=== PATIENT | female | born 1940 | race Caucasian/White ===

== ENCOUNTER 2019-08-22 05:51 | Inpatient (IN) | payer OTHER ==
[2019-08-20 12:07] VITALS: BMI 32.0
[2019-08-22] MEDS ORDERED: MIDAZOLAM HCL 2 MG/2 ML SINGLE DOSE VIAL ONE (07:06)
[2019-08-22] MEDS ORDERED: BUPIVACAINE LIPOSOME/PF (EXPAREL) 266 MG/20 ML VIAL ONE (07:07)
[2019-08-22] MEDS ORDERED: SODIUM CHLORIDE 0.9% P/F 10 ML VIAL IJ ONE (07:07)
[2019-08-22] MEDS ORDERED: BUPIVACAINE HCL/PF 0.5% (5MG/ML) 10 ML VIAL ONE (08:18)
[2019-08-22] MEDS ORDERED: PROPOFOL 20 ML ONE ×4 (08:19)
[2019-08-22] MEDS ORDERED: EPHEDRINE SULFATE/0.9% NACL/PF 50 MG/10 ML SYRINGE NR ONE (08:19)
[2019-08-22] MEDS ORDERED: VANCOMYCIN 1,000 MG VIAL (RESTRICTED TO ID ONLY) ONE (08:25)
[2019-08-22] MEDS ORDERED: TRANEXAMIC ACID 1000 MG/10 ML VIAL IVPUSH ONE (10:00)
[2019-08-22] MEDS ORDERED: CEFAZOLIN 2 GM in DEXTROSE 5%-WATER - 50 ML IVPB ONE (10:00)
[2019-08-22] MEDS ORDERED: VANCOMYCIN 1,000 MG in DEXTROSE 5%-WATER - 250 ML IVPB ONE (10:00)
[2019-08-22] MEDS ORDERED: BENZOIN/ALOE VERA/STORAX/TOLU 58 ML BOTTLE ONE (10:50)
[2019-08-22] MEDS ORDERED: MAGNESIUM HYDROX 2400MG/30ML ORAL SUSPENSION 30 ML CUP PO PRN (10:54)
[2019-08-22] MEDS ORDERED: MAG HYDROX/AL HYDROX/SIMETH 30 ML UNIT-DOSE CUP PO PRN (10:54)
--- NOTE | 2019-08-22 10:57 | PN ---
Progress Note (short form) - Note Progress Note: 79F s/p RIGHT total knee replacement & right patellar lateral release POD #0. -Pain control: per anaesthesia team. -DVT PPx: -Chemical: ASA 81mg PO BID x 6 weeks. -Mechanical: SORAYA's, SCD's. -Incentive spirometry q15 min. -PT/OT/Rehab, OOB. -WBAT RLE. -Post-op Ancef x 3 doses. -f/u post-op TOV: 8 hours max. -f/u AM labs. -Diet as tolerated. -Care per medical hospitalist team. -Discharge planning: f/u [facility] [place] Office next ; call for appointment . -Will follow. Fitz Pardo MD (Orthopaedic Surgery).
--- NOTE | 2019-08-22 10:59 | OP ---
Operative Note - Note: Operative Date: 08/22/19 Pre-Operative Diagnosis: Right knee DJD Operation: Right TKA Findings: Tourniquet Pressure: 350mmHg Tourniquet Time: 109 minutes Implants: [employer]. Femur - 4. Tibia - 5. Poly - 11mm, TS. Patella - 27mm, symmetric Post-Operative Diagnosis: Same as Pre-op Surgeon: Fitz Pardo Layout Former: Barron Pardo Anesthesiologist/MERCHANDISE PRESENTATION MANAGER: Rosalind Tinoco Anesthesia: Spinal Specimens Removed: Bone, soft tissue Estimated Blood Loss (mls): 0 Drains & Tubes with Location: 1 x deep HemoVac Fluid Volume Replaced (mls): 1,200 (Crystalloid) Operative Report Dictated: Yes
[2019-08-22] MEDS ORDERED: CEFAZOLIN 2 GM/D5W 2 GRAM/50 ML ML IVPB SCH (11:00)
[2019-08-22] MEDS ORDERED: LACTATED RINGERS SOLUTION 1,000 ML IV SCH (11:00)
[2019-08-22] MEDS ORDERED: ACETAMINOPHEN 325 MG TABLET (FP) ONE (11:42)
[2019-08-22] MEDS: ACETAMINOPHEN 325 MG TABLET (FP) PO SCH ×2 (11:50→18:05)
[2019-08-22] MEDS: oxyCODONE HCL 5 MG TABLET PO PRN ×4 (12:00→21:30)
--- NOTE | 2019-08-22 13:05 | HP ---
HISTORY OF PRESENT ILLNESS: 79 year-old female with a PMH significant for HTN, COPD, and DJD s/p right total knee arthroplasty today with Dr. aPrdo. Recent Travel: No PAST MEDICAL HISTORY: Hypertension COPD PAST SURGICAL HISTORY: None reported Social History: Smoking: never Alcohol: no Drugs: no Family History Father 62 MA; mother Allergies Sulfa (Sulfonamide Antibiotics) Allergy (Severe, Verified 08/20/19 11:56) Rash ibuprofen Adverse Reaction (Severe, Verified 08/20/19 11:57) RBC'S DROPPED HOME MEDICATIONS: Home Medications Medication Instructions Recorded Amlodipine Besylate 10 mg PO DAILY 08/20/19 Ascorbic Acid [Vitamin C] 1,000 mg PO DAILY 08/20/19 Losartan Potassium 100 mg PO DAILY 08/20/19 Lovastatin 20 mg PO HS 08/20/19 Omeprazole 20 mg PO DAILY 08/20/19 REVIEW OF SYSTEMS CONSTITUTIONAL: Absent: fever, chills, diaphoresis, generalized weakness, malaise, loss of appetite, weight change HEENT: Absent: rhinorrhea, nasal congestion, throat pain, throat swelling, difficulty swallowing, mouth swelling, ear pain, eye pain, visual changes CARDIOVASCULAR: Absent: chest pain, syncope, palpitations, irregular heart rate, lightheadedness, peripheral edema RESPIRATORY: Absent: cough, shortness of breath, dyspnea with exertion, orthopnea, wheezing, stridor, hemoptysis GASTROINTESTINAL: Absent: abdominal pain, abdominal distension, nausea, vomiting, diarrhea, constipation, melena, hematochezia GENITOURINARY: +uncomfortable bladder fullness Absent: dysuria, frequency, urgency, hesitancy, hematuria, flank pain, genital pain MUSCULOSKELETAL: Absent: myalgia, arthralgia, joint swelling, back pain, neck pain SKIN: Absent: rash, itching, pallor HEMATOLOGIC/IMMUNOLOGIC: Absent: easy bleeding, easy bruising, lymphadenopathy, frequent infections ENDOCRINE: Absent: unexplained weight gain, unexplained weight loss, heat intolerance, cold intolerance NEUROLOGIC: Absent: headache, focal weakness or paresthesias, dizziness, unsteady gait, seizure, mental status changes, bladder or bowel incontinence PSYCHIATRIC: Absent: anxiety, depression, suicidal or homicidal ideation, hallucinations. PHYSICAL EXAMINATION Vital Signs - 24 hr 08/22/19 08/22/19 08/22/19 06:48 11:10 11:15 Temperature 98.3 F 97.7 F Pulse Rate 98 H 76 68 Respiratory 18 19 18 Rate Blood Pressure 132/76 119/44 L 118/59 L O2 Sat by Pulse 98 Oximetry (%) 08/22/19 08/22/19 08/22/19 11:20 11:25 11:40 Temperature Pulse Rate 67 68 69 Respiratory 18 16 20 Rate Blood Pressure 118/49 L 111/57 L 114/54 L O2 Sat by Pulse 98 98 98 Oximetry (%) 08/22/19 11:52 Temperature Pulse Rate 69 Respiratory 20 Rate Blood Pressure 114/54 L O2 Sat by Pulse 98 Oximetry (%) GENERAL: Awake, alert, and fully oriented, in no acute distress. LUNGS: Breath sounds equal, clear to auscultation bilaterally. No wheezes, and no crackles. No accessory muscle use. HEART: Regular rate and rhythm, normal S1 and S2 ABDOMEN: Soft, nontender, not distended UPPER EXTREMITIES: 2+ pulses, warm, well-perfused. No cyanosis. No clubbing. No peripheral edema. RLE: Surgical dressing c/d/i; ice pack; +Hemovac sanguinous drainage; +flex/extend toes, sensory intact NEUROLOGICAL: Cranial nerves II-XII intact. Normal speech. Laboratory Results - last 24 hr 08/22/19 08/22/19 08:13 08:14 Blood Type O POSITIVE O POSITIVE Antibody Screen Negative Pre op Hgb 12.3 BUN 18 Cr 0.8 Intra op LR 1200ccs EBL 5ccs Cefazolin 2g; Vanc x 1g ASSESSMENT/PLAN 79 year-old female with a PMH significant for HTN, COPD, and DJD s/p right total knee arthroplasty today with Dr. Pardo. Right total knee arthoplasty --POD #0 --perioperative antibiotics per surgery --pain management per surgery --ASA 81mg BID --protonix --bowel regimen --incentive spirometry --Hemovac drain, monitor output Urinary retention --patient has not voided for several hours, discussed with Dr. Barron Pardo, chet harmoney Hypertension --resume amlodipine, losartan in am COPD --Symbicort FEN Fluids: LR@100mL/hr Electrolytes: replete as indicated Nutrition: regular diet DVT prophylaxis: OOB, ambulation, SCDs, TEDs, ASA 81mg BID Physical therapy Dispo: continues to require inpatient care. Full code. Visit type - Emergency Visit Emergency Visit: No - New Patient This patient is new to me today: Yes Date on this admission: 08/22/19 - Critical Care Critical Care patient: No
[2019-08-22] MEDS: CEFAZOLIN 2 GM/D5W 2 GRAM/50 ML ML IVPB SCH ×2 (14:51→20:12)
[2019-08-22] MEDS ORDERED: PT OWN MED DRAWER 7, Y5N ONE (21:21)
[2019-08-22] MEDS: ASPIRIN 81 MG CHEWABLE TABLETS PO SCH (21:24)
[2019-08-22] MEDS: SENNOSIDES/DOCUSATE COMBO (SENNA PLUS) TABLET (UD) PO SCH (21:24)
[2019-08-22] MEDS: BUDESONIDE/FORMETEROL FUMARATE 160/4.5 mcg INHALER IH SCH (21:24)
[2019-08-22] MEDS ORDERED: PATIENT'S OWN MEDICATION (NON-FORMULARY) (Lovastatin [Lovastatin] 20 MG) PO SCH (22:00)
[2019-08-22] MEDS ORDERED: oxyCODONE HCL 10 MG SUSTAINED ACTING TABLET PO SCH (22:00)
[2019-08-23] MEDS: ACETAMINOPHEN 325 MG TABLET (FP) PO SCH ×5 (00:10→23:11)
--- NOTE | 2019-08-23 00:42 | OP ---
DATE OF OPERATION: 08/22/2019 SURGEON: Fitz Pardo MD. TRAFFIC SURVEY TECHNICIAN: Barron Pardo MD; JOANN Mayberry. PREOPERATIVE DIAGNOSIS: Tricompartmental osteoarthritis, right knee with fixed valgus deformity. POSTOPERATIVE DIAGNOSIS: Tricompartmental osteoarthritis, right knee with fixed valgus deformity. OPERATION: 1. Right cemented total knee arthroplasty. (03282) 2. Open lateral release. (09562) ANESTHESIA: Conscious sedation with spinal anesthesia and peripheral nerve block. ANTIBIOTICS GIVEN: 2 g Kefzol, 1 g vancomycin preoperative; 1 g Ancef at the time of release of the tourniquet. TOURNIQUET: Released at 105 minutes. OPERATION DETAILS: OPERATION DETAILS: The patient was correctly identified, brought in operating room. Right lower extremity was prepped, draped in the routine manner with Betadine scrub solution, wiped off with alcohol, DuraPrep applied. Timeout was called. The imaging was available for intraoperative evaluation. The knee was flexed at 45 degrees. Incision was made 2 inches above the superimposed patella, extending all the way down to just distal to the pubic tubercle. The skin incision was taken through the subcutaneous fat to the fascia. The proximal medial aspect of the tibial soft tissue was freed off the tibia using sharp dissection extending all the way to the back of the tibia, that is the junction of the medial surface and the posterior border of the tibia. The dissection was then curved at the level of the inferior pole of the patella medially. At that point, the epimysium of vastus medialis was dissected off the actual muscle, and the muscle lifted from linea aspera maintaining the entirety integrity of the muscle, and the distal incision up to this proximal incision to lift the entire and free the entire muscle and quadriceps mechanism anteriorly without any difficulty. With finger digital palpation, the suprapatellar pouch space was entered, and then a blunt Hohmann into position. The suprapatellar pouch itself was excised so as to expose the superior surface of the actual femur. The knee was flexed with the tibia in external rotation. The patella was subluxed laterally, giving excellent exposure to the knee. Severe tricompartment osteoarthritis encountered. The knee itself, the first cuts made also protecting the soft tissues with sharp Hohmanns and blunt Hohmanns lifting interiorizing the tibia with the tibial jig. This was centered on the pannus and on the posterior tibial eminence, and the height was based on 2 mm off the betzaida on the lateral side. The cut was made with no complications. The starter femoral hole was made slightly medial to the intracondylar notch, this to accommodate the deficiency of the lateral femoral condyle. The jig was set at 8 mm resection and 4 degrees of valgus. The bony cut was made, and then the knee extended to check its alignment and gap, and this was proved to be very adequate. The appropriate jig systems were utilized, a size 4 femur and the measurement for a size 5 tibia. All jig cuts were made with the appropriate jig systems. The drilling of the tibia and the keel cuts were made appropriately. The trial components were inserted. The patella was then cut [place] line, that is from the patellar ligament to the quadriceps tendon. The jig of the femur also took into account Yoan line as well as the transepicondylar axis and pairing up to the originally cut tibia. The flexion, extension gaps were even at 11 mm. Once this had been performed, all jig cuts were satisfactory, and trialing components revealed excellent seating of all components with an 11-mm polyethylene; this seemed to be the best fit for flexion as well as complete stability of extension and flexion. The bone bed was thoroughly lavaged with pulse lavage. All fluid sucked out of the interstices. Cementing with low-viscosity cement and pressurized into the bone bed performed. All of the implants were seated, a size 4 femur, size 5 tibia, size 27-mm patellar button, and an 11 polyethylene liner. All extraneous cement was removed after it had cured and trialing once again with the patellar polyethylene revealed the most satisfactory articulation. A TS posterior stabilized polyethylene utilized because of the stress to the medial collateral ligament due to the valgus deformity. The current tracking was suboptimal. It was wanting to slide off. An approximately 3-inch lateral release was performed; this solved the problem completely. The wounds were then again thoroughly lavaged. Closure: Retinacular tissue with number 1 Vicryl, that is in the medial side. The vastus medialis was completely intact as was the quadriceps mechanism. The subcutaneous tissue was closed with number 1 Vicryl, and skin 3- 0 Monocryl with Steri-Strips. Drainage, one 8-inch Hemovac brought up laterally draining the subvastus bed. No complications. X-rays were taken, showed excellent positioning of implants. MD ALEXANDER [id number] MTDD
[2019-08-23] MEDS: oxyCODONE HCL 5 MG TABLET PO PRN ×2 (01:28→23:11)
[2019-08-23] MEDS: CEFAZOLIN 2 GM/D5W 2 GRAM/50 ML ML IVPB SCH (01:29)
[2019-08-23] MEDS: ONDANSETRON 4 MG/2 ML VIAL IVPUSH PRN ×3 (07:37→21:04)
[2019-08-23 07:56] LABS: HEMATOCRIT 31.5 % (32.4-45.2); HEMOGLOBIN 10.1 GM/dl (10.7-15.3); MCH 30.8 pg (25.7-33.7); MCHC 32.1 g/dl (32.0-36.0); MEAN CELL VOLUME 95.9 fl (80-96); MEAN PLT VOLUME 7.5 fl (7.5-11.1); PLATELET COUNT 256 K/MM3 (134-434); RBC 3.29 M/mm3 (3.60-5.2); RDW 13.1 % (11.6-15.6); WHITE BLOOD COUNT 11.1 K/mm3 (4.0-10.8)
[2019-08-23 08:00] LABS: CALCIUM 9.4 mg/dl (8.5-10); CREATININE 0.8 mg/dl (0.55-1.3); MAGNESIUM 1.6 mg/dL (1.8-2.4); POTASSIUM 4.5 mmol/L (3.5-5.1)
[2019-08-23] MEDS ORDERED: PT OWN MED DRAWER 7, Y5N ONE (08:06)
--- NOTE | 2019-08-23 08:36 | PN ---
Physical Exam: SUBJECTIVE: Patient seen and examined oob to chair. Observed walking with PT. Complained of nausea earlier. OBJECTIVE: Vital Signs Period Temp Pulse Resp BP Sys/Hardy Pulse Ox Last 24 Hr 97.7 F-98.9 F 67-86 16-20 111-137/44-59 94-98 GENERAL: Awake, alert, and fully oriented, in no acute distress. LUNGS: Breath sounds equal, clear to auscultation bilaterally. No wheezes, and no crackles. No accessory muscle use. HEART: Regular rate and rhythm, normal S1 and S2 ABDOMEN: Soft, nontender, not distended UPPER EXTREMITIES: 2+ pulses, warm, well-perfused. No cyanosis. No clubbing. No peripheral edema. RLE: Surgical dressing c/d/i; ice pack; +Hemovac sanguinous drainage; +flex/extend toes, sensory intact NEUROLOGICAL: Cranial nerves II-XII intact. Normal speech. Laboratory Results - last 24 hr 08/22/19 08/22/19 08/23/19 08:13 08:14 06:40 WBC 11.1 H RBC 3.29 L Hgb 10.1 L Hct 31.5 L MCV 95.9 MCH 30.8 MCHC 32.1 RDW 13.1 Plt Count 256 MPV 7.5 Sodium Potassium Chloride Carbon Dioxide Anion Gap BUN Creatinine Est GFR (CKD-EPI)AfAm Est GFR (CKD-EPI)NonAf Random Glucose Calcium Magnesium Blood Type O POSITIVE O POSITIVE Antibody Screen Negative 08/23/19 06:40 WBC RBC Hgb Hct MCV MCH MCHC RDW Plt Count MPV Sodium 128 L Potassium 4.5 Chloride 96 L Carbon Dioxide 25 Anion Gap 7 L BUN 15.0 Creatinine 0.8 Est GFR (CKD-EPI)AfAm 80.14 Est GFR (CKD-EPI)NonAf 69.14 Random Glucose 132 H Calcium 9.4 Magnesium 1.6 L Blood Type Antibody Screen Active Medications Generic Name Dose Route Start Last Admin Trade Name Freq PRN Reason Stop Dose Admin Acetaminophen 650 mg 08/22/19 12:00 08/23/19 05:56 Tylenol - PO 08/25/19 11:59 650 mg Q6H TARA Administration Al Hydroxide/Mg Hydroxide 30 ml 08/22/19 10:54 Mylanta Oral Suspension - PO Q4H PRN DYSPEPSIA Amlodipine Besylate 10 mg 08/23/19 10:00 Norvasc - PO DAILY [facility] Aspirin 81 mg 08/22/19 22:00 08/22/19 21:24 Asa - PO 81 mg BID TARA Administration Budesonide/Formoterol Fumarate 2 puff 08/22/19 22:00 08/22/19 21:24 Symbicort 160/4.5mcg - IH 2 puff BID TARA Administration Losartan Potassium 100 mg 08/23/19 10:00 Cozaar - PO DAILY [facility] Magnesium Hydroxide 30 ml 08/22/19 10:54 Milk Of Magnesia - PO PRN PRN CONSTIPATION Non-Formulary Medication 20 mg 08/22/19 22:00 Lovastatin [Lovastatin] PO HS [facility] Ondansetron HCl 4 mg 08/22/19 10:54 08/23/19 07:37 Zofran Injection IVPUSH 4 mg Q6H PRN Administration NAUSEA Oxycodone HCl 5 mg 08/22/19 11:06 Roxicodone - PO Q3H PRN PAIN LEVEL 1-5 Oxycodone HCl 10 mg 08/22/19 11:06 08/23/19 01:28 Roxicodone - PO 10 mg Q3H PRN Administration PAIN LEVEL 6-10 Pantoprazole Sodium 40 mg 08/23/19 10:00 Protonix - PO DAILY [facility] Senna/Docusate Sodium 2 tablet 08/22/19 22:00 08/22/19 21:24 Pericolace - PO 2 tablet BID TARA Administration Pre op Hgb 12.3 BUN 18 Cr 0.8 Intra op LR 1200ccs EBL 5ccs Cefazolin 2g; Vanc x 1g ASSESSMENT/PLAN 79 year-old female with a PMH significant for HTN, COPD, and DJD s/p right total knee arthroplasty today with Dr. Pardo. Right total knee arthoplasty --POD #1 --perioperative antibiotics per surgery --pain well-managed with PO meds --ASA 81mg BID --protonix --bowel regimen --incentive spirometry --Hemovac drain, monitor output Urinary retention --sims placed yesterday after patient had not urinated several hours after surgery; urine is cloudy --UA & UC ordered --start ceftriaxone Hypertension --continue amlodipine, losartan COPD --Symbicort FEN Fluids: PO intake adequate Electrolytes: replete as indicated Nutrition: regular diet DVT prophylaxis: OOB, ambulation, SCDs, TEDs, ASA 81mg BID Physical therapy Dispo: continues to require inpatient care. Full code. Visit type - Emergency Visit Emergency Visit: No - New Patient This patient is new to me today: No - Critical Care Critical Care patient: No
[2019-08-23] MEDS ORDERED: MAGNESIUM SULF 50% (8.12 MEQ/2 ML-1 GM VIAL) IVPB ONE (08:39)
[2019-08-23] MEDS ORDERED: MAGNESIUM SULFATE IN WATER 2 GM/50 ML IVPB IVPB ONE (08:45)
[2019-08-23] MEDS: BUDESONIDE/FORMETEROL FUMARATE 160/4.5 mcg INHALER IH SCH ×2 (09:00→23:14)
[2019-08-23] MEDS: SENNOSIDES/DOCUSATE COMBO (SENNA PLUS) TABLET (UD) PO SCH ×2 (09:01→21:04)
[2019-08-23] MEDS: PANTOPRAZOLE 40 MG TABLET PO SCH (09:01)
[2019-08-23] MEDS: ASPIRIN 81 MG CHEWABLE TABLETS PO SCH ×2 (09:01→21:06)
--- NOTE | 2019-08-23 09:59 | PN ---
Progress Note (short form) - Note Progress Note: Surgery POD #1 right TKA patient seen and examined at bedside states She has been OOB with PT. Her pain is controlled and she is tolerating her diet although she does have some nausea and reduced appetite. She denies any CP, SOB, Vomiting, fever or chills. Vital Signs Temp 97.6 F 08/23/19 13:47 Pulse 71 08/23/19 13:47 Resp 18 08/23/19 13:47 BP 128/54 L 08/23/19 13:47 Pulse Ox 95 08/23/19 09:32 Intake & Output 08/22/19 08/23/19 08/23/19 23:59 11:59 23:59 Intake Total 550 1640 390 Output Total 2280 220 315 Balance -1730 1420 75 Intake: IV 150 800 Lactated Ringers Solution 800 1,000 ml @ 100 mls/hr IV ASDIR TARA Rx#: [id number] IVPB 100 Oral 400 740 390 Output: Drainage 30 20 45 Right Knee 30 20 45 Urine 2250 200 270 Sims 2250 200 270 Other: Voiding Method Indwelling Catheter Indwelling Catheter CBC, BMP 08/23/19 06:40 08/23/19 06:40 PE: A&Ox3, NAD unlabored resp on RA Right LE dressing c/d/i with drain secure in good position. ROM from 75-0 degree s B/L LE compartments soft, supple and non-tender with +DP pulses. Problem List - Problems (1) S/P total knee replacement Assessment/Plan: POD#1 right TKA and patella lateral release, doing well. -d/c sims, TOV with post void bladder scan -Ice right knee after PT -DVT PPx: -Chemical: ASA 81mg PO BID x 6 weeks. -Mechanical: SORAYA's, SCD's. -Incentive spirometry q15 min. -PT/OT/Rehab, OOB. -WBAT RLE. -Post-op Ancef x 3 doses. -f/u TOV: 8 hours max. -f/u AM labs trend H&H -Diet as tolerated. -Care per medical hospitalist team. -Discharge planning: f/u [facility] [place] [facility] next ; call for appointment . -Will follow. Code(s): Z96.659 - PRESENCE OF UNSPECIFIED ARTIFICIAL KNEE JOINT
[2019-08-23] MEDS ORDERED: PATIENT'S OWN MEDICATION (NON-FORMULARY) (Omeprazole 20 MG) PO SCH (10:00)
[2019-08-23] MEDS ORDERED: PATIENT'S OWN MEDICATION (NON-FORMULARY) (Losartan Potassium [Losartan Potassium] 100 MG) PO SCH (10:00)
[2019-08-23] MEDS: amLODIPine BESYLATE 10 MG TABLET (FP) PO SCH (10:54)
[2019-08-23] MEDS: LOSARTAN POTASSIUM 50 MG TABLET (FP) PO SCH (10:54)
[2019-08-23] MEDS ORDERED: SODIUM CHLORIDE 500 ML IV STA (12:19)
[2019-08-23] MEDS ORDERED: SODIUM CHLORIDE 1,000 ML IV SCH (12:30)
[2019-08-23 12:36] LABS: CALCIUM OXALATE CRYSTALS RARE /hpf (NONE SEEN); EPITHELIAL CELLS FEW /hpf
[2019-08-23] MEDS ORDERED: cefTRIAXone SODIUM 1 GM VIAL ONE (13:39)
[2019-08-23] MEDS ORDERED: DEXTROSE 5%-WATER - 50 ML IVPB ONE (13:40)
[2019-08-23] MEDS: CEFTRIAXONE 1 GM in DEXTROSE 5%-WATER - 50 ML IVPB SCH (13:56)
--- NOTE | 2019-08-23 14:36 | PN ---
Progress Note (short form) - Note Progress Note: 79F POD1 R TKR under spinal anesthetic with peripheral nerve blocks for post operative pain relief. Pt states pain well controlled and reports no anesthetic complications. AVSS. Continue current regimen.
[2019-08-23 17:08] LABS: CREATININE 0.6 mg/dl (0.55-1.3); POTASSIUM 4.1 mmol/L (3.5-5.1)
[2019-08-24 06:07] VITALS: TEMP 98.3
--- NOTE | 2019-08-24 06:35 | PN ---
Progress Note (short form) - Note Progress Note: ORTHOPAEDIC SURGERY POD #2 s/p Right TKR Seen and examined at bedside. Sitting in chair with legs in full extension and towel roll under heels. Still c/o incisional pain, adequate management with medications ordered She has been OOB with PT. Per RN, she c/o suprapubic discomfort at 4AM. They bladder scanned her and showed she was in retention. Straight cathed and got 1L out. She has voided multiple times since then without difficulty. Tolerating regular diet. Physical Therapy notes reviewed. Denies n/v/f/c, CP, palpitations, SOB or PACHECO Last Vital Signs Temp Pulse Resp BP Pulse Ox 98.3 F 86 18 136/50 L 95 08/24/19 06:00 08/24/19 06:00 08/24/19 06:00 08/24/19 06:00 08/23/19 19:52 24 Hour Output 08/23/19 08/23/19 08/23/19 08/24/19 05:55 13:38 19:54 06:35 Hemovac 20 45 30 80 PE GEN: A&Ox3, NAD PULM: unlabored resp on RA RLE: dressing c/d/i, drain secured in good position. Draindc'd on rounds. ROM 90-0 degrees LE: all compartments soft, supple and non-tender. palpable DP 2+ Problem List - Problems (1) S/P total knee replacement Assessment/Plan: POD #2 right TKA. -Prn pain management -Ice right knee -DVT PPx: -Chemical: ASA 81mg PO BID x 6 weeks. -Mechanical: SORAYA's, SCD's. -Incentive spirometer -PT/OT/Rehab, OOB. -WBAT RLE. -f/u CBC -Reg diet -Hemovac dc'd on rounds -Cont care per medical hospitalist team. -Cleared for discharge home today. - f/u [facility] [place] Office...call for appointment . -Above plan discussed with Dr. Barron Pardo and agrees. Code(s): Z96.659 - PRESENCE OF UNSPECIFIED ARTIFICIAL KNEE JOINT
[2019-08-24] MEDS: ACETAMINOPHEN 325 MG TABLET (FP) PO SCH (06:42)
[2019-08-24] MEDS: oxyCODONE HCL 5 MG TABLET PO PRN (06:42)
[2019-08-24 08:07] LABS: HEMATOCRIT 32.1 % (32.4-45.2); HEMOGLOBIN 10.5 GM/dl (10.7-15.3); MCH 31.1 pg (25.7-33.7); MCHC 32.6 g/dl (32.0-36.0); MEAN CELL VOLUME 95.2 fl (80-96); MEAN PLT VOLUME 7.6 fl (7.5-11.1); PLATELET COUNT 235 K/MM3 (134-434); RBC 3.37 M/mm3 (3.60-5.2); RDW 12.4 % (11.6-15.6); WHITE BLOOD COUNT 8.7 K/mm3 (4.0-10.8)
[2019-08-24] MEDS ORDERED: cefTRIAXone SODIUM 1 GM VIAL ONE (09:13)
[2019-08-24] MEDS ORDERED: DEXTROSE 5%-WATER - 50 ML IVPB ONE (09:13)
[2019-08-24 09:30] VITALS: BP 130/59; PULSE 90
[2019-08-24] MEDS: CEFTRIAXONE 1 GM in DEXTROSE 5%-WATER - 50 ML IVPB SCH (09:30)
[2019-08-24] MEDS: BUDESONIDE/FORMETEROL FUMARATE 160/4.5 mcg INHALER IH SCH (09:30)
[2019-08-24] MEDS: PANTOPRAZOLE 40 MG TABLET PO SCH (09:30)
[2019-08-24] MEDS: SENNOSIDES/DOCUSATE COMBO (SENNA PLUS) TABLET (UD) PO SCH (09:30)
[2019-08-24] MEDS: amLODIPine BESYLATE 10 MG TABLET (FP) PO SCH (09:30)
[2019-08-24] MEDS: ASPIRIN 81 MG CHEWABLE TABLETS PO SCH (09:30)
[2019-08-24] MEDS: LOSARTAN POTASSIUM 50 MG TABLET (FP) PO SCH (09:30)
--- NOTE | 2019-08-27 16:23 | PATH ---
Surgical Pathology Report Patient Name: KONRAD PETERSEN Med. Rec. #: [id number] /Age/Gender: 1940 (Age: 79) / F Account: [id number] Location: [facility] MED-SURG Taken: 08/22/2019 Received: 08/22/2019 Reported: 08/27/2019 Physicians: Fitz Pardo M.D. Specimen(s) Received BONES RIGHT KNEE Clinical History Osteoarthritis right knee Final Diagnosis RIGHT KNEE BONES, RESECTION: DEGENERATIVE JOINT DISEASE, RIGHT KNEE. Electronically Signed Marcelino Webber M.D. Gross Description Received in formalin labeled "bones right knee," is a 10.0 x 7.5 x 1.7 cm aggregate of multiple portions of bone and soft tissue. The tibial plateau measures 7.5 x 5.7 x 2.2 cm. There is a 3.0 cm in greatest dimension area of eburnation present. The remaining articular surfaces are lucas and diffusely granular. The underlying trabecular bone is yellow and hard. Detective Lieutenant sections are submitted in one cassette, following decalcification. 08/24/2019 [facility]08/24/2019
--- NOTE | 2019-08-29 18:34 | DS ---
Physical Exam: SUBJECTIVE: Patient seen and examined OBJECTIVE: PHYSICAL EXAM GENERAL: Awake, alert, and fully oriented, in no acute distress. LUNGS: Breath sounds equal, clear to auscultation bilaterally. No wheezes, and no crackles. No accessory muscle use. HEART: Regular rate and rhythm, normal S1 and S2 ABDOMEN: Soft, nontender, not distended UPPER EXTREMITIES: 2+ pulses, warm, well-perfused. No cyanosis. No clubbing. No peripheral edema. RLE: Surgical dressing c/d/i; ice pack; +flex/extend toes, sensory intact NEUROLOGICAL: Cranial nerves II-XII intact. Normal speech. LABS CBCD WBC 8.7 K/mm3 (4.0-10.8) 08/24/19 06:45 RBC 3.37 M/mm3 (3.60-5.2) L 08/24/19 06:45 Hgb 10.5 GM/dl (10.7-15.3) L 08/24/19 06:45 Hct 32.1 % (32.4-45.2) L 08/24/19 06:45 MCV 95.2 fl (80-96) 08/24/19 06:45 MCHC 32.6 g/dl (32.0-36.0) 08/24/19 06:45 RDW 12.4 % (11.6-15.6) 08/24/19 06:45 Plt Count 235 K/MM3 (134-434) 08/24/19 06:45 MPV 7.6 fl (7.5-11.1) 08/24/19 06:45 CMP Sodium 125 mmol/L (136-145) L 08/23/19 16:45 Potassium 4.1 mmol/L (3.5-5.1) 08/23/19 16:45 Chloride 92 mmol/L (98-107) L 08/23/19 16:45 Carbon Dioxide 25 mmol/L (21-32) 08/23/19 16:45 Anion Gap 8 MMOL/L (8-16) 08/23/19 16:45 BUN 13.0 mg/dl (7-18) 08/23/19 16:45 Creatinine 0.6 mg/dl (0.55-1.3) 08/23/19 16:45 Calcium 9.0 mg/dl (8.5-10) 08/23/19 16:45 HOSPITAL COURSE: Date of Admission:08/22/19 Date of Discharge: 08/24/19 79 year-old female with a PMH significant for HTN, COPD, and DJD s/p right total knee arthroplasty with Dr. Pardo. Right total knee arthoplasty --POD #2 --perioperative antibiotics complete --pain well-managed with PO meds --ASA 81mg BID x 6 weeks Urinary retention --sims placed post-operatively, dc'd on POD #2, voiding freely --treated with ceftriaxone Hypertension --continued amlodipine, losartan COPD --Symbicort Minutes to complete discharge: 35 Discharge Summary Problems reviewed: Yes Reason For Visit: PRIMARY OSTEOARTHRITIS RIGHT KNEE Current Active Problems DVT, popliteal, acute (Acute) Inability to ambulate due to knee (Acute) Urinary retention (Acute) COPD (chronic obstructive pulmonary disease) (Chronic) Lung nodule (Chronic) Condition: Improved - Instructions Diet, Activity, Other Instructions: Dr. Pardo Discharge Instructions for Knee Replacement Post Operative Instructions Physical activity Physical Therapist will come to your home for the first 5 days. You will be set up with outpatient PT at your first post-operative visit. Use assistive devices for ambulation at all times. Weight bearing as tolerated on your surgical side. Do not put pillow under knee. May put pillow under heel. Wound care Leave your surgical dressing in place. Do not change the dressing until seen by your surgeon in the office. No baths or showers. Do not submerge your incision. Do not apply any ointments or lotions to your incision. Please call the office if your dressing is soiled/dirty or is falling off. Apply Graduated Compression Stockings (TEDS) to both lower extremities - remove daily for hygiene ONLY. Diet There are no dietary restrictions. Eat healthy, high-fiber foods. Drink 6 to 8 glasses of liquid each day. This will assist in keeping your bowels are regular. Pain management Any pain prescription medication ordered should be taken as prescribed for mo derate to severe pain. Do not take additional Tylenol while taking Percocet. Take Aspirin 81 mg two times a day for a total of 6 weeks to prevent blood clots. Call Dr. Pardo for any of the following: Severe pain not relieved by medication Fever of 101 or higher Excessive bleeding or drainage on dressing Inability to urinate If you experience chest pain or shortness of breath, please seek emergency care immediately. Please call the office at to confirm your post-op appointment for the week following surgery. Referrals: Barron Pardo MD [Staff Physician] - Disposition: [facility]/HOME HEALTH CARE - Home Medications Comprehensive Discharge Medication List: Ambulatory Orders Amlodipine Besylate 10 mg PO DAILY 08/20/19 Ascorbic Acid [Vitamin C] 1,000 mg PO DAILY 08/20/19 Losartan Potassium 100 mg PO DAILY 08/20/19 Lovastatin 20 mg PO HS 08/20/19 Omeprazole 20 mg PO DAILY 08/20/19 Oxycodone HCl/Acetaminophen [Percocet 5-325 mg Tablet] 1 tab PO Q6H #20 tablet MDD 4 08/24/19 Prescription Drug Monitoring Program (I-STOP) results: I-STOP reviewed and no issues identified This patient is new to me today: No Emergency Visit: No Critical Care patient: No - Discharge Referral Referred to [facility] No
== END 2019-08-24 12:03 | disposition home health service (06) | DRG 470 ==
LOC: FM/S 05:51
PROVIDERS: ADMIT Orthopaedic Surgery Orthopaedic Surgery of the Spine; ATTEND Nurse Practitioner Acute Care
PROC: 0SRC0J9 Replacement of Right Knee Joint with Synthetic Substitute, Cemented, Open Approach (ICD-10-PCS; principal; 2019-08-22 09:09)
DX: M17.11 Unilateral primary osteoarthritis, right knee (principal); J44.9 Chronic obstructive pulmonary disease, unspecified; I10 Essential (primary) hypertension; R33.8 Other retention of urine; N99.89 Other postprocedural complications and disorders of genitourinary system; M21.061 Valgus deformity, not elsewhere classified, right knee; E78.5 Hyperlipidemia, unspecified; K21.9 Gastro-esophageal reflux disease without esophagitis
CPT/HCPCS: 36415; 73560-TC-RT-FY; 80048; 81003; 81015; 82565; 83735; 84300; 85027; 86850; 86900; 86901; 87086; 87186; 88304-TC; 88311-TC; 94760; 97116-GP; J7030

== ENCOUNTER 2019-11-12 12:35 | Inpatient (IN) | payer OTHER ==
--- NOTE | 2019-11-12 12:42 | PDOC ---
History of Present Illness - General History Source: Patient Exam Limitations: Clinical Condition - History of Present Illness Initial Comments: Rekha Graham is an 79 yo F w a pmh of HTN, COPD (no on home ) recent DVT of right popliteal deonte (on eliquis) , recent ortho surgeries (08/21 and 08/29), previous COVID 19 diagnosis, presents to the ED from [facility] sent in by Dr. Van bc she has an open and exposed wound at the right tibial tubercle. Apparently hardware is exposed and the wound has granulation tissue despite taking vancomycin. Orthopedist: Dr. Pardo PSH: R TKR, 2 c sections, 1 vaginal lift Social Hx: Denies toxic habits Allergies: Sulfa, ibuprofen Meds: 1. amlodipine 2. Losartan 3. lovastatin 4. Omeprazole 5. percocet 6. Apixaban 7. Bethanechol 8. ferrous sulfate 9. Vit c 10. Sennosides/docusate <Lamin Pollard - Last Filed: 11/12/19 14:10> <Deanne Corbett - Last Filed: 11/12/19 16:46> - General Chief Complaint: Revisit,Wound Recheck Stated Complaint: WOUND CHECK Time Seen by Provider: 11/12/19 12:39 Past History - Past Medical History Anemia: No Asthma: No Cancer: No Cardiac Disorders: No CVA: No COPD: Yes CHF: No Dementia: No Diabetes: No GI Disorders: Yes Disorders: Yes (h/o UTI) HTN: Yes Hypercholesterolemia: Yes Liver Disease: No Seizures: No Thyroid Disease: No - Surgical History Abdominal Surgery: No Appendectomy: No Cardiac Surgery: No Cholecystectomy: No Lung Surgery: No Neurologic Surgery: No Orthopedic Surgery: Yes (LEFT TKR 2015) - Psycho Social/Smoking Cessation Hx Smoking History: Never smoked Have you smoked in the past 12 months: No Hx Alcohol Use: Yes (SOCIALLY) Drug/Substance Use Hx: No Substance Use Type: Alcohol Hx Substance Use Treatment: No <Lamin Pollard - Last Filed: 11/12/19 14:10> <Deanne Corbett - Last Filed: 11/12/19 16:46> - Past Medical History Allergies/Adverse Reactions: Allergies Allergy/AdvReac Type Severity Reaction Status Date / Time Sulfa (Sulfonamide Allergy Severe Rash Verified 08/20/19 11:56 Antibiotics) ibuprofen AdvReac Severe RBC'S Verified 08/20/19 11:57 DROPPED Home Medications: Ambulatory Orders Ascorbic Acid [Vitamin C] 1,000 mg PO DAILY 08/20/19 Apixaban [Eliquis -] 5 mg PO BID tablet 09/03/19 Bethanechol Chloride [Bethanechol Chloride -] 50 mg PO TID tablet 09/03/19 Ferrous Sulfate [Feosol] 325 mg PO BID ud 09/03/19 Sennosides/Docusate Sodium [Pericolace -] 2 tablet PO BID tablet 09/03/19 Albuterol Sulfate Inhaler - [Ventolin HFA Inhaler -] 2 puff IH Q4H PRN inhaler 11/09/19 Amlodipine Besylate [Norvasc -] 5 mg PO DAILY tablet 11/09/19 Clotrimazole/Betamet Diprop [Lotrisone -] 1 applic TP BID tube 11/09/19 Metoclopramide HCl [Reglan -] 10 mg PO TIDAC tablet 11/09/19 Vancomycin/0.9 % Sod Chloride [Vanco 750 mg/250 ml-0.9% NaCl] 750 mg IV BID 30 Days plast..bag 11/09/19 Zinc Sulfate [Orazinc -] 220 mg PO DAILY@0800 14 Days capsule 11/09/19 Acetaminophen 325 mg PO 11/12/19 Amino Acids/Protein Hydrolys [Pro-Stat Awc Liquid Packet] 30 ml PO 11/12/19 Atorvastatin Calcium 10 mg PO 11/12/19 Ergocalciferol [Vitamin D2] 50,000 unit PO 11/12/19 Lanolin/Mineral Oil [Eucerin Original Lotion] 250 ml TP 11/12/19 Melatonin 3 mg PO 11/12/19 Review of Systems - Review of Systems Able to Perform ROS?: Yes Comments:: CONSTITUTIONAL: Absent: fever, no chills, no fatigue EYES: Absent: visual changes ENT: Absent: ear pain, no sore throat CARDIOVASCULAR: Absent: chest pain, no palpitations RESPIRATORY: Absent: cough, no SOB GI: Absent: abdominal pain, no nausea, no vomiting, no constipation, no diarrhea GENITOURINARY: Absent: dysuria, no frequency, no hematuria MUSKULOSKELETAL: Present: arthralgia Absent: back pain, no myalgia SKIN: Present: rash NEURO: Absent: headache <Lamin Pollard - Last Filed: 11/12/19 14:10> *Physical Exam - Physical Exam GENERAL: Well-appearing, well-nourished. No apparent distress. HEENT: Normocephalic, atraumatic. PERRL, EOM intact. CARDIOVASCULAR: Normal S1, S2. Regular rate and rhythm. PULMONARY: No evidence of respiratory distress. Lungs clear to auscultation bilaterally. No wheezing, rales or rhonchi. ABDOMEN: Soft, non-distended, non-tender. EXTREMITIES: Normal ROM in upper extremities. Right leg wound dressing. SKIN: Warm, dry. No rash NEUROLOGICAL: No focal neurological deficits. <Lamin Pollard - Last Filed: 11/12/19 14:10> - Vital Signs Last Vital Signs Temp Pulse Resp BP Pulse Ox 98.1 F 93 H 18 118/65 100 11/12/19 15:50 11/12/19 15:50 11/12/19 15:50 11/12/19 15:50 11/12/19 15:50 <Deanne Corbett - Last Filed: 11/12/19 16:46> ED Treatment Course - LABORATORY CBC & Chemistry Diagram: 11/12/19 13:41 11/12/19 13:41 <Lamin Pollard - Last Filed: 11/12/19 14:10> - LABORATORY CBC & Chemistry Diagram: 11/12/19 13:41 11/12/19 13:41 <Deanne Corbett - Last Filed: 11/12/19 16:46> Medical Decision Making - Medical Decision Making Rekha Graham is an 79 yo F w a pmh of HTN, COPD (no on home 02) recent DVT of right popliteal deonte (on eliquis) , recent ortho surgeries (08/21 and 08/29), previous COVID 19 diagnosis, presents to the ED from [facility] sent in by Dr. Van bc she has an open and exposed wound at the right tibial tubercle. Apparently hardware is exposed and the wound has granulation tissue despite taking vancomycin. DDx IBNLT: Surgical site infection, electrolyte/metabolic disturbance, Sepsis MDM: Patient here to be admitted for wound repair Dispo: Med/surg for Dr. Pardo <Lamin Pollard - Last Filed: 11/12/19 14:10> Discharge - Discharge Information Problems reviewed: Yes <Lamin Pollard - Last Filed: 11/12/19 14:10> - Discharge Information Problems reviewed: Yes - Admission Yes <Deanne Corbett - Last Filed: 11/12/19 16:46> - Discharge Information Clinical Impression/Diagnosis: S/P total knee replacement, Surgical wound infection Condition: Fair
--- NOTE | 2019-11-12 12:51 | PDOC ---
Attending Attestation - Resident Resident Name: Lamin Pollard - ED Attending Attestation I have performed the following: I have examined & evaluated the patient, The case was reviewed & discussed with the resident, I agree w/resident's findings & plan - HPI HPI: 11/12/19 12:50 79 /o female with PMH of HTN, COPD (no on home 02) recent DVT of right popliteal deonte (on eliquis) , recent ortho surgeries (08/21 and 08/29), previous COVID 19 diagnosis presented to the ED right tibial tubercle wound and concern for hardware exposure/open wound, s/p complex revision right total knee replacement/reconstruction 08/30/19 - planning for surgical debridement. +MRSA, on vancomycin 750mg BID, until removal of hardware Prior covid positive, has been negative Date of Admission previously :10/26/19 - DCd 11/09/19 for her right tibial tubercle wound and wound vac. 11/12/19 13:13 11/12/19 13:46 - Physicial Exam PE: 11/12/19 12:50 General: Well appearing, awake and alert, NAD. HEENT: NCAT, PERRL, EOMI, clear conjunctiva, anicteric, moist mucous membranes, clear oropharynx, no oral lesions.. Neck: neck supple, FROM Resp: CTAB, normal and even respirations, no respiratory distress CVS: RRR, no murmurs, 2+ peripheral pulses throughout, no peripheral edema Abdomen: soft, NTND, no rebound or guarding. No CVAT. Back: nontender, normal inspection and ROM] MSK: no edema, VALDES x4, ROM intact. No clubbing or cyanosis. normal bulk and tone. Extremities: no calf tenderness; right tibial tubercle wound with post surgical wound, wound vac in site and tubing present, overlying dressings in place RUE PICC line in place Neuro: alert, oriented appropriately; no focal neurologic deficits Skin: warm and well perfused, cap refill <2 sec, normal color; right tibial tubercle wound with post surgical wound, wound vac in site and tubing present, overlying dressings in place 11/12/19 13:48 - Medical Decision Making 11/12/19 13:10 Vital Signs Temp Pulse Resp BP Pulse Ox 97.9 F 101 H 18 124/69 96 11/12/19 13:04 11/12/19 13:04 11/12/19 13:04 11/12/19 13:04 11/12/19 13:04 vitals reviewed, wnl no fever. mild tachy. no systemic features readmission called in for surgical debridement, management of her right surgical site on R leg, s/p complex revision right total knee replacement/reconstruction 08/30/19 - right tibial tubercle wound currently Vancomycin 1.25g IV daily (divided as 750mg BID) for MRSA infection Patient previously had COVID-19 infection, last testing on 11/08/2019 which was negative pre op labs obtained/ txs, sent off ekg admitting to Dr Van, consult with Dr Pardo, who will manage the dressings and wound vac evaluation and surgical debridement 11/12/19 13:49 Discharge - Discharge Information Problems reviewed: Yes Clinical Impression/Diagnosis: S/P total knee replacement, Surgical wound infection Condition: Fair - Admission Yes - Follow up/Referral - Patient Discharge Instructions - Post Discharge Activity
[2019-11-12 13:54] LABS: BASO % 1.3 % (0-2.0); EOS % 2.5 % (0-4.5); HEMATOCRIT 37.6 % (32.4-45.2); HEMOGLOBIN 12.9 GM/dL (10.7-15.3); LYMPH % 17.6 % (8-40); MCH 32.7 pg (25.7-33.7); MCHC 34.4 g/dl (32.0-36.0); MEAN CELL VOLUME 95.2 fl (80-96); MEAN PLT VOLUME 6.5 fl (7.5-11.1); MONO % 8.5 % (3.8-10.2); NEUT % 70.1 % (42.8-82.8); PLATELET COUNT 349 K/MM3 (134-434); RBC 3.95 M/mm3 (3.60-5.2); RDW 14.6 % (11.6-15.6); WHITE BLOOD COUNT 6.8 K/mm3 (4.0-10.0)
[2019-11-12 14:02] LABS: INR 1.35 (0.83-1.09)
[2019-11-12 14:04] LABS: ACTIVATED PTT 35.8 SECONDS (25.2-36.5)
--- NOTE | 2019-11-12 14:14 | HP ---
CHIEF COMPLAINT: PCP: Dr. Garcia HISTORY OF PRESENT ILLNESS: The patient is a 79 yo f w/ PMH HTN, COPD (no on home 02) recent DVT of right popliteal deonte (on eliquis), recent ortho surgeries (08/21 and 08/29), previous COVID 19 diagnosis presented to the ED right tibial tubercle wound and concern for hardware exposure/open wound, s/p complex revision right total knee replacement/reconstruction 08/30/19. She was brought to the ED from [facility] for further management of her chronic wound. Patient currently has no major complaints. Recent Travel: none PAST MEDICAL HISTORY: see HPI PAST SURGICAL HISTORY: see HPI Social History: denies Allergies Sulfa (Sulfonamide Antibiotics) Allergy (Severe, Verified 08/20/19 11:56) Rash ibuprofen Adverse Reaction (Severe, Verified 08/20/19 11:57) RBC'S DROPPED HOME MEDICATIONS: Home Medications Medication Instructions Recorded Amlodipine Besylate 10 mg PO DAILY 08/20/19 Ascorbic Acid [Vitamin C] 1,000 mg PO DAILY 08/20/19 Omeprazole 20 mg PO DAILY 08/20/19 Apixaban [Eliquis -] 5 mg PO BID tablet 09/03/19 Bethanechol Chloride [Bethanechol 50 mg PO TID tablet 09/03/19 Chloride -] Ferrous Sulfate [Feosol] 325 mg PO BID ud 09/03/19 Sennosides/Docusate Sodium 2 tablet PO BID tablet 09/03/19 [Pericolace -] Albuterol Sulfate Inhaler - 2 puff IH Q4H PRN inhaler 11/09/19 [Ventolin HFA Inhaler -] Amlodipine Besylate [Norvasc -] 5 mg PO DAILY tablet 11/09/19 Clotrimazole/Betamet Diprop 1 applic TP BID tube 11/09/19 [Lotrisone -] Collagenase Clostridium Hist. 1 applic TP DAILY tube 11/09/19 [Santyl -] Metoclopramide HCl [Reglan -] 10 mg PO TIDAC tablet 11/09/19 Nystatin Cream [Mycostatin Cream -] 1 applic TP BID applic 11/09/19 Oxycodone HCl/Acetaminophen 1 tab PO Q6H #10 tablet MDD 4 11/09/19 [Percocet 5-325 mg Tablet] Vancomycin/0.9 % Sod Chloride 750 mg IV BID 30 Days plast..bag 11/09/19 [Vanco 750 mg/250 ml-0.9% NaCl] Zinc Sulfate [Orazinc -] 220 mg PO DAILY@0800 14 Days 11/09/19 capsule REVIEW OF SYSTEMS negative except for HPI PHYSICAL EXAMINATION Vital Signs - 24 hr 11/12/19 13:04 Temperature 97.9 F Pulse Rate 101 H Respiratory 18 Rate Blood Pressure 124/69 O2 Sat by Pulse 96 Oximetry (%) GENERAL: Awake, alert, and fully oriented, in no acute distress. NECK: Normal range of motion, supple without lymphadenopathy, JVD, or masses. LUNGS: Breath sounds equal, clear to auscultation bilaterally. No wheezes, and no crackles. No accessory muscle use. HEART: Regular rate and rhythm, normal S1 and S2 without murmur, rub or gallop. ABDOMEN: Soft, nontender, not distended, normoactive bowel sounds, no guarding, no rebound, no masses. LOWER EXTREMITIES: 2+ pulses, warm, well-perfused. No calf tenderness. No peripheral edema. NEUROLOGICAL: Cranial nerves II-X intact. Normal speech. Laboratory Results - last 24 hr 11/12/19 11/12/19 13:41 13:41 WBC 6.8 RBC 3.95 Hgb 12.9 Hct 37.6 D MCV 95.2 MCH 32.7 MCHC 34.4 RDW 14.6 Plt Count 349 D MPV 6.5 L Absolute Neuts (auto) 4.8 Neutrophils % 70.1 D Lymphocytes % 17.6 D Monocytes % 8.5 Eosinophils % 2.5 Basophils % 1.3 Nucleated RBC % 0 PT with INR 16.00 H INR 1.35 H PTT (Actin FS) 35.8 ASSESSMENT/PLAN: The patient is a 79 yo f w/ PMH HTN, COPD, DVT, multiple orthopedic surgeries and subsequent debridements who was brought into the ED at the instruction of her orthopedic surgeon for management of her chronic leg wound. #Chronic RLE wound -followed by Dr. Barron Pardo -RLE dressing clean, dry and intact; left in place at the instruction of Dr. Pardo. -patient w/ minimal pain at this time -Dr. Pardo to debride patient's leg this evening -patient's wound vac not in place on arrival, reached out to surgical PA's to place vac; PAs aware -Per Dr. Mcclure, patient will need to be on preschool teacher aide vancomycin while hardware in place. Will continue patient's 750mg BID infusion -will obtain vanc level prior to this evening's dose to confirm theraputic levels #DVT -on eliquis at SNF; will continue #HTN -brittani continue with home medications #COPD -will continue with home medications #FEN -no fluids indicated -lytes WNL, will replete PRN -Sodium controlled diet #Dispo -admit med surg. Visit type - Emergency Visit Emergency Visit: Yes ED Registration Date: 11/12/19 Care time: The patient presented to the Emergency Department on the above date and was hospitalized for further evaluation of their emergent condition. - New Patient This patient is new to me today: Yes Date on this admission: 11/12/19 - Critical Care Critical Care patient: No ATTENDING PHYSICIAN STATEMENT I saw and evaluated the patient. I reviewed the resident's note and discussed the case with the resident. I agree with the resident's findings and plan as documented. SUBJECTIVE: OBJECTIVE: ASSESSMENT AND PLAN:
--- NOTE | 2019-11-12 14:16 | PN ---
Teaching Attending Note Name of Resident: Martin Tariq ATTENDING PHYSICIAN STATEMENT I saw and evaluated the patient. I reviewed the resident's note and discussed the case with the resident. I agree with the resident's findings and plan as documented. SUBJECTIVE: This is an 79 year old woman with a history of HTN, COPD, RLE DVT, RLE wound overlying tibial tubercle with exposed patellar ligament and hardware currently being managed with wound VAC and vancomycin IV who comes to the ED from [facility] for debridement and further wound care. OBJECTIVE: Vital Signs Period Temp Pulse Resp BP Sys/Hardy Pulse Ox Last 24 Hr 97.9 F 101 18 124/69 96 HEART: S1S2, RRR LUNGS: Clear ABDOMEN: Soft, non-tender, non-distended, normal BS EXTREMITIES: Laboratory Tests 11/12/19 11/12/19 13:41 13:41 WBC 6.8 RBC 3.95 Hgb 12.9 Hct 37.6 D MCV 95.2 MCH 32.7 MCHC 34.4 RDW 14.6 Plt Count 349 D MPV 6.5 L Absolute Neuts (auto) 4.8 Neutrophils % 70.1 D Lymphocytes % 17.6 D Monocytes % 8.5 Eosinophils % 2.5 Basophils % 1.3 Nucleated RBC % 0 PT with INR 16.00 H INR 1.35 H PTT (Actin FS) 35.8 Home Medications Medication Instructions Recorded Amlodipine Besylate 10 mg PO DAILY 08/20/19 Ascorbic Acid [Vitamin C] 1,000 mg PO DAILY 08/20/19 Omeprazole 20 mg PO DAILY 08/20/19 Apixaban [Eliquis -] 5 mg PO BID tablet 09/03/19 Bethanechol Chloride [Bethanechol 50 mg PO TID tablet 09/03/19 Chloride -] Ferrous Sulfate [Feosol] 325 mg PO BID ud 09/03/19 Sennosides/Docusate Sodium 2 tablet PO BID tablet 09/03/19 [Pericolace -] Albuterol Sulfate Inhaler - 2 puff IH Q4H PRN inhaler 11/09/19 [Ventolin HFA Inhaler -] Amlodipine Besylate [Norvasc -] 5 mg PO DAILY tablet 11/09/19 Clotrimazole/Betamet Diprop 1 applic TP BID tube 11/09/19 [Lotrisone -] Collagenase Clostridium Hist. 1 applic TP DAILY tube 11/09/19 [Santyl -] Metoclopramide HCl [Reglan -] 10 mg PO TIDAC tablet 11/09/19 Nystatin Cream [Mycostatin Cream -] 1 applic TP BID applic 11/09/19 Oxycodone HCl/Acetaminophen 1 tab PO Q6H #10 tablet MDD 4 11/09/19 [Percocet 5-325 mg Tablet] Vancomycin/0.9 % Sod Chloride 750 mg IV BID 30 Days plast..bag 11/09/19 [Vanco 750 mg/250 ml-0.9% NaCl] Zinc Sulfate [Orazinc -] 220 mg PO DAILY@0800 14 Days 11/09/19 capsule ASSESSMENT AND PLAN:
[2019-11-12 14:28] LABS: BILIRUBIN,TOTAL 0.8 mg/dL (0.2-1)
[2019-11-12 14:30] LABS: ALBUMIN 2.6 g/dl (3.4-5.0); BLOOD UREA NITROGEN 8.4 mg/dL (7-18); CALCIUM 10.3 mg/dL (8.5-10.1); CREATININE 0.5 mg/dL (0.55-1.3); TOT PROT 5.5 g/dl (6.4-8.2)
[2019-11-12] MEDS ORDERED: ALBUTEROL SO4 HFA INHALER IH PRN (16:51)
[2019-11-12] MEDS: ACETAMINOPHEN 325 MG TABLET (FP) PO SCH ×2 (21:55→22:02)
[2019-11-12] MEDS: ATORVASTATIN CA 10 MG TABLET (FP) PO SCH (22:04)
[2019-11-12] MEDS: APIXABAN 5 MG TABLET PO SCH (22:04)
[2019-11-13] MEDS ORDERED: PT OWN MED DRAWER 7, Y5N ONE (00:30)
[2019-11-13] MEDS: ACETAMINOPHEN 325 MG TABLET (FP) PO SCH ×5 (01:16→23:20)
[2019-11-13] MEDS: CLOTRIMAZOLE/BETAMET DIPROP 15 GM TUBE TP SCH ×3 (01:26→21:44)
[2019-11-13] MEDS: VANCOMYCIN 750 MG in DEXTROSE 5%-WATER - 250 ML IVPB SCH ×3 (01:26→21:42)
[2019-11-13] MEDS: METOCLOPRAMIDE HCL 10 MG TABLET (FP) PO SCH ×3 (06:07→17:28)
--- NOTE | 2019-11-13 08:25 | PN ---
Progress Note (short form) - Note Progress Note: Pt. wrongfully discharged to rehab on Tuesday11/09/2019. Rehab did not have wound vac machine ready, so patient was off vac-therapy since Tuesday11/09/2019. Wound Management Plan: Continue serial Wound Vac changes to facilitate granulation tissue formation over the wound, and ultimately stage the wound to skin grafting. We are succeeding with this plan so far, but the process may take 2-3 weeks. At present, granulation tissue is forming over the wound soft tissue bed. If at any stage, we are unable to stimulate adequate granulation tissue formation, or if we lose control of the wound and it starts to deteriorate, we will consider operative soft tissue reconstruction utilizing a medial gastrocnemius muscle flap to cover the wound site. This would be performed in conjunction with a plastic reconstructive surgeon. At this stage, this is unnecessary, since we are succeeding with Wound Vac therapy induced granulation tissue proliferation. While there is a screw head exposed, the wound is clean-contaminated: IE there is no gross infection, but the wound is likely contaminated with typical superficial microbes. The screw is sealed to the surface of bone that it has fixed (the tibial tubercle). Since there is no purulence, pus, exudate, or drainage, there is low concern for infection at the wound site and therefore low concern for infection tracking deep along the shaft of the screw. The joint, nahomi-articular tissues, and limb clinically appear free of infection. Removal of the screw would significantly compromise the health of the patient's limb, as this would open a direct tract from the outside environment and wound surface deep into the patient's bone bed, and into the environment where extensive hardware dwells. This would almost certainly result in seeding of the limb reconstruction hardware, which could potentially lead to an above-knee amputation. So we will continue to stimulate granulation tissue formation to cover the wound. Systemic antibiotics will help prevent wound-site contamination from becoming a wound infection. Once the wound is covered with granulation tissue, we will stage it to definitive coverage with a skin graft. This plan has been discussed with and agreed upon by a senior adult reconstructive orthopaedic surgeon and an adult plastic reconstructive surgeon each with experience in dealing with situations such as this. 79F s/p complex revision right total knee replacement/reconstruction 08/30/19 now p/w soft tissue breakdown and wound overlying right tibial tubercle. Pain well controlled. No acute events overnight. Pt. denies overnight history of headaches, chest pain, shortness of breath, nausea, vomiting, chills, & sweats. (+) Voiding; (+) Flatus; (+) BM. Pt. ambulated in room w/PT team; has not spent time OOBTC; has not had much passive ROM R knee nor R ankle. All labs and vitals reviewed. PE: AAO x 3, NAD. R Knee: Wound Vac dressing removed. Wound overlying tibial tubercle 4cm (L) x 2.5cm (W) x 0.25cm deep as measured with ruler. No concerning signs of wound infection: no purulence, exudate, pus, malodor, drainage, or erythema. (+) Granulation tissue formation since last dressing change. Wound & nahomi-wound skin cleansed with betadine soap. Fibrinous slough debrided to healthy bleeding tissue. (+) Patellar ligament partially exposed. Tibial tubercle screw exposed but granulation tissue forming over screw head. No erythema involving skin margins or surrounding soft tissue. No nahomi-wound nor nahomi-articular signs of infection or inflammation. Wound vac re-applied. RLE M: HF/KF/KE/ADF 10/15; ADF/GTE 06/17 (I.E. foot drop). RLE S: Femoral, Saphenous, Lateral Sural, Tibial Nerves 2/2; Superficial Peroneal Nerve 1/2; Deep Peroneal Nerve 0/2. A/P: 79F s/p complex revision right total knee replacement/reconstruction 08/30/19 now p/w soft tissue breakdown and wound overlying right tibial tubercle. -Pt. to remain in house for wound care. -Vac changes +/- bedside debridements q48-72 hours by surgical team only. -Pain control. -DVT PPx: -Chemical: Eliquis. -Mechanical: LLE SORAYA's, SCD's. -Incentive spirometry. -PT/OT/Rehab, OOBTC at least twice daily. -Strict TTWB RLE. -Offload B/L heels w/rolled towels under ankles to minimize risk of heel ulcer formation. -RLE AFO splint at all times; will order offloading R AFO splint to minimize heel ulcer formation risk. -Continue antibiotics. -Care as per ID & primary medical teams. -Will follow. Barron Pardo MD (Orthopaedic Surgery).
[2019-11-13 08:42] LABS: HEMATOCRIT 33.2 % (32.4-45.2); HEMOGLOBIN 11.4 GM/dL (10.7-15.3); MCH 32.5 pg (25.7-33.7); MCHC 34.3 g/dl (32.0-36.0); MEAN CELL VOLUME 94.8 fl (80-96); MEAN PLT VOLUME 6.6 fl (7.5-11.1); PLATELET COUNT 296 K/MM3 (134-434); RDW 14.7 % (11.6-15.6); WHITE BLOOD COUNT 4.8 K/mm3 (4.0-10.0)
[2019-11-13] MEDS: ZINC SULFATE 220 MG CAPSULE (FP) PO SCH (09:00)
[2019-11-13 09:14] LABS: BLOOD UREA NITROGEN 9.4 mg/dL (7-18); CALCIUM 9.7 mg/dL (8.5-10.1); CREATININE 0.6 mg/dL (0.55-1.3)
[2019-11-13] MEDS: APIXABAN 5 MG TABLET PO SCH ×2 (10:28→21:43)
--- NOTE | 2019-11-13 13:10 | EKG ---
Test Reason : Blood Pressure : / mmHG Vent. 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
--- NOTE | 2019-11-13 14:48 | PN ---
Teaching Attending Note Name of Resident: Martin Tariq ATTENDING PHYSICIAN STATEMENT I saw and evaluated the patient. I reviewed the resident's note and discussed the case with the resident. I agree with the resident's findings and plan as documented. SUBJECTIVE: Patient seen and examined at bedside, re-admitted for management of R knee wound vac and wound care. Clinically stable, denies complaints. VSS. OBJECTIVE: GENERAL: A&Ox3, no acute distress EYES: PERRLA, EOMI LUNGS: CTA, no wheezes HEART: RRR, no murmurs ABDOMEN: Soft, nontender, BS present EXTREMITIES: 2+ pulses, no edema. R sided wound noted on anterior tibia with wound vac placed NEUROLOGICAL: Cranial nerves II-XII intact. Vital Signs - 24 hr 11/12/19 11/12/19 11/12/19 15:50 18:08 18:12 Temperature 98.1 F 98.1 F Pulse Rate 92 H Pulse Rate [ 93 H Right] Respiratory 18 18 Rate Blood Pressure 143/73 Blood Pressure 118/65 [Left Arm] O2 Sat by Pulse 100 98 Oximetry (%) 11/12/19 11/12/19 11/12/19 18:23 21:00 22:00 Temperature 98.1 F 98.1 F Pulse Rate 92 H 100 H Pulse Rate [ Right] Respiratory 18 18 Rate Blood Pressure 143/73 124/85 Blood Pressure [Left Arm] O2 Sat by Pulse 95 Oximetry (%) 11/13/19 06:00 Temperature 98.4 F Pulse Rate 80 Pulse Rate [ Right] Respiratory 18 Rate Blood Pressure 132/69 Blood Pressure [Left Arm] O2 Sat by Pulse Oximetry (%) Laboratory Results - last 24 hr 11/12/19 11/13/19 11/13/19 21:15 07:55 07:55 WBC 4.8 RBC 3.50 L Hgb 11.4 Hct 33.2 MCV 94.8 MCH 32.5 MCHC 34.3 RDW 14.7 Plt Count 296 MPV 6.6 L Sodium 136 Potassium 4.0 Chloride 103 Carbon Dioxide 28 Anion Gap 6 L BUN 9.4 Creatinine 0.6 Est GFR (CKD-EPI)AfAm 99.07 Est GFR (CKD-EPI)NonAf 85.48 Random Glucose 93 Calcium 9.7 Random Vancomycin 15.0 Home Medications Medication Instructions Recorded Ascorbic Acid [Vitamin C] 1,000 mg PO DAILY 08/20/19 Apixaban [Eliquis -] 5 mg PO BID tablet 09/03/19 Albuterol Sulfate Inhaler - 2 puff IH Q4H PRN inhaler 11/09/19 [Ventolin HFA Inhaler -] Clotrimazole/Betamet Diprop 1 applic TP BID tube 11/09/19 [Lotrisone -] Metoclopramide HCl [Reglan -] 10 mg PO TIDAC tablet 11/09/19 Vancomycin/0.9 % Sod Chloride 750 mg IV BID 30 Days plast..bag 11/09/19 [Vanco 750 mg/250 ml-0.9% NaCl] Zinc Sulfate [Orazinc -] 220 mg PO DAILY@0800 14 Days 11/09/19 capsule Acetaminophen 650 mg PO Q6H 11/12/19 Amino Acids/Protein Hydrolys 30 ml PO BID 11/12/19 [Pro-Stat Awc Liquid Packet] Atorvastatin Calcium 10 mg PO HS 11/12/19 Ergocalciferol [Vitamin D2] 50,000 unit PO MONTHLY 11/12/19 Lanolin/Mineral Oil [Eucerin 250 ml TP BID PRN 11/12/19 Original Lotion] Melatonin 3 mg PO HS PRN 11/12/19 Current Medications Generic Name Dose Route Start Last Admin Trade Name Freq PRN Reason Stop Dose Admin Acetaminophen 650 mg 11/12/19 18:00 11/13/19 12:18 Tylenol - PO 650 mg Q6HPO TARA Administration Albuterol Sulfate 2 puff 11/12/19 16:51 Ventolin Hfa Inhaler - IH Q4H PRN SHORT OF BREATH/WHEEZING Apixaban 5 mg 11/12/19 22:00 11/13/19 10:28 Eliquis - PO 5 mg BID TARA Administration Atorvastatin Calcium 10 mg 11/12/19 22:00 11/12/19 22:04 Lipitor - PO 10 mg HS TARA Administration Clotrimazole 1 applic 11/12/19 22:00 11/13/19 10:28 Lotrisone Cream (Small Tube) TP 1 applic BID TARA Administration Vancomycin HCl 750 mg/ 250 mls @ 250 mls/hr 11/12/19 22:00 11/13/19 10:29 Dextrose IVPB 250 mls/hr BID TARA Administration Melatonin 3 mg 11/12/19 16:51 Melatonin PO HS PRN INSOMNIA Metoclopramide HCl 10 mg 11/13/19 07:00 11/13/19 12:19 Reglan - PO 10 mg TIDAC TARA Administration Zinc Sulfate 220 mg 11/13/19 08:00 11/13/19 09:00 Orazinc - PO 220 mg DAILY@0800 TARA Administration ASSESSMENT AND PLAN: 79 F R knee debridement/culture with MRSA s/p wound vac HTN HLD Neurogenic bladder COPD (no on home ) recent DVT of right popliteal vein on Eliquis recent ortho surgeries (08/21 and 08/29) COVID positive Chronic constipation TOYIN Insomnia Plan: R knee culture growing MRSA, cont. Vancomycin, monitor trough levels and adjust as needed Cont. BP meds as tolerated COVID neg. x1, repeat pending ID following Surgery following ( Dr Pardo ), will need to discuss degree of wound care and dispo with surgery team Cont. AC for DVT
[2019-11-13] MEDS: ATORVASTATIN CA 10 MG TABLET (FP) PO SCH (21:42)
--- NOTE | 2019-11-13 23:54 | PN ---
Physical Exam: SUBJECTIVE: Patient seen and examined at bedside. No new complaints. s/p bedside debridement by Dr. Pardo OBJECTIVE: Vital Signs Period Temp Pulse Resp BP Sys/Hardy Pulse Ox Last 24 Hr 97.8 F-98.4 F 80-97 18-20 111-133/60-69 95-95 GENERAL: The patient is awake, alert, and fully oriented, in no acute distress. NECK: Trachea midline, full range of motion, supple. LUNGS: Breath sounds equal, clear to auscultation bilaterally, no wheezes, no crackles, no accessory muscle use. HEART: Regular rate and rhythm, S1, S2 without murmur, rub or gallop. ABDOMEN: Soft, nontender, nondistended, normoactive bowel sounds, no guarding, no rebound. EXTREMITIES: 2+ pulses, warm, well-perfused, no edema. NEUROLOGICAL: Cranial nerves II through X grossly intact. Normal speech, gait not observed. Laboratory Results - last 24 hr 11/13/19 11/13/19 07:55 07:55 WBC 4.8 RBC 3.50 L Hgb 11.4 Hct 33.2 MCV 94.8 MCH 32.5 MCHC 34.3 RDW 14.7 Plt Count 296 MPV 6.6 L Sodium 136 Potassium 4.0 Chloride 103 Carbon Dioxide 28 Anion Gap 6 L BUN 9.4 Creatinine 0.6 Est GFR (CKD-EPI)AfAm 99.07 Est GFR (CKD-EPI)NonAf 85.48 Random Glucose 93 Calcium 9.7 Active Medications Generic Name Dose Route Start Last Admin Trade Name Freq PRN Reason Stop Dose Admin Acetaminophen 650 mg 11/12/19 18:00 11/13/19 17:29 Tylenol - PO 650 mg Q6HPO TARA Administration Albuterol Sulfate 2 puff 11/12/19 16:51 Ventolin Hfa Inhaler - IH Q4H PRN SHORT OF BREATH/WHEEZING Apixaban 5 mg 11/12/19 22:00 11/13/19 21:43 Eliquis - PO 5 mg BID TARA Administration Atorvastatin Calcium 10 mg 11/12/19 22:00 11/13/19 21:42 Lipitor - PO 10 mg HS TARA Administration Clotrimazole 1 applic 11/12/19 22:00 11/13/19 21:44 Lotrisone Cream (Small Tube) TP 1 applic BID TARA Administration Vancomycin HCl 750 mg/ 250 mls @ 250 mls/hr 11/12/19 22:00 11/13/19 21:42 Dextrose IVPB 250 mls/hr BID TARA Administration Melatonin 3 mg 11/12/19 16:51 Melatonin PO HS PRN INSOMNIA Metoclopramide HCl 10 mg 11/13/19 07:00 11/13/19 17:28 Reglan - PO 10 mg TIDAC TARA Administration Zinc Sulfate 220 mg 11/13/19 08:00 11/13/19 09:00 Orazinc - PO 220 mg DAILY@0800 TARA Administration ASSESSMENT/PLAN: The patient is a 79 yo f w/ PMH HTN, COPD, DVT, multiple orthopedic surgeries and subsequent debridements who was brought into the ED at the instruction of her orthopedic surgeon for management of her chronic leg wound. #Chronic RLE wound -followed by Dr. Barron Pardo -RLE dressing clean, dry and intact; left in place at the instruction of Dr. Pardo. -patient w/ minimal pain at this time -serial debridements and wound care per Dr. Pardo -Vanc level theraputic. will continue w/ 750mg BID dosing. d/w Dr. Mcclure. #DVT -on eliquis at SNF; will continue #HTN -will continue with home medications #COPD -will continue with home medications #FEN -no fluids indicated -lytes WNL, will replete PRN -Sodium controlled diet #Prophy -on eliquis #Dispo -admit med surg. Visit type - Emergency Visit Emergency Visit: Yes ED Registration Date: 11/12/19 Care time: The patient presented to the Emergency Department on the above date and was hospitalized for further evaluation of their emergent condition. - New Patient This patient is new to me today: No - Critical Care Critical Care patient: No - Discharge Referral Referred to [facility] No ATTENDING PHYSICIAN STATEMENT I saw and evaluated the patient. I reviewed the resident's note and discussed the case with the resident. I agree with the resident's findings and plan as documented. SUBJECTIVE: OBJECTIVE: ASSESSMENT AND PLAN:
[2019-11-14] MEDS: METOCLOPRAMIDE HCL 10 MG TABLET (FP) PO SCH ×3 (06:10→16:25)
[2019-11-14] MEDS: ACETAMINOPHEN 325 MG TABLET (FP) PO SCH ×4 (06:10→23:35)
[2019-11-14 07:50] LABS: HEMATOCRIT 33.3 % (32.4-45.2); HEMOGLOBIN 11.5 GM/dL (10.7-15.3); MCH 32.9 pg (25.7-33.7); MCHC 34.5 g/dl (32.0-36.0); MEAN CELL VOLUME 95.3 fl (80-96); MEAN PLT VOLUME 6.9 fl (7.5-11.1); PLATELET COUNT 277 K/MM3 (134-434); RBC 3.49 M/mm3 (3.60-5.2); RDW 14.5 % (11.6-15.6); WHITE BLOOD COUNT 5.5 K/mm3 (4.0-10.0)
[2019-11-14 08:10] LABS: CALCIUM 9.9 mg/dL (8.5-10.1); CREATININE 0.5 mg/dL (0.55-1.3); POTASSIUM 4.1 mmol/L (3.5-5.1)
[2019-11-14] MEDS: APIXABAN 5 MG TABLET PO SCH ×2 (09:30→21:09)
[2019-11-14] MEDS: ZINC SULFATE 220 MG CAPSULE (FP) PO SCH (09:30)
[2019-11-14] MEDS: CLOTRIMAZOLE/BETAMET DIPROP 15 GM TUBE TP SCH ×2 (09:43→21:16)
[2019-11-14] MEDS: VANCOMYCIN 750 MG in DEXTROSE 5%-WATER - 250 ML IVPB SCH ×2 (10:21→21:09)
--- NOTE | 2019-11-14 13:30 | PN ---
Physical Exam: SUBJECTIVE: Patient seen and examined. Offers no complaints. No events overnight. OBJECTIVE: Vital Signs Period Temp Pulse Resp BP Sys/Hardy Pulse Ox Last 24 Hr 97.6 F-98.2 F 79-90 18-20 111-147/60-77 95 GENERAL: The patient is awake, alert, and fully oriented, in no acute distress. NECK: Trachea midline, full range of motion, supple. LUNGS: Breath sounds equal, clear to auscultation bilaterally, no wheezes, no crackles, no accessory muscle use. HEART: Regular rate and rhythm, S1, S2 without murmur, rub or gallop. ABDOMEN: Soft, nontender, nondistended, normoactive bowel sounds, no guarding, no rebound. EXTREMITIES: 2+ pulses, warm, well-perfused, no edema. NEUROLOGICAL: Cranial nerves II through X grossly intact. Normal speech, gait not observed. Laboratory Results - last 24 hr 11/12/19 11/14/19 11/14/19 14:44 06:25 06:25 WBC 5.5 RBC 3.49 L Hgb 11.5 Hct 33.3 MCV 95.3 MCH 32.9 MCHC 34.5 RDW 14.5 Plt Count 277 MPV 6.9 L Sodium 135 L Potassium 4.1 Chloride 102 Carbon Dioxide 27 Anion Gap 5 L BUN 8.0 Creatinine 0.5 L Est GFR (CKD-EPI)AfAm 105.20 Est GFR (CKD-EPI)NonAf 90.77 Random Glucose 93 Calcium 9.9 COVID-19 (HANNY) Not detected Active Medications Generic Name Dose Route Start Last Admin Trade Name Freq PRN Reason Stop Dose Admin Acetaminophen 650 mg 11/12/19 18:00 11/14/19 11:13 Tylenol - PO 650 mg Q6HPO TARA Administration Albuterol Sulfate 2 puff 11/12/19 16:51 Ventolin Hfa Inhaler - IH Q4H PRN SHORT OF BREATH/WHEEZING Apixaban 5 mg 11/12/19 22:00 11/14/19 09:30 Eliquis - PO 5 mg BID TARA Administration Atorvastatin Calcium 10 mg 11/12/19 22:00 11/13/19 21:42 Lipitor - PO 10 mg HS TARA Administration Clotrimazole 1 applic 11/12/19 22:00 11/14/19 09:43 Lotrisone Cream (Small Tube) TP 1 applic BID TARA Administration Vancomycin HCl 750 mg/ 250 mls @ 250 mls/hr 11/12/19 22:00 11/14/19 10:21 Dextrose IVPB 250 mls/hr BID TARA Administration Melatonin 3 mg 11/12/19 16:51 Melatonin PO HS PRN INSOMNIA Metoclopramide HCl 10 mg 11/13/19 07:00 11/14/19 11:13 Reglan - PO 10 mg TIDAC TARA Administration Zinc Sulfate 220 mg 11/13/19 08:00 11/14/19 09:30 Orazinc - PO 220 mg DAILY@0800 TARA Administration ASSESSMENT/PLAN: The patient is a 79 yo f w/ PMH HTN, COPD, DVT, multiple orthopedic surgeries and subsequent debridements who was brought into the ED at the instruction of her orthopedic surgeon for management of her chronic leg wound. #Chronic RLE wound -followed by Dr. Barron Pardo -RLE dressing clean, dry and intact; left in place at the instruction of Dr. Pardo. -patient w/ minimal pain at this time -serial debridements and wound care per Dr. Pardo -Vanc level theraputic. will continue w/ 750mg BID dosing. d/w Dr. Mcclure. #DVT -on eliquis at SNF; will continue #HTN -will continue with home medications #COPD -will continue with home medications #FEN -no fluids indicated -lytes WNL, will replete PRN -Sodium controlled diet #Prophy -on eliquis #Dispo -admit med surg. Visit type - Emergency Visit Emergency Visit: Yes ED Registration Date: 11/12/19 Care time: The patient presented to the Emergency Department on the above date and was hospitalized for further evaluation of their emergent condition. - New Patient This patient is new to me today: No - Critical Care Critical Care patient: No ATTENDING PHYSICIAN STATEMENT I saw and evaluated the patient. I reviewed the resident's note and discussed the case with the resident. I agree with the resident's findings and plan as documented. SUBJECTIVE: OBJECTIVE: ASSESSMENT AND PLAN:
--- NOTE | 2019-11-14 19:04 | PN ---
Teaching Attending Note Name of Resident: Hayes Meza ATTENDING PHYSICIAN STATEMENT I saw and evaluated the patient. I reviewed the resident's note and discussed the case with the resident. I agree with the resident's findings and plan as documented. SUBJECTIVE: Patient seen and examined at bedside, re-admitted for management of R knee wound vac and wound care. Clinically stable, denies complaints. VSS. OBJECTIVE: GENERAL: A&Ox3, no acute distress EYES: PERRLA, EOMI LUNGS: CTA, no wheezes HEART: RRR, no murmurs ABDOMEN: Soft, nontender, BS present EXTREMITIES: 2+ pulses, no edema. R sided wound noted on anterior tibia with wound vac placed NEUROLOGICAL: Cranial nerves II-XII intact. Vital Signs - 24 hr 11/13/19 11/13/19 11/14/19 21:00 23:00 05:00 Temperature 97.6 F 98.2 F Pulse Rate 84 79 Respiratory 18 18 Rate Blood Pressure 136/71 118/64 O2 Sat by Pulse 95 Oximetry (%) 11/14/19 11/14/19 11/14/19 08:15 14:00 16:40 Temperature 97.9 F 98.2 F 97.6 F Pulse Rate 90 100 H 97 H Respiratory 20 20 20 Rate Blood Pressure 147/77 111/55 L 137/81 O2 Sat by Pulse Oximetry (%) Laboratory Results - last 24 hr 11/12/19 11/14/19 11/14/19 14:44 06:25 06:25 WBC 5.5 RBC 3.49 L Hgb 11.5 Hct 33.3 MCV 95.3 MCH 32.9 MCHC 34.5 RDW 14.5 Plt Count 277 MPV 6.9 L Sodium 135 L Potassium 4.1 Chloride 102 Carbon Dioxide 27 Anion Gap 5 L BUN 8.0 Creatinine 0.5 L Est GFR (CKD-EPI)AfAm 105.20 Est GFR (CKD-EPI)NonAf 90.77 Random Glucose 93 Calcium 9.9 COVID-19 (HANNY) Not detected Home Medications Medication Instructions Recorded Ascorbic Acid [Vitamin C] 1,000 mg PO DAILY 08/20/19 Apixaban [Eliquis -] 5 mg PO BID tablet 09/03/19 Albuterol Sulfate Inhaler - 2 puff IH Q4H PRN inhaler 11/09/19 [Ventolin HFA Inhaler -] Clotrimazole/Betamet Diprop 1 applic TP BID tube 11/09/19 [Lotrisone -] Metoclopramide HCl [Reglan -] 10 mg PO TIDAC tablet 11/09/19 Vancomycin/0.9 % Sod Chloride 750 mg IV BID 30 Days plast..bag 11/09/19 [Vanco 750 mg/250 ml-0.9% NaCl] Zinc Sulfate [Orazinc -] 220 mg PO DAILY@0800 14 Days 11/09/19 capsule Acetaminophen 650 mg PO Q6H 11/12/19 Amino Acids/Protein Hydrolys 30 ml PO BID 11/12/19 [Pro-Stat Awc Liquid Packet] Atorvastatin Calcium 10 mg PO HS 11/12/19 Ergocalciferol [Vitamin D2] 50,000 unit PO MONTHLY 11/12/19 Lanolin/Mineral Oil [Eucerin 250 ml TP BID PRN 11/12/19 Original Lotion] Melatonin 3 mg PO HS PRN 11/12/19 Current Medications Generic Name Dose Route Start Last Admin Trade Name [facility] PRN Reason Stop Dose Admin Acetaminophen 650 mg 11/12/19 18:00 11/14/19 17:53 Tylenol - PO 650 mg Q6HPO TARA Administration Albuterol Sulfate 2 puff 11/12/19 16:51 Ventolin Hfa Inhaler - IH Q4H PRN SHORT OF BREATH/WHEEZING Apixaban 5 mg 11/12/19 22:00 11/14/19 09:30 Eliquis - PO 5 mg BID TARA Administration Atorvastatin Calcium 10 mg 11/12/19 22:00 11/13/19 21:42 Lipitor - PO 10 mg HS TARA Administration Clotrimazole 1 applic 11/12/19 22:00 11/14/19 09:43 Lotrisone Cream (Small Tube) TP 1 applic BID TARA Administration Vancomycin HCl 750 mg/ 250 mls @ 250 mls/hr 11/12/19 22:00 11/14/19 10:21 Dextrose IVPB 250 mls/hr BID TARA Administration Melatonin 3 mg 11/12/19 16:51 Melatonin PO HS PRN INSOMNIA Metoclopramide HCl 10 mg 11/13/19 07:00 11/14/19 16:25 Reglan - PO 10 mg TIDAC TARA Administration Zinc Sulfate 220 mg 11/13/19 08:00 11/14/19 09:30 Orazinc - PO 220 mg DAILY@0800 TARA Administration ASSESSMENT AND PLAN: 79 F R knee debridement/culture with MRSA s/p wound vac HTN HLD Neurogenic bladder COPD (no on home ) recent DVT of right popliteal vein on Eliquis recent ortho surgeries (08/21 and 08/29) COVID positive Chronic constipation TOYIN Insomnia Plan: R knee culture growing MRSA, cont. Vancomycin, monitor trough levels and adjust as needed Cont. BP meds as tolerated COVID neg. x1, repeat pending ID following Surgery following ( Dr Pardo ), will need to discuss degree of wound care and dispo with surgery team Cont. AC for DVT
[2019-11-14] MEDS: ATORVASTATIN CA 10 MG TABLET (FP) PO SCH (21:09)
[2019-11-15] MEDS: ACETAMINOPHEN 325 MG TABLET (FP) PO SCH ×3 (05:40→17:08)
[2019-11-15] MEDS: METOCLOPRAMIDE HCL 10 MG TABLET (FP) PO SCH ×3 (06:10→16:21)
[2019-11-15 07:46] LABS: BASO % 1.2 % (0-2.0); EOS % 2.1 % (0-4.5); HEMATOCRIT 33.3 % (32.4-45.2); HEMOGLOBIN 11.4 GM/dL (10.7-15.3); LYMPH % 22.2 % (8-40); MCH 32.5 pg (25.7-33.7); MCHC 34.1 g/dl (32.0-36.0); MEAN CELL VOLUME 95.4 fl (80-96); MEAN PLT VOLUME 7.1 fl (7.5-11.1); MONO % 8.7 % (3.8-10.2); NEUT % 65.8 % (42.8-82.8); PLATELET COUNT 309 K/MM3 (134-434); RBC 3.49 M/mm3 (3.60-5.2); RDW 14.7 % (11.6-15.6); WHITE BLOOD COUNT 4.4 K/mm3 (4.0-10.0)
[2019-11-15] MEDS: ZINC SULFATE 220 MG CAPSULE (FP) PO SCH (08:02)
[2019-11-15 08:10] LABS: ALBUMIN 2.5 g/dl (3.4-5.0); BILIRUBIN,TOTAL 0.6 mg/dL (0.2-1); BLOOD UREA NITROGEN 9.6 mg/dL (7-18); CREATININE 0.6 mg/dL (0.55-1.3); POTASSIUM 4.3 mmol/L (3.5-5.1); TOT PROT 5.2 g/dl (6.4-8.2)
[2019-11-15] MEDS ORDERED: PT OWN MED DRAWER 7, Y5N ONE ×2 (09:57→21:26)
[2019-11-15] MEDS: APIXABAN 5 MG TABLET PO SCH ×2 (10:02→21:48)
[2019-11-15] MEDS: VANCOMYCIN 750 MG in DEXTROSE 5%-WATER - 250 ML IVPB SCH ×2 (10:03→21:49)
[2019-11-15] MEDS: CLOTRIMAZOLE/BETAMET DIPROP 15 GM TUBE TP SCH ×2 (10:05→21:48)
[2019-11-15] MEDS: MELATONIN 1 MG TABLET PO PRN (21:48)
[2019-11-15] MEDS: ATORVASTATIN CA 10 MG TABLET (FP) PO SCH (21:48)
[2019-11-16] MEDS: ACETAMINOPHEN 325 MG TABLET (FP) PO SCH ×5 (00:15→23:35)
[2019-11-16] MEDS: METOCLOPRAMIDE HCL 10 MG TABLET (FP) PO SCH ×3 (07:06→16:33)
--- NOTE | 2019-11-16 08:49 | PN ---
Teaching Attending Note Name of Resident: Hayes Meza ATTENDING PHYSICIAN STATEMENT I saw and evaluated the patient. I reviewed the resident's note and discussed the case with the resident. I agree with the resident's findings and plan as documented. SUBJECTIVE: Patient seen and examined at bedside, discussed with Dr. Pardo, no concerning sign of infection, good granulation tissue, will need skin graft in 1-2 weeks. OBJECTIVE: GENERAL: A&Ox3, no acute distress EYES: PERRLA, EOMI LUNGS: CTA, no wheezes HEART: RRR, no murmurs ABDOMEN: Soft, nontender, BS present EXTREMITIES: 2+ pulses, no edema. R sided wound noted on anterior tibia with wound vac placed NEUROLOGICAL: Cranial nerves II-XII intact. Vital Signs - 24 hr 11/15/19 11/15/19 11/15/19 14:00 16:30 21:00 Temperature 98.1 F 97.4 F L Pulse Rate 93 H 86 Respiratory 20 20 20 Rate Blood Pressure 123/65 136/73 O2 Sat by Pulse 95 Oximetry (%) 11/16/19 11/16/19 00:31 06:00 Temperature 97.4 F L 97.9 F Pulse Rate 84 70 Respiratory 20 20 Rate Blood Pressure 145/77 103/56 L O2 Sat by Pulse Oximetry (%) Home Medications Medication Instructions Recorded Ascorbic Acid [Vitamin C] 1,000 mg PO DAILY 08/20/19 Apixaban [Eliquis -] 5 mg PO BID tablet 09/03/19 Albuterol Sulfate Inhaler - 2 puff IH Q4H PRN inhaler 11/09/19 [Ventolin HFA Inhaler -] Clotrimazole/Betamet Diprop 1 applic TP BID tube 11/09/19 [Lotrisone -] Metoclopramide HCl [Reglan -] 10 mg PO TIDAC tablet 11/09/19 Vancomycin/0.9 % Sod Chloride 750 mg IV BID 30 Days plast..bag 11/09/19 [Vanco 750 mg/250 ml-0.9% NaCl] Zinc Sulfate [Orazinc -] 220 mg PO DAILY@0800 14 Days 11/09/19 capsule Acetaminophen 650 mg PO Q6H 11/12/19 Amino Acids/Protein Hydrolys 30 ml PO BID 11/12/19 [Pro-Stat Awc Liquid Packet] Atorvastatin Calcium 10 mg PO HS 11/12/19 Ergocalciferol [Vitamin D2] 50,000 unit PO MONTHLY 11/12/19 Lanolin/Mineral Oil [Eucerin 250 ml TP BID PRN 11/12/19 Original Lotion] Melatonin 3 mg PO HS PRN 11/12/19 Current Medications Generic Name Dose Route Start Last Admin Trade Name Freq PRN Reason Stop Dose Admin Acetaminophen 650 mg 11/12/19 18:00 11/16/19 07:05 Tylenol - PO 650 mg Q6HPO TARA Administration Albuterol Sulfate 2 puff 11/12/19 16:51 Ventolin Hfa Inhaler - IH Q4H PRN SHORT OF BREATH/WHEEZING Apixaban 5 mg 11/12/19 22:00 11/15/19 21:48 Eliquis - PO 5 mg BID TARA Administration Atorvastatin Calcium 10 mg 11/12/19 22:00 11/15/19 21:48 Lipitor - PO 10 mg HS TARA Administration Clotrimazole 1 applic 11/12/19 22:00 11/15/19 21:48 Lotrisone Cream (Small Tube) TP 1 applic BID TARA Administration Vancomycin HCl 750 mg/ 250 mls @ 250 mls/hr 11/12/19 22:00 11/15/19 21:49 Dextrose IVPB 250 mls/hr BID TARA Administration Melatonin 3 mg 11/12/19 16:51 11/15/19 21:48 Melatonin PO 3 mg HS PRN Administration INSOMNIA Metoclopramide HCl 10 mg 11/13/19 07:00 11/16/19 07:06 Reglan - PO 10 mg TIDAC TARA Administration Zinc Sulfate 220 mg 11/13/19 08:00 11/15/19 08:02 Orazinc - PO 220 mg DAILY@0800 TARA Administration ASSESSMENT AND PLAN: 79 F R knee debridement/culture with MRSA s/p wound vac Complicated wound by suspected patellar rupture HTN HLD Neurogenic bladder COPD (no on home ) recent DVT of right popliteal vein on Eliquis recent ortho surgeries (08/21 and 08/29) COVID positive Chronic constipation TOYIN Insomnia Plan: R knee culture growing MRSA, cont. Vancomycin, monitor trough levels and adjust as needed Patient now found with Patellar rupture, requires no ROM (bending) on R knee (likely new complication due to wound vac/manipulation?), will need patellar ligament reconstruction in future v.s. bracing, PT order for no bending of knee, nursing staff also to be notified Cont. BP meds as tolerated COVID neg. x1, repeat pending ID following Surgery following ( Dr Barron Pardo ), patient will require hospital stay for few more weeks for plan for skin grafting of wound w/ plastic surgery Cont. AC for DVT (OK by ortho team)
--- NOTE | 2019-11-16 09:03 | PN ---
Physical Exam: SUBJECTIVE: Patient seen and examined. No complaints today. No events overnight. OBJECTIVE: Vital Signs Period Temp Pulse Resp BP Sys/Hardy Pulse Ox Last 24 Hr 97.4 F-98.1 F 70-93 20-20 103-145/56-77 95 GENERAL: The patient is awake, alert, and fully oriented, in no acute distress. NECK: Trachea midline, full range of motion, supple. LUNGS: Breath sounds equal, clear to auscultation bilaterally, no wheezes, no crackles, no accessory muscle use. HEART: Regular rate and rhythm, S1, S2 without murmur, rub or gallop. ABDOMEN: Soft, nontender, nondistended, normoactive bowel sounds, no guarding, no rebound. EXTREMITIES: 2+ pulses, warm, well-perfused, no edema. NEUROLOGICAL: Cranial nerves II through X grossly intact. Normal speech, gait not observed. Active Medications Generic Name Dose Route Start Last Admin Trade Name Freq PRN Reason Stop Dose Admin Acetaminophen 650 mg 11/12/19 18:00 11/16/19 07:05 Tylenol - PO 650 mg Q6HPO TARA Administration Albuterol Sulfate 2 puff 11/12/19 16:51 Ventolin Hfa Inhaler - IH Q4H PRN SHORT OF BREATH/WHEEZING Apixaban 5 mg 11/12/19 22:00 11/15/19 21:48 Eliquis - PO 5 mg BID TARA Administration Atorvastatin Calcium 10 mg 11/12/19 22:00 11/15/19 21:48 Lipitor - PO 10 mg HS TARA Administration Clotrimazole 1 applic 11/12/19 22:00 11/15/19 21:48 Lotrisone Cream (Small Tube) TP 1 applic BID TARA Administration Vancomycin HCl 750 mg/ 250 mls @ 250 mls/hr 11/12/19 22:00 11/15/19 21:49 Dextrose IVPB 250 mls/hr BID TARA Administration Melatonin 3 mg 11/12/19 16:51 11/15/19 21:48 Melatonin PO 3 mg HS PRN Administration INSOMNIA Metoclopramide HCl 10 mg 11/13/19 07:00 11/16/19 07:06 Reglan - PO 10 mg TIDAC TARA Administration Zinc Sulfate 220 mg 11/13/19 08:00 11/15/19 08:02 Orazinc - PO 220 mg DAILY@0800 TARA Administration ASSESSMENT/PLAN: The patient is a 79 yo f w/ PMH HTN, COPD, DVT, multiple orthopedic surgeries and subsequent debridements who was brought into the ED at the instruction of her orthopedic surgeon for management of her chronic leg wound. #Chronic RLE wound -followed by Dr. Barron Pardo -RLE dressing clean, dry and intact; left in place at the instruction of Dr. Pardo. -patient w/ minimal pain at this time -serial debridements and wound care per Dr. Pardo -Follow van levels. will continue w/ 750mg BID dosing. d/w Dr. Mcclure. #Patellar rupture -likely new complication due to wound vac, will need repair in future v.s. b racing #DVT -on eliquis at SNF; will continue #HTN -will continue with home medications #COPD -will continue with home medications #FEN -no fluids indicated -lytes WNL, will replete PRN -Sodium controlled diet #Prophy -on eliquis #Dispo - med surg. Visit type - Emergency Visit Emergency Visit: Yes ED Registration Date: 11/12/19 Care time: The patient presented to the Emergency Department on the above date and was hospitalized for further evaluation of their emergent condition. - New Patient This patient is new to me today: No - Critical Care Critical Care patient: No ATTENDING PHYSICIAN STATEMENT I saw and evaluated the patient. I reviewed the resident's note and discussed the case with the resident. I agree with the resident's findings and plan as documented. SUBJECTIVE: OBJECTIVE: ASSESSMENT AND PLAN:
[2019-11-16] MEDS: VANCOMYCIN 750 MG in DEXTROSE 5%-WATER - 250 ML IVPB SCH ×2 (10:59→21:20)
[2019-11-16] MEDS: APIXABAN 5 MG TABLET PO SCH ×2 (11:00→21:20)
[2019-11-16] MEDS: ZINC SULFATE 220 MG CAPSULE (FP) PO SCH (11:00)
[2019-11-16] MEDS: CLOTRIMAZOLE/BETAMET DIPROP 15 GM TUBE TP SCH ×2 (11:01→21:25)
[2019-11-16] MEDS ORDERED: PT OWN MED DRAWER 7, Y5N ONE ×2 (11:48→20:41)
--- NOTE | 2019-11-16 18:15 | PN ---
Teaching Attending Note Name of Resident: Hayes Meza ATTENDING PHYSICIAN STATEMENT I saw and evaluated the patient. I reviewed the resident's note and discussed the case with the resident. I agree with the resident's findings and plan as documented. SUBJECTIVE: Patient seen and examined at bedside, endorses R knee pain but has immobilizer d/t patellar tendon rupture, awaiting skin graft, will need few more weeks in hospital as per Ortho team. VSS. OBJECTIVE: GENERAL: A&Ox3, no acute distress EYES: PERRLA, EOMI LUNGS: CTA, no wheezes HEART: RRR, no murmurs ABDOMEN: Soft, nontender, BS present EXTREMITIES: 2+ pulses, no edema. R sided wound noted on anterior tibia with wound vac placed, R immobilzier placed. NEUROLOGICAL: Cranial nerves II-XII intact. Vital Signs - 24 hr 11/15/19 11/16/19 11/16/19 21:00 00:31 06:00 Temperature 97.4 F L 97.9 F Pulse Rate 84 70 Respiratory 20 20 20 Rate Blood Pressure 145/77 103/56 L O2 Sat by Pulse 95 Oximetry (%) 11/16/19 11/16/19 11/16/19 09:00 10:00 14:39 Temperature 98 F 98.7 F Pulse Rate 92 H 95 H Respiratory 20 20 20 Rate Blood Pressure 130/77 127/68 O2 Sat by Pulse 95 Oximetry (%) Home Medications Medication Instructions Recorded Ascorbic Acid [Vitamin C] 1,000 mg PO DAILY 08/20/19 Apixaban [Eliquis -] 5 mg PO BID tablet 09/03/19 Albuterol Sulfate Inhaler - 2 puff IH Q4H PRN inhaler 11/09/19 [Ventolin HFA Inhaler -] Clotrimazole/Betamet Diprop 1 applic TP BID tube 11/09/19 [Lotrisone -] Metoclopramide HCl [Reglan -] 10 mg PO TIDAC tablet 11/09/19 Vancomycin/0.9 % Sod Chloride 750 mg IV BID 30 Days plast..bag 11/09/19 [Vanco 750 mg/250 ml-0.9% NaCl] Zinc Sulfate [Orazinc -] 220 mg PO DAILY@0800 14 Days 11/09/19 capsule Acetaminophen 650 mg PO Q6H 11/12/19 Amino Acids/Protein Hydrolys 30 ml PO BID 11/12/19 [Pro-Stat Awc Liquid Packet] Atorvastatin Calcium 10 mg PO HS 11/12/19 Ergocalciferol [Vitamin D2] 50,000 unit PO MONTHLY 11/12/19 Lanolin/Mineral Oil [Eucerin 250 ml TP BID PRN 11/12/19 Original Lotion] Melatonin 3 mg PO HS PRN 11/12/19 Current Medications Generic Name Dose Route Start Last Admin Trade Name Freq PRN Reason Stop Dose Admin Acetaminophen 650 mg 11/12/19 18:00 11/16/19 17:09 Tylenol - PO 650 mg Q6HPO TARA Administration Albuterol Sulfate 2 puff 11/12/19 16:51 Ventolin Hfa Inhaler - IH Q4H PRN SHORT OF BREATH/WHEEZING Apixaban 5 mg 11/12/19 22:00 11/16/19 11:00 Eliquis - PO 5 mg BID TARA Administration Atorvastatin Calcium 10 mg 11/12/19 22:00 11/15/19 21:48 Lipitor - PO 10 mg HS TARA Administration Clotrimazole 1 applic 11/12/19 22:00 11/16/19 11:01 Lotrisone Cream (Small Tube) TP 1 applic BID TARA Administration Vancomycin HCl 750 mg/ 250 mls @ 250 mls/hr 11/12/19 22:00 11/16/19 10:59 Dextrose IVPB 250 mls/hr BID TARA Administration Melatonin 3 mg 11/12/19 16:51 11/15/19 21:48 Melatonin PO 3 mg HS PRN Administration INSOMNIA Metoclopramide HCl 10 mg 11/13/19 07:00 11/16/19 16:33 Reglan - PO 10 mg TIDAC TARA Administration Zinc Sulfate 220 mg 11/13/19 08:00 11/16/19 11:00 Orazinc - PO 220 mg DAILY@0800 TARA Administration ASSESSMENT AND PLAN: 79 F R knee debridement/culture with MRSA s/p wound vac Complicated wound by suspected patellar rupture HTN HLD Neurogenic bladder COPD (no on home ) recent DVT of right popliteal vein on Eliquis recent ortho surgeries (08/21 and 08/29) COVID positive Chronic constipation TOYIN Insomnia Plan: R knee culture growing MRSA, cont. Vancomycin, monitor trough levels and adjust as needed Suspected patellar tendon rupture, requires restrictive ROM (bending) on R knee (likely new complication due to wound vac/manipulation?), will need patellar ligament reconstruction in future v.s. bracing Cont. BP meds as tolerated COVID neg. x1 ID following Surgery following ( Dr Barron Pardo ), patient will require hospital stay for few more weeks for plan for skin grafting of wound w/ plastic surgery Cont. AC for DVT (OK by ortho team)
[2019-11-16] MEDS: ATORVASTATIN CA 10 MG TABLET (FP) PO SCH (21:20)
[2019-11-17] MEDS: METOCLOPRAMIDE HCL 10 MG TABLET (FP) PO SCH ×3 (06:14→17:24)
[2019-11-17] MEDS: ACETAMINOPHEN 325 MG TABLET (FP) PO SCH ×4 (06:14→23:13)
[2019-11-17 07:21] LABS: BASO % 1.2 % (0-2.0); HEMATOCRIT 36.8 % (32.4-45.2); LYMPH % 22.9 % (8-40); MCH 32.2 pg (25.7-33.7); MCHC 32.7 g/dl (32.0-36.0); MEAN CELL VOLUME 98.3 fl (80-96); MONO % 11.3 % (3.8-10.2); NEUT % 61.6 % (42.8-82.8); PLATELET COUNT 283 K/MM3 (134-434); RBC 3.74 M/mm3 (3.60-5.2); RDW 15.1 % (11.6-15.6); WHITE BLOOD COUNT 4.6 K/mm3 (4.0-10.0)
[2019-11-17 07:55] LABS: ALBUMIN 2.6 g/dl (3.4-5.0); BILIRUBIN,TOTAL 0.6 mg/dL (0.2-1); BLOOD UREA NITROGEN 8.5 mg/dL (7-18); CALCIUM 10.4 mg/dL (8.5-10.1); CREATININE 0.5 mg/dL (0.55-1.3); MAGNESIUM 1.9 mg/dL (1.8-2.4); PHOSPHOROUS 2.8 mg/dL (2.5-4.9); POTASSIUM 4.1 mmol/L (3.5-5.1); TOT PROT 5.3 g/dl (6.4-8.2)
--- NOTE | 2019-11-17 09:10 | PN ---
Progress Note, Physician Chief Complaint: Right knee wound infection History of Present Illness: NAD On Wound vac Denies any pain Was OOB with PT today Right foot drop - Current Medication List Current Medications: Active Medications Acetaminophen (Tylenol -) 650 mg PO Q6HPO [facility] Last Admin: 11/17/19 06:14 Dose: 650 mg Documented by: Albuterol Sulfate (Ventolin Hfa Inhaler -) 2 puff IH Q4H PRN PRN Reason: SHORT OF BREATH/WHEEZING Apixaban (Eliquis -) 5 mg PO BID [facility] Last Admin: 11/16/19 21:20 Dose: 5 mg Documented by: Atorvastatin Calcium (Lipitor -) 10 mg PO HS [facility] Last Admin: 11/16/19 21:20 Dose: 10 mg Documented by: Clotrimazole (Lotrisone Cream (Small Tube)) 1 applic TP BID [facility] Last Admin: 11/16/19 21:25 Dose: 1 applic Documented by: Vancomycin HCl 750 mg/ (Dextrose) 250 mls @ 250 mls/hr IVPB BID [facility] Last Admin: 11/16/19 21:20 Dose: 250 mls/hr Documented by: Melatonin (Melatonin) 3 mg PO HS PRN PRN Reason: INSOMNIA Last Admin: 11/15/19 21:48 Dose: 3 mg Documented by: Metoclopramide HCl (Reglan -) 10 mg PO TIDAC [facility] Last Admin: 11/17/19 06:14 Dose: 10 mg Documented by: Zinc Sulfate (Orazinc -) 220 mg PO DAILY@0800 [facility] Last Admin: 11/16/19 11:00 Dose: 220 mg Documented by: - Objective Vital Signs: Vital Signs Temperature 98.3 F 11/17/19 02:05 Pulse Rate 89 11/17/19 02:05 Respiratory Rate 20 11/17/19 02:05 Blood Pressure 152/79 11/17/19 02:05 O2 Sat by Pulse Oximetry (%) 96 11/16/19 20:53 Constitutional: Yes: Well Nourished, No Distress, Calm Cardiovascular: Yes: Regular Rate and Rhythm Respiratory: Yes: Regular, CTA Bilaterally Gastrointestinal: Yes: Normal Bowel Sounds, Soft Genitourinary: Yes: Incontinence Musculoskeletal: Yes: Muscle Weakness Extremities: Yes: Other (Right foot drop) Edema: No Peripheral Pulses WNL: Yes Integumentary: Yes: Other (Right knee surgical wound) Wound/Incision: Yes: Dressing Dry and Intact Neurological: Yes: Alert, Oriented Psychiatric: Yes: Alert, Oriented Labs: CBC, BMP 11/17/19 06:30 11/17/19 06:00 INR, PTT INR 1.35 (0.83-1.09) H 11/12/19 13:41 Problem List - Problems (1) Right foot drop Assessment/Plan: -Physical therapy -Kerlix over the foot for pt to be able to flex and extend her foot 10 x Q1H -Nursing staff educated to stimulate the ankle by flexing and extending it during their visits in patients room. -OOBTC daily Problems reviewed: Yes Code(s): M21.371 - FOOT DROP, RIGHT FOOT (2) Surgical wound infection Assessment/Plan: -Last cultures + MRSA -ID consult -IV Vanco -Wound vac-to facilitate granulation tissue -Vanco trough before next dose Problems reviewed: Yes Code(s): T81.49XA - INFECTION FOLLOWING A PROCEDURE, OTHER SURGICAL SITE, INIT (3) S/P total knee replacement Assessment/Plan: -Seen by orthopedic surgery Problems reviewed: Yes Code(s): Z96.659 - PRESENCE OF UNSPECIFIED ARTIFICIAL KNEE JOINT Qualifiers: (4) Hypertension Assessment/Plan: -Low sodium diet Problems reviewed: Yes Code(s): I10 - ESSENTIAL (PRIMARY) HYPERTENSION (5) History of DVT (deep vein thrombosis) Assessment/Plan: In right popliteal and posterior tibial vein -Continue Eliquis 5 mg po bid Problems reviewed: Yes Code(s): Z86.718 - PERSONAL HISTORY OF OTHER VENOUS THROMBOSIS AND EMBOLISM Assessment/Plan See problem list Spoke to son Masoud over the phone to update pt's status.
[2019-11-17] MEDS: APIXABAN 5 MG TABLET PO SCH ×2 (09:55→21:47)
[2019-11-17] MEDS: ZINC SULFATE 220 MG CAPSULE (FP) PO SCH (09:55)
[2019-11-17] MEDS: CLOTRIMAZOLE/BETAMET DIPROP 15 GM TUBE TP SCH ×2 (09:56→21:46)
[2019-11-17] MEDS ORDERED: PT OWN MED DRAWER 7, Y5N ONE ×3 (13:50→23:15)
[2019-11-17] MEDS: VANCOMYCIN 750 MG in DEXTROSE 5%-WATER - 250 ML IVPB SCH ×2 (13:59→23:13)
[2019-11-17] MEDS: AMINO ACIDS/PROTEIN HYDROLYS 30 ML LIQUID.PKT PO SCH (17:24)
--- NOTE | 2019-11-17 17:43 | CON.ID ---
Consult - History of Present Illness History of Present Illness: 79 y.o. female with PMH of HTN, COPD, Rt pop DVT, COVID, s/p revision of RT TKR and debridements with tibial wound/hardware exposure and possible patellar rupture readmitted for further management. Cultures +MRSA, pt on Vancomycin IV. Pt is alert, without distress. C/O intermittent sharp pain in RLE. Otherwise afebrile and has no other specific complaints. - Past Medical History Cardio/Vascular: Yes: Deep Vein Thrombosis, HTN Pulmonary: Yes: COPD ...: No Infectious Disease: Yes: Other (COVID) - Past Surgical History Past Surgical History: Yes: Joint Replacement Additional Surgical History: knee revision/wound debridements - Alcohol/Substance Use Hx Alcohol Use: Yes (SOCIALLY) - Smoking History Smoking history: Never smoked Have you smoked in the past 12 months: No Home Medications - Allergies Allergies/Adverse Reactions: Allergies Allergy/AdvReac Type Severity Reaction Status Date / Time Sulfa (Sulfonamide Allergy Severe Rash Verified 08/20/19 11:56 Antibiotics) ibuprofen AdvReac Severe RBC'S Verified 08/20/19 11:57 DROPPED - Home Medications Home Medications: Ambulatory Orders Ascorbic Acid [Vitamin C] 1,000 mg PO DAILY 08/20/19 Apixaban [Eliquis -] 5 mg PO BID tablet 09/03/19 Albuterol Sulfate Inhaler - [Ventolin HFA Inhaler -] 2 puff IH Q4H PRN inhaler 11/09/19 Clotrimazole/Betamet Diprop [Lotrisone -] 1 applic TP BID tube 11/09/19 Metoclopramide HCl [Reglan -] 10 mg PO TIDAC tablet 11/09/19 Vancomycin/0.9 % Sod Chloride [Vanco 750 mg/250 ml-0.9% NaCl] 750 mg IV BID 30 Days plast..bag 11/09/19 Zinc Sulfate [Orazinc -] 220 mg PO DAILY@0800 14 Days capsule 11/09/19 Acetaminophen 650 mg PO Q6H 11/12/19 Amino Acids/Protein Hydrolys [Pro-Stat Awc Liquid Packet] 30 ml PO BID 11/12/19 Atorvastatin Calcium 10 mg PO HS 11/12/19 Ergocalciferol [Vitamin D2] 50,000 unit PO MONTHLY 11/12/19 Lanolin/Mineral Oil [Eucerin Original Lotion] 250 ml TP BID PRN 11/12/19 Melatonin 3 mg PO HS PRN 11/12/19 Review of Systems - Review of Systems Constitutional: reports: No Symptoms Eyes: reports: No Symptoms HENT: reports: No Symptoms Neck: reports: No Symptoms Cardiovascular: reports: No Symptoms Respiratory: reports: No Symptoms Gastrointestinal: reports: No Symptoms Genitourinary: reports: No Symptoms Musculoskeletal: reports: Extremity Pain Integumentary: reports: No Symptoms Neurological: reports: No Symptoms Endocrine: reports: No Symptoms Hematology/Lymphatic: reports: No Symptoms Psychiatric: reports: No Symptoms Pain Intensity: 7 Physical Exam Vital Signs: Vital Signs Temperature 98.5 F 11/17/19 13:59 Pulse Rate 108 H 11/17/19 13:59 Respiratory Rate 20 11/17/19 13:59 Blood Pressure 126/70 11/17/19 13:59 O2 Sat by Pulse Oximetry (%) 96 11/17/19 09:00 Constitutional: Yes: No Distress, Calm Eyes: Yes: Conjunctiva Clear, EOM Intact HENT: Yes: Atraumatic, Normocephalic Neck: Yes: Supple Cardiovascular: Yes: Regular Rate and Rhythm Respiratory: Yes: CTA Bilaterally Gastrointestinal: Yes: Normal Bowel Sounds, Soft Renal/: Yes: WNL Extremities: Yes: Other (RLE wound vac/immobilizer) Edema: No Integumentary: Yes: WNL Neurological: Yes: Alert, Oriented Labs: CBC, BMP 11/17/19 06:30 11/17/19 06:00 Laboratory Last Values WBC 4.6 K/mm3 (4.0-10.0) 11/17/19 06:30 RBC 3.74 M/mm3 (3.60-5.2) 11/17/19 06:30 Hgb 12.0 GM/dL (10.7-15.3) 11/17/19 06:30 Hct 36.8 % (32.4-45.2) 11/17/19 06:30 MCV 98.3 fl (80-96) H 11/17/19 06:30 MCH 32.2 pg (25.7-33.7) 11/17/19 06:30 MCHC 32.7 g/dl (32.0-36.0) 11/17/19 06:30 RDW 15.1 % (11.6-15.6) 11/17/19 06:30 Plt Count 283 K/MM3 (134-434) 11/17/19 06:30 MPV 7.0 fl (7.5-11.1) L 11/17/19 06:30 Absolute Neuts (auto) 2.8 K/mm3 (1.5-8.0) 11/17/19 06:30 Neutrophils % 61.6 % (42.8-82.8) 11/17/19 06:30 Lymphocytes % 22.9 % (8-40) 11/17/19 06:30 Monocytes % 11.3 % (3.8-10.2) H 11/17/19 06:30 Eosinophils % 3.0 % (0-4.5) 11/17/19 06:30 Basophils % 1.2 % (0-2.0) 11/17/19 06:30 Nucleated RBC % 0 % (0-0) 11/17/19 06:30 PT with INR 16.00 SEC (9.7-13.0) H 11/12/19 13:41 INR 1.35 (0.83-1.09) H 11/12/19 13:41 PTT (Actin FS) 35.8 SECONDS (25.2-36.5) 11/12/19 13:41 Sodium 134 mmol/L (136-145) L 11/17/19 06:00 Potassium 4.1 mmol/L (3.5-5.1) 11/17/19 06:00 Chloride 101 mmol/L (98-107) 11/17/19 06:00 Carbon Dioxide 26 mmol/L (21-32) 11/17/19 06:00 Anion Gap 7 MMOL/L (8-16) L 11/17/19 06:00 BUN 8.5 mg/dL (7-18) 11/17/19 06:00 Creatinine 0.5 mg/dL (0.55-1.3) L 11/17/19 06:00 Est GFR (CKD-EPI)AfAm 105.20 11/17/19 06:00 Est GFR (CKD-EPI)NonAf 90.77 11/17/19 06:00 POC Glucometer 152 UNITS (80-120) 11/15/19 05:37 Random Glucose 93 mg/dL (74-106) 11/17/19 06:00 Calcium 10.4 mg/dL (8.5-10.1) H 11/17/19 06:00 Phosphorus 2.8 mg/dL (2.5-4.9) 11/17/19 06:00 Magnesium 1.9 mg/dL (1.8-2.4) 11/17/19 06:00 Total Bilirubin 0.6 mg/dL (0.2-1) 11/17/19 06:00 AST 13 U/L (15-37) L 11/17/19 06:00 ALT 11 U/L (13-61) L 11/17/19 06:00 Alkaline Phosphatase 77 U/L (45-117) 11/17/19 06:00 Total Protein 5.3 g/dl (6.4-8.2) L 11/17/19 06:00 Albumin 2.6 g/dl (3.4-5.0) L 11/17/19 06:00 Random Vancomycin 15.0 ug/ml (5-26) 11/12/19 21:15 Vancomycin Pre-Dose 19.2 ug/ml (5-10) H 11/17/19 09:53 COVID-19 (HANNY) Not detected (Not Detected) 11/12/19 14:44 Blood Type O POSITIVE 11/12/19 13:41 Antibody Screen Negative 11/12/19 13:41 Problem List - Problems (1) History of DVT (deep vein thrombosis) Code(s): Z86.718 - PERSONAL HISTORY OF OTHER VENOUS THROMBOSIS AND EMBOLISM (2) Right foot drop Code(s): M21.371 - FOOT DROP, RIGHT FOOT (3) Surgical wound infection Code(s): T81.49XA - INFECTION FOLLOWING A PROCEDURE, OTHER SURGICAL SITE, INIT (4) S/P total knee replacement Code(s): Z96.659 - PRESENCE OF UNSPECIFIED ARTIFICIAL KNEE JOINT Qualifiers: (5) COVID-19 Code(s): U07.1 - COVID POSITIVE (6) Hypertension Code(s): I10 - ESSENTIAL (PRIMARY) HYPERTENSION (7) Inability to ambulate due to knee Code(s): R26.2 - DIFFICULTY IN WALKING, NOT ELSEWHERE CLASSIFIED (8) Yanet-prosthetic fracture around prosthetic knee Code(s): M97.8XXA - PERIPROSTH FRACTURE AROUND OTHER INTERNAL PROSTH JOINT, INIT; Z96.659 - PRESENCE OF UNSPECIFIED ARTIFICIAL KNEE JOINT (9) COPD (chronic obstructive pulmonary disease) Code(s): J44.9 - CHRONIC OBSTRUCTIVE PULMONARY DISEASE, UNSPECIFIED (10) History of revision of total knee arthroplasty Code(s): Z96.659 - PRESENCE OF UNSPECIFIED ARTIFICIAL KNEE JOINT Assessment/Plan 79 y.o. female with PMH of HTN, COPD, Rt pop DVT, COVID, s/p revision of RT TKR and debridements with tibial wound/hardware exposure and possible patellar rupture readmitted for further management Rt tibial wound infection s/p debridement +MRSA /wound vac Rt TKR s/p revisions Possible Rt patellar rupture -- continue Vancomycin -- Vancomycin level noted, repeat -- renal function normal, continue monitor -- knee in immobilizer -- for skin graft, Plastic surgery followup -- Possible patellar repair -- Orthopedics follow up Will follow thank you
[2019-11-17] MEDS ORDERED: oxyCODONE HCL 5 MG TABLET PO ONE (19:56)
[2019-11-17] MEDS: ATORVASTATIN CA 10 MG TABLET (FP) PO SCH (21:47)
[2019-11-17] MEDS: MELATONIN 1 MG TABLET PO PRN (23:13)
[2019-11-18] MEDS: METOCLOPRAMIDE HCL 10 MG TABLET (FP) PO SCH ×3 (06:11→16:22)
[2019-11-18] MEDS: ACETAMINOPHEN 325 MG TABLET (FP) PO SCH ×4 (07:01→23:27)
[2019-11-18 07:59] LABS: EOS % 1.2 % (0-4.5); HEMATOCRIT 33.3 % (32.4-45.2); HEMOGLOBIN 11.6 GM/dL (10.7-15.3); LYMPH % 21.3 % (8-40); MCH 33.3 pg (25.7-33.7); MCHC 34.9 g/dl (32.0-36.0); MEAN CELL VOLUME 95.5 fl (80-96); MONO % 10.3 % (3.8-10.2); NEUT % 66.2 % (42.8-82.8); PLATELET COUNT 291 K/MM3 (134-434); RBC 3.49 M/mm3 (3.60-5.2); RDW 14.6 % (11.6-15.6); WHITE BLOOD COUNT 4.7 K/mm3 (4.0-10.0)
--- NOTE | 2019-11-18 08:30 | PN ---
Progress Note, Physician Chief Complaint: Right knee wound infection History of Present Illness: NAD On Wound vac Denies any pain Was OOB with PT today Right foot drop - Current Medication List Current Medications: Active Medications Acetaminophen (Tylenol -) 650 mg PO Q6HPO [facility] Last Admin: 11/18/19 07:01 Dose: 650 mg Documented by: Albuterol Sulfate (Ventolin Hfa Inhaler -) 2 puff IH Q4H PRN PRN Reason: SHORT OF BREATH/WHEEZING Amino Acids (Prosource No Carb Liquid Pkt) 30 ml PO BID@0800,1730 [facility] Last Admin: 11/17/19 17:24 Dose: 30 ml Documented by: Apixaban (Eliquis -) 5 mg PO BID [facility] Last Admin: 11/17/19 21:47 Dose: 5 mg Documented by: Atorvastatin Calcium (Lipitor -) 10 mg PO HS [facility] Last Admin: 11/17/19 21:47 Dose: 10 mg Documented by: Clotrimazole (Lotrisone Cream (Small Tube)) 1 applic TP BID [facility] Last Admin: 11/17/19 21:46 Dose: 1 applic Documented by: Vancomycin HCl 750 mg/ (Dextrose) 250 mls @ 250 mls/hr IVPB BID [facility] Last Admin: 11/17/19 23:13 Dose: 250 mls/hr Documented by: Melatonin (Melatonin) 3 mg PO HS PRN PRN Reason: INSOMNIA Last Admin: 11/17/19 23:13 Dose: 3 mg Documented by: Metoclopramide HCl (Reglan -) 10 mg PO TIDAC [facility] Last Admin: 11/18/19 06:11 Dose: 10 mg Documented by: Zinc Sulfate (Orazinc -) 220 mg PO DAILY@0800 [facility] Last Admin: 11/17/19 09:55 Dose: 220 mg Documented by: - Objective Vital Signs: Vital Signs Temperature 98.4 F 11/18/19 05:00 Pulse Rate 84 11/18/19 05:00 Respiratory Rate 11/18/19 05:00 Blood Pressure 152/72 11/18/19 05:00 O2 Sat by Pulse Oximetry (%) 95 11/17/19 21:00 Constitutional: Yes: Well Nourished, No Distress, Calm Cardiovascular: Yes: Regular Rate and Rhythm Respiratory: Yes: Regular, CTA Bilaterally Gastrointestinal: Yes: Normal Bowel Sounds, Soft Genitourinary: Yes: Incontinence Musculoskeletal: Yes: Muscle Weakness Edema: No Peripheral Pulses WNL: Yes Wound/Incision: Yes: Dressing Dry and Intact (Right knee wound vac+ knee immobilizer) Neurological: Yes: Alert, Oriented Psychiatric: Yes: Alert, Oriented Labs: CBC, BMP 11/18/19 06:25 INR, PTT INR 1.35 (0.83-1.09) H 11/12/19 13:41 Problem List - Problems (1) Right foot drop Assessment/Plan: -Physical therapy -Kerlix over the foot for pt to be able to flex and extend her foot 10 x Q1H -Nursing staff educated to stimulate the ankle by flexing and extending it during their visits in patients room. -OOBTC daily Problems reviewed: Yes Code(s): M21.371 - FOOT DROP, RIGHT FOOT (2) Surgical wound infection Assessment/Plan: -Last cultures + MRSA -ID consult -IV Vanco -Wound vac-to facilitate granulation tissue -Vanco trough before next dose Problems reviewed: Yes Code(s): T81.49XA - INFECTION FOLLOWING A PROCEDURE, OTHER SURGICAL SITE, INIT (3) S/P total knee replacement Assessment/Plan: -Seen by orthopedic surgery -Right knee immobilizer -Wound vac Problems reviewed: Yes Code(s): Z96.659 - PRESENCE OF UNSPECIFIED ARTIFICIAL KNEE JOINT Qualifiers: (4) Hypertension Assessment/Plan: -Low sodium diet Problems reviewed: Yes Code(s): I10 - ESSENTIAL (PRIMARY) HYPERTENSION (5) History of DVT (deep vein thrombosis) Assessment/Plan: In right popliteal and posterior tibial vein -Continue Eliquis 5 mg po bid Problems reviewed: Yes Code(s): Z86.718 - PERSONAL HISTORY OF OTHER VENOUS THROMBOSIS AND EMBOLISM Assessment/Plan See problem list Spoke to son Masoud over the phone to update pt's status.
[2019-11-18 08:31] LABS: ALBUMIN 2.5 g/dl (3.4-5.0); BILIRUBIN,TOTAL 0.7 mg/dL (0.2-1); BLOOD UREA NITROGEN 10.7 mg/dL (7-18); CALCIUM 10.3 mg/dL (8.5-10.1); CREATININE 0.5 mg/dL (0.55-1.3); POTASSIUM 4.1 mmol/L (3.5-5.1); TOT PROT 5.3 g/dl (6.4-8.2)
[2019-11-18] MEDS: AMINO ACIDS/PROTEIN HYDROLYS 30 ML LIQUID.PKT PO SCH ×2 (08:35→17:19)
[2019-11-18] MEDS: ZINC SULFATE 220 MG CAPSULE (FP) PO SCH (08:35)
[2019-11-18] MEDS ORDERED: PT OWN MED DRAWER 7, Y5N ONE ×4 (10:21→23:06)
[2019-11-18] MEDS: CLOTRIMAZOLE/BETAMET DIPROP 15 GM TUBE TP SCH ×2 (10:27→21:15)
[2019-11-18] MEDS: APIXABAN 5 MG TABLET PO SCH ×2 (10:27→21:15)
[2019-11-18] MEDS: VANCOMYCIN 750 MG in DEXTROSE 5%-WATER - 250 ML IVPB SCH ×2 (10:27→21:03)
[2019-11-18] MEDS: POLYETHYLENE GLYCOL 3350 119 GM BTL PO SCH (11:25)
[2019-11-18] MEDS: HYDROCORTISONE ACETATE 25 MG/SUPP.RECT RC SCH ×2 (11:25→21:15)
[2019-11-18] MEDS: DOCUSATE SODIUM 100 MG CAPSULE (FP) PO SCH (21:16)
[2019-11-18] MEDS: ATORVASTATIN CA 10 MG TABLET (FP) PO SCH (21:16)
--- NOTE | 2019-11-18 21:42 | PN ---
Progress Note, Physician History of Present Illness: Pt with less pain. Getting OOB with PT. Afebrile. Vancomycin level noted. Dose tonight was held. - Current Medication List Current Medications: Active Medications Acetaminophen (Tylenol -) 650 mg PO Q6HPO [facility] Last Admin: 11/18/19 17:19 Dose: 650 mg Documented by: Albuterol Sulfate (Ventolin Hfa Inhaler -) 2 puff IH Q4H PRN PRN Reason: SHORT OF BREATH/WHEEZING Amino Acids (Prosource No Carb Liquid Pkt) 30 ml PO BID@0800,1730 [facility] Last Admin: 11/18/19 17:19 Dose: 30 ml Documented by: Apixaban (Eliquis -) 5 mg PO BID [facility] Last Admin: 11/18/19 21:15 Dose: 5 mg Documented by: Atorvastatin Calcium (Lipitor -) 10 mg PO HS [facility] Last Admin: 11/18/19 21:16 Dose: 10 mg Documented by: Clotrimazole (Lotrisone Cream (Small Tube)) 1 applic TP BID [facility] Last Admin: 11/18/19 21:15 Dose: 1 applic Documented by: Docusate Sodium (Colace -) 300 mg PO HS [facility] Last Admin: 11/18/19 21:16 Dose: Not Given Documented by: Hydrocortisone Acetate (Anusol Hc Suppository -) 25 mg RC BID [facility] Last Admin: 11/18/19 21:15 Dose: 25 mg Documented by: Melatonin (Melatonin) 3 mg PO HS PRN PRN Reason: INSOMNIA Last Admin: 11/17/19 23:13 Dose: 3 mg Documented by: Metoclopramide HCl (Reglan -) 10 mg PO TIDAC [facility] Last Admin: 11/18/19 16:22 Dose: 10 mg Documented by: Polyethylene Glycol (Miralax (For Daily Use) -) 17 gm PO DAILY [facility] Last Admin: 11/18/19 11:25 Dose: 17 gm Documented by: Tramadol HCl (Ultram -) 50 mg PO Q8H PRN PRN Reason: PAIN LEVEL 6-10 Zinc Sulfate (Orazinc -) 220 mg PO DAILY@0800 [facility] Last Admin: 11/18/19 08:35 Dose: 220 mg Documented by: - Objective Vital Signs: Vital Signs Temperature 98.3 F 11/18/19 14:14 Pulse Rate 94 H 11/18/19 14:14 Respiratory Rate 11/18/19 14:14 Blood Pressure 134/70 11/18/19 14:14 O2 Sat by Pulse Oximetry (%) 95 11/17/19 21:00 Constitutional: Yes: No Distress Cardiovascular: Yes: Regular Rate and Rhythm Respiratory: Yes: Regular Gastrointestinal: Yes: Normal Bowel Sounds, Soft Wound/Incision: Yes: Other (Wound vac) Neurological: Yes: Alert, Oriented Labs: CBC, BMP 11/18/19 06:25 11/18/19 06:25 INR, PTT INR 1.35 (0.83-1.09) H 11/12/19 13:41 Abnormal Lab Results 11/18/19 11/18/19 11/18/19 06:25 06:25 15:25 RBC 3.49 L MPV 7.0 L Monocytes % 10.3 H Sodium 133 L Anion Gap 6 L Creatinine 0.5 L Calcium 10.3 H AST 13 L ALT 11 L Total Protein 5.3 L Albumin 2.5 L Vancomycin Pre-Dose 25.2 H Problem List - Problems (1) History of DVT (deep vein thrombosis) Code(s): Z86.718 - PERSONAL HISTORY OF OTHER VENOUS THROMBOSIS AND EMBOLISM (2) Right foot drop Code(s): M21.371 - FOOT DROP, RIGHT FOOT (3) Surgical wound infection Code(s): T81.49XA - INFECTION FOLLOWING A PROCEDURE, OTHER SURGICAL SITE, INIT (4) S/P total knee replacement Code(s): Z96.659 - PRESENCE OF UNSPECIFIED ARTIFICIAL KNEE JOINT Qualifiers: (5) COVID-19 Code(s): U07.1 - COVID POSITIVE (6) Hypertension Code(s): I10 - ESSENTIAL (PRIMARY) HYPERTENSION (7) Inability to ambulate due to knee Code(s): R26.2 - DIFFICULTY IN WALKING, NOT ELSEWHERE CLASSIFIED (8) Yanet-prosthetic fracture around prosthetic knee Code(s): M97.8XXA - PERIPROSTH FRACTURE AROUND OTHER INTERNAL PROSTH JOINT, INIT; Z96.659 - PRESENCE OF UNSPECIFIED ARTIFICIAL KNEE JOINT (9) COPD (chronic obstructive pulmonary disease) Code(s): J44.9 - CHRONIC OBSTRUCTIVE PULMONARY DISEASE, UNSPECIFIED (10) History of revision of total knee arthroplasty Code(s): Z96.659 - PRESENCE OF UNSPECIFIED ARTIFICIAL KNEE JOINT Assessment/Plan 79 y.o. female with PMH of HTN, COPD, Rt pop DVT, COVID, s/p revision of RT TKR and debridements with tibial wound/hardware exposure and possible patellar rupture readmitted for further management Rt tibial wound infection s/p debridement +MRSA /wound vac Rt TKR s/p revisions Possible Rt patellar rupture -- Vancomycin trough 25 this am, dose tonight held, check random level in a.m. prior to re-ordering at adjusted dose once level < 15 -- renal function normal, continue monitor -- for skin graft, Plastic surgery followup -- Possible patellar repair -- Orthopedics follow up
[2019-11-18] MEDS: MELATONIN 1 MG TABLET PO PRN (23:28)
[2019-11-19] MEDS: ACETAMINOPHEN 325 MG TABLET (FP) PO SCH ×4 (06:29→23:20)
[2019-11-19] MEDS: METOCLOPRAMIDE HCL 10 MG TABLET (FP) PO SCH ×3 (06:29→16:36)
[2019-11-19 07:09] LABS: ALBUMIN 2.5 g/dl (3.4-5.0); BILIRUBIN,TOTAL 0.5 mg/dL (0.2-1); CALCIUM 10.3 mg/dL (8.5-10.1); CREATININE 0.6 mg/dL (0.55-1.3); POTASSIUM 4.3 mmol/L (3.5-5.1); TOT PROT 5.2 g/dl (6.4-8.2)
[2019-11-19] MEDS: AMINO ACIDS/PROTEIN HYDROLYS 30 ML LIQUID.PKT PO SCH ×2 (07:53→17:14)
[2019-11-19] MEDS: ZINC SULFATE 220 MG CAPSULE (FP) PO SCH (08:01)
--- NOTE | 2019-11-19 09:05 | PN ---
Progress Note, Physician - Current Medication List Current Medications: Active Medications Acetaminophen (Tylenol -) 650 mg PO Q6HPO [facility] Last Admin: 11/19/19 06:29 Dose: 650 mg Documented by: Albuterol Sulfate (Ventolin Hfa Inhaler -) 2 puff IH Q4H PRN PRN Reason: SHORT OF BREATH/WHEEZING Amino Acids (Prosource No Carb Liquid Pkt) 30 ml PO BID@0800,1730 [facility] Last Admin: 11/19/19 07:53 Dose: 30 ml Documented by: Apixaban (Eliquis -) 5 mg PO BID [facility] Last Admin: 11/18/19 21:15 Dose: 5 mg Documented by: Atorvastatin Calcium (Lipitor -) 10 mg PO HS [facility] Last Admin: 11/18/19 21:16 Dose: 10 mg Documented by: Clotrimazole (Lotrisone Cream (Small Tube)) 1 applic TP BID [facility] Last Admin: 11/18/19 21:15 Dose: 1 applic Documented by: Docusate Sodium (Colace -) 300 mg PO [facility] Last Admin: 11/18/19 21:16 Dose: Not Given Documented by: Hydrocortisone Acetate (Anusol Hc Suppository -) 25 mg RC BID [facility] Last Admin: 11/18/19 21:15 Dose: 25 mg Documented by: Melatonin (Melatonin) 3 mg PO HS PRN PRN Reason: INSOMNIA Last Admin: 11/18/19 23:28 Dose: 3 mg Documented by: Metoclopramide HCl (Reglan -) 10 mg PO TIDAC [facility] Last Admin: 11/19/19 06:29 Dose: 10 mg Documented by: Polyethylene Glycol (Miralax (For Daily Use) -) 17 gm PO DAILY [facility] Last Admin: 11/18/19 11:25 Dose: 17 gm Documented by: Tramadol HCl (Ultram -) 50 mg PO Q8H PRN PRN Reason: PAIN LEVEL 6-10 Zinc Sulfate (Orazinc -) 220 mg PO DAILY@0800 [facility] Last Admin: 11/19/19 08:01 Dose: 220 mg Documented by: - Objective Vital Signs: Vital Signs Temperature 97.3 F L 11/19/19 06:00 Pulse Rate 83 11/19/19 06:00 Respiratory Rate 18 11/19/19 06:00 Blood Pressure 139/77 11/19/19 06:00 O2 Sat by Pulse Oximetry (%) 95 11/18/19 21:00 Cardiovascular: Yes: S1, S2 Respiratory: Yes: Regular, CTA Bilaterally Gastrointestinal: Yes: Normal Bowel Sounds, Soft Wound/Incision: Yes: Dressing Dry and Intact Neurological: Yes: Alert, Oriented Labs: CBC, BMP 11/18/19 06:25 11/19/19 05:45 INR, PTT INR 1.35 (0.83-1.09) H 11/12/19 13:41 Assessment/Plan - Problems (1) Right foot drop Assessment/Plan: -Physical therapy -Kerlix over the foot for pt to be able to flex and extend her foot 10 x Q1H -Nursing staff educated to stimulate the ankle by flexing and extending it during their visits in patients room. -OOBTC daily Problems reviewed: Yes Code(s): M21.371 - FOOT DROP, RIGHT FOOT (2) Surgical wound infection Assessment/Plan: -Last cultures + MRSA -ID consult -IV Vanco -Wound vac-to facilitate granulation tissue -Vanco trough before next dose Problems reviewed: Yes Code(s): T81.49XA - INFECTION FOLLOWING A PROCEDURE, OTHER SURGICAL SITE, INIT (3) S/P total knee replacement Assessment/Plan: -Seen by orthopedic surgery -Right knee immobilizer -Wound vac Problems reviewed: Yes Code(s): Z96.659 - PRESENCE OF UNSPECIFIED ARTIFICIAL KNEE JOINT Qualifiers: (4) Hypertension Assessment/Plan: -Low sodium diet Problems reviewed: Yes Code(s): I10 - ESSENTIAL (PRIMARY) HYPERTENSION (5) History of DVT (deep vein thrombosis) Assessment/Plan: In right popliteal and posterior tibial vein -Continue Eliquis 5 mg po bid Problems reviewed: Yes Code(s): Z86.718 - PERSONAL HISTORY OF OTHER VENOUS THROMBOSIS AND EMBOLISM
[2019-11-19] MEDS ORDERED: PT OWN MED DRAWER 7, Y5N ONE (09:44)
[2019-11-19] MEDS: APIXABAN 5 MG TABLET PO SCH ×2 (09:46→22:07)
[2019-11-19] MEDS: POLYETHYLENE GLYCOL 3350 119 GM BTL PO SCH (09:47)
[2019-11-19] MEDS: HYDROCORTISONE ACETATE 25 MG/SUPP.RECT RC SCH ×2 (09:48→22:09)
[2019-11-19] MEDS: CLOTRIMAZOLE/BETAMET DIPROP 15 GM TUBE TP SCH ×2 (09:48→22:09)
--- NOTE | 2019-11-19 11:43 | PN ---
Progress Note (short form) - Note Progress Note: 79F s/p complex revision right total knee replacement/reconstruction 08/30/19 now p/w soft tissue breakdown and wound overlying right tibial tubercle. New onset right knee pain associated w/passive PROM R knee. New onset mild fresh red blood drainage in woundvac (previously, scant serous drainage). Pain well controlled at present. No acute events overnight. Pt. denies overnight history of headaches, chest pain, shortness of breath, nausea, vomiting, chills, & sweats. (+) Voiding; (+) Flatus; (+) BM. Pt. is receiving PROM R ankle (d/t to foot drop) to mitigate risk for Achilles contracture. (+) R heel offloaded on rolled towel. Custom function AFO & offloading night time AFO splints at bedside. All labs and vitals reviewed. PE: AAO x 3, NAD. R Knee: Wound Vac dressing removed. Wound overlying tibial tubercle 4.5cm (L) x 2.5cm (W) x 0.25cm deep as measured with ruler. Again, no concerning signs of wound infection: no purulence, exudate, pus, malodor, infectious drainage, or erythema. New partial VS full-thickness rupture of patellar ligament - likely source of patient's pain w/PROM R knee. Patella has not proximalized, so likely a partial-thickness tear. Unable to fully visualize ligament due to limited exposure. (+) Sanguinous drainage through defect in patellar ligament. (+) Excellent continued proligeration of granulation tissue formation since last dressing change. No debridement required. Tibial tubercle screw minimally exposed; almost completely overgrown with granulation tissue. No erythema involving skin margins or surrounding soft tissue. No nahomi-wound nor nahomi-articular signs of infection or inflammation. Xeroform patch placed over patellar ligament defect. Wound vac re-applied. Knee immobilizer applied. RLE M: HF/KF/KE/ADF 5/5; ADF/GTE 1/5 (I.E. foot drop). RLE S: Femoral, Saphenous, Lateral Sural, Tibial Nerves 2/2; Superficial Peroneal Nerve 1/2; Deep Peroneal Nerve 0/2. A/P: 79F s/p complex revision right total knee replacement/reconstruction 08/30/19 now p/w soft tissue breakdown and wound overlying right tibial tubercle. -Pt. to remain in house for wound care. -Despite new complication of patellar ligament rupture, wound care goal remains the same: I.E. continue stimulating proliferation of granulation tissue formation to cover the wound and serve as a healthy tissue recipient bed for skin grafting. Patellar ligament can be addressed at a later date so long as we can get the wound to heal. -Will order R knee [place] vs Drop-Lock brace. -Vac changes +/- bedside debridements q48-72 hours by surgical team only. -Pain control. -DVT PPx: -Chemical: Eliquis. -Mechanical: LLE SORAYA's, SCD's. -Incentive spirometry. -PT/OT/Rehab, OOBTC at least twice daily. -NO ROM RIGHT KNEE (due to patellar ligament rupture). -Strict TTWB RLE. -Offload B/L heels w/rolled towels under ankles to minimize risk of heel ulcer formation. -RLE AFO splint at all times; will order offloading R AFO splint to minimize heel ulcer formation risk. -Continue antibiotics. -Care as per ID & primary medical teams. -Will follow. Barron Pardo MD (Orthopaedic Surgery).
--- NOTE | 2019-11-19 12:57 | PN ---
Progress Note, Physician History of Present Illness: stable no new issues plans noted vanco level noted - Current Medication List Current Medications: Active Medications Acetaminophen (Tylenol -) 650 mg PO Q6HPO [facility] Last Admin: 11/19/19 11:38 Dose: 650 mg Documented by: Albuterol Sulfate (Ventolin Hfa Inhaler -) 2 puff IH Q4H PRN PRN Reason: SHORT OF BREATH/WHEEZING Amino Acids (Prosource No Carb Liquid Pkt) 30 ml PO BID@0800,1730 [facility] Last Admin: 11/19/19 07:53 Dose: 30 ml Documented by: Apixaban (Eliquis -) 5 mg PO BID [facility] Last Admin: 11/19/19 09:46 Dose: 5 mg Documented by: Atorvastatin Calcium (Lipitor -) 10 mg PO HS [facility] Last Admin: 11/18/19 21:16 Dose: 10 mg Documented by: Clotrimazole (Lotrisone Cream (Small Tube)) 1 applic TP BID [facility] Last Admin: 11/19/19 09:48 Dose: 1 applic Documented by: Docusate Sodium (Colace -) 300 mg PO [facility] Last Admin: 11/18/19 21:16 Dose: Not Given Documented by: Hydrocortisone Acetate (Anusol Hc Suppository -) 25 mg RC BID [facility] Last Admin: 11/19/19 09:48 Dose: 25 mg Documented by: Melatonin (Melatonin) 3 mg PO HS PRN PRN Reason: INSOMNIA Last Admin: 11/18/19 23:28 Dose: 3 mg Documented by: Metoclopramide HCl (Reglan -) 10 mg PO TIDAC [facility] Last Admin: 11/19/19 11:37 Dose: 10 mg Documented by: Polyethylene Glycol (Miralax (For Daily Use) -) 17 gm PO DAILY [facility] Last Admin: 11/19/19 09:47 Dose: 17 gm Documented by: Tramadol HCl (Ultram -) 50 mg PO Q8H PRN PRN Reason: PAIN LEVEL 6-10 Zinc Sulfate (Orazinc -) 220 mg PO DAILY@0800 [facility] Last Admin: 11/19/19 08:01 Dose: 220 mg Documented by: - Objective Vital Signs: Vital Signs Temperature 98.6 F 11/19/19 09:25 Pulse Rate 85 11/19/19 09:25 Respiratory Rate 20 06/08/20 09:25 Blood Pressure 154/79 11/19/19 09:25 O2 Sat by Pulse Oximetry (%) 95 11/18/19 21:00 Constitutional: Yes: No Distress, Calm Cardiovascular: Yes: S1, S2 Respiratory: Yes: Regular, CTA Bilaterally Gastrointestinal: Yes: Normal Bowel Sounds, Soft Musculoskeletal: Yes: WNL Extremities: Yes: Other Wound/Incision: Yes: Dressing Dry and Intact Neurological: Yes: Alert, Oriented Psychiatric: Yes: Alert, Oriented Labs: CBC, BMP 11/18/19 06:25 11/19/19 05:45 INR, PTT INR 1.35 (0.83-1.09) H 11/12/19 13:41 Assessment/Plan Problem List - Problems (1) History of DVT (deep vein thrombosis) Code(s): Z86.718 - PERSONAL HISTORY OF OTHER VENOUS THROMBOSIS AND EMBOLISM (2) Right foot drop Code(s): M21.371 - FOOT DROP, RIGHT FOOT (3) Surgical wound infection Code(s): T81.49XA - INFECTION FOLLOWING A PROCEDURE, OTHER SURGICAL SITE, INIT (4) S/P total knee replacement Code(s): Z96.659 - PRESENCE OF UNSPECIFIED ARTIFICIAL KNEE JOINT Qualifiers: (5) COVID-19 Code(s): U07.1 - COVID POSITIVE (6) Hypertension Code(s): I10 - ESSENTIAL (PRIMARY) HYPERTENSION (7) Inability to ambulate due to knee Code(s): R26.2 - DIFFICULTY IN WALKING, NOT ELSEWHERE CLASSIFIED (8) Yanet-prosthetic fracture around prosthetic knee Code(s): M97.8XXA - PERIPROSTH FRACTURE AROUND OTHER INTERNAL PROSTH JOINT, INIT; Z96.659 - PRESENCE OF UNSPECIFIED ARTIFICIAL KNEE JOINT (9) COPD (chronic obstructive pulmonary disease) Code(s): J44.9 - CHRONIC OBSTRUCTIVE PULMONARY DISEASE, UNSPECIFIED (10) History of revision of total knee arthroplasty Code(s): Z96.659 - PRESENCE OF UNSPECIFIED ARTIFICIAL KNEE JOINT Assessment/Plan 79 y.o. female with PMH of HTN, COPD, Rt pop DVT, COVID, s/p revision of RT TKR and debridements with tibial wound/hardware exposure and possible patellar rupture readmitted for further management Rt tibial wound infection s/p debridement +MRSA /wound vac Rt TKR s/p revisions Possible Rt patellar rupture vanco trough noted will restart vanco wound care plastics rest as per the team
[2019-11-19] MEDS: VANCOMYCIN 1 GRAM (PRE-DOCKED) 1,000 MG/250 ML BAG IVPB SCH (13:19)
[2019-11-19] MEDS: traMADol HCL 50 MG TABLET PO PRN (13:39)
--- NOTE | 2019-11-19 13:55 | PN ---
Progress Note (short form) - Note Progress Note: 79F s/p complex revision right total knee replacement/reconstruction 08/30/19 now p/w soft tissue breakdown and wound overlying right tibial tubercle. Pain well controlled at present. No acute events overnight. Pt. denies overnight history of headaches, chest pain, shortness of breath, nausea, vomiting, chills, & sweats. (+) Voiding; (+) Flatus; (+) BM. Pt. is receiving PROM R ankle (d/t to foot drop) to mitigate risk for Achilles contracture. (+) R heel offloaded on rolled towel. Custom function AFO & offloading night time AFO splints at bedside. (+) RLE knee immobilizer in place. All labs and vitals reviewed. PE: AAO x 3, NAD. R Knee: Wound Vac dressing removed. Wound overlying tibial tubercle unchanged in size 4.5cm (L) x 2.5cm (W) x 0.25cm deep as measured with ruler. No concerning signs of wound infection: no purulence, exudate, pus, malodor, infectious drainage, or surrounding erythema. Patellar ligament rupture unchanged (partial VS full-thickness indeterminate). Patella has not proximalized, so likely a partial-thickness tear. Unable to fully visualize ligament due to limited exposure. (+) Minimal sanguinous drainage through defect in patellar ligament. (+) Continued proliferation of granulation tissue formation since last dressing change. Wound debrided at bedside. Tibial tubercle screw minimally exposed; almost completely overgrown with granulation tissue. No erythema involving skin margins or surrounding soft tissue. No nahomi-wound nor nahomi-articular signs of infection or inflammation. Wound vac re-applied. Knee immobilizer re-applied. RLE M: HF/KF/KE/ADF /; ADF/GTE 06/17 (I.E. foot drop). RLE S: Femoral, Saphenous, Lateral Sural, Tibial Nerves 2/2; Superficial Peroneal Nerve 1/2; Deep Peroneal Nerve 0/2. A/P: 79F s/p complex revision right total knee replacement/reconstruction 08/30/19 now p/w soft tissue breakdown and wound overlying right tibial tubercle. -Pt. to remain in house for wound care. -Despite new complication of patellar ligament rupture, wound care goal remains the same: I.E. continue stimulating proliferation of granulation tissue formation to cover the wound and serve as a healthy tissue recipient bed for skin grafting. Patellar ligament can be addressed at a later date so long as we can get the wound to heal. -Will order R knee [place] vs Drop-Lock brace. -Vac changes +/- bedside debridements q48-72 hours by surgical team only. -Pain control. -DVT PPx: -Chemical: Eliquis. -Mechanical: LLE SORAYA's, SCD's. -Incentive spirometry. -PT/OT/Rehab, OOBTC at least twice daily. -NO ROM RIGHT KNEE (due to patellar ligament rupture). -PT & Nursing PROM R ANKLE (DORSIFLEXION) OFTEN POSSIBLE TO STRETCH ACHILLES AND PREVENT EQUINUS CONTRACTURE. -WBAT RLE w/KNEE IMMOBILIZER ON. -Offload B/L heels w/rolled towels under ankles to minimize risk of heel ulcer formation. -R Ankle AFO splints as needed. -Continue antibiotics. -Care as per ID & primary medical teams. -Will follow. Barron Pardo MD (Orthopaedic Surgery).
[2019-11-19] MEDS: ATORVASTATIN CA 10 MG TABLET (FP) PO SCH (22:06)
[2019-11-19] MEDS: DOCUSATE SODIUM 100 MG CAPSULE (FP) PO SCH (22:08)
[2019-11-19] MEDS: MELATONIN 1 MG TABLET PO PRN (23:21)
[2019-11-20] MEDS: traMADol HCL 50 MG TABLET PO PRN ×2 (01:27→13:12)
[2019-11-20] MEDS: METOCLOPRAMIDE HCL 10 MG TABLET (FP) PO SCH ×3 (06:20→17:23)
[2019-11-20] MEDS: ACETAMINOPHEN 325 MG TABLET (FP) PO SCH ×3 (06:20→17:23)
[2019-11-20] MEDS ORDERED: PT OWN MED DRAWER 7, Y5N ONE ×2 (09:53→21:02)
[2019-11-20] MEDS: APIXABAN 5 MG TABLET PO SCH ×2 (10:01→21:43)
[2019-11-20] MEDS: AMINO ACIDS/PROTEIN HYDROLYS 30 ML LIQUID.PKT PO SCH ×2 (10:01→17:23)
[2019-11-20] MEDS: ZINC SULFATE 220 MG CAPSULE (FP) PO SCH (10:01)
[2019-11-20] MEDS: HYDROCORTISONE ACETATE 25 MG/SUPP.RECT RC SCH ×2 (10:01→21:43)
[2019-11-20] MEDS: CLOTRIMAZOLE/BETAMET DIPROP 15 GM TUBE TP SCH ×2 (10:01→21:44)
--- NOTE | 2019-11-20 11:09 | PN ---
Progress Note, Physician Chief Complaint: Right knee wound infection History of Present Illness: NAD On Wound vac Pain better controlled with Tramadol Right foot drop- is doing ROM exercises Seen by Orthopedic surgery yesterday, wound dressing changed On IV abx - Current Medication List Current Medications: Active Medications Acetaminophen (Tylenol -) 650 mg PO Q6HPO [facility] Last Admin: 11/20/19 06:20 Dose: 650 mg Documented by: Albuterol Sulfate (Ventolin Hfa Inhaler -) 2 puff IH Q4H PRN PRN Reason: SHORT OF BREATH/WHEEZING Amino Acids (Prosource No Carb Liquid Pkt) 30 ml PO BID@0800,1730 [facility] Last Admin: 11/20/19 10:01 Dose: 30 ml Documented by: Apixaban (Eliquis -) 5 mg PO BID [facility] Last Admin: 11/20/19 10:01 Dose: 5 mg Documented by: Atorvastatin Calcium (Lipitor -) 10 mg PO HS [facility] Last Admin: 11/19/19 22:06 Dose: 10 mg Documented by: Clotrimazole (Lotrisone Cream (Small Tube)) 1 applic TP BID [facility] Last Admin: 11/20/19 10:01 Dose: 1 applic Documented by: Docusate Sodium (Colace -) 300 mg PO HS [facility] Last Admin: 11/19/19 22:08 Dose: 300 mg Documented by: Hydrocortisone Acetate (Anusol Hc Suppository -) 25 mg RC BID [facility] Last Admin: 11/20/19 10:01 Dose: 25 mg Documented by: Vancomycin HCl (Vancomycin (Pre-Docked)) 1,000 mg in 250 mls @ 166.667 mls/hr IVPB DAILY@1300 [facility]; Protocol Last Admin: 11/19/19 13:19 Dose: 166.667 mls/hr Documented by: Melatonin (Melatonin) 3 mg PO HS PRN PRN Reason: INSOMNIA Last Admin: 11/19/19 23:21 Dose: 3 mg Documented by: Metoclopramide HCl (Reglan -) 10 mg PO TIDAC [facility] Last Admin: 11/20/19 10:00 Dose: 10 mg Documented by: Polyethylene Glycol (Miralax (For Daily Use) -) 17 gm PO DAILY [facility] Last Admin: 11/19/19 09:47 Dose: 17 gm Documented by: Tramadol HCl (Ultram -) 50 mg PO Q8H PRN PRN Reason: PAIN LEVEL 6-10 Last Admin: 11/20/19 01:27 Dose: 50 mg Documented by: Zinc Sulfate (Orazinc -) 220 mg PO DAILY@0800 [facility] Last Admin: 11/20/19 10:01 Dose: 220 mg Documented by: - Objective Vital Signs: Vital Signs Temperature 98.1 F 11/20/19 06:00 Pulse Rate 83 11/20/19 06:00 Respiratory Rate 20 11/20/19 06:00 Blood Pressure 139/68 11/20/19 06:00 O2 Sat by Pulse Oximetry (%) 95 11/19/19 21:00 Constitutional: Yes: Well Nourished, No Distress, Calm Cardiovascular: Yes: Regular Rate and Rhythm Respiratory: Yes: Regular, CTA Bilaterally Gastrointestinal: Yes: Normal Bowel Sounds, Soft Genitourinary: Yes: WNL Musculoskeletal: Yes: Muscle Weakness Extremities: Yes: Other (right foot drop) Edema: No Peripheral Pulses WNL: Yes Integumentary: Yes: Other (right knee wound vac) Wound/Incision: Yes: Dressing Dry and Intact Neurological: Yes: Alert, Oriented Psychiatric: Yes: Alert, Oriented Labs: CBC, BMP 11/18/19 06:25 11/19/19 05:45 INR, PTT INR 1.35 (0.83-1.09) H 11/12/19 13:41 Problem List - Problems (1) Right foot drop Assessment/Plan: -Physical therapy -Kerlix over the foot for pt to be able to flex and extend her foot 10 x Q1H -Nursing staff educated to stimulate the ankle by flexing and extending it during their visits in patients room. -OOBTC daily with knee immobilizer Problems reviewed: Yes Code(s): M21.371 - FOOT DROP, RIGHT FOOT (2) Surgical wound infection Assessment/Plan: -Last cultures + MRSA -ID consult -IV Vanco -Wound vac-to facilitate granulation tissue, changed by orthopedic surgery Problems reviewed: Yes Code(s): T81.49XA - INFECTION FOLLOWING A PROCEDURE, OTHER SURGICAL SITE, INIT (3) S/P total knee replacement Assessment/Plan: -Seen by orthopedic surgery -Right knee immobilizer -Wound vac -Pain management with tylenol + tramadol Problems reviewed: Yes Code(s): Z96.659 - PRESENCE OF UNSPECIFIED ARTIFICIAL KNEE JOINT Qualifiers: (4) Hypertension Assessment/Plan: -Low sodium diet Problems reviewed: Yes Code(s): I10 - ESSENTIAL (PRIMARY) HYPERTENSION (5) History of DVT (deep vein thrombosis) Assessment/Plan: In right popliteal and posterior tibial vein -Continue Eliquis 5 mg po bid Problems reviewed: Yes Code(s): Z86.718 - PERSONAL HISTORY OF OTHER VENOUS THROMBOSIS AND EMBOLISM (6) Constipation Assessment/Plan: -Colace + Miralax -Add Senna 2 tabs HS Problems reviewed: Yes Code(s): K59.00 - CONSTIPATION, UNSPECIFIED (7) Hemorrhoids Assessment/Plan: -Annusol supp BID Problems reviewed: Yes Code(s): K64.9 - UNSPECIFIED HEMORRHOIDS Assessment/Plan See problem list Left message for Son Masoud to call back.
[2019-11-20] MEDS: POLYETHYLENE GLYCOL 3350 119 GM BTL PO SCH (12:02)
[2019-11-20] MEDS: VANCOMYCIN 1 GRAM (PRE-DOCKED) 1,000 MG/250 ML BAG IVPB SCH (12:06)
[2019-11-20] MEDS ORDERED: SENNOSIDES 8.6MG TABLET (FP) PO PRN (12:31)
--- NOTE | 2019-11-20 13:36 | PN ---
Progress Note, Physician History of Present Illness: stable no new issues wound vac present - Current Medication List Current Medications: Active Medications Acetaminophen (Tylenol -) 650 mg PO Q6HPO [facility] Last Admin: 11/20/19 12:02 Dose: 650 mg Documented by: Albuterol Sulfate (Ventolin Hfa Inhaler -) 2 puff IH Q4H PRN PRN Reason: SHORT OF BREATH/WHEEZING Amino Acids (Prosource No Carb Liquid Pkt) 30 ml PO BID@0800,1730 [facility] Last Admin: 11/20/19 10:01 Dose: 30 ml Documented by: Apixaban (Eliquis -) 5 mg PO BID [facility] Last Admin: 11/20/19 10:01 Dose: 5 mg Documented by: Atorvastatin Calcium (Lipitor -) 10 mg PO [facility] Last Admin: 11/19/19 22:06 Dose: 10 mg Documented by: Clotrimazole (Lotrisone Cream (Small Tube)) 1 applic TP BID [facility] Last Admin: 11/20/19 10:01 Dose: 1 applic Documented by: Docusate Sodium (Colace -) 300 mg PO [facility] Last Admin: 11/19/19 22:08 Dose: 300 mg Documented by: Emollient Ointment (Aquaphor -) 1 applic TP BID [facility] Hydrocortisone Acetate (Anusol Hc Suppository -) 25 mg RC BID [facility] Last Admin: 11/20/19 10:01 Dose: 25 mg Documented by: Vancomycin HCl (Vancomycin (Pre-Docked)) 1,000 mg in 250 mls @ 166.667 mls/hr IVPB DAILY@1300 [facility]; Protocol Last Admin: 11/20/19 12:06 Dose: 166.667 mls/hr Documented by: Melatonin (Melatonin) 3 mg PO HS PRN PRN Reason: INSOMNIA Last Admin: 11/19/19 23:21 Dose: 3 mg Documented by: Metoclopramide HCl (Reglan -) 10 mg PO TIDAC [facility] Last Admin: 11/20/19 10:00 Dose: 10 mg Documented by: Polyethylene Glycol (Miralax (For Daily Use) -) 17 gm PO DAILY [facility] Last Admin: 11/20/19 12:02 Dose: 17 gm Documented by: Senna (Senna -) 2 tab PO HS PRN PRN Reason: CONSTIPATION Tramadol HCl (Ultram -) 50 mg PO Q8H PRN PRN Reason: PAIN LEVEL 6-10 Last Admin: 11/20/19 13:12 Dose: 50 mg Documented by: Zinc Sulfate (Orazinc -) 220 mg PO DAILY@0800 [facility] Last Admin: 11/20/19 10:01 Dose: 220 mg Documented by: - Objective Vital Signs: Vital Signs Temperature 98.1 F 11/20/19 06:00 Pulse Rate 83 11/20/19 06:00 Respiratory Rate 20 11/20/19 06:00 Blood Pressure 139/68 11/20/19 06:00 O2 Sat by Pulse Oximetry (%) 95 11/19/19 21:00 Constitutional: Yes: No Distress, Calm Cardiovascular: Yes: S1, S2 Respiratory: Yes: Regular, CTA Bilaterally Gastrointestinal: Yes: Normal Bowel Sounds Musculoskeletal: Yes: WNL Extremities: Yes: Other Wound/Incision: Yes: Dressing Dry and Intact, Other (wound vac) Neurological: Yes: Alert, Oriented Psychiatric: Yes: Alert, Oriented Labs: CBC, BMP 11/18/19 06:25 11/19/19 05:45 INR, PTT INR 1.35 (0.83-1.09) H 11/12/19 13:41 Assessment/Plan Problem List - Problems (1) History of DVT (deep vein thrombosis) Code(s): Z86.718 - PERSONAL HISTORY OF OTHER VENOUS THROMBOSIS AND EMBOLISM (2) Right foot drop Code(s): M21.371 - FOOT DROP, RIGHT FOOT (3) Surgical wound infection Code(s): T81.49XA - INFECTION FOLLOWING A PROCEDURE, OTHER SURGICAL SITE, INIT (4) S/P total knee replacement Code(s): Z96.659 - PRESENCE OF UNSPECIFIED ARTIFICIAL KNEE JOINT Qualifiers: (5) COVID-19 Code(s): U07.1 - COVID POSITIVE (6) Hypertension Code(s): I10 - ESSENTIAL (PRIMARY) HYPERTENSION (7) Inability to ambulate due to knee Code(s): R26.2 - DIFFICULTY IN WALKING, NOT ELSEWHERE CLASSIFIED (8) Yanet-prosthetic fracture around prosthetic knee Code(s): M97.8XXA - PERIPROSTH FRACTURE AROUND OTHER INTERNAL PROSTH JOINT, INIT; Z96.659 - PRESENCE OF UNSPECIFIED ARTIFICIAL KNEE JOINT (9) COPD (chronic obstructive pulmonary disease) Code(s): J44.9 - CHRONIC OBSTRUCTIVE PULMONARY DISEASE, UNSPECIFIED (10) History of revision of total knee arthroplasty Code(s): Z96.659 - PRESENCE OF UNSPECIFIED ARTIFICIAL KNEE JOINT Assessment/Plan 79 y.o. female with PMH of HTN, COPD, Rt pop DVT, COVID, s/p revision of RT TKR and debridements with tibial wound/hardware exposure and possible patellar rupture readmitted for further management Rt tibial wound infection s/p debridement +MRSA /wound vac Rt TKR s/p revisions Possible Rt patellar rupture continue current mgmt will await vanco level continue abx
[2019-11-20] MEDS: MINERAL OIL/PET HY-PHL TOPICAL OINTMENT 454 GM JAR TP SCH ×2 (15:00→21:44)
[2019-11-20] MEDS: ATORVASTATIN CA 10 MG TABLET (FP) PO SCH (21:43)
[2019-11-20] MEDS: DOCUSATE SODIUM 100 MG CAPSULE (FP) PO SCH (21:43)
[2019-11-21] MEDS: ACETAMINOPHEN 325 MG TABLET (FP) PO SCH ×5 (01:18→17:30)
[2019-11-21] MEDS: METOCLOPRAMIDE HCL 10 MG TABLET (FP) PO SCH ×3 (06:09→17:30)
[2019-11-21] MEDS: traMADol HCL 50 MG TABLET PO PRN ×2 (09:41→21:44)
[2019-11-21] MEDS: AMINO ACIDS/PROTEIN HYDROLYS 30 ML LIQUID.PKT PO SCH ×2 (09:42→17:31)
[2019-11-21] MEDS: POLYETHYLENE GLYCOL 3350 119 GM BTL PO SCH (09:43)
[2019-11-21] MEDS: APIXABAN 5 MG TABLET PO SCH ×2 (09:43→21:44)
[2019-11-21] MEDS: HYDROCORTISONE ACETATE 25 MG/SUPP.RECT RC SCH ×2 (09:44→21:43)
[2019-11-21] MEDS: ZINC SULFATE 220 MG CAPSULE (FP) PO SCH (09:44)
[2019-11-21] MEDS: CLOTRIMAZOLE/BETAMET DIPROP 15 GM TUBE TP SCH ×2 (09:46→21:44)
[2019-11-21] MEDS: MINERAL OIL/PET HY-PHL TOPICAL OINTMENT 454 GM JAR TP SCH ×2 (09:47→21:43)
--- NOTE | 2019-11-21 10:23 | PN ---
Progress Note, Physician Chief Complaint: Right knee wound infection History of Present Illness: NAD On Wound vac Pain better controlled with Tramadol Right foot drop- is doing ROM exercises Seen by Orthopedic surgery, wound dressing changed with + formation of granulation tissue On IV Vanco - Current Medication List Current Medications: Active Medications Acetaminophen (Tylenol -) 650 mg PO Q6HPO [facility] Last Admin: 11/21/19 06:09 Dose: Not Given Documented by: Albuterol Sulfate (Ventolin Hfa Inhaler -) 2 puff IH Q4H PRN PRN Reason: SHORT OF BREATH/WHEEZING Amino Acids (Prosource No Carb Liquid Pkt) 30 ml PO BID@0800,1730 [facility] Last Admin: 11/21/19 09:42 Dose: 30 ml Documented by: Apixaban (Eliquis -) 5 mg PO BID [facility] Last Admin: 11/21/19 09:43 Dose: 5 mg Documented by: Atorvastatin Calcium (Lipitor -) 10 mg PO HS [facility] Last Admin: 11/20/19 21:43 Dose: 10 mg Documented by: Clotrimazole (Lotrisone Cream (Small Tube)) 1 applic TP BID [facility] Last Admin: 11/21/19 09:46 Dose: 1 applic Documented by: Docusate Sodium (Colace -) [address] [facility] Last Admin: 11/20/19 21:43 Dose: 300 mg Documented by: Emollient Ointment (Aquaphor -) 1 applic TP BID [facility] Last Admin: 11/21/19 09:47 Dose: 1 applic Documented by: Hydrocortisone Acetate (Anusol Hc Suppository -) 25 mg RC BID [facility] Last Admin: 11/21/19 09:44 Dose: 25 mg Documented by: Vancomycin HCl (Vancomycin (Pre-Docked)) 1,000 mg in 250 mls @ 166.667 mls/hr IVPB DAILY@1300 [facility]; Protocol Last Admin: 11/20/19 12:06 Dose: 166.667 mls/hr Documented by: Melatonin (Melatonin) 3 mg PO HS PRN PRN Reason: INSOMNIA Last Admin: 11/19/19 23:21 Dose: 3 mg Documented by: Metoclopramide HCl (Reglan -) 10 mg PO TIDAC [facility] Last Admin: 11/21/19 06:09 Dose: 10 mg Documented by: Polyethylene Glycol (Miralax (For Daily Use) -) 17 gm PO DAILY [facility] Last Admin: 11/21/19 09:43 Dose: 17 gm Documented by: Senmirna (Senna -) 2 tab PO HS PRN PRN Reason: CONSTIPATION Tramadol HCl (Ultram -) 50 mg PO Q8H PRN PRN Reason: PAIN LEVEL 6-10 Last Admin: 11/21/19 09:41 Dose: 50 mg Documented by: Zinc Sulfate (Orazinc -) 220 mg PO DAILY@0800 [facility] Last Admin: 11/21/19 09:44 Dose: 220 mg Documented by: - Objective Vital Signs: Vital Signs Temperature 98.6 F 11/21/19 06:00 Pulse Rate 87 11/21/19 06:00 Respiratory Rate 20 11/21/19 06:00 Blood Pressure 155/76 11/21/19 06:00 O2 Sat by Pulse Oximetry (%) 95 11/20/19 21:00 Constitutional: Yes: Well Nourished, No Distress, Calm Cardiovascular: Yes: Regular Rate and Rhythm Respiratory: Yes: Regular, CTA Bilaterally Gastrointestinal: Yes: Normal Bowel Sounds, Soft, Abdomen, Obese Genitourinary: Yes: Incontinence Musculoskeletal: Yes: Muscle Weakness Extremities: Yes: WNL Edema: No Peripheral Pulses WNL: Yes Wound/Incision: Yes: Dressing Dry and Intact Neurological: Yes: Alert, Oriented Psychiatric: Yes: Alert, Oriented Labs: CBC, BMP 11/18/19 06:25 11/19/19 05:45 INR, PTT INR 1.35 (0.83-1.09) H 11/12/19 13:41 Problem List - Problems (1) Right foot drop Assessment/Plan: -Physical therapy -Kerlix over the foot for pt to be able to flex and extend her foot 10 x Q1H -Nursing staff educated to stimulate the ankle by flexing and extending it during their visits in patients room. -OOBTC daily with knee immobilizer Problems reviewed: Yes Code(s): M21.371 - FOOT DROP, RIGHT FOOT (2) Surgical wound infection Assessment/Plan: -Last cultures + MRSA -ID consult -IV Vanco -Wound vac-to facilitate granulation tissue, changed by orthopedic surgery Problems reviewed: Yes Code(s): T81.49XA - INFECTION FOLLOWING A PROCEDURE, OTHER SURGICAL SITE, INIT (3) S/P total knee replacement Assessment/Plan: -Seen by orthopedic surgery -Right knee immobilizer -Wound vac -Pain management with tylenol + tramadol Problems reviewed: Yes Code(s): Z96.659 - PRESENCE OF UNSPECIFIED ARTIFICIAL KNEE JOINT Qualifiers: (4) Hypertension Assessment/Plan: -Low sodium diet Problems reviewed: Yes Code(s): I10 - ESSENTIAL (PRIMARY) HYPERTENSION (5) History of DVT (deep vein thrombosis) Assessment/Plan: In right popliteal and posterior tibial vein -Continue Eliquis 5 mg po bid Problems reviewed: Yes Code(s): Z86.718 - PERSONAL HISTORY OF OTHER VENOUS THROMBOSIS AND EMBOLISM (6) Constipation Assessment/Plan: -Colace + Miralax -Senna 2 tabs HS Problems reviewed: Yes Code(s): K59.00 - CONSTIPATION, UNSPECIFIED (7) Hemorrhoids Assessment/Plan: -Annusol supp BID Problems reviewed: Yes Code(s): K64.9 - UNSPECIFIED HEMORRHOIDS Assessment/Plan See problem list
--- NOTE | 2019-11-21 12:36 | PN ---
Progress Note, Physician History of Present Illness: stable no new issues - Current Medication List Current Medications: Active Medications Acetaminophen (Tylenol -) 650 mg PO Q6HPO [facility] Last Admin: 11/21/19 11:24 Dose: 650 mg Documented by: Albuterol Sulfate (Ventolin Hfa Inhaler -) 2 puff IH Q4H PRN PRN Reason: SHORT OF BREATH/WHEEZING Amino Acids (Prosource No Carb Liquid Pkt) 30 ml PO BID@0800,1730 [facility] Last Admin: 11/21/19 09:42 Dose: 30 ml Documented by: Apixaban (Eliquis -) 5 mg PO BID [facility] Last Admin: 11/21/19 09:43 Dose: 5 mg Documented by: Atorvastatin Calcium (Lipitor -) 10 mg PO HS [facility] Last Admin: 11/20/19 21:43 Dose: 10 mg Documented by: Clotrimazole (Lotrisone Cream (Small Tube)) 1 applic TP BID [facility] Last Admin: 11/21/19 09:46 Dose: 1 applic Documented by: Docusate Sodium (Colace -) 300 mg PO [facility] Last Admin: 11/20/19 21:43 Dose: 300 mg Documented by: Emollient Ointment (Aquaphor -) 1 applic TP BID [facility] Last Admin: 11/21/19 09:47 Dose: 1 applic Documented by: Hydrocortisone Acetate (Anusol Hc Suppository -) 25 mg RC BID [facility] Last Admin: 11/21/19 09:44 Dose: 25 mg Documented by: Vancomycin HCl (Vancomycin (Pre-Docked)) 1,000 mg in 250 mls @ 166.667 mls/hr IVPB DAILY@1300 [facility]; Protocol Last Admin: 11/20/19 12:06 Dose: 166.667 mls/hr Documented by: Melatonin (Melatonin) 3 mg PO HS PRN PRN Reason: INSOMNIA Last Admin: 11/19/19 23:21 Dose: 3 mg Documented by: Metoclopramide HCl (Reglan -) 10 mg PO TIDAC [facility] Last Admin: 11/21/19 11:26 Dose: 10 mg Documented by: Polyethylene Glycol (Miralax (For Daily Use) -) 17 gm PO DAILY [facility] Last Admin: 11/21/19 09:43 Dose: 17 gm Documented by: Senna (Senna -) 2 tab PO HS PRN PRN Reason: CONSTIPATION Tramadol HCl (Ultram -) 100 mg PO Q8H PRN PRN Reason: PAIN LEVEL 6-10 Zinc Sulfate (Orazinc -) 220 mg PO DAILY@0800 [facility] Last Admin: 11/21/19 09:44 Dose: 220 mg Documented by: - Objective Vital Signs: Vital Signs Temperature 98.6 F 11/21/19 06:00 Pulse Rate 87 11/21/19 06:00 Respiratory Rate 20 11/21/19 06:00 Blood Pressure 155/76 11/21/19 06:00 O2 Sat by Pulse Oximetry (%) 95 11/20/19 21:00 Constitutional: Yes: No Distress, Calm Cardiovascular: Yes: S1, S2 Respiratory: Yes: Regular, CTA Bilaterally Gastrointestinal: Yes: Normal Bowel Sounds, Soft Musculoskeletal: Yes: WNL Extremities: Yes: Other Wound/Incision: Yes: Other (vacuum) Neurological: Yes: Alert, Oriented Psychiatric: Yes: Alert, Oriented Labs: CBC, BMP 11/18/19 06:25 11/19/19 05:45 INR, PTT INR 1.35 (0.83-1.09) H 11/12/19 13:41 Assessment/Plan Problem List - Problems (1) History of DVT (deep vein thrombosis) Code(s): Z86.718 - PERSONAL HISTORY OF OTHER VENOUS THROMBOSIS AND EMBOLISM (2) Right foot drop Code(s): M21.371 - FOOT DROP, RIGHT FOOT (3) Surgical wound infection Code(s): T81.49XA - INFECTION FOLLOWING A PROCEDURE, OTHER SURGICAL SITE, INIT (4) S/P total knee replacement Code(s): Z96.659 - PRESENCE OF UNSPECIFIED ARTIFICIAL KNEE JOINT Qualifiers: (5) COVID-19 Code(s): U07.1 - COVID POSITIVE (6) Hypertension Code(s): I10 - ESSENTIAL (PRIMARY) HYPERTENSION (7) Inability to ambulate due to knee Code(s): R26.2 - DIFFICULTY IN WALKING, NOT ELSEWHERE CLASSIFIED (8) Yanet-prosthetic fracture around prosthetic knee Code(s): M97.8XXA - PERIPROSTH FRACTURE AROUND OTHER INTERNAL PROSTH JOINT, INIT; Z96.659 - PRESENCE OF UNSPECIFIED ARTIFICIAL KNEE JOINT (9) COPD (chronic obstructive pulmonary disease) Code(s): J44.9 - CHRONIC OBSTRUCTIVE PULMONARY DISEASE, UNSPECIFIED (10) History of revision of total knee arthroplasty Code(s): Z96.659 - PRESENCE OF UNSPECIFIED ARTIFICIAL KNEE JOINT Assessment/Plan 79 y.o. female with PMH of HTN, COPD, Rt pop DVT, COVID, s/p revision of RT TKR and debridements with tibial wound/hardware exposure and possible patellar rupture readmitted for further management Rt tibial wound infection s/p debridement +MRSA /wound vac Rt TKR s/p revisions Possible Rt patellar rupture continue current mgmt woundcare continue abx rest as per the team
[2019-11-21] MEDS: VANCOMYCIN 1 GRAM (PRE-DOCKED) 1,000 MG/250 ML BAG IVPB SCH (13:11)
[2019-11-21] MEDS ORDERED: PT OWN MED DRAWER 7, Y5N ONE ×3 (13:44→22:31)
[2019-11-21] MEDS: DOCUSATE SODIUM 100 MG CAPSULE (FP) PO SCH (21:44)
[2019-11-21] MEDS: ATORVASTATIN CA 10 MG TABLET (FP) PO SCH (21:44)
[2019-11-21] MEDS: MELATONIN 1 MG TABLET PO PRN (22:53)
[2019-11-22] MEDS: ACETAMINOPHEN 325 MG TABLET (FP) PO SCH ×4 (00:44→17:20)
[2019-11-22] MEDS: METOCLOPRAMIDE HCL 10 MG TABLET (FP) PO SCH ×3 (06:01→17:20)
[2019-11-22] MEDS: AMINO ACIDS/PROTEIN HYDROLYS 30 ML LIQUID.PKT PO SCH ×2 (09:59→17:19)
[2019-11-22] MEDS: ZINC SULFATE 220 MG CAPSULE (FP) PO SCH (10:00)
[2019-11-22] MEDS: APIXABAN 5 MG TABLET PO SCH ×2 (10:01→22:08)
[2019-11-22] MEDS: HYDROCORTISONE ACETATE 25 MG/SUPP.RECT RC SCH ×2 (10:01→22:09)
[2019-11-22] MEDS: POLYETHYLENE GLYCOL 3350 119 GM BTL PO SCH ×3 (10:06→22:08)
[2019-11-22] MEDS: CLOTRIMAZOLE/BETAMET DIPROP 15 GM TUBE TP SCH ×2 (10:10→22:09)
--- NOTE | 2019-11-22 10:12 | PN ---
Progress Note, Physician Chief Complaint: Right knee wound infection History of Present Illness: NAD On Wound vac Pain better controlled with Tramadol Right foot drop- is doing ROM exercises Seen by Orthopedic surgery, wound dressing changed with + formation of granulation tissue On IV Vanco Had small BM last evening feels nauseous today - Current Medication List Current Medications: Active Medications Acetaminophen (Tylenol -) 650 mg PO Q6HPO [facility] Last Admin: 11/22/19 06:01 Dose: 650 mg Documented by: Albuterol Sulfate (Ventolin Hfa Inhaler -) 2 puff IH Q4H PRN PRN Reason: SHORT OF BREATH/WHEEZING Amino Acids (Prosource No Carb Liquid Pkt) 30 ml PO BID@0800,1730 [facility] Last Admin: 11/21/19 17:31 Dose: Not Given Documented by: Apixaban (Eliquis -) 5 mg PO BID [facility] Last Admin: 11/21/19 21:44 Dose: 5 mg Documented by: Atorvastatin Calcium (Lipitor -) 10 mg PO HS [facility] Last Admin: 11/21/19 21:44 Dose: 10 mg Documented by: Clotrimazole (Lotrisone Cream (Small Tube)) 1 applic TP BID [facility] Last Admin: 11/21/19 21:44 Dose: 1 applic Documented by: Docusate Sodium (Colace -) 300 mg PO [facility] Last Admin: 11/21/19 21:44 Dose: 300 mg Documented by: Emollient Ointment (Aquaphor -) 1 applic TP BID [facility] Last Admin: 11/21/19 21:43 Dose: 1 applic Documented by: Hydrocortisone Acetate (Anusol Hc Suppository -) 25 mg RC BID [facility] Last Admin: 11/21/19 21:43 Dose: 25 mg Documented by: Vancomycin HCl (Vancomycin (Pre-Docked)) 1,000 mg in 250 mls @ 166.667 mls/hr IVPB DAILY@1300 [facility]; Protocol Last Admin: 11/21/19 13:11 Dose: 166.667 mls/hr Documented by: Melatonin (Melatonin) 3 mg PO HS PRN PRN Reason: INSOMNIA Last Admin: 11/21/19 22:53 Dose: 3 mg Documented by: Metoclopramide HCl (Reglan -) 10 mg PO TIDAC [facility] Last Admin: 11/22/19 06:01 Dose: 10 mg Documented by: Polyethylene Glycol (Miralax (For Daily Use) -) 17 gm PO DAILY [facility] Last Admin: 11/21/19 09:43 Dose: 17 gm Documented by: Senna (Senna -) 2 tab PO HS PRN PRN Reason: CONSTIPATION Tramadol HCl (Ultram -) 100 mg PO Q8H PRN PRN Reason: PAIN LEVEL 6-10 Last Admin: 11/21/19 21:44 Dose: 100 mg Documented by: Zinc Sulfate (Orazinc -) 220 mg PO DAILY@0800 [facility] Last Admin: 11/21/19 09:44 Dose: 220 mg Documented by: - Objective Vital Signs: Vital Signs Temperature 98 F 11/22/19 06:00 Pulse Rate 99 H 11/22/19 06:00 Respiratory Rate 20 11/22/19 06:00 Blood Pressure 116/65 11/22/19 06:00 O2 Sat by Pulse Oximetry (%) 96 11/21/19 21:00 Constitutional: Yes: Well Nourished, No Distress, Calm Cardiovascular: Yes: Regular Rate and Rhythm, Murmur (Grade III/) Respiratory: Yes: Regular, CTA Bilaterally Gastrointestinal: Yes: Normal Bowel Sounds, Soft, Abdomen, Obese Genitourinary: Yes: Incontinence Musculoskeletal: Yes: Muscle Weakness Extremities: Yes: Other (right knee knee immobilizer+ right foot drop) Edema: No Peripheral Pulses WNL: Yes Wound/Incision: Yes: Dressing Dry and Intact Neurological: Yes: Alert, Oriented Psychiatric: Yes: Alert, Oriented Labs: CBC, BMP 11/18/19 06:25 11/19/19 05:45 INR, PTT INR 1.35 (0.83-1.09) H 11/12/19 13:41 Problem List - Problems (1) Right foot drop Assessment/Plan: -Physical therapy -Kerlix over the foot for pt to be able to flex and extend her foot 10 x Q1H -Nursing staff educated to stimulate the ankle by flexing and extending it during their visits in patients room. -OOBTC daily with knee immobilizer Problems reviewed: Yes Code(s): M21.371 - FOOT DROP, RIGHT FOOT (2) Surgical wound infection Assessment/Plan: -Last cultures + MRSA -ID consult -IV Vanco -Wound vac-to facilitate granulation tissue, changed by orthopedic surgery Problems reviewed: Yes Code(s): T81.49XA - INFECTION FOLLOWING A PROCEDURE, OTHER SURGICAL SITE, INIT (3) S/P total knee replacement Assessment/Plan: -Seen by orthopedic surgery -WBAT with Right knee immobilizer -No right knee ROM -Wound vac -Pain management with tylenol + tramadol Problems reviewed: Yes Code(s): Z96.659 - PRESENCE OF UNSPECIFIED ARTIFICIAL KNEE JOINT Qualifiers: (4) Hypertension Assessment/Plan: -Low sodium diet Problems reviewed: Yes Code(s): I10 - ESSENTIAL (PRIMARY) HYPERTENSION (5) History of DVT (deep vein thrombosis) Assessment/Plan: In right popliteal and posterior tibial vein -Continue Eliquis 5 mg po bid Problems reviewed: Yes Code(s): Z86.718 - PERSONAL HISTORY OF OTHER VENOUS THROMBOSIS AND EMBOLISM (6) Constipation Assessment/Plan: -Colace 300 mg po hs -Miralax increase to TID -Senna 2 tabs HS Problems reviewed: Yes Code(s): K59.00 - CONSTIPATION, UNSPECIFIED (7) Hemorrhoids Assessment/Plan: -Annusol supp BID Problems reviewed: Yes Code(s): K64.9 - UNSPECIFIED HEMORRHOIDS Assessment/Plan See problem list
[2019-11-22] MEDS ORDERED: PT OWN MED DRAWER 7, Y5N ONE ×3 (11:00→20:55)
[2019-11-22] MEDS: MINERAL OIL/PET HY-PHL TOPICAL OINTMENT 454 GM JAR TP SCH ×2 (11:47→22:09)
--- NOTE | 2019-11-22 11:58 | PN ---
Progress Note, Physician History of Present Illness: stable nauseous - Current Medication List Current Medications: Active Medications Acetaminophen (Tylenol -) 650 mg PO Q6HPO [facility] Last Admin: 11/22/19 11:47 Dose: 650 mg Documented by: Albuterol Sulfate (Ventolin Hfa Inhaler -) 2 puff IH Q4H PRN PRN Reason: SHORT OF BREATH/WHEEZING Amino Acids (Prosource No Carb Liquid Pkt) 30 ml PO BID@0800,1730 [facility] Last Admin: 11/22/19 09:59 Dose: 30 ml Documented by: Apixaban (Eliquis -) 5 mg PO BID [facility] Last Admin: 11/22/19 10:01 Dose: 5 mg Documented by: Atorvastatin Calcium (Lipitor -) 10 mg PO HS [facility] Last Admin: 11/21/19 21:44 Dose: 10 mg Documented by: Clotrimazole (Lotrisone Cream (Small Tube)) 1 applic TP BID [facility] Last Admin: 11/22/19 10:10 Dose: 1 applic Documented by: Docusate Sodium (Colace -) 300 mg PO HS [facility] Last Admin: 11/21/19 21:44 Dose: 300 mg Documented by: Emollient Ointment (Aquaphor -) 1 applic TP BID [facility] Last Admin: 11/22/19 11:47 Dose: 1 applic Documented by: Hydrocortisone Acetate (Anusol Hc Suppository -) 25 mg RC BID [facility] Last Admin: 11/22/19 10:01 Dose: 25 mg Documented by: Vancomycin HCl (Vancomycin (Pre-Docked)) 1,000 mg in 250 mls @ 166.667 mls/hr IVPB DAILY@1300 [facility]; Protocol Last Admin: 11/21/19 13:11 Dose: 166.667 mls/hr Documented by: Melatonin (Melatonin) 3 mg PO HS PRN PRN Reason: INSOMNIA Last Admin: 11/21/19 22:53 Dose: 3 mg Documented by: Metoclopramide HCl (Reglan -) 10 mg PO TIDAC [facility] Last Admin: 11/22/19 11:46 Dose: 10 mg Documented by: Polyethylene Glycol (Miralax (For Daily Use) -) 17 gm PO TID [facility] Senna (Senna -) 2 tab PO HS PRN PRN Reason: CONSTIPATION Tramadol HCl (Ultram -) 100 mg PO Q8H PRN PRN Reason: PAIN LEVEL 6-10 Last Admin: 11/21/19 21:44 Dose: 100 mg Documented by: Zinc Sulfate (Orazinc -) 220 mg PO DAILY@0800 [facility] Last Admin: 11/22/19 10:00 Dose: 220 mg Documented by: - Objective Vital Signs: Vital Signs Temperature 98.3 F 11/22/19 10:00 Pulse Rate 91 H 11/22/19 10:00 Respiratory Rate 18 11/22/19 10:00 Blood Pressure 140/70 11/22/19 10:00 O2 Sat by Pulse Oximetry (%) 96 11/21/19 21:00 Constitutional: Yes: No Distress, Calm Cardiovascular: Yes: S1, S2 Respiratory: Yes: Regular, CTA Bilaterally Gastrointestinal: Yes: Normal Bowel Sounds, Soft Musculoskeletal: Yes: WNL Extremities: Yes: Other Wound/Incision: Yes: Other (wound vac in place) Neurological: Yes: Alert, Oriented Labs: CBC, BMP 11/18/19 06:25 11/19/19 05:45 INR, PTT INR 1.35 (0.83-1.09) H 11/12/19 13:41 Assessment/Plan Problem List - Problems (1) History of DVT (deep vein thrombosis) Code(s): Z86.718 - PERSONAL HISTORY OF OTHER VENOUS THROMBOSIS AND EMBOLISM (2) Right foot drop Code(s): M21.371 - FOOT DROP, RIGHT FOOT (3) Surgical wound infection Code(s): T81.49XA - INFECTION FOLLOWING A PROCEDURE, OTHER SURGICAL SITE, INIT (4) S/P total knee replacement Code(s): Z96.659 - PRESENCE OF UNSPECIFIED ARTIFICIAL KNEE JOINT Qualifiers: (5) COVID-19 Code(s): U07.1 - COVID POSITIVE (6) Hypertension Code(s): I10 - ESSENTIAL (PRIMARY) HYPERTENSION (7) Inability to ambulate due to knee Code(s): R26.2 - DIFFICULTY IN WALKING, NOT ELSEWHERE CLASSIFIED (8) Yanet-prosthetic fracture around prosthetic knee Code(s): M97.8XXA - PERIPROSTH FRACTURE AROUND OTHER INTERNAL PROSTH JOINT, INIT; Z96.659 - PRESENCE OF UNSPECIFIED ARTIFICIAL KNEE JOINT (9) COPD (chronic obstructive pulmonary disease) Code(s): J44.9 - CHRONIC OBSTRUCTIVE PULMONARY DISEASE, UNSPECIFIED (10) History of revision of total knee arthroplasty Code(s): Z96.659 - PRESENCE OF UNSPECIFIED ARTIFICIAL KNEE JOINT Assessment/Plan 79 y.o. female with PMH of HTN, COPD, Rt pop DVT, COVID, s/p revision of RT TKR and debridements with tibial wound/hardware exposure and possible patellar rupture readmitted for further management Rt tibial wound infection s/p debridement +MRSA /wound vac Rt TKR s/p revisions Possible Rt patellar rupture continue current mgmt woundcare continue abx rest as per the team please check vanco trough
[2019-11-22] MEDS: VANCOMYCIN 1 GRAM (PRE-DOCKED) 1,000 MG/250 ML BAG IVPB SCH (13:11)
[2019-11-22] MEDS: traMADol HCL 50 MG TABLET PO PRN (14:35)
[2019-11-22] MEDS: DOCUSATE SODIUM 100 MG CAPSULE (FP) PO SCH (22:08)
[2019-11-22] MEDS: ATORVASTATIN CA 10 MG TABLET (FP) PO SCH (22:08)
[2019-11-23] MEDS: ACETAMINOPHEN 325 MG TABLET (FP) PO SCH ×5 (01:14→23:23)
[2019-11-23] MEDS: METOCLOPRAMIDE HCL 10 MG TABLET (FP) PO SCH ×3 (06:21→17:59)
[2019-11-23] MEDS: POLYETHYLENE GLYCOL 3350 119 GM BTL PO SCH ×3 (06:22→21:56)
[2019-11-23] MEDS ORDERED: PT OWN MED DRAWER 7, Y5N ONE ×2 (10:17→22:54)
[2019-11-23] MEDS: APIXABAN 5 MG TABLET PO SCH ×2 (10:33→21:55)
[2019-11-23] MEDS: ZINC SULFATE 220 MG CAPSULE (FP) PO SCH (10:33)
[2019-11-23] MEDS: AMINO ACIDS/PROTEIN HYDROLYS 30 ML LIQUID.PKT PO SCH ×2 (10:33→18:00)
[2019-11-23] MEDS: traMADol HCL 50 MG TABLET PO PRN ×2 (11:17→19:45)
--- NOTE | 2019-11-23 11:58 | PN ---
Progress Note, Physician History of Present Illness: stable no new issues - Current Medication List Current Medications: Active Medications Acetaminophen (Tylenol -) 650 mg PO Q6HPO [facility] Last Admin: 11/23/19 06:21 Dose: 650 mg Documented by: Albuterol Sulfate (Ventolin Hfa Inhaler -) 2 puff IH Q4H PRN PRN Reason: SHORT OF BREATH/WHEEZING Amino Acids (Prosource No Carb Liquid Pkt) 30 ml PO BID@0800,1730 [facility] Last Admin: 11/23/19 10:33 Dose: 30 ml Documented by: Apixaban (Eliquis -) 5 mg PO BID [facility] Last Admin: 11/23/19 10:33 Dose: 5 mg Documented by: Atorvastatin Calcium (Lipitor -) 10 mg PO HS [facility] Last Admin: 11/22/19 22:08 Dose: 10 mg Documented by: Clotrimazole (Lotrisone Cream (Small Tube)) 1 applic TP BID [facility] Last Admin: 11/22/19 22:09 Dose: 1 applic Documented by: Docusate Sodium (Colace -) 300 mg PO HS [facility] Last Admin: 11/22/19 22:08 Dose: Not Given Documented by: Emollient Ointment (Aquaphor -) 1 applic TP BID [facility] Last Admin: 11/22/19 22:09 Dose: 1 applic Documented by: Hydrocortisone Acetate (Anusol Hc Suppository -) 25 mg RC BID [facility] Last Admin: 11/22/19 22:09 Dose: 25 mg Documented by: Vancomycin HCl (Vancomycin (Pre-Docked)) 1,000 mg in 250 mls @ 166.667 mls/hr IVPB DAILY@1300 [facility]; Protocol Last Admin: 11/22/19 13:11 Dose: 166.667 mls/hr Documented by: Melatonin (Melatonin) 3 mg PO HS PRN PRN Reason: INSOMNIA Last Admin: 11/21/19 22:53 Dose: 3 mg Documented by: Metoclopramide HCl (Reglan -) 10 mg PO TIDAC [facility] Last Admin: 11/23/19 10:33 Dose: 10 mg Documented by: Polyethylene Glycol (Miralax (For Daily Use) -) 17 gm PO TID [facility] Last Admin: 11/23/19 06:22 Dose: Not Given Documented by: Senna (Senna -) 2 tab PO HS PRN PRN Reason: CONSTIPATION Tramadol HCl (Ultram -) 100 mg PO Q8H PRN PRN Reason: PAIN LEVEL 6-10 Last Admin: 11/23/19 11:17 Dose: 100 mg Documented by: Zinc Sulfate (Orazinc -) 220 mg PO DAILY@0800 [facility] Last Admin: 11/23/19 10:33 Dose: 220 mg Documented by: - Objective Vital Signs: Vital Signs Temperature 97.5 F L 11/23/19 10:00 Pulse Rate 90 11/23/19 10:00 Respiratory Rate 18 11/23/19 10:00 Blood Pressure 139/71 11/23/19 10:00 O2 Sat by Pulse Oximetry (%) 95 11/22/19 21:00 Constitutional: Yes: No Distress, Calm Cardiovascular: Yes: S1, S2 Respiratory: Yes: Regular, CTA Bilaterally Gastrointestinal: Yes: Normal Bowel Sounds, Soft Musculoskeletal: Yes: WNL Extremities: Yes: Other Neurological: Yes: Alert, Oriented Psychiatric: Yes: Alert, Oriented Labs: CBC, BMP 11/18/19 06:25 11/19/19 05:45 INR, PTT INR 1.35 (0.83-1.09) H 11/12/19 13:41 Assessment/Plan Problem List - Problems (1) History of DVT (deep vein thrombosis) Code(s): Z86.718 - PERSONAL HISTORY OF OTHER VENOUS THROMBOSIS AND EMBOLISM (2) Right foot drop Code(s): M21.371 - FOOT DROP, RIGHT FOOT (3) Surgical wound infection Code(s): T81.49XA - INFECTION FOLLOWING A PROCEDURE, OTHER SURGICAL SITE, INIT (4) S/P total knee replacement Code(s): Z96.659 - PRESENCE OF UNSPECIFIED ARTIFICIAL KNEE JOINT Qualifiers: (5) COVID-19 Code(s): U07.1 - COVID POSITIVE (6) Hypertension Code(s): I10 - ESSENTIAL (PRIMARY) HYPERTENSION (7) Inability to ambulate due to knee Code(s): R26.2 - DIFFICULTY IN WALKING, NOT ELSEWHERE CLASSIFIED (8) Yanet-prosthetic fracture around prosthetic knee Code(s): M97.8XXA - PERIPROSTH FRACTURE AROUND OTHER INTERNAL PROSTH JOINT, INIT; Z96.659 - PRESENCE OF UNSPECIFIED ARTIFICIAL KNEE JOINT (9) COPD (chronic obstructive pulmonary disease) Code(s): J44.9 - CHRONIC OBSTRUCTIVE PULMONARY DISEASE, UNSPECIFIED (10) History of revision of total knee arthroplasty Code(s): Z96.659 - PRESENCE OF UNSPECIFIED ARTIFICIAL KNEE JOINT Assessment/Plan 79 y.o. female with PMH of HTN, COPD, Rt pop DVT, COVID, s/p revision of RT TKR and debridements with tibial wound/hardware exposure and possible patellar rupture readmitted for further management Rt tibial wound infection s/p debridement +MRSA /wound vac Rt TKR s/p revisions Possible Rt patellar rupture continue current mgmt wound care continue abx rest as per the team please check vanco trough
--- NOTE | 2019-11-23 12:04 | PN ---
Progress Note (short form) - Note Progress Note: 79F s/p complex revision right total knee replacement/reconstruction 08/30/19 now p/w soft tissue breakdown and wound overlying right tibial tubercle. No significant change since prior assessment 11/19/2019. Pain well controlled at present. No acute events overnight. Pt. denies overnight history of headaches, chest pain, shortness of breath, nausea, vomiting, chills, & sweats. (+) Voiding; (+) Flatus; (+) BM. Pt. is receiving PROM R ankle (d/t to foot drop) to mitigate risk for Achilles contracture. (+) R heel offloaded on rolled towel. Custom function AFO & offloading night time AFO splints at bedside. (+) RLE knee immobilizer in place. Pt. 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 All labs and vitals reviewed. PE: AAO x 3, NAD. R Knee: Wound Vac dressing removed. Wound overlying tibial tubercle size 4.5cm (L) x 3cm (W) x 0.25cm deep as measured with ruler. No concerning signs of wound infection: no purulence, exudate, pus, malodor, infectious drainage, or surrounding erythema. Patellar ligament rupture unchanged (partial VS full- thickness indeterminate). Patient unable to straight-leg raise (but is also deconditioned). Patella has not proximalized. Unable to fully visualize ligament due to limited exposure. (+) Sero-sanguinous drainage through defect in patellar ligament. (+) Continued proliferation of granulation tissue formation since last dressing change. No wound debridement necessary. Tibial tubercle screw minimally exposed; almost completely overgrown with granulation tissue. No erythema involving skin margins or surrounding soft tissue. No nahomi-wound nor nahomi- articular signs of infection or inflammation. Wound vac re-applied. Knee immobilizer re-applied. RLE M: HF/KF/KE/ADF /; ADF/GTE 5 (I.E. foot drop). RLE S: Femoral, Saphenous, Lateral Sural, Tibial Nerves 2/2; Superficial Peroneal Nerve 1/2; Deep Peroneal Nerve 0/2. A/P: 79F s/p complex revision right total knee replacement/reconstruction 08/30/19 now p/w soft tissue breakdown and wound overlying right tibial tubercle. -Pt. to remain in house for wound care. -Despite new complication of patellar ligament rupture, wound care goal remains the same: achieve successful wound healing. It is possible that vac-stimulated drainage of fluid via the patellar ligament rupture may inhibit granulation tissue formation. For this reason, will ask Dr. Craft (plastic surgery service) to evaluate the patient's wound with me on Tuesday11/26/2019 for possible medial gastrocnemius flap coverage. Patellar ligament reconstruction can be addressed, if necessary at a later date. Patient can utilize a drop-lock knee brace once the wound has healed. -Will order Neurontin 100mg PO BID to mitigate neuralgic symptoms. -Foot drop discussed with Dr. Huang Mak; patient will follow-up on an outpatient basis for EMG study of right lower extremity. -Will order R knee [place] vs Drop-Lock brace. -Vac changes +/- bedside debridements q48-72 hours by surgical team only. -Pain control. -DVT PPx: -Chemical: Eliquis. -Mechanical: LLE SORAYA's, SCD's. -Incentive spirometry. -PT/OT/Rehab, OOBTC at least twice daily. -NO ROM RIGHT KNEE (due to patellar ligament rupture). -PT & Nursing PROM R ANKLE (DORSIFLEXION) OFTEN POSSIBLE TO STRETCH ACHILLES AND PREVENT EQUINUS CONTRACTURE. -WBAT RLE w/KNEE IMMOBILIZER ON. -Offload B/L heels w/rolled towels under ankles to minimize risk of heel ulcer formation. -R Ankle AFO splints as needed. -Continue antibiotics. -Care as per ID & primary medical teams. -Pt. seen and examined w/Fitz Pardo MD. -Will follow. Barron Pardo MD (Orthopaedic Surgery).
[2019-11-23] MEDS: VANCOMYCIN 1 GRAM (PRE-DOCKED) 1,000 MG/250 ML BAG IVPB SCH (13:11)
[2019-11-23] MEDS: MINERAL OIL/PET HY-PHL TOPICAL OINTMENT 454 GM JAR TP SCH ×2 (13:12→21:55)
[2019-11-23] MEDS: HYDROCORTISONE ACETATE 25 MG/SUPP.RECT RC SCH ×2 (13:12→21:56)
[2019-11-23] MEDS: CLOTRIMAZOLE/BETAMET DIPROP 15 GM TUBE TP SCH ×2 (13:12→21:55)
[2019-11-23] MEDS: GABAPENTIN 100 MG CAPSULE PO SCH ×2 (13:13→21:55)
[2019-11-23] MEDS: ATORVASTATIN CA 10 MG TABLET (FP) PO SCH (21:55)
[2019-11-23] MEDS: DOCUSATE SODIUM 100 MG CAPSULE (FP) PO SCH (21:56)
[2019-11-23] MEDS: MELATONIN 1 MG TABLET PO PRN (23:23)
[2019-11-24] MEDS: METOCLOPRAMIDE HCL 10 MG TABLET (FP) PO SCH ×3 (06:24→17:33)
[2019-11-24] MEDS: ACETAMINOPHEN 325 MG TABLET (FP) PO SCH ×3 (06:24→17:33)
[2019-11-24] MEDS: POLYETHYLENE GLYCOL 3350 119 GM BTL PO SCH ×3 (06:25→21:23)
[2019-11-24] MEDS: AMINO ACIDS/PROTEIN HYDROLYS 30 ML LIQUID.PKT PO SCH ×2 (09:45→17:33)
[2019-11-24] MEDS: ZINC SULFATE 220 MG CAPSULE (FP) PO SCH (09:45)
[2019-11-24] MEDS: APIXABAN 5 MG TABLET PO SCH ×2 (09:46→21:23)
[2019-11-24] MEDS: MINERAL OIL/PET HY-PHL TOPICAL OINTMENT 454 GM JAR TP SCH ×2 (09:46→21:23)
[2019-11-24] MEDS: GABAPENTIN 100 MG CAPSULE PO SCH ×2 (09:46→21:23)
[2019-11-24] MEDS: CLOTRIMAZOLE/BETAMET DIPROP 15 GM TUBE TP SCH ×2 (09:47→21:23)
--- NOTE | 2019-11-24 10:12 | PN ---
Progress Note, Physician Chief Complaint: AWAKE ALERT DENIES CHEST PAIN OR SOB EVENTS AND NOTES REVIEWED - Current Medication List Current Medications: Active Medications Acetaminophen (Tylenol -) 650 mg PO Q6HPO [facility] Last Admin: 11/24/19 06:24 Dose: 650 mg Documented by: Albuterol Sulfate (Ventolin Hfa Inhaler -) 2 puff IH Q4H PRN PRN Reason: SHORT OF BREATH/WHEEZING Amino Acids (Prosource No Carb Liquid Pkt) 30 ml PO BID@0800,1730 [facility] Last Admin: 11/24/19 09:45 Dose: 30 ml Documented by: Apixaban (Eliquis -) 5 mg PO BID [facility] Last Admin: 11/24/19 09:46 Dose: 5 mg Documented by: Atorvastatin Calcium (Lipitor -) 10 mg PO HS [facility] Last Admin: 11/23/19 21:55 Dose: 10 mg Documented by: Clotrimazole (Lotrisone Cream (Small Tube)) 1 applic TP BID [facility] Last Admin: 11/24/19 09:47 Dose: 1 applic Documented by: Docusate Sodium (Colace -) 300 mg PO HS [facility] Last Admin: 11/23/19 21:56 Dose: Not Given Documented by: Emollient Ointment (Aquaphor -) 1 applic TP BID [facility] Last Admin: 11/24/19 09:46 Dose: 1 applic Documented by: Gabapentin (Neurontin -) 100 mg PO BID [facility] Last Admin: 11/24/19 09:46 Dose: 100 mg Documented by: Hydrocortisone Acetate (Anusol Hc Suppository -) 25 mg RC BID [facility] Last Admin: 11/23/19 21:56 Dose: 25 mg Documented by: Vancomycin HCl (Vancomycin (Pre-Docked)) 1,000 mg in 250 mls @ 166.667 mls/hr IVPB DAILY@1300 [facility]; Protocol Last Admin: 11/23/19 13:11 Dose: 166.667 mls/hr Documented by: Melatonin (Melatonin) 3 mg PO HS PRN PRN Reason: INSOMNIA Last Admin: 11/23/19 23:23 Dose: 3 mg Documented by: Metoclopramide HCl (Reglan -) 10 mg PO TIDAC [facility] Last Admin: 11/24/19 06:24 Dose: 10 mg Documented by: Polyethylene Glycol (Miralax (For Daily Use) -) 17 gm PO TID [facility] Last Admin: 11/24/19 06:25 Dose: Not Given Documented by: Senna (Senna -) 2 tab PO HS PRN PRN Reason: CONSTIPATION Tramadol HCl (Ultram -) 100 mg PO Q8H PRN PRN Reason: PAIN LEVEL 6-10 Last Admin: 11/23/19 19:45 Dose: 100 mg Documented by: Zinc Sulfate (Orazinc -) 220 mg PO DAILY@0800 [facility] Last Admin: 11/24/19 09:45 Dose: 220 mg Documented by: - Objective Vital Signs: Vital Signs Temperature 97.5 F L 11/24/19 06:55 Pulse Rate 72 11/24/19 06:55 Respiratory Rate 20 11/24/19 06:55 Blood Pressure 128/72 11/24/19 06:55 O2 Sat by Pulse Oximetry (%) 96 11/23/19 21:00 Constitutional: Yes: No Distress Cardiovascular: Yes: WNL Respiratory: Yes: CTA Bilaterally Gastrointestinal: Yes: Soft Genitourinary: Yes: Other Musculoskeletal: Yes: Muscle Weakness Wound/Incision: Yes: Dressing Dry and Intact (RIGHT KNEE) Neurological: Yes: Alert ...Motor Strength: RLE Labs: CBC, BMP 11/18/19 06:25 11/19/19 05:45 INR, PTT INR 1.35 (0.83-1.09) H 11/12/19 13:41 Problem List - Problems (1) History of DVT (deep vein thrombosis) Code(s): Z86.718 - PERSONAL HISTORY OF OTHER VENOUS THROMBOSIS AND EMBOLISM (2) Right foot drop Code(s): M21.371 - FOOT DROP, RIGHT FOOT (3) Surgical wound infection Code(s): T81.49XA - INFECTION FOLLOWING A PROCEDURE, OTHER SURGICAL SITE, INIT (4) S/P total knee replacement Code(s): Z96.659 - PRESENCE OF UNSPECIFIED ARTIFICIAL KNEE JOINT Qualifiers: (5) History of revision of total knee arthroplasty Code(s): Z96.659 - PRESENCE OF UNSPECIFIED ARTIFICIAL KNEE JOINT Assessment/Plan PAIN CONTROL CONTINUE WRITTEN DVT ON ELIQUIS CONTINUE PT EVAL WITH ORTHOPEDICS, WILL NEED PLACEMENT TO SNF. FALL RISKS D/W PATIENT OOB TO CHAIR ASSIST NEEDED LABS REVIEWED
[2019-11-24] MEDS: HYDROCORTISONE ACETATE 25 MG/SUPP.RECT RC SCH ×2 (11:17→21:24)
[2019-11-24] MEDS: VANCOMYCIN 1 GRAM (PRE-DOCKED) 1,000 MG/250 ML BAG IVPB SCH (12:30)
[2019-11-24] MEDS ORDERED: PT OWN MED DRAWER 7, Y5N ONE ×2 (21:00→22:03)
[2019-11-24] MEDS: DOCUSATE SODIUM 100 MG CAPSULE (FP) PO SCH (21:23)
[2019-11-24] MEDS: ATORVASTATIN CA 10 MG TABLET (FP) PO SCH (21:23)
[2019-11-24] MEDS: MELATONIN 1 MG TABLET PO PRN (21:24)
[2019-11-25] MEDS: ACETAMINOPHEN 325 MG TABLET (FP) PO SCH ×5 (01:05→23:02)
[2019-11-25] MEDS: POLYETHYLENE GLYCOL 3350 119 GM BTL PO SCH ×3 (05:33→21:25)
[2019-11-25] MEDS: METOCLOPRAMIDE HCL 10 MG TABLET (FP) PO SCH ×3 (06:29→17:30)
[2019-11-25 07:34] LABS: HEMOGLOBIN 10.9 GM/dL (10.7-15.3); MCH 32.5 pg (25.7-33.7); MCHC 34.1 g/dl (32.0-36.0); MEAN CELL VOLUME 95.3 fl (80-96); MEAN PLT VOLUME 6.8 fl (7.5-11.1); PLATELET COUNT 292 K/MM3 (134-434); RBC 3.36 M/mm3 (3.60-5.2); RDW 14.6 % (11.6-15.6)
[2019-11-25 07:56] LABS: BLOOD UREA NITROGEN 19.6 mg/dL (7-18); CALCIUM 9.8 mg/dL (8.5-10.1); CREATININE 0.6 mg/dL (0.55-1.3); MAGNESIUM 1.9 mg/dL (1.8-2.4)
[2019-11-25] MEDS ORDERED: PT OWN MED DRAWER 7, Y5N ONE ×3 (08:57→21:33)
[2019-11-25] MEDS: AMINO ACIDS/PROTEIN HYDROLYS 30 ML LIQUID.PKT PO SCH ×2 (09:01→17:29)
[2019-11-25] MEDS: APIXABAN 5 MG TABLET PO SCH ×2 (09:01→21:24)
[2019-11-25] MEDS: ZINC SULFATE 220 MG CAPSULE (FP) PO SCH (09:01)
[2019-11-25] MEDS: GABAPENTIN 100 MG CAPSULE PO SCH ×2 (09:02→21:25)
[2019-11-25] MEDS: HYDROCORTISONE ACETATE 25 MG/SUPP.RECT RC SCH ×2 (09:02→21:25)
[2019-11-25] MEDS: CLOTRIMAZOLE/BETAMET DIPROP 15 GM TUBE TP SCH ×2 (09:02→21:24)
[2019-11-25] MEDS: MINERAL OIL/PET HY-PHL TOPICAL OINTMENT 454 GM JAR TP SCH ×2 (09:02→21:25)
--- NOTE | 2019-11-25 09:13 | PN ---
Progress Note, Physician History of Present Illness: stable no new issues - Current Medication List Current Medications: Active Medications Acetaminophen (Tylenol -) 650 mg PO Q6HPO [facility] Last Admin: 11/25/19 05:32 Dose: 650 mg Documented by: Albuterol Sulfate (Ventolin Hfa Inhaler -) 2 puff IH Q4H PRN PRN Reason: SHORT OF BREATH/WHEEZING Amino Acids (Prosource No Carb Liquid Pkt) 30 ml PO BID@0800,1730 [facility] Last Admin: 11/25/19 09:01 Dose: 30 ml Documented by: Apixaban (Eliquis -) 5 mg PO BID [facility] Last Admin: 11/25/19 09:01 Dose: 5 mg Documented by: Atorvastatin Calcium (Lipitor -) [address] [facility] Last Admin: 11/24/19 21:23 Dose: 10 mg Documented by: Clotrimazole (Lotrisone Cream (Small Tube)) 1 applic TP BID [facility] Last Admin: 11/25/19 09:02 Dose: 1 applic Documented by: Docusate Sodium (Colace -) 300 mg PO HS [facility] Last Admin: 11/24/19 21:23 Dose: 300 mg Documented by: Emollient Ointment (Aquaphor -) 1 applic TP BID [facility] Last Admin: 11/25/19 09:02 Dose: 1 applic Documented by: Gabapentin (Neurontin -) 100 mg PO BID [facility] Last Admin: 11/25/19 09:02 Dose: 100 mg Documented by: Hydrocortisone Acetate (Anusol Hc Suppository -) 25 mg RC BID [facility] Last Admin: 11/25/19 09:02 Dose: Not Given Documented by: Vancomycin HCl (Vancomycin (Pre-Docked)) 1,000 mg in 250 mls @ 166.667 mls/hr IVPB DAILY@1300 [facility]; Protocol Last Admin: 11/24/19 12:30 Dose: 166.667 mls/hr Documented by: Melatonin (Melatonin) 3 mg PO HS PRN PRN Reason: INSOMNIA Last Admin: 11/24/19 21:24 Dose: 3 mg Documented by: Metoclopramide HCl (Reglan -) 10 mg PO TIDAC [facility] Last Admin: 11/25/19 06:29 Dose: 10 mg Documented by: Polyethylene Glycol (Miralax (For Daily Use) -) 17 gm PO TID [facility] Last Admin: 11/25/19 05:33 Dose: Not Given Documented by: Senna (Senna -) 2 tab PO HS PRN PRN Reason: CONSTIPATION Tramadol HCl (Ultram -) 100 mg PO Q8H PRN PRN Reason: PAIN LEVEL 6-10 Last Admin: 11/23/19 19:45 Dose: 100 mg Documented by: Zinc Sulfate (Orazinc -) 220 mg PO DAILY@0800 [facility] Last Admin: 11/25/19 09:01 Dose: 220 mg Documented by: - Objective Vital Signs: Vital Signs Temperature 98.9 F 11/25/19 06:35 Pulse Rate 76 11/25/19 06:35 Respiratory Rate 20 11/25/19 06:35 Blood Pressure 133/63 11/25/19 06:35 O2 Sat by Pulse Oximetry (%) 98 11/24/19 20:23 Constitutional: Yes: No Distress, Calm Cardiovascular: Yes: S1, S2 Respiratory: Yes: Regular, CTA Bilaterally Musculoskeletal: Yes: WNL Extremities: Yes: Other Neurological: Yes: Alert, Oriented Psychiatric: Yes: Alert, Oriented Labs: CBC, BMP 11/25/19 07:00 11/25/19 07:00 INR, PTT INR 1.35 (0.83-1.09) H 11/12/19 13:41 Assessment/Plan Problem List - Problems (1) History of DVT (deep vein thrombosis) Code(s): Z86.718 - PERSONAL HISTORY OF OTHER VENOUS THROMBOSIS AND EMBOLISM (2) Right foot drop Code(s): M21.371 - FOOT DROP, RIGHT FOOT (3) Surgical wound infection Code(s): T81.49XA - INFECTION FOLLOWING A PROCEDURE, OTHER SURGICAL SITE, INIT (4) S/P total knee replacement Code(s): Z96.659 - PRESENCE OF UNSPECIFIED ARTIFICIAL KNEE JOINT Qualifiers: (5) COVID-19 Code(s): U07.1 - COVID POSITIVE (6) Hypertension Code(s): I10 - ESSENTIAL (PRIMARY) HYPERTENSION (7) Inability to ambulate due to knee Code(s): R26.2 - DIFFICULTY IN WALKING, NOT ELSEWHERE CLASSIFIED (8) Yanet-prosthetic fracture around prosthetic knee Code(s): M97.8XXA - PERIPROSTH FRACTURE AROUND OTHER INTERNAL PROSTH JOINT, INIT; Z96.659 - PRESENCE OF UNSPECIFIED ARTIFICIAL KNEE JOINT (9) COPD (chronic obstructive pulmonary disease) Code(s): J44.9 - CHRONIC OBSTRUCTIVE PULMONARY DISEASE, UNSPECIFIED (10) History of revision of total knee arthroplasty Code(s): Z96.659 - PRESENCE OF UNSPECIFIED ARTIFICIAL KNEE JOINT Assessment/Plan 79 y.o. female with PMH of HTN, COPD, Rt pop DVT, COVID, s/p revision of RT TKR and debridements with tibial wound/hardware exposure and possible patellar rupture readmitted for further management Rt tibial wound infection s/p debridement +MRSA /wound vac Rt TKR s/p revisions Possible Rt patellar rupture continue current mgmt wound care continue abx rest as per the team vanco level send rest as per the team
[2019-11-25] MEDS: VANCOMYCIN 1 GRAM (PRE-DOCKED) 1,000 MG/250 ML BAG IVPB SCH (13:49)
--- NOTE | 2019-11-25 19:51 | PN ---
Progress Note, Physician Chief Complaint: AWAKE ALERT DENIES CHEST PAIN OR SOB EVENTS AND NOTES REVIEWED - Current Medication List Current Medications: Active Medications Acetaminophen (Tylenol -) 650 mg PO Q6HPO [facility] Last Admin: 11/25/19 17:29 Dose: 650 mg Documented by: Albuterol Sulfate (Ventolin Hfa Inhaler -) 2 puff IH Q4H PRN PRN Reason: SHORT OF BREATH/WHEEZING Amino Acids (Prosource No Carb Liquid Pkt) 30 ml PO BID@0800,1730 [facility] Last Admin: 11/25/19 17:29 Dose: 30 ml Documented by: Apixaban (Eliquis -) 5 mg PO BID [facility] Last Admin: 11/25/19 09:01 Dose: 5 mg Documented by: Atorvastatin Calcium (Lipitor -) 10 mg PO HS [facility] Last Admin: 11/24/19 21:23 Dose: 10 mg Documented by: Clotrimazole (Lotrisone Cream (Small Tube)) 1 applic TP BID [facility] Last Admin: 11/25/19 09:02 Dose: 1 applic Documented by: Docusate Sodium (Colace -) 300 mg PO HS [facility] Last Admin: 11/24/19 21:23 Dose: 300 mg Documented by: Emollient Ointment (Aquaphor -) 1 applic TP BID [facility] Last Admin: 11/25/19 09:02 Dose: 1 applic Documented by: Gabapentin (Neurontin -) 100 mg PO BID [facility] Last Admin: 11/25/19 09:02 Dose: 100 mg Documented by: Hydrocortisone Acetate (Anusol Hc Suppository -) 25 mg RC BID [facility] Last Admin: 11/25/19 09:02 Dose: Not Given Documented by: Vancomycin HCl (Vancomycin (Pre-Docked)) 1,000 mg in 250 mls @ 166.667 mls/hr IVPB DAILY@1300 [facility]; Protocol Last Admin: 11/25/19 13:49 Dose: 166.667 mls/hr Documented by: Melatonin (Melatonin) 3 mg PO HS PRN PRN Reason: INSOMNIA Last Admin: 11/24/19 21:24 Dose: 3 mg Documented by: Metoclopramide HCl (Reglan -) 10 mg PO TIDAC [facility] Last Admin: 11/25/19 17:30 Dose: 10 mg Documented by: Polyethylene Glycol (Miralax (For Daily Use) -) 17 gm PO TID [facility] Last Admin: 11/25/19 13:54 Dose: Not Given Documented by: Senna (Senna -) 2 tab PO HS PRN PRN Reason: CONSTIPATION Tramadol HCl (Ultram -) 100 mg PO Q8H PRN PRN Reason: PAIN LEVEL 6-10 Last Admin: 11/23/19 19:45 Dose: 100 mg Documented by: Zinc Sulfate (Orazinc -) 220 mg PO DAILY@0800 [facility] Last Admin: 11/25/19 09:01 Dose: 220 mg Documented by: - Objective Vital Signs: Vital Signs Temperature 98.4 F 11/25/19 19:44 Pulse Rate 89 11/25/19 19:44 Respiratory Rate 18 11/25/19 19:44 Blood Pressure 143/78 11/25/19 19:44 O2 Sat by Pulse Oximetry (%) 98 11/25/19 19:45 Constitutional: Yes: No Distress Cardiovascular: Yes: Regular Rate and Rhythm Respiratory: Yes: Regular Gastrointestinal: Yes: Soft Genitourinary: Yes: Incontinence Musculoskeletal: Yes: Joint Stiffness, Muscle Weakness Labs: CBC, BMP 11/25/19 07:00 11/25/19 07:00 INR, PTT INR 1.35 (0.83-1.09) H 11/12/19 13:41 Problem List - Problems (1) History of DVT (deep vein thrombosis) Code(s): Z86.718 - PERSONAL HISTORY OF OTHER VENOUS THROMBOSIS AND EMBOLISM (2) Right foot drop Code(s): M21.371 - FOOT DROP, RIGHT FOOT (3) Surgical wound infection Code(s): T81.49XA - INFECTION FOLLOWING A PROCEDURE, OTHER SURGICAL SITE, INIT (4) S/P total knee replacement Code(s): Z96.659 - PRESENCE OF UNSPECIFIED ARTIFICIAL KNEE JOINT Qualifiers: (5) History of revision of total knee arthroplasty Code(s): Z96.659 - PRESENCE OF UNSPECIFIED ARTIFICIAL KNEE JOINT Assessment/Plan PAIN CONTROL CONTINUE WRITTEN DVT ON ELIQUIS CONTINUE PT EVAL WITH ORTHOPEDICS, WILL NEED PLACEMENT TO SNF. FALL RISKS D/W PATIENT OOB TO CHAIR ASSIST NEEDED LABS REVIEWED
[2019-11-25] MEDS: ATORVASTATIN CA 10 MG TABLET (FP) PO SCH (21:24)
[2019-11-25] MEDS: DOCUSATE SODIUM 100 MG CAPSULE (FP) PO SCH (21:26)
[2019-11-25] MEDS: MELATONIN 1 MG TABLET PO PRN (23:02)
[2019-11-26] MEDS: POLYETHYLENE GLYCOL 3350 119 GM BTL PO SCH ×3 (05:27→21:41)
[2019-11-26] MEDS: ACETAMINOPHEN 325 MG TABLET (FP) PO SCH ×2 (05:27→12:19)
[2019-11-26] MEDS: METOCLOPRAMIDE HCL 10 MG TABLET (FP) PO SCH ×3 (06:03→17:46)
--- NOTE | 2019-11-26 08:28 | PN ---
Progress Note, Physician History of Present Illness: stable no new issues - Current Medication List Current Medications: Active Medications Acetaminophen (Tylenol -) 650 mg PO Q6HPO [facility] Last Admin: 11/26/19 05:27 Dose: 650 mg Documented by: Albuterol Sulfate (Ventolin Hfa Inhaler -) 2 puff IH Q4H PRN PRN Reason: SHORT OF BREATH/WHEEZING Amino Acids (Prosource No Carb Liquid Pkt) 30 ml PO BID@0800,1730 [facility] Last Admin: 11/25/19 17:29 Dose: 30 ml Documented by: Apixaban (Eliquis -) 5 mg PO BID [facility] Last Admin: 11/25/19 21:24 Dose: 5 mg Documented by: Atorvastatin Calcium (Lipitor -) 10 mg PO HS [facility] Last Admin: 11/25/19 21:24 Dose: 10 mg Documented by: Clotrimazole (Lotrisone Cream (Small Tube)) 1 applic TP BID [facility] Last Admin: 11/25/19 21:24 Dose: 1 applic Documented by: Docusate Sodium (Colace -) 300 mg PO HS [facility] Last Admin: 11/25/19 21:26 Dose: Not Given Documented by: Emollient Ointment (Aquaphor -) 1 applic TP BID [facility] Last Admin: 11/25/19 21:25 Dose: 1 applic Documented by: Gabapentin (Neurontin -) 100 mg PO BID [facility] Last Admin: 11/25/19 21:25 Dose: 100 mg Documented by: Hydrocortisone Acetate (Anusol Hc Suppository -) 25 mg RC BID [facility] Last Admin: 11/25/19 21:25 Dose: Not Given Documented by: Vancomycin HCl (Vancomycin (Pre-Docked)) 1,000 mg in 250 mls @ 166.667 mls/hr IVPB DAILY@1300 [facility]; Protocol Last Admin: 11/25/19 13:49 Dose: 166.667 mls/hr Documented by: Melatonin (Melatonin) 3 mg PO HS PRN PRN Reason: INSOMNIA Last Admin: 11/25/19 23:02 Dose: 3 mg Documented by: Metoclopramide HCl (Reglan -) 10 mg PO TIDAC [facility] Last Admin: 11/26/19 06:03 Dose: 10 mg Documented by: Polyethylene Glycol (Miralax (For Daily Use) -) 17 gm PO TID [facility] Last Admin: 11/26/19 05:27 Dose: Not Given Documented by: Senna (Senna -) 2 tab PO HS PRN PRN Reason: CONSTIPATION Tramadol HCl (Ultram -) 100 mg PO Q8H PRN PRN Reason: PAIN LEVEL 6-10 Last Admin: 11/23/19 19:45 Dose: 100 mg Documented by: Zinc Sulfate (Orazinc -) 220 mg PO DAILY@0800 [facility] Last Admin: 11/25/19 09:01 Dose: 220 mg Documented by: - Objective Vital Signs: Vital Signs Temperature 98.6 F 11/26/19 05:33 Pulse Rate 86 11/26/19 05:33 Respiratory Rate 18 11/26/19 05:33 Blood Pressure 148/77 11/26/19 05:33 O2 Sat by Pulse Oximetry (%) 98 11/25/19 19:45 Constitutional: Yes: No Distress, Calm Cardiovascular: Yes: S1, S2 Respiratory: Yes: Regular, CTA Bilaterally Gastrointestinal: Yes: Normal Bowel Sounds, Soft Musculoskeletal: Yes: WNL Extremities: Yes: WNL Wound/Incision: Yes: Dressing Dry and Intact Neurological: Yes: Alert, Oriented Psychiatric: Yes: Alert, Oriented Labs: CBC, BMP 11/25/19 07:00 11/25/19 07:00 INR, PTT INR 1.35 (0.83-1.09) H 11/12/19 13:41 Assessment/Plan Problem List - Problems (1) History of DVT (deep vein thrombosis) Code(s): Z86.718 - PERSONAL HISTORY OF OTHER VENOUS THROMBOSIS AND EMBOLISM (2) Right foot drop Code(s): M21.371 - FOOT DROP, RIGHT FOOT (3) Surgical wound infection Code(s): T81.49XA - INFECTION FOLLOWING A PROCEDURE, OTHER SURGICAL SITE, INIT (4) S/P total knee replacement Code(s): Z96.659 - PRESENCE OF UNSPECIFIED ARTIFICIAL KNEE JOINT Qualifiers: (5) COVID-19 Code(s): U07.1 - COVID POSITIVE (6) Hypertension Code(s): I10 - ESSENTIAL (PRIMARY) HYPERTENSION (7) Inability to ambulate due to knee Code(s): R26.2 - DIFFICULTY IN WALKING, NOT ELSEWHERE CLASSIFIED (8) Yanet-prosthetic fracture around prosthetic knee Code(s): M97.8XXA - PERIPROSTH FRACTURE AROUND OTHER INTERNAL PROSTH JOINT, INIT; Z96.659 - PRESENCE OF UNSPECIFIED ARTIFICIAL KNEE JOINT (9) COPD (chronic obstructive pulmonary disease) Code(s): J44.9 - CHRONIC OBSTRUCTIVE PULMONARY DISEASE, UNSPECIFIED (10) History of revision of total knee arthroplasty Code(s): Z96.659 - PRESENCE OF UNSPECIFIED ARTIFICIAL KNEE JOINT Assessment/Plan 79 y.o. female with PMH of HTN, COPD, Rt pop DVT, COVID, s/p revision of RT TKR and debridements with tibial wound/hardware exposure and possible patellar rupture readmitted for further management Rt tibial wound infection s/p debridement +MRSA /wound vac Rt TKR s/p revisions Possible Rt patellar rupture continue current mgmt wound care continue abx rest as per the team rest as per the team
[2019-11-26] MEDS ORDERED: PT OWN MED DRAWER 7, Y5N ONE ×2 (09:07→16:46)
[2019-11-26] MEDS: traMADol HCL 50 MG TABLET PO PRN (09:46)
[2019-11-26] MEDS: MINERAL OIL/PET HY-PHL TOPICAL OINTMENT 454 GM JAR TP SCH ×2 (09:48→21:40)
[2019-11-26] MEDS: APIXABAN 5 MG TABLET PO SCH ×2 (09:48→21:40)
[2019-11-26] MEDS: GABAPENTIN 100 MG CAPSULE PO SCH ×2 (09:48→21:41)
[2019-11-26] MEDS: ZINC SULFATE 220 MG CAPSULE (FP) PO SCH (09:48)
[2019-11-26] MEDS: AMINO ACIDS/PROTEIN HYDROLYS 30 ML LIQUID.PKT PO SCH ×2 (09:48→17:46)
[2019-11-26] MEDS: HYDROCORTISONE ACETATE 25 MG/SUPP.RECT RC SCH ×2 (09:48→21:40)
[2019-11-26] MEDS: CLOTRIMAZOLE/BETAMET DIPROP 15 GM TUBE TP SCH ×2 (09:48→21:41)
--- NOTE | 2019-11-26 10:29 | PN ---
Progress Note, Physician Chief Complaint: Right knee wound infection History of Present Illness: NAD On Wound vac Pain better controlled with Tramadol Right foot drop- is doing ROM exercises Seen by Orthopedic surgery, wound dressing changed with + formation of granulation tissue On IV Vanco - Current Medication List Current Medications: Active Medications Acetaminophen (Tylenol -) 650 mg PO Q6HPO [facility] Last Admin: 11/26/19 05:27 Dose: 650 mg Documented by: Albuterol Sulfate (Ventolin Hfa Inhaler -) 2 puff IH Q4H PRN PRN Reason: SHORT OF BREATH/WHEEZING Amino Acids (Prosource No Carb Liquid Pkt) 30 ml PO BID@0800,1730 [facility] Last Admin: 11/26/19 09:48 Dose: 30 ml Documented by: Apixaban (Eliquis -) 5 mg PO BID [facility] Last Admin: 11/26/19 09:48 Dose: 5 mg Documented by: Atorvastatin Calcium (Lipitor -) 10 mg PO HS [facility] Last Admin: 11/25/19 21:24 Dose: 10 mg Documented by: Clotrimazole (Lotrisone Cream (Small Tube)) 1 applic TP BID [facility] Last Admin: 11/26/19 09:48 Dose: 1 applic Documented by: Docusate Sodium (Colace -) 300 mg PO [facility] Last Admin: 11/25/19 21:26 Dose: Not Given Documented by: Emollient Ointment (Aquaphor -) 1 applic TP BID [facility] Last Admin: 11/26/19 09:48 Dose: 1 applic Documented by: Gabapentin (Neurontin -) 100 mg PO BID [facility] Last Admin: 11/26/19 09:48 Dose: 100 mg Documented by: Hydrocortisone Acetate (Anusol Hc Suppository -) 25 mg RC BID [facility] Last Admin: 11/26/19 09:48 Dose: Not Given Documented by: Vancomycin HCl (Vancomycin (Pre-Docked)) 1,000 mg in 250 mls @ 166.667 mls/hr IVPB DAILY@1300 [facility]; Protocol Last Admin: 11/25/19 13:49 Dose: 166.667 mls/hr Documented by: Melatonin (Melatonin) 3 mg PO HS PRN PRN Reason: INSOMNIA Last Admin: 11/25/19 23:02 Dose: 3 mg Documented by: Metoclopramide HCl (Reglan -) 10 mg PO TIDAC [facility] Last Admin: 11/26/19 06:03 Dose: 10 mg Documented by: Polyethylene Glycol (Miralax (For Daily Use) -) 17 gm PO TID [facility] Last Admin: 11/26/19 05:27 Dose: Not Given Documented by: Carlos (Senna -) 2 tab PO HS PRN PRN Reason: CONSTIPATION Zinc Sulfate (Orazinc -) 220 mg PO DAILY@0800 [facility] Last Admin: 11/26/19 09:48 Dose: 220 mg Documented by: - Objective Vital Signs: Vital Signs Temperature 98.6 F 11/26/19 05:33 Pulse Rate 86 11/26/19 05:33 Respiratory Rate 18 11/26/19 05:33 Blood Pressure 148/77 11/26/19 05:33 O2 Sat by Pulse Oximetry (%) 98 11/25/19 19:45 Constitutional: Yes: Well Nourished, No Distress, Calm Cardiovascular: Yes: Regular Rate and Rhythm Respiratory: Yes: Regular, CTA Bilaterally Genitourinary: Yes: Incontinence Musculoskeletal: Yes: Muscle Weakness Extremities: Yes: Other (RLE weakness- knee immobilizer- right foot drop) Edema: No Peripheral Pulses WNL: Yes Neurological: Yes: Alert, Oriented Psychiatric: Yes: Alert, Oriented Labs: CBC, BMP 11/25/19 07:00 11/25/19 07:00 INR, PTT INR 1.35 (0.83-1.09) H 11/12/19 13:41 Problem List - Problems (1) Right foot drop Assessment/Plan: -Kerlix over the foot for pt to be able to flex and extend her foot 10 x Q1H -Nursing staff educated to stimulate the ankle by flexing and extending it during their visits in patients room. -OOBTC daily with knee immobilizer -PT/OT/Rehab, OOBTC at least twice daily. -Offload B/L heels w/rolled towels under ankles to minimize risk of heel ulcer formation. Problems reviewed: Yes Code(s): M21.371 - FOOT DROP, RIGHT FOOT (2) Surgical wound infection Assessment/Plan: -Last cultures + MRSA -ID consult -IV Vanco -Wound vac-to facilitate granulation tissue, changed by orthopedic surgery Problems reviewed: Yes Code(s): T81.49XA - INFECTION FOLLOWING A PROCEDURE, OTHER SURGICAL SITE, INIT (3) S/P total knee replacement Assessment/Plan: -Seen by orthopedic surgery -WBAT with Right knee immobilizer -Pain management with tylenol 1g Q6H PRn -Hold tramadol due to nausea -NO ROM Right knee (due to patellar ligament rupture). -Neurontin 100mg PO BID -Vac changes +/- bedside debridements q48-72 hours by surgical team only. -DVT ppx Problems reviewed: Yes Code(s): Z96.659 - PRESENCE OF UNSPECIFIED ARTIFICIAL KNEE JOINT Qualifiers: (4) Hypertension Assessment/Plan: -Low sodium diet Problems reviewed: Yes Code(s): I10 - ESSENTIAL (PRIMARY) HYPERTENSION (5) History of DVT (deep vein thrombosis) Assessment/Plan: -In right popliteal and posterior tibial vein -Continue Eliquis 5 mg po bid Problems reviewed: Yes Code(s): Z86.718 - PERSONAL HISTORY OF OTHER VENOUS THROMBOSIS AND EMBOLISM (6) Constipation Assessment/Plan: -Colace 300 mg po hs -Miralax increase to TID -Senna 2 tabs HS Problems reviewed: Yes Code(s): K59.00 - CONSTIPATION, UNSPECIFIED (7) Hemorrhoids Assessment/Plan: -Anusol supp BID Problems reviewed: Yes Code(s): K64.9 - UNSPECIFIED HEMORRHOIDS Assessment/Plan See problem list Unable to reach radha Meredith due to [employer] and [employer] outage Pt needs to stay in the hospital for orthopedic surgery to be able to assess wound and treat for at least 3 weeks.
[2019-11-26] MEDS: VANCOMYCIN 1 GRAM (PRE-DOCKED) 1,000 MG/250 ML BAG IVPB SCH (13:30)
[2019-11-26] MEDS: ACETAMINOPHEN 500 MG TABLET (FP) PO PRN (17:45)
[2019-11-26] MEDS: ATORVASTATIN CA 10 MG TABLET (FP) PO SCH (21:40)
[2019-11-26] MEDS: DOCUSATE SODIUM 100 MG CAPSULE (FP) PO SCH (21:40)
[2019-11-27] MEDS ORDERED: PT OWN MED DRAWER 7, Y5N ONE ×2 (00:04→20:31)
[2019-11-27] MEDS: MELATONIN 1 MG TABLET PO PRN (00:19)
[2019-11-27] MEDS: ACETAMINOPHEN 500 MG TABLET (FP) PO PRN ×2 (00:19→09:51)
[2019-11-27] MEDS: POLYETHYLENE GLYCOL 3350 119 GM BTL PO SCH (06:00)
[2019-11-27] MEDS: METOCLOPRAMIDE HCL 10 MG TABLET (FP) PO SCH ×3 (06:00→16:55)
--- NOTE | 2019-11-27 08:37 | CONS ---
DATE OF CONSULTATION: DATE OF DICTATION: 11/26/2019 REQUESTING PHYSICIAN: Dr. Pardo REASON FOR CONSULTATION: Nonhealing open wound, Right knee. Post Surgery Complication Right knee Replacement. HISTORY: 79-year-old female underwent left knee Replacement with Prosthesis. Surgery August 21, Surgery 2nd procedure August 29. Post Op Complication: Ruptured Ligament/Tendon during Therapy for mobility,with exposed right tibial tubercle. Open wound Right knee., Hardware exposed. PAST HISTORY: Relevant for COVID-19 . history of hypertension, Negative CVA, cardiac disorders, cancer, asthma, anemia, dementia, diabetes. liver disease.seizures. Thyroid disease. Positive :History of hypercholesterolemia. PAST SURGICAL HISTORY: Abdominal surgery none. Appendectomy none. Cardiac surgery none. Cholecystectomy none. Lung surgery none. Neurological surgery none. Orthopedic surgery yes, left total knee replacement in 2016. SOCIAL HISTORY: Nonsmoker. Alcohol use socially. Drug abuse none. Substance abuse, uses alcohol. No substance abuse. ALLERGIES: SULFA, severe rash. IBUPROFEN reaction to it severe. Previously her RBCs have dropped; this was recorded on August 20, 2019. MEDICATION: Patient on: 1. Ascorbic acid 1000 mg daily. 2. Eliquis 5 mg b.i.d. since September 03, 2019. 3. Bethanechol chloride 50 mg t.i.d. 4. Ferrous sulfate 325 b.i.d. 5. Albuterol inhaler 2 puffs as needed every 4 hours. 6. Amlodipine besylate. 7. Norvasc 5 mg daily. 8. Lotrisone applied b.i.d. topically. 9. Metoclopramide, which is Reglan 10 mg t.i.d. 10. tablets. 11. Vancomycin 0.9% sodium chloride 750 mg IV b.i.d. for the last 30 days. 12. Zinc sulfate 220 mg daily. 13. Acetaminophen 325 p.o. as needed. 14. Amino acid protein solution as a liquid packet. 15. Atorvastatin. 16. Calcium 10 mg daily. 17. Ergocalciferol. 18. Vitamin D2 50,000 units daily. 19. Lanolin mineral oil. 20. Eucerin lotion for the skin. 21. Melatonin 3 mg daily. VITAL SIGNS: Temperature on November 25 of 98.1, pulse rate 122, blood pressure 133/73, room temperature oxygen saturation is 94. MICROBIOLOGY: Last swab culture October 27, 2019. MRSA October 25, peripheral blood culture: no growth after 5 days. Venous blood was no growth. August 27 cultures E. coli negative. Urine August Enterobacter cloacae . Right Knee evaluated with Dr Pardo. Discussed following: Factors contributing to difficult healing : 1 Exposed Hardware. 2. Age. 3. Healing Problems related to swelling. 4. Non -Optimal Nutrition/Low Protein . 5. DVT Surgical Options Available Provided Infection is under control: 1. Local Muscle Gastrocnemius Muscle Flap with Skin Grafting. 2. Free Flap 3.Lateral Gastrocnemius Flap Patient may not be a candidate for Free Flap Recommend : Nutrition Optimization Reduction of swelling. Consider [facility] [place] [id number] MTDD
[2019-11-27] MEDS: APIXABAN 5 MG TABLET PO SCH ×2 (09:49→21:22)
[2019-11-27] MEDS: ZINC SULFATE 220 MG CAPSULE (FP) PO SCH (09:49)
[2019-11-27] MEDS: AMINO ACIDS/PROTEIN HYDROLYS 30 ML LIQUID.PKT PO SCH ×2 (09:49→16:55)
[2019-11-27] MEDS: HYDROCORTISONE ACETATE 25 MG/SUPP.RECT RC SCH (09:49)
[2019-11-27] MEDS: MINERAL OIL/PET HY-PHL TOPICAL OINTMENT 454 GM JAR TP SCH ×2 (09:50→21:22)
[2019-11-27] MEDS: CLOTRIMAZOLE/BETAMET DIPROP 15 GM TUBE TP SCH ×2 (09:50→21:22)
[2019-11-27] MEDS: GABAPENTIN 100 MG CAPSULE PO SCH ×2 (09:51→21:22)
--- NOTE | 2019-11-27 12:40 | PN ---
Progress Note, Physician Chief Complaint: Right knee wound infection History of Present Illness: NAD On Wound vac Pain better controlled with Tramadol Right foot drop- is doing ROM exercises Seen by Orthopedic surgery, wound dressing changed with + formation of granulation tissue On IV Vanco Dry heaving at the moment, has been dry heaving daily in AM - Current Medication List Current Medications: Active Medications Acetaminophen (Tylenol -) 1,000 mg PO Q6H PRN PRN Reason: PAIN Last Admin: 11/27/19 09:51 Dose: 1,000 mg Documented by: Albuterol Sulfate (Ventolin Hfa Inhaler -) 2 puff IH Q4H PRN PRN Reason: SHORT OF BREATH/WHEEZING Amino Acids (Prosource No Carb Liquid Pkt) 30 ml PO BID@0800,1730 [facility] Last Admin: 11/27/19 09:49 Dose: 30 ml Documented by: Apixaban (Eliquis -) 5 mg PO BID [facility] Last Admin: 11/27/19 09:49 Dose: 5 mg Documented by: Atorvastatin Calcium (Lipitor -) 10 mg PO [facility] Last Admin: 11/26/19 21:40 Dose: 10 mg Documented by: Clotrimazole (Lotrisone Cream (Small Tube)) 1 applic TP BID [facility] Last Admin: 11/27/19 09:50 Dose: 1 applic Documented by: Docusate Sodium (Colace -) 300 mg PO [facility] Last Admin: 11/26/19 21:40 Dose: Not Given Documented by: Emollient Ointment (Aquaphor -) 1 applic TP BID [facility] Last Admin: 11/27/19 09:50 Dose: 1 applic Documented by: Gabapentin (Neurontin -) 100 mg PO BID [facility] Last Admin: 11/27/19 09:51 Dose: 100 mg Documented by: Hydrocortisone Acetate (Anusol Hc Suppository -) 25 mg RC BID [facility] Last Admin: 11/27/19 09:49 Dose: Not Given Documented by: Vancomycin HCl (Vancomycin (Pre-Docked)) 1,000 mg in 250 mls @ 166.667 mls/hr IVPB DAILY@1300 [facility]; Protocol Last Admin: 11/26/19 13:30 Dose: 166.667 mls/hr Documented by: Melatonin (Melatonin) 3 mg PO HS PRN PRN Reason: INSOMNIA Last Admin: 11/27/19 00:19 Dose: 3 mg Documented by: Metoclopramide HCl (Reglan -) 10 mg PO TIDAC [facility] Last Admin: 11/27/19 11:08 Dose: 10 mg Documented by: Ondansetron HCl (Zofran Injection) 4 mg IVPUSH Q6H PRN PRN Reason: NAUSEA Polyethylene Glycol (Miralax (For Daily Use) -) 17 gm PO TID [facility] Last Admin: 11/27/19 06:00 Dose: Not Given Documented by: Senna (Senna -) 2 tab PO HS PRN PRN Reason: CONSTIPATION - Objective Vital Signs: Vital Signs Temperature 98.2 F 11/27/19 10:00 Pulse Rate 88 11/27/19 10:00 Respiratory Rate 20 11/27/19 10:00 Blood Pressure 143/73 11/27/19 10:00 O2 Sat by Pulse Oximetry (%) 94 L 11/26/19 09:00 Constitutional: Yes: Well Nourished, No Distress, Calm Cardiovascular: Yes: Regular Rate and Rhythm Respiratory: Yes: Regular, CTA Bilaterally Gastrointestinal: Yes: Normal Bowel Sounds, Soft, Abdomen, Obese, Tenderness (Suprapubic) Genitourinary: Yes: Incontinence Musculoskeletal: Yes: Muscle Weakness Extremities: Yes: Other (right knee immobilizer) Edema: No Peripheral Pulses WNL: Yes Wound/Incision: Yes: Dressing Dry and Intact Neurological: Yes: Alert, Oriented Psychiatric: Yes: Alert, Oriented Labs: CBC, BMP 11/25/19 07:00 11/25/19 07:00 INR, PTT INR 1.35 (0.83-1.09) H 11/12/19 13:41 Problem List - Problems (1) Right foot drop Assessment/Plan: -Kerlix over the foot for pt to be able to flex and extend her foot 10 x Q1H -Nursing staff educated to stimulate the ankle by flexing and extending it during their visits in patients room. -OOBTC daily with knee immobilizer -PT/OT/Rehab, OOBTC at least twice daily. -Offload B/L heels w/rolled towels under ankles to minimize risk of heel ulcer formation. Problems reviewed: Yes Code(s): M21.371 - FOOT DROP, RIGHT FOOT (2) Surgical wound infection Assessment/Plan: -Last cultures + MRSA -ID consult -IV Vanco -Wound vac-to facilitate granulation tissue, changed by orthopedic surgery Problems reviewed: Yes Code(s): T81.49XA - INFECTION FOLLOWING A PROCEDURE, OTHER SURGICAL SITE, INIT (3) S/P total knee replacement Assessment/Plan: -Seen by orthopedic surgery -WBAT with Right knee immobilizer -Pain management with tylenol 1g Q6H PRN -NO ROM Right knee (due to patellar ligament rupture). -Neurontin 100mg PO BID -Vac changes +/- bedside debridements q48-72 hours by surgical team only. -DVT ppx -Plan is for skin flap on 12/04/19 in OR with orthopedic and plastic surgery -Hold Eliquis starting 11/29/19, start pt on Lovenox 70 mg BID. Problems reviewed: Yes Code(s): Z96.659 - PRESENCE OF UNSPECIFIED ARTIFICIAL KNEE JOINT Qualifiers: (4) Hypertension Assessment/Plan: -Low sodium diet Problems reviewed: Yes Code(s): I10 - ESSENTIAL (PRIMARY) HYPERTENSION (5) History of DVT (deep vein thrombosis) Assessment/Plan: -In right popliteal and posterior tibial vein -Continue Eliquis 5 mg po bid, hold eliquis starting Problems reviewed: Yes Code(s): Z86.718 - PERSONAL HISTORY OF OTHER VENOUS THROMBOSIS AND EMBOLISM (6) Constipation Assessment/Plan: -Colace 300 mg po hs -Decrease miralax to PO daily -D/C senna Problems reviewed: Yes Code(s): K59.00 - CONSTIPATION, UNSPECIFIED (7) Hemorrhoids Assessment/Plan: -Resolved -d/c Anusol supp BID Problems reviewed: Yes Code(s): K64.9 - UNSPECIFIED HEMORRHOIDS (8) Nausea & vomiting Assessment/Plan: -AXR F&U -D/C zinc, could be causing GI symptoms Problems reviewed: Yes Code(s): R11.2 - NAUSEA WITH VOMITING, UNSPECIFIED (9) Suprapubic discomfort Assessment/Plan: -UA/UC -Bladder scan, insert sims if retaining >300 ml urine Problems reviewed: Yes Code(s): R10.2 - PELVIC AND PERINEAL PAIN Assessment/Plan See problem list Spoke to son Masoud for pt update.
[2019-11-27] MEDS: ONDANSETRON 4 MG/2 ML VIAL IVPUSH PRN (12:54)
[2019-11-27] MEDS: VANCOMYCIN 1 GRAM (PRE-DOCKED) 1,000 MG/250 ML BAG IVPB SCH (13:00)
[2019-11-27] MEDS ORDERED: ENOXAPARIN NA (PORCINE) 80 MG/0.8 ML DISP.SYRIN SQ SCH (13:00)
[2019-11-27 15:22] LABS: EPI CELLS >36 /uL (0-25.1); HYALINE CASTS 1 /uL (0-3.1); PH,URINE 5.5 (5.0-8.0); URINE APPEARANCE TURBID; URINE BACTERIA 4256 /uL (0-1359); URINE BILIRUBIN NEGATIVE (NEGATIVE); URINE COLOR YELLOW; URINE GLUCOSE (UA) NEGATIVE (NEGATIVE); URINE KETONE NEGATIVE (NEGATIVE); URINE LEUK ESTERASE 3+ (NEGATIVE); URINE NITRITE NEGATIVE (NEGATIVE); URINE PROTEIN NEGATIVE (NEGATIVE); URINE UROBILINOGEN 0.2 mg/dL (0.2-1.0); URINE WBC 3409 /uL (0-25.8)
[2019-11-27 16:13] LABS: URINE RBC 111.1 /uL (0-23.9); YEAST NONE SEEN (NEGATIVE)
--- NOTE | 2019-11-27 17:21 | PN ---
Progress Note, Physician History of Present Illness: Pt alert, afebrile. No complaints other than nausea/dry heaving earlier today, small amount of vomiting but feels well currently. - Current Medication List Current Medications: Active Medications Acetaminophen (Tylenol -) 1,000 mg PO Q6H PRN PRN Reason: PAIN Last Admin: 11/27/19 09:51 Dose: 1,000 mg Documented by: Albuterol Sulfate (Ventolin Hfa Inhaler -) 2 puff IH Q4H PRN PRN Reason: SHORT OF BREATH/WHEEZING Amino Acids (Prosource No Carb Liquid Pkt) 30 ml PO BID@0800,1730 [facility] Last Admin: 11/27/19 16:55 Dose: 30 ml Documented by: Apixaban (Eliquis -) 5 mg PO BID [facility] Last Admin: 11/27/19 09:49 Dose: 5 mg Documented by: Atorvastatin Calcium (Lipitor -) 10 mg PO HS [facility] Last Admin: 11/26/19 21:40 Dose: 10 mg Documented by: Clotrimazole (Lotrisone Cream (Small Tube)) 1 applic TP BID [facility] Last Admin: 11/27/19 09:50 Dose: 1 applic Documented by: Docusate Sodium (Colace -) 300 mg PO [facility] Last Admin: 11/26/19 21:40 Dose: Not Given Documented by: Emollient Ointment (Aquaphor -) 1 applic TP BID [facility] Last Admin: 11/27/19 09:50 Dose: 1 applic Documented by: Enoxaparin Sodium (Lovenox -) 70 mg SQ BID [facility] Gabapentin (Neurontin -) 100 mg PO BID [facility] Last Admin: 11/27/19 09:51 Dose: 100 mg Documented by: Vancomycin HCl (Vancomycin (Pre-Docked)) 1,000 mg in 250 mls @ 166.667 mls/hr IVPB DAILY@1300 [facility]; Protocol Last Admin: 11/27/19 13:00 Dose: 166.667 mls/hr Documented by: Melatonin (Melatonin) 3 mg PO HS PRN PRN Reason: INSOMNIA Last Admin: 11/27/19 00:19 Dose: 3 mg Documented by: Metoclopramide HCl (Reglan -) 10 mg PO TIDAC [facility] Last Admin: 11/27/19 16:55 Dose: 10 mg Documented by: Ondansetron HCl (Zofran Injection) 4 mg IVPUSH Q6H PRN PRN Reason: NAUSEA Last Admin: 11/27/19 12:54 Dose: 4 mg Documented by: Polyethylene Glycol (Miralax (For Daily Use) -) 17 gm PO DAILY [facility] - Objective Vital Signs: Vital Signs Temperature 98.1 F 11/27/19 16:30 Pulse Rate 97 H 11/27/19 16:30 Respiratory Rate 20 11/27/19 16:30 Blood Pressure 134/71 11/27/19 16:30 O2 Sat by Pulse Oximetry (%) 96 11/27/19 09:00 Constitutional: Yes: No Distress Cardiovascular: Yes: Regular Rate and Rhythm Respiratory: Yes: Regular Gastrointestinal: Yes: Normal Bowel Sounds, Soft Wound/Incision: Yes: Other (Rt knee wound vac/immobilizer) Neurological: Yes: Alert Labs: CBC, BMP 11/25/19 07:00 11/25/19 07:00 INR, PTT INR 1.35 (0.83-1.09) H 11/12/19 13:41 Problem List - Problems (1) History of DVT (deep vein thrombosis) Code(s): Z86.718 - PERSONAL HISTORY OF OTHER VENOUS THROMBOSIS AND EMBOLISM (2) Right foot drop Code(s): M21.371 - FOOT DROP, RIGHT FOOT (3) Surgical wound infection Code(s): T81.49XA - INFECTION FOLLOWING A PROCEDURE, OTHER SURGICAL SITE, INIT (4) S/P total knee replacement Code(s): Z96.659 - PRESENCE OF UNSPECIFIED ARTIFICIAL KNEE JOINT Qualifiers: (5) COVID-19 Code(s): U07.1 - COVID POSITIVE (6) Hypertension Code(s): I10 - ESSENTIAL (PRIMARY) HYPERTENSION (7) Inability to ambulate due to knee Code(s): R26.2 - DIFFICULTY IN WALKING, NOT ELSEWHERE CLASSIFIED (8) Yanet-prosthetic fracture around prosthetic knee Code(s): M97.8XXA - PERIPROSTH FRACTURE AROUND OTHER INTERNAL PROSTH JOINT, INIT; Z96.659 - PRESENCE OF UNSPECIFIED ARTIFICIAL KNEE JOINT (9) COPD (chronic obstructive pulmonary disease) Code(s): J44.9 - CHRONIC OBSTRUCTIVE PULMONARY DISEASE, UNSPECIFIED (10) History of revision of total knee arthroplasty Code(s): Z96.659 - PRESENCE OF UNSPECIFIED ARTIFICIAL KNEE JOINT Assessment/Plan 79 y.o. female with PMH of HTN, COPD, Rt pop DVT, COVID, s/p revision of RT TKR and debridements with tibial wound/hardware exposure and possible patellar rupture readmitted for further management Rt tibial wound infection s/p debridement +MRSA /wound vac Rt TKR s/p revisions Rt patellar rupture -- continue antibiotics -- repeat Vancomycin trough -- continue monitor renal function -- Plastic surgery followup for gastrocnemius flap -- Possible patellar repair
[2019-11-27] MEDS: ATORVASTATIN CA 10 MG TABLET (FP) PO SCH (21:22)
[2019-11-27] MEDS: DOCUSATE SODIUM 100 MG CAPSULE (FP) PO SCH (21:22)
[2019-11-28] MEDS: MELATONIN 1 MG TABLET PO PRN ×2 (00:03→22:58)
[2019-11-28] MEDS: ACETAMINOPHEN 500 MG TABLET (FP) PO PRN ×2 (00:03→22:58)
[2019-11-28] MEDS: METOCLOPRAMIDE HCL 10 MG TABLET (FP) PO SCH ×3 (06:27→16:42)
[2019-11-28] MEDS ORDERED: ENOXAPARIN NA (PORCINE) 80 MG/0.8 ML DISP.SYRIN SQ SCH (09:00)
[2019-11-28] MEDS ORDERED: PT OWN MED DRAWER 7, Y5N ONE ×2 (09:52→22:57)
--- NOTE | 2019-11-28 10:16 | PN ---
Progress Note, Physician Chief Complaint: Right knee wound infection History of Present Illness: NAD, sitting in chair, nausea resolved Had BM this AM. On Wound vac Right foot drop- is doing ROM exercises Seen by Orthopedic surgery, wound dressing changed with + formation of granulation tissue On IV Vanco - Current Medication List Current Medications: Active Medications Acetaminophen (Tylenol -) 1,000 mg PO Q6H PRN PRN Reason: PAIN Last Admin: 11/28/19 00:03 Dose: 1,000 mg Documented by: Albuterol Sulfate (Ventolin Hfa Inhaler -) 2 puff IH Q4H PRN PRN Reason: SHORT OF BREATH/WHEEZING Amino Acids (Prosource No Carb Liquid Pkt) 30 ml PO BID@0800,1730 [facility] Last Admin: 11/27/19 16:55 Dose: 30 ml Documented by: Apixaban (Eliquis -) 5 mg PO BID [facility] Last Admin: 11/27/19 21:22 Dose: 5 mg Documented by: Atorvastatin Calcium (Lipitor -) 10 mg PO HS [facility] Last Admin: 11/27/19 21:22 Dose: 10 mg Documented by: Clotrimazole (Lotrisone Cream (Small Tube)) 1 applic TP BID [facility] Last Admin: 11/27/19 21:22 Dose: 1 applic Documented by: Docusate Sodium (Colace -) 300 mg PO [facility] Last Admin: 11/27/19 21:22 Dose: Not Given Documented by: Emollient Ointment (Aquaphor -) 1 applic TP BID [facility] Last Admin: 11/27/19 21:22 Dose: 1 applic Documented by: Enoxaparin Sodium (Lovenox -) 70 mg SQ BID [facility] Gabapentin (Neurontin -) 100 mg PO BID [facility] Last Admin: 11/27/19 21:22 Dose: 100 mg Documented by: Vancomycin HCl (Vancomycin (Pre-Docked)) 1,000 mg in 250 mls @ 166.667 mls/hr IVPB DAILY@1300 [facility]; Protocol Last Admin: 11/27/19 13:00 Dose: 166.667 mls/hr Documented by: Melatonin (Melatonin) 3 mg PO HS PRN PRN Reason: INSOMNIA Last Admin: 11/28/19 00:03 Dose: 3 mg Documented by: Metoclopramide HCl (Reglan -) 10 mg PO TIDAC [facility] Last Admin: 11/28/19 06:27 Dose: 10 mg Documented by: Ondansetron HCl (Zofran Injection) 4 mg IVPUSH Q6H PRN PRN Reason: NAUSEA Last Admin: 11/27/19 12:54 Dose: 4 mg Documented by: Polyethylene Glycol (Miralax (For Daily Use) -) 17 gm PO DAILY [facility] - Objective Vital Signs: Vital Signs Temperature 98.3 F 11/28/19 07:35 Pulse Rate 84 11/28/19 07:35 Respiratory Rate 11/28/19 07:35 Blood Pressure 129/59 L 11/28/19 07:35 O2 Sat by Pulse Oximetry (%) 96 11/27/19 09:00 Constitutional: Yes: Well Nourished, No Distress, Calm Cardiovascular: Yes: Regular Rate and Rhythm Respiratory: Yes: Regular, CTA Bilaterally Gastrointestinal: Yes: Normal Bowel Sounds, Soft Genitourinary: Yes: Incontinence Musculoskeletal: Yes: Muscle Weakness Extremities: Yes: Other (Knee immobilizer) Edema: No Peripheral Pulses WNL: Yes Wound/Incision: Yes: Dressing Dry and Intact Neurological: Yes: Alert, Oriented Psychiatric: Yes: Alert, Oriented Labs: CBC, BMP 11/25/19 07:00 11/25/19 07:00 INR, PTT INR 1.35 (0.83-1.09) H 11/12/19 13:41 Problem List - Problems (1) Right foot drop Assessment/Plan: -Kerlix over the foot for pt to be able to flex and extend her foot 10 x Q1H -Nursing staff educated to stimulate the ankle by flexing and extending it during their visits in patients room. -OOBTC daily with knee immobilizer -PT/OT/Rehab, OOBTC at least twice daily. -Offload B/L heels w/rolled towels under ankles to minimize risk of heel ulcer formation. Problems reviewed: Yes Code(s): M21.371 - FOOT DROP, RIGHT FOOT (2) Surgical wound infection Assessment/Plan: -Last cultures + MRSA -ID consult -IV Vanco -Wound vac-to facilitate granulation tissue, changed by orthopedic surgery Problems reviewed: Yes Code(s): T81.49XA - INFECTION FOLLOWING A PROCEDURE, OTHER SURGICAL SITE, INIT (3) S/P total knee replacement Assessment/Plan: -Seen by orthopedic surgery -WBAT with Right knee immobilizer -Pain management with tylenol 1g Q6H PRN -NO ROM Right knee (due to patellar ligament rupture). -Neurontin 100mg PO BID -Vac changes +/- bedside debridements q48-72 hours by surgical team only. -DVT ppx -Plan is for skin flap on 12/04/19 in OR with orthopedic and plastic surgery -Hold Eliquis starting 11/29/19, start pt on Lovenox 70 mg BID. Problems reviewed: Yes Code(s): Z96.659 - PRESENCE OF UNSPECIFIED ARTIFICIAL KNEE JOINT Qualifiers: (4) Hypertension Assessment/Plan: -Low sodium diet Problems reviewed: Yes Code(s): I10 - ESSENTIAL (PRIMARY) HYPERTENSION (5) History of DVT (deep vein thrombosis) Assessment/Plan: -In right popliteal and posterior tibial vein -Continue Eliquis 5 mg po bid, hold eliquis starting Problems reviewed: Yes Code(s): Z86.718 - PERSONAL HISTORY OF OTHER VENOUS THROMBOSIS AND EMBOLISM (6) Constipation Assessment/Plan: -resolved -Colace 300 mg po hs -Decrease miralax to PO daily Problems reviewed: Yes Code(s): K59.00 - CONSTIPATION, UNSPECIFIED (7) Hemorrhoids Assessment/Plan: -Resolved -d/c Anusol supp BID Problems reviewed: Yes Code(s): K64.9 - UNSPECIFIED HEMORRHOIDS (8) Nausea & vomiting Assessment/Plan: -Resolved -AXR F&U-results pending -Likely zinc causing GI symptoms Problems reviewed: Yes Code(s): R11.2 - NAUSEA WITH VOMITING, UNSPECIFIED (9) Suprapubic discomfort Assessment/Plan: -UA/UC-pending -Bladder scan- no retention Problems reviewed: Yes Code(s): R10.2 - PELVIC AND PERINEAL PAIN Assessment/Plan See problem list Spoke to son Masoud for pt update.
[2019-11-28] MEDS: AMINO ACIDS/PROTEIN HYDROLYS 30 ML LIQUID.PKT PO SCH ×2 (10:29→16:42)
[2019-11-28] MEDS: GABAPENTIN 100 MG CAPSULE PO SCH ×2 (10:30→21:20)
[2019-11-28] MEDS: APIXABAN 5 MG TABLET PO SCH ×2 (10:30→21:19)
[2019-11-28] MEDS: MINERAL OIL/PET HY-PHL TOPICAL OINTMENT 454 GM JAR TP SCH ×2 (10:30→21:21)
[2019-11-28] MEDS: CLOTRIMAZOLE/BETAMET DIPROP 15 GM TUBE TP SCH ×2 (10:31→21:21)
[2019-11-28] MEDS: POLYETHYLENE GLYCOL 3350 119 GM BTL PO SCH (10:31)
--- NOTE | 2019-11-28 11:42 | PN ---
Progress Note, Physician History of Present Illness: stable no new issues - Current Medication List Current Medications: Active Medications Acetaminophen (Tylenol -) 1,000 mg PO Q6H PRN PRN Reason: PAIN Last Admin: 11/28/19 00:03 Dose: 1,000 mg Documented by: Albuterol Sulfate (Ventolin Hfa Inhaler -) 2 puff IH Q4H PRN PRN Reason: SHORT OF BREATH/WHEEZING Amino Acids (Prosource No Carb Liquid Pkt) 30 ml PO BID@0800,1730 [facility] Last Admin: 11/28/19 10:29 Dose: 30 ml Documented by: Apixaban (Eliquis -) 5 mg PO BID [facility] Last Admin: 11/28/19 10:30 Dose: 5 mg Documented by: Atorvastatin Calcium (Lipitor -) 10 mg PO HS [facility] Last Admin: 11/27/19 21:22 Dose: 10 mg Documented by: Clotrimazole (Lotrisone Cream (Small Tube)) 1 applic TP BID [facility] Last Admin: 11/28/19 10:31 Dose: 1 applic Documented by: Docusate Sodium (Colace -) 300 mg PO HS [facility] Last Admin: 11/27/19 21:22 Dose: Not Given Documented by: Emollient Ointment (Aquaphor -) 1 applic TP BID [facility] Last Admin: 11/28/19 10:30 Dose: 1 applic Documented by: Enoxaparin Sodium (Lovenox -) 70 mg SQ BID [facility] Last Admin: 11/28/19 10:30 Dose: 70 mg Documented by: Gabapentin (Neurontin -) 100 mg PO BID [facility] Last Admin: 11/28/19 10:30 Dose: 100 mg Documented by: Vancomycin HCl (Vancomycin (Pre-Docked)) 1,000 mg in 250 mls @ 166.667 mls/hr IVPB DAILY@1300 [facility]; Protocol Last Admin: 11/27/19 13:00 Dose: 166.667 mls/hr Documented by: Melatonin (Melatonin) 3 mg PO HS PRN PRN Reason: INSOMNIA Last Admin: 11/28/19 00:03 Dose: 3 mg Documented by: Metoclopramide HCl (Reglan -) 10 mg PO TIDAC [facility] Last Admin: 11/28/19 10:30 Dose: 10 mg Documented by: Ondansetron HCl (Zofran Injection) 4 mg IVPUSH Q6H PRN PRN Reason: NAUSEA Last Admin: 11/27/19 12:54 Dose: 4 mg Documented by: Polyethylene Glycol (Miralax (For Daily Use) -) 17 gm PO DAILY [facility] Last Admin: 11/28/19 10:31 Dose: Not Given Documented by: - Objective Vital Signs: Vital Signs Temperature 98 F 11/28/19 10:00 Pulse Rate 89 11/28/19 10:00 Respiratory Rate 18 11/28/19 10:00 Blood Pressure 127/69 11/28/19 10:00 O2 Sat by Pulse Oximetry (%) 96 11/27/19 09:00 Constitutional: Yes: No Distress, Calm Cardiovascular: Yes: S1, S2 Respiratory: Yes: Regular, CTA Bilaterally Gastrointestinal: Yes: Normal Bowel Sounds, Soft Musculoskeletal: Yes: WNL Extremities: Yes: Other Integumentary: Yes: Other Wound/Incision: Yes: Dressing Dry and Intact Neurological: Yes: Alert, Oriented Psychiatric: Yes: Alert, Oriented Labs: CBC, BMP 11/25/19 07:00 11/25/19 07:00 INR, PTT INR 1.35 (0.83-1.09) H 11/12/19 13:41 Assessment/Plan Problem List - Problems (1) History of DVT (deep vein thrombosis) Code(s): Z86.718 - PERSONAL HISTORY OF OTHER VENOUS THROMBOSIS AND EMBOLISM (2) Right foot drop Code(s): M21.371 - FOOT DROP, RIGHT FOOT (3) Surgical wound infection Code(s): T81.49XA - INFECTION FOLLOWING A PROCEDURE, OTHER SURGICAL SITE, INIT (4) S/P total knee replacement Code(s): Z96.659 - PRESENCE OF UNSPECIFIED ARTIFICIAL KNEE JOINT Qualifiers: (5) COVID-19 Code(s): U07.1 - COVID POSITIVE (6) Hypertension Code(s): I10 - ESSENTIAL (PRIMARY) HYPERTENSION (7) Inability to ambulate due to knee Code(s): R26.2 - DIFFICULTY IN WALKING, NOT ELSEWHERE CLASSIFIED (8) Yanet-prosthetic fracture around prosthetic knee Code(s): M97.8XXA - PERIPROSTH FRACTURE AROUND OTHER INTERNAL PROSTH JOINT, INIT; Z96.659 - PRESENCE OF UNSPECIFIED ARTIFICIAL KNEE JOINT (9) COPD (chronic obstructive pulmonary disease) Code(s): J44.9 - CHRONIC OBSTRUCTIVE PULMONARY DISEASE, UNSPECIFIED (10) History of revision of total knee arthroplasty Code(s): Z96.659 - PRESENCE OF UNSPECIFIED ARTIFICIAL KNEE JOINT Assessment/Plan 79 y.o. female with PMH of HTN, COPD, Rt pop DVT, COVID, s/p revision of RT TKR and debridements with tibial wound/hardware exposure and possible patellar rupture readmitted for further management Rt tibial wound infection s/p debridement +MRSA /wound vac Rt TKR s/p revisions Possible Rt patellar rupture continue current mgmt wound care continue abx plan for surgery on
--- NOTE | 2019-11-28 13:30 | PN ---
Progress Note (short form) - Note Progress Note: 79F s/p complex revision right total knee replacement/reconstruction 08/30/19 now p/w soft tissue breakdown and wound overlying right tibial tubercle. Pt. seen in conjunction with Dr. Craft (plastic surgery service). Pain well controlled at present. No acute events overnight. Pt. denies overnight history of headaches, chest pain, shortness of breath, nausea, vomiting, chills, & sweats. (+) Voiding; (+) Flatus; (+) BM. Pt. is receiving PROM R ankle (d/t to foot drop) to mitigate risk for Achilles contracture. (+) R heel offloaded on rolled towel. Custom function AFO & offloading night time AFO splints at bedside. (+) RLE knee immobilizer in place. All labs and vitals reviewed. PE: AAO x 3, NAD. R Knee: Wound Vac dressing removed. Wound overlying tibial tubercle size 4.5cm (L) x 3cm (W) x 0.25cm deep as measured with ruler. No concerning signs of wound infection: no purulence, exudate, pus, malodor, infectious drainage, or surrounding erythema. Patellar ligament rupture remains unchanged (partial VS full-thickness indeterminate). Unable to fully visualize ligament due to limited exposure. Able to now see polyethylene liner and part of tibial prosthesis. (+) Increased sero-sanguinous drainage through defect in patellar ligament. (+) Continued proliferation of granulation tissue formation since last dressing change. No wound debridement necessary. Tibial tubercle screw minimally exposed; almost completely overgrown with granulation tissue. No erythema involving skin margins or surrounding soft tissue. No nahomi-wound nor nahomi-articular signs of infection or inflammation. Wound vac re-applied. Knee immobilizer re-applied. Ankle PROM performed to dorsiflex ankle past neutral position. RLE M: HF/KF/KE/ADF 5/5; ADF/GTE 1/5 (I.E. foot drop). RLE S: Femoral, Saphenous, Lateral Sural, Tibial Nerves 2/2; Superficial Peroneal Nerve 1/2; Deep Peroneal Nerve 0/2. A/P: 79F s/p complex revision right total knee replacement/reconstruction 08/30/19 now p/w soft tissue breakdown and wound overlying right tibial tubercle. -Pt. to remain in house for wound care. -Foot drop discussed with Dr. Huang Mak; patient will follow-up on an outpatient basis for EMG study of right lower extremity. -Will order R knee [place]. -Vac changes +/- bedside debridements q48-72 hours by surgical team only. -Pain control. -DVT PPx: -Chemical: continue Eliquis; hold Eliquis after 11/29/2019 dose in preparation for surgery. -Mechanical: LLE SORAYA's, SCD's. -Incentive spirometry. -PT/OT/Rehab, OOBTC at least twice daily. -NO ROM RIGHT KNEE (due to patellar ligament rupture). -PT & Nursing PROM R ANKLE (DORSIFLEXION) OFTEN POSSIBLE TO STRETCH ACHILLES AND PREVENT EQUINUS CONTRACTURE. -WBAT RLE w/KNEE IMMOBILIZER ON. -Offload B/L heels w/rolled towels under ankles to minimize risk of heel ulcer formation. -R Ankle AFO splints as needed. -Continue antibiotics. -Care as per ID & primary medical teams. -Will follow. Barron Pardo MD (Orthopaedic Surgery).
[2019-11-28] MEDS: VANCOMYCIN 1 GRAM (PRE-DOCKED) 1,000 MG/250 ML BAG IVPB SCH (16:41)
--- NOTE | 2019-11-28 20:06 | CON.PSL ---
Psychology Consult Consult Specialty:: Clinical Psychology History Provided By: Medical Record, Caregiver (+) Current Medications: Active Medications Acetaminophen (Tylenol -) 1,000 mg PO Q6H PRN PRN Reason: PAIN Last Admin: 11/28/19 00:03 Dose: 1,000 mg Documented by: Albuterol Sulfate (Ventolin Hfa Inhaler -) 2 puff IH Q4H PRN PRN Reason: SHORT OF BREATH/WHEEZING Amino Acids (Prosource No Carb Liquid Pkt) 30 ml PO BID@0800,1730 [facility] Last Admin: 11/28/19 16:42 Dose: 30 ml Documented by: Apixaban (Eliquis -) 5 mg PO BID [facility] Last Admin: 11/28/19 10:30 Dose: 5 mg Documented by: Atorvastatin Calcium (Lipitor -) 10 mg PO HS [facility] Last Admin: 11/27/19 21:22 Dose: 10 mg Documented by: Clotrimazole (Lotrisone Cream (Small Tube)) 1 applic TP BID [facility] Last Admin: 11/28/19 10:31 Dose: 1 applic Documented by: Docusate Sodium (Colace -) 300 mg PO HS [facility] Last Admin: 11/27/19 21:22 Dose: Not Given Documented by: Emollient Ointment (Aquaphor -) 1 applic TP BID [facility] Last Admin: 11/28/19 10:30 Dose: 1 applic Documented by: Enoxaparin Sodium (Lovenox -) 70 mg SQ BID [facility] Gabapentin (Neurontin -) 100 mg PO BID [facility] Last Admin: 11/28/19 10:30 Dose: 100 mg Documented by: Vancomycin HCl (Vancomycin (Pre-Docked)) 1,000 mg in 250 mls @ 166.667 mls/hr IVPB DAILY@1300 [facility]; Protocol Last Admin: 11/28/19 16:41 Dose: 166.667 mls/hr Documented by: Melatonin (Melatonin) 3 mg PO HS PRN PRN Reason: INSOMNIA Last Admin: 11/28/19 00:03 Dose: 3 mg Documented by: Ondansetron HCl (Zofran Injection) 4 mg IVPUSH Q6H PRN PRN Reason: NAUSEA Last Admin: 11/27/19 12:54 Dose: 4 mg Documented by: Polyethylene Glycol (Miralax (For Daily Use) -) 17 gm PO DAILY [facility] Last Admin: 11/28/19 10:31 Dose: Not Given Documented by: Allergies: Allergies Allergy/AdvReac Type Severity Reaction Status Date / Time Sulfa (Sulfonamide Allergy Severe Rash Verified 08/20/19 11:56 Antibiotics) ibuprofen AdvReac Severe RBC'S Verified 08/20/19 11:57 DROPPED Does patient have pain?: Yes Pain Location Body Site: Knee Pain Description: Non-Descriptive Hx Alcohol Use: Yes (Socially) Hx Substance Use: No Hx Substance Use Treatment: No Current Medical Exam-Psy Orientation: Time, Person, Place Expressive: Coherent Receptive: Age Appropriate Comprehension of Spoken Words Hallucinations: Absent Thought Process: Intact Depression: Mild Hopelessness: No Loss of Interest: No Anxiety Level: Moderate Danger to Self and Others: No Sleep: Well Appetite: Poor Repeats 3 words told earlier: 2/3 Support System: Child/Children Leisure activities: Watch movies/TV Problem List - Problem (1) Mild depression Code(s): F32.0 - MAJOR DEPRESSIVE DISORDER, SINGLE EPISODE, MILD (2) Anxiety about health Code(s): F41.8 - OTHER SPECIFIED ANXIETY DISORDERS Assessment/Plan The patient was evaluated this evening. She was receptive to the assessment and cooperative. She was taught an anxiety reducing technique involving inhaling through her nose to a count of 4 and exhaling through her nose to a count of 5 or6 or7, depending on her comfort level, while thinking of her children or a pleasant place such as the [place]. Our plan is to continue treating her with relaxation exercises. Thank you for the referral.
[2019-11-28] MEDS: ATORVASTATIN CA 10 MG TABLET (FP) PO SCH (21:19)
[2019-11-28] MEDS: DOCUSATE SODIUM 100 MG CAPSULE (FP) PO SCH (21:20)
[2019-11-29] MEDS ORDERED: PT OWN MED DRAWER 7, Y5N ONE (09:39)
[2019-11-29] MEDS: GABAPENTIN 100 MG CAPSULE PO SCH ×2 (09:49→21:49)
[2019-11-29] MEDS: ACETAMINOPHEN 500 MG TABLET (FP) PO PRN ×2 (09:49→23:37)
[2019-11-29] MEDS: ENOXAPARIN NA (PORCINE) 80 MG/0.8 ML DISP.SYRIN SQ SCH ×3 (09:49→21:48)
[2019-11-29] MEDS: CLOTRIMAZOLE/BETAMET DIPROP 15 GM TUBE TP SCH ×2 (09:50→21:49)
[2019-11-29] MEDS: AMINO ACIDS/PROTEIN HYDROLYS 30 ML LIQUID.PKT PO SCH ×2 (09:50→18:00)
[2019-11-29] MEDS: POLYETHYLENE GLYCOL 3350 119 GM BTL PO SCH (09:50)
[2019-11-29] MEDS: MINERAL OIL/PET HY-PHL TOPICAL OINTMENT 454 GM JAR TP SCH ×2 (09:50→21:48)
--- NOTE | 2019-11-29 11:22 | PN ---
Progress Note, Physician Chief Complaint: Right knee wound infection History of Present Illness: NAD, sitting in chair, nausea resolved On Wound vac Right foot drop- is doing ROM exercises Seen by Orthopedic surgery, wound dressing changed with + formation of granulation tissue On IV Vanco Seen by Psychotherapy - Current Medication List Current Medications: Active Medications Acetaminophen (Tylenol -) 1,000 mg PO Q6H PRN PRN Reason: PAIN Last Admin: 11/29/19 09:49 Dose: 1,000 mg Documented by: Albuterol Sulfate (Ventolin Hfa Inhaler -) 2 puff IH Q4H PRN PRN Reason: SHORT OF BREATH/WHEEZING Amino Acids (Prosource No Carb Liquid Pkt) 30 ml PO BID@0800,1730 [facility] Last Admin: 11/29/19 09:50 Dose: 30 ml Documented by: Apixaban (Eliquis -) 5 mg PO BID [facility] Last Admin: 11/28/19 21:19 Dose: 5 mg Documented by: Atorvastatin Calcium (Lipitor -) 10 mg PO [facility] Last Admin: 11/28/19 21:19 Dose: 10 mg Documented by: Clotrimazole (Lotrisone Cream (Small Tube)) 1 applic TP BID [facility] Last Admin: 11/29/19 09:50 Dose: 1 applic Documented by: Docusate Sodium (Colace -) 300 mg PO [facility] Last Admin: 11/28/19 21:20 Dose: 300 mg Documented by: Emollient Ointment (Aquaphor -) 1 applic TP BID [facility] Last Admin: 11/29/19 09:50 Dose: 1 applic Documented by: Enoxaparin Sodium (Lovenox -) 70 mg SQ BID [facility] Last Admin: 11/29/19 10:00 Dose: 70 mg Documented by: Gabapentin (Neurontin -) 100 mg PO BID [facility] Last Admin: 11/29/19 09:49 Dose: 100 mg Documented by: Vancomycin HCl (Vancomycin (Pre-Docked)) 1,000 mg in 250 mls @ 166.667 mls/hr IVPB DAILY@1300 [facility]; Protocol Last Admin: 11/28/19 16:41 Dose: 166.667 mls/hr Documented by: Melatonin (Melatonin) 3 mg PO HS PRN PRN Reason: INSOMNIA Last Admin: 11/28/19 22:58 Dose: 3 mg Documented by: Ondansetron HCl (Zofran Injection) 4 mg IVPUSH Q6H PRN PRN Reason: NAUSEA Last Admin: 11/27/19 12:54 Dose: 4 mg Documented by: Polyethylene Glycol (Miralax (For Daily Use) -) 17 gm PO DAILY [facility] Last Admin: 11/29/19 09:50 Dose: Not Given Documented by: - Objective Vital Signs: Vital Signs Temperature 97.8 F 11/29/19 06:00 Pulse Rate 72 11/29/19 06:00 Respiratory Rate 11/29/19 06:00 Blood Pressure 118/50 L 11/29/19 06:00 O2 Sat by Pulse Oximetry (%) 96 11/28/19 21:00 Constitutional: Yes: Well Nourished, No Distress, Calm Cardiovascular: Yes: Regular Rate and Rhythm Respiratory: Yes: Regular, CTA Bilaterally Gastrointestinal: Yes: Normal Bowel Sounds, Soft Genitourinary: Yes: Incontinence Musculoskeletal: Yes: Muscle Weakness Extremities: Yes: Other (right knee immobilizer, right foot drop) Edema: No Peripheral Pulses WNL: Yes Neurological: Yes: Alert, Oriented Psychiatric: Yes: Alert, Oriented Labs: CBC, BMP 11/25/19 07:00 11/25/19 07:00 INR, PTT INR 1.35 (0.83-1.09) H 11/12/19 13:41 Problem List - Problems (1) Right foot drop Assessment/Plan: -[place]erl[place] over the foot for pt to be able to flex and extend her foot 10 x Q1H -Nursing staff educated to stimulate the ankle by flexing and extending it during their visits in patients room. -OOBTC daily with knee immobilizer -PT/OT/Rehab, OOBTC at least twice daily. -Offload B/L heels w/rolled towels under ankles to minimize risk of heel ulcer formation. Problems reviewed: Yes Code(s): M21.371 - FOOT DROP, RIGHT FOOT (2) Surgical wound infection Assessment/Plan: -Last cultures + MRSA -ID consult -IV Vanco -Wound vac-to facilitate granulation tissue, changed by orthopedic surgery Problems reviewed: Yes Code(s): T81.49XA - INFECTION FOLLOWING A PROCEDURE, OTHER SURGICAL SITE, INIT (3) S/P total knee replacement Assessment/Plan: -Seen by orthopedic surgery -WBAT with Right knee immobilizer -Pain management with tylenol 1g Q6H PRN -NO ROM Right knee (due to patellar ligament rupture). -Neurontin 100mg PO BID -Vac changes +/- bedside debridements q48-72 hours by surgical team only. -DVT ppx -Plan is for skin flap on 12/04/19 in OR with orthopedic and plastic surgery -On Lovenox 70 mg BID. Problems reviewed: Yes Code(s): Z96.659 - PRESENCE OF UNSPECIFIED ARTIFICIAL KNEE JOINT Qualifiers: (4) Hypertension Assessment/Plan: -Low sodium diet Problems reviewed: Yes Code(s): I10 - ESSENTIAL (PRIMARY) HYPERTENSION (5) History of DVT (deep vein thrombosis) Assessment/Plan: -In right popliteal and posterior tibial vein -Hold eliquis until after surgery -Started on Lovenox BID Problems reviewed: Yes Code(s): Z86.718 - PERSONAL HISTORY OF OTHER VENOUS THROMBOSIS AND EMBOLISM (6) Constipation Assessment/Plan: -resolved -Colace 300 mg po hs -Decrease miralax to PO daily Problems reviewed: Yes Code(s): K59.00 - CONSTIPATION, UNSPECIFIED (7) Hemorrhoids Assessment/Plan: -Resolved -d/c Anusol supp BID Problems reviewed: Yes Code(s): K64.9 - UNSPECIFIED HEMORRHOIDS (8) Nausea & vomiting Assessment/Plan: -Resolved -AXR F&U-results pending -Likely zinc causing GI symptoms Problems reviewed: Yes Code(s): R11.2 - NAUSEA WITH VOMITING, UNSPECIFIED (9) Suprapubic discomfort Assessment/Plan: -UA reviewed -UC-pending -Bladder scan- no retention Problems reviewed: Yes Code(s): R10.2 - PELVIC AND PERINEAL PAIN Assessment/Plan See problem list
[2019-11-29] MEDS: VANCOMYCIN 1 GRAM (PRE-DOCKED) 1,000 MG/250 ML BAG IVPB SCH (14:05)
[2019-11-29] MEDS: LACTOBACILLUS ACIDOPHILUS 1 TABLET PO SCH (14:08)
--- NOTE | 2019-11-29 14:40 | PN ---
Progress Note, Physician History of Present Illness: stable no new issues - Current Medication List Current Medications: Active Medications Acetaminophen (Tylenol -) 1,000 mg PO Q6H PRN PRN Reason: PAIN Last Admin: 11/29/19 09:49 Dose: 1,000 mg Documented by: Albuterol Sulfate (Ventolin Hfa Inhaler -) 2 puff IH Q4H PRN PRN Reason: SHORT OF BREATH/WHEEZING Amino Acids (Prosource No Carb Liquid Pkt) 30 ml PO BID@0800,1730 [facility] Last Admin: 11/29/19 09:50 Dose: 30 ml Documented by: Apixaban (Eliquis -) 5 mg PO BID [facility] Last Admin: 11/28/19 21:19 Dose: 5 mg Documented by: Atorvastatin Calcium (Lipitor -) 10 mg PO HS [facility] Last Admin: 11/28/19 21:19 Dose: 10 mg Documented by: Clotrimazole (Lotrisone Cream (Small Tube)) 1 applic TP BID [facility] Last Admin: 11/29/19 09:50 Dose: 1 applic Documented by: Emollient Ointment (Aquaphor -) 1 applic TP BID [facility] Last Admin: 11/29/19 09:50 Dose: 1 applic Documented by: Enoxaparin Sodium (Lovenox -) 70 mg SQ BID [facility] Last Admin: 11/29/19 10:00 Dose: 70 mg Documented by: Gabapentin (Neurontin -) 100 mg PO BID [facility] Last Admin: 11/29/19 09:49 Dose: 100 mg Documented by: Vancomycin HCl (Vancomycin (Pre-Docked)) 1,000 mg in 250 mls @ 166.667 mls/hr IVPB DAILY@1300 [facility]; Protocol Last Admin: 11/29/19 14:05 Dose: 166.667 mls/hr Documented by: Lactobacillus Acidophilus (Bacid -) 1 tab PO DAILY [facility] Last Admin: 11/29/19 14:08 Dose: 1 tab Documented by: Melatonin (Melatonin) 3 mg PO HS PRN PRN Reason: INSOMNIA Last Admin: 11/28/19 22:58 Dose: 3 mg Documented by: Ondansetron HCl (Zofran Injection) 4 mg IVPUSH Q6H PRN PRN Reason: NAUSEA Last Admin: 11/27/19 12:54 Dose: 4 mg Documented by: - Objective Vital Signs: Vital Signs Temperature 97.8 F 11/29/19 06:00 Pulse Rate 72 11/29/19 06:00 Respiratory Rate 20 11/29/19 09:00 Blood Pressure 118/50 L 11/29/19 06:00 O2 Sat by Pulse Oximetry (%) 96 11/29/19 09:00 Constitutional: Yes: No Distress, Calm Cardiovascular: Yes: S1, S2 Respiratory: Yes: Regular, CTA Bilaterally Gastrointestinal: Yes: Normal Bowel Sounds, Soft Musculoskeletal: Yes: WNL Extremities: Yes: WNL Neurological: Yes: Alert, Oriented Psychiatric: Yes: Alert, Oriented Labs: CBC, BMP 11/25/19 07:00 11/25/19 07:00 INR, PTT INR 1.35 (0.83-1.09) H 11/12/19 13:41 Assessment/Plan Problem List - Problems (1) History of DVT (deep vein thrombosis) Code(s): Z86.718 - PERSONAL HISTORY OF OTHER VENOUS THROMBOSIS AND EMBOLISM (2) Right foot drop Code(s): M21.371 - FOOT DROP, RIGHT FOOT (3) Surgical wound infection Code(s): T81.49XA - INFECTION FOLLOWING A PROCEDURE, OTHER SURGICAL SITE, INIT (4) S/P total knee replacement Code(s): Z96.659 - PRESENCE OF UNSPECIFIED ARTIFICIAL KNEE JOINT Qualifiers: (5) COVID-19 Code(s): U07.1 - COVID POSITIVE (6) Hypertension Code(s): I10 - ESSENTIAL (PRIMARY) HYPERTENSION (7) Inability to ambulate due to knee Code(s): R26.2 - DIFFICULTY IN WALKING, NOT ELSEWHERE CLASSIFIED (8) Yanet-prosthetic fracture around prosthetic knee Code(s): M97.8XXA - PERIPROSTH FRACTURE AROUND OTHER INTERNAL PROSTH JOINT, INIT; Z96.659 - PRESENCE OF UNSPECIFIED ARTIFICIAL KNEE JOINT (9) COPD (chronic obstructive pulmonary disease) Code(s): J44.9 - CHRONIC OBSTRUCTIVE PULMONARY DISEASE, UNSPECIFIED (10) History of revision of total knee arthroplasty Code(s): Z96.659 - PRESENCE OF UNSPECIFIED ARTIFICIAL KNEE JOINT Assessment/Plan 79 y.o. female with PMH of HTN, COPD, Rt pop DVT, COVID, s/p revision of RT TKR and debridements with tibial wound/hardware exposure and possible patellar rupture readmitted for further management Rt tibial wound infection s/p debridement +MRSA /wound vac Rt TKR s/p revisions Possible Rt patellar rupture continue current mgmt wound care continue abx plan for surgery on urine cx noted consider starting patient on augmentin 3 days before surgery
--- NOTE | 2019-11-29 15:04 | PROC ---
VAC Application - Indications Surgical A decision was made to utilize Negative Pressure Therapy (VAC or Veraflo) to assist and expedite wound closure through promotion of granulation tissue formation and/or help with debridement of fibrinous slough thus decreasing need for serial debridements. - Wound description Wound location: Other (right tibia) Wound Description: Tendon exposed: Yes, Bone exposed: Yes, Undermining: No - Device VAC Selection: NPT - Procedure Area cleansed. Prepped/draped. Black foam tailored to fit just inside of wound borders to encourage wound contracture. An occlusive dressing applied. Suction disc placed in location so as not to be uncomfortable for the patient or cause any pressure point. Good seal as verified by complete foam collapse and no leak on unit monitor. Pressure set to 125 mmHg, continuous. Dressing changes: T-Sat
[2019-11-29] MEDS: ATORVASTATIN CA 10 MG TABLET (FP) PO SCH (21:48)
[2019-11-29] MEDS: MELATONIN 1 MG TABLET PO PRN (23:38)
[2019-11-30] MEDS ORDERED: PT OWN MED DRAWER 7, Y5N ONE ×2 (09:31→21:42)
[2019-11-30] MEDS: LACTOBACILLUS ACIDOPHILUS 1 TABLET PO SCH (09:35)
[2019-11-30] MEDS: ENOXAPARIN NA (PORCINE) 80 MG/0.8 ML DISP.SYRIN SQ SCH ×2 (09:35→21:48)
[2019-11-30] MEDS: CLOTRIMAZOLE/BETAMET DIPROP 15 GM TUBE TP SCH ×2 (09:35→21:48)
[2019-11-30] MEDS: AMINO ACIDS/PROTEIN HYDROLYS 30 ML LIQUID.PKT PO SCH ×2 (09:35→17:03)
[2019-11-30] MEDS: MINERAL OIL/PET HY-PHL TOPICAL OINTMENT 454 GM JAR TP SCH ×2 (09:36→21:48)
[2019-11-30] MEDS: GABAPENTIN 100 MG CAPSULE PO SCH ×3 (09:36→21:49)
[2019-11-30] MEDS: ACETAMINOPHEN 500 MG TABLET (FP) PO PRN ×2 (09:36→23:14)
--- NOTE | 2019-11-30 11:04 | PN ---
Progress Note, Physician Chief Complaint: Right knee wound infection History of Present Illness: NAD, sitting in chair, nausea resolved On Wound vac Right foot drop- is doing ROM exercises Seen by Orthopedic surgery, wound dressing changed with + formation of granulation tissue On IV Vanco Seen by Psychotherapy c/o supra pubic tenderness UC:+ Strep D+ enterococcus As per pt , she was seeing hematology/oncology for Multiple Myeloma? Has seen Dr Lovelace in the past. GI Dr Orozco, last EGD+ Colonoscopy earlier this year at [facility] - Current Medication List Current Medications: Active Medications Acetaminophen (Tylenol -) 1,000 mg PO Q6H PRN PRN Reason: PAIN Last Admin: 11/30/19 09:36 Dose: 1,000 mg Documented by: Albuterol Sulfate (Ventolin Hfa Inhaler -) 2 puff IH Q4H PRN PRN Reason: SHORT OF BREATH/WHEEZING Amino Acids (Prosource No Carb Liquid Pkt) 30 ml PO BID@0800,1730 [facility] Last Admin: 11/30/19 09:35 Dose: 30 ml Documented by: Amoxicillin/Clavulanate Potassium (Augmentin - 875mg Tablet) 1 tab PO BID@0800,1730 [facility] Apixaban (Eliquis -) 5 mg PO BID [facility] Last Admin: 11/28/19 21:19 Dose: 5 mg Documented by: Atorvastatin Calcium (Lipitor -) 10 mg PO HS [facility] Last Admin: 11/29/19 21:48 Dose: 10 mg Documented by: Clotrimazole (Lotrisone Cream (Small Tube)) 1 applic TP BID [facility] Last Admin: 11/30/19 09:35 Dose: 1 applic Documented by: Emollient Ointment (Aquaphor -) 1 applic TP BID [facility] Last Admin: 11/30/19 09:36 Dose: 1 applic Documented by: Enoxaparin Sodium (Lovenox -) 70 mg SQ BID [facility] Last Admin: 11/30/19 09:35 Dose: 70 mg Documented by: Gabapentin (Neurontin -) 100 mg PO BID [facility] Last Admin: 11/30/19 09:36 Dose: 100 mg Documented by: Vancomycin HCl (Vancomycin (Pre-Docked)) 1,000 mg in 250 mls @ 166.667 mls/hr IVPB DAILY@1300 [facility]ARA; Protocol Last Admin: 11/29/19 14:05 Dose: 166.667 mls/hr Documented by: Lactobacillus Acidophilus (Bacid -) 1 tab PO DAILY [facility] Last Admin: 11/30/19 09:35 Dose: 1 tab Documented by: Melatonin (Melatonin) 3 mg PO HS PRN PRN Reason: INSOMNIA Last Admin: 11/29/19 23:38 Dose: 3 mg Documented by: Ondansetron HCl (Zofran Injection) 4 mg IVPUSH Q6H PRN PRN Reason: NAUSEA Last Admin: 11/27/19 12:54 Dose: 4 mg Documented by: - Objective Vital Signs: Vital Signs Temperature 98.6 F 11/30/19 06:44 Pulse Rate 73 11/30/19 06:44 Respiratory Rate 20 11/30/19 06:44 Blood Pressure 130/68 11/30/19 06:44 O2 Sat by Pulse Oximetry (%) 96 11/29/19 21:00 Constitutional: Yes: Well Nourished, No Distress, Calm Cardiovascular: Yes: Regular Rate and Rhythm Respiratory: Yes: Regular, CTA Bilaterally Gastrointestinal: Yes: Normal Bowel Sounds, Soft, Tenderness (suprapubic) Genitourinary: Yes: Incontinence Musculoskeletal: Yes: Muscle Weakness Extremities: Yes: Other (right knee immobilizer) Edema: No Peripheral Pulses WNL: Yes Wound/Incision: Yes: Dressing Dry and Intact (wound vac) Neurological: Yes: Alert, Oriented Psychiatric: Yes: Alert, Oriented Labs: CBC, BMP 11/25/19 07:00 11/25/19 07:00 INR, PTT INR 1.35 (0.83-1.09) H 11/12/19 13:41 Problem List - Problems (1) Right foot drop Assessment/Plan: -Kerlix over the foot for pt to be able to flex and extend her foot 10 x Q1H -Nursing staff educated to stimulate the ankle by flexing and extending it during their visits in patients room. -OOBTC daily with knee immobilizer -PT/OT/Rehab, OOBTC at least twice daily. -Offload B/L heels w/rolled towels under ankles to minimize risk of heel ulcer formation. Problems reviewed: Yes Code(s): M21.371 - FOOT DROP, RIGHT FOOT (2) Surgical wound infection Assessment/Plan: -Last cultures + MRSA -ID consult -IV Vanco -Wound vac-to facilitate granulation tissue, changed by orthopedic surgery -Skin flap with plastic surgery on 12/04/19 Problems reviewed: Yes Code(s): T81.49XA - INFECTION FOLLOWING A PROCEDURE, OTHER SURGICAL SITE, INIT (3) S/P total knee replacement Assessment/Plan: -Seen by orthopedic surgery -WBAT with Right knee immobilizer -Pain management with tylenol 1g Q6H PRN -NO ROM Right knee (due to patellar ligament rupture). -Neurontin 100mg PO BID, increase it to TID -Vac changes +/- bedside debridements q48-72 hours by surgical team only. -DVT ppx -Plan is for skin flap on 12/04/19 in OR with orthopedic and plastic surgery -On Lovenox 70 mg BID. -Cardiac clearance for procedure. Problems reviewed: Yes Code(s): Z96.659 - PRESENCE OF UNSPECIFIED ARTIFICIAL KNEE JOINT Qualifiers: (4) Hypertension Assessment/Plan: -Low sodium diet Problems reviewed: Yes Code(s): I10 - ESSENTIAL (PRIMARY) HYPERTENSION (5) History of DVT (deep vein thrombosis) Assessment/Plan: -In right popliteal and posterior tibial vein -Hold eliquis until after surgery -Started on Lovenox BID Problems reviewed: Yes Code(s): Z86.718 - PERSONAL HISTORY OF OTHER VENOUS THROMBOSIS AND EMBOLISM (6) Constipation Assessment/Plan: -resolved -Colace 100 mg po daily Problems reviewed: Yes Code(s): K59.00 - CONSTIPATION, UNSPECIFIED (7) Hemorrhoids Assessment/Plan: -Resolved -d/c Anusol supp BID Problems reviewed: Yes Code(s): K64.9 - UNSPECIFIED HEMORRHOIDS (8) Nausea & vomiting Assessment/Plan: -Resolved -AXR F&U-unremarkable -Likely zinc causing GI symptoms Problems reviewed: Yes Code(s): R11.2 - NAUSEA WITH VOMITING, UNSPECIFIED (9) Suprapubic discomfort Assessment/Plan: -UA reviewed -UC-+ UTI -Start Augmentin 1 tab po bid -Bladder scan- no retention Problems reviewed: Yes Code(s): R10.2 - PELVIC AND PERINEAL PAIN Assessment/Plan See problem list
--- NOTE | 2019-11-30 11:18 | PN ---
Progress Note, Physician History of Present Illness: c/o of suprapubic pain awaiting surgery for the leg - Current Medication List Current Medications: Active Medications Acetaminophen (Tylenol -) 1,000 mg PO Q6H PRN PRN Reason: PAIN Last Admin: 11/30/19 09:36 Dose: 1,000 mg Documented by: Albuterol Sulfate (Ventolin Hfa Inhaler -) 2 puff IH Q4H PRN PRN Reason: SHORT OF BREATH/WHEEZING Amino Acids (Prosource No Carb Liquid Pkt) 30 ml PO BID@0800,1730 [facility] Last Admin: 11/30/19 09:35 Dose: 30 ml Documented by: Amoxicillin/Clavulanate Potassium (Augmentin - 875mg Tablet) 1 tab PO BID@080 0,1730 [facility] Apixaban (Eliquis -) 5 mg PO BID [facility] Last Admin: 11/28/19 21:19 Dose: 5 mg Documented by: Atorvastatin Calcium (Lipitor -) 10 mg PO HS [facility] Last Admin: 11/29/19 21:48 Dose: 10 mg Documented by: Clotrimazole (Lotrisone Cream (Small Tube)) 1 applic TP BID [facility] Last Admin: 11/30/19 09:35 Dose: 1 applic Documented by: Docusate Sodium (Colace -) 100 mg PO DAILY [facility] Emollient Ointment (Aquaphor -) 1 applic TP BID [facility] Last Admin: 11/30/19 09:36 Dose: 1 applic Documented by: Enoxaparin Sodium (Lovenox -) 70 mg SQ BID [facility] Last Admin: 11/30/19 09:35 Dose: 70 mg Documented by: Gabapentin (Neurontin -) 100 mg PO TID [facility] Vancomycin HCl (Vancomycin (Pre-Docked)) 1,000 mg in 250 mls @ 166.667 mls/hr IVPB DAILY@1300 [facility]ARA; Protocol Last Admin: 11/29/19 14:05 Dose: 166.667 mls/hr Documented by: Lactobacillus Acidophilus (Bacid -) 1 tab PO DAILY [facility] Last Admin: 11/30/19 09:35 Dose: 1 tab Documented by: Melatonin (Melatonin) 3 mg PO HS PRN PRN Reason: INSOMNIA Last Admin: 11/29/19 23:38 Dose: 3 mg Documented by: Ondansetron HCl (Zofran Injection) 4 mg IVPUSH Q6H PRN PRN Reason: NAUSEA Last Admin: 11/27/19 12:54 Dose: 4 mg Documented by: - Objective Vital Signs: Vital Signs Temperature 98.6 F 11/30/19 06:44 Pulse Rate 73 11/30/19 06:44 Respiratory Rate 11/30/19 06:44 Blood Pressure 130/68 11/30/19 06:44 O2 Sat by Pulse Oximetry (%) 96 11/29/19 21:00 Constitutional: Yes: Calm, Mild Distress Cardiovascular: Yes: S1, S2 Respiratory: Yes: Regular, CTA Bilaterally Gastrointestinal: Yes: Normal Bowel Sounds, Soft Musculoskeletal: Yes: WNL Extremities: Yes: Other Integumentary: Yes: Other Wound/Incision: Yes: Other Neurological: Yes: Alert, Oriented Psychiatric: Yes: Alert, Oriented Labs: CBC, BMP 11/25/19 07:00 11/25/19 07:00 INR, PTT INR 1.35 (0.83-1.09) H 11/12/19 13:41 Assessment/Plan Problem List - Problems (1) History of DVT (deep vein thrombosis) Code(s): Z86.718 - PERSONAL HISTORY OF OTHER VENOUS THROMBOSIS AND EMBOLISM (2) Right foot drop Code(s): M21.371 - FOOT DROP, RIGHT FOOT (3) Surgical wound infection Code(s): T81.49XA - INFECTION FOLLOWING A PROCEDURE, OTHER SURGICAL SITE, INIT (4) S/P total knee replacement Code(s): Z96.659 - PRESENCE OF UNSPECIFIED ARTIFICIAL KNEE JOINT Qualifiers: (5) COVID-19 Code(s): U07.1 - COVID POSITIVE (6) Hypertension Code(s): I10 - ESSENTIAL (PRIMARY) HYPERTENSION (7) Inability to ambulate due to knee Code(s): R26.2 - DIFFICULTY IN WALKING, NOT ELSEWHERE CLASSIFIED (8) Yanet-prosthetic fracture around prosthetic knee Code(s): M97.8XXA - PERIPROSTH FRACTURE AROUND OTHER INTERNAL PROSTH JOINT, INIT; Z96.659 - PRESENCE OF UNSPECIFIED ARTIFICIAL KNEE JOINT (9) COPD (chronic obstructive pulmonary disease) Code(s): J44.9 - CHRONIC OBSTRUCTIVE PULMONARY DISEASE, UNSPECIFIED (10) History of revision of total knee arthroplasty Code(s): Z96.659 - PRESENCE OF UNSPECIFIED ARTIFICIAL KNEE JOINT Assessment/Plan 79 y.o. female with PMH of HTN, COPD, Rt pop DVT, COVID, s/p revision of RT TKR and debridements with tibial wound/hardware exposure and possible patellar rupture readmitted for further management Rt tibial wound infection s/p debridement +MRSA /wound vac Rt TKR s/p revisions Possible Rt patellar rupture continue current mgmt wound care continue abx plan for surgery on urine cx noted consider starting patient on augmentin 3 days before surgery
--- NOTE | 2019-11-30 13:29 | CON.CARD ---
Consult Consult Specialty:: cardiology. Reason for Consultation:: preop cardiac eval. - History of Present Illness History of Present Illness: 79 F with ho Mild to moderate AI, sp Knee replacement complicated by wound infection and is scheduled for skin flap placement. She has no prior history of coronary disease and a stress test a year ago was negative for ischemia. Prior to her knee problems had good functional capacity and no history of CHF or known arrhythmia. She is on AC for DVT. - History Source History Provided By: Patient, Medical Record - Past Medical History Cardio/Vascular: Yes: Deep Vein Thrombosis, HTN Pulmonary: Yes: COPD ...: No Infectious Disease: Yes: Other (COVID) - Past Surgical History Past Surgical History: Yes: Joint Replacement Additional Surgical History: knee revision/wound debridements - Alcohol/Substance Use Hx Alcohol Use: Yes (Socially) - Smoking History Smoking history: Never smoked Have you smoked in the past 12 months: No Home Medications - Allergies Allergies/Adverse Reactions: Allergies Allergy/AdvReac Type Severity Reaction Status Date / Time Sulfa (Sulfonamide Allergy Severe Rash Verified 08/20/19 11:56 Antibiotics) ibuprofen AdvReac Severe RBC'S Verified 08/20/19 11:57 DROPPED - Home Medications Home Medications: Ambulatory Orders Ascorbic Acid [Vitamin C] 1,000 mg PO DAILY 08/20/19 Apixaban [Eliquis -] 5 mg PO BID tablet 09/03/19 Albuterol Sulfate Inhaler - [Ventolin HFA Inhaler -] 2 puff IH Q4H PRN inhaler 11/09/19 Clotrimazole/Betamet Diprop [Lotrisone -] 1 applic TP BID tube 11/09/19 Metoclopramide HCl [Reglan -] 10 mg PO TIDAC tablet 11/09/19 Vancomycin/0.9 % Sod Chloride [Vanco 750 mg/250 ml-0.9% NaCl] 750 mg IV BID 30 Days plast..bag 11/09/19 Zinc Sulfate [Orazinc -] 220 mg PO DAILY@0800 14 Days capsule 11/09/19 Acetaminophen 650 mg PO Q6H 11/12/19 Amino Acids/Protein Hydrolys [Pro-Stat Awc Liquid Packet] 30 ml PO BID 11/12/19 Atorvastatin Calcium 10 mg PO HS 11/12/19 Ergocalciferol [Vitamin D2] 50,000 unit PO MONTHLY 11/12/19 Lanolin/Mineral Oil [Eucerin Original Lotion] 250 ml TP BID PRN 11/12/19 Melatonin 3 mg PO HS PRN 11/12/19 Review of Systems - Review of Systems Constitutional: reports: No Symptoms Eyes: reports: No Symptoms HENT: reports: No Symptoms Neck: reports: No Symptoms Cardiovascular: reports: No Symptoms, Edema. denies: Chest Pain, Palpitations, Shortness of Breath Respiratory: reports: No Symptoms Gastrointestinal: reports: No Symptoms Genitourinary: reports: No Symptoms Vital Signs: Vital Signs Temperature 98.6 F 11/30/19 06:44 Pulse Rate 73 11/30/19 06:44 Respiratory Rate 11/30/19 09:00 Blood Pressure 130/68 11/30/19 06:44 O2 Sat by Pulse Oximetry (%) 96 11/29/19 21:00 Constitutional: Yes: Well Nourished, No Distress Eyes: Yes: Conjunctiva Clear, EOM Intact HENT: Yes: Atraumatic, Normocephalic Neck: Yes: Supple, Trachea Midline Respiratory: Yes: Regular, CTA Bilaterally Gastrointestinal: Yes: Normal Bowel Sounds, Soft Cardiovascular: Yes: Regular Rate and Rhythm JVD: No Carotid Bruit: No PMI: Non-Displaced Heart Sounds: Yes: S1, S2 Murmur: No: Systolic Murmur, Diastolic Murmur Edema: Yes Edema: LLE: Trace, RLE: Trace - Other Data Labs, Other Data: CBC, BMP 11/25/19 07:00 11/25/19 07:00 INR, PTT INR 1.35 (0.83-1.09) H 11/12/19 13:41 NSR LAD and poor R wave progression Problem List - Problems (1) Preop cardiovascular exam Code(s): Z01.810 - ENCOUNTER FOR PREPROCEDURAL CARDIOVASCULAR EXAMINATION Assessment/Plan 79 F with ho Mild to moderate AI, sp Knee replacement complicated by wound infection and is scheduled for skin flap placement. She has no prior history of coronary disease and a stress test a year ago was negative for ischemia. Prior to her knee problems had good functional capacity and no history of CHF or known arrhythmia. She is on AC for DVT. Patient has history of mild-moderate and asymptomatic AI. She is at low Cardiac risk for surgery. No further testing is advised. Will see as needed.
[2019-11-30] MEDS: VANCOMYCIN 1 GRAM (PRE-DOCKED) 1,000 MG/250 ML BAG IVPB SCH (14:16)
--- NOTE | 2019-11-30 15:39 | PN ---
Progress Note (short form) - Note Progress Note: We incorporated relaxation exercises to increase deep breathing for anxiety and pain relief. In addition, cognitive behavior therapy was used to reframe any negative beliefs. Finally, Qi Gong exercises were taught to also assist with pain relief. The patient was receptive to the interventions and requested to have a session next week. Problem List - Problems (1) Mild depression Code(s): F32.0 - MAJOR DEPRESSIVE DISORDER, SINGLE EPISODE, MILD (2) Anxiety about health Code(s): F41.8 - OTHER SPECIFIED ANXIETY DISORDERS
[2019-11-30] MEDS: AMOX TR/POT CLAV 875MG/125MG TABLETS (FP) PO SCH (17:03)
[2019-11-30] MEDS: ATORVASTATIN CA 10 MG TABLET (FP) PO SCH (21:48)
[2019-11-30] MEDS: ONDANSETRON 4 MG/2 ML VIAL IVPUSH PRN (21:48)
[2019-11-30] MEDS: MELATONIN 1 MG TABLET PO PRN (21:49)
[2019-12-01] MEDS: GABAPENTIN 100 MG CAPSULE PO SCH ×3 (05:33→21:58)
--- NOTE | 2019-12-01 10:27 | PN ---
Progress Note, Physician - Current Medication List Current Medications: Active Medications Acetaminophen (Tylenol -) 1,000 mg PO Q6H PRN PRN Reason: PAIN Last Admin: 11/30/19 23:14 Dose: 1,000 mg Documented by: Albuterol Sulfate (Ventolin Hfa Inhaler -) 2 puff IH Q4H PRN PRN Reason: SHORT OF BREATH/WHEEZING Amino Acids (Prosource No Carb Liquid Pkt) 30 ml PO BID@0800,1730 [facility] Last Admin: 11/30/19 17:03 Dose: 30 ml Documented by: Amoxicillin/Clavulanate Potassium (Augmentin - 875mg Tablet) 1 tab PO BI D@0800,1730 [facility] Last Admin: 11/30/19 17:03 Dose: 1 tab Documented by: Apixaban (Eliquis -) 5 mg PO BID [facility] Last Admin: 11/28/19 21:19 Dose: 5 mg Documented by: Atorvastatin Calcium (Lipitor -) 10 mg PO HS [facility] Last Admin: 11/30/19 21:48 Dose: 10 mg Documented by: Clotrimazole (Lotrisone Cream (Small Tube)) 1 applic TP BID [facility] Last Admin: 11/30/19 21:48 Dose: 1 applic Documented by: Docusate Sodium (Colace -) 100 mg PO DAILY [facility] Emollient Ointment (Aquaphor -) 1 applic TP BID [facility] Last Admin: 11/30/19 21:48 Dose: 1 applic Documented by: Enoxaparin Sodium (Lovenox -) 70 mg SQ BID [facility] Last Admin: 11/30/19 21:48 Dose: 70 mg Documented by: Gabapentin (Neurontin -) 100 mg PO TID [facility] Last Admin: 12/01/19 05:33 Dose: 100 mg Documented by: Vancomycin HCl (Vancomycin (Pre-Docked)) 1,000 mg in 250 mls @ 166.667 mls/hr IVPB DAILY@1300 TARA; Protocol Last Admin: 11/30/19 14:16 Dose: 166.667 mls/hr Documented by: Lactobacillus Acidophilus (Bacid -) 1 tab PO DAILY [facility] Last Admin: 11/30/19 09:35 Dose: 1 tab Documented by: Melatonin (Melatonin) 3 mg PO HS PRN PRN Reason: INSOMNIA Last Admin: 11/30/19 21:49 Dose: 3 mg Documented by: Ondansetron HCl (Zofran Injection) 4 mg IVPUSH Q6H PRN PRN Reason: NAUSEA Last Admin: 11/30/19 21:48 Dose: 4 mg Documented by: - Objective Vital Signs: Vital Signs Temperature 97.8 F 12/01/19 08:55 Pulse Rate 86 12/01/19 08:55 Respiratory Rate 18 12/01/19 08:55 Blood Pressure 124/64 12/01/19 08:55 O2 Sat by Pulse Oximetry (%) 98 11/30/19 19:57 Cardiovascular: Yes: S1, S2 Respiratory: Yes: Regular, CTA Bilaterally Gastrointestinal: Yes: Normal Bowel Sounds, Soft Labs: CBC, BMP 11/25/19 07:00 11/25/19 07:00 INR, PTT INR 1.35 (0.83-1.09) H 11/12/19 13:41 Assessment/Plan - Problems (1) Right foot drop Assessment/Plan: -Kerlix over the foot for pt to be able to flex and extend her foot 10 x Q1H -Nursing staff educated to stimulate the ankle by flexing and extending it during their visits in patients room. -OOBTC daily with knee immobilizer -PT/OT/Rehab, OOBTC at least twice daily. -Offload B/L heels w/rolled towels under ankles to minimize risk of heel ulcer formation. Problems reviewed: Yes Code(s): M21.371 - FOOT DROP, RIGHT FOOT (2) Surgical wound infection Assessment/Plan: -Last cultures + MRSA -ID consult -IV Vanco -Wound vac-to facilitate granulation tissue, changed by orthopedic surgery -Skin flap with plastic surgery on 12/04/19 Problems reviewed: Yes Code(s): T81.49XA - INFECTION FOLLOWING A PROCEDURE, OTHER SURGICAL SITE, INIT (3) S/P total knee replacement Assessment/Plan: -Seen by orthopedic surgery -WBAT with Right knee immobilizer -Pain management with tylenol 1g Q6H PRN -NO ROM Right knee (due to patellar ligament rupture). -Neurontin 100mg PO BID, increase it to TID -Vac changes +/- bedside debridements q48-72 hours by surgical team only. -DVT ppx -Plan is for skin flap on 12/04/19 in OR with orthopedic and plastic surgery -On Lovenox 70 mg BID. -Cardiac clearance for procedure. Problems reviewed: Yes Code(s): Z96.659 - PRESENCE OF UNSPECIFIED ARTIFICIAL KNEE JOINT Qualifiers: (4) Hypertension Assessment/Plan: -Low sodium diet Problems reviewed: Yes Code(s): I10 - ESSENTIAL (PRIMARY) HYPERTENSION (5) History of DVT (deep vein thrombosis) Assessment/Plan: -In right popliteal and posterior tibial vein -Hold eliquis until after surgery -Started on Lovenox BID Problems reviewed: Yes Code(s): Z86.718 - PERSONAL HISTORY OF OTHER VENOUS THROMBOSIS AND EMBOLISM (6) Constipation Assessment/Plan: -resolved -Colace 100 mg po daily Problems reviewed: Yes Code(s): K59.00 - CONSTIPATION, UNSPECIFIED (7) Hemorrhoids Assessment/Plan: -Resolved -d/c Anusol supp BID Problems reviewed: Yes Code(s): K64.9 - UNSPECIFIED HEMORRHOIDS (8) Nausea & vomiting Assessment/Plan: -Resolved -AXR F&U-unremarkable -Likely zinc causing GI symptoms Problems reviewed: Yes Code(s): R11.2 - NAUSEA WITH VOMITING, UNSPECIFIED (9) Suprapubic discomfort Assessment/Plan: -UA reviewed -UC-+ UTI -Start Augmentin 1 tab po bid -Bladder scan- no retention Problems reviewed: Yes Code(s): R10.2 - PELVIC AND PERINEAL PAIN
[2019-12-01] MEDS: AMOX TR/POT CLAV 875MG/125MG TABLETS (FP) PO SCH ×2 (10:48→17:00)
[2019-12-01] MEDS: DOCUSATE SODIUM 100 MG CAPSULE (FP) PO SCH (10:48)
[2019-12-01] MEDS: LACTOBACILLUS ACIDOPHILUS 1 TABLET PO SCH (10:48)
[2019-12-01] MEDS: MINERAL OIL/PET HY-PHL TOPICAL OINTMENT 454 GM JAR TP SCH ×2 (10:48→22:05)
[2019-12-01] MEDS: AMINO ACIDS/PROTEIN HYDROLYS 30 ML LIQUID.PKT PO SCH ×2 (10:48→17:00)
[2019-12-01] MEDS: CLOTRIMAZOLE/BETAMET DIPROP 15 GM TUBE TP SCH ×2 (10:48→22:05)
[2019-12-01] MEDS: ENOXAPARIN NA (PORCINE) 80 MG/0.8 ML DISP.SYRIN SQ SCH ×2 (10:49→21:58)
[2019-12-01] MEDS: VANCOMYCIN 1 GRAM (PRE-DOCKED) 1,000 MG/250 ML BAG IVPB SCH (13:09)
[2019-12-01] MEDS: ACETAMINOPHEN 500 MG TABLET (FP) PO PRN (13:34)
--- NOTE | 2019-12-01 13:41 | PN ---
Progress Note, Physician History of Present Illness: Pt is alert, states she feels well today. Remains afebrile. - Current Medication List Current Medications: Active Medications Acetaminophen (Tylenol -) 1,000 mg PO Q6H PRN PRN Reason: PAIN Last Admin: 12/01/19 13:34 Dose: 1,000 mg Documented by: Albuterol Sulfate (Ventolin Hfa Inhaler -) 2 puff IH Q4H PRN PRN Reason: SHORT OF BREATH/WHEEZING Amino Acids (Prosource No Carb Liquid Pkt) 30 ml PO BID@0800,1730 [facility] Last Admin: 12/01/19 10:48 Dose: 30 ml Documented by: Amoxicillin/Clavulanate Potassium (Augmentin - 875mg Tablet) 1 tab PO BID@0800,1730 [facility] Last Admin: 12/01/19 10:48 Dose: 1 tab Documented by: Apixaban (Eliquis -) 5 mg PO BID [facility] Last Admin: 11/28/19 21:19 Dose: 5 mg Documented by: Atorvastatin Calcium (Lipitor -) 10 mg PO HS [facility] Last Admin: 11/30/19 21:48 Dose: 10 mg Documented by: Clotrimazole (Lotrisone Cream (Small Tube)) 1 applic TP BID [facility] Last Admin: 12/01/19 10:48 Dose: 1 applic Documented by: Docusate Sodium (Colace -) 100 mg PO DAILY [facility] Last Admin: 12/01/19 10:48 Dose: 100 mg Documented by: Emollient Ointment (Aquaphor -) 1 applic TP BID [facility] Last Admin: 12/01/19 10:48 Dose: 1 applic Documented by: Enoxaparin Sodium (Lovenox -) 70 mg SQ BID [facility] Last Admin: 12/01/19 10:49 Dose: 70 mg Documented by: Gabapentin (Neurontin -) 100 mg PO TID [facility] Last Admin: 12/01/19 13:10 Dose: 100 mg Documented by: Vancomycin HCl (Vancomycin (Pre-Docked)) 1,000 mg in 250 mls @ 166.667 mls/hr IVPB DAILY@1300 [facility]; Protocol Last Admin: 12/01/19 13:09 Dose: 166.667 mls/hr Documented by: Lactobacillus Acidophilus (Bacid -) 1 tab PO DAILY [facility] Last Admin: 12/01/19 10:48 Dose: 1 tab Documented by: Melatonin (Melatonin) 3 mg PO HS PRN PRN Reason: INSOMNIA Last Admin: 11/30/19 21:49 Dose: 3 mg Documented by: Ondansetron HCl (Zofran Injection) 4 mg IVPUSH Q6H PRN PRN Reason: NAUSEA Last Admin: 11/30/19 21:48 Dose: 4 mg Documented by: - Objective Vital Signs: Vital Signs Temperature 97.8 F 12/01/19 08:55 Pulse Rate 86 12/01/19 08:55 Respiratory Rate 18 12/01/19 08:55 Blood Pressure 124/64 12/01/19 08:55 O2 Sat by Pulse Oximetry (%) 98 11/30/19 19:57 Constitutional: Yes: No Distress, Calm Cardiovascular: Yes: Regular Rate and Rhythm Respiratory: Yes: Regular Gastrointestinal: Yes: Normal Bowel Sounds, Soft Genitourinary: Yes: WNL Wound/Incision: Yes: Other (RLE wound vac in place) Neurological: Yes: Alert, Oriented Labs: CBC, BMP 11/25/19 07:00 11/25/19 07:00 INR, PTT INR 1.35 (0.83-1.09) H 11/12/19 13:41 Microbiology 11/27/19 14:45 Urine - Urostomy Bag Urine Culture - Final Vr Ec Faecalis Yeast Like Organism Problem List - Problems (1) History of DVT (deep vein thrombosis) Code(s): Z86.718 - PERSONAL HISTORY OF OTHER VENOUS THROMBOSIS AND EMBOLISM (2) Right foot drop Code(s): M21.371 - FOOT DROP, RIGHT FOOT (3) Surgical wound infection Code(s): T81.49XA - INFECTION FOLLOWING A PROCEDURE, OTHER SURGICAL SITE, INIT (4) S/P total knee replacement Code(s): Z96.659 - PRESENCE OF UNSPECIFIED ARTIFICIAL KNEE JOINT Qualifiers: (5) COVID-19 Code(s): U07.1 - COVID POSITIVE (6) Hypertension Code(s): I10 - ESSENTIAL (PRIMARY) HYPERTENSION (7) Inability to ambulate due to knee Code(s): R26.2 - DIFFICULTY IN WALKING, NOT ELSEWHERE CLASSIFIED (8) Yanet-prosthetic fracture around prosthetic knee Code(s): M97.8XXA - PERIPROSTH FRACTURE AROUND OTHER INTERNAL PROSTH JOINT, INIT; Z96.659 - PRESENCE OF UNSPECIFIED ARTIFICIAL KNEE JOINT (9) COPD (chronic obstructive pulmonary disease) Code(s): J44.9 - CHRONIC OBSTRUCTIVE PULMONARY DISEASE, UNSPECIFIED (10) History of revision of total knee arthroplasty Code(s): Z96.659 - PRESENCE OF UNSPECIFIED ARTIFICIAL KNEE JOINT Assessment/Plan 79 y.o. female with PMH of HTN, COPD, Rt pop DVT, COVID, s/p revision of RT TKR and debridements with tibial wound/hardware exposure and possible patellar rupture readmitted for further management Rt tibial wound infection s/p debridement +MRSA /wound vac Rt TKR s/p revisions Rt patellar rupture VRE UTI vs colonization -- continue Vancomycin IV, augmentin -- repeat Vancomycin trough tomorrow -- continue monitor renal function -- surgery planned vitals stable
[2019-12-01] MEDS: ATORVASTATIN CA 10 MG TABLET (FP) PO SCH (21:58)
[2019-12-02] MEDS ORDERED: PT OWN MED DRAWER 7, Y5N ONE (00:50)
[2019-12-02] MEDS: MELATONIN 1 MG TABLET PO PRN ×2 (00:54→22:51)
[2019-12-02] MEDS: ACETAMINOPHEN 500 MG TABLET (FP) PO PRN ×2 (00:54→22:54)
[2019-12-02] MEDS: GABAPENTIN 100 MG CAPSULE PO SCH ×3 (05:52→21:18)
[2019-12-02] MEDS: AMINO ACIDS/PROTEIN HYDROLYS 30 ML LIQUID.PKT PO SCH ×2 (08:13→16:42)
[2019-12-02] MEDS: AMOX TR/POT CLAV 875MG/125MG TABLETS (FP) PO SCH ×2 (08:13→16:42)
[2019-12-02] MEDS: LACTOBACILLUS ACIDOPHILUS 1 TABLET PO SCH (10:16)
[2019-12-02] MEDS: DOCUSATE SODIUM 100 MG CAPSULE (FP) PO SCH (10:16)
[2019-12-02] MEDS: ENOXAPARIN NA (PORCINE) 80 MG/0.8 ML DISP.SYRIN SQ SCH ×2 (10:16→21:18)
[2019-12-02] MEDS: CLOTRIMAZOLE/BETAMET DIPROP 15 GM TUBE TP SCH ×2 (10:17→21:18)
[2019-12-02] MEDS: MINERAL OIL/PET HY-PHL TOPICAL OINTMENT 454 GM JAR TP SCH ×2 (10:17→21:17)
[2019-12-02] MEDS: ONDANSETRON 4 MG/2 ML VIAL IVPUSH PRN (10:44)
--- NOTE | 2019-12-02 11:04 | PN ---
Progress Note, Physician - Current Medication List Current Medications: Active Medications Acetaminophen (Tylenol -) 1,000 mg PO Q6H PRN PRN Reason: PAIN Last Admin: 12/02/19 00:54 Dose: 1,000 mg Documented by: Albuterol Sulfate (Ventolin Hfa Inhaler -) 2 puff IH Q4H PRN PRN Reason: SHORT OF BREATH/WHEEZING Amino Acids (Prosource No Carb Liquid Pkt) 30 ml PO BID@0800,1730 [facility] Last Admin: 12/02/19 08:13 Dose: 30 ml Documented by: Amoxicillin/Clavulanate Potassium (Augmentin - 875mg Tablet) 1 tab PO BI D@0800,1730 [facility] Last Admin: 12/02/19 08:13 Dose: 1 tab Documented by: Apixaban (Eliquis -) 5 mg PO BID [facility] Last Admin: 11/28/19 21:19 Dose: 5 mg Documented by: Atorvastatin Calcium (Lipitor -) 10 mg PO HS [facility] Last Admin: 12/01/19 21:58 Dose: 10 mg Documented by: Clotrimazole (Lotrisone Cream (Small Tube)) 1 applic TP BID [facility] Last Admin: 12/02/19 10:17 Dose: 1 applic Documented by: Docusate Sodium (Colace -) 100 mg PO DAILY [facility] Last Admin: 12/02/19 10:16 Dose: 100 mg Documented by: Emollient Ointment (Aquaphor -) 1 applic TP BID [facility] Last Admin: 12/02/19 10:17 Dose: 1 applic Documented by: Enoxaparin Sodium (Lovenox -) 70 mg SQ BID [facility] Last Admin: 12/02/19 10:16 Dose: 70 mg Documented by: Gabapentin (Neurontin -) 100 mg PO TID [facility] Last Admin: 12/02/19 05:52 Dose: 100 mg Documented by: Vancomycin HCl (Vancomycin (Pre-Docked)) 1,000 mg in 250 mls @ 166.667 mls/hr IVPB DAILY@1300 [facility]; Protocol Last Admin: 12/01/19 13:09 Dose: 166.667 mls/hr Documented by: Lactobacillus Acidophilus (Bacid -) 1 tab PO DAILY [facility] Last Admin: 12/02/19 10:16 Dose: 1 tab Documented by: Melatonin (Melatonin) 3 mg PO HS PRN PRN Reason: INSOMNIA Last Admin: 12/02/19 00:54 Dose: 3 mg Documented by: Ondansetron HCl (Zofran Injection) 4 mg IVPUSH Q6H PRN PRN Reason: NAUSEA Last Admin: 12/02/19 10:44 Dose: 4 mg Documented by: - Objective Vital Signs: Vital Signs Temperature 97.8 F 12/02/19 09:29 Pulse Rate 87 12/02/19 09:29 Respiratory Rate 18 12/02/19 09:29 Blood Pressure 130/76 12/02/19 09:29 O2 Sat by Pulse Oximetry (%) 97 12/01/19 21:00 Cardiovascular: Yes: Regular Rate and Rhythm Respiratory: Yes: Regular, CTA Bilaterally Gastrointestinal: Yes: Normal Bowel Sounds, Soft Labs: CBC, BMP 11/25/19 07:00 11/25/19 07:00 INR, PTT INR 1.35 (0.83-1.09) H 11/12/19 13:41 Assessment/Plan - Problems (1) Right foot drop Assessment/Plan: -Kerlix over the foot for pt to be able to flex and extend her foot 10 x Q1H -Nursing staff educated to stimulate the ankle by flexing and extending it during their visits in patients room. -OOBTC daily with knee immobilizer -PT/OT/Rehab, OOBTC at least twice daily. -Offload B/L heels w/rolled towels under ankles to minimize risk of heel ulcer formation. Problems reviewed: Yes Code(s): M21.371 - FOOT DROP, RIGHT FOOT (2) Surgical wound infection Assessment/Plan: -Last cultures + MRSA -ID consult -IV Vanco -Wound vac-to facilitate granulation tissue, changed by orthopedic surgery -Skin flap with plastic surgery on 12/04/19 Problems reviewed: Yes Code(s): T81.49XA - INFECTION FOLLOWING A PROCEDURE, OTHER SURGICAL SITE, INIT (3) S/P total knee replacement Assessment/Plan: -Seen by orthopedic surgery -WBAT with Right knee immobilizer -Pain management with tylenol 1g Q6H PRN -NO ROM Right knee (due to patellar ligament rupture). -Neurontin 100mg PO BID, increase it to TID -Vac changes +/- bedside debridements q48-72 hours by surgical team only. -DVT ppx -Plan is for skin flap on 12/04/19 in OR with orthopedic and plastic surgery -On Lovenox 70 mg BID. -Cardiac clearance for procedure. Problems reviewed: Yes Code(s): Z96.659 - PRESENCE OF UNSPECIFIED ARTIFICIAL KNEE JOINT Qualifiers: (4) Hypertension Assessment/Plan: -Low sodium diet Problems reviewed: Yes Code(s): I10 - ESSENTIAL (PRIMARY) HYPERTENSION (5) History of DVT (deep vein thrombosis) Assessment/Plan: -In right popliteal and posterior tibial vein -Hold eliquis until after surgery -Started on Lovenox BID Problems reviewed: Yes Code(s): Z86.718 - PERSONAL HISTORY OF OTHER VENOUS THROMBOSIS AND EMBOLISM (6) Constipation Assessment/Plan: -resolved -Colace 100 mg po daily Problems reviewed: Yes Code(s): K59.00 - CONSTIPATION, UNSPECIFIED (7) Hemorrhoids Assessment/Plan: -Resolved -d/c Anusol supp BID Problems reviewed: Yes Code(s): K64.9 - UNSPECIFIED HEMORRHOIDS (8) Nausea & vomiting Assessment/Plan: -Resolved -AXR F&U-unremarkable -Likely zinc causing GI symptoms Problems reviewed: Yes Code(s): R11.2 - NAUSEA WITH VOMITING, UNSPECIFIED (9) Suprapubic discomfort Assessment/Plan: -UA reviewed -UC-+ UTI -Start Augmentin 1 tab po bid -Bladder scan- no retention Problems reviewed: Yes Code(s): R10.2 - PELVIC AND PERINEAL PAIN
[2019-12-02] MEDS: VANCOMYCIN 1 GRAM (PRE-DOCKED) 1,000 MG/250 ML BAG IVPB SCH (13:09)
--- NOTE | 2019-12-02 18:25 | PN ---
Progress Note, Physician History of Present Illness: Pt without new complaints. Remains afebrile. Tolerating antibiotics. - Current Medication List Current Medications: Active Medications Acetaminophen (Tylenol -) 1,000 mg PO Q6H PRN PRN Reason: PAIN Last Admin: 12/02/19 00:54 Dose: 1,000 mg Documented by: Albuterol Sulfate (Ventolin Hfa Inhaler -) 2 puff IH Q4H PRN PRN Reason: SHORT OF BREATH/WHEEZING Amino Acids (Prosource No Carb Liquid Pkt) 30 ml PO BID@0800,1730 [facility] Last Admin: 12/02/19 16:42 Dose: 30 ml Documented by: Amoxicillin/Clavulanate Potassium (Augmentin - 875mg Tablet) 1 tab PO BID@0800,1730 [facility] Last Admin: 12/02/19 16:42 Dose: 1 tab Documented by: Apixaban (Eliquis -) 5 mg PO BID [facility] Last Admin: 11/28/19 21:19 Dose: 5 mg Documented by: Atorvastatin Calcium (Lipitor -) 10 mg PO HS [facility] Last Admin: 12/01/19 21:58 Dose: 10 mg Documented by: Clotrimazole (Lotrisone Cream (Small Tube)) 1 applic TP BID [facility] Last Admin: 12/02/19 10:17 Dose: 1 applic Documented by: Docusate Sodium (Colace -) 100 mg PO DAILY [facility] Last Admin: 12/02/19 10:16 Dose: 100 mg Documented by: Emollient Ointment (Aquaphor -) 1 applic TP BID [facility] Last Admin: 12/02/19 10:17 Dose: 1 applic Documented by: Enoxaparin Sodium (Lovenox -) 70 mg SQ BID [facility] Last Admin: 12/02/19 10:16 Dose: 70 mg Documented by: Gabapentin (Neurontin -) 100 mg PO TID [facility] Last Admin: 12/02/19 13:09 Dose: 100 mg Documented by: Vancomycin HCl (Vancomycin (Pre-Docked)) 1,000 mg in 250 mls @ 166.667 mls/hr IVPB DAILY@1300 [facility]; Protocol Last Admin: 12/02/19 13:09 Dose: 166.667 mls/hr Documented by: Lactobacillus Acidophilus (Bacid -) 1 tab PO DAILY [facility] Last Admin: 12/02/19 10:16 Dose: 1 tab Documented by: Melatonin (Melatonin) 3 mg PO HS PRN PRN Reason: INSOMNIA Last Admin: 12/02/19 00:54 Dose: 3 mg Documented by: Ondansetron HCl (Zofran Injection) 4 mg IVPUSH Q6H PRN PRN Reason: NAUSEA Last Admin: 12/02/19 10:44 Dose: 4 mg Documented by: - Objective Vital Signs: Vital Signs Temperature 98.3 F 12/02/19 14:00 Pulse Rate 100 H 12/02/19 14:00 Respiratory Rate 18 12/02/19 14:00 Blood Pressure 121/63 12/02/19 14:00 O2 Sat by Pulse Oximetry (%) 97 12/02/19 09:00 Constitutional: Yes: No Distress, Calm Cardiovascular: Yes: Regular Rate and Rhythm Respiratory: Yes: Regular Gastrointestinal: Yes: Normal Bowel Sounds, Soft Wound/Incision: Yes: Other (RLE +wound vac, dressing intact, immobilized) Neurological: Yes: Alert, Oriented Labs: CBC, BMP 11/25/19 07:00 11/25/19 07:00 INR, PTT INR 1.35 (0.83-1.09) H 11/12/19 13:41 Microbiology 11/27/19 14:45 Urine - Urostomy Bag Urine Culture - Final Vr Ec Faecalis Yeast Like Organism Problem List - Problems (1) History of DVT (deep vein thrombosis) Code(s): Z86.718 - PERSONAL HISTORY OF OTHER VENOUS THROMBOSIS AND EMBOLISM (2) Right foot drop Code(s): M21.371 - FOOT DROP, RIGHT FOOT (3) Surgical wound infection Code(s): T81.49XA - INFECTION FOLLOWING A PROCEDURE, OTHER SURGICAL SITE, INIT (4) S/P total knee replacement Code(s): Z96.659 - PRESENCE OF UNSPECIFIED ARTIFICIAL KNEE JOINT Qualifiers: (5) COVID-19 Code(s): U07.1 - COVID POSITIVE (6) Hypertension Code(s): I10 - ESSENTIAL (PRIMARY) HYPERTENSION (7) Inability to ambulate due to knee Code(s): R26.2 - DIFFICULTY IN WALKING, NOT ELSEWHERE CLASSIFIED (8) Yanet-prosthetic fracture around prosthetic knee Code(s): M97.8XXA - PERIPROSTH FRACTURE AROUND OTHER INTERNAL PROSTH JOINT, INIT; Z96.659 - PRESENCE OF UNSPECIFIED ARTIFICIAL KNEE JOINT (9) COPD (chronic obstructive pulmonary disease) Code(s): J44.9 - CHRONIC OBSTRUCTIVE PULMONARY DISEASE, UNSPECIFIED (10) History of revision of total knee arthroplasty Code(s): Z96.659 - PRESENCE OF UNSPECIFIED ARTIFICIAL KNEE JOINT Assessment/Plan 79 y.o. female with PMH of HTN, COPD, Rt pop DVT, COVID, s/p revision of RT TKR and debridements with tibial wound/hardware exposure and possible patellar rupture readmitted for further management Rt tibial wound infection s/p debridement +MRSA /wound vac Rt TKR s/p revisions Rt patellar rupture VRE UTI vs colonization -- continue current antibiotics -- repeat Vancomycin trough -- monitor renal function closely -- surgery planned
[2019-12-02] MEDS: ATORVASTATIN CA 10 MG TABLET (FP) PO SCH (21:18)
[2019-12-03] MEDS: GABAPENTIN 100 MG CAPSULE PO SCH ×3 (05:59→21:56)
--- NOTE | 2019-12-03 08:59 | PN ---
Progress Note, Physician History of Present Illness: stable feels better for surgery tomorrow - Current Medication List Current Medications: Active Medications Acetaminophen (Tylenol -) 1,000 mg PO Q6H PRN PRN Reason: PAIN Last Admin: 12/02/19 22:54 Dose: 1,000 mg Documented by: Albuterol Sulfate (Ventolin Hfa Inhaler -) 2 puff IH Q4H PRN PRN Reason: SHORT OF BREATH/WHEEZING Amino Acids (Prosource No Carb Liquid Pkt) 30 ml PO BID@0800,1730 [facility] Last Admin: 12/02/19 16:42 Dose: 30 ml Documented by: Amoxicillin/Clavulanate Potassium (Augmentin - 875mg Tablet) 1 tab PO BID@0800,1730 [facility] Last Admin: 12/02/19 16:42 Dose: 1 tab Documented by: Apixaban (Eliquis -) 5 mg PO BID [facility] Last Admin: 11/28/19 21:19 Dose: 5 mg Documented by: Atorvastatin Calcium (Lipitor -) 10 mg PO HS [facility] Last Admin: 12/02/19 21:18 Dose: 10 mg Documented by: Clotrimazole (Lotrisone Cream (Small Tube)) 1 applic TP BID [facility] Last Admin: 12/02/19 21:18 Dose: 1 applic Documented by: Docusate Sodium (Colace -) 100 mg PO DAILY [facility] Last Admin: 12/02/19 10:16 Dose: 100 mg Documented by: Emollient Ointment (Aquaphor -) 1 applic TP BID [facility] Last Admin: 12/02/19 21:17 Dose: 1 applic Documented by: Enoxaparin Sodium (Lovenox -) 70 mg SQ BID [facility] Last Admin: 12/02/19 21:18 Dose: 70 mg Documented by: Gabapentin (Neurontin -) 100 mg PO TID [facility] Last Admin: 12/03/19 05:59 Dose: 100 mg Documented by: Vancomycin HCl (Vancomycin (Pre-Docked)) 1,000 mg in 250 mls @ 166.667 mls/hr IVPB DAILY@1300 [facility]; Protocol Last Admin: 12/02/19 13:09 Dose: 166.667 mls/hr Documented by: Lactobacillus Acidophilus (Bacid -) 1 tab PO DAILY [facility] Last Admin: 12/02/19 10:16 Dose: 1 tab Documented by: Melatonin (Melatonin) 3 mg PO HS PRN PRN Reason: INSOMNIA Last Admin: 12/02/19 22:51 Dose: 3 mg Documented by: Ondansetron HCl (Zofran Injection) 4 mg IVPUSH Q6H PRN PRN Reason: NAUSEA Last Admin: 12/02/19 10:44 Dose: 4 mg Documented by: - Objective Vital Signs: Vital Signs Temperature 97.3 F L 12/03/19 06:00 Pulse Rate 77 12/03/19 06:00 Respiratory Rate 12/03/19 06:00 Blood Pressure 126/67 12/03/19 06:00 O2 Sat by Pulse Oximetry (%) 97 12/02/19 20:37 Constitutional: Yes: No Distress, Calm Cardiovascular: Yes: S1, S2 Respiratory: Yes: Regular, CTA Bilaterally Gastrointestinal: Yes: Normal Bowel Sounds, Soft Genitourinary: Yes: Other (urostomy) Musculoskeletal: Yes: WNL Extremities: Yes: WNL Neurological: Yes: Alert, Oriented Psychiatric: Yes: Alert, Oriented Labs: CBC, BMP 11/25/19 07:00 11/25/19 07:00 INR, PTT INR 1.35 (0.83-1.09) H 11/12/19 13:41 Assessment/Plan Problem List - Problems (1) History of DVT (deep vein thrombosis) Code(s): Z86.718 - PERSONAL HISTORY OF OTHER VENOUS THROMBOSIS AND EMBOLISM (2) Right foot drop Code(s): M21.371 - FOOT DROP, RIGHT FOOT (3) Surgical wound infection Code(s): T81.49XA - INFECTION FOLLOWING A PROCEDURE, OTHER SURGICAL SITE, INIT (4) S/P total knee replacement Code(s): Z96.659 - PRESENCE OF UNSPECIFIED ARTIFICIAL KNEE JOINT Qualifiers: (5) COVID-19 Code(s): U07.1 - COVID POSITIVE (6) Hypertension Code(s): I10 - ESSENTIAL (PRIMARY) HYPERTENSION (7) Inability to ambulate due to knee Code(s): R26.2 - DIFFICULTY IN WALKING, NOT ELSEWHERE CLASSIFIED (8) Yanet-prosthetic fracture around prosthetic knee Code(s): M97.8XXA - PERIPROSTH FRACTURE AROUND OTHER INTERNAL PROSTH JOINT, INIT; Z96.659 - PRESENCE OF UNSPECIFIED ARTIFICIAL KNEE JOINT (9) COPD (chronic obstructive pulmonary disease) Code(s): J44.9 - CHRONIC OBSTRUCTIVE PULMONARY DISEASE, UNSPECIFIED (10) History of revision of total knee arthroplasty Code(s): Z96.659 - PRESENCE OF UNSPECIFIED ARTIFICIAL KNEE JOINT Assessment/Plan 79 y.o. female with PMH of HTN, COPD, Rt pop DVT, COVID, s/p revision of RT TKR and debridements with tibial wound/hardware exposure and possible patellar rupture readmitted for further management Rt tibial wound infection s/p debridement +MRSA /wound vac Rt TKR s/p revisions Possible Rt patellar rupture abx for surgery tomorrow rest as per the team will await vanco levels rest as per the team
[2019-12-03] MEDS ORDERED: PT OWN MED DRAWER 7, Y5N ONE ×5 (09:01→23:14)
[2019-12-03] MEDS: AMINO ACIDS/PROTEIN HYDROLYS 30 ML LIQUID.PKT PO SCH ×2 (09:02→18:24)
[2019-12-03] MEDS: LACTOBACILLUS ACIDOPHILUS 1 TABLET PO SCH (09:02)
[2019-12-03] MEDS: DOCUSATE SODIUM 100 MG CAPSULE (FP) PO SCH (09:02)
[2019-12-03] MEDS: AMOX TR/POT CLAV 875MG/125MG TABLETS (FP) PO SCH (09:02)
[2019-12-03] MEDS: MINERAL OIL/PET HY-PHL TOPICAL OINTMENT 454 GM JAR TP SCH ×2 (09:02→21:54)
[2019-12-03] MEDS: CLOTRIMAZOLE/BETAMET DIPROP 15 GM TUBE TP SCH ×2 (09:03→21:54)
[2019-12-03] MEDS: ENOXAPARIN NA (PORCINE) 80 MG/0.8 ML DISP.SYRIN SQ SCH (09:03)
--- NOTE | 2019-12-03 10:22 | PN ---
Progress Note, Physician Chief Complaint: Right knee wound infection History of Present Illness: NAD, sitting in chair, nausea resolved On Wound vac Right foot drop- is doing ROM exercises Seen by Orthopedic surgery, wound dressing changed with + formation of granulation tissue On IV Vanco Seen by Psychotherapy c/o supra pubic tenderness UC:+ Strep D+ enterococcus As per pt , she was seeing hematology/oncology for Multiple Myeloma? Has seen Dr Lovelace in the past. GI Dr Orozco, last EGD+ Colonoscopy earlier this year at [facility] in [place]- on Augmentin day 4 Cleared by cardiology for surgery - Current Medication List Current Medications: Active Medications Acetaminophen (Tylenol -) 1,000 mg PO Q6H PRN PRN Reason: PAIN Last Admin: 12/02/19 22:54 Dose: 1,000 mg Documented by: Albuterol Sulfate (Ventolin Hfa Inhaler -) 2 puff IH Q4H PRN PRN Reason: SHORT OF BREATH/WHEEZING Amino Acids (Prosource No Carb Liquid Pkt) 30 ml PO BID@0800,1730 [facility] Last Admin: 12/03/19 09:02 Dose: 30 ml Documented by: Amoxicillin/Clavulanate Potassium (Augmentin - 875mg Tablet) 1 tab PO BID@0800,1730 [facility] Last Admin: 12/03/19 09:02 Dose: 1 tab Documented by: Apixaban (Eliquis -) 5 mg PO BID [facility] Last Admin: 11/28/19 21:19 Dose: 5 mg Documented by: Atorvastatin Calcium (Lipitor -) 10 mg PO HS [facility] Last Admin: 12/02/19 21:18 Dose: 10 mg Documented by: Clotrimazole (Lotrisone Cream (Small Tube)) 1 applic TP BID [facility] Last Admin: 12/03/19 09:03 Dose: 1 applic Documented by: Docusate Sodium (Colace -) 100 mg PO DAILY [facility] Last Admin: 12/03/19 09:02 Dose: 100 mg Documented by: Emollient Ointment (Aquaphor -) 1 applic TP BID [facility] Last Admin: 12/03/19 09:02 Dose: 1 applic Documented by: Enoxaparin Sodium (Lovenox -) 70 mg SQ BID [facility] Last Admin: 12/03/19 09:03 Dose: 70 mg Documented by: Gabapentin (Neurontin -) 100 mg PO TID [facility] Last Admin: 06/22/20 05:59 Dose: 100 mg Documented by: Vancomycin HCl (Vancomycin (Pre-Docked)) 1,000 mg in 250 mls @ 166.667 mls/hr IVPB DAILY@1300 [facility]; Protocol Last Admin: 12/02/19 13:09 Dose: 166.667 mls/hr Documented by: Lactobacillus Acidophilus (Bacid -) 1 tab PO DAILY [facility] Last Admin: 12/03/19 09:02 Dose: 1 tab Documented by: Melatonin (Melatonin) 3 mg PO HS PRN PRN Reason: INSOMNIA Last Admin: 12/02/19 22:51 Dose: 3 mg Documented by: Ondansetron HCl (Zofran Injection) 4 mg IVPUSH Q6H PRN PRN Reason: NAUSEA Last Admin: 12/02/19 10:44 Dose: 4 mg Documented by: - Objective Vital Signs: Vital Signs Temperature 98.6 F 12/03/19 09:00 Pulse Rate 66 12/03/19 09:00 Respiratory Rate 20 12/03/19 09:00 Blood Pressure 110/70 12/03/19 09:00 O2 Sat by Pulse Oximetry (%) 97 12/03/19 09:00 Constitutional: Yes: Well Nourished, No Distress, Calm Cardiovascular: Yes: Regular Rate and Rhythm Respiratory: Yes: Regular, CTA Bilaterally Gastrointestinal: Yes: Normal Bowel Sounds, Soft, Tenderness (Supra pubic tenderness) Genitourinary: Yes: Incontinence Musculoskeletal: Yes: Muscle Weakness Extremities: Yes: WNL, Other (Right knee immobililzer+ Right foot drop) Edema: No Peripheral Pulses WNL: Yes Neurological: Yes: Alert, Oriented Psychiatric: Yes: Alert, Oriented Labs: CBC, BMP 11/25/19 07:00 11/25/19 07:00 INR, PTT INR 1.35 (0.83-1.09) H 11/12/19 13:41 Problem List - Problems (1) Right foot drop Assessment/Plan: -Kerlix over the foot for pt to be able to flex and extend her foot 10 x Q1H -Nursing staff educated to stimulate the ankle by flexing and extending it during their visits in patients room. -OOBTC daily with knee immobilizer -PT/OT/Rehab, OOBTC at least twice daily. -Offload B/L heels w/rolled towels under ankles to minimize risk of heel ulcer formation. Problems reviewed: Yes Code(s): M21.371 - FOOT DROP, RIGHT FOOT (2) Surgical wound infection Assessment/Plan: -Last cultures + MRSA -ID consult -IV Vanco -Wound vac-to facilitate granulation tissue, changed by orthopedic surgery -Skin flap with plastic surgery on 12/04/19 Problems reviewed: Yes Code(s): T81.49XA - INFECTION FOLLOWING A PROCEDURE, OTHER SURGICAL SITE, INIT (3) S/P total knee replacement Assessment/Plan: -Seen by orthopedic surgery -WBAT with Right knee immobilizer -Pain management with tylenol 1g Q6H PRN -NO ROM Right knee (due to patellar ligament rupture). -Neurontin 100mg PO BID, increase it to TID- tolerating well -Vac changes +/- bedside debridements q48-72 hours by surgical team only. -DVT ppx -Plan is for skin flap on 12/04/19 in OR with orthopedic and plastic surgery -On Lovenox 70 mg BID. -Cleared by cardiology for surgery -Pt medically stable and cleared for surgery Problems reviewed: Yes Code(s): Z96.659 - PRESENCE OF UNSPECIFIED ARTIFICIAL KNEE JOINT Qualifiers: (4) Hypertension Assessment/Plan: -Low sodium diet Problems reviewed: Yes Code(s): I10 - ESSENTIAL (PRIMARY) HYPERTENSION (5) History of DVT (deep vein thrombosis) Assessment/Plan: -In right popliteal and posterior tibial vein -Hold eliquis until after surgery -Lovenox BID, hold AM Problems reviewed: Yes Code(s): Z86.718 - PERSONAL HISTORY OF OTHER VENOUS THROMBOSIS AND EMBOLISM (6) Constipation Assessment/Plan: -resolved -Colace 100 mg po daily Problems reviewed: Yes Code(s): K59.00 - CONSTIPATION, UNSPECIFIED (7) Hemorrhoids Assessment/Plan: -Resolved -d/c Anusol supp BID Problems reviewed: Yes Code(s): K64.9 - UNSPECIFIED HEMORRHOIDS (8) Nausea & vomiting Assessment/Plan: -Resolved -AXR F&U-unremarkable -Likely zinc causing GI symptoms Problems reviewed: Yes Code(s): R11.2 - NAUSEA WITH VOMITING, UNSPECIFIED (9) Suprapubic discomfort Assessment/Plan: -UA reviewed -UC-+ VRE -Bladder scan- no retention Problems reviewed: Yes Code(s): R10.2 - PELVIC AND PERINEAL PAIN (10) VRE (vancomycin resistant enterococcus) culture positive Assessment/Plan: -Change augmentin to Unasyn Problems reviewed: Yes Code(s): Z22.39 - CARRIER OF OTHER SPECIFIED BACTERIAL DISEASES Assessment/Plan See problem list
[2019-12-03] MEDS: AMPICILLIN NA/SULBACTAM NA 3 GM in SODIUM CHLORIDE 100 ML IVPB SCH ×3 (11:48→21:54)
[2019-12-03 14:14] LABS: BASO % 0.7 % (0-2.0); EOS % 1.1 % (0-4.5); HEMOGLOBIN 11.8 GM/dL (10.7-15.3); LYMPH % 13.2 % (8-40); MCH 31.8 pg (25.7-33.7); MCHC 32.7 g/dl (32.0-36.0); MEAN CELL VOLUME 97.3 fl (80-96); MEAN PLT VOLUME 6.6 fl (7.5-11.1); MONO % 8.6 % (3.8-10.2); NEUT % 76.4 % (42.8-82.8); PLATELET COUNT 353 K/MM3 (134-434); RDW 14.2 % (11.6-15.6); WHITE BLOOD COUNT 6.1 K/mm3 (4.0-10.0)
[2019-12-03 14:38] LABS: BILIRUBIN,TOTAL 0.3 mg/dL (0.2-1); BLOOD UREA NITROGEN 19.5 mg/dL (7-18); CALCIUM 9.6 mg/dL (8.5-10.1); CREATININE 0.6 mg/dL (0.55-1.3); POTASSIUM 4.4 mmol/L (3.5-5.1); TOT PROT 5.1 g/dl (6.4-8.2)
[2019-12-03 14:55] LABS: INR 1.11 (0.83-1.09); PROTHROMBIN TIME (PATIENT) 13.1 SEC (9.7-13.0)
[2019-12-03 14:57] LABS: ACTIVATED PTT 45.1 SECONDS (25.2-36.5)
[2019-12-03] MEDS: VANCOMYCIN 1 GRAM (PRE-DOCKED) 1,000 MG/250 ML BAG IVPB SCH (15:21)
[2019-12-03] MEDS: ACETAMINOPHEN 500 MG TABLET (FP) PO PRN ×2 (15:28→23:16)
--- NOTE | 2019-12-03 16:10 | SPA.PREOP ---
- PRE-OP NOTE Dx: 79F s/p complex revision right total knee replacement/reconstruction 08/30/19 now p/w soft tissue breakdown and wound overlying right tibial tubercle; exposed ortho hardware Planned Procedure: RLE medial gastrocnemius rotation flap, stsg 12/03 Surgeon: Luana (Plastics) Last Vital Signs Temp Pulse Resp BP Pulse Ox 97.6 F 92 H 20 110/66 97 12/03/19 13:51 12/03/19 13:51 12/03/19 13:51 12/03/19 13:51 12/03/19 09:00 Lab Results WBC 6.1 K/mm3 (4.0-10.0) 12/03/19 13:45 RBC 3.70 M/mm3 (3.60-5.2) 12/03/19 13:45 Hgb 11.8 GM/dL (10.7-15.3) 12/03/19 13:45 Hct 36.0 % (32.4-45.2) 12/03/19 13:45 MCV 97.3 fl (80-96) H 12/03/19 13:45 MCHC 32.7 g/dl (32.0-36.0) 12/03/19 13:45 RDW 14.2 % (11.6-15.6) 12/03/19 13:45 Plt Count 353 K/MM3 (134-434) D 12/03/19 13:45 INR 1.11 (0.83-1.09) H 12/03/19 13:45 Sodium 133 mmol/L (136-145) L 12/03/19 13:45 Potassium 4.4 mmol/L (3.5-5.1) 12/03/19 13:45 Chloride 99 mmol/L (98-107) 12/03/19 13:45 Carbon Dioxide 28 mmol/L (21-32) 12/03/19 13:45 Anion Gap 5 MMOL/L (8-16) L 12/03/19 13:45 BUN 19.5 mg/dL (7-18) H 12/03/19 13:45 Creatinine 0.6 mg/dL (0.55-1.3) 12/03/19 13:45 Random Glucose 115 mg/dL (74-106) H 12/03/19 13:45 Calcium 9.6 mg/dL (8.5-10.1) 12/03/19 13:45 Blood Type O POSITIVE 11/12/19 13:41 Antibody Screen Negative 11/12/19 13:41 Serology Test 12/01/19 05:30 COVID-19 (HANNY) Pending - ASSESSMENT/PLAN 1. Make NPO after midnight except po meds 2. GI/DVT PPX 3. Medical optimization / clearance 4. Consent to be obtained by surgeon after risks, benefits and alternatives discussed with patient and or Health Care Proxy. <Leander Beth P - Last Filed: 12/03/19 16:14> - PRE-OP NOTE Dx: Planned Procedure: Surgeon: Last Vital Signs Temp Pulse Resp BP Pulse Ox 98.2 F 88 20 122/71 97 12/03/19 17:42 12/03/19 17:42 12/03/19 17:42 12/03/19 17:42 12/03/19 09:00 Lab Results WBC 6.1 K/mm3 (4.0-10.0) 12/03/19 13:45 RBC 3.70 M/mm3 (3.60-5.2) 12/03/19 13:45 Hgb 11.8 GM/dL (10.7-15.3) 12/03/19 13:45 Hct 36.0 % (32.4-45.2) 12/03/19 13:45 MCV 97.3 fl (80-96) H 12/03/19 13:45 MCHC 32.7 g/dl (32.0-36.0) 12/03/19 13:45 RDW 14.2 % (11.6-15.6) 12/03/19 13:45 Plt Count 353 K/MM3 (134-434) D 12/03/19 13:45 INR 1.11 (0.83-1.09) H 12/03/19 13:45 Sodium 133 mmol/L (136-145) L 12/03/19 13:45 Potassium 4.4 mmol/L (3.5-5.1) 12/03/19 13:45 Chloride 99 mmol/L (98-107) 12/03/19 13:45 Carbon Dioxide 28 mmol/L (21-32) 12/03/19 13:45 Anion Gap 5 MMOL/L (8-16) L 12/03/19 13:45 BUN 19.5 mg/dL (7-18) H 12/03/19 13:45 Creatinine 0.6 mg/dL (0.55-1.3) 12/03/19 13:45 Random Glucose 115 mg/dL (74-106) H 12/03/19 13:45 Calcium 9.6 mg/dL (8.5-10.1) 12/03/19 13:45 Blood Type O POSITIVE 11/12/19 13:41 Antibody Screen Negative 11/12/19 13:41 Patient seen on the floor, Procedure described in simple language. Questions and concerns expressed and attended to. Patient main concern about the Prosthesis..will it be removed? I helped her understand the plan for the Reconstruction and hoping close the Open Knee with a Muscle flap and skin graft. I plan to call Masoud her son mary . Dr Brasher 12/03/2019 Name & Signature of Responsible Clinical Staff Member Date By signing, I attest that I have participated with the treatment staff in the development of this treatment plan Signature of Patient Date Signature of Parent if Patient is a Minor Date Signature of Physician, Physician's Motion Picture Film Examiner, Licensed Psychologist, Date Nurse Practitioner or Licensed Clinical Truck Sales Representative - ASSESSMENT/PLAN 1. Make NPO after midnight except po meds 2. GI/DVT PPX 3. Medical optimization / clearance 4. Consent to be obtained by surgeon after risks, benefits and alternatives discussed with patient and or Health Care Proxy. <Vanessa Craft - Last Filed: 12/03/19 21:25> Problem List - Problems (1) Anxiety about health Code(s): F41.8 - OTHER SPECIFIED ANXIETY DISORDERS (2) History of DVT (deep vein thrombosis) Code(s): Z86.718 - PERSONAL HISTORY OF OTHER VENOUS THROMBOSIS AND EMBOLISM (3) Surgical wound infection Code(s): T81.49XA - INFECTION FOLLOWING A PROCEDURE, OTHER SURGICAL SITE, INIT (4) S/P total knee replacement Code(s): Z96.659 - PRESENCE OF UNSPECIFIED ARTIFICIAL KNEE JOINT <Leander Beth P - Last Filed: 12/03/19 16:14> Visit type - Case Type Case Type: ED Admission <Leander Beth P - Last Filed: 12/03/19 16:14>
[2019-12-03] MEDS: ATORVASTATIN CA 10 MG TABLET (FP) PO SCH (21:56)
[2019-12-03] MEDS: MELATONIN 1 MG TABLET PO PRN (23:17)
[2019-12-04] MEDS: AMPICILLIN NA/SULBACTAM NA 3 GM in SODIUM CHLORIDE 100 ML IVPB SCH ×4 (02:23→21:09)
[2019-12-04] MEDS: GABAPENTIN 100 MG CAPSULE PO SCH ×3 (05:40→21:04)
[2019-12-04] MEDS: AMINO ACIDS/PROTEIN HYDROLYS 30 ML LIQUID.PKT PO SCH ×3 (07:24→17:36)
[2019-12-04] MEDS ORDERED: MIDAZOLAM HCL 2 MG/2 ML SINGLE DOSE VIAL ONE ×2 (07:52→13:55)
[2019-12-04 08:07] LABS: INR 0.97 (0.83-1.09); PROTHROMBIN TIME (PATIENT) 11.5 SEC (9.7-13.0)
[2019-12-04 08:10] LABS: ACTIVATED PTT 30.9 SECONDS (25.2-36.5)
[2019-12-04 08:11] LABS: BASO % 1.1 % (0-2.0); EOS % 2.8 % (0-4.5); HEMATOCRIT 34.3 % (32.4-45.2); HEMOGLOBIN 11.3 GM/dL (10.7-15.3); LYMPH % 20.1 % (8-40); MCH 32.4 pg (25.7-33.7); MEAN CELL VOLUME 98.1 fl (80-96); MONO % 9.5 % (3.8-10.2); NEUT % 66.5 % (42.8-82.8); PLATELET COUNT 365 K/MM3 (134-434); RDW 14.3 % (11.6-15.6)
[2019-12-04] MEDS ORDERED: PROPOFOL 20 ML ONE (08:14)
[2019-12-04] MEDS ORDERED: ROCURONIUM BROMIDE 100 MG/10 ML VIAL ONE (08:14)
[2019-12-04 08:31] LABS: BILIRUBIN,TOTAL 0.9 mg/dL (0.2-1); BLOOD UREA NITROGEN 18.4 mg/dL (7-18); CALCIUM 9.7 mg/dL (8.5-10.1); CREATININE 0.4 mg/dL (0.55-1.3); POTASSIUM 4.3 mmol/L (3.5-5.1); TOT PROT 5.2 g/dl (6.4-8.2)
[2019-12-04] MEDS ORDERED: ceFAZolin SODIUM 1 GM VIAL IVPB ONE (08:32)
[2019-12-04] MEDS: MINERAL OIL/PET HY-PHL TOPICAL OINTMENT 454 GM JAR TP SCH ×2 (09:32→21:05)
[2019-12-04] MEDS: LACTOBACILLUS ACIDOPHILUS 1 TABLET PO SCH (09:32)
[2019-12-04] MEDS: DOCUSATE SODIUM 100 MG CAPSULE (FP) PO SCH (09:32)
[2019-12-04] MEDS: CLOTRIMAZOLE/BETAMET DIPROP 15 GM TUBE TP SCH ×2 (09:33→21:04)
--- NOTE | 2019-12-04 11:18 | PN ---
Progress Note (short form) - Note Progress Note: 79F s/p right knee I&D, removal of hardware, polyethylene liner exchange (orthopaedics) and medial gastrocnemius flap wound coverage (plastics) POD #0. -Pt. to remain in house for wound care. -Pain control. -DVT PPx: -Chemical: as per plastic surgical team. -Mechanical: LLE SORAYA's, SCD's. -Incentive spirometry. -PT/OT/Rehab, OOBTC at least twice daily. -WBAT RLE in [place] brace locked in extension; NO RIGHT KNEE RANGE OF MOTION. -Offload B/L heels w/rolled towels under ankles to minimize risk of heel ulcer formation. -RLE AFO splint at all times; offloading R AFO splint to minimize heel ulcer formation risk. -Continue antibiotics x 5 days. -Care as per primary medical & plastics teams. -Will follow. Barron Pardo MD (Orthopaedic Surgery).
--- NOTE | 2019-12-04 11:20 | PN ---
Progress Note, Physician Chief Complaint: Right knee wound infection History of Present Illness: NAD, sitting in chair, nausea resolved On Wound vac Right foot drop- is doing ROM exercises Seen by Orthopedic surgery, wound dressing changed with + formation of granulation tissue On IV Vanco Seen by Psychotherapy c/o supra pubic tenderness UC:+ Strep D+ enterococcus As per pt , she was seeing hematology/oncology for Multiple Myeloma? Has seen Dr Lovelace in the past. GI Dr Orozco, last EGD+ Colonoscopy earlier this year at [facility] in [place]- on Augmentin day 4 Cleared by cardiology for surgery s/p right knee I&D, removal of hardware, polyethylene liner exchange (orthopaedics) and medial gastrocnemius flap wound coverage (plastics) POD #0. - Current Medication List Current Medications: Active Medications Acetaminophen (Tylenol -) 1,000 mg PO Q6H PRN PRN Reason: PAIN Last Admin: 12/03/19 23:16 Dose: 1,000 mg Documented by: Albuterol Sulfate (Ventolin Hfa Inhaler -) 2 puff IH Q4H PRN PRN Reason: SHORT OF BREATH/WHEEZING Amino Acids (Prosource No Carb Liquid Pkt) 30 ml PO BID@0800,1730 [facility] Last Admin: 12/04/19 07:24 Dose: Not Given Documented by: Apixaban (Eliquis -) 5 mg PO BID [facility] Last Admin: 11/28/19 21:19 Dose: 5 mg Documented by: Atorvastatin Calcium (Lipitor -) 10 mg PO HS [facility] Last Admin: 12/03/19 21:56 Dose: 10 mg Documented by: Clotrimazole (Lotrisone Cream (Small Tube)) 1 applic TP BID [facility] Last Admin: 12/04/19 09:33 Dose: Not Given Documented by: Docusate Sodium (Colace -) 100 mg PO DAILY [facility] Last Admin: 12/04/19 09:32 Dose: Not Given Documented by: Emollient Ointment (Aquaphor -) 1 applic TP BID [facility] Last Admin: 12/04/19 09:32 Dose: Not Given Documented by: Enoxaparin Sodium (Lovenox -) 70 mg SQ BID [facility] Last Admin: 12/03/19 09:03 Dose: 70 mg Documented by: Gabapentin (Neurontin -) 100 mg PO TID [facility] Last Admin: 12/04/19 05:40 Dose: 100 mg Documented by: Vancomycin HCl (Vancomycin (Pre-Docked)) 1,000 mg in 250 mls @ 166.667 mls/hr IVPB DAILY@1300 [facility]; Protocol Last Admin: 12/03/19 15:21 Dose: 166.667 mls/hr Documented by: Ampicillin Sodium/Sulbactam (Sodium 3 gm/ Sodium Chloride) 100 mls @ 200 mls/hr IVPB Q6H-IV [facility] Last Admin: 12/04/19 08:06 Dose: Not Given Documented by: Lactobacillus Acidophilus (Bacid -) 1 tab PO DAILY [facility] Last Admin: 12/04/19 09:32 Dose: Not Given Documented by: Melatonin (Melatonin) 3 mg PO HS PRN PRN Reason: INSOMNIA Last Admin: 12/03/19 23:17 Dose: 3 mg Documented by: Ondansetron HCl (Zofran Injection) 4 mg IVPUSH Q6H PRN PRN Reason: NAUSEA Last Admin: 12/02/19 10:44 Dose: 4 mg Documented by: - Objective Vital Signs: Vital Signs Temperature 98.3 F 12/04/19 06:00 Pulse Rate 85 12/04/19 06:00 Respiratory Rate 20 12/04/19 07:20 Blood Pressure 134/69 12/04/19 06:00 O2 Sat by Pulse Oximetry (%) 96 12/04/19 07:20 Constitutional: Yes: Well Nourished, No Distress, Calm Cardiovascular: Yes: Regular Rate and Rhythm Respiratory: Yes: Regular, CTA Bilaterally Gastrointestinal: Yes: Normal Bowel Sounds, Soft Genitourinary: Yes: WNL Musculoskeletal: Yes: Muscle Weakness Extremities: Yes: WNL Edema: No Peripheral Pulses WNL: Yes Neurological: Yes: Alert, Oriented Psychiatric: Yes: Alert, Oriented Labs: CBC, BMP 12/04/19 07:10 12/04/19 07:10 INR, PTT INR 0.97 (0.83-1.09) 12/04/19 07:10 Problem List - Problems (1) Right foot drop Assessment/Plan: -Kerlix over the foot for pt to be able to flex and extend her foot 10 x Q1H -Nursing staff educated to stimulate the ankle by flexing and extending it during their visits in patients room. -Offload B/L heels w/rolled towels under ankles to minimize risk of heel ulcer formation. Problems reviewed: Yes Code(s): M21.371 - FOOT DROP, RIGHT FOOT (2) Surgical wound infection Assessment/Plan: -Last cultures + MRSA -ID consult appreciated -IV Rocephin -Wound vac-to facilitate granulation tissue, changed by plastic surgery -Skin flap with plastic surgery on 12/06/19 Problems reviewed: Yes Code(s): T81.49XA - INFECTION FOLLOWING A PROCEDURE, OTHER SURGICAL SITE, INIT (3) S/P total knee replacement Assessment/Plan: -Seen by orthopedic surgery -Right knee immobilizer -Pain management with tylenol 1g Q6H PRN -NO ROM Right knee (due to patellar ligament rupture). -Increased Neurontin to 300 mg po tid -Vac changes +/- bedside debridements q48-72 hours by plastics team only. -DVT ppx Problems reviewed: Yes Code(s): Z96.659 - PRESENCE OF UNSPECIFIED ARTIFICIAL KNEE JOINT Qualifiers: (4) History of DVT (deep vein thrombosis) Assessment/Plan: -In right popliteal and posterior tibial vein -Eliquis Problems reviewed: Yes Code(s): Z86.718 - PERSONAL HISTORY OF OTHER VENOUS THROMBOSIS AND EMBOLISM (5) Suprapubic discomfort Assessment/Plan: -UA reviewed -UC-+ VRE -Unasyn Problems reviewed: Yes Code(s): R10.2 - PELVIC AND PERINEAL PAIN (6) VRE (vancomycin resistant enterococcus) culture positive Assessment/Plan: -Unasyn -ID consult appreciated Problems reviewed: Yes Code(s): Z22.39 - CARRIER OF OTHER SPECIFIED BACTERIAL DISEASES Assessment/Plan See problem list
--- NOTE | 2019-12-04 11:26 | OP ---
Operative Note - Note: Operative Date: 12/04/19 Pre-Operative Diagnosis: Right knee wound dehiscence and patellar ligament rupture Operation: 1. Removal of hardware (poly liner, bushings, screws, washers). 2. I&D right knee. 3. Revision placement of hardware Findings: No gross signs of infection Wound and hardware clean Implants: [place] RHK poly, axle, bushings Post-Operative Diagnosis: Same as Pre-op Surgeon: Fitz Pardo Clerk Secretary: Barron Pardo Anesthesiologist/PLASTERER FOREMAN: Maribell Cardenas MD Anesthesia: General Specimens Removed: 3 x culture sticks & 1 x tissue specimen: bacteriology (aerobic, anaerobic), AFB, Fungal Estimated Blood Loss (mls): 150 Operative Report Dictated: Yes
[2019-12-04] MEDS: VANCOMYCIN 1 GRAM (PRE-DOCKED) 1,000 MG/250 ML BAG IVPB SCH ×2 (12:30→16:25)
[2019-12-04] MEDS ORDERED: MINERAL OIL 25 ML OIL ONE (12:39)
--- NOTE | 2019-12-04 12:39 | PN ---
Progress Note, Physician History of Present Illness: stable no new issues going for surgery - Current Medication List Current Medications: Active Medications Acetaminophen (Tylenol -) 1,000 mg PO Q6H PRN PRN Reason: PAIN Last Admin: 12/03/19 23:16 Dose: 1,000 mg Documented by: Albuterol Sulfate (Ventolin Hfa Inhaler -) 2 puff IH Q4H PRN PRN Reason: SHORT OF BREATH/WHEEZING Amino Acids (Prosource No Carb Liquid Pkt) 30 ml PO BID@0800,1730 [facility] Last Admin: 12/04/19 07:24 Dose: Not Given Documented by: Apixaban (Eliquis -) 5 mg PO BID [facility] Last Admin: 11/28/19 21:19 Dose: 5 mg Documented by: Atorvastatin Calcium (Lipitor -) 10 mg PO HS [facility] Last Admin: 12/03/19 21:56 Dose: 10 mg Documented by: Clotrimazole (Lotrisone Cream (Small Tube)) 1 applic TP BID [facility] Last Admin: 12/04/19 09:33 Dose: Not Given Documented by: Docusate Sodium (Colace -) 100 mg PO DAILY [facility] Last Admin: 12/04/19 09:32 Dose: Not Given Documented by: Emollient Ointment (Aquaphor -) 1 applic TP BID [facility] Last Admin: 12/04/19 09:32 Dose: Not Given Documented by: Enoxaparin Sodium (Lovenox -) 70 mg SQ BID [facility] Last Admin: 12/03/19 09:03 Dose: 70 mg Documented by: Gabapentin (Neurontin -) 100 mg PO TID [facility] Last Admin: 12/04/19 05:40 Dose: 100 mg Documented by: Vancomycin HCl (Vancomycin (Pre-Docked)) 1,000 mg in 250 mls @ 166.667 mls/hr IVPB DAILY@1300 [facility]; Protocol Last Admin: 12/04/19 12:30 Dose: Not Given Documented by: Ampicillin Sodium/Sulbactam (Sodium 3 gm/ Sodium Chloride) 100 mls @ 200 mls/hr IVPB Q6H-IV [facility] Last Admin: 12/04/19 08:06 Dose: Not Given Documented by: Lactobacillus Acidophilus (Bacid -) 1 tab PO DAILY [facility] Last Admin: 12/04/19 09:32 Dose: Not Given Documented by: Melatonin (Melatonin) 3 mg PO HS PRN PRN Reason: INSOMNIA Last Admin: 12/03/19 23:17 Dose: 3 mg Documented by: Ondansetron HCl (Zofran Injection) 4 mg IVPUSH Q6H PRN PRN Reason: NAUSEA Last Admin: 12/02/19 10:44 Dose: 4 mg Documented by: - Objective Vital Signs: Vital Signs Temperature 98.3 F 12/04/19 06:00 Pulse Rate 85 12/04/19 06:00 Respiratory Rate 12/04/19 07:20 Blood Pressure 134/69 12/04/19 06:00 O2 Sat by Pulse Oximetry (%) 96 12/04/19 07:20 Constitutional: Yes: No Distress, Calm Cardiovascular: Yes: S1, S2 Respiratory: Yes: Regular, CTA Bilaterally Gastrointestinal: Yes: Normal Bowel Sounds, Soft Musculoskeletal: Yes: WNL Extremities: Yes: Other Wound/Incision: Yes: Dressing Dry and Intact Psychiatric: Yes: Alert, Oriented Labs: CBC, BMP 12/04/19 07:10 12/04/19 07:10 INR, PTT INR 0.97 (0.83-1.09) 12/04/19 07:10 Assessment/Plan Problem List - Problems (1) History of DVT (deep vein thrombosis) Code(s): Z86.718 - PERSONAL HISTORY OF OTHER VENOUS THROMBOSIS AND EMBOLISM (2) Right foot drop Code(s): M21.371 - FOOT DROP, RIGHT FOOT (3) Surgical wound infection Code(s): T81.49XA - INFECTION FOLLOWING A PROCEDURE, OTHER SURGICAL SITE, INIT (4) S/P total knee replacement Code(s): Z96.659 - PRESENCE OF UNSPECIFIED ARTIFICIAL KNEE JOINT Qualifiers: (5) COVID-19 Code(s): U07.1 - COVID POSITIVE (6) Hypertension Code(s): I10 - ESSENTIAL (PRIMARY) HYPERTENSION (7) Inability to ambulate due to knee Code(s): R26.2 - DIFFICULTY IN WALKING, NOT ELSEWHERE CLASSIFIED (8) [place]-prosthetic fracture around prosthetic knee Code(s): M97.8XXA - PERIPROSTH FRACTURE AROUND OTHER INTERNAL PROSTH JOINT, INIT; Z96.659 - PRESENCE OF UNSPECIFIED ARTIFICIAL KNEE JOINT (9) COPD (chronic obstructive pulmonary disease) Code(s): J44.9 - CHRONIC OBSTRUCTIVE PULMONARY DISEASE, UNSPECIFIED (10) History of revision of total knee arthroplasty Code(s): Z96.659 - PRESENCE OF UNSPECIFIED ARTIFICIAL KNEE JOINT Assessment/Plan 79 y.o. female with PMH of HTN, COPD, Rt pop DVT, COVID, s/p revision of RT TKR and debridements with tibial wound/hardware exposure and possible patellar rupture readmitted for further management Rt tibial wound infection s/p debridement +MRSA /wound vac Rt TKR s/p revisions Possible Rt patellar rupture continue abx cx reports noted will await fopr post op cx then will decide further mgmt
[2019-12-04] MEDS ORDERED: BACITRACIN 15 GM TUBE TOPICAL OINTMENT TP ONE (13:00)
[2019-12-04] MEDS ORDERED: BACITRACIN 15 GM TUBE TOPICAL OINTMENT ONE (13:08)
[2019-12-04] MEDS ORDERED: ONDANSETRON 4 MG/2 ML VIAL ONE (13:43)
[2019-12-04] MEDS ORDERED: DEXAMETHASONE SOD PHOSPHATE 4 MG/1 ML VIAL ONE (13:43)
[2019-12-04] MEDS ORDERED: DEXAMETHASONE SOD PHOSPHATE 4 MG/1 ML VIAL IVPUSH ONE ×2 (13:45→13:51)
[2019-12-04] MEDS ORDERED: ONDANSETRON 4 MG/2 ML VIAL IVPUSH ONE (13:50)
[2019-12-04] MEDS ORDERED: ONDANSETRON 4 MG/2 ML VIAL IVPUSH PRN ×3 (13:50→14:17)
[2019-12-04] MEDS ORDERED: MIDAZOLAM HCL 2 MG/2 ML SINGLE DOSE VIAL IVPUSH ONE (14:00)
[2019-12-04] MEDS: LACTATED RINGERS SOLUTION 1,000 ML IV SCH ×2 (14:00→17:32)
[2019-12-04] MEDS ORDERED: LACTATED RINGERS SOLUTION 1,000 ML IV SCH (14:00)
--- NOTE | 2019-12-04 14:15 | OP ---
Operative Note - Note: Operative Date: 12/04/19 Pre-Operative Diagnosis: Right knee wound dehiscence, exposure of hardware Operation: Right gastrocnemius muscle flap, stsg Findings: as dictated Post-Operative Diagnosis: Same as Pre-op Surgeon: Vanessa Craft Trash Collector: Manjula Peguero Anesthesiologist/ANODE REBUILDER: Maribell Cardenas MD Anesthesia: General Estimated Blood Loss (mls): 100 (ml) Drains, Volume Out (mls): 500 (ml clear urine) Blood Volume Replaced (mls): 1 (unit pRBCs) Fluid Volume Replaced (mls): 1,800 (ml LR) Operative Report Dictated: Yes
[2019-12-04] MEDS ORDERED: ALBUTEROL SO4 HFA INHALER IH PRN (14:17)
--- NOTE | 2019-12-04 14:19 | PN ---
Progress Note (short form) - Note Progress Note: Pt s/p combined orthopedic/plastic surgery case (Removal of hardware (poly liner, bushings, screws, washers). I&D right knee. Revision placement of hardware; Right gastrocnemius muscle flap, stsg for Right knee wound dehiscence, patellar ligament rupture, exposure of hardware) Pt received 1 unit pRBCs intraop for blood loss/hypotension (no pressors needed) CBC/chem/mag ordered for PACU Has ALMAZ in place, please monitor and record the output Pt to remain with dressing in place (Do not remove it under any circumstances, will be changed by Dr Craft on Tuesday), keep Faraz brace in place, locked in extension at all times PT ordered for tomorrow, can be weight bearing as tolerated in [place] brace locked in extension Hold off on AC for now (will likely resume within 48 hours depending on output of ALMAZ drain and H/H) Pain control Neurovascular checks q4 hours Monitor h/h and transfuse as needed Continue abx per ID F/U OR cultures
[2019-12-04] MEDS ORDERED: PT OWN MED DRAWER 7, Y5N ONE ×3 (14:46→20:59)
[2019-12-04] MEDS ORDERED: AMPICILLIN NA/SULBACTAM NA 3 GM VIAL IVPB ONE (15:35)
[2019-12-04] MEDS ORDERED: VANCOMYCIN 1 GM in D5W (PRE-DOCKED) 1,000 MG/250 ML IVPB ONE (15:50)
[2019-12-04] MEDS ORDERED: POLYETHYLENE GLYCOL 3350 119 GM BTL PO PRN (16:07)
[2019-12-04 16:10] LABS: HEMATOCRIT 39.5 % (32.4-45.2); MCH 31.7 pg (25.7-33.7); MCHC 32.8 g/dl (32.0-36.0); MEAN CELL VOLUME 96.6 fl (80-96); MEAN PLT VOLUME 7.2 fl (7.5-11.1); PLATELET COUNT 467 K/MM3 (134-434); RBC 4.09 M/mm3 (3.60-5.2); RDW 15.1 % (11.6-15.6); WHITE BLOOD COUNT 21.8 K/mm3 (4.0-10.0)
[2019-12-04] MEDS ORDERED: METOPROLOL TARTRATE 5 MG/5 ML VIAL IVPUSH ONE ×2 (16:15→16:52)
[2019-12-04] MEDS ORDERED: METOPROLOL TARTRATE 5 MG/5 ML VIAL ONE (16:27)
[2019-12-04 16:48] LABS: BILIRUBIN,TOTAL 0.6 mg/dL (0.2-1); BLOOD UREA NITROGEN 16.5 mg/dL (7-18); CALCIUM 9.5 mg/dL (8.5-10.1); CREATININE 0.5 mg/dL (0.55-1.3); MAGNESIUM 1.8 mg/dL (1.8-2.4); POTASSIUM 4.5 mmol/L (3.5-5.1); TOT PROT 5.1 g/dl (6.4-8.2)
[2019-12-04] MEDS ORDERED: MORPHINE SULFATE 2 MG/ML VIAL IVPUSH PRN (16:49)
[2019-12-04] MEDS: oxyCODONE HCL 5 MG TABLET PO PRN (18:47)
[2019-12-04] MEDS: ATORVASTATIN CA 10 MG TABLET (FP) PO SCH (21:04)
[2019-12-04] MEDS: SENNOSIDES 8.6MG TABLET (FP) PO SCH (21:07)
[2019-12-05] MEDS ORDERED: PT OWN MED DRAWER 7, Y5N ONE ×6 (02:22→22:28)
[2019-12-05] MEDS: AMPICILLIN NA/SULBACTAM NA 3 GM in SODIUM CHLORIDE 100 ML IVPB SCH ×6 (02:23→23:10)
[2019-12-05] MEDS: oxyCODONE HCL 5 MG TABLET PO PRN ×3 (03:33→22:13)
[2019-12-05] MEDS: GABAPENTIN 100 MG CAPSULE PO SCH ×3 (05:16→21:17)
[2019-12-05 07:41] LABS: BASO % 0.6 % (0-2.0); HEMATOCRIT 27.8 % (32.4-45.2); HEMOGLOBIN 9.4 GM/dL (10.7-15.3); LYMPH % 8.3 % (8-40); MCH 32.2 pg (25.7-33.7); MCHC 33.9 g/dl (32.0-36.0); MEAN CELL VOLUME 94.9 fl (80-96); MEAN PLT VOLUME 7.2 fl (7.5-11.1); MONO % 5.9 % (3.8-10.2); NEUT % 85.2 % (42.8-82.8); PLATELET COUNT 357 K/MM3 (134-434); RBC 2.93 M/mm3 (3.60-5.2); RDW 15.1 % (11.6-15.6); WHITE BLOOD COUNT 9.2 K/mm3 (4.0-10.0)
[2019-12-05 08:01] LABS: BLOOD UREA NITROGEN 14.7 mg/dL (7-18); CALCIUM 8.7 mg/dL (8.5-10.1); CREATININE 0.5 mg/dL (0.55-1.3); POTASSIUM 4.6 mmol/L (3.5-5.1)
--- NOTE | 2019-12-05 08:42 | PN ---
Progress Note, Physician Chief Complaint: s/p i&d right knee, hardware exchange, with flap under general anesthesia History of Present Illness: Post op day one - Current Medication List Current Medications: Active Medications Acetaminophen (Tylenol -) 1,000 mg PO Q6H PRN PRN Reason: PAIN 1-3 Albuterol Sulfate (Ventolin Hfa Inhaler -) 2 puff IH Q4H PRN PRN Reason: SHORT OF BREATH/WHEEZING Amino Acids (Prosource No Carb Liquid Pkt) 30 ml PO BID@0800,1730 [facility] Last Admin: 12/04/19 17:36 Dose: Not Given Documented by: Atorvastatin Calcium (Lipitor -) 10 mg PO HS [facility] Last Admin: 12/04/19 21:04 Dose: 10 mg Documented by: Clotrimazole (Lotrisone Cream (Small Tube)) 1 applic TP BID [facility] Last Admin: 12/04/19 21:04 Dose: 1 applic Documented by: Docusate Sodium (Colace -) 100 mg PO DAILY [facility] Emollient Ointment (Aquaphor -) 1 applic TP BID [facility] Last Admin: 12/04/19 21:05 Dose: 1 applic Documented by: Gabapentin (Neurontin -) 100 mg PO TID [facility] Last Admin: 12/05/19 05:16 Dose: 100 mg Documented by: Ampicillin Sodium/Sulbactam (Sodium 3 gm/ Sodium Chloride) 100 mls @ 200 mls/hr IVPB Q6H-IV [facility] Last Admin: 12/05/19 02:23 Dose: 200 mls/hr Documented by: Lactated Ringer's (Lactated Ringers Solution) 1,000 mls @ 75 mls/hr IV ASDIR [facility] Last Admin: 12/04/19 17:32 Dose: 75 mls/hr Documented by: Vancomycin HCl (Vancomycin (Pre-Docked)) 1,000 mg in 250 mls @ 166.667 mls/hr IVPB DAILY@1300 [facility]; Protocol Last Admin: 12/04/19 16:25 Dose: Not Given Documented by: Lactobacillus Acidophilus (Bacid -) 1 tab PO DAILY [facility] Melatonin (Melatonin) 3 mg PO HS PRN PRN Reason: INSOMNIA Morphine Sulfate (Morphine Sulfate) 1 mg IVPUSH Q4H PRN PRN Reason: PAIN LEVEL 7 - 10 Last Admin: 12/04/19 17:30 Dose: 1 mg Documented by: Ondansetron HCl (Zofran Injection) 4 mg IVPUSH Q6H PRN PRN Reason: NAUSEA Oxycodone HCl (Roxicodone -) 5 mg PO Q4H PRN PRN Reason: PAIN LEVEL 1-5 Last Admin: 12/05/19 03:33 Dose: 5 mg Documented by: Oxycodone HCl (Roxicodone -) 10 mg PO Q4H PRN PRN Reason: PAIN LEVEL 6-10 Last Admin: 12/04/19 18:47 Dose: 10 mg Documented by: Polyethylene Glycol (Miralax (For Daily Use) -) 17 gm PO DAILY PRN PRN Reason: CONSTIPATION Senna (Senna -) 1 tab PO HS [facility] Last Admin: 12/04/19 21:07 Dose: 1 tab Documented by: - Objective Vital Signs: Vital Signs Temperature 98.3 F 12/05/19 01:00 Pulse Rate 100 H 12/05/19 01:00 Respiratory Rate 20 12/05/19 01:00 Blood Pressure 133/69 12/05/19 01:00 O2 Sat by Pulse Oximetry (%) 97 12/04/19 21:00 Constitutional: Yes: Well Nourished Cardiovascular: Yes: WNL Respiratory: Yes: WNL Gastrointestinal: Yes: WNL Neurological: Yes: WNL (complaining of forgetfulness this morning and hallucinations overnight.), Alert, Oriented Labs: CBC, BMP 12/05/19 06:30 12/05/19 06:30 INR, PTT INR 0.97 (0.83-1.09) 12/04/19 07:10 Assessment/Plan Doing well this AM, pain controlled, complaining of post anesthesia delirium, better this morning, advised to alert nursing team if cognitive effects continue today. otherwise, dept of anesthesiology will sign off care at this time
[2019-12-05] MEDS: AMINO ACIDS/PROTEIN HYDROLYS 30 ML LIQUID.PKT PO SCH ×2 (08:54→17:17)
[2019-12-05] MEDS: ACETAMINOPHEN 500 MG TABLET (FP) PO PRN ×2 (08:56→21:16)
[2019-12-05] MEDS: LACTOBACILLUS ACIDOPHILUS 1 TABLET PO SCH (09:01)
[2019-12-05] MEDS: DOCUSATE SODIUM 100 MG CAPSULE (FP) PO SCH (09:01)
[2019-12-05] MEDS: MINERAL OIL/PET HY-PHL TOPICAL OINTMENT 454 GM JAR TP SCH ×3 (09:02→21:17)
--- NOTE | 2019-12-05 09:06 | PN ---
Progress Note, Physician - Current Medication List Current Medications: Active Medications Acetaminophen (Tylenol -) 1,000 mg PO Q6H PRN PRN Reason: PAIN 1-3 Last Admin: 12/05/19 08:56 Dose: 1,000 mg Documented by: Albuterol Sulfate (Ventolin Hfa Inhaler -) 2 puff IH Q4H PRN PRN Reason: SHORT OF BREATH/WHEEZING Amino Acids (Prosource No Carb Liquid Pkt) 30 ml PO BID@0800,1730 [facility] Last Admin: 12/05/19 08:54 Dose: 30 ml Documented by: Atorvastatin Calcium (Lipitor -) 10 mg PO HS [facility] Last Admin: 12/04/19 21:04 Dose: 10 mg Documented by: Clotrimazole (Lotrisone Cream (Small Tube)) 1 applic TP BID [facility] Last Admin: 12/04/19 21:04 Dose: 1 applic Documented by: Docusate Sodium (Colace -) 100 mg PO DAILY [facility] Last Admin: 12/05/19 09:01 Dose: 100 mg Documented by: Emollient Ointment (Aquaphor -) 1 applic TP BID [facility] Last Admin: 12/05/19 09:03 Dose: 1 applic Documented by: Gabapentin (Neurontin -) 100 mg PO TID [facility] Last Admin: 12/05/19 05:16 Dose: 100 mg Documented by: Ampicillin Sodium/Sulbactam (Sodium 3 gm/ Sodium Chloride) 100 mls @ 200 mls/hr IVPB Q6H-IV [facility] Last Admin: 12/05/19 08:56 Dose: 200 mls/hr Documented by: Lactated Ringer's (Lactated Ringers Solution) 1,000 mls @ 75 mls/hr IV ASDIR [facility] Last Admin: 12/04/19 17:32 Dose: 75 mls/hr Documented by: Vancomycin HCl (Vancomycin (Pre-Docked)) 1,000 mg in 250 mls @ 166.667 mls/hr IVPB DAILY@1300 [facility]; Protocol Last Admin: 12/04/19 16:25 Dose: Not Given Documented by: Lactobacillus Acidophilus (Bacid -) 1 tab PO DAILY [facility] Last Admin: 12/05/19 09:01 Dose: 1 tab Documented by: Melatonin (Melatonin) 3 mg PO HS PRN PRN Reason: INSOMNIA Morphine Sulfate (Morphine Sulfate) 1 mg IVPUSH Q4H PRN PRN Reason: PAIN LEVEL 7 - 10 Last Admin: 12/04/19 17:30 Dose: 1 mg Documented by: Ondansetron HCl (Zofran Injection) 4 mg IVPUSH Q6H PRN PRN Reason: NAUSEA Oxycodone HCl (Roxicodone -) 5 mg PO Q4H PRN PRN Reason: PAIN LEVEL 1-5 Last Admin: 12/05/19 03:33 Dose: 5 mg Documented by: Oxycodone HCl (Roxicodone -) 10 mg PO Q4H PRN PRN Reason: PAIN LEVEL 6-10 Last Admin: 12/04/19 18:47 Dose: 10 mg Documented by: Polyethylene Glycol (Miralax (For Daily Use) -) 17 gm PO DAILY PRN PRN Reason: CONSTIPATION Senna (Senna -) 1 tab PO HS [facility] Last Admin: 12/04/19 21:07 Dose: 1 tab Documented by: - Objective Vital Signs: Vital Signs Temperature 98.3 F 12/05/19 01:00 Pulse Rate 100 H 12/05/19 01:00 Respiratory Rate 20 12/05/19 01:00 Blood Pressure 133/69 12/05/19 01:00 O2 Sat by Pulse Oximetry (%) 97 12/04/19 21:00 Labs: CBC, BMP 12/05/19 06:30 12/05/19 06:30 INR, PTT INR 0.97 (0.83-1.09) 12/04/19 07:10 Assessment/Plan - Problems (1) Right foot drop Assessment/Plan: -Kerlix over the foot for pt to be able to flex and extend her foot 10 x Q1H -Nursing staff educated to stimulate the ankle by flexing and extending it during their visits in patients room. -OOBTC daily with knee immobilizer -PT/OT/Rehab per ortho Problems reviewed: Yes Code(s): M21.371 - FOOT DROP, RIGHT FOOT (2) Surgical wound infection Assessment/Plan: -Last cultures + MRSA -ID consult -IV Vanco -Skin flap with plastic surgery done on 12/04/19 Problems reviewed: Yes Code(s): T81.49XA - INFECTION FOLLOWING A PROCEDURE, OTHER SURGICAL SITE, INIT (3) S/P total knee replacement Assessment/Plan: -Seen by orthopedic surgery -WBAT per surgery -Pain management with tylenol 1g Q6H PRN -NO ROM Right knee (due to patellar ligament rupture). -Neurontin 100mg PO BID, increase it to TID- tolerating well -Vac changes +/- bedside debridements q48-72 hours by surgical team only. -DVT ppx -s/p skin flap on 12/04/19 in OR with orthopedic and plastic surgery -Ewsume Lovenox 70 mg BID once cleared by surgery Problems reviewed: Yes Code(s): Z96.659 - PRESENCE OF UNSPECIFIED ARTIFICIAL KNEE JOINT Qualifiers: (4) Hypertension Assessment/Plan: -Low sodium diet Problems reviewed: Yes Code(s): I10 - ESSENTIAL (PRIMARY) HYPERTENSION (5) History of DVT (deep vein thrombosis) Assessment/Plan: -In right popliteal and posterior tibial vein -Hold eliquis until after surgery -Lovenox BID once cleared Problems reviewed: Yes Code(s): Z86.718 - PERSONAL HISTORY OF OTHER VENOUS THROMBOSIS AND EMBOLISM (6) Constipation Assessment/Plan: -resolved -Colace 100 mg po daily Problems reviewed: Yes Code(s): K59.00 - CONSTIPATION, UNSPECIFIED (7) Hemorrhoids Assessment/Plan: -Resolved -d/c Anusol supp BID Problems reviewed: Yes Code(s): K64.9 - UNSPECIFIED HEMORRHOIDS (8) Nausea & vomiting Assessment/Plan: -Resolved -AXR F&U-unremarkable -Likely zinc causing GI symptoms Problems reviewed: Yes Code(s): R11.2 - NAUSEA WITH VOMITING, UNSPECIFIED (9) Suprapubic discomfort Assessment/Plan: -UA reviewed -UC-+ VRE -Bladder scan- no retention Problems reviewed: Yes Code(s): R10.2 - PELVIC AND PERINEAL PAIN (10) VRE (vancomycin resistant enterococcus) culture positive Assessment/Plan: -Change augmentin to Unasyn Problems reviewed: Yes Code(s): Z22.39 - CARRIER OF OTHER SPECIFIED BACTERIAL DISEASES
--- NOTE | 2019-12-05 09:14 | PN ---
Progress Note (short form) - Note Progress Note: POD 1, s/p combined orthopedic/plastic surgery case :Removal of hardware (poly liner, bushings, screws, washers). I&D right knee. Revision placement of hardware; Right gastrocnemius muscle flap, stsg for Right knee wound dehiscence, patellar ligament rupture, exposure of hardware (received 1 unit prbcs intraop) Pt seen and examined. States she feels confused this AM, believes it is due to the anesthesia she received yesteday. Tolerating PO. Has not been oob yet. Has pain, controlled with pain meds. Denies cp/sob, n/v/d. Vital Signs Temp 98.3 F 12/05/19 01:00 Pulse 100 H 12/05/19 01:00 Resp 20 12/05/19 01:00 BP 133/69 12/05/19 01:00 Pulse Ox 97 12/04/19 21:00 Intake & Output 12/04/19 12/04/19 12/05/19 11:59 23:59 11:59 Intake Total 600 3480 830 Output Total 1550 200 Balance 600 1930 630 Intake: IV 250 2900 550 Lactated Ringers Solution 300 550 1,000 ml @ 75 mls/hr IV ASDIR [facility]ARA Rx#:[id number] IVPB 100 200 Oral 480 80 Blood Product 350 Output: Drainage 80 Right Medial Knee 10 Urine 1120 200 Void 220 200 Estimated Blood Loss 350 Other: Voiding Method Diaper Indwelling Catheter # Unmeasured Voids Void 3 Bowel Movement No No CBC, BMP 12/05/19 06:30 12/05/19 06:30 Gen: awake, alert, nad Resp: unlabored on ra Ext: RLE with dressing c/d/i, no bleeding noted. ALMAZ in place with serosanguinous drainage in reservoir (approx 5ml) tubing stripped, foot warm, edematous, wiggles toes, foot drop stable. Palpable dp pulse A/P: 79 yo f w/ PMH HTN, COPD (no on home ) recent DVT (on eliquis), s/p R TKA in the beginning of august, c/b hematoma and concern for septic joint, s/p wash out with discovery of periprosthetic fracture, s/p Right distal femoral resection, Right distal femoral reconstruction, Revision right total knee replacement, c/b nonhealing wound and exposure of hardware now s/p combined orthopedic/plastic surgery case for Removal of hardware (poly liner, bushings, screws, washers). I&D right knee. Revision placement of hardware; Right gastrocnemius muscle flap, stsg for Right knee wound dehiscence, patellar ligament rupture, exposure of hardware (received 1 unit prbcs intraop). Confused this morning likely secondary to postoperative delirium. H/H noted, significant drop, monitor closely and transfuse as needed Dressing intact, Almaz with serosanguinous drainage 50ml overnight -1 unit prbcs order, post transfusion h/h ordered -Keep ALMAZ in place, please monitor and record the output -Pt to remain with dressing in place (Do not remove it under any circumstances, will be changed by Dr Craft on Tuesday) -Keep [place] brace in place, locked in extension at all times -PT ordered, can be weight bearing as tolerated in [place] brace locked in extension -Resume AC tonight-eliquis 5 mg ordered -Pain control -Neurovascular checks q4 hours -Monitor h/h and transfuse as needed -Continue abx per ID -F/U OR cultures d/w attending Dr Craft
--- NOTE | 2019-12-05 10:15 | PN ---
Progress Note, Physician History of Present Illness: post op patient stable pain - Current Medication List Current Medications: Active Medications Acetaminophen (Tylenol -) 1,000 mg PO Q6H PRN PRN Reason: PAIN 1-3 Last Admin: 12/05/19 08:56 Dose: 1,000 mg Documented by: Albuterol Sulfate (Ventolin Hfa Inhaler -) 2 puff IH Q4H PRN PRN Reason: SHORT OF BREATH/WHEEZING Amino Acids (Prosource No Carb Liquid Pkt) 30 ml PO BID@0800,1730 [facility] Last Admin: 12/05/19 08:54 Dose: 30 ml Documented by: Atorvastatin Calcium (Lipitor -) 10 mg PO HS [facility] Last Admin: 12/04/19 21:04 Dose: 10 mg Documented by: Clotrimazole (Lotrisone Cream (Small Tube)) 1 applic TP BID [facility] Last Admin: 12/04/19 21:04 Dose: 1 applic Documented by: Docusate Sodium (Colace -) 100 mg PO DAILY [facility] Last Admin: 12/05/19 09:01 Dose: 100 mg Documented by: Emollient Ointment (Aquaphor -) 1 applic TP BID [facility] Last Admin: 12/05/19 09:03 Dose: 1 applic Documented by: Gabapentin (Neurontin -) 100 mg PO TID [facility] Last Admin: 12/05/19 05:16 Dose: 100 mg Documented by: Ampicillin Sodium/Sulbactam (Sodium 3 gm/ Sodium Chloride) 100 mls @ 200 mls/hr IVPB Q6H-IV [facility] Last Admin: 12/05/19 08:56 Dose: 200 mls/hr Documented by: Lactated Ringer's (Lactated Ringers Solution) 1,000 mls @ 75 mls/hr IV ASDIR [facility] Last Admin: 12/04/19 17:32 Dose: 75 mls/hr Documented by: Vancomycin HCl (Vancomycin (Pre-Docked)) 1,000 mg in 250 mls @ 166.667 mls/hr IVPB DAILY@1300 [facility]ARA; Protocol Last Admin: 12/04/19 16:25 Dose: Not Given Documented by: Lactobacillus Acidophilus (Bacid -) 1 tab PO DAILY [facility] Last Admin: 12/05/19 09:01 Dose: 1 tab Documented by: Melatonin (Melatonin) 3 mg PO HS PRN PRN Reason: INSOMNIA Morphine Sulfate (Morphine Sulfate) 1 mg IVPUSH Q4H PRN PRN Reason: PAIN LEVEL 7 - 10 Last Admin: 12/04/19 17:30 Dose: 1 mg Documented by: Ondansetron HCl (Zofran Injection) 4 mg IVPUSH Q6H PRN PRN Reason: NAUSEA Oxycodone HCl (Roxicodone -) 5 mg PO Q4H PRN PRN Reason: PAIN LEVEL 1-5 Last Admin: 12/05/19 03:33 Dose: 5 mg Documented by: Oxycodone HCl (Roxicodone -) 10 mg PO Q4H PRN PRN Reason: PAIN LEVEL 6-10 Last Admin: 12/04/19 18:47 Dose: 10 mg Documented by: Polyethylene Glycol (Miralax (For Daily Use) -) 17 gm PO DAILY PRN PRN Reason: CONSTIPATION Senna (Senna -) 1 tab PO HS [facility] Last Admin: 12/04/19 21:07 Dose: 1 tab Documented by: - Objective Vital Signs: Vital Signs Temperature 98.3 F 12/05/19 01:00 Pulse Rate 100 H 12/05/19 01:00 Respiratory Rate 20 12/05/19 01:00 Blood Pressure 133/69 12/05/19 01:00 O2 Sat by Pulse Oximetry (%) 97 12/04/19 21:00 Constitutional: Yes: Calm, Mild Distress Cardiovascular: Yes: S1, S2 Respiratory: Yes: Regular, CTA Bilaterally Gastrointestinal: Yes: Normal Bowel Sounds, Soft Genitourinary: Yes: Salomon Present Musculoskeletal: Yes: WNL Extremities: Yes: Other Wound/Incision: Yes: Dressing Dry and Intact, Other (dressing) Neurological: Yes: Alert, Oriented Psychiatric: Yes: Alert, Oriented Labs: CBC, BMP 12/05/19 06:30 12/05/19 06:30 INR, PTT INR 0.97 (0.83-1.09) 12/04/19 07:10 Assessment/Plan Problem List - Problems (1) History of DVT (deep vein thrombosis) Code(s): Z86.718 - PERSONAL HISTORY OF OTHER VENOUS THROMBOSIS AND EMBOLISM (2) Right foot drop Code(s): M21.371 - FOOT DROP, RIGHT FOOT (3) Surgical wound infection Code(s): T81.49XA - INFECTION FOLLOWING A PROCEDURE, OTHER SURGICAL SITE, INIT (4) S/P total knee replacement Code(s): Z96.659 - PRESENCE OF UNSPECIFIED ARTIFICIAL KNEE JOINT Qualifiers: (5) COVID-19 Code(s): U07.1 - COVID POSITIVE (6) Hypertension Code(s): I10 - ESSENTIAL (PRIMARY) HYPERTENSION (7) Inability to ambulate due to knee Code(s): R26.2 - DIFFICULTY IN WALKING, NOT ELSEWHERE CLASSIFIED (8) [place]-prosthetic fracture around prosthetic knee Code(s): M97.8XXA - PERIPROSTH FRACTURE AROUND OTHER INTERNAL PROSTH JOINT, INIT; Z96.659 - PRESENCE OF UNSPECIFIED ARTIFICIAL KNEE JOINT (9) COPD (chronic obstructive pulmonary disease) Code(s): J44.9 - CHRONIC OBSTRUCTIVE PULMONARY DISEASE, UNSPECIFIED (10) History of revision of total knee arthroplasty Code(s): Z96.659 - PRESENCE OF UNSPECIFIED ARTIFICIAL KNEE JOINT Assessment/Plan 79 y.o. female with PMH of HTN, COPD, Rt pop DVT, COVID, s/p revision of RT TKR and debridements with tibial wound/hardware exposure and possible patellar rupture readmitted for further management Rt tibial wound infection s/p debridement +MRSA /wound vac Rt TKR s/p revisions Possible Rt patellar rupture continue abx await for cx reports close watch
[2019-12-05] MEDS: CLOTRIMAZOLE/BETAMET DIPROP 15 GM TUBE TP SCH ×2 (12:09→21:17)
[2019-12-05] MEDS: VANCOMYCIN 1 GRAM (PRE-DOCKED) 1,000 MG/250 ML BAG IVPB SCH (12:10)
--- NOTE | 2019-12-05 16:01 | PN ---
Progress Note (short form) - Note Progress Note: The patient had a pain level of 6 after administration of oxycodone per pt. She was administered a breathing exercise with guided imagery of a park to calm her down. She reported that it helped and she indeed felt calmer. In addition, she was taught acupressure (hand reflexology) for pain relief as well. That approach was not helpful as she had difficulty understanding how to perform it. She also shared about a strange experience after surgery. The patient felt that she was being called up to "." She is not suicidal and very much wants to live. In any case, she finds the sessions helpful as she misses seeing her son and daughter. It was recommended that Val Nicholson RN and Rev. Pérez Ortiz also consult on her case for emotional and spiritual support. Problem List - Problems (1) Mild depression Code(s): F32.0 - MAJOR DEPRESSIVE DISORDER, SINGLE EPISODE, MILD (2) Anxiety about health Code(s): F41.8 - OTHER SPECIFIED ANXIETY DISORDERS
[2019-12-05] MEDS: LACTATED RINGERS SOLUTION 1,000 ML IV SCH ×2 (17:17→21:16)
[2019-12-05 20:56] LABS: BASO % 0.3 % (0-2.0); EOS % 0.2 % (0-4.5); HEMATOCRIT 32.8 % (32.4-45.2); HEMOGLOBIN 10.9 GM/dL (10.7-15.3); MCH 31.6 pg (25.7-33.7); MCHC 33.3 g/dl (32.0-36.0); MEAN CELL VOLUME 94.9 fl (80-96); MEAN PLT VOLUME 6.9 fl (7.5-11.1); NEUT % 77.5 % (42.8-82.8); PLATELET COUNT 342 K/MM3 (134-434); RBC 3.46 M/mm3 (3.60-5.2); RDW 15.9 % (11.6-15.6); WHITE BLOOD COUNT 9.5 K/mm3 (4.0-10.0)
[2019-12-05] MEDS: ATORVASTATIN CA 10 MG TABLET (FP) PO SCH (21:17)
[2019-12-05] MEDS: APIXABAN 5 MG TABLET PO SCH (21:17)
[2019-12-05] MEDS: SENNOSIDES 8.6MG TABLET (FP) PO SCH (21:18)
[2019-12-06] MEDS: ACETAMINOPHEN 500 MG TABLET (FP) PO PRN (04:27)
[2019-12-06] MEDS ORDERED: PT OWN MED DRAWER 7, Y5N ONE ×4 (05:03→20:55)
[2019-12-06] MEDS: AMPICILLIN NA/SULBACTAM NA 3 GM in SODIUM CHLORIDE 100 ML IVPB SCH ×4 (05:07→21:43)
[2019-12-06] MEDS: GABAPENTIN 100 MG CAPSULE PO SCH ×3 (05:08→21:43)
[2019-12-06] MEDS: AMINO ACIDS/PROTEIN HYDROLYS 30 ML LIQUID.PKT PO SCH ×2 (08:08→17:06)
--- NOTE | 2019-12-06 08:30 | PN ---
Progress Note, Physician - Current Medication List Current Medications: Active Medications Acetaminophen (Tylenol -) 1,000 mg PO Q6H PRN PRN Reason: PAIN 1-3 Last Admin: 12/06/19 04:27 Dose: 1,000 mg Documented by: Albuterol Sulfate (Ventolin Hfa Inhaler -) 2 puff IH Q4H PRN PRN Reason: SHORT OF BREATH/WHEEZING Amino Acids (Prosource No Carb Liquid Pkt) 30 ml PO BID@0800,1730 [facility] Last Admin: 12/06/19 08:08 Dose: 30 ml Documented by: Apixaban (Eliquis -) 5 mg PO BID [facility] Last Admin: 12/05/19 21:17 Dose: 5 mg Documented by: Atorvastatin Calcium (Lipitor -) 10 mg PO HS [facility] Last Admin: 12/05/19 21:17 Dose: 10 mg Documented by: Clotrimazole (Lotrisone Cream (Small Tube)) 1 applic TP BID [facility] Last Admin: 12/05/19 21:17 Dose: 1 applic Documented by: Docusate Sodium (Colace -) 100 mg PO DAILY [facility] Last Admin: 12/05/19 09:01 Dose: 100 mg Documented by: Emollient Ointment (Aquaphor -) 1 applic TP BID [facility] Last Admin: 12/05/19 21:17 Dose: 1 applic Documented by: Gabapentin (Neurontin -) 100 mg PO TID [facility] Last Admin: 12/06/19 05:08 Dose: 100 mg Documented by: Ampicillin Sodium/Sulbactam (Sodium 3 gm/ Sodium Chloride) 100 mls @ 200 mls/hr IVPB Q6H-IV [facility] Last Admin: 12/06/19 05:07 Dose: 200 mls/hr Documented by: Lactated Ringer's (Lactated Ringers Solution) 1,000 mls @ 75 mls/hr IV ASDIR [facility] Last Admin: 12/05/19 21:16 Dose: 75 mls/hr Documented by: Vancomycin HCl (Vancomycin (Pre-Docked)) 1,000 mg in 250 mls @ 166.667 mls/hr IVPB DAILY@1300 [facility]ARA; Protocol Last Admin: 12/05/19 12:10 Dose: 166.667 mls/hr Documented by: Lactobacillus Acidophilus (Bacid -) 1 tab PO DAILY [facility] Last Admin: 12/05/19 09:01 Dose: 1 tab Documented by: Melatonin (Melatonin) 3 mg PO HS PRN PRN Reason: INSOMNIA Morphine Sulfate (Morphine Sulfate) 1 mg IVPUSH Q4H PRN PRN Reason: PAIN LEVEL 7 - 10 Last Admin: 12/04/19 17:30 Dose: 1 mg Documented by: Ondansetron HCl (Zofran Injection) 4 mg IVPUSH Q6H PRN PRN Reason: NAUSEA Oxycodone HCl (Roxicodone -) 5 mg PO Q4H PRN PRN Reason: PAIN LEVEL 1-5 Last Admin: 12/05/19 03:33 Dose: 5 mg Documented by: Oxycodone HCl (Roxicodone -) 10 mg PO Q4H PRN PRN Reason: PAIN LEVEL 6-10 Last Admin: 12/05/19 22:13 Dose: 10 mg Documented by: Polyethylene Glycol (Miralax (For Daily Use) -) 17 gm PO DAILY PRN PRN Reason: CONSTIPATION Senna (Senna -) 1 tab PO HS [facility] Last Admin: 12/05/19 21:18 Dose: 1 tab Documented by: - Objective Vital Signs: Vital Signs Temperature 98.0 F 12/06/19 04:00 Pulse Rate 78 12/06/19 04:00 Respiratory Rate 20 12/06/19 04:00 Blood Pressure 109/60 12/06/19 04:00 O2 Sat by Pulse Oximetry (%) 96 12/05/19 20:18 Cardiovascular: Yes: Regular Rate and Rhythm Respiratory: Yes: Regular, CTA Bilaterally Gastrointestinal: Yes: Normal Bowel Sounds, Soft Labs: CBC, BMP 12/05/19 19:45 12/05/19 06:30 INR, PTT INR 0.97 (0.83-1.09) 12/04/19 07:10 Assessment/Plan - Problems (1) Right foot drop Assessment/Plan: -Kerlix over the foot for pt to be able to flex and extend her foot 10 x Q1H -Nursing staff educated to stimulate the ankle by flexing and extending it during their visits in patients room. -OOBTC daily with knee immobilizer -PT/OT/Rehab per ortho Problems reviewed: Yes Code(s): M21.371 - FOOT DROP, RIGHT FOOT (2) Surgical wound infection Assessment/Plan: -Last cultures + MRSA -ID consult -IV Vanco -Skin flap with plastic surgery done on 12/04/19 Problems reviewed: Yes Code(s): T81.49XA - INFECTION FOLLOWING A PROCEDURE, OTHER SURGICAL SITE, INIT (3) S/P total knee replacement Assessment/Plan: -Seen by orthopedic surgery -WBAT per surgery -Pain management with tylenol 1g Q6H PRN -NO ROM Right knee (due to patellar ligament rupture). -Neurontin 100mg PO BID, increase it to TID- tolerating well -Vac changes +/- bedside debridements q48-72 hours by surgical team only. -DVT ppx -s/p skin flap on 12/04/19 in OR with orthopedic and plastic surgery -Ewsume Lovenox 70 mg BID once cleared by surgery Problems reviewed: Yes Code(s): Z96.659 - PRESENCE OF UNSPECIFIED ARTIFICIAL KNEE JOINT Qualifiers: (4) Hypertension Assessment/Plan: -Low sodium diet Problems reviewed: Yes Code(s): I10 - ESSENTIAL (PRIMARY) HYPERTENSION (5) History of DVT (deep vein thrombosis) Assessment/Plan: -In right popliteal and posterior tibial vein -Hold eliquis until after surgery -Lovenox BID once cleared Problems reviewed: Yes Code(s): Z86.718 - PERSONAL HISTORY OF OTHER VENOUS THROMBOSIS AND EMBOLISM (6) Constipation Assessment/Plan: -resolved -Colace 100 mg po daily Problems reviewed: Yes Code(s): K59.00 - CONSTIPATION, UNSPECIFIED (7) Hemorrhoids Assessment/Plan: -Resolved -d/c Anusol supp BID Problems reviewed: Yes Code(s): K64.9 - UNSPECIFIED HEMORRHOIDS (8) Nausea & vomiting Assessment/Plan: -Resolved -AXR F&U-unremarkable -Likely zinc causing GI symptoms Problems reviewed: Yes Code(s): R11.2 - NAUSEA WITH VOMITING, UNSPECIFIED (9) Suprapubic discomfort Assessment/Plan: -UA reviewed -UC-+ VRE -Bladder scan- no retention Problems reviewed: Yes Code(s): R10.2 - PELVIC AND PERINEAL PAIN (10) VRE (vancomycin resistant enterococcus) culture positive Assessment/Plan: -Change augmentin to Unasyn Problems reviewed: Yes Code(s): Z22.39 - CARRIER OF OTHER SPECIFIED BACTERIAL DISEASES
--- NOTE | 2019-12-06 09:11 | OP ---
Operative Date: 12/04/19 Pre-Operative Diagnosis: Right knee wound dehiscence and patellar ligament rupture. Post-Operative Diagnosis: Right knee wound dehiscence and patellar ligament rupture. Operation: 1. Removal of hardware (polyethylene liner, bushings, screws, washers) with revision placement of hardware (polyethylene liner). (79251) 2. Incision and drainage, right knee. (35194) Findings: No gross signs of infection Soft tissues appear healthy Wound and hardware clean Implants: [place] [facility] polyethylene liner, axle, bushings Surgeon: Fitz Pardo Partner Management Consultant: Barron Pardo Anesthesiologist/[employer]AND PLANT ATTENDANT: Maribell Cardenas MD Anesthesia: General Specimens Removed: 3 x culture sticks & 1 x tissue specimen: bacteriology (aerobic, anaerobic), AFB, Fungal Estimated Blood Loss (mls): 150 Tourniquet: None. Operative Report Dictated: Yes INDICATIONS: The patient is an 79-year-old female who was indicated for incision, drainage, irrigation, and debridement with removal of hardware and revision of hardware of her dehisced right anterior knee would. The case was planned in conjunction with the plastic surgery service for planned right medial gastrocnemius flap reconstruction and complex wound closure. The patient was identified in the holding area by her arm band. A long discussion was held with the patient regarding the risks, benefits, and alternatives of the above-named procedure. Risks include but are not limited to: pain, bleeding, infection, damage to surrounding structures (including nerves, blood vessels, skin, ligaments, tendons and bone), wound complications, need for further surgery, blood clots, myocardial infarction, pulmonary embolism, cerebrovascular insult, anaesthesia complications, compartment syndrome, limb loss, limp, loss of function, and . Benefits as mentioned above. Alternatives include no surgery. All questions were answered. The patient understood and agreed to the procedure. Informed consent was obtained, witnessed and verified. The patients correct operative limb - that is the right lower extremity - was marked, and the patient was taken to the operating room after being seen by the plastic surgery service, anesthesia team, and nursing staff. Procedure: The patient was brought into the operating room and transferred to the OR table, and secured with a safety strap. All bony prominences were well padded. Consent and the operative site were again verified with the patient, the nursing team, the surgical team, and the anesthesiology team. Anesthesia was then administered without complication. A time out was done, led by me the attending surgeon. Pre-operative imaging was available for intra-operative evaluation. The wound vac dressing was removed from the right knee. The dehisced wound site and the entire operative limb were then prepped and draped in the standard sterile fashion using betadine scrub, wiped off with alcohol, and Duraprep applied. Time out was again done and the case began. The wound dimensions were measured as follows: Length: 4.5cm. Width: 3.5cm. Depth: 0.25cm. The patellar ligament appeared ruptured. The polyethylene liner was barely visible through the opening created by the ruptured patellar ligament. The original skin incision was incised and a standard medial parapatellar approach was utilized to access the knee joint. There was no sign of infection or purulence, and there was no malodor. The intra-articular tissues appeared normal and healthy. There was no synovitis. The hardware appeared clean, and intact. 3 Culture swab sticks were used to swab the wound (deep and superficial) and sent to the lab along with some fibrinous synovial slough for tissue analysis. The axle, bushings, and polyethylene liner of the prosthesis was removed. The wound was irrigated with normal saline solution. All soft tissues and hardware were and mechanically debrided using multiple sponges with betadine soap. The wound was then irrigated with 3L normal saline solution. The wound was filled with 50% normal saline and 50% betadine solution. The wound was soaked in dilution betadine solution for 3 minutes. The wound was then irrigated with another 3L normal saline solution. A new polyethylene liner, of same specifications as the one removed, was implanted along with new bushings and a new axle. The knee was taken through a full range of motion and alignment and stability in the coronal, sagittal, and rotation planes in full extension and at 90 degrees of flexion were satisfactory. Passive range of motion was demonstrated from 0 to 120 degrees of knee flexion. Next, the plastic surgery team performed a medial gastrocnemius flap closure of the wound with a complex wound closure of the limb. The flap covered the patellar ligament rupture. The plan to reconstruct the patellar ligament in the future versus treat the patient with a drop lock KAFO brace was discussed pre-operatively and will be discussed again post-operatively. MD ALEXANDER [id number] MTDD
[2019-12-06] MEDS: oxyCODONE HCL 5 MG TABLET PO PRN ×3 (09:21→20:26)
[2019-12-06] MEDS: DOCUSATE SODIUM 100 MG CAPSULE (FP) PO SCH (09:23)
[2019-12-06] MEDS: LACTOBACILLUS ACIDOPHILUS 1 TABLET PO SCH (09:23)
[2019-12-06] MEDS: APIXABAN 5 MG TABLET PO SCH ×2 (09:23→21:43)
[2019-12-06] MEDS: CLOTRIMAZOLE/BETAMET DIPROP 15 GM TUBE TP SCH ×2 (09:42→21:43)
[2019-12-06] MEDS: MINERAL OIL/PET HY-PHL TOPICAL OINTMENT 454 GM JAR TP SCH ×2 (09:43→21:43)
[2019-12-06 10:52] LABS: BASO % 0.6 % (0-2.0); EOS % 1.3 % (0-4.5); HEMOGLOBIN 11.8 GM/dL (10.7-15.3); LYMPH % 21.9 % (8-40); MCH 31.7 pg (25.7-33.7); MCHC 33.6 g/dl (32.0-36.0); MEAN CELL VOLUME 94.4 fl (80-96); MEAN PLT VOLUME 6.8 fl (7.5-11.1); MONO % 9.3 % (3.8-10.2); NEUT % 66.9 % (42.8-82.8); PLATELET COUNT 447 K/MM3 (134-434); RBC 3.71 M/mm3 (3.60-5.2); RDW 16.1 % (11.6-15.6); WHITE BLOOD COUNT 12.1 K/mm3 (4.0-10.0)
[2019-12-06 11:17] LABS: BILIRUBIN,TOTAL 0.5 mg/dL (0.2-1); BLOOD UREA NITROGEN 14.9 mg/dL (7-18); CALCIUM 9.8 mg/dL (8.5-10.1); TOT PROT 5.1 g/dl (6.4-8.2)
[2019-12-06 11:18] LABS: CREATININE 0.7 mg/dL (0.55-1.3)
--- NOTE | 2019-12-06 11:20 | OP ---
DATE OF OPERATION: 12/04/2019 DATE OF DICTATION: 12/04/2019 PREOPERATIVE DIAGNOSIS: Right knee exposed joint with exposed screws. Plan of reconstruction. PROCEDURE: Reconstruction with medial gastrocnemius head with skin grafting. INDICATIONS: An 79-year-old female seen on consultation on request from Dr. Barron Pardo regarding open wound on her right knee with exposed prosthesis ruptured tendon requiring muscle flap coverage. First part of the procedure was carried out by Dr. See. The second part of procedure involved will be dictated separately by Dr. Pardo. SURGEON: Miguel See MD MANAGER CODE: Manjula Peguero ANESTHESIOLOGIST/POOL PLAYER: Maribell Cardenas MD ANESTHESIA: General. DETAILS OF PROCEDURE: After the first part had been completed by Dr. Pardo, the drapes were removed. Skin was again prepped with Betadine. Incision after draping was carried along the radial border of tibia bone going from away from the tibial ridge extended down to the ankle. Skin and subcutaneous tissue were dissected down to the level of the medial gastrocnemius flap. It was noted that there was significant bleeding. It might be related to her previous DVT problems. Hemostasis . Once the medial half of the gastrocnemius was . The larger veins had to be suture ligated and cauterized. Dissection was slow and tedious due to the reoccurring bleeding. Elevation of the medial gastrocnemius flap with a 10 blade through the fascia was then done from distal to proximal extent. Care was taken to protect the deeper vessels. Plantaris tendon had to be excised. It was used to differentiate between the medial and the lateral heads of the gastrocnemius. Once the muscle had been released also from the lateral head, it was then rotated onto the area of the defect. The tendon was able to cover the further most point of open wound. It was then stabilized using 2-0 undyed Vicryl sutures. Once the prosthesis was covered completely, the skin flaps were reapplied into position. Repair was carried out in multiple layers. A ALMAZ drain was applied in the posterior calf. A split-thickness skin graft Patrice dermatome was utilized cut to a 10th of an inch thickness. It was fixated using kd. At the end of the procedure circulation was satisfactory. Capillary refill was less than 3 seconds. dressing consisted of Xeroform, bacitracin over the graft. Kd were used for final closure in certain areas. ALMAZ was brought down from the distal most aspect and was stabilized. Dressing was applied consisting of Xeroform, bacitracin, 4 x 4 combined with Coban was applied including the foot and the entire leg. Patient was then put in an immobilizer. Total estimated blood loss approximately between the 2 surgeons would be around 300 mL. The rehab will be slow as we will have to evaluate the patient for bleeding as well as probability or possibility of infection will be kept in mind. This will be a long course still. Final decision regarding the success of gastrocnemius muscles and skin graft. MIGUEL SEE M.D. [id number]
--- NOTE | 2019-12-06 11:28 | PATH ---
Surgical Pathology Report Patient Name: KONRAD PETERSEN Med. Rec. #: [id number] /Age/Gender: 1940 (Age: 79) / F Account: [id number] Location: [facility] MED/SURG Taken: 12/04/2019 Received: 12/05/2019 Reported: 12/06/2019 Physicians: Fitz Pardo M.D. Specimen(s) Received RIGHT KNEE HARDWARE Clinical History Postop wound infection status post total knee replacement right knee Final Diagnosis RIGHT KNEE HARDWARE, REMOVAL: CONSISTENT WITH HARDWARE. GROSS EXAMINATION ONLY. Electronically Signed Marcelino Webber M.D. Gross Description Received fresh labeled "right knee hardware," are multiple portions of hardware, consistent with knee hardware. There are 5 white plastic portions of hardware ranging from 1.6-6.5 cm in greatest dimension. Also received within the same container are 2 foote metallic portions of hardware measuring 1.7 and 5.1 cm in greatest dimension. There are 3 foote metallic screws ranging from 3.6-6.0 cm in length and 3 foote metallic washers averaging 0.6 cm in diameter. No soft tissue is present. No sections are submitted, gross only. 12/05/2019 saudi12/05/2019
[2019-12-06] MEDS: VANCOMYCIN 1 GRAM (PRE-DOCKED) 1,000 MG/250 ML BAG IVPB SCH (13:01)
[2019-12-06] MEDS: LACTATED RINGERS SOLUTION 1,000 ML IV SCH ×2 (14:37→17:37)
--- NOTE | 2019-12-06 14:46 | PN ---
Progress Note, Physician History of Present Illness: stable no new issues feels better - Current Medication List Current Medications: Active Medications Acetaminophen (Tylenol -) 1,000 mg PO Q6H PRN PRN Reason: PAIN 1-3 Last Admin: 12/06/19 04:27 Dose: 1,000 mg Documented by: Albuterol Sulfate (Ventolin Hfa Inhaler -) 2 puff IH Q4H PRN PRN Reason: SHORT OF BREATH/WHEEZING Amino Acids (Prosource No Carb Liquid Pkt) 30 ml PO BID@0800,1730 [facility] Last Admin: 12/06/19 08:08 Dose: 30 ml Documented by: Apixaban (Eliquis -) 5 mg PO BID [facility] Last Admin: 12/06/19 09:23 Dose: 5 mg Documented by: Atorvastatin Calcium (Lipitor -) 10 mg PO HS [facility] Last Admin: 12/05/19 21:17 Dose: 10 mg Documented by: Clotrimazole (Lotrisone Cream (Small Tube)) 1 applic TP BID [facility] Last Admin: 12/06/19 09:42 Dose: 1 applic Documented by: Docusate Sodium (Colace -) 100 mg PO DAILY [facility] Last Admin: 12/06/19 09:23 Dose: 100 mg Documented by: Emollient Ointment (Aquaphor -) 1 applic TP BID [facility] Last Admin: 12/06/19 09:43 Dose: 1 applic Documented by: Gabapentin (Neurontin -) 100 mg PO TID [facility] Last Admin: 12/06/19 13:01 Dose: 100 mg Documented by: Ampicillin Sodium/Sulbactam (Sodium 3 gm/ Sodium Chloride) 100 mls @ 200 mls/hr IVPB Q6H-IV [facility] Last Admin: 12/06/19 14:37 Dose: 200 mls/hr Documented by: Lactated Ringer's (Lactated Ringers Solution) 1,000 mls @ 75 mls/hr IV ASDIR S Last Admin: 12/06/19 14:37 Dose: Not Given Documented by: Vancomycin HCl (Vancomycin (Pre-Docked)) 1,000 mg in 250 mls @ 166.667 mls/hr IVPB DAILY@1300 [facility]ARA; Protocol Last Admin: 12/06/19 13:01 Dose: 166.667 mls/hr Documented by: Lactobacillus Acidophilus (Bacid -) 1 tab PO DAILY [facility] Last Admin: 12/06/19 09:23 Dose: 1 tab Documented by: Melatonin (Melatonin) 3 mg PO HS PRN PRN Reason: INSOMNIA Morphine Sulfate (Morphine Sulfate) 1 mg IVPUSH Q4H PRN PRN Reason: PAIN LEVEL 7 - 10 Last Admin: 12/04/19 17:30 Dose: 1 mg Documented by: Ondansetron HCl (Zofran Injection) 4 mg IVPUSH Q6H PRN PRN Reason: NAUSEA Oxycodone HCl (Roxicodone -) 5 mg PO Q4H PRN PRN Reason: PAIN LEVEL 1-5 Last Admin: 12/06/19 09:21 Dose: 5 mg Documented by: Oxycodone HCl (Roxicodone -) 10 mg PO Q4H PRN PRN Reason: PAIN LEVEL 6-10 Last Admin: 12/05/19 22:13 Dose: 10 mg Documented by: Polyethylene Glycol (Miralax (For Daily Use) -) 17 gm PO DAILY PRN PRN Reason: CONSTIPATION Senna (Senna -) 1 tab PO HS [facility] Last Admin: 12/05/19 21:18 Dose: 1 tab Documented by: - Objective Vital Signs: Vital Signs Temperature 98.7 F 12/06/19 09:34 Pulse Rate 84 12/06/19 09:34 Respiratory Rate 18 12/06/19 09:34 Blood Pressure 130/72 12/06/19 09:34 O2 Sat by Pulse Oximetry (%) 96 12/06/19 09:00 Constitutional: Yes: No Distress, Calm Cardiovascular: Yes: S1, S2 Respiratory: Yes: Regular, CTA Bilaterally Gastrointestinal: Yes: Normal Bowel Sounds, Soft Musculoskeletal: Yes: WNL Extremities: Yes: Other Wound/Incision: Yes: Dressing Dry and Intact Neurological: Yes: Alert, Oriented Labs: CBC, BMP 12/06/19 10:35 12/06/19 10:35 INR, PTT INR 0.97 (0.83-1.09) 12/04/19 07:10 Assessment/Plan Problem List - Problems (1) History of DVT (deep vein thrombosis) Code(s): Z86.718 - PERSONAL HISTORY OF OTHER VENOUS THROMBOSIS AND EMBOLISM (2) Right foot drop Code(s): M21.371 - FOOT DROP, RIGHT FOOT (3) Surgical wound infection Code(s): T81.49XA - INFECTION FOLLOWING A PROCEDURE, OTHER SURGICAL SITE, INIT (4) S/P total knee replacement Code(s): Z96.659 - PRESENCE OF UNSPECIFIED ARTIFICIAL KNEE JOINT Qualifiers: (5) COVID-19 Code(s): U07.1 - COVID POSITIVE (6) Hypertension Code(s): I10 - ESSENTIAL (PRIMARY) HYPERTENSION (7) Inability to ambulate due to knee Code(s): R26.2 - DIFFICULTY IN WALKING, NOT ELSEWHERE CLASSIFIED (8) Yanet-prosthetic fracture around prosthetic knee Code(s): M97.8XXA - PERIPROSTH FRACTURE AROUND OTHER INTERNAL PROSTH JOINT, INIT; Z96.659 - PRESENCE OF UNSPECIFIED ARTIFICIAL KNEE JOINT (9) COPD (chronic obstructive pulmonary disease) Code(s): J44.9 - CHRONIC OBSTRUCTIVE PULMONARY DISEASE, UNSPECIFIED (10) History of revision of total knee arthroplasty Code(s): Z96.659 - PRESENCE OF UNSPECIFIED ARTIFICIAL KNEE JOINT Assessment/Plan 79 y.o. female with PMH of HTN, COPD, Rt pop DVT, COVID, s/p revision of RT TKR and debridements with tibial wound/hardware exposure and possible patellar rupture readmitted for further management Rt tibial wound infection s/p debridement +MRSA /wound vac Rt TKR s/p revisions Possible Rt patellar rupture continue abx cx reports noted
[2019-12-06] MEDS: ATORVASTATIN CA 10 MG TABLET (FP) PO SCH (21:43)
[2019-12-06] MEDS: SENNOSIDES 8.6MG TABLET (FP) PO SCH (21:43)
[2019-12-06] MEDS: MELATONIN 1 MG TABLET PO PRN (21:44)
[2019-12-07] MEDS ORDERED: PT OWN MED DRAWER 7, Y5N ONE ×2 (02:17→09:25)
[2019-12-07] MEDS: AMPICILLIN NA/SULBACTAM NA 3 GM in SODIUM CHLORIDE 100 ML IVPB SCH ×2 (02:28→09:28)
[2019-12-07] MEDS: GABAPENTIN 100 MG CAPSULE PO SCH ×3 (05:06→22:01)
--- NOTE | 2019-12-07 09:12 | PN ---
Progress Note, Physician - Current Medication List Current Medications: Active Medications Acetaminophen (Tylenol -) 1,000 mg PO Q6H PRN PRN Reason: PAIN 1-3 Last Admin: 12/06/19 04:27 Dose: 1,000 mg Documented by: Albuterol Sulfate (Ventolin Hfa Inhaler -) 2 puff IH Q4H PRN PRN Reason: SHORT OF BREATH/WHEEZING Amino Acids (Prosource No Carb Liquid Pkt) 30 ml PO BID@0800,1730 [facility] Last Admin: 12/06/19 17:06 Dose: 30 ml Documented by: Apixaban (Eliquis -) 5 mg PO BID [facility] Last Admin: 12/06/19 21:43 Dose: 5 mg Documented by: Atorvastatin Calcium (Lipitor -) 10 mg PO HS [facility] Last Admin: 12/06/19 21:43 Dose: 10 mg Documented by: Clotrimazole (Lotrisone Cream (Small Tube)) 1 applic TP BID [facility] Last Admin: 12/06/19 21:43 Dose: 1 applic Documented by: Docusate Sodium (Colace -) 100 mg PO DAILY [facility] Last Admin: 12/06/19 09:23 Dose: 100 mg Documented by: Emollient Ointment (Aquaphor -) 1 applic TP BID [facility] Last Admin: 12/06/19 21:43 Dose: 1 applic Documented by: Gabapentin (Neurontin -) 100 mg PO TID [facility] Last Admin: 12/07/19 05:06 Dose: 100 mg Documented by: Ampicillin Sodium/Sulbactam (Sodium 3 gm/ Sodium Chloride) 100 mls @ 200 mls/hr IVPB Q6H-IV [facility] Last Admin: 12/07/19 02:28 Dose: 200 mls/hr Documented by: Lactated Ringer's (Lactated Ringers Solution) 1,000 mls @ 75 mls/hr IV ASDIR [facility] Last Admin: 12/06/19 17:37 Dose: 75 mls/hr Documented by: Vancomycin HCl (Vancomycin (Pre-Docked)) 1,000 mg in 250 mls @ 166.667 mls/hr IVPB DAILY@1300 TARA; Protocol Last Admin: 12/06/19 13:01 Dose: 166.667 mls/hr Documented by: Lactobacillus Acidophilus (Bacid -) 1 tab PO DAILY [facility] Last Admin: 12/06/19 09:23 Dose: 1 tab Documented by: Melatonin (Melatonin) 3 mg PO HS PRN PRN Reason: INSOMNIA Last Admin: 12/06/19 21:44 Dose: 3 mg Documented by: Morphine Sulfate (Morphine Sulfate) 1 mg IVPUSH Q4H PRN PRN Reason: PAIN LEVEL 7 - 10 Last Admin: 12/04/19 17:30 Dose: 1 mg Documented by: Ondansetron HCl (Zofran Injection) 4 mg IVPUSH Q6H PRN PRN Reason: NAUSEA Oxycodone HCl (Roxicodone -) 5 mg PO Q4H PRN PRN Reason: PAIN LEVEL 1-5 Last Admin: 12/06/19 17:38 Dose: 5 mg Documented by: Oxycodone HCl (Roxicodone -) 10 mg PO Q4H PRN PRN Reason: PAIN LEVEL 6-10 Last Admin: 12/06/19 20:26 Dose: 10 mg Documented by: Polyethylene Glycol (Miralax (For Daily Use) -) 17 gm PO DAILY PRN PRN Reason: CONSTIPATION Senna (Senna -) 1 tab PO HS [facility] Last Admin: 12/06/19 21:43 Dose: 1 tab Documented by: - Objective Vital Signs: Vital Signs Temperature 98.2 F 12/07/19 06:00 Pulse Rate 82 12/07/19 06:00 Respiratory Rate 20 12/07/19 06:00 Blood Pressure 126/62 12/07/19 06:00 O2 Sat by Pulse Oximetry (%) 95 12/06/19 20:04 Cardiovascular: Yes: S1, S2 Respiratory: Yes: Regular, CTA Bilaterally Gastrointestinal: Yes: Normal Bowel Sounds, Soft Labs: CBC, BMP 12/06/19 10:35 12/06/19 10:35 INR, PTT INR 0.97 (0.83-1.09) 12/04/19 07:10 Assessment/Plan - Problems (1) Right foot drop Assessment/Plan: -Kerlix over the foot for pt to be able to flex and extend her foot 10 x Q1H -Nursing staff educated to stimulate the ankle by flexing and extending it during their visits in patients room. -OOBTC daily with knee immobilizer -PT/OT/Rehab per ortho Problems reviewed: Yes Code(s): M21.371 - FOOT DROP, RIGHT FOOT (2) Surgical wound infection Assessment/Plan: -Last cultures + MRSA -ID consult -IV Vanco -Skin flap with plastic surgery done on 12/04/19 Problems reviewed: Yes Code(s): T81.49XA - INFECTION FOLLOWING A PROCEDURE, OTHER SURGICAL SITE, INIT (3) S/P total knee replacement Assessment/Plan: -Seen by orthopedic surgery -WBAT per surgery -Pain management with tylenol 1g Q6H PRN -NO ROM Right knee (due to patellar ligament rupture). -Neurontin 100mg PO BID, increase it to TID- tolerating well -Vac changes +/- bedside debridements q48-72 hours by surgical team only. -DVT ppx -s/p skin flap on 12/04/19 in OR with orthopedic and plastic surgery -Ewsume Lovenox 70 mg BID once cleared by surgery Problems reviewed: Yes Code(s): Z96.659 - PRESENCE OF UNSPECIFIED ARTIFICIAL KNEE JOINT Qualifiers: (4) Hypertension Assessment/Plan: -Low sodium diet Problems reviewed: Yes Code(s): I10 - ESSENTIAL (PRIMARY) HYPERTENSION (5) History of DVT (deep vein thrombosis) Assessment/Plan: -In right popliteal and posterior tibial vein -Hold eliquis until after surgery -Lovenox BID once cleared Problems reviewed: Yes Code(s): Z86.718 - PERSONAL HISTORY OF OTHER VENOUS THROMBOSIS AND EMBOLISM (6) Constipation Assessment/Plan: -resolved -Colace 100 mg po daily Problems reviewed: Yes Code(s): K59.00 - CONSTIPATION, UNSPECIFIED (7) Hemorrhoids Assessment/Plan: -Resolved -d/c Anusol supp BID Problems reviewed: Yes Code(s): K64.9 - UNSPECIFIED HEMORRHOIDS (8) Nausea & vomiting Assessment/Plan: -Resolved -AXR F&U-unremarkable -Likely zinc causing GI symptoms Problems reviewed: Yes Code(s): R11.2 - NAUSEA WITH VOMITING, UNSPECIFIED (9) Suprapubic discomfort Assessment/Plan: -UA reviewed -UC-+ VRE -Bladder scan- no retention Problems reviewed: Yes Code(s): R10.2 - PELVIC AND PERINEAL PAIN (10) VRE (vancomycin resistant enterococcus) culture positive Assessment/Plan: -Change augmentin to Unasyn Problems reviewed: Yes Code(s): Z22.39 - CARRIER OF OTHER SPECIFIED BACTERIAL DISEASES
[2019-12-07] MEDS: MINERAL OIL/PET HY-PHL TOPICAL OINTMENT 454 GM JAR TP SCH ×2 (09:28→22:01)
[2019-12-07] MEDS: AMINO ACIDS/PROTEIN HYDROLYS 30 ML LIQUID.PKT PO SCH ×2 (09:28→16:52)
[2019-12-07] MEDS: APIXABAN 5 MG TABLET PO SCH ×2 (09:28→22:01)
[2019-12-07] MEDS: LACTOBACILLUS ACIDOPHILUS 1 TABLET PO SCH (09:28)
[2019-12-07] MEDS: CLOTRIMAZOLE/BETAMET DIPROP 15 GM TUBE TP SCH ×2 (09:29→22:02)
[2019-12-07] MEDS: DOCUSATE SODIUM 100 MG CAPSULE (FP) PO SCH (09:29)
[2019-12-07] MEDS: oxyCODONE HCL 5 MG TABLET PO PRN (09:34)
--- NOTE | 2019-12-07 10:50 | PN ---
Progress Note, Physician History of Present Illness: stable no new issues post op stable - Current Medication List Current Medications: Active Medications Acetaminophen (Tylenol -) 1,000 mg PO Q6H PRN PRN Reason: PAIN 1-3 Last Admin: 12/06/19 04:27 Dose: 1,000 mg Documented by: Albuterol Sulfate (Ventolin Hfa Inhaler -) 2 puff IH Q4H PRN PRN Reason: SHORT OF BREATH/WHEEZING Amino Acids (Prosource No Carb Liquid Pkt) 30 ml PO BID@0800,1730 [facility] Last Admin: 12/07/19 09:28 Dose: 30 ml Documented by: Apixaban (Eliquis -) 5 mg PO BID [facility] Last Admin: 12/07/19 09:28 Dose: 5 mg Documented by: Atorvastatin Calcium (Lipitor -) 10 mg PO HS [facility] Last Admin: 12/06/19 21:43 Dose: 10 mg Documented by: Clotrimazole (Lotrisone Cream (Small Tube)) 1 applic TP BID [facility] Last Admin: 12/07/19 09:29 Dose: 1 applic Documented by: Docusate Sodium (Colace -) 100 mg PO DAILY [facility] Last Admin: 12/07/19 09:29 Dose: 100 mg Documented by: Emollient Ointment (Aquaphor -) 1 applic TP BID [facility] Last Admin: 12/07/19 09:28 Dose: 1 applic Documented by: Gabapentin (Neurontin -) 100 mg PO TID [facility] Last Admin: 12/07/19 05:06 Dose: 100 mg Documented by: Lactated Ringer's (Lactated Ringers Solution) 1,000 mls @ 75 mls/hr IV ASDIR [facility] Last Admin: 12/06/19 17:37 Dose: 75 mls/hr Documented by: Ceftriaxone Sodium (Ceftriaxone 2 Gm-D5w Bag) 2 gm in 50 mls @ 100 mls/hr IVPB DAILY [facility]; Protocol Lactobacillus Acidophilus (Bacid -) 1 tab PO DAILY [facility] Last Admin: 12/07/19 09:28 Dose: 1 tab Documented by: Melatonin (Melatonin) 3 mg PO HS PRN PRN Reason: INSOMNIA Last Admin: 12/06/19 21:44 Dose: 3 mg Documented by: Morphine Sulfate (Morphine Sulfate) 1 mg IVPUSH Q4H PRN PRN Reason: PAIN LEVEL 7 - 10 Last Admin: 12/04/19 17:30 Dose: 1 mg Documented by: Ondansetron HCl (Zofran Injection) 4 mg IVPUSH Q6H PRN PRN Reason: NAUSEA Oxycodone HCl (Roxicodone -) 5 mg PO Q4H PRN PRN Reason: PAIN LEVEL 1-5 Last Admin: 12/06/19 17:38 Dose: 5 mg Documented by: Oxycodone HCl (Roxicodone -) 10 mg PO Q4H PRN PRN Reason: PAIN LEVEL 6-10 Last Admin: 12/07/19 09:34 Dose: 10 mg Documented by: Polyethylene Glycol (Miralax (For Daily Use) -) 17 gm PO DAILY PRN PRN Reason: CONSTIPATION Senna (Senna -) 1 tab PO HS [facility]ARA Last Admin: 12/06/19 21:43 Dose: 1 tab Documented by: - Objective Vital Signs: Vital Signs Temperature 98.2 F 12/07/19 06:00 Pulse Rate 82 12/07/19 06:00 Respiratory Rate 20 12/07/19 06:00 Blood Pressure 126/62 12/07/19 06:00 O2 Sat by Pulse Oximetry (%) 95 12/06/19 20:04 Constitutional: Yes: No Distress, Calm Cardiovascular: Yes: S1, S2 Respiratory: Yes: Regular, CTA Bilaterally Gastrointestinal: Yes: Normal Bowel Sounds, Soft Musculoskeletal: Yes: WNL Extremities: Yes: WNL Neurological: Yes: Alert, Oriented Psychiatric: Yes: Alert, Oriented Labs: CBC, BMP 12/06/19 10:35 12/06/19 10:35 INR, PTT INR 0.97 (0.83-1.09) 12/04/19 07:10 Assessment/Plan Problem List - Problems (1) History of DVT (deep vein thrombosis) Code(s): Z86.718 - PERSONAL HISTORY OF OTHER VENOUS THROMBOSIS AND EMBOLISM (2) Right foot drop Code(s): M21.371 - FOOT DROP, RIGHT FOOT (3) Surgical wound infection Code(s): T81.49XA - INFECTION FOLLOWING A PROCEDURE, OTHER SURGICAL SITE, INIT (4) S/P total knee replacement Code(s): Z96.659 - PRESENCE OF UNSPECIFIED ARTIFICIAL KNEE JOINT Qualifiers: (5) COVID-19 Code(s): U07.1 - COVID POSITIVE (6) Hypertension Code(s): I10 - ESSENTIAL (PRIMARY) HYPERTENSION (7) Inability to ambulate due to knee Code(s): R26.2 - DIFFICULTY IN WALKING, NOT ELSEWHERE CLASSIFIED (8) Yanet-prosthetic fracture around prosthetic knee Code(s): M97.8XXA - PERIPROSTH FRACTURE AROUND OTHER INTERNAL PROSTH JOINT, INIT; Z96.659 - PRESENCE OF UNSPECIFIED ARTIFICIAL KNEE JOINT (9) COPD (chronic obstructive pulmonary disease) Code(s): J44.9 - CHRONIC OBSTRUCTIVE PULMONARY DISEASE, UNSPECIFIED (10) History of revision of total knee arthroplasty Code(s): Z96.659 - PRESENCE OF UNSPECIFIED ARTIFICIAL KNEE JOINT Assessment/Plan 79 y.o. female with PMH of HTN, COPD, Rt pop DVT, COVID, s/p revision of RT TKR and debridements with tibial wound/hardware exposure and possible patellar rupture readmitted for further management Rt tibial wound infection s/p debridement +MRSA /wound vac Rt TKR s/p revisions Possible Rt patellar rupture continue abx cx reports noted will switch to ceftriaxone 2gm daily need to give it for another 4 weeks
[2019-12-07] MEDS ORDERED: DEXTROSE 5%-WATER 100 ML IVPB ONE (10:58)
[2019-12-07] MEDS: CEFTRIAXONE 2 GM in DEXTROSE 5%-WATER 100 ML IVPB SCH (11:14)
--- NOTE | 2019-12-07 12:35 | PN ---
Progress Note (short form) - Note Progress Note: Post Op Day 3 Patient evaluated with Cathryn DAVID Awake alert sitting in chair, no cough . C/O On and off shooting pains, occur briefly and disappear.Reasons explained . Dressings removed, Leg swelling 3+. Suture line intact, capillary refill less than 3 sec. Swelling foot 3+, sensation intact both planter and dorsal surface, able to move toes Tendo achilles inplace, Graft present pale in color Donor site covered with zeroform and tegaderm Discussed with Dr Barron Pardo Patient will benefit with HBO for better graft take and healing,, HBO for partial graft failure This patient requires all modes of healing for optimal healing. Will continue to follow patient All wounds redressed. Wound C&S noted Microbiology 12/04/19 10:31 Knee - Right Gram Stain - Final 12/04/19 10:31 Knee - Right Wound Culture - Preliminary Klebsiella Pneumoniae Selected Entries 12/07/19 12/07/19 12/07/19 06:00 09:00 10:00 Temperature 98.2 F 98.9 F Pulse Strength Normal [Right Dorsalis Pedis] Respiratory 20 20 Rate Blood Pressure 126/62 137/62 Blood Pressure 81 Mean Laboratory Tests 12/06/19 10:35 WBC 12.1 H RBC 3.71 Hgb 11.8 Hct 35.0 MCV 94.4 MCH 31.7 MCHC 33.6 RDW 16.1 H Plt Count 447 H D MPV 6.8 L Absolute Neuts (auto) 8.1 H Neutrophils % 66.9 Lymphocytes % 21.9 D Monocytes % 9.3 Eosinophils % 1.3 D
[2019-12-07] MEDS: LACTATED RINGERS SOLUTION 1,000 ML IV SCH ×2 (16:54→22:05)
[2019-12-07] MEDS: SENNOSIDES 8.6MG TABLET (FP) PO SCH (22:01)
[2019-12-07] MEDS: ATORVASTATIN CA 10 MG TABLET (FP) PO SCH (22:01)
[2019-12-07] MEDS: MELATONIN 1 MG TABLET PO PRN (23:01)
[2019-12-08] MEDS: GABAPENTIN 100 MG CAPSULE PO SCH ×3 (06:27→21:22)
[2019-12-08] MEDS ORDERED: PT OWN MED DRAWER 7, Y5N ONE (09:49)
[2019-12-08] MEDS ORDERED: DEXTROSE 5%-WATER 100 ML IVPB ONE (09:49)
[2019-12-08] MEDS: DOCUSATE SODIUM 100 MG CAPSULE (FP) PO SCH (09:54)
[2019-12-08] MEDS: APIXABAN 5 MG TABLET PO SCH ×2 (09:54→21:20)
[2019-12-08] MEDS: AMINO ACIDS/PROTEIN HYDROLYS 30 ML LIQUID.PKT PO SCH ×2 (09:54→16:54)
[2019-12-08] MEDS: MINERAL OIL/PET HY-PHL TOPICAL OINTMENT 454 GM JAR TP SCH ×2 (09:54→21:21)
[2019-12-08] MEDS: LACTOBACILLUS ACIDOPHILUS 1 TABLET PO SCH (09:55)
[2019-12-08] MEDS: CLOTRIMAZOLE/BETAMET DIPROP 15 GM TUBE TP SCH ×2 (09:55→21:22)
[2019-12-08] MEDS: CEFTRIAXONE 2 GM in DEXTROSE 5%-WATER 100 ML IVPB SCH (09:55)
[2019-12-08] MEDS: ACETAMINOPHEN 500 MG TABLET (FP) PO PRN ×2 (10:00→21:20)
--- NOTE | 2019-12-08 10:10 | PN ---
Progress Note, Physician History of Present Illness: stable no new issues - Current Medication List Current Medications: Active Medications Acetaminophen (Tylenol -) 1,000 mg PO Q6H PRN PRN Reason: PAIN 1-3 Last Admin: 12/08/19 10:00 Dose: 1,000 mg Documented by: Albuterol Sulfate (Ventolin Hfa Inhaler -) 2 puff IH Q4H PRN PRN Reason: SHORT OF BREATH/WHEEZING Amino Acids (Prosource No Carb Liquid Pkt) 30 ml PO BID@0800,1730 [facility] Last Admin: 12/08/19 09:54 Dose: 30 ml Documented by: Apixaban (Eliquis -) 5 mg PO BID [facility] Last Admin: 12/08/19 09:54 Dose: 5 mg Documented by: Atorvastatin Calcium (Lipitor -) 10 mg PO HS [facility] Last Admin: 12/07/19 22:01 Dose: 10 mg Documented by: Clotrimazole (Lotrisone Cream (Small Tube)) 1 applic TP BID [facility] Last Admin: 12/08/19 09:55 Dose: 1 applic Documented by: Docusate Sodium (Colace -) 100 mg PO DAILY [facility] Last Admin: 12/08/19 09:54 Dose: 100 mg Documented by: Emollient Ointment (Aquaphor -) 1 applic TP BID [facility] Last Admin: 12/08/19 09:54 Dose: 1 applic Documented by: Gabapentin (Neurontin -) 100 mg PO TID [facility] Last Admin: 12/08/19 06:27 Dose: 100 mg Documented by: Lactated Ringer's (Lactated Ringers Solution) 1,000 mls @ 75 mls/hr IV ASDIR [facility] Last Admin: 12/07/19 22:05 Dose: 75 mls/hr Documented by: Ceftriaxone Sodium 2 gm/ (Dextrose) 100 mls @ 100 mls/hr IVPB DAILY [facility]; Protocol Last Admin: 12/08/19 09:55 Dose: 100 mls/hr Documented by: Lactobacillus Acidophilus (Bacid -) 1 tab PO DAILY [facility] Last Admin: 12/08/19 09:55 Dose: 1 tab Documented by: Melatonin (Melatonin) 3 mg PO HS PRN PRN Reason: INSOMNIA Last Admin: 12/07/19 23:01 Dose: 3 mg Documented by: Ondansetron HCl (Zofran Injection) 4 mg IVPUSH Q6H PRN PRN Reason: NAUSEA Polyethylene Glycol (Miralax (For Daily Use) -) 17 gm PO DAILY PRN PRN Reason: CONSTIPATION Last Admin: 12/08/19 10:01 Dose: 17 grams Documented by: Carlos (Senna -) 1 tab PO HS [facility] Last Admin: 12/07/19 22:01 Dose: 1 tab Documented by: - Objective Vital Signs: Vital Signs Temperature 98.3 F 12/08/19 06:32 Pulse Rate 82 12/08/19 06:32 Respiratory Rate 12/08/19 06:32 Blood Pressure 137/68 12/08/19 06:32 O2 Sat by Pulse Oximetry (%) 95 12/07/19 21:00 Constitutional: Yes: No Distress, Calm Cardiovascular: Yes: S1, S2 Respiratory: Yes: Regular, CTA Bilaterally Gastrointestinal: Yes: Normal Bowel Sounds, Soft Musculoskeletal: Yes: WNL Extremities: Yes: Other Neurological: Yes: Alert, Oriented Psychiatric: Yes: Alert, Oriented Labs: CBC, BMP 12/06/19 10:35 12/06/19 10:35 INR, PTT INR 0.97 (0.83-1.09) 12/04/19 07:10 Assessment/Plan Problem List - Problems (1) History of DVT (deep vein thrombosis) Code(s): Z86.718 - PERSONAL HISTORY OF OTHER VENOUS THROMBOSIS AND EMBOLISM (2) Right foot drop Code(s): M21.371 - FOOT DROP, RIGHT FOOT (3) Surgical wound infection Code(s): T81.49XA - INFECTION FOLLOWING A PROCEDURE, OTHER SURGICAL SITE, INIT (4) S/P total knee replacement Code(s): Z96.659 - PRESENCE OF UNSPECIFIED ARTIFICIAL KNEE JOINT Qualifiers: (5) COVID-19 Code(s): U07.1 - COVID POSITIVE (6) Hypertension Code(s): I10 - ESSENTIAL (PRIMARY) HYPERTENSION (7) Inability to ambulate due to knee Code(s): R26.2 - DIFFICULTY IN WALKING, NOT ELSEWHERE CLASSIFIED (8) Yanet-prosthetic fracture around prosthetic knee Code(s): M97.8XXA - PERIPROSTH FRACTURE AROUND OTHER INTERNAL PROSTH JOINT, INIT; Z96.659 - PRESENCE OF UNSPECIFIED ARTIFICIAL KNEE JOINT (9) COPD (chronic obstructive pulmonary disease) Code(s): J44.9 - CHRONIC OBSTRUCTIVE PULMONARY DISEASE, UNSPECIFIED (10) History of revision of total knee arthroplasty Code(s): Z96.659 - PRESENCE OF UNSPECIFIED ARTIFICIAL KNEE JOINT Assessment/Plan 79 y.o. female with PMH of HTN, COPD, Rt pop DVT, COVID, s/p revision of RT TKR and debridements with tibial wound/hardware exposure and possible patellar rupture readmitted for further management Rt tibial wound infection s/p debridement +MRSA /wound vac Rt TKR s/p revisions Possible Rt patellar rupture continue abx ceftriaxone 2g daily
--- NOTE | 2019-12-08 11:26 | PN ---
Progress Note, Physician Chief Complaint: EVENTS AND NOTES REVIEWED - Current Medication List Current Medications: Active Medications Acetaminophen (Tylenol -) 1,000 mg PO Q6H PRN PRN Reason: PAIN 1-3 Last Admin: 12/08/19 10:00 Dose: 1,000 mg Documented by: Albuterol Sulfate (Ventolin Hfa Inhaler -) 2 puff IH Q4H PRN PRN Reason: SHORT OF BREATH/WHEEZING Amino Acids (Prosource No Carb Liquid Pkt) 30 ml PO BID@0800,1730 [facility] Last Admin: 12/08/19 09:54 Dose: 30 ml Documented by: Apixaban (Eliquis -) 5 mg PO BID [facility] Last Admin: 12/08/19 09:54 Dose: 5 mg Documented by: Atorvastatin Calcium (Lipitor -) 10 mg PO HS [facility] Last Admin: 12/07/19 22:01 Dose: 10 mg Documented by: Clotrimazole (Lotrisone Cream (Small Tube)) 1 applic TP BID [facility] Last Admin: 12/08/19 09:55 Dose: 1 applic Documented by: Docusate Sodium (Colace -) 100 mg PO DAILY [facility] Last Admin: 12/08/19 09:54 Dose: 100 mg Documented by: Emollient Ointment (Aquaphor -) 1 applic TP BID [facility] Last Admin: 12/08/19 09:54 Dose: 1 applic Documented by: Gabapentin (Neurontin -) 100 mg PO TID [facility] Last Admin: 12/08/19 06:27 Dose: 100 mg Documented by: Lactated Ringer's (Lactated Ringers Solution) 1,000 mls @ 75 mls/hr IV ASDIR [facility] Last Admin: 12/07/19 22:05 Dose: 75 mls/hr Documented by: Ceftriaxone Sodium 2 gm/ (Dextrose) 100 mls @ 100 mls/hr IVPB DAILY [facility]; Protocol Last Admin: 12/08/19 09:55 Dose: 100 mls/hr Documented by: Lactobacillus Acidophilus (Bacid -) 1 tab PO DAILY [facility] Last Admin: 12/08/19 09:55 Dose: 1 tab Documented by: Melatonin (Melatonin) 3 mg PO HS PRN PRN Reason: INSOMNIA Last Admin: 12/07/19 23:01 Dose: 3 mg Documented by: Ondansetron HCl (Zofran Injection) 4 mg IVPUSH Q6H PRN PRN Reason: NAUSEA Polyethylene Glycol (Miralax (For Daily Use) -) 17 gm PO DAILY PRN PRN Reason: CONSTIPATION Last Admin: 12/08/19 10:01 Dose: 17 grams Documented by: Carlos (Senna -) 1 tab PO HS [facility] Last Admin: 12/07/19 22:01 Dose: 1 tab Documented by: - Objective Vital Signs: Vital Signs Temperature 98.0 F 12/08/19 09:00 Pulse Rate 90 12/08/19 09:00 Respiratory Rate 12/08/19 09:00 Blood Pressure 120/70 12/08/19 09:00 O2 Sat by Pulse Oximetry (%) 95 12/07/19 21:00 Constitutional: Yes: Mild Distress Cardiovascular: Yes: Pulse Irregular Respiratory: Yes: CTA Bilaterally Genitourinary: Yes: Incontinence Musculoskeletal: Yes: Muscle Weakness Extremities: Yes: Deformity Wound/Incision: Yes: Dressing Dry and Intact Neurological: Yes: Pre-Existing Deficit Labs: CBC, BMP 12/06/19 10:35 12/06/19 10:35 INR, PTT INR 0.97 (0.83-1.09) 12/04/19 07:10 Problem List - Problems (1) History of DVT (deep vein thrombosis) Code(s): Z86.718 - PERSONAL HISTORY OF OTHER VENOUS THROMBOSIS AND EMBOLISM (2) Right foot drop Code(s): M21.371 - FOOT DROP, RIGHT FOOT (3) Surgical wound infection Code(s): T81.49XA - INFECTION FOLLOWING A PROCEDURE, OTHER SURGICAL SITE, INIT (4) S/P total knee replacement Code(s): Z96.659 - PRESENCE OF UNSPECIFIED ARTIFICIAL KNEE JOINT Qualifiers: (5) History of revision of total knee arthroplasty Code(s): Z96.659 - PRESENCE OF UNSPECIFIED ARTIFICIAL KNEE JOINT Assessment/Plan PAIN CONTROL CONTINUE WRITTEN IV ABX PER ID PLASTIC SURGERY FOR FLAP EVAL OF SKIN DVT ON ELIQUIS CONTINUE PT EVAL WITH ORTHOPEDICS, WILL NEED PLACEMENT TO SNF. FALL RISKS D/W PATIENT OOB TO CHAIR ASSIST NEEDED LABS REVIEWED
[2019-12-08] MEDS: LACTATED RINGERS SOLUTION 1,000 ML IV SCH (14:38)
[2019-12-08] MEDS: ATORVASTATIN CA 10 MG TABLET (FP) PO SCH (21:20)
[2019-12-08] MEDS: SENNOSIDES 8.6MG TABLET (FP) PO SCH (21:22)
[2019-12-09] MEDS: GABAPENTIN 100 MG CAPSULE PO SCH ×3 (05:55→21:39)
[2019-12-09] MEDS ORDERED: DEXTROSE 5%-WATER 100 ML IVPB ONE (09:04)
[2019-12-09] MEDS: AMINO ACIDS/PROTEIN HYDROLYS 30 ML LIQUID.PKT PO SCH ×2 (09:17→17:02)
[2019-12-09] MEDS: DOCUSATE SODIUM 100 MG CAPSULE (FP) PO SCH (09:17)
[2019-12-09] MEDS: LACTOBACILLUS ACIDOPHILUS 1 TABLET PO SCH (09:17)
[2019-12-09] MEDS: ACETAMINOPHEN 500 MG TABLET (FP) PO PRN ×2 (09:17→22:27)
[2019-12-09] MEDS: CLOTRIMAZOLE/BETAMET DIPROP 15 GM TUBE TP SCH ×2 (09:18→21:39)
[2019-12-09] MEDS: APIXABAN 5 MG TABLET PO SCH ×2 (09:18→21:39)
[2019-12-09] MEDS: CEFTRIAXONE 2 GM in DEXTROSE 5%-WATER 100 ML IVPB SCH (09:18)
[2019-12-09] MEDS: MINERAL OIL/PET HY-PHL TOPICAL OINTMENT 454 GM JAR TP SCH ×2 (09:18→21:38)
[2019-12-09] MEDS: FUROSEMIDE 40 MG/4 ML INJECTABLE VIAL IVPUSH SCH (10:02)
--- NOTE | 2019-12-09 11:11 | PN ---
Progress Note, Physician Chief Complaint: AWAKE ALERT C/O LEG EDEMA DENIES SOB/CHEST PAIN - Current Medication List Current Medications: Active Medications Acetaminophen (Tylenol -) 1,000 mg PO Q6H PRN PRN Reason: PAIN 1-3 Last Admin: 12/09/19 09:17 Dose: 1,000 mg Documented by: Albuterol Sulfate (Ventolin Hfa Inhaler -) 2 puff IH Q4H PRN PRN Reason: SHORT OF BREATH/WHEEZING Amino Acids (Prosource No Carb Liquid Pkt) 30 ml PO BID@0800,1730 [facility] Last Admin: 12/09/19 09:17 Dose: 30 ml Documented by: Apixaban (Eliquis -) 5 mg PO BID [facility] Last Admin: 12/09/19 09:18 Dose: 5 mg Documented by: Atorvastatin Calcium (Lipitor -) 10 mg PO HS [facility] Last Admin: 12/08/19 21:20 Dose: 10 mg Documented by: Clotrimazole (Lotrisone Cream (Small Tube)) 1 applic TP BID [facility] Last Admin: 12/09/19 09:18 Dose: 1 applic Documented by: Docusate Sodium (Colace -) 100 mg PO DAILY [facility] Last Admin: 12/09/19 09:17 Dose: 100 mg Documented by: Emollient Ointment (Aquaphor -) 1 applic TP BID [facility] Last Admin: 12/09/19 09:18 Dose: 1 applic Documented by: Furosemide (Lasix Injection -) 40 mg IVPUSH DAILY [facility] Last Admin: 12/09/19 10:02 Dose: 40 mg Documented by: Gabapentin (Neurontin -) 100 mg PO TID [facility] Last Admin: 12/09/19 05:55 Dose: 100 mg Documented by: Ceftriaxone Sodium 2 gm/ (Dextrose) 100 mls @ 100 mls/hr IVPB DAILY [facility]; Protocol Last Admin: 12/09/19 09:18 Dose: 100 mls/hr Documented by: Lactobacillus Acidophilus (Bacid -) 1 tab PO DAILY [facility] Last Admin: 12/09/19 09:17 Dose: 1 tab Documented by: Melatonin (Melatonin) 3 mg PO HS PRN PRN Reason: INSOMNIA Last Admin: 12/07/19 23:01 Dose: 3 mg Documented by: Ondansetron HCl (Zofran Injection) 4 mg IVPUSH Q6H PRN PRN Reason: NAUSEA Polyethylene Glycol (Miralax (For Daily Use) -) 17 gm PO DAILY PRN PRN Reason: CONSTIPATION Last Admin: 12/08/19 10:01 Dose: 17 grams Documented by: Carlos (Senna -) 1 tab PO HS [facility] Last Admin: 12/08/19 21:22 Dose: 1 tab Documented by: - Objective Vital Signs: Vital Signs Temperature 98.4 F 12/09/19 06:00 Pulse Rate 81 12/09/19 06:00 Respiratory Rate 12/09/19 09:00 Blood Pressure 158/79 12/09/19 06:00 O2 Sat by Pulse Oximetry (%) 95 12/08/19 21:00 Constitutional: Yes: No Distress Cardiovascular: Yes: Pulse Irregular Respiratory: Yes: Regular Gastrointestinal: Yes: Soft Genitourinary: Yes: Incontinence Edema: Yes Edema: LLE: 2+, RLE: Trace Integumentary: Yes: Erythema, Rash Wound/Incision: Yes: Dressing Dry and Intact Neurological: Yes: Pre-Existing Deficit Labs: CBC, BMP 12/06/19 10:35 12/06/19 10:35 INR, PTT INR 0.97 (0.83-1.09) 12/04/19 07:10 Problem List - Problems (1) History of DVT (deep vein thrombosis) Code(s): Z86.718 - PERSONAL HISTORY OF OTHER VENOUS THROMBOSIS AND EMBOLISM (2) Right foot drop Code(s): M21.371 - FOOT DROP, RIGHT FOOT (3) Surgical wound infection Code(s): T81.49XA - INFECTION FOLLOWING A PROCEDURE, OTHER SURGICAL SITE, INIT (4) S/P total knee replacement Code(s): Z96.659 - PRESENCE OF UNSPECIFIED ARTIFICIAL KNEE JOINT Qualifiers: (5) History of revision of total knee arthroplasty Code(s): Z96.659 - PRESENCE OF UNSPECIFIED ARTIFICIAL KNEE JOINT Assessment/Plan PAIN CONTROL CONTINUE WRITTEN IV ABX PER ID PLASTIC SURGERY FOR FLAP EVAL OF SKIN DVT ON ELIQUIS CONTINUE PT EVAL WITH ORTHOPEDICS, WILL NEED PLACEMENT TO SNF. FALL RISKS D/W PATIENT OOB TO CHAIR ASSIST NEEDED LABS REVIEWED ADD LASIX 40MG DAILY [facility]
--- NOTE | 2019-12-09 12:54 | PN ---
Progress Note, Physician History of Present Illness: stable no new issues dressing being changed - Current Medication List Current Medications: Active Medications Acetaminophen (Tylenol -) 1,000 mg PO Q6H PRN PRN Reason: PAIN 1-3 Last Admin: 12/09/19 09:17 Dose: 1,000 mg Documented by: Albuterol Sulfate (Ventolin Hfa Inhaler -) 2 puff IH Q4H PRN PRN Reason: SHORT OF BREATH/WHEEZING Amino Acids (Prosource No Carb Liquid Pkt) 30 ml PO BID@0800,1730 [facility] Last Admin: 12/09/19 09:17 Dose: 30 ml Documented by: Apixaban (Eliquis -) 5 mg PO BID [facility] Last Admin: 12/09/19 09:18 Dose: 5 mg Documented by: Atorvastatin Calcium (Lipitor -) 10 mg PO HS [facility] Last Admin: 12/08/19 21:20 Dose: 10 mg Documented by: Clotrimazole (Lotrisone Cream (Small Tube)) 1 applic TP BID [facility] Last Admin: 12/09/19 09:18 Dose: 1 applic Documented by: Docusate Sodium (Colace -) 100 mg PO DAILY [facility] Last Admin: 12/09/19 09:17 Dose: 100 mg Documented by: Emollient Ointment (Aquaphor -) 1 applic TP BID [facility] Last Admin: 12/09/19 09:18 Dose: 1 applic Documented by: Furosemide (Lasix Injection -) 40 mg IVPUSH DAILY [facility] Last Admin: 12/09/19 10:02 Dose: 40 mg Documented by: Gabapentin (Neurontin -) 100 mg PO TID [facility] Last Admin: 12/09/19 05:55 Dose: 100 mg Documented by: Ceftriaxone Sodium 2 gm/ (Dextrose) 100 mls @ 100 mls/hr IVPB DAILY [facility]; Protocol Last Admin: 12/09/19 09:18 Dose: 100 mls/hr Documented by: Lactobacillus Acidophilus (Bacid -) 1 tab PO DAILY [facility] Last Admin: 12/09/19 09:17 Dose: 1 tab Documented by: Melatonin (Melatonin) 3 mg PO HS PRN PRN Reason: INSOMNIA Last Admin: 12/07/19 23:01 Dose: 3 mg Documented by: Ondansetron HCl (Zofran Injection) 4 mg IVPUSH Q6H PRN PRN Reason: NAUSEA Polyethylene Glycol (Miralax (For Daily Use) -) 17 gm PO DAILY PRN PRN Reason: CONSTIPATION Last Admin: 12/08/19 10:01 Dose: 17 grams Documented by: Carlos (Senna -) 1 tab PO HS [facility] Last Admin: 12/08/19 21:22 Dose: 1 tab Documented by: - Objective Vital Signs: Vital Signs Temperature 98.4 F 12/09/19 06:00 Pulse Rate 81 12/09/19 06:00 Respiratory Rate 20 12/09/19 09:00 Blood Pressure 158/79 12/09/19 06:00 O2 Sat by Pulse Oximetry (%) 95 12/08/19 21:00 Constitutional: Yes: No Distress, Calm Cardiovascular: Yes: S1, S2 Respiratory: Yes: Regular, CTA Bilaterally Gastrointestinal: Yes: Normal Bowel Sounds, Soft Musculoskeletal: Yes: WNL Extremities: Yes: Other Wound/Incision: Yes: Dressing Dry and Intact, Dressing Removed Neurological: Yes: Alert, Oriented Psychiatric: Yes: Alert, Oriented Labs: CBC, BMP 12/06/19 10:35 12/06/19 10:35 INR, PTT INR 0.97 (0.83-1.09) 12/04/19 07:10 Assessment/Plan Problem List - Problems (1) History of DVT (deep vein thrombosis) Code(s): Z86.718 - PERSONAL HISTORY OF OTHER VENOUS THROMBOSIS AND EMBOLISM (2) Right foot drop Code(s): M21.371 - FOOT DROP, RIGHT FOOT (3) Surgical wound infection Code(s): T81.49XA - INFECTION FOLLOWING A PROCEDURE, OTHER SURGICAL SITE, INIT (4) S/P total knee replacement Code(s): Z96.659 - PRESENCE OF UNSPECIFIED ARTIFICIAL KNEE JOINT Qualifiers: (5) COVID-19 Code(s): U07.1 - COVID POSITIVE (6) Hypertension Code(s): I10 - ESSENTIAL (PRIMARY) HYPERTENSION (7) Inability to ambulate due to knee Code(s): R26.2 - DIFFICULTY IN WALKING, NOT ELSEWHERE CLASSIFIED (8) Yanet-prosthetic fracture around prosthetic knee Code(s): M97.8XXA - PERIPROSTH FRACTURE AROUND OTHER INTERNAL PROSTH JOINT, INIT; Z96.659 - PRESENCE OF UNSPECIFIED ARTIFICIAL KNEE JOINT (9) COPD (chronic obstructive pulmonary disease) Code(s): J44.9 - CHRONIC OBSTRUCTIVE PULMONARY DISEASE, UNSPECIFIED (10) History of revision of total knee arthroplasty Code(s): Z96.659 - PRESENCE OF UNSPECIFIED ARTIFICIAL KNEE JOINT Assessment/Plan 79 y.o. female with PMH of HTN, COPD, Rt pop DVT, COVID, s/p revision of RT TKR and debridements with tibial wound/hardware exposure and possible patellar rupture readmitted for further management Rt tibial wound infection s/p debridement +MRSA /wound vac Rt TKR s/p revisions Possible Rt patellar rupture continue abx ceftriaxone 2g daily complete the course will need it for 4 weeks
--- NOTE | 2019-12-09 14:07 | PN ---
Progress Note (short form) - Note Progress Note: Post Op Day : 5 (Tuesday) Awake alert , c/o swelling and tightness around dressing Afebrile, no chest pain, no cough . OOB chair, with leg elevated Dressing changed with Nurses swelling 4+ Capillary fill <3 sec No calf tenderness, No pus, no induration, no odor, Skin graft over the tendon portion (Achilles) not adherent.Graft in Proximal area pink. Tendon is white color. inplace ALMAZ Drainage minimal Selected Entries 12/09/19 12/09/19 06:00 09:00 Temperature 98.4 F Respiratory 20 Rate Respiratory Normal Depth Blood Pressure 158/79 Blood Pressure 114 Mean Blood Pressure Supine Position Plan : 1. Removal ALMAZ 2.Application of VAC : 125mmhg, Continuous Applied (Done) 3.Possible Discharge to [place] with Out patient HBO to assist wound healing. 4. R Foot drop present . 5. Donor area exposed , dressing soaked (minimally), no odor FU : In wound clinic weekly
[2019-12-09] MEDS: ATORVASTATIN CA 10 MG TABLET (FP) PO SCH (21:39)
[2019-12-09] MEDS: SENNOSIDES 8.6MG TABLET (FP) PO SCH (21:40)
[2019-12-10] MEDS ORDERED: oxyCODONE HCL 5 MG TABLET PO PRN (00:56)
[2019-12-10] MEDS: GABAPENTIN 100 MG CAPSULE PO SCH ×3 (06:35→22:08)
[2019-12-10 08:27] LABS: HEMOGLOBIN 9.5 GM/dL (10.7-15.3); MEAN CELL VOLUME 94.3 fl (80-96); MEAN PLT VOLUME 7.1 fl (7.5-11.1); PLATELET COUNT 383 K/MM3 (134-434); RBC 2.97 M/mm3 (3.60-5.2); RDW 14.7 % (11.6-15.6); WHITE BLOOD COUNT 5.4 K/mm3 (4.0-10.0)
[2019-12-10] MEDS ORDERED: DEXTROSE 5%-WATER 100 ML IVPB ONE (08:51)
[2019-12-10 08:56] LABS: ALBUMIN 1.6 g/dl (3.4-5.0); BLOOD UREA NITROGEN 13.9 mg/dL (7-18); CALCIUM 9.6 mg/dL (8.5-10.1); CREATININE 0.5 mg/dL (0.55-1.3); MAGNESIUM 2.1 mg/dL (1.8-2.4); POTASSIUM 3.9 mmol/L (3.5-5.1)
[2019-12-10 08:58] LABS: BILIRUBIN,TOTAL 0.5 mg/dL (0.2-1); TOT PROT 4.3 g/dl (6.4-8.2)
[2019-12-10] MEDS: CEFTRIAXONE 2 GM in DEXTROSE 5%-WATER 100 ML IVPB SCH (09:09)
[2019-12-10] MEDS: AMINO ACIDS/PROTEIN HYDROLYS 30 ML LIQUID.PKT PO SCH ×2 (09:10→16:51)
[2019-12-10] MEDS: FUROSEMIDE 40 MG/4 ML INJECTABLE VIAL IVPUSH SCH (09:10)
[2019-12-10] MEDS: DOCUSATE SODIUM 100 MG CAPSULE (FP) PO SCH (09:10)
[2019-12-10] MEDS: LACTOBACILLUS ACIDOPHILUS 1 TABLET PO SCH (09:10)
[2019-12-10] MEDS: APIXABAN 5 MG TABLET PO SCH ×2 (09:10→22:09)
[2019-12-10] MEDS: CLOTRIMAZOLE/BETAMET DIPROP 15 GM TUBE TP SCH ×2 (09:11→22:10)
[2019-12-10] MEDS: MINERAL OIL/PET HY-PHL TOPICAL OINTMENT 454 GM JAR TP SCH ×2 (09:11→22:07)
--- NOTE | 2019-12-10 09:33 | PN ---
Progress Note, Physician History of Present Illness: stable having dirrhoea - Current Medication List Current Medications: Active Medications Acetaminophen (Tylenol -) 1,000 mg PO Q6H PRN PRN Reason: PAIN 1-3 Last Admin: 12/09/19 22:27 Dose: 1,000 mg Documented by: Albuterol Sulfate (Ventolin Hfa Inhaler -) 2 puff IH Q4H PRN PRN Reason: SHORT OF BREATH/WHEEZING Amino Acids (Prosource No Carb Liquid Pkt) 30 ml PO BID@0800,1730 [facility] Last Admin: 12/10/19 09:10 Dose: 30 ml Documented by: Apixaban (Eliquis -) 5 mg PO BID [facility] Last Admin: 12/10/19 09:10 Dose: 5 mg Documented by: Atorvastatin Calcium (Lipitor -) 10 mg PO HS [facility] Last Admin: 12/09/19 21:39 Dose: 10 mg Documented by: Clotrimazole (Lotrisone Cream (Small Tube)) 1 applic TP BID [facility] Last Admin: 12/10/19 09:11 Dose: 1 applic Documented by: Docusate Sodium (Colace -) 100 mg PO DAILY [facility] Last Admin: 12/10/19 09:10 Dose: 100 mg Documented by: Emollient Ointment (Aquaphor -) 1 applic TP BID [facility] Last Admin: 12/10/19 09:11 Dose: 1 applic Documented by: Furosemide (Lasix Injection -) 40 mg IVPUSH DAILY [facility] Last Admin: 12/10/19 09:10 Dose: 40 mg Documented by: Gabapentin (Neurontin -) 100 mg PO TID [facility] Last Admin: 12/10/19 06:35 Dose: 100 mg Documented by: Ceftriaxone Sodium 2 gm/ (Dextrose) 100 mls @ 100 mls/hr IVPB DAILY [facility]; Protocol Last Admin: 12/10/19 09:09 Dose: 100 mls/hr Documented by: Lactobacillus Acidophilus (Bacid -) 1 tab PO DAILY [facility] Last Admin: 12/10/19 09:10 Dose: 1 tab Documented by: Melatonin (Melatonin) 3 mg PO HS PRN PRN Reason: INSOMNIA Last Admin: 12/07/19 23:01 Dose: 3 mg Documented by: Ondansetron HCl (Zofran Injection) 4 mg IVPUSH Q6H PRN PRN Reason: NAUSEA Polyethylene Glycol (Miralax (For Daily Use) -) 17 gm PO DAILY PRN PRN Reason: CONSTIPATION Last Admin: 12/08/19 10:01 Dose: 17 grams Documented by: Carlos (Senna -) 1 tab PO HS [facility] Last Admin: 12/09/19 21:40 Dose: 1 tab Documented by: - Objective Vital Signs: Vital Signs Temperature 98.3 F 12/10/19 06:27 Pulse Rate 84 12/10/19 06:27 Respiratory Rate 12/10/19 06:27 Blood Pressure 155/70 12/10/19 06:27 O2 Sat by Pulse Oximetry (%) 94 L 12/09/19 21:00 Constitutional: Yes: No Distress, Calm Cardiovascular: Yes: S1, S2 Respiratory: Yes: Regular, CTA Bilaterally Gastrointestinal: Yes: Normal Bowel Sounds, Soft, Other (dirrhoea) Musculoskeletal: Yes: WNL Extremities: Yes: Other Wound/Incision: Yes: Dressing Dry and Intact Neurological: Yes: Alert, Oriented Psychiatric: Yes: Alert, Oriented Labs: CBC, BMP 12/10/19 06:45 12/10/19 06:45 INR, PTT INR 0.97 (0.83-1.09) 12/04/19 07:10 Assessment/Plan Problem List - Problems (1) History of DVT (deep vein thrombosis) Code(s): Z86.718 - PERSONAL HISTORY OF OTHER VENOUS THROMBOSIS AND EMBOLISM (2) Right foot drop Code(s): M21.371 - FOOT DROP, RIGHT FOOT (3) Surgical wound infection Code(s): T81.49XA - INFECTION FOLLOWING A PROCEDURE, OTHER SURGICAL SITE, INIT (4) S/P total knee replacement Code(s): Z96.659 - PRESENCE OF UNSPECIFIED ARTIFICIAL KNEE JOINT Qualifiers: (5) COVID-19 Code(s): U07.1 - COVID POSITIVE (6) Hypertension Code(s): I10 - ESSENTIAL (PRIMARY) HYPERTENSION (7) Inability to ambulate due to knee Code(s): R26.2 - DIFFICULTY IN WALKING, NOT ELSEWHERE CLASSIFIED (8) Yanet-prosthetic fracture around prosthetic knee Code(s): M97.8XXA - PERIPROSTH FRACTURE AROUND OTHER INTERNAL PROSTH JOINT, INIT; Z96.659 - PRESENCE OF UNSPECIFIED ARTIFICIAL KNEE JOINT (9) COPD (chronic obstructive pulmonary disease) Code(s): J44.9 - CHRONIC OBSTRUCTIVE PULMONARY DISEASE, UNSPECIFIED (10) History of revision of total knee arthroplasty Code(s): Z96.659 - PRESENCE OF UNSPECIFIED ARTIFICIAL KNEE JOINT Assessment/Plan 79 y.o. female with PMH of HTN, COPD, Rt pop DVT, COVID, s/p revision of RT TKR and debridements with tibial wound/hardware exposure and possible patellar rupture readmitted for further management Rt tibial wound infection s/p debridement +MRSA /wound vac Rt TKR s/p revisions Possible Rt patellar rupture continue abx ceftriaxone 2g daily complete the course will need it for 4 weeks if continues to uvaldo martinez--send for cdiff
--- NOTE | 2019-12-10 10:14 | PN ---
Progress Note, Physician Chief Complaint: Right knee wound infection History of Present Illness: Seen by Psychotherapy c/o supra pubic tenderness UC:+ Strep D+ enterococcus As per pt , she was seeing hematology/oncology for Multiple Myeloma? Has seen Dr Lovelace in the past. GI Dr Orozco, last EGD+ Colonoscopy earlier this year at [facility] in - Finished Unasyn NAD, in bed C/o diarrhea received senna + Colace yesterday On Rocephin IV Stage 1 on sacrum Also c/o right posterior thigh burning, couldn't sleep because of pain. s/p combined orthopedic/plastic surgery case :Removal of hardware (polyethylene liner exchange (ortho), bushings, screws, washers). I&D right knee. Revision placement of hardware on 12/04/19; Right medial gastrocnemius muscle flap wound coverage (plastics), stsg for Right knee wound dehiscence, patellar ligament rupture, exposure of hardware on 12/06/19 - Current Medication List Current Medications: Active Medications Acetaminophen (Tylenol -) 1,000 mg PO Q6H PRN PRN Reason: PAIN 1-3 Last Admin: 12/09/19 22:27 Dose: 1,000 mg Documented by: Albuterol Sulfate (Ventolin Hfa Inhaler -) 2 puff IH Q4H PRN PRN Reason: SHORT OF BREATH/WHEEZING Amino Acids (Prosource No Carb Liquid Pkt) 30 ml PO BID@0800,1730 [facility] Last Admin: 12/10/19 09:10 Dose: 30 ml Documented by: Apixaban (Eliquis -) 5 mg PO BID [facility] Last Admin: 12/10/19 09:10 Dose: 5 mg Documented by: Atorvastatin Calcium (Lipitor -) 10 mg PO HS [facility] Last Admin: 12/09/19 21:39 Dose: 10 mg Documented by: Clotrimazole (Lotrisone Cream (Small Tube)) 1 applic TP BID [facility] Last Admin: 12/10/19 09:11 Dose: 1 applic Documented by: Docusate Sodium (Colace -) 100 mg PO DAILY [facility] Last Admin: 12/10/19 09:10 Dose: 100 mg Documented by: Emollient Ointment (Aquaphor -) 1 applic TP BID [facility] Last Admin: 12/10/19 09:11 Dose: 1 applic Documented by: Furosemide (Lasix Injection -) 40 mg IVPUSH DAILY [facility] Last Admin: 12/10/19 09:10 Dose: 40 mg Documented by: Gabapentin (Neurontin -) 100 mg PO TID [facility] Last Admin: 12/10/19 06:35 Dose: 100 mg Documented by: Ceftriaxone Sodium 2 gm/ (Dextrose) 100 mls @ 100 mls/hr IVPB DAILY [facility]; Protocol Last Admin: 12/10/19 09:09 Dose: 100 mls/hr Documented by: Lactobacillus Acidophilus (Bacid -) 1 tab PO DAILY [facility] Last Admin: 12/10/19 09:10 Dose: 1 tab Documented by: Melatonin (Melatonin) 3 mg PO HS PRN PRN Reason: INSOMNIA Last Admin: 12/07/19 23:01 Dose: 3 mg Documented by: Ondansetron HCl (Zofran Injection) 4 mg IVPUSH Q6H PRN PRN Reason: NAUSEA Polyethylene Glycol (Miralax (For Daily Use) -) 17 gm PO DAILY PRN PRN Reason: CONSTIPATION Last Admin: 12/08/19 10:01 Dose: 17 grams Documented by: Senna (Senna -) 1 tab PO HS [facility] Last Admin: 12/09/19 21:40 Dose: 1 tab Documented by: - Objective Vital Signs: Vital Signs Temperature 98.3 F 12/10/19 06:27 Pulse Rate 84 12/10/19 06:27 Respiratory Rate 12/10/19 06:27 Blood Pressure 155/70 12/10/19 06:27 O2 Sat by Pulse Oximetry (%) 94 L 12/09/19 21:00 Constitutional: Yes: Well Nourished, No Distress, Calm Cardiovascular: Yes: Regular Rate and Rhythm Respiratory: Yes: Regular, CTA Bilaterally Gastrointestinal: Yes: Soft, Hyperactive Bowel Sounds Genitourinary: Yes: Incontinence Musculoskeletal: Yes: Muscle Weakness Extremities: Yes: WNL Edema: No Peripheral Pulses WNL: Yes Integumentary: Yes: Pressure Ulcer (Stage 1), Rash (macular rash right posterior thigh) Wound/Incision: Yes: Clean/Dry Neurological: Yes: Alert, Oriented Psychiatric: Yes: Alert, Oriented Labs: CBC, BMP 12/10/19 06:45 12/10/19 06:45 INR, PTT INR 0.97 (0.83-1.09) 12/04/19 07:10 Problem List - Problems (1) Surgical wound infection Assessment/Plan: -Last cultures + MRSA -ID consult appreciated -IV Rocephin -Wound vac-to facilitate granulation tissue, changed by orthopedic surgery --Skin flap with plastic surgery on 12/06/19 Code(s): T81.49XA - INFECTION FOLLOWING A PROCEDURE, OTHER SURGICAL SITE, INIT (2) Right foot drop Assessment/Plan: -Kerlix over the foot for pt to be able to flex and extend her foot 10 x Q1H -Nursing staff educated to stimulate the ankle by flexing and extending it during their visits in patients room. -Offload B/L heels w/rolled towels under ankles to minimize risk of heel ulcer formation. Problems reviewed: Yes Code(s): M21.371 - FOOT DROP, RIGHT FOOT (3) S/P total knee replacement Assessment/Plan: -Seen by orthopedic surgery -WBAT with Right knee immobilizer -Pain management with tylenol 1g Q6H PRN -NO ROM Right knee (due to patellar ligament rupture). -Neurontin 100mg PO BID, increase it to TID- tolerating well -Vac changes +/- bedside debridements q48-72 hours by surgical team only. -DVT ppx -Plan is for skin flap on 12/04/19 in OR with orthopedic and plastic surgery -On Lovenox 70 mg BID. -Cleared by cardiology for surgery -Pt medically stable and cleared for surgery Problems reviewed: Yes Code(s): Z96.659 - PRESENCE OF UNSPECIFIED ARTIFICIAL KNEE JOINT Qualifiers: (4) Hypertension Assessment/Plan: -Low sodium diet Problems reviewed: Yes Code(s): I10 - ESSENTIAL (PRIMARY) HYPERTENSION (5) History of DVT (deep vein thrombosis) Assessment/Plan: -In right popliteal and posterior tibial vein -Restarted on Eliquis Problems reviewed: Yes Code(s): Z86.718 - PERSONAL HISTORY OF OTHER VENOUS THROMBOSIS AND EMBOLISM (6) Constipation Assessment/Plan: -resolved Problems reviewed: Yes Code(s): K59.00 - CONSTIPATION, UNSPECIFIED (7) Hemorrhoids Assessment/Plan: -Resolved Problems reviewed: Yes Code(s): K64.9 - UNSPECIFIED HEMORRHOIDS (8) Nausea & vomiting Assessment/Plan: -Resolved Problems reviewed: Yes Code(s): R11.2 - NAUSEA WITH VOMITING, UNSPECIFIED (9) Suprapubic discomfort Assessment/Plan: -UA reviewed -UC-+ VRE -Completed Unasyn Problems reviewed: Yes Code(s): R10.2 - PELVIC AND PERINEAL PAIN (10) VRE (vancomycin resistant enterococcus) culture positive Assessment/Plan: -Completed Unasyn -ID consult appreciated Problems reviewed: Yes Code(s): Z22.39 - CARRIER OF OTHER SPECIFIED BACTERIAL DISEASES (11) Shingles Assessment/Plan: -Start Valacyclovir 1 g tid Problems reviewed: Yes Code(s): B02.9 - ZOSTER WITHOUT COMPLICATIONS (12) Mild depression Assessment/Plan: -Psychotherapy appreciated -Start sertraline 25 mg po daily Problems reviewed: Yes Code(s): F32.0 - MAJOR DEPRESSIVE DISORDER, SINGLE EPISODE, MILD (13) Diarrhea Assessment/Plan: -D/C senna+ colace -Check for cdiff + Stool Cuture Problems reviewed: Yes Code(s): R19.7 - DIARRHEA, UNSPECIFIED Qualifiers: Diarrhea type: unspecified type Qualified Code(s): R19.7 - Diarrhea, unspecified Assessment/Plan See problem list Spoke to son Masoud about pt update
[2019-12-10] MEDS: valACYclovir HCL 500 MG TABLET (FP) PO SCH ×2 (13:43→22:09)
[2019-12-10] MEDS: SERTRALINE HCL 25 MG TABLET (FP) PO SCH (13:43)
--- NOTE | 2019-12-10 14:55 | PN ---
Progress Note (short form) - Note Progress Note: SUrgery POD # 6 Right gastrocnemius muscle flap, stsg. Patient seen and examined on AM rounds. Patient with no new complaints, had new vac placed by Dr Craft yesterday. Vital Signs Period Temp Pulse Resp BP Sys/Hardy Pulse Ox Last 24 Hr 98.2 F-98.4 F 76-98 20-20 130-155/68-78 94-94 CBC, BMP 12/10/19 06:45 12/10/19 06:45 PE: A&Ox3, NAD Unlabored resp on RA Right LE wound vac in good position and working well. no activation on dorsiflexion-still with foot drop. +2 DP pulses Left LE compartment soft, supple and non-tender +2DP pulses Problem List - Problems (1) Surgical wound infection Assessment/Plan: POD #6 gastroc muscle flap, patient stable. -maintain VAC : 125mmhg, Continuous Applied -Plan fo Discharge to [place] with Out patient HBO to assist wound healing. -maintain bledso brace -Dr Craft to change vac on TuesdayDecember 11 Code(s): T81.49XA - INFECTION FOLLOWING A PROCEDURE, OTHER SURGICAL SITE, INIT
[2019-12-10] MEDS: VANCOMYCIN 250 MG/5 ML ORAL SOLUTION PO SCH (18:23)
[2019-12-10] MEDS: ACETAMINOPHEN 500 MG TABLET (FP) PO PRN (22:08)
[2019-12-10] MEDS: ATORVASTATIN CA 10 MG TABLET (FP) PO SCH (22:09)
[2019-12-11] MEDS ORDERED: PT OWN MED DRAWER 7, Y5N ONE (01:40)
[2019-12-11] MEDS: VANCOMYCIN 250 MG/5 ML ORAL SOLUTION PO SCH ×4 (01:42→17:32)
[2019-12-11] MEDS: GABAPENTIN 100 MG CAPSULE PO SCH (06:14)
[2019-12-11] MEDS: valACYclovir HCL 500 MG TABLET (FP) PO SCH ×3 (06:14→21:59)
[2019-12-11] MEDS ORDERED: DEXTROSE 5%-WATER 100 ML IVPB ONE (10:17)
[2019-12-11] MEDS: APIXABAN 5 MG TABLET PO SCH ×2 (10:41→22:00)
[2019-12-11] MEDS: FUROSEMIDE 40 MG/4 ML INJECTABLE VIAL IVPUSH SCH (10:41)
[2019-12-11] MEDS: AMINO ACIDS/PROTEIN HYDROLYS 30 ML LIQUID.PKT PO SCH ×2 (10:41→17:32)
[2019-12-11] MEDS: CEFTRIAXONE 2 GM in DEXTROSE 5%-WATER 100 ML IVPB SCH (10:41)
[2019-12-11] MEDS: ACETAMINOPHEN 500 MG TABLET (FP) PO PRN ×2 (10:41→21:59)
[2019-12-11] MEDS: LACTOBACILLUS ACIDOPHILUS 1 TABLET PO SCH (10:41)
[2019-12-11] MEDS: SERTRALINE HCL 25 MG TABLET (FP) PO SCH (10:41)
[2019-12-11] MEDS: CLOTRIMAZOLE/BETAMET DIPROP 15 GM TUBE TP SCH ×2 (10:42→22:01)
[2019-12-11] MEDS: MINERAL OIL/PET HY-PHL TOPICAL OINTMENT 454 GM JAR TP SCH ×2 (10:42→22:01)
--- NOTE | 2019-12-11 11:06 | PN ---
Progress Note, Physician Chief Complaint: Right knee wound infection History of Present Illness: Seen by Psychotherapy c/o supra pubic tenderness UC:+ Strep D+ enterococcus As per pt , she was seeing hematology/oncology for Multiple Myeloma? Has seen Dr Lovelace in the past. GI Dr Orozco, last EGD+ Colonoscopy earlier this year at [facility] in - Finished Unasyn NAD, in bed Continues to have diarrhea Cdiff ag + started on PO Vanco On Rocephin IV Stage 1 on sacrum with allevyn Right thigh shingles, healing lesions Started on Valacyclovir s/p combined orthopedic/plastic surgery case :Removal of hardware (polyethylene liner exchange (ortho), bushings, screws, washers). I&D right knee. Revision placement of hardware on 12/04/19; Right medial gastrocnemius muscle flap wound coverage (plastics), stsg for Right knee wound dehiscence, patellar ligament rupture, exposure of hardware on 12/06/19 - Current Medication List Current Medications: Active Medications Acetaminophen (Tylenol -) 1,000 mg PO Q6H PRN PRN Reason: PAIN 1-3 Last Admin: 12/11/19 10:41 Dose: 1,000 mg Documented by: Albuterol Sulfate (Ventolin Hfa Inhaler -) 2 puff IH Q4H PRN PRN Reason: SHORT OF BREATH/WHEEZING Amino Acids (Prosource No Carb Liquid Pkt) 30 ml PO BID@0800,1730 [facility] Last Admin: 12/11/19 10:41 Dose: 30 ml Documented by: Apixaban (Eliquis -) 5 mg PO BID [facility] Last Admin: 12/11/19 10:41 Dose: 5 mg Documented by: Atorvastatin Calcium (Lipitor -) 10 mg PO HS [facility] Last Admin: 12/10/19 22:09 Dose: 10 mg Documented by: Clotrimazole (Lotrisone Cream (Small Tube)) 1 applic TP BID [facility] Last Admin: 12/11/19 10:42 Dose: 1 applic Documented by: Emollient Ointment (Aquaphor -) 1 applic TP BID [facility] Last Admin: 12/11/19 10:42 Dose: 1 applic Documented by: Furosemide (Lasix Injection -) 40 mg IVPUSH DAILY [facility] Last Admin: 12/11/19 10:41 Dose: 40 mg Documented by: Gabapentin (Neurontin -) 200 mg PO TID [facility] Last Admin: 12/11/19 06:14 Dose: 200 mg Documented by: Ceftriaxone Sodium 2 gm/ (Dextrose) 100 mls @ 100 mls/hr IVPB DAILY [facility]; Protocol Last Admin: 12/11/19 10:41 Dose: 100 mls/hr Documented by: Lactobacillus Acidophilus (Bacid -) 1 tab PO DAILY [facility] Last Admin: 12/11/19 10:41 Dose: 1 tab Documented by: Melatonin (Melatonin) 3 mg PO HS PRN PRN Reason: INSOMNIA Last Admin: 12/07/19 23:01 Dose: 3 mg Documented by: Ondansetron HCl (Zofran Injection) 4 mg IVPUSH Q6H PRN PRN Reason: NAUSEA Polyethylene Glycol (Miralax (For Daily Use) -) 17 gm PO DAILY PRN PRN Reason: CONSTIPATION Last Admin: 12/08/19 10:01 Dose: 17 grams Documented by: Sertraline HCl (Zoloft -) 25 mg PO DAILY [facility] Last Admin: 12/11/19 10:41 Dose: 25 mg Documented by: Valacyclovir HCl (Valtrex -) 1,000 mg PO TID [facility] Last Admin: 12/11/19 06:14 Dose: 1,000 mg Documented by: Vancomycin HCl (Vancomycin Oral Solution) 125 mg PO Q6HPO [facility] Last Admin: 12/11/19 06:14 Dose: 125 mg Documented by: - Objective Vital Signs: Vital Signs Temperature 98.1 F 12/11/19 07:34 Pulse Rate 82 12/11/19 07:34 Respiratory Rate 20 12/11/19 07:34 Blood Pressure 140/72 12/11/19 07:34 O2 Sat by Pulse Oximetry (%) 95 12/10/19 21:00 Constitutional: Yes: Well Nourished, No Distress, Calm Cardiovascular: Yes: Regular Rate and Rhythm Respiratory: Yes: Regular, CTA Bilaterally Gastrointestinal: Yes: Soft, Hyperactive Bowel Sounds Genitourinary: Yes: Incontinence Musculoskeletal: Yes: Muscle Weakness Edema: No Peripheral Pulses WNL: Yes Wound/Incision: Yes: Dressing Dry and Intact (Right knee wound vac) Neurological: Yes: Alert, Oriented Psychiatric: Yes: Alert, Oriented Labs: CBC, BMP 12/10/19 06:45 12/10/19 06:45 INR, PTT INR 0.97 (0.83-1.09) 12/04/19 07:10 Problem List - Problems (1) Surgical wound infection Assessment/Plan: -Last cultures + MRSA -ID consult appreciated -IV Rocephin -Wound vac-to facilitate granulation tissue, changed by plastic surgery -Skin flap with plastic surgery on 12/06/19 Problems reviewed: Yes Code(s): T81.49XA - INFECTION FOLLOWING A PROCEDURE, OTHER SURGICAL SITE, INIT (2) Right foot drop Assessment/Plan: -Kerlix over the foot for pt to be able to flex and extend her foot 10 x Q1H -Nursing staff educated to stimulate the ankle by flexing and extending it during their visits in patients room. -Offload B/L heels w/rolled towels under ankles to minimize risk of heel ulcer formation. Problems reviewed: Yes Code(s): M21.371 - FOOT DROP, RIGHT FOOT (3) S/P total knee replacement Assessment/Plan: -Seen by orthopedic surgery -Right knee immobilizer -Pain management with tylenol 1g Q6H PRN -NO ROM Right knee (due to patellar ligament rupture). -Increased Neurontin to 300 mg po tid -Vac changes +/- bedside debridements q48-72 hours by plastics team only. -DVT ppx Problems reviewed: Yes Code(s): Z96.659 - PRESENCE OF UNSPECIFIED ARTIFICIAL KNEE JOINT Qualifiers: (4) History of DVT (deep vein thrombosis) Assessment/Plan: -In right popliteal and posterior tibial vein -Eliquis Problems reviewed: Yes Code(s): Z86.718 - PERSONAL HISTORY OF OTHER VENOUS THROMBOSIS AND EMBOLISM (5) Suprapubic discomfort Assessment/Plan: -UA reviewed -UC-+ VRE -Completed Unasyn Code(s): R10.2 - PELVIC AND PERINEAL PAIN (6) VRE (vancomycin resistant enterococcus) culture positive Assessment/Plan: -Completed Unasyn -ID consult appreciated Problems reviewed: Yes Code(s): Z22.39 - CARRIER OF OTHER SPECIFIED BACTERIAL DISEASES (7) Shingles Assessment/Plan: -Valacyclovir 1 g tid x 7 days Problems reviewed: Yes Code(s): B02.9 - ZOSTER WITHOUT COMPLICATIONS (8) Mild depression Assessment/Plan: -Psychotherapy appreciated -Sertraline 25 mg po daily Problems reviewed: Yes Code(s): F32.0 - MAJOR DEPRESSIVE DISORDER, SINGLE EPISODE, MILD (9) Diarrhea Assessment/Plan: -cdiff ag + -Stool Culture pending Problems reviewed: Yes Code(s): R19.7 - DIARRHEA, UNSPECIFIED Qualifiers: Diarrhea type: unspecified type Qualified Code(s): R19.7 - Diarrhea, unspecified Assessment/Plan See problem list
--- NOTE | 2019-12-11 12:17 | SURG ---
Surgery Hose Cementer Note Hose Cementer: Manjula Peguero PA-C (Suzy) Date of Service: 12/11/19 Diagnosis: Right knee wound dehiscence, exposure of hardware Procedure: Operation: Right gastrocnemius muscle flap, stsg I was present for the entirety of the operative procedure. For further detail, please refer to operative report. Visit type - Case Type Case Type: Scheduled - Emergency Emergency Visit: No - New patient This patient is new to me today: No - Critical Care Critical Care patient: No
--- NOTE | 2019-12-11 12:49 | PN ---
Progress Note, Physician History of Present Illness: stable no new issues rash on the buttock - Current Medication List Current Medications: Active Medications Acetaminophen (Tylenol -) 1,000 mg PO Q6H PRN PRN Reason: PAIN 1-3 Last Admin: 12/11/19 10:41 Dose: 1,000 mg Documented by: Albuterol Sulfate (Ventolin Hfa Inhaler -) 2 puff IH Q4H PRN PRN Reason: SHORT OF BREATH/WHEEZING Amino Acids (Prosource No Carb Liquid Pkt) 30 ml PO BID@0800,1730 [facility] Last Admin: 12/11/19 10:41 Dose: 30 ml Documented by: Apixaban (Eliquis -) 5 mg PO BID [facility] Last Admin: 12/11/19 10:41 Dose: 5 mg Documented by: Atorvastatin Calcium (Lipitor -) 10 mg PO HS [facility] Last Admin: 12/10/19 22:09 Dose: 10 mg Documented by: Clotrimazole (Lotrisone Cream (Small Tube)) 1 applic TP BID [facility] Last Admin: 12/11/19 10:42 Dose: 1 applic Documented by: Emollient Ointment (Aquaphor -) 1 applic TP BID [facility] Last Admin: 12/11/19 10:42 Dose: 1 applic Documented by: Furosemide (Lasix Injection -) 40 mg IVPUSH DAILY [facility] Last Admin: 12/11/19 10:41 Dose: 40 mg Documented by: Gabapentin (Neurontin -) 300 mg PO TID [facility] Ceftriaxone Sodium 2 gm/ (Dextrose) 100 mls @ 100 mls/hr IVPB DAILY [facility]; Protocol Last Admin: 12/11/19 10:41 Dose: 100 mls/hr Documented by: Lactobacillus Acidophilus (Bacid -) 1 tab PO DAILY [facility] Last Admin: 12/11/19 10:41 Dose: 1 tab Documented by: Melatonin (Melatonin) 3 mg PO HS PRN PRN Reason: INSOMNIA Last Admin: 12/07/19 23:01 Dose: 3 mg Documented by: Ondansetron HCl (Zofran Injection) 4 mg IVPUSH Q6H PRN PRN Reason: NAUSEA Polyethylene Glycol (Miralax (For Daily Use) -) 17 gm PO DAILY PRN PRN Reason: CONSTIPATION Last Admin: 12/08/19 10:01 Dose: 17 grams Documented by: Sertraline HCl (Zoloft -) 25 mg PO DAILY [facility] Last Admin: 12/11/19 10:41 Dose: 25 mg Documented by: Valacyclovir HCl (Valtrex -) 1,000 mg PO TID [facility] Last Admin: 12/11/19 06:14 Dose: 1,000 mg Documented by: Vancomycin HCl (Vancomycin Oral Solution) 125 mg PO Q6HPO [facility] Last Admin: 12/11/19 11:30 Dose: 125 mg Documented by: - Objective Vital Signs: Vital Signs Temperature 98.1 F 12/11/19 07:34 Pulse Rate 82 12/11/19 07:34 Respiratory Rate 20 12/11/19 07:34 Blood Pressure 140/72 12/11/19 07:34 O2 Sat by Pulse Oximetry (%) 95 12/10/19 21:00 Constitutional: Yes: Calm, Mild Distress Eyes: Yes: Conjunctiva Clear Cardiovascular: Yes: S1, S2 Respiratory: Yes: Regular, CTA Bilaterally Musculoskeletal: Yes: WNL Extremities: Yes: Other Wound/Incision: Yes: Dressing Dry and Intact Neurological: Yes: Alert, Oriented Psychiatric: Yes: Alert, Oriented Labs: CBC, BMP 12/10/19 06:45 12/10/19 06:45 INR, PTT INR 0.97 (0.83-1.09) 12/04/19 07:10 Assessment/Plan Problem List - Problems (1) History of DVT (deep vein thrombosis) Code(s): Z86.718 - PERSONAL HISTORY OF OTHER VENOUS THROMBOSIS AND EMBOLISM (2) Right foot drop Code(s): M21.371 - FOOT DROP, RIGHT FOOT (3) Surgical wound infection Code(s): T81.49XA - INFECTION FOLLOWING A PROCEDURE, OTHER SURGICAL SITE, INIT (4) S/P total knee replacement Code(s): Z96.659 - PRESENCE OF UNSPECIFIED ARTIFICIAL KNEE JOINT Qualifiers: (5) COVID-19 Code(s): U07.1 - COVID POSITIVE (6) Hypertension Code(s): I10 - ESSENTIAL (PRIMARY) HYPERTENSION (7) Inability to ambulate due to knee Code(s): R26.2 - DIFFICULTY IN WALKING, NOT ELSEWHERE CLASSIFIED (8) Yanet-prosthetic fracture around prosthetic knee Code(s): M97.8XXA - PERIPROSTH FRACTURE AROUND OTHER INTERNAL PROSTH JOINT, INIT; Z96.659 - PRESENCE OF UNSPECIFIED ARTIFICIAL KNEE JOINT (9) COPD (chronic obstructive pulmonary disease) Code(s): J44.9 - CHRONIC OBSTRUCTIVE PULMONARY DISEASE, UNSPECIFIED (10) History of revision of total knee arthroplasty Code(s): Z96.659 - PRESENCE OF UNSPECIFIED ARTIFICIAL KNEE JOINT Assessment/Plan 79 y.o. female with PMH of HTN, COPD, Rt pop DVT, COVID, s/p revision of RT TKR and debridements with tibial wound/hardware exposure and possible patellar rupture readmitted for further management Rt tibial wound infection s/p debridement +MRSA /wound vac Rt TKR s/p revisions Possible Rt patellar rupture shingles continue abx ceftriaxone 2g daily complete the course complete the abx course complete valtrex course
--- NOTE | 2019-12-11 12:52 | OP ---
DATE OF OPERATION: 12/04/2019 INDICATION: Reconstructive surgery for right knee. After the first procedure had been completed by Dr. Pardo and Dr. Byrnes , the second part with complaint of by Dr. Saba See. HEALTH PROMOTION OFFICER: JOANN Newton PROCEDURE: Drapes from the previous procedure were completely removed. Leg was again cleaned with Betadine solution and then draped in a standard aseptic manner. Markings were made on the medial aspect of right leg, extending from the tibial plateau to the medial ankle. Straight incision was made over the tibial bone. Dissection was carried out through skin and subcutaneous tissue. Gastrocnemius muscle was located. It was then traced down to the distal-most part of the tendo Achilles, from where it was elevated proximally. There was significant bleeding noted which had to be controlled. After the muscle was from the lateral gastrocnemius and including the soleus, it was then rotated medially to cover the prosthesis as well as the knee joint. The tendo Achilles part was applied to the most proximal part of the wound from 3 o'clock to 9 o'clock position. This was then sutured using 2-0 undyed Vicryl sutures. Next, the drain was placed into the posterior cuff and was brought out through a separate stab incision. Wound was well irrigated. Skin and muscle were then reapplied into their position, and a multilayer closure was undertaken with 3-0 Vicryl undyed, followed by approximation of skin with yvrose. At the end of the procedure, prior to completion of split-thickness skin graft of 0.1 of an inch was taken from the medial aspect of the right thigh. This was then applied onto the open wound over the tendo Achilles and surgically fixated using yvrose. Dressing consisting of Xeroform, 4 x 4's, and Kerlix followed by Coban compression was applied. At the end of the procedure, circulation to the toes was satisfactory. Capillary refill was less than 3 seconds. A splint was then applied after the surgery was completed. Patient was then sent to recovery room in a stable condition. MIGUEL SEE M.D. [id number]
--- NOTE | 2019-12-11 13:34 | CONSULT ---
Admitting History and Physical - Admission History of Present Illness: 79 y.o. female with PMH of HTN, COPD, Rt pop DVT, COVID, s/p revision of RT TKR and debridements with tibial wound/hardware exposure and possible patellar rupture readmitted for further management. Cultures +MRSA 12/03-Right gastrocnemius muscle flap, stsg Pt reports onset of Dysphagia 3 days ago, with effortful swallow that started after pill stuck in her throat. Pt was on a chopped diet and thin liquids at [facility], and received a chopped (She sa id pureed diet) upon admission here, but she could not tell me why. She is now on a reg diet but it having difficulty. It is documented that she ate 75% yesterday? Selected Entries 12/07/19 12/07/19 12/08/19 13:50 18:57 14:00 Breakfast 25% 25% Diet Tolerated Fair Poor Fair Lunch 75% 25% Supper 25% Temperature Pulse Rate Blood Pressure 12/09/19 12/09/19 12/10/19 14:00 20:23 00:00 Breakfast 25% Diet Tolerated Fair Fair Lunch 25% Supper 75% Temperature 98.2 F Pulse Rate 90 Blood Pressure 140/69 12/10/19 12/10/19 12/10/19 06:27 14:00 14:54 Breakfast 75% Diet Tolerated Well Lunch 75% Supper Temperature 98.3 F 98.4 F Pulse Rate 84 98 H Blood Pressure 155/70 132/68 12/10/19 12/10/19 12/11/19 17:00 23:00 07:34 Breakfast Diet Tolerated Well Lunch Supper 75% Temperature 98.5 F 99.0 F 98.1 F Pulse Rate 102 H 67 82 Blood Pressure 134/68 149/79 140/72 Laboratory Tests 11/12/19 12/01/19 12/10/19 14:44 05:30 06:45 WBC 5.4 COVID-19 (HANNY) Not detected Not detected She is cognitively intact and seems to be a good historian. She reports having and EGD/Colonoscopy right before admitted to [facility]. History Source: Patient Limitations to Obtaining History: No Limitations - Past Medical History Cardiovascular: Yes: Deep Vein Thrombosis, HTN Pulmonary: Yes: COPD ...: No Infectious Disease: Yes: Other (COVID) - Past Surgical History Past Surgical History: Yes: Joint Replacement - Smoking History Smoking history: Never smoked Have you smoked in the past 12 months: No - Alcohol/Substance Use Hx Alcohol Use: Yes (Socially) History - Admission Reason For Visit: POST OP WOUND INFECTION STATUS POST TOTAL KNEE REP - General Mental Status: Alert and Oriented, Awake and Alert, Able to Follow Commands Attention: Intact Ability to Follow Directions: Excellent Head/Neck Control: WFL - Hearing Hearing: Normal Hearing Aide: No With Patient: No Speech Evaluation - Communication Primary Language: TRINIDADIAN Communication: Yes: Within Normal Limits Oral Expression Ability: Yes: No Impairment - Speech Production Able to Make Needs Known: Yes: WNL Intelligibility: Yes: WNL - Speech Characteristics Voice Loudness: Normal Voice Pitch: Yes: Normal Voice Phonatory-based Quality: Yes: Normal Speech Pattern: Normal Speech Clarity: < 100% Nasal Resonance: Normal Articulation: Yes: Precise Rate of Speech: Intact - Language/Auditory Comprehension Follows: Yes: 2 Stage Simple Commands Observation: Able to respond to yes/no queries: Yes, Yes/No Confusion: No, Comprehends Conversational Speech: Yes - Language/Verbal Expression Able to Respond to Simple Queries: Yes: WNL Able to Communicate Wants and Needs: Yes: WNL Functional Communication Status: Yes: WNL - Memory/Perception terminal system operator Memory: Yes: WNL Short Term Memory: Yes: WNL - Swallow Evaluation/Bedside Assessment Current Nutritional Intake: Regular, Thin Liquids Oral Secretions: Yes: WFL Dentition: Yes: Adequate Facial Symmetry at Rest: Symmetrical Facial Symmetry on Retraction: Symmetrical Facial Movement: Controlled Sensation: Normal Against Resistance Opening: Normal Against Resistance Closing: Normal Pucker Lips: Normal Smile: Normal Lingual Movement: Normal, Symmetric Lingual Speed of Movement: Normal Lingual Movement Strgth Against Opposition: Normal Lingual Movement Characteristics: Normal Velopharyngeal Movement: Normal Laryngeal Elevation: WFL Laryngeal Movement: Able to Palpate Rate of Intake: WFL Bolus Size: WFL Labial Seal: WFL Chewing: WFL Oral Prep Time: WFL A-P Transit: WFL Pocketing: None Timing of Swallow: Delayed Odynophagia: Pharyngeal Coughing/Throat Clear: No Change in Voice: No Recommendations - Speech Evaluation, Impression/Plan Impression: Voice is euphonic. Swallow onset is quite labored and requires a lot of effort to achieve laryngeal elevation with all trials, even water. I suspect impaired anterior,superior swallow function, with possibly impaired relaxation of ues and pharyngeal pooling. Etiology is unclear, possibly related to recent intubation during surgery. Voice however is euphonic. No evidence of thrush. - Dysphagia Impressions/Plan Swallowing Skills: Impaired Dysphagia Impressions: Moderate Impairment, Risk of Aspiration Recommendations: Modified Barium Swallow - Recommendations Diet Consistency: Dysphagia Pureed Medication Administration: Crushed with applesauce (finely crushed) Liquids: Thin Liquids Supplement: Ensure
[2019-12-11] MEDS: GABAPENTIN 300 MG CAPSULE PO SCH ×2 (15:32→22:04)
--- NOTE | 2019-12-11 16:44 | PN ---
Progress Note (short form) - Note Progress Note: We conducted a body scan based on Mindfulness Based Stress Reduction. Her R-knee had a pain level of 4. After the body scan and relaxation exercise, the patient stated that she suddenly experienced a couple of episodes of sharp pain radiating up her right leg. We cut this session short and asked the patient to ring her nurse. We will hold the next session on TuesdayDecember 17. Problem List - Problems (1) Mild depression Code(s): F32.0 - MAJOR DEPRESSIVE DISORDER, SINGLE EPISODE, MILD (2) Anxiety about health Code(s): F41.8 - OTHER SPECIFIED ANXIETY DISORDERS
[2019-12-11] MEDS: ATORVASTATIN CA 10 MG TABLET (FP) PO SCH (22:00)
[2019-12-12] MEDS: VANCOMYCIN 250 MG/5 ML ORAL SOLUTION PO SCH ×5 (00:09→23:07)
[2019-12-12] MEDS: valACYclovir HCL 500 MG TABLET (FP) PO SCH ×3 (08:28→22:41)
[2019-12-12] MEDS: GABAPENTIN 300 MG CAPSULE PO SCH ×3 (08:28→22:35)
[2019-12-12] MEDS: AMINO ACIDS/PROTEIN HYDROLYS 30 ML LIQUID.PKT PO SCH ×2 (08:47→17:21)
--- NOTE | 2019-12-12 09:44 | PN ---
Progress Note, Physician Chief Complaint: Right knee wound infection History of Present Illness: NAD, sitting in chair, nausea resolved On Wound vac Right foot drop- is doing ROM exercises Seen by Orthopedic surgery, wound dressing changed with + formation of granulation tissue On IV Vanco Seen by Psychotherapy c/o supra pubic tenderness UC:+ Strep D+ enterococcus As per pt , she was seeing hematology/oncology for Multiple Myeloma? Has seen Dr Lovelace in the past. GI Dr Orozco, last EGD+ Colonoscopy earlier this year at [facility] in - on Augmentin day 4 s/p right knee I&D, removal of hardware, polyethylene liner exchange (orthopaedics) and medial gastrocnemius flap wound coverage (plastics) Denies any burning in the right posterior thigh now Continues to have diarrhea Appetite reduced Seen by Speech pathology, swallow was labored, recommended MBS - Current Medication List Current Medications: Active Medications Acetaminophen (Tylenol -) 1,000 mg PO Q6H PRN PRN Reason: PAIN 1-3 Last Admin: 12/11/19 21:59 Dose: 1,000 mg Documented by: Albuterol Sulfate (Ventolin Hfa Inhaler -) 2 puff IH Q4H PRN PRN Reason: SHORT OF BREATH/WHEEZING Amino Acids (Prosource No Carb Liquid Pkt) 30 ml PO BID@0800,1730 [facility] Last Admin: 12/12/19 08:47 Dose: 30 ml Documented by: Apixaban (Eliquis -) 5 mg PO BID [facility] Last Admin: 12/11/19 22:00 Dose: 5 mg Documented by: Atorvastatin Calcium (Lipitor -) 10 mg PO HS [facility] Last Admin: 12/11/19 22:00 Dose: 10 mg Documented by: Clotrimazole (Lotrisone Cream (Small Tube)) 1 applic TP BID [facility] Last Admin: 12/11/19 22:01 Dose: 1 applic Documented by: Emollient Ointment (Aquaphor -) 1 applic TP BID [facility] Last Admin: 12/11/19 22:01 Dose: 1 applic Documented by: Furosemide (Lasix Injection -) 40 mg IVPUSH DAILY [facility] Last Admin: 12/11/19 10:41 Dose: 40 mg Documented by: Gabapentin (Neurontin -) 300 mg PO TID [facility] Last Admin: 12/12/19 08:28 Dose: 300 mg Documented by: Ceftriaxone Sodium 2 gm/ (Dextrose) 100 mls @ 100 mls/hr IVPB DAILY [facility]; Protocol Last Admin: 12/11/19 10:41 Dose: 100 mls/hr Documented by: Lactobacillus Acidophilus (Bacid -) 1 tab PO DAILY [facility] Last Admin: 12/11/19 10:41 Dose: 1 tab Documented by: Melatonin (Melatonin) 3 mg PO HS PRN PRN Reason: INSOMNIA Last Admin: 12/07/19 23:01 Dose: 3 mg Documented by: Ondansetron HCl (Zofran Injection) 4 mg IVPUSH Q6H PRN PRN Reason: NAUSEA Polyethylene Glycol (Miralax (For Daily Use) -) 17 gm PO DAILY PRN PRN Reason: CONSTIPATION Last Admin: 12/08/19 10:01 Dose: 17 grams Documented by: Sertraline HCl (Zoloft -) 25 mg PO DAILY [facility] Last Admin: 12/11/19 10:41 Dose: 25 mg Documented by: Valacyclovir HCl (Valtrex -) 1,000 mg PO TID [facility] Last Admin: 12/12/19 08:28 Dose: 1,000 mg Documented by: Vancomycin HCl (Vancomycin Oral Solution) 125 mg PO Q6HPO [facility] Last Admin: 12/12/19 08:28 Dose: 125 mg Documented by: - Objective Vital Signs: Vital Signs Temperature 98.7 F 12/11/19 23:00 Pulse Rate 97 H 12/11/19 23:00 Respiratory Rate 20 12/11/19 23:00 Blood Pressure 147/69 12/11/19 23:00 O2 Sat by Pulse Oximetry (%) 95 12/10/19 21:00 Constitutional: Yes: Well Nourished, No Distress, Calm Cardiovascular: Yes: Regular Rate and Rhythm Respiratory: Yes: Regular, CTA Bilaterally Gastrointestinal: Yes: Soft, Hyperactive Bowel Sounds Genitourinary: Yes: Incontinence Musculoskeletal: Yes: Muscle Weakness Extremities: Yes: Other (right knee immobilizer) Edema: No Peripheral Pulses WNL: Yes Wound/Incision: Yes: Dressing Dry and Intact (right knee wound vac) Neurological: Yes: Alert, Oriented Psychiatric: Yes: Alert, Oriented Labs: CBC, BMP 12/10/19 06:45 12/10/19 06:45 INR, PTT INR 0.97 (0.83-1.09) 12/04/19 07:10 Problem List - Problems (1) Right foot drop Assessment/Plan: -Kerlix over the foot for pt to be able to flex and extend her foot 10 x Q1H -Nursing staff educated to stimulate the ankle by flexing and extending it during their visits in patients room. -Offload B/L heels w/rolled towels under ankles to minimize risk of heel ulcer formation. Problems reviewed: Yes Code(s): M21.371 - FOOT DROP, RIGHT FOOT (2) Surgical wound infection Assessment/Plan: -Last cultures + MRSA -ID consult appreciated -IV Rocephin -Wound vac-to facilitate granulation tissue, changed by plastic surgery -Skin flap with plastic surgery on 12/06/19 Problems reviewed: Yes Code(s): T81.49XA - INFECTION FOLLOWING A PROCEDURE, OTHER SURGICAL SITE, INIT (3) S/P total knee replacement Assessment/Plan: -Seen by orthopedic surgery -Right knee immobilizer -Pain management with tylenol 1g Q6H PRN -NO ROM Right knee (due to patellar ligament rupture). -Increased Neurontin to 300 mg po tid -Vac changes +/- bedside debridements q48-72 hours by plastics team only. -DVT ppx Problems reviewed: Yes Code(s): Z96.659 - PRESENCE OF UNSPECIFIED ARTIFICIAL KNEE JOINT Qualifiers: (4) History of DVT (deep vein thrombosis) Assessment/Plan: -In right popliteal and posterior tibial vein -Eliquis Problems reviewed: Yes Code(s): Z86.718 - PERSONAL HISTORY OF OTHER VENOUS THROMBOSIS AND EMBOLISM (5) VRE (vancomycin resistant enterococcus) culture positive Assessment/Plan: -Completed Unasyn -ID consult appreciated Problems reviewed: Yes Code(s): Z22.39 - CARRIER OF OTHER SPECIFIED BACTERIAL DISEASES Assessment/Plan See problem list Spoke to son who wants his mother to go to either of the following closer to him: 1. [facility] 2. [facility] Repeat COVID 19 PCR in preparation of dc to SNF Pt will need HBO outpatient to promote wound healing.
[2019-12-12] MEDS ORDERED: DEXTROSE 5%-WATER 100 ML IVPB ONE (09:48)
[2019-12-12] MEDS: CEFTRIAXONE 2 GM in DEXTROSE 5%-WATER 100 ML IVPB SCH (09:55)
[2019-12-12] MEDS: CLOTRIMAZOLE/BETAMET DIPROP 15 GM TUBE TP SCH ×2 (09:56→22:36)
[2019-12-12] MEDS: FUROSEMIDE 40 MG/4 ML INJECTABLE VIAL IVPUSH SCH (09:56)
[2019-12-12] MEDS: MINERAL OIL/PET HY-PHL TOPICAL OINTMENT 454 GM JAR TP SCH ×2 (09:56→22:35)
[2019-12-12] MEDS: APIXABAN 5 MG TABLET PO SCH ×2 (09:56→22:34)
[2019-12-12] MEDS: LACTOBACILLUS ACIDOPHILUS 1 TABLET PO SCH (09:56)
[2019-12-12] MEDS: SERTRALINE HCL 25 MG TABLET (FP) PO SCH (09:56)
--- NOTE | 2019-12-12 10:49 | PN ---
Progress Note, DISTRIBUTION ENGINEER - Note Progress Note: Selected Entries 12/11/19 12/11/19 12/12/19 15:00 18:30 08:00 Breakfast 50% Diet Tolerated Well Fair Lunch 50% Supper 25% Pulse Rate 104 H Blood Pressure 124/58 L Laboratory Tests 12/10/19 06:45 WBC 5.4 MBS was surprisingly much better than bedside evaluation. Pt reported improved swallowing function as well. Reg, chopped diet, thin liquids recommended. Puree ordered today.
--- NOTE | 2019-12-12 11:39 | PN ---
Progress Note, Physician History of Present Illness: stable no new issues rash on the buttock - Current Medication List Current Medications: Active Medications Acetaminophen (Tylenol -) 1,000 mg PO Q6H PRN PRN Reason: PAIN 1-3 Last Admin: 12/11/19 21:59 Dose: 1,000 mg Documented by: Albuterol Sulfate (Ventolin Hfa Inhaler -) 2 puff IH Q4H PRN PRN Reason: SHORT OF BREATH/WHEEZING Amino Acids (Prosource No Carb Liquid Pkt) 30 ml PO BID@0800,1730 [facility] Last Admin: 12/12/19 08:47 Dose: 30 ml Documented by: Apixaban (Eliquis -) 5 mg PO BID [facility] Last Admin: 12/12/19 09:56 Dose: 5 mg Documented by: Atorvastatin Calcium (Lipitor -) 10 mg PO HS [facility] Last Admin: 12/11/19 22:00 Dose: 10 mg Documented by: Clotrimazole (Lotrisone Cream (Small Tube)) 1 applic TP BID [facility] Last Admin: 12/12/19 09:56 Dose: 1 applic Documented by: Emollient Ointment (Aquaphor -) 1 applic TP BID [facility] Last Admin: 12/12/19 09:56 Dose: 1 applic Documented by: Furosemide (Lasix Injection -) 40 mg IVPUSH DAILY [facility] Last Admin: 12/12/19 09:56 Dose: 40 mg Documented by: Gabapentin (Neurontin -) 300 mg PO TID [facility] Last Admin: 12/12/19 08:28 Dose: 300 mg Documented by: Ceftriaxone Sodium 2 gm/ (Dextrose) 100 mls @ 100 mls/hr IVPB DAILY [facility]; Protocol Last Admin: 12/12/19 09:55 Dose: 100 mls/hr Documented by: Lactobacillus Acidophilus (Bacid -) 1 tab PO DAILY [facility] Last Admin: 12/12/19 09:56 Dose: 1 tab Documented by: Melatonin (Melatonin) 3 mg PO HS PRN PRN Reason: INSOMNIA Last Admin: 12/07/19 23:01 Dose: 3 mg Documented by: Ondansetron HCl (Zofran Injection) 4 mg IVPUSH Q6H PRN PRN Reason: NAUSEA Polyethylene Glycol (Miralax (For Daily Use) -) 17 gm PO DAILY PRN PRN Reason: CONSTIPATION Last Admin: 12/08/19 10:01 Dose: 17 grams Documented by: Sertraline HCl (Zoloft -) 25 mg PO DAILY [facility] Last Admin: 12/12/19 09:56 Dose: 25 mg Documented by: Valacyclovir HCl (Valtrex -) 1,000 mg PO TID [facility] Last Admin: 12/12/19 08:28 Dose: 1,000 mg Documented by: Vancomycin HCl (Vancomycin Oral Solution) 125 mg PO Q6HPO [facility] Last Admin: 12/12/19 08:28 Dose: 125 mg Documented by: - Objective Vital Signs: Vital Signs Temperature 98 F 12/12/19 08:00 Pulse Rate 104 H 12/12/19 08:00 Respiratory Rate 18 12/12/19 09:00 Blood Pressure 124/58 L 12/12/19 08:00 O2 Sat by Pulse Oximetry (%) 96 12/12/19 09:00 Constitutional: Yes: No Distress, Calm Cardiovascular: Yes: S1, S2 Respiratory: Yes: Regular, CTA Bilaterally Gastrointestinal: Yes: Normal Bowel Sounds, Soft Musculoskeletal: Yes: WNL Extremities: Yes: Other Integumentary: Yes: Other Wound/Incision: Yes: Dressing Dry and Intact Neurological: Yes: Alert, Oriented Psychiatric: Yes: Alert, Oriented Labs: CBC, BMP 12/10/19 06:45 12/10/19 06:45 INR, PTT INR 0.97 (0.83-1.09) 12/04/19 07:10 Assessment/Plan Problem List - Problems (1) History of DVT (deep vein thrombosis) Code(s): Z86.718 - PERSONAL HISTORY OF OTHER VENOUS THROMBOSIS AND EMBOLISM (2) Right foot drop Code(s): M21.371 - FOOT DROP, RIGHT FOOT (3) Surgical wound infection Code(s): T81.49XA - INFECTION FOLLOWING A PROCEDURE, OTHER SURGICAL SITE, INIT (4) S/P total knee replacement Code(s): Z96.659 - PRESENCE OF UNSPECIFIED ARTIFICIAL KNEE JOINT Qualifiers: (5) COVID-19 Code(s): U07.1 - COVID POSITIVE (6) Hypertension Code(s): I10 - ESSENTIAL (PRIMARY) HYPERTENSION (7) Inability to ambulate due to knee Code(s): R26.2 - DIFFICULTY IN WALKING, NOT ELSEWHERE CLASSIFIED (8) Yanet-prosthetic fracture around prosthetic knee Code(s): M97.8XXA - PERIPROSTH FRACTURE AROUND OTHER INTERNAL PROSTH JOINT, INIT; Z96.659 - PRESENCE OF UNSPECIFIED ARTIFICIAL KNEE JOINT (9) COPD (chronic obstructive pulmonary disease) Code(s): J44.9 - CHRONIC OBSTRUCTIVE PULMONARY DISEASE, UNSPECIFIED (10) History of revision of total knee arthroplasty Code(s): Z96.659 - PRESENCE OF UNSPECIFIED ARTIFICIAL KNEE JOINT Assessment/Plan 79 y.o. female with PMH of HTN, COPD, Rt pop DVT, COVID, s/p revision of RT TKR and debridements with tibial wound/hardware exposure and possible patellar rupture readmitted for further management Rt tibial wound infection s/p debridement +MRSA /wound vac Rt TKR s/p revisions Possible Rt patellar rupture shingles continue abx ceftriaxone 2g daily complete the course complete the abx course complete valtrex course
--- NOTE | 2019-12-12 14:44 | PROC ---
VAC Application - Indications Surgical A decision was made to utilize Negative Pressure VAC Therapy to assist in neovascularization to wound bed to provide oxygen rich blood to help graft take. Aid in wound closure through promotion of granulation tissue formation. - Wound description Wound location: Other (Right knee) Length (cm): 10 Width (cm): 5.5 Wound area (sq cm): 55.00 - Device VAC Selection: NPT (s/p medial gastrocnemius rotational flap & STSG on 12/04/2019) - Procedure Area cleansed. Prepped/draped. Black foam tailored to fit just inside of wound borders to encourage wound contracture. An occlusive dressing applied. Suction disc placed in location so as not to be uncomfortable for the patient or cause any pressure point (foam bridge to hip as necessary). Good seal as verified by complete foam collapse and no leak on unit monitor. Pressure set to 125 mmHg, continuous. If using Veraflo: Settings: Soak time: 2 mins Volume: 8mL Frequency: Every 2 hours - CPT Code CPT code: [id number] >50 sq cm
[2019-12-12] MEDS: ACETAMINOPHEN 500 MG TABLET (FP) PO PRN (22:33)
[2019-12-12] MEDS: ATORVASTATIN CA 10 MG TABLET (FP) PO SCH (22:35)
[2019-12-12] MEDS: MELATONIN 1 MG TABLET PO PRN (22:42)
[2019-12-13] MEDS: VANCOMYCIN 250 MG/5 ML ORAL SOLUTION PO SCH ×4 (06:06→23:08)
[2019-12-13] MEDS: valACYclovir HCL 500 MG TABLET (FP) PO SCH ×3 (06:07→21:23)
[2019-12-13] MEDS: GABAPENTIN 300 MG CAPSULE PO SCH (06:07)
[2019-12-13] MEDS ORDERED: DEXTROSE 5%-WATER 100 ML IVPB ONE (09:39)
[2019-12-13] MEDS: CEFTRIAXONE 2 GM in DEXTROSE 5%-WATER 100 ML IVPB SCH (09:48)
[2019-12-13] MEDS: LACTOBACILLUS ACIDOPHILUS 1 TABLET PO SCH (09:48)
[2019-12-13] MEDS: APIXABAN 5 MG TABLET PO SCH ×2 (09:48→21:23)
[2019-12-13] MEDS: AMINO ACIDS/PROTEIN HYDROLYS 30 ML LIQUID.PKT PO SCH ×2 (09:48→17:17)
[2019-12-13] MEDS: MINERAL OIL/PET HY-PHL TOPICAL OINTMENT 454 GM JAR TP SCH ×2 (09:48→21:23)
[2019-12-13] MEDS: FUROSEMIDE 40 MG/4 ML INJECTABLE VIAL IVPUSH SCH (09:48)
[2019-12-13] MEDS: SERTRALINE HCL 25 MG TABLET (FP) PO SCH (09:48)
[2019-12-13] MEDS: CLOTRIMAZOLE/BETAMET DIPROP 15 GM TUBE TP SCH ×2 (09:48→21:24)
--- NOTE | 2019-12-13 10:23 | PN ---
Progress Note, Physician Chief Complaint: Right knee wound infection History of Present Illness: NAD, sitting in chair, nausea resolved On Wound vac Right foot drop- is doing ROM exercises Seen by Orthopedic surgery, wound dressing changed with + formation of granulation tissue On IV Vanco Seen by Psychotherapy c/o supra pubic tenderness UC:+ Strep D+ enterococcus As per pt , she was seeing hematology/oncology for Multiple Myeloma? Has seen Dr Lovelace in the past. GI Dr Orozco, last EGD+ Colonoscopy earlier this year at [facility] in - on Augmentin day 4 s/p right knee I&D, removal of hardware, polyethylene liner exchange (orthopaedics) and medial gastrocnemius flap wound coverage (plastics) Denies any burning in the right posterior thigh now Diarrhea improved Seen by speech pathology- MBS done-recommended chopped diet with thin liquids - Current Medication List Current Medications: Active Medications Acetaminophen (Tylenol -) 1,000 mg PO Q6H PRN PRN Reason: PAIN 1-3 Last Admin: 12/12/19 22:33 Dose: 1,000 mg Documented by: Albuterol Sulfate (Ventolin Hfa Inhaler -) 2 puff IH Q4H PRN PRN Reason: SHORT OF BREATH/WHEEZING Amino Acids (Prosource No Carb Liquid Pkt) 30 ml PO BID@0800,1730 [facility] Last Admin: 12/13/19 09:48 Dose: 30 ml Documented by: Apixaban (Eliquis -) 5 mg PO BID [facility] Last Admin: 12/13/19 09:48 Dose: 5 mg Documented by: Atorvastatin Calcium (Lipitor -) 10 mg PO HS [facility] Last Admin: 12/12/19 22:35 Dose: 10 mg Documented by: Clotrimazole (Lotrisone Cream (Small Tube)) 1 applic TP BID [facility] Last Admin: 12/13/19 09:48 Dose: 1 applic Documented by: Emollient Ointment (Aquaphor -) 1 applic TP BID [facility] Last Admin: 12/13/19 09:48 Dose: 1 applic Documented by: Furosemide (Lasix Injection -) 40 mg IVPUSH DAILY [facility] Last Admin: 12/13/19 09:48 Dose: 40 mg Documented by: Gabapentin (Neurontin -) 300 mg PO TID [facility] Last Admin: 12/13/19 06:07 Dose: 300 mg Documented by: Ceftriaxone Sodium 2 gm/ (Dextrose) 100 mls @ 100 mls/hr IVPB DAILY [facility]; Protocol Last Admin: 12/13/19 09:48 Dose: 100 mls/hr Documented by: Lactobacillus Acidophilus (Bacid -) 1 tab PO DAILY [facility] Last Admin: 12/13/19 09:48 Dose: 1 tab Documented by: Melatonin (Melatonin) 3 mg PO HS PRN PRN Reason: INSOMNIA Last Admin: 12/12/19 22:42 Dose: 3 mg Documented by: Ondansetron HCl (Zofran Injection) 4 mg IVPUSH Q6H PRN PRN Reason: NAUSEA Polyethylene Glycol (Miralax (For Daily Use) -) 17 gm PO DAILY PRN PRN Reason: CONSTIPATION Last Admin: 12/08/19 10:01 Dose: 17 grams Documented by: Sertraline HCl (Zoloft -) 25 mg PO DAILY [facility] Last Admin: 12/13/19 09:48 Dose: 25 mg Documented by: Valacyclovir HCl (Valtrex -) 1,000 mg PO TID [facility] Last Admin: 12/13/19 06:07 Dose: 1,000 mg Documented by: Vancomycin HCl (Vancomycin Oral Solution) 125 mg PO Q6HPO [facility] Last Admin: 12/13/19 06:06 Dose: 125 mg Documented by: - Objective Vital Signs: Vital Signs Temperature 98.4 F 12/13/19 09:47 Pulse Rate 80 12/13/19 09:47 Respiratory Rate 20 12/13/19 09:47 Blood Pressure 120/75 12/13/19 09:47 O2 Sat by Pulse Oximetry (%) 96 12/12/19 21:00 Constitutional: Yes: Well Nourished, No Distress, Calm Cardiovascular: Yes: Regular Rate and Rhythm Respiratory: Yes: Regular, CTA Bilaterally Gastrointestinal: Yes: Normal Bowel Sounds, Soft Genitourinary: Yes: Incontinence Musculoskeletal: Yes: Muscle Weakness Extremities: Yes: Other (right knee immobilizer) Edema: No Peripheral Pulses WNL: Yes Wound/Incision: Yes: Dressing Dry and Intact (attached to Wound vac) Neurological: Yes: Alert, Oriented Psychiatric: Yes: Alert, Oriented Labs: CBC, BMP 12/10/19 06:45 12/10/19 06:45 INR, PTT INR 0.97 (0.83-1.09) 12/04/19 07:10 Problem List - Problems (1) Right foot drop Assessment/Plan: -Kerlix over the foot for pt to be able to flex and extend her foot 10 x Q1H -Nursing staff educated to stimulate the ankle by flexing and extending it during their visits in patients room. -Offload B/L heels w/rolled towels under ankles to minimize risk of heel ulcer formation. Problems reviewed: Yes Code(s): M21.371 - FOOT DROP, RIGHT FOOT (2) Surgical wound infection Assessment/Plan: -Last cultures + MRSA -ID consult appreciated -IV Rocephin -Wound vac-to facilitate granulation tissue, changed by plastic surgery -Skin flap with plastic surgery on 12/06/19 -WBAT on RLE -No ROM, pt must have knee immobilizer on at all times Problems reviewed: Yes Code(s): T81.49XA - INFECTION FOLLOWING A PROCEDURE, OTHER SURGICAL SITE, INIT (3) S/P total knee replacement Assessment/Plan: -Seen by orthopedic surgery -Right knee immobilizer -Pain management with tylenol 1g Q6H PRN -NO ROM Right knee (due to patellar ligament rupture). -Increased Neurontin to 300 mg po tid -Vac changes +/- bedside debridements q48-72 hours by plastics team only. -DVT ppx Problems reviewed: Yes Code(s): Z96.659 - PRESENCE OF UNSPECIFIED ARTIFICIAL KNEE JOINT Qualifiers: (4) History of DVT (deep vein thrombosis) Assessment/Plan: -In right popliteal and posterior tibial vein -Eliquis Problems reviewed: Yes Code(s): Z86.718 - PERSONAL HISTORY OF OTHER VENOUS THROMBOSIS AND EMBOLISM (5) VRE (vancomycin resistant enterococcus) culture positive Assessment/Plan: -Completed Unasyn -ID consult appreciated Problems reviewed: Yes Code(s): Z22.39 - CARRIER OF OTHER SPECIFIED BACTERIAL DISEASES Assessment/Plan See problem list Spoke to son who wants his mother to go to either of the following closer to him: 1. [facility] 2. [facility] Spoke to SW to see if the above facilities are in network. If they are out of network, pt will go to [facility]. Repeat COVID 19 PCR pending in preparation of dc to SNF Contact HBO dept to see if pt is able to get 1-2 sessions for HBO before discharge to promote graft healing. Pt to follow up with Dr Craft at the Wound care center within 1 week. Pt will need HBO outpatient to promote wound healing.
--- NOTE | 2019-12-13 11:29 | PN ---
Progress Note, [employer] - Note Progress Note: Selected Entries 12/12/19 12/12/19 12/12/19 08:00 10:00 14:00 Breakfast 50% Diet Tolerated Fair Lunch Skin Risk Level Supper Total Score - Skin Risk Assessment Temperature 98 F 97.9 F Blood Pressure 124/58 L 123/73 12/12/19 12/12/19 12/12/19 14:06 16:50 18:30 Breakfast Diet Tolerated Fair Fair Lunch 50% Skin Risk Level Supper 50% Total Score - Skin Risk Assessment Temperature 98.1 F Blood Pressure 142/80 12/12/19 12/13/19 12/13/19 20:04 06:00 09:47 Breakfast Diet Tolerated Lunch Skin Risk Level Supper Total Score - Skin Risk Assessment Temperature 98.5 F 97.5 F L 98.4 F Blood Pressure 150/76 138/73 120/75 12/13/19 10:00 Breakfast 50% Diet Tolerated Fair Lunch Skin Risk Level Moderate Risk Supper Total Score - 13 Skin Risk Assessment Temperature Blood Pressure Laboratory Tests 12/10/19 06:45 WBC 5.4 MBS completed. Rec made On reg, chopped diet, thin liquid
--- NOTE | 2019-12-13 11:54 | PN ---
Progress Note, Physician History of Present Illness: stable rt foot drop - Current Medication List Current Medications: Active Medications Acetaminophen (Tylenol -) 1,000 mg PO Q6H PRN PRN Reason: PAIN 1-3 Last Admin: 12/12/19 22:33 Dose: 1,000 mg Documented by: Albuterol Sulfate (Ventolin Hfa Inhaler -) 2 puff IH Q4H PRN PRN Reason: SHORT OF BREATH/WHEEZING Amino Acids (Prosource No Carb Liquid Pkt) 30 ml PO BID@0800,1730 [facility] Last Admin: 12/13/19 09:48 Dose: 30 ml Documented by: Apixaban (Eliquis -) 5 mg PO BID [facility] Last Admin: 12/13/19 09:48 Dose: 5 mg Documented by: Atorvastatin Calcium (Lipitor -) 10 mg PO HS [facility] Last Admin: 12/12/19 22:35 Dose: 10 mg Documented by: Clotrimazole (Lotrisone Cream (Small Tube)) 1 applic TP BID [facility] Last Admin: 12/13/19 09:48 Dose: 1 applic Documented by: Emollient Ointment (Aquaphor -) 1 applic TP BID [facility] Last Admin: 12/13/19 09:48 Dose: 1 applic Documented by: Furosemide (Lasix Injection -) 40 mg IVPUSH DAILY [facility] Last Admin: 12/13/19 09:48 Dose: 40 mg Documented by: Gabapentin (Neurontin -) 400 mg PO TID [facility] Ceftriaxone Sodium 2 gm/ (Dextrose) 100 mls @ 100 mls/hr IVPB DAILY [facility]; Protocol Last Admin: 12/13/19 09:48 Dose: 100 mls/hr Documented by: Lactobacillus Acidophilus (Bacid -) 1 tab PO DAILY [facility] Last Admin: 12/13/19 09:48 Dose: 1 tab Documented by: Melatonin (Melatonin) 3 mg PO HS PRN PRN Reason: INSOMNIA Last Admin: 12/12/19 22:42 Dose: 3 mg Documented by: Nystatin (Nystop Powder -) 1 applic TP BID [facility] Ondansetron HCl (Zofran Injection) 4 mg IVPUSH Q6H PRN PRN Reason: NAUSEA Polyethylene Glycol (Miralax (For Daily Use) -) 17 gm PO DAILY PRN PRN Reason: CONSTIPATION Last Admin: 12/08/19 10:01 Dose: 17 grams Documented by: Sertraline HCl (Zoloft -) 25 mg PO DAILY [facility] Last Admin: 12/13/19 09:48 Dose: 25 mg Documented by: Valacyclovir HCl (Valtrex -) 1,000 mg PO TID [facility] Last Admin: 12/13/19 06:07 Dose: 1,000 mg Documented by: Vancomycin HCl (Vancomycin Oral Solution) 125 mg PO Q6HPO [facility] Last Admin: 12/13/19 11:44 Dose: 125 mg Documented by: - Objective Vital Signs: Vital Signs Temperature 98.4 F 12/13/19 09:47 Pulse Rate 80 12/13/19 09:47 Respiratory Rate 20 12/13/19 09:47 Blood Pressure 120/75 12/13/19 09:47 O2 Sat by Pulse Oximetry (%) 96 12/12/19 21:00 Constitutional: Yes: No Distress, Calm Neck: Yes: Supple Cardiovascular: Yes: S1, S2 Respiratory: Yes: Regular, CTA Bilaterally Gastrointestinal: Yes: Normal Bowel Sounds, Soft Musculoskeletal: Yes: WNL Extremities: Yes: Other Neurological: Yes: Alert, Oriented Psychiatric: Yes: Alert, Oriented Labs: CBC, BMP 12/10/19 06:45 12/10/19 06:45 INR, PTT INR 0.97 (0.83-1.09) 12/04/19 07:10 Assessment/Plan Problem List - Problems (1) History of DVT (deep vein thrombosis) Code(s): Z86.718 - PERSONAL HISTORY OF OTHER VENOUS THROMBOSIS AND EMBOLISM (2) Right foot drop Code(s): M21.371 - FOOT DROP, RIGHT FOOT (3) Surgical wound infection Code(s): T81.49XA - INFECTION FOLLOWING A PROCEDURE, OTHER SURGICAL SITE, INIT (4) S/P total knee replacement Code(s): Z96.659 - PRESENCE OF UNSPECIFIED ARTIFICIAL KNEE JOINT Qualifiers: (5) COVID-19 Code(s): U07.1 - COVID POSITIVE (6) Hypertension Code(s): I10 - ESSENTIAL (PRIMARY) HYPERTENSION (7) Inability to ambulate due to knee Code(s): R26.2 - DIFFICULTY IN WALKING, NOT ELSEWHERE CLASSIFIED (8) Yanet-prosthetic fracture around prosthetic knee Code(s): M97.8XXA - PERIPROSTH FRACTURE AROUND OTHER INTERNAL PROSTH JOINT, INIT; Z96.659 - PRESENCE OF UNSPECIFIED ARTIFICIAL KNEE JOINT (9) COPD (chronic obstructive pulmonary disease) Code(s): J44.9 - CHRONIC OBSTRUCTIVE PULMONARY DISEASE, UNSPECIFIED (10) History of revision of total knee arthroplasty Code(s): Z96.659 - PRESENCE OF UNSPECIFIED ARTIFICIAL KNEE JOINT Assessment/Plan 79 y.o. female with PMH of HTN, COPD, Rt pop DVT, COVID, s/p revision of RT TKR and debridements with tibial wound/hardware exposure and possible patellar rupture readmitted for further management Rt tibial wound infection s/p debridement +MRSA /wound vac Rt TKR s/p revisions Possible Rt patellar rupture shingles continue abx ceftriaxone 2g daily complete the course complete the abx course complete valtrex course
[2019-12-13] MEDS ORDERED: ALPRAZolam 0.25 MG TABLET PO ONE (13:15)
[2019-12-13] MEDS: GABAPENTIN 400 MG CAPSULE PO SCH ×2 (13:20→21:23)
[2019-12-13] MEDS: NYSTATIN POWDER 100,000 UNITS/GM - 15 GM TOPICAL POWDER TP SCH ×2 (13:20→21:24)
[2019-12-13] MEDS ORDERED: PT OWN MED DRAWER 7, Y5N ONE (21:06)
[2019-12-13] MEDS: ATORVASTATIN CA 10 MG TABLET (FP) PO SCH (21:23)
[2019-12-13] MEDS: ACETAMINOPHEN 500 MG TABLET (FP) PO PRN (21:24)
[2019-12-13] MEDS: MELATONIN 1 MG TABLET PO PRN (23:09)
[2019-12-14] MEDS: VANCOMYCIN 250 MG/5 ML ORAL SOLUTION PO SCH ×4 (06:08→22:59)
[2019-12-14] MEDS: valACYclovir HCL 500 MG TABLET (FP) PO SCH ×3 (06:09→21:25)
[2019-12-14] MEDS: GABAPENTIN 400 MG CAPSULE PO SCH ×3 (06:09→21:25)
[2019-12-14 08:01] LABS: EOS % 3.1 % (0-4.5); HEMATOCRIT 31.8 % (32.4-45.2); HEMOGLOBIN 10.6 GM/dL (10.7-15.3); LYMPH % 20.7 % (8-40); MCH 31.5 pg (25.7-33.7); MCHC 33.3 g/dl (32.0-36.0); MEAN CELL VOLUME 94.6 fl (80-96); MEAN PLT VOLUME 6.7 fl (7.5-11.1); MONO % 12.2 % (3.8-10.2); PLATELET COUNT 430 K/MM3 (134-434); RBC 3.36 M/mm3 (3.60-5.2); RDW 14.5 % (11.6-15.6); WHITE BLOOD COUNT 4.9 K/mm3 (4.0-10.0)
[2019-12-14 08:17] LABS: ALBUMIN 1.8 g/dl (3.4-5.0); BLOOD UREA NITROGEN 13.2 mg/dL (7-18); CALCIUM 9.6 mg/dL (8.5-10.1); CREATININE 0.5 mg/dL (0.55-1.3); POTASSIUM 3.6 mmol/L (3.5-5.1)
[2019-12-14 08:19] LABS: BILIRUBIN,TOTAL 0.4 mg/dL (0.2-1); TOT PROT 4.8 g/dl (6.4-8.2)
[2019-12-14] MEDS ORDERED: DEXTROSE 5%-WATER 100 ML IVPB ONE (09:20)
[2019-12-14] MEDS ORDERED: PT OWN MED DRAWER 7, Y5N ONE ×2 (09:20→21:08)
[2019-12-14] MEDS: FUROSEMIDE 40 MG/4 ML INJECTABLE VIAL IVPUSH SCH (09:35)
[2019-12-14] MEDS: CEFTRIAXONE 2 GM in DEXTROSE 5%-WATER 100 ML IVPB SCH (09:35)
[2019-12-14] MEDS: ACETAMINOPHEN 500 MG TABLET (FP) PO PRN ×3 (09:35→22:55)
[2019-12-14] MEDS: AMINO ACIDS/PROTEIN HYDROLYS 30 ML LIQUID.PKT PO SCH ×2 (09:35→17:45)
[2019-12-14] MEDS: SERTRALINE HCL 25 MG TABLET (FP) PO SCH (09:35)
[2019-12-14] MEDS: APIXABAN 5 MG TABLET PO SCH ×2 (09:35→21:25)
[2019-12-14] MEDS: LACTOBACILLUS ACIDOPHILUS 1 TABLET PO SCH (09:35)
[2019-12-14] MEDS: MINERAL OIL/PET HY-PHL TOPICAL OINTMENT 454 GM JAR TP SCH ×2 (09:36→21:25)
[2019-12-14] MEDS: CLOTRIMAZOLE/BETAMET DIPROP 15 GM TUBE TP SCH ×2 (09:36→21:25)
[2019-12-14] MEDS: NYSTATIN POWDER 100,000 UNITS/GM - 15 GM TOPICAL POWDER TP SCH ×2 (09:36→21:25)
--- NOTE | 2019-12-14 12:28 | PROC ---
VAC Application - Indications Surgical A decision was made to utilize Negative Pressure Therapy (VAC or Veraflo) to assist in: expedite wound closure through promotion of granulation tissue formation and/or help with debridement of fibrinous slough thus decreasing need for serial debridements. - Wound description Wound location: Other (right knee-wound bed clean. Thigh donor site with xeroform/dry open to air) Length (cm): 10 Width (cm): 5.5 Wound area (sq cm): 55.00 Wound Description: Muscle exposed: No, Tendon exposed: No, Bone exposed: No, Undermining: No - Device VAC Selection: NPT - Procedure Area cleansed. Prepped/draped. Black foam tailored to fit just inside of wound borders to encourage wound contracture. An occlusive dressing applied. Suction disc placed in location so as not to be uncomfortable for the patient or cause any pressure point (foam bridge to hip as necessary). Good seal as verified by complete foam collapse and no leak on unit monitor. Pressure set to 125 mmHg, continuous. Dressing changes: -- - CPT Code CPT code: [id number] >50 sq cm
--- NOTE | 2019-12-14 13:21 | PN ---
Progress Note, Physician Chief Complaint: Right knee wound infection History of Present Illness: NAD, sitting in chair, nausea resolved On Wound vac Right foot drop- is doing ROM exercises Seen by Orthopedic surgery, wound dressing changed with + formation of granulation tissue On IV Vanco Seen by Psychotherapy c/o supra pubic tenderness UC:+ Strep D+ enterococcus As per pt , she was seeing hematology/oncology for Multiple Myeloma? Has seen Dr Lovelace in the past. GI Dr Orozco, last EGD+ Colonoscopy earlier this year at [facility] in - on Augmentin day 4 s/p right knee I&D, removal of hardware, polyethylene liner exchange (orthopaedics) and medial gastrocnemius flap wound coverage (plastics) Denies any burning in the right posterior thigh now Diarrhea improved Seen by speech pathology- MBS done-recommended chopped diet with thin liquids - Current Medication List Current Medications: Active Medications Acetaminophen (Tylenol -) 1,000 mg PO Q6H PRN PRN Reason: PAIN 1-3 Last Admin: 12/14/19 09:35 Dose: 1,000 mg Documented by: Albuterol Sulfate (Ventolin Hfa Inhaler -) 2 puff IH Q4H PRN PRN Reason: SHORT OF BREATH/WHEEZING Amino Acids (Prosource No Carb Liquid Pkt) 30 ml PO BID@0800,1730 [facility] Last Admin: 12/14/19 09:35 Dose: 30 ml Documented by: Apixaban (Eliquis -) 5 mg PO BID [facility] Last Admin: 12/14/19 09:35 Dose: 5 mg Documented by: Atorvastatin Calcium (Lipitor -) 10 mg PO HS [facility] Last Admin: 12/13/19 21:23 Dose: 10 mg Documented by: Clotrimazole (Lotrisone Cream (Small Tube)) 1 applic TP BID [facility] Last Admin: 12/14/19 09:36 Dose: 1 applic Documented by: Emollient Ointment (Aquaphor -) 1 applic TP BID [facility] Last Admin: 12/14/19 09:36 Dose: 1 applic Documented by: Furosemide (Lasix Injection -) 40 mg IVPUSH DAILY [facility] Last Admin: 12/14/19 09:35 Dose: 40 mg Documented by: Gabapentin (Neurontin -) 400 mg PO TID [facility] Last Admin: 12/14/19 06:09 Dose: 400 mg Documented by: Ceftriaxone Sodium 2 gm/ (Dextrose) 100 mls @ 100 mls/hr IVPB DAILY [facility]; Protocol Last Admin: 12/14/19 09:35 Dose: 100 mls/hr Documented by: Lactobacillus Acidophilus (Bacid -) 1 tab PO DAILY [facility] Last Admin: 12/14/19 09:35 Dose: 1 tab Documented by: Melatonin (Melatonin) 3 mg PO HS PRN PRN Reason: INSOMNIA Last Admin: 12/13/19 23:09 Dose: 3 mg Documented by: Nystatin (Nystop Powder -) 1 applic TP BID [facility] Last Admin: 12/14/19 09:36 Dose: 1 applic Documented by: Ondansetron HCl (Zofran Injection) 4 mg IVPUSH Q6H PRN PRN Reason: NAUSEA Polyethylene Glycol (Miralax (For Daily Use) -) 17 gm PO DAILY PRN PRN Reason: CONSTIPATION Last Admin: 12/08/19 10:01 Dose: 17 grams Documented by: Sertraline HCl (Zoloft -) 25 mg PO DAILY [facility] Last Admin: 12/14/19 09:35 Dose: 25 mg Documented by: Valacyclovir HCl (Valtrex -) 1,000 mg PO TID [facility] Last Admin: 12/14/19 06:09 Dose: 1,000 mg Documented by: Vancomycin HCl (Vancomycin Oral Solution) 125 mg PO Q6HPO [facility] Last Admin: 12/14/19 12:22 Dose: 125 mg Documented by: - Objective Vital Signs: Vital Signs Temperature 98.2 F 12/14/19 09:00 Pulse Rate 90 12/14/19 09:00 Respiratory Rate 20 12/14/19 09:00 Blood Pressure 130/80 12/14/19 09:00 O2 Sat by Pulse Oximetry (%) 97 12/13/19 19:34 Constitutional: Yes: Well Nourished, No Distress, Calm Cardiovascular: Yes: Regular Rate and Rhythm Respiratory: Yes: Regular, CTA Bilaterally Gastrointestinal: Yes: Normal Bowel Sounds, Soft Genitourinary: Yes: Incontinence Musculoskeletal: Yes: Muscle Weakness Extremities: Yes: Other (right knee immobilizer) Edema: Yes (Right foot) Peripheral Pulses WNL: Yes Wound/Incision: Yes: Dressing Dry and Intact (right knee w/ wound vac) Neurological: Yes: Alert, Oriented Psychiatric: Yes: Alert, Oriented Labs: CBC, BMP 12/14/19 06:55 12/14/19 06:55 INR, PTT INR 0.97 (0.83-1.09) 12/04/19 07:10 Problem List - Problems (1) Right foot drop Assessment/Plan: -Kerlix over the foot for pt to be able to flex and extend her foot 10 x Q1H -Nursing staff educated to stimulate the ankle by flexing and extending it during their visits in patients room. -Offload B/L heels w/rolled towels under ankles to minimize risk of heel ulcer formation. Problems reviewed: Yes Code(s): M21.371 - FOOT DROP, RIGHT FOOT (2) Surgical wound infection Assessment/Plan: -Last cultures + MRSA -ID consult appreciated -IV Rocephin -Wound vac-to facilitate granulation tissue, changed by plastic surgery -Skin flap with plastic surgery on 12/06/19 -WBAT on RLE -No ROM, pt must have knee immobilizer on at all times -HBO tx #1 yesterday, next treatment due on Tuesday12/17/19 -Furosemide 40 mg po daily Problems reviewed: Yes Code(s): T81.49XA - INFECTION FOLLOWING A PROCEDURE, OTHER SURGICAL SITE, INIT (3) S/P total knee replacement Assessment/Plan: -Seen by orthopedic surgery -Right knee immobilizer -Pain management with tylenol 1g Q6H PRN -NO ROM Right knee (due to patellar ligament rupture). -Increased Neurontin to 300 mg po tid -Vac changes +/- bedside debridements q48-72 hours by plastics team only. -DVT ppx Problems reviewed: Yes Code(s): Z96.659 - PRESENCE OF UNSPECIFIED ARTIFICIAL KNEE JOINT Qualifiers: (4) History of DVT (deep vein thrombosis) Assessment/Plan: -In right popliteal and posterior tibial vein -Eliquis Problems reviewed: Yes Code(s): Z86.718 - PERSONAL HISTORY OF OTHER VENOUS THROMBOSIS AND EMBOLISM (5) VRE (vancomycin resistant enterococcus) culture positive Assessment/Plan: -Completed Unasyn -ID consult appreciated Problems reviewed: Yes Code(s): Z22.39 - CARRIER OF OTHER SPECIFIED BACTERIAL DISEASES Assessment/Plan See problem list Repeat COVID 19 PCR in AM in preparation of d/c on tuesday to 2 sessions of HBO inpatient then Pt to follow up with Dr Craft at the Wound care center within 1 week. Pt will need HBO outpatient to promote wound healing.
--- NOTE | 2019-12-14 18:17 | PN ---
Progress Note, Physician History of Present Illness: Pt states she feels well. Has no specific complaints. Denies diarrhea. Wants to switch back to regular diet. - Current Medication List Current Medications: Active Medications Acetaminophen (Tylenol -) 1,000 mg PO Q6H PRN PRN Reason: PAIN 1-3 Last Admin: 12/14/19 17:44 Dose: 1,000 mg Documented by: Albuterol Sulfate (Ventolin Hfa Inhaler -) 2 puff IH Q4H PRN PRN Reason: SHORT OF BREATH/WHEEZING Amino Acids (Prosource No Carb Liquid Pkt) 30 ml PO BID@0800,1730 [facility] Last Admin: 12/14/19 17:45 Dose: 30 ml Documented by: Apixaban (Eliquis -) 5 mg PO BID [facility] Last Admin: 12/14/19 09:35 Dose: 5 mg Documented by: Atorvastatin Calcium (Lipitor -) 10 mg PO HS [facility] Last Admin: 12/13/19 21:23 Dose: 10 mg Documented by: Clotrimazole (Lotrisone Cream (Small Tube)) 1 applic TP BID [facility] Last Admin: 12/14/19 09:36 Dose: 1 applic Documented by: Emollient Ointment (Aquaphor -) 1 applic TP BID [facility] Last Admin: 12/14/19 09:36 Dose: 1 applic Documented by: Furosemide (Lasix Injection -) 40 mg IVPUSH DAILY [facility] Last Admin: 12/14/19 09:35 Dose: 40 mg Documented by: Gabapentin (Neurontin -) 400 mg PO TID [facility] Last Admin: 12/14/19 14:48 Dose: 400 mg Documented by: Ceftriaxone Sodium 2 gm/ (Dextrose) 100 mls @ 100 mls/hr IVPB DAILY [facility]; Protocol Last Admin: 12/14/19 09:35 Dose: 100 mls/hr Documented by: Lactobacillus Acidophilus (Bacid -) 1 tab PO DAILY [facility] Last Admin: 12/14/19 09:35 Dose: 1 tab Documented by: Melatonin (Melatonin) 3 mg PO HS PRN PRN Reason: INSOMNIA Last Admin: 12/13/19 23:09 Dose: 3 mg Documented by: Nystatin (Nystop Powder -) 1 applic TP BID [facility] Last Admin: 12/14/19 09:36 Dose: 1 applic Documented by: Ondansetron HCl (Zofran Injection) 4 mg IVPUSH Q6H PRN PRN Reason: NAUSEA Polyethylene Glycol (Miralax (For Daily Use) -) 17 gm PO DAILY PRN PRN Reason: CONSTIPATION Last Admin: 12/08/19 10:01 Dose: 17 grams Documented by: Potassium Chloride (K-Dur -) 20 meq PO DAILY [facility] Sertraline HCl (Zoloft -) 25 mg PO DAILY [facility] Last Admin: 12/14/19 09:35 Dose: 25 mg Documented by: Valacyclovir HCl (Valtrex -) 1,000 mg PO TID [facility] Last Admin: 12/14/19 14:48 Dose: 1,000 mg Documented by: Vancomycin HCl (Vancomycin Oral Solution) 125 mg PO Q6HPO [facility] Last Admin: 12/14/19 17:44 Dose: 125 mg Documented by: - Objective Vital Signs: Vital Signs Temperature 98.1 F 12/14/19 16:20 Pulse Rate 100 H 12/14/19 16:20 Respiratory Rate 20 12/14/19 16:20 Blood Pressure 146/70 12/14/19 16:20 O2 Sat by Pulse Oximetry (%) 97 12/13/19 19:34 Constitutional: Yes: No Distress, Calm Respiratory: Yes: Regular Gastrointestinal: Yes: Normal Bowel Sounds, Soft Wound/Incision: Yes: Other (LE dressings/vac in place/immobilizer) Neurological: Yes: Alert, Oriented Labs: CBC, BMP 12/14/19 06:55 12/14/19 06:55 INR, PTT INR 0.97 (0.83-1.09) 12/04/19 07:10 Microbiology 12/10/19 11:15 Stool Clostridioides difficile Antigen - Final 12/10/19 11:15 Stool Clostridioides difficile Toxin Assay - Final 12/04/19 10:31 Knee - Right Gram Stain - Final 12/04/19 10:31 Knee - Right Wound Culture - Final Klebsiella Pneumoniae 12/04/19 09:27 Knee - Right Gram Stain - Final 12/04/19 09:27 Knee - Right Wound Culture - Final Klebsiella Pneumoniae 12/04/19 09:28 Knee - Right Gram Stain - Final 12/04/19 09:28 Knee - Right Wound Culture - Final Klebsiella Pneumoniae 12/04/19 08:43 Knee - Right Gram Stain - Final 12/04/19 08:43 Knee - Right Wound Culture - Final Klebsiella Pneumoniae 12/04/19 10:31 Knee - Right DHEERAJ Preparation - Preliminary 12/04/19 10:31 Knee - Right Fungal Culture - Preliminary 12/04/19 09:28 Knee - Right DHEERAJ Preparation - Preliminary 12/04/19 09:28 Knee - Right Fungal Culture - Preliminary 12/04/19 09:27 Knee - Right DHEERAJ Preparation - Preliminary 12/04/19 09:27 Knee - Right Fungal Culture - Preliminary 12/04/19 08:43 Knee - Right DHEERAJ Preparation - Preliminary 12/04/19 08:43 Knee - Right Fungal Culture - Preliminary 11/27/19 14:45 Urine - Urostomy Bag Urine Culture - Final Vr Ec Faecalis Yeast Like Organism Problem List - Problems (1) History of DVT (deep vein thrombosis) Code(s): Z86.718 - PERSONAL HISTORY OF OTHER VENOUS THROMBOSIS AND EMBOLISM (2) Right foot drop Code(s): M21.371 - FOOT DROP, RIGHT FOOT (3) Surgical wound infection Code(s): T81.49XA - INFECTION FOLLOWING A PROCEDURE, OTHER SURGICAL SITE, INIT (4) S/P total knee replacement Code(s): Z96.659 - PRESENCE OF UNSPECIFIED ARTIFICIAL KNEE JOINT Qualifiers: (5) COVID-19 Code(s): U07.1 - COVID POSITIVE (6) Hypertension Code(s): I10 - ESSENTIAL (PRIMARY) HYPERTENSION (7) Inability to ambulate due to knee Code(s): R26.2 - DIFFICULTY IN WALKING, NOT ELSEWHERE CLASSIFIED (8) Yanet-prosthetic fracture around prosthetic knee Code(s): M97.8XXA - PERIPROSTH FRACTURE AROUND OTHER INTERNAL PROSTH JOINT, INIT; Z96.659 - PRESENCE OF UNSPECIFIED ARTIFICIAL KNEE JOINT (9) COPD (chronic obstructive pulmonary disease) Code(s): J44.9 - CHRONIC OBSTRUCTIVE PULMONARY DISEASE, UNSPECIFIED (10) History of revision of total knee arthroplasty Code(s): Z96.659 - PRESENCE OF UNSPECIFIED ARTIFICIAL KNEE JOINT Assessment/Plan Rt tibial wound infection s/p debridement (Previous +MRSA) /wound vac Rt TKR s/p revisions Rt patellar rupture UTI Hx C.dif -- latest cultures noted -- continue Ceftriaxone -- afebrile, vitals stable -- denies diarrhea
[2019-12-14] MEDS: ATORVASTATIN CA 10 MG TABLET (FP) PO SCH (21:25)
[2019-12-14] MEDS: MELATONIN 1 MG TABLET PO PRN (22:55)
[2019-12-15] MEDS: GABAPENTIN 400 MG CAPSULE PO SCH ×3 (05:49→21:27)
[2019-12-15] MEDS: valACYclovir HCL 500 MG TABLET (FP) PO SCH ×3 (05:50→21:27)
[2019-12-15] MEDS: VANCOMYCIN 250 MG/5 ML ORAL SOLUTION PO SCH ×3 (05:50→17:50)
[2019-12-15] MEDS: AMINO ACIDS/PROTEIN HYDROLYS 30 ML LIQUID.PKT PO SCH ×2 (08:38→17:50)
[2019-12-15] MEDS ORDERED: DEXTROSE 5%-WATER 100 ML IVPB ONE (09:09)
--- NOTE | 2019-12-15 09:13 | PN ---
Progress Note, Physician - Current Medication List Current Medications: Active Medications Acetaminophen (Tylenol -) 1,000 mg PO Q6H PRN PRN Reason: PAIN 1-3 Last Admin: 12/14/19 22:55 Dose: 1,000 mg Documented by: Albuterol Sulfate (Ventolin Hfa Inhaler -) 2 puff IH Q4H PRN PRN Reason: SHORT OF BREATH/WHEEZING Amino Acids (Prosource No Carb Liquid Pkt) 30 ml PO BID@0800,1730 [facility] Last Admin: 12/15/19 08:38 Dose: 30 ml Documented by: Apixaban (Eliquis -) 5 mg PO BID [facility] Last Admin: 12/14/19 21:25 Dose: 5 mg Documented by: Atorvastatin Calcium (Lipitor -) 10 mg PO HS [facility] Last Admin: 12/14/19 21:25 Dose: 10 mg Documented by: Clotrimazole (Lotrisone Cream (Small Tube)) 1 applic TP BID [facility] Last Admin: 12/14/19 21:25 Dose: 1 applic Documented by: Emollient Ointment (Aquaphor -) 1 applic TP BID [facility] Last Admin: 12/14/19 21:25 Dose: 1 applic Documented by: Furosemide (Lasix Injection -) 40 mg IVPUSH DAILY [facility] Last Admin: 12/14/19 09:35 Dose: 40 mg Documented by: Gabapentin (Neurontin -) 400 mg PO TID [facility] Last Admin: 12/15/19 05:49 Dose: 400 mg Documented by: Ceftriaxone Sodium 2 gm/ (Dextrose) 100 mls @ 100 mls/hr IVPB DAILY [facility]; Protocol Last Admin: 12/14/19 09:35 Dose: 100 mls/hr Documented by: Lactobacillus Acidophilus (Bacid -) 1 tab PO DAILY [facility] Last Admin: 12/14/19 09:35 Dose: 1 tab Documented by: Melatonin (Melatonin) 3 mg PO HS PRN PRN Reason: INSOMNIA Last Admin: 12/14/19 22:55 Dose: 3 mg Documented by: Nystatin (Nystop Powder -) 1 applic TP BID [facility] Last Admin: 12/14/19 21:25 Dose: 1 applic Documented by: Ondansetron HCl (Zofran Injection) 4 mg IVPUSH Q6H PRN PRN Reason: NAUSEA Polyethylene Glycol (Miralax (For Daily Use) -) 17 gm PO DAILY PRN PRN Reason: CONSTIPATION Last Admin: 12/08/19 10:01 Dose: 17 grams Documented by: Potassium Chloride (K-Dur -) 20 meq PO DAILY [facility] Sertraline HCl (Zoloft -) 25 mg PO DAILY [facility] Last Admin: 12/14/19 09:35 Dose: 25 mg Documented by: Valacyclovir HCl (Valtrex -) 1,000 mg PO TID [facility] Last Admin: 12/15/19 05:50 Dose: 1,000 mg Documented by: Vancomycin HCl (Vancomycin Oral Solution) 125 mg PO Q6HPO [facility] Last Admin: 12/15/19 05:50 Dose: 125 mg Documented by: - Objective Vital Signs: Vital Signs Temperature 97.3 F L 12/15/19 04:00 Pulse Rate 82 12/15/19 04:00 Respiratory Rate 20 12/15/19 04:00 Blood Pressure 123/56 L 12/15/19 04:00 O2 Sat by Pulse Oximetry (%) 97 12/13/19 19:34 Cardiovascular: Yes: S1, S2 Respiratory: Yes: Regular, CTA Bilaterally Gastrointestinal: Yes: Normal Bowel Sounds, Soft Labs: CBC, BMP 12/14/19 06:55 12/14/19 06:55 INR, PTT INR 0.97 (0.83-1.09) 12/04/19 07:10 Assessment/Plan - Problems (1) Right foot drop Assessment/Plan: -Kerlix over the foot for pt to be able to flex and extend her foot 10 x Q1H -Nursing staff educated to stimulate the ankle by flexing and extending it during their visits in patients room. -Offload B/L heels w/rolled towels under ankles to minimize risk of heel ulcer formation. Problems reviewed: Yes Code(s): M21.371 - FOOT DROP, RIGHT FOOT (2) Surgical wound infection Assessment/Plan: -Last cultures + MRSA -ID consult appreciated -IV Rocephin -Wound vac-to facilitate granulation tissue, changed by plastic surgery -Skin flap with plastic surgery on 12/06/19 -WBAT on RLE -No ROM, pt must have knee immobilizer on at all times -HBO tx #1 yesterday, next treatment due on Tuesday12/17/19 -Furosemide 40 mg po daily Problems reviewed: Yes Code(s): T81.49XA - INFECTION FOLLOWING A PROCEDURE, OTHER SURGICAL SITE, INIT (3) S/P total knee replacement Assessment/Plan: -Seen by orthopedic surgery -Right knee immobilizer -Pain management with tylenol 1g Q6H PRN -NO ROM Right knee (due to patellar ligament rupture). -Increased Neurontin to 300 mg po tid -Vac changes +/- bedside debridements q48-72 hours by plastics team only. -DVT ppx Problems reviewed: Yes Code(s): Z96.659 - PRESENCE OF UNSPECIFIED ARTIFICIAL KNEE JOINT Qualifiers: (4) History of DVT (deep vein thrombosis) Assessment/Plan: -In right popliteal and posterior tibial vein -Eliquis Problems reviewed: Yes Code(s): Z86.718 - PERSONAL HISTORY OF OTHER VENOUS THROMBOSIS AND EMBOLISM (5) VRE (vancomycin resistant enterococcus) culture positive Assessment/Plan: -Completed Unasyn -ID consult appreciated Problems reviewed: Yes Code(s): Z22.39 - CARRIER OF OTHER SPECIFIED BACTERIAL DISEASES Assessment/Plan See problem list Repeat COVID 19 PCR in AM in preparation of d/c on tuesday to 2 sessions of HBO inpatient then Pt to follow up with Dr Craft [facility] within 1 week. Pt will need HBO outpatient to promote wound healing.
[2019-12-15] MEDS: NYSTATIN POWDER 100,000 UNITS/GM - 15 GM TOPICAL POWDER TP SCH ×2 (09:16→21:27)
[2019-12-15] MEDS: FUROSEMIDE 40 MG/4 ML INJECTABLE VIAL IVPUSH SCH (09:16)
[2019-12-15] MEDS: CEFTRIAXONE 2 GM in DEXTROSE 5%-WATER 100 ML IVPB SCH (09:16)
[2019-12-15] MEDS: SERTRALINE HCL 25 MG TABLET (FP) PO SCH (09:17)
[2019-12-15] MEDS: CLOTRIMAZOLE/BETAMET DIPROP 15 GM TUBE TP SCH ×2 (09:17→21:26)
[2019-12-15] MEDS: LACTOBACILLUS ACIDOPHILUS 1 TABLET PO SCH (09:18)
[2019-12-15] MEDS: MINERAL OIL/PET HY-PHL TOPICAL OINTMENT 454 GM JAR TP SCH ×2 (09:18→21:26)
[2019-12-15] MEDS: APIXABAN 5 MG TABLET PO SCH ×2 (09:18→21:26)
[2019-12-15] MEDS: POTASSIUM CHLORIDE TABS 20 MEQ TABLET.ER (FP) PO SCH (09:18)
[2019-12-15] MEDS ORDERED: INSULIN (NOVOLOG) ASPART 100 UNITS/ML 10ML VIAL ONE (11:51)
--- NOTE | 2019-12-15 18:32 | PN ---
Progress Note, Physician History of Present Illness: Pt without new complaints. Afebrile, tolerating antibiotics. - Current Medication List Current Medications: Active Medications Acetaminophen (Tylenol -) 1,000 mg PO Q6H PRN PRN Reason: PAIN 1-3 Last Admin: 12/14/19 22:55 Dose: 1,000 mg Documented by: Albuterol Sulfate (Ventolin Hfa Inhaler -) 2 puff IH Q4H PRN PRN Reason: SHORT OF BREATH/WHEEZING Amino Acids (Prosource No Carb Liquid Pkt) 30 ml PO BID@0800,1730 [facility] Last Admin: 12/15/19 17:50 Dose: 30 ml Documented by: Apixaban (Eliquis -) 5 mg PO BID [facility] Last Admin: 12/15/19 09:18 Dose: 5 mg Documented by: Atorvastatin Calcium (Lipitor -) 10 mg PO HS [facility] Last Admin: 12/14/19 21:25 Dose: 10 mg Documented by: Clotrimazole (Lotrisone Cream (Small Tube)) 1 applic TP BID [facility] Last Admin: 12/15/19 09:17 Dose: 1 applic Documented by: Emollient Ointment (Aquaphor -) 1 applic TP BID [facility] Last Admin: 12/15/19 09:18 Dose: 1 applic Documented by: Furosemide (Lasix Injection -) 40 mg IVPUSH DAILY [facility] Last Admin: 12/15/19 09:16 Dose: 40 mg Documented by: Gabapentin (Neurontin -) 400 mg PO TID [facility] Last Admin: 12/15/19 13:09 Dose: 400 mg Documented by: Ceftriaxone Sodium 2 gm/ (Dextrose) 100 mls @ 100 mls/hr IVPB DAILY [facility]; Protocol Last Admin: 12/15/19 09:16 Dose: 100 mls/hr Documented by: Lactobacillus Acidophilus (Bacid -) 1 tab PO DAILY [facility] Last Admin: 12/15/19 09:18 Dose: 1 tab Documented by: Melatonin (Melatonin) 3 mg PO HS PRN PRN Reason: INSOMNIA Last Admin: 12/14/19 22:55 Dose: 3 mg Documented by: Nystatin (Nystop Powder -) 1 applic TP BID [facility] Last Admin: 12/15/19 09:16 Dose: 1 applic Documented by: Ondansetron HCl (Zofran Injection) 4 mg IVPUSH Q6H PRN PRN Reason: NAUSEA Polyethylene Glycol (Miralax (For Daily Use) -) 17 gm PO DAILY PRN PRN Reason: CONSTIPATION Last Admin: 12/08/19 10:01 Dose: 17 grams Documented by: Potassium Chloride (K-Dur -) 20 meq PO DAILY [facility] Last Admin: 12/15/19 09:18 Dose: 20 meq Documented by: Sertraline HCl (Zoloft -) 25 mg PO DAILY [facility] Last Admin: 12/15/19 09:17 Dose: 25 mg Documented by: Valacyclovir HCl (Valtrex -) 1,000 mg PO TID [facility] Last Admin: 12/15/19 13:09 Dose: 1,000 mg Documented by: Vancomycin HCl (Vancomycin Oral Solution) 125 mg PO Q6HPO [facility] Last Admin: 12/15/19 17:50 Dose: 125 mg Documented by: - Objective Vital Signs: Vital Signs Temperature 98.8 F 12/15/19 09:13 Pulse Rate 92 H 12/15/19 09:13 Respiratory Rate 18 12/15/19 09:13 Blood Pressure 141/57 L 12/15/19 09:13 O2 Sat by Pulse Oximetry (%) 97 12/13/19 19:34 Constitutional: Yes: No Distress, Calm Cardiovascular: Yes: Regular Rate and Rhythm Respiratory: Yes: Regular Gastrointestinal: Yes: Normal Bowel Sounds, Soft Wound/Incision: Yes: Other (Leg with wound vac/immobilizer) Neurological: Yes: Alert, Oriented Labs: CBC, BMP 12/14/19 06:55 12/14/19 06:55 INR, PTT INR 0.97 (0.83-1.09) 12/04/19 07:10 Laboratory Last Values WBC 4.9 K/mm3 (4.0-10.0) 12/14/19 06:55 RBC 3.36 M/mm3 (3.60-5.2) L 12/14/19 06:55 Hgb 10.6 GM/dL (10.7-15.3) L 12/14/19 06:55 Hct 31.8 % (32.4-45.2) L 12/14/19 06:55 MCV 94.6 fl (80-96) 12/14/19 06:55 MCH 31.5 pg (25.7-33.7) 12/14/19 06:55 MCHC 33.3 g/dl (32.0-36.0) 12/14/19 06:55 RDW 14.5 % (11.6-15.6) 12/14/19 06:55 Plt Count 430 K/MM3 (134-434) 12/14/19 06:55 MPV 6.7 fl (7.5-11.1) L 12/14/19 06:55 Absolute Neuts (auto) 3.1 K/mm3 (1.5-8.0) 12/14/19 06:55 Neutrophils % 63.0 % (42.8-82.8) 12/14/19 06:55 Lymphocytes % 20.7 % (8-40) 12/14/19 06:55 Monocytes % 12.2 % (3.8-10.2) H 12/14/19 06:55 Eosinophils % 3.1 % (0-4.5) D 12/14/19 06:55 Basophils % 1.0 % (0-2.0) 12/14/19 06:55 Nucleated RBC % 0 % (0-0) 12/14/19 06:55 PT with INR 11.50 SEC (9.7-13.0) 12/04/19 07:10 INR 0.97 (0.83-1.09) 12/04/19 07:10 PTT (Actin FS) 30.9 SECONDS (25.2-36.5) 12/04/19 07:10 Sodium 134 mmol/L (136-145) L 12/14/19 06:55 Potassium 3.6 mmol/L (3.5-5.1) 12/14/19 06:55 Chloride 98 mmol/L (98-107) 12/14/19 06:55 Carbon Dioxide 30 mmol/L (21-32) 12/14/19 06:55 Anion Gap 6 MMOL/L (8-16) L 12/14/19 06:55 BUN 13.2 mg/dL (7-18) 12/14/19 06:55 Creatinine 0.5 mg/dL (0.55-1.3) L 12/14/19 06:55 Est GFR (CKD-EPI)AfAm 105.20 12/14/19 06:55 Est GFR (CKD-EPI)NonAf 90.77 12/14/19 06:55 POC Glucometer 152 UNITS (80-120) 11/15/19 05:37 Random Glucose 94 mg/dL (74-106) 12/14/19 06:55 Calcium 9.6 mg/dL (8.5-10.1) 12/14/19 06:55 Phosphorus 2.8 mg/dL (2.5-4.9) 11/17/19 06:00 Magnesium 2.1 mg/dL (1.8-2.4) 12/10/19 06:45 Total Bilirubin 0.4 mg/dL (0.2-1) 12/14/19 06:55 AST 10 U/L (15-37) L 12/14/19 06:55 ALT 8 U/L (13-61) L 12/14/19 06:55 Alkaline Phosphatase 101 U/L (45-117) 12/14/19 06:55 Total Protein 4.8 g/dl (6.4-8.2) L 12/14/19 06:55 Albumin 1.8 g/dl (3.4-5.0) L 12/14/19 06:55 Urine Color Yellow 11/27/19 14:45 Urine Appearance Turbid 11/27/19 14:45 Urine pH 5.5 (5.0-8.0) 11/27/19 14:45 Ur Specific [place] 1.016 (1.010-1.035) 11/27/19 14:45 Urine Protein Negative (NEGATIVE) 11/27/19 14:45 Urine Glucose (UA) Negative (NEGATIVE) 11/27/19 14:45 Urine Ketones Negative (NEGATIVE) 11/27/19 14:45 Urine Blood 1+ (NEGATIVE) H 11/27/19 14:45 Urine Nitrite Negative (NEGATIVE) 11/27/19 14:45 Urine Bilirubin Negative (NEGATIVE) 11/27/19 14:45 Urine Urobilinogen 0.2 mg/dL (0.2-1.0) 11/27/19 14:45 Ur Leukocyte Esterase 3+ (NEGATIVE) H 11/27/19 14:45 Urine WBC (Auto) 3409 /uL (0-25.8) 11/27/19 14:45 Urine RBC (Auto) 111.1 /uL (0-23.9) 11/27/19 14:45 Urine Casts (Auto) 1 /uL (0-3.1) 11/27/19 14:45 U Epithel Cells (Auto) >36 /uL (0-25.1) 11/27/19 14:45 Urine Crystals (Auto) 1-2 /hpf 11/27/19 14:45 Urine Bacteria (Auto) 4256 /uL (0-1359) 11/27/19 14:45 Urine Yeast (Auto) None seen (NEGATIVE) 11/27/19 14:45 Random Vancomycin 12.9 ug/ml (5-26) 11/25/19 13:50 Vancomycin Pre-Dose 13.3 ug/ml (5-10) H 12/03/19 13:45 COVID-19 (HANNY) Not detected (Not Detected) 12/12/19 12:50 Blood Type O POSITIVE 12/04/19 09:35 Antibody Screen Negative 12/04/19 09:35 Crossmatch See Detail 12/04/19 09:35 Crossmatch IS Only See Detail 12/04/19 09:35 Microbiology 12/10/19 11:15 Stool Clostridioides difficile Antigen - Final 12/10/19 11:15 Stool Clostridioides difficile Toxin Assay - Final 12/04/19 10:31 Knee - Right Gram Stain - Final 12/04/19 10:31 Knee - Right Wound Culture - Final Klebsiella Pneumoniae 12/04/19 09:27 Knee - Right Gram Stain - Final 12/04/19 09:27 Knee - Right Wound Culture - Final Klebsiella Pneumoniae 12/04/19 09:28 Knee - Right Gram Stain - Final 12/04/19 09:28 Knee - Right Wound Culture - Final Klebsiella Pneumoniae 12/04/19 08:43 Knee - Right Gram Stain - Final 12/04/19 08:43 Knee - Right Wound Culture - Final Klebsiella Pneumoniae 12/04/19 10:31 Knee - Right DHEERAJ Preparation - Preliminary 12/04/19 10:31 Knee - Right Fungal Culture - Preliminary 12/04/19 09:28 Knee - Right DHEERAJ Preparation - Preliminary 12/04/19 09:28 Knee - Right Fungal Culture - Preliminary 12/04/19 09:27 Knee - Right DHEERAJ Preparation - Preliminary 12/04/19 09:27 Knee - Right Fungal Culture - Preliminary 12/04/19 08:43 Knee - Right DHEERAJ Preparation - Preliminary 12/04/19 08:43 Knee - Right Fungal Culture - Preliminary 11/27/19 14:45 Urine - Urostomy Bag Urine Culture - Final Vr Ec Faecalis Yeast Like Organism Problem List - Problems (1) History of DVT (deep vein thrombosis) Code(s): Z86.718 - PERSONAL HISTORY OF OTHER VENOUS THROMBOSIS AND EMBOLISM (2) Right foot drop Code(s): M21.371 - FOOT DROP, RIGHT FOOT (3) Surgical wound infection Code(s): T81.49XA - INFECTION FOLLOWING A PROCEDURE, OTHER SURGICAL SITE, INIT (4) S/P total knee replacement Code(s): Z96.659 - PRESENCE OF UNSPECIFIED ARTIFICIAL KNEE JOINT Qualifiers: (5) COVID-19 Code(s): U07.1 - COVID POSITIVE (6) Inability to ambulate due to knee Code(s): R26.2 - DIFFICULTY IN WALKING, NOT ELSEWHERE CLASSIFIED (7) Yanet-prosthetic fracture around prosthetic knee Code(s): M97.8XXA - PERIPROSTH FRACTURE AROUND OTHER INTERNAL PROSTH JOINT, INIT; Z96.659 - PRESENCE OF UNSPECIFIED ARTIFICIAL KNEE JOINT (8) COPD (chronic obstructive pulmonary disease) Code(s): J44.9 - CHRONIC OBSTRUCTIVE PULMONARY DISEASE, UNSPECIFIED (9) History of revision of total knee arthroplasty Code(s): Z96.659 - PRESENCE OF UNSPECIFIED ARTIFICIAL KNEE JOINT Assessment/Plan Rt tibial wound infection s/p debridement (Previous +MRSA, latest Klebsiella) /wound vac Rt TKR s/p revisions Rt patellar rupture UTI Hx C.dif -- continue Ceftriaxone -- afebrile, vitals stable -- Orthopedics following
[2019-12-15] MEDS: ACETAMINOPHEN 500 MG TABLET (FP) PO PRN (20:27)
[2019-12-15] MEDS: ATORVASTATIN CA 10 MG TABLET (FP) PO SCH (21:26)
[2019-12-15] MEDS ORDERED: PT OWN MED DRAWER 7, Y5N ONE (23:06)
[2019-12-16] MEDS: VANCOMYCIN 250 MG/5 ML ORAL SOLUTION PO SCH ×4 (00:49→17:44)
[2019-12-16] MEDS: valACYclovir HCL 500 MG TABLET (FP) PO SCH ×3 (06:45→22:14)
[2019-12-16] MEDS: GABAPENTIN 400 MG CAPSULE PO SCH ×3 (06:45→22:15)
[2019-12-16] MEDS ORDERED: DEXTROSE 5%-WATER 100 ML IVPB ONE (08:49)
[2019-12-16] MEDS ORDERED: PT OWN MED DRAWER 7, Y5N ONE (08:49)
[2019-12-16] MEDS: FUROSEMIDE 40 MG/4 ML INJECTABLE VIAL IVPUSH SCH (09:01)
[2019-12-16] MEDS: CEFTRIAXONE 2 GM in DEXTROSE 5%-WATER 100 ML IVPB SCH (09:01)
[2019-12-16] MEDS: APIXABAN 5 MG TABLET PO SCH ×2 (09:02→22:14)
[2019-12-16] MEDS: POTASSIUM CHLORIDE TABS 20 MEQ TABLET.ER (FP) PO SCH (09:02)
[2019-12-16] MEDS: LACTOBACILLUS ACIDOPHILUS 1 TABLET PO SCH (09:02)
[2019-12-16] MEDS: SERTRALINE HCL 25 MG TABLET (FP) PO SCH (09:02)
[2019-12-16] MEDS: MINERAL OIL/PET HY-PHL TOPICAL OINTMENT 454 GM JAR TP SCH ×2 (09:02→22:17)
[2019-12-16] MEDS: AMINO ACIDS/PROTEIN HYDROLYS 30 ML LIQUID.PKT PO SCH ×2 (09:02→17:44)
[2019-12-16] MEDS: CLOTRIMAZOLE/BETAMET DIPROP 15 GM TUBE TP SCH ×2 (09:03→22:17)
[2019-12-16] MEDS: NYSTATIN POWDER 100,000 UNITS/GM - 15 GM TOPICAL POWDER TP SCH ×2 (09:03→22:18)
[2019-12-16] MEDS: ACETAMINOPHEN 500 MG TABLET (FP) PO PRN ×2 (10:10→18:46)
--- NOTE | 2019-12-16 10:18 | PN ---
Progress Note, Physician - Current Medication List Current Medications: Active Medications Acetaminophen (Tylenol -) 1,000 mg PO Q6H PRN PRN Reason: PAIN 1-3 Last Admin: 12/16/19 10:10 Dose: 1,000 mg Documented by: Albuterol Sulfate (Ventolin Hfa Inhaler -) 2 puff IH Q4H PRN PRN Reason: SHORT OF BREATH/WHEEZING Amino Acids (Prosource No Carb Liquid Pkt) 30 ml PO BID@0800,1730 [facility] Last Admin: 12/16/19 09:02 Dose: 30 ml Documented by: Apixaban (Eliquis -) 5 mg PO BID [facility] Last Admin: 12/16/19 09:02 Dose: 5 mg Documented by: Atorvastatin Calcium (Lipitor -) 10 mg PO HS [facility] Last Admin: 12/15/19 21:26 Dose: 10 mg Documented by: Clotrimazole (Lotrisone Cream (Small Tube)) 1 applic TP BID [facility] Last Admin: 12/16/19 09:03 Dose: 1 applic Documented by: Emollient Ointment (Aquaphor -) 1 applic TP BID [facility] Last Admin: 12/16/19 09:02 Dose: 1 applic Documented by: Furosemide (Lasix Injection -) 40 mg IVPUSH DAILY [facility] Last Admin: 12/16/19 09:01 Dose: 40 mg Documented by: Gabapentin (Neurontin -) 400 mg PO TID [facility] Last Admin: 12/16/19 06:45 Dose: 400 mg Documented by: Ceftriaxone Sodium 2 gm/ (Dextrose) 100 mls @ 100 mls/hr IVPB DAILY [facility]; Protocol Last Admin: 12/16/19 09:01 Dose: 100 mls/hr Documented by: Lactobacillus Acidophilus (Bacid -) 1 tab PO DAILY [facility] Last Admin: 12/16/19 09:02 Dose: 1 tab Documented by: Melatonin (Melatonin) 3 mg PO HS PRN PRN Reason: INSOMNIA Last Admin: 12/14/19 22:55 Dose: 3 mg Documented by: Nystatin (Nystop Powder -) 1 applic TP BID [facility] Last Admin: 12/16/19 09:03 Dose: 1 applic Documented by: Ondansetron HCl (Zofran Injection) 4 mg IVPUSH Q6H PRN PRN Reason: NAUSEA Polyethylene Glycol (Miralax (For Daily Use) -) 17 gm PO DAILY PRN PRN Reason: CONSTIPATION Last Admin: 12/08/19 10:01 Dose: 17 grams Documented by: Potassium Chloride (K-Dur -) 20 meq PO DAILY [facility] Last Admin: 12/16/19 09:02 Dose: 20 meq Documented by: Sertraline HCl (Zoloft -) 25 mg PO DAILY [facility] Last Admin: 12/16/19 09:02 Dose: 25 mg Documented by: Valacyclovir HCl (Valtrex -) 1,000 mg PO TID [facility] Last Admin: 12/16/19 06:45 Dose: 1,000 mg Documented by: Vancomycin HCl (Vancomycin Oral Solution) 125 mg PO Q6HPO [facility] Last Admin: 12/16/19 06:46 Dose: 125 mg Documented by: - Objective Vital Signs: Vital Signs Temperature 98.1 F 12/16/19 06:00 Pulse Rate 100 H 12/16/19 06:00 Respiratory Rate 20 12/16/19 06:00 Blood Pressure 161/90 12/16/19 06:00 O2 Sat by Pulse Oximetry (%) 98 12/16/19 09:00 Cardiovascular: Yes: S1, S2 Respiratory: Yes: Regular, CTA Bilaterally Gastrointestinal: Yes: Normal Bowel Sounds, Soft Labs: CBC, BMP 12/14/19 06:55 12/14/19 06:55 INR, PTT INR 0.97 (0.83-1.09) 12/04/19 07:10 Assessment/Plan - Problems (1) Right foot drop Assessment/Plan: -Kerlix over the foot for pt to be able to flex and extend her foot 10 x Q1H -Nursing staff educated to stimulate the ankle by flexing and extending it during their visits in patients room. -Offload B/L heels w/rolled towels under ankles to minimize risk of heel ulcer formation. Problems reviewed: Yes Code(s): M21.371 - FOOT DROP, RIGHT FOOT (2) Surgical wound infection Assessment/Plan: -Last cultures + MRSA -ID consult appreciated -IV Rocephin -Wound vac-to facilitate granulation tissue, changed by plastic surgery -Skin flap with plastic surgery on 12/06/19 -WBAT on RLE -No ROM, pt must have knee immobilizer on at all times -HBO tx #1 yesterday, next treatment due on [place] 7/6/20 -Furosemide 40 mg po daily Problems reviewed: Yes Code(s): T81.49XA - INFECTION FOLLOWING A PROCEDURE, OTHER SURGICAL SITE, INIT (3) S/P total knee replacement Assessment/Plan: -Seen by orthopedic surgery -Right knee immobilizer -Pain management with tylenol 1g Q6H PRN -NO ROM Right knee (due to patellar ligament rupture). -Increased Neurontin to 300 mg po tid -Vac changes +/- bedside debridements q48-72 hours by plastics team only. -DVT ppx Problems reviewed: Yes Code(s): Z96.659 - PRESENCE OF UNSPECIFIED ARTIFICIAL KNEE JOINT Qualifiers: (4) History of DVT (deep vein thrombosis) Assessment/Plan: -In right popliteal and posterior tibial vein -Eliquis Problems reviewed: Yes Code(s): Z86.718 - PERSONAL HISTORY OF OTHER VENOUS THROMBOSIS AND EMBOLISM (5) VRE (vancomycin resistant enterococcus) culture positive Assessment/Plan: -Completed Unasyn -ID consult appreciated Problems reviewed: Yes Code(s): Z22.39 - CARRIER OF OTHER SPECIFIED BACTERIAL DISEASES Assessment/Plan See problem list Repeat COVID 19 PCR in AM in preparation of d/c on tuesday to 2 sessions of HBO inpatient then Pt to follow up with Dr Craft at the W[facility] center within 1 week. Pt will need HBO outpatient to promote wound healing.
--- NOTE | 2019-12-16 18:44 | PN ---
Progress Note, Physician History of Present Illness: No new complaints. - Current Medication List Current Medications: Active Medications Acetaminophen (Tylenol -) 1,000 mg PO Q6H PRN PRN Reason: PAIN 1-3 Last Admin: 12/16/19 10:10 Dose: 1,000 mg Documented by: Albuterol Sulfate (Ventolin Hfa Inhaler -) 2 puff IH Q4H PRN PRN Reason: SHORT OF BREATH/WHEEZING Amino Acids (Prosource No Carb Liquid Pkt) 30 ml PO BID@0800,1730 [facility] Last Admin: 12/16/19 17:44 Dose: 30 ml Documented by: Apixaban (Eliquis -) 5 mg PO BID [facility] Last Admin: 12/16/19 09:02 Dose: 5 mg Documented by: Atorvastatin Calcium (Lipitor -) 10 mg PO HS [facility] Last Admin: 12/15/19 21:26 Dose: 10 mg Documented by: Clotrimazole (Lotrisone Cream (Small Tube)) 1 applic TP BID [facility] Last Admin: 12/16/19 09:03 Dose: 1 applic Documented by: Emollient Ointment (Aquaphor -) 1 applic TP BID [facility] Last Admin: 12/16/19 09:02 Dose: 1 applic Documented by: Furosemide (Lasix Injection -) 40 mg IVPUSH DAILY [facility] Last Admin: 12/16/19 09:01 Dose: 40 mg Documented by: Gabapentin (Neurontin -) 400 mg PO TID [facility] Last Admin: 12/16/19 13:11 Dose: 400 mg Documented by: Ceftriaxone Sodium 2 gm/ (Dextrose) 100 mls @ 200 mls/hr IVPB DAILY [facility]; Protocol Lactobacillus Acidophilus (Bacid -) 1 tab PO DAILY [facility] Last Admin: 12/16/19 09:02 Dose: 1 tab Documented by: Melatonin (Melatonin) 3 mg PO HS PRN PRN Reason: INSOMNIA Last Admin: 12/14/19 22:55 Dose: 3 mg Documented by: Nystatin (Nystop Powder -) 1 applic TP BID [facility] Last Admin: 12/16/19 09:03 Dose: 1 applic Documented by: Ondansetron HCl (Zofran Injection) 4 mg IVPUSH Q6H PRN PRN Reason: NAUSEA Polyethylene Glycol (Miralax (For Daily Use) -) 17 gm PO DAILY PRN PRN Reason: CONSTIPATION Last Admin: 12/08/19 10:01 Dose: 17 grams Documented by: Potassium Chloride (K-Dur -) 20 meq PO DAILY [facility] Last Admin: 12/16/19 09:02 Dose: 20 meq Documented by: Sertraline HCl (Zoloft -) 25 mg PO DAILY [facility] Last Admin: 12/16/19 09:02 Dose: 25 mg Documented by: Valacyclovir HCl (Valtrex -) 1,000 mg PO TID [facility] Last Admin: 12/16/19 13:11 Dose: 1,000 mg Documented by: Vancomycin HCl (Vancomycin Oral Solution) 125 mg PO Q6HPO [facility] Last Admin: 12/16/19 17:44 Dose: 125 mg Documented by: - Objective Vital Signs: Vital Signs Temperature 997.8 F H 12/16/19 09:00 Pulse Rate 92 H 12/16/19 09:00 Respiratory Rate 20 12/16/19 09:00 Blood Pressure 130/80 12/16/19 09:00 O2 Sat by Pulse Oximetry (%) 98 12/16/19 09:00 Constitutional: Yes: No Distress Cardiovascular: Yes: Regular Rate and Rhythm Respiratory: Yes: Regular Gastrointestinal: Yes: Normal Bowel Sounds, Soft Wound/Incision: Yes: Dressing Dry and Intact, Other (wound vac/immobilizer) Labs: CBC, BMP 12/14/19 06:55 12/14/19 06:55 INR, PTT INR 0.97 (0.83-1.09) 12/04/19 07:10 Problem List - Problems (1) History of DVT (deep vein thrombosis) Code(s): Z86.718 - PERSONAL HISTORY OF OTHER VENOUS THROMBOSIS AND EMBOLISM (2) Right foot drop Code(s): M21.371 - FOOT DROP, RIGHT FOOT (3) Surgical wound infection Code(s): T81.49XA - INFECTION FOLLOWING A PROCEDURE, OTHER SURGICAL SITE, INIT (4) S/P total knee replacement Code(s): Z96.659 - PRESENCE OF UNSPECIFIED ARTIFICIAL KNEE JOINT Qualifiers: (5) COVID-19 Code(s): U07.1 - COVID POSITIVE (6) Inability to ambulate due to knee Code(s): R26.2 - DIFFICULTY IN WALKING, NOT ELSEWHERE CLASSIFIED (7) Yanet-prosthetic fracture around prosthetic knee Code(s): M97.8XXA - PERIPROSTH FRACTURE AROUND OTHER INTERNAL PROSTH JOINT, INIT; Z96.659 - PRESENCE OF UNSPECIFIED ARTIFICIAL KNEE JOINT (8) COPD (chronic obstructive pulmonary disease) Code(s): J44.9 - CHRONIC OBSTRUCTIVE PULMONARY DISEASE, UNSPECIFIED (9) History of revision of total knee arthroplasty Code(s): Z96.659 - PRESENCE OF UNSPECIFIED ARTIFICIAL KNEE JOINT Assessment/Plan Rt tibial wound infection s/p debridement (Previous +MRSA, latest wound culture : Klebsiella) /wound vac Rt TKR s/p revisions Rt patellar rupture UTI Hx C.dif -- continue Ceftriaxone, Vancomycin PO -- afebrile, vitals stable -- Orthopedics follow up
[2019-12-16] MEDS ORDERED: traMADol HCL 50 MG TABLET PO ONE (19:42)
--- NOTE | 2019-12-16 20:43 | PN ---
Progress Note (short form) - Note Progress Note: Post Op Medial Gastrocnemius Flap R Leg Patient experienced :"Burning Pain" in Posterior of R leg "It comes suddenly, sharp and very painful almost like Shingles" She had twice Shingles in the past , she also received shingle Vaccination. Dressing changed Entire leg visualized No Blisters, no wounds Posterior calf swelling decreasing well Feeling touch , sensitive No erythema, no induration, not warm, no mass . Suture line intact, donor site healing well, New dressing done with padded gauze. VAC working well, to be changed tomorrow patient will be discharged and undergo HBO as Out patient Selected Entries 12/16/19 12/16/19 09:00 17:11 Temperature 997.8 F H 98.3 F Respiratory 20 20 Rate Blood Pressure 130/80 140/62 Laboratory Tests 12/03/19 12/04/19 12/06/19 13:45 14:30 10:35 WBC 6.1 21.8 H 12.1 H RBC 3.70 3.71 Hgb 11.8 11.8 Hct 36.0 35.0 MCV 97.3 H 96.6 H 94.4 MCH 31.7 MCHC 33.6 RDW 16.1 H Plt Count 467 H D 447 H D MPV 7.2 L 6.8 L Absolute Neuts (auto) 8.1 H Neutrophils % 66.9 Lymphocytes % 21.9 D Monocytes % 9.3 Eosinophils % 1.3 D 12/14/19 06:55 WBC 4.9 RBC 3.36 L Hgb 10.6 L Hct 31.8 L MCV MCH MCHC RDW Plt Count MPV 6.7 L Absolute Neuts (auto) Neutrophils % Lymphocytes % Monocytes % Eosinophils % Wound care at [facility] : Continue VAC Therapy Continuous at 125mmhg HBO as Out patient FU in wound clinic on Tuesday
[2019-12-16] MEDS: ATORVASTATIN CA 10 MG TABLET (FP) PO SCH (22:15)
[2019-12-17] MEDS: VANCOMYCIN 250 MG/5 ML ORAL SOLUTION PO SCH ×5 (00:07→23:30)
[2019-12-17] MEDS: ACETAMINOPHEN 500 MG TABLET (FP) PO PRN ×4 (00:07→22:18)
[2019-12-17] MEDS: GABAPENTIN 400 MG CAPSULE PO SCH (06:33)
[2019-12-17] MEDS: valACYclovir HCL 500 MG TABLET (FP) PO SCH ×3 (06:33→22:17)
[2019-12-17] MEDS: AMINO ACIDS/PROTEIN HYDROLYS 30 ML LIQUID.PKT PO SCH ×2 (08:58→18:19)
[2019-12-17] MEDS ORDERED: PT OWN MED DRAWER 7, Y5N ONE ×3 (09:15→23:25)
[2019-12-17] MEDS ORDERED: DEXTROSE 5%-WATER 100 ML IVPB ONE (09:16)
[2019-12-17] MEDS: APIXABAN 5 MG TABLET PO SCH ×2 (09:21→22:17)
[2019-12-17] MEDS: POTASSIUM CHLORIDE TABS 20 MEQ TABLET.ER (FP) PO SCH (09:21)
[2019-12-17] MEDS: SERTRALINE HCL 25 MG TABLET (FP) PO SCH (09:21)
[2019-12-17] MEDS: LACTOBACILLUS ACIDOPHILUS 1 TABLET PO SCH (09:21)
[2019-12-17] MEDS: CEFTRIAXONE 2 GM in DEXTROSE 5%-WATER 100 ML IVPB SCH (09:21)
[2019-12-17] MEDS: FUROSEMIDE 40 MG/4 ML INJECTABLE VIAL IVPUSH SCH (09:23)
--- NOTE | 2019-12-17 10:09 | PROC ---
VAC Application - Indications Surgical A decision was made to utilize Negative Pressure VAC Therapy to assist in zohaib- vascularization to wound bed to provide oxygen rich blood to help graft take. Aid in wound closure through promotion of granulation tissue formation. - Wound description Wound location: Other (Right knee) Length (cm): 10 Width (cm): 5 Wound area (sq cm): 50.00 Wound Description: Muscle exposed: No, Tendon exposed: No, Bone exposed: No, Undermining: No - Device VAC Selection: NPT - Procedure Area cleansed. Prepped/draped. Black foam tailored to fit just inside of wound borders to encourage wound contracture. An occlusive dressing applied. Suction disc placed in location so as not to be uncomfortable for the patient or cause any pressure point (foam bridge to hip as necessary). Good seal as verified by complete foam collapse and no leak on unit monitor. Pressure set to 125 mmHg, continuous. If using Veraflo: Settings: Soak time: 2 mins Volume: 8mL Frequency: Every 2 hours Dressing changes: M-W-F - CPT Code CPT code: [id number] >50 sq cm
--- NOTE | 2019-12-17 10:34 | PN ---
Progress Note, Physician History of Present Illness: stable no new issues - Current Medication List Current Medications: Active Medications Acetaminophen (Tylenol -) 1,000 mg PO Q6H PRN PRN Reason: PAIN 1-3 Last Admin: 12/17/19 06:33 Dose: 1,000 mg Documented by: Albuterol Sulfate (Ventolin Hfa Inhaler -) 2 puff IH Q4H PRN PRN Reason: SHORT OF BREATH/WHEEZING Amino Acids (Prosource No Carb Liquid Pkt) 30 ml PO BID@0800,1730 [facility] Last Admin: 12/17/19 08:58 Dose: 30 ml Documented by: Apixaban (Eliquis -) 5 mg PO BID [facility] Last Admin: 12/17/19 09:21 Dose: 5 mg Documented by: Atorvastatin Calcium (Lipitor -) 10 mg PO HS [facility] Last Admin: 12/16/19 22:15 Dose: 10 mg Documented by: Clotrimazole (Lotrisone Cream (Small Tube)) 1 applic TP BID [facility] Last Admin: 12/16/19 22:17 Dose: 1 applic Documented by: Emollient Ointment (Aquaphor -) 1 applic TP BID [facility] Last Admin: 12/16/19 22:17 Dose: 1 applic Documented by: Furosemide (Lasix Injection -) 40 mg IVPUSH DAILY [facility] Last Admin: 12/17/19 09:23 Dose: 40 mg Documented by: Gabapentin (Neurontin -) 400 mg PO TID [facility] Last Admin: 12/17/19 06:33 Dose: 400 mg Documented by: Ceftriaxone Sodium 2 gm/ (Dextrose) 100 mls @ 200 mls/hr IVPB DAILY [facility]; Protocol Last Admin: 12/17/19 09:21 Dose: 200 mls/hr Documented by: Lactobacillus Acidophilus (Bacid -) 1 tab PO DAILY [facility] Last Admin: 12/17/19 09:21 Dose: 1 tab Documented by: Melatonin (Melatonin) 3 mg PO HS PRN PRN Reason: INSOMNIA Last Admin: 12/14/19 22:55 Dose: 3 mg Documented by: Nystatin (Nystop Powder -) 1 applic TP BID [facility] Last Admin: 12/16/19 22:18 Dose: 1 applic Documented by: Ondansetron HCl (Zofran Injection) 4 mg IVPUSH Q6H PRN PRN Reason: NAUSEA Polyethylene Glycol (Miralax (For Daily Use) -) 17 gm PO DAILY PRN PRN Reason: CONSTIPATION Last Admin: 12/08/19 10:01 Dose: 17 grams Documented by: Potassium Chloride (K-Dur -) 20 meq PO DAILY [facility] Last Admin: 12/17/19 09:21 Dose: 20 meq Documented by: Sertraline HCl (Zoloft -) 25 mg PO DAILY [facility] Last Admin: 12/17/19 09:21 Dose: 25 mg Documented by: Valacyclovir HCl (Valtrex -) 1,000 mg PO TID [facility] Last Admin: 12/17/19 06:33 Dose: 1,000 mg Documented by: Vancomycin HCl (Vancomycin Oral Solution) 125 mg PO Q6HPO [facility] Last Admin: 12/17/19 06:32 Dose: 125 mg Documented by: - Objective Vital Signs: Vital Signs Temperature 98.8 F 12/17/19 06:00 Pulse Rate 76 12/17/19 06:00 Respiratory Rate 18 12/17/19 06:00 Blood Pressure 134/72 12/17/19 06:00 O2 Sat by Pulse Oximetry (%) 98 12/16/19 21:00 Constitutional: Yes: No Distress, Calm Cardiovascular: Yes: S1, S2 Respiratory: Yes: Regular, CTA Bilaterally Gastrointestinal: Yes: Normal Bowel Sounds, Soft Musculoskeletal: Yes: WNL Extremities: Yes: Other Wound/Incision: Yes: Dressing Dry and Intact Neurological: Yes: Alert, Oriented Psychiatric: Yes: Alert, Oriented Labs: CBC, BMP 12/14/19 06:55 12/14/19 06:55 INR, PTT INR 0.97 (0.83-1.09) 12/04/19 07:10 Assessment/Plan Problem List - Problems (1) History of DVT (deep vein thrombosis) Code(s): Z86.718 - PERSONAL HISTORY OF OTHER VENOUS THROMBOSIS AND EMBOLISM (2) Right foot drop Code(s): M21.371 - FOOT DROP, RIGHT FOOT (3) Surgical wound infection Code(s): T81.49XA - INFECTION FOLLOWING A PROCEDURE, OTHER SURGICAL SITE, INIT (4) S/P total knee replacement Code(s): Z96.659 - PRESENCE OF UNSPECIFIED ARTIFICIAL KNEE JOINT Qualifiers: (5) COVID-19 Code(s): U07.1 - COVID POSITIVE (6) Hypertension Code(s): I10 - ESSENTIAL (PRIMARY) HYPERTENSION (7) Inability to ambulate due to knee Code(s): R26.2 - DIFFICULTY IN WALKING, NOT ELSEWHERE CLASSIFIED (8) Yanet-prosthetic fracture around prosthetic knee Code(s): M97.8XXA - PERIPROSTH FRACTURE AROUND OTHER INTERNAL PROSTH JOINT, INIT; Z96.659 - PRESENCE OF UNSPECIFIED ARTIFICIAL KNEE JOINT (9) COPD (chronic obstructive pulmonary disease) Code(s): J44.9 - CHRONIC OBSTRUCTIVE PULMONARY DISEASE, UNSPECIFIED (10) History of revision of total knee arthroplasty Code(s): Z96.659 - PRESENCE OF UNSPECIFIED ARTIFICIAL KNEE JOINT Assessment/Plan 79 y.o. female with PMH of HTN, COPD, Rt pop DVT, COVID, s/p revision of RT TKR and debridements with tibial wound/hardware exposure and possible patellar rupture readmitted for further management Rt tibial wound infection s/p debridement +MRSA /wound vac Rt TKR s/p revisions Possible Rt patellar rupture shingles continue abx ceftriaxone 2g daily complete the course complete the abx course complete valtrex course
--- NOTE | 2019-12-17 10:37 | PN ---
Progress Note, Physician Chief Complaint: Right knee wound infection History of Present Illness: NAD, in bed C/O RLE burning, improves with movement, Denies N/V/D at this tiem As per pt , she was seeing hematology/oncology for Multiple Myeloma? Has seen Dr Lovelace in the past. GI Dr Orozco, last EGD+ Colonoscopy earlier this year at [facility] s/p right knee I&D, removal of hardware, polyethylene liner exchange (orthopaedics) and medial gastrocnemius flap wound coverage (plastics) Seen by speech pathology- MBS done-tolerating chopped diet with thin liquids, will advance to soft diet. Going for HBO treatment at this time - Current Medication List Current Medications: Active Medications Acetaminophen (Tylenol -) 1,000 mg PO Q6H PRN PRN Reason: PAIN 1-3 Last Admin: 12/17/19 06:33 Dose: 1,000 mg Documented by: Albuterol Sulfate (Ventolin Hfa Inhaler -) 2 puff IH Q4H PRN PRN Reason: SHORT OF BREATH/WHEEZING Amino Acids (Prosource No Carb Liquid Pkt) 30 ml PO BID@0800,1730 [facility] Last Admin: 12/17/19 08:58 Dose: 30 ml Documented by: Apixaban (Eliquis -) 5 mg PO BID [facility] Last Admin: 12/17/19 09:21 Dose: 5 mg Documented by: Atorvastatin Calcium (Lipitor -) 10 mg PO HS [facility] Last Admin: 12/16/19 22:15 Dose: 10 mg Documented by: Clotrimazole (Lotrisone Cream (Small Tube)) 1 applic TP BID [facility] Last Admin: 12/16/19 22:17 Dose: 1 applic Documented by: Emollient Ointment (Aquaphor -) 1 applic TP BID [facility] Last Admin: 12/16/19 22:17 Dose: 1 applic Documented by: Furosemide (Lasix Injection -) 40 mg IVPUSH DAILY [facility] Last Admin: 12/17/19 09:23 Dose: 40 mg Documented by: Gabapentin (Neurontin -) 400 mg PO TID [facility] Last Admin: 12/17/19 06:33 Dose: 400 mg Documented by: Ceftriaxone Sodium 2 gm/ (Dextrose) 100 mls @ 200 mls/hr IVPB DAILY [facility]; Protocol Last Admin: 12/17/19 09:21 Dose: 200 mls/hr Documented by: Lactobacillus Acidophilus (Bacid -) 1 tab PO DAILY [facility] Last Admin: 12/17/19 09:21 Dose: 1 tab Documented by: Melatonin (Melatonin) 3 mg PO HS PRN PRN Reason: INSOMNIA Last Admin: 12/14/19 22:55 Dose: 3 mg Documented by: Nystatin (Nystop Powder -) 1 applic TP BID [facility] Last Admin: 12/16/19 22:18 Dose: 1 applic Documented by: Ondansetron HCl (Zofran Injection) 4 mg IVPUSH Q6H PRN PRN Reason: NAUSEA Polyethylene Glycol (Miralax (For Daily Use) -) 17 gm PO DAILY PRN PRN Reason: CONSTIPATION Last Admin: 12/08/19 10:01 Dose: 17 grams Documented by: Potassium Chloride (K-Dur -) 20 meq PO DAILY [facility] Last Admin: 12/17/19 09:21 Dose: 20 meq Documented by: Sertraline HCl (Zoloft -) 25 mg PO DAILY [facility] Last Admin: 12/17/19 09:21 Dose: 25 mg Documented by: Valacyclovir HCl (Valtrex -) 1,000 mg PO TID [facility] Last Admin: 12/17/19 06:33 Dose: 1,000 mg Documented by: Vancomycin HCl (Vancomycin Oral Solution) 125 mg PO Q6HPO [facility] Last Admin: 12/17/19 06:32 Dose: 125 mg Documented by: - Objective Vital Signs: Vital Signs Temperature 98.8 F 12/17/19 06:00 Pulse Rate 76 12/17/19 06:00 Respiratory Rate 18 12/17/19 06:00 Blood Pressure 134/72 12/17/19 06:00 O2 Sat by Pulse Oximetry (%) 98 07/05/20 21:00 Constitutional: Yes: Well Nourished, No Distress, Calm Cardiovascular: Yes: Regular Rate and Rhythm Respiratory: Yes: Regular, CTA Bilaterally Gastrointestinal: Yes: Normal Bowel Sounds, Soft Musculoskeletal: Yes: Muscle Weakness Extremities: Yes: Other (Right knee immobilizer) Edema: No Peripheral Pulses WNL: Yes Neurological: Yes: Alert, Oriented Psychiatric: Yes: Alert, Oriented Labs: CBC, BMP 12/14/19 06:55 12/14/19 06:55 INR, PTT INR 0.97 (0.83-1.09) 12/04/19 07:10 Problem List - Problems (1) Right foot drop Assessment/Plan: -Kerlix over the foot for pt to be able to flex and extend her foot 10 x Q1H -Nursing staff educated to stimulate the ankle by flexing and extending it during their visits in patients room. -Offload B/L heels w/rolled towels under ankles to minimize risk of heel ulcer formation. Problems reviewed: Yes Code(s): M21.371 - FOOT DROP, RIGHT FOOT (2) Surgical wound infection Assessment/Plan: -Last cultures + MRSA -ID consult appreciated -IV Rocephin -Wound vac-to facilitate granulation tissue, changed by plastic surgery -Skin flap with plastic surgery on 12/06/19 -WBAT on RLE -No ROM, pt must have knee immobilizer on at all times -HBO tx #1 yesterday, next treatment due on Tuesday12/17/19 -Furosemide 40 mg po daily Problems reviewed: Yes Code(s): T81.49XA - INFECTION FOLLOWING A PROCEDURE, OTHER SURGICAL SITE, INIT (3) S/P total knee replacement Assessment/Plan: -Seen by orthopedic surgery -Right knee immobilizer -Pain management with tylenol 1g Q6H PRN -NO ROM Right knee (due to patellar ligament rupture). -Increased Neurontin to 300 mg po tid -Vac changes +/- bedside debridements q48-72 hours by plastics team only. -DVT ppx Problems reviewed: Yes Code(s): Z96.659 - PRESENCE OF UNSPECIFIED ARTIFICIAL KNEE JOINT Qualifiers: (4) History of DVT (deep vein thrombosis) Assessment/Plan: -In right popliteal and posterior tibial vein -Eliquis Problems reviewed: Yes Code(s): Z86.718 - PERSONAL HISTORY OF OTHER VENOUS THROMBOSIS AND EMBOLISM (5) VRE (vancomycin resistant enterococcus) culture positive Assessment/Plan: -Completed Unasyn -ID consult appreciated Problems reviewed: Yes Code(s): Z22.39 - CARRIER OF OTHER SPECIFIED BACTERIAL DISEASES (6) Skin graft (allograft) (autograft) failure Assessment/Plan: -Followed by Plastic surgery -Wound Vac dressing changes Q72H -HBO treatment x 2 while in patient and then o/p -Follow up with Plastic surgery o/p on wednesdays,, first appt scheduled for 12/19/19 at 9:30 am -Pt will need 30 visits, no weekends or holidays for HBO treatment -Precertification form to be faxed by [facility] at F[address] , [place] # [id number] Problems reviewed: Yes Code(s): T86.821 - SKIN GRAFT (ALLOGRAFT) (AUTOGRAFT) FAILURE Assessment/Plan See problem list Repeat COVID 19 PCR pending in preparation of d/c on Tuesday to [facility] Spoke to son Masoud, who is in agreement of d/c to [facility].
--- NOTE | 2019-12-17 11:12 | PN ---
Progress Note, FRAME FIXER - Note Progress Note: Selected Entries 12/16/19 12/16/19 12/16/19 06:00 09:00 09:55 Breakfast Diet Tolerated Lunch Skin Risk Level Moderate Risk Supper Total Score - 13 Skin Risk Assessment Temperature 98.1 F 997.8 F H Blood Pressure 161/90 130/80 12/16/19 12/16/19 12/16/19 15:00 17:11 20:13 Breakfast 50% Diet Tolerated Fair Fair Lunch 50% Skin Risk Level Supper 50% Total Score - Skin Risk Assessment Temperature 98.3 F Blood Pressure 140/62 12/16/19 12/16/19 12/17/19 22:00 22:20 06:00 Breakfast Diet Tolerated Lunch Skin Risk Level Moderate Risk Supper Total Score - 13 Skin Risk Assessment Temperature 98.6 F 98.8 F Blood Pressure 147/76 134/72 Laboratory Tests 12/14/19 06:55 WBC 4.9 On chopped/thin liquids Upgrade? add more soft foods
[2019-12-17] MEDS: MINERAL OIL/PET HY-PHL TOPICAL OINTMENT 454 GM JAR TP SCH ×2 (11:54→22:18)
[2019-12-17] MEDS: CLOTRIMAZOLE/BETAMET DIPROP 15 GM TUBE TP SCH ×2 (11:55→22:18)
[2019-12-17] MEDS: NYSTATIN POWDER 100,000 UNITS/GM - 15 GM TOPICAL POWDER TP SCH ×2 (11:55→22:18)
[2019-12-17] MEDS: GABAPENTIN 300 MG CAPSULE PO SCH ×2 (16:57→22:17)
[2019-12-17] MEDS: ATORVASTATIN CA 10 MG TABLET (FP) PO SCH (22:17)
[2019-12-17] MEDS: traMADol HCL 50 MG TABLET PO PRN (23:30)
[2019-12-17] MEDS: MELATONIN 1 MG TABLET PO PRN (23:31)
[2019-12-18] MEDS: ACETAMINOPHEN 500 MG TABLET (FP) PO PRN (04:01)
[2019-12-18] MEDS: valACYclovir HCL 500 MG TABLET (FP) PO SCH ×3 (06:35→21:51)
[2019-12-18] MEDS: VANCOMYCIN 250 MG/5 ML ORAL SOLUTION PO SCH ×4 (06:35→23:05)
[2019-12-18] MEDS: GABAPENTIN 300 MG CAPSULE PO SCH ×3 (06:36→21:51)
[2019-12-18] MEDS: traMADol HCL 50 MG TABLET PO PRN ×2 (06:48→13:15)
[2019-12-18] MEDS ORDERED: PT OWN MED DRAWER 7, Y5N ONE ×2 (09:29→23:01)
[2019-12-18] MEDS ORDERED: DEXTROSE 5%-WATER 100 ML IVPB ONE (09:30)
[2019-12-18] MEDS: AMINO ACIDS/PROTEIN HYDROLYS 30 ML LIQUID.PKT PO SCH ×2 (09:35→17:57)
[2019-12-18] MEDS: APIXABAN 5 MG TABLET PO SCH ×2 (09:35→21:52)
[2019-12-18] MEDS: POTASSIUM CHLORIDE TABS 20 MEQ TABLET.ER (FP) PO SCH (09:35)
[2019-12-18] MEDS: CEFTRIAXONE 2 GM in DEXTROSE 5%-WATER 100 ML IVPB SCH (09:35)
[2019-12-18] MEDS: SERTRALINE HCL 25 MG TABLET (FP) PO SCH (09:35)
[2019-12-18] MEDS: FUROSEMIDE 40 MG/4 ML INJECTABLE VIAL IVPUSH SCH (09:36)
[2019-12-18] MEDS: MINERAL OIL/PET HY-PHL TOPICAL OINTMENT 454 GM JAR TP SCH ×2 (09:36→21:50)
[2019-12-18] MEDS: CLOTRIMAZOLE/BETAMET DIPROP 15 GM TUBE TP SCH ×2 (09:36→21:51)
[2019-12-18] MEDS: NYSTATIN POWDER 100,000 UNITS/GM - 15 GM TOPICAL POWDER TP SCH ×2 (09:36→21:51)
[2019-12-18] MEDS: LACTOBACILLUS ACIDOPHILUS 1 TABLET PO SCH (09:36)
--- NOTE | 2019-12-18 11:26 | PN ---
Progress Note, Physician History of Present Illness: stable no new issues - Current Medication List Current Medications: Active Medications Acetaminophen (Tylenol -) 1,000 mg PO Q6H PRN PRN Reason: PAIN 1-3 Last Admin: 12/18/19 04:01 Dose: 1,000 mg Documented by: Albuterol Sulfate (Ventolin Hfa Inhaler -) 2 puff IH Q4H PRN PRN Reason: SHORT OF BREATH/WHEEZING Amino Acids (Prosource No Carb Liquid Pkt) 30 ml PO BID@0800,1730 [facility] Last Admin: 12/18/19 09:35 Dose: 30 ml Documented by: Apixaban (Eliquis -) 5 mg PO BID [facility] Last Admin: 12/18/19 09:35 Dose: 5 mg Documented by: Atorvastatin Calcium (Lipitor -) 10 mg PO HS [facility] Last Admin: 12/17/19 22:17 Dose: 10 mg Documented by: Clotrimazole (Lotrisone Cream (Small Tube)) 1 applic TP BID [facility] Last Admin: 12/18/19 09:36 Dose: 1 applic Documented by: Emollient Ointment (Aquaphor -) 1 applic TP BID [facility] Last Admin: 12/18/19 09:36 Dose: 1 applic Documented by: Furosemide (Lasix Injection -) 40 mg IVPUSH DAILY [facility] Last Admin: 12/18/19 09:36 Dose: 40 mg Documented by: Gabapentin (Neurontin -) 600 mg PO TID [facility] Last Admin: 12/18/19 06:36 Dose: 600 mg Documented by: Ceftriaxone Sodium 2 gm/ (Dextrose) 100 mls @ 200 mls/hr IVPB DAILY [facility]; Protocol Last Admin: 12/18/19 09:35 Dose: 200 mls/hr Documented by: Lactobacillus Acidophilus (Bacid -) 1 tab PO DAILY [facility] Last Admin: 12/18/19 09:36 Dose: 1 tab Documented by: Melatonin (Melatonin) 3 mg PO HS PRN PRN Reason: INSOMNIA Last Admin: 12/17/19 23:31 Dose: 3 mg Documented by: Nystatin (Nystop Powder -) 1 applic TP BID [facility] Last Admin: 12/18/19 09:36 Dose: 1 applic Documented by: Ondansetron HCl (Zofran Injection) 4 mg IVPUSH Q6H PRN PRN Reason: NAUSEA Polyethylene Glycol (Miralax (For Daily Use) -) 17 gm PO DAILY PRN PRN Reason: CONSTIPATION Last Admin: 12/08/19 10:01 Dose: 17 grams Documented by: Potassium Chloride (K-Dur -) 20 meq PO DAILY [facility] Last Admin: 12/18/19 09:35 Dose: 20 meq Documented by: Sertraline HCl (Zoloft -) 25 mg PO DAILY [facility] Last Admin: 12/18/19 09:35 Dose: 25 mg Documented by: Tramadol HCl (Ultram -) 50 mg PO Q6H PRN PRN Reason: PAIN LEVEL 6-10 Last Admin: 12/18/19 06:48 Dose: 50 mg Documented by: Valacyclovir HCl (Valtrex -) 1,000 mg PO TID [facility] Last Admin: 12/18/19 06:35 Dose: 1,000 mg Documented by: Vancomycin HCl (Vancomycin Oral Solution) 125 mg PO Q6HPO [facility] Last Admin: 12/18/19 06:35 Dose: 125 mg Documented by: - Objective Vital Signs: Vital Signs Temperature 97.7 F 12/18/19 06:36 Pulse Rate 87 12/18/19 06:36 Respiratory Rate 18 12/18/19 06:36 Blood Pressure 121/69 12/18/19 06:36 O2 Sat by Pulse Oximetry (%) 98 12/16/19 21:00 Constitutional: Yes: No Distress, Calm Cardiovascular: Yes: S1, S2 Respiratory: Yes: Regular, CTA Bilaterally Gastrointestinal: Yes: Normal Bowel Sounds, Soft Musculoskeletal: Yes: WNL Extremities: Yes: Other Wound/Incision: Yes: Dressing Dry and Intact Neurological: Yes: Alert, Oriented Psychiatric: Yes: Alert, Oriented Labs: CBC, BMP 12/14/19 06:55 12/14/19 06:55 INR, PTT INR 0.97 (0.83-1.09) 12/04/19 07:10 Assessment/Plan Problem List - Problems (1) History of DVT (deep vein thrombosis) Code(s): Z86.718 - PERSONAL HISTORY OF OTHER VENOUS THROMBOSIS AND EMBOLISM (2) Right foot drop Code(s): M21.371 - FOOT DROP, RIGHT FOOT (3) Surgical wound infection Code(s): T81.49XA - INFECTION FOLLOWING A PROCEDURE, OTHER SURGICAL SITE, INIT (4) S/P total knee replacement Code(s): Z96.659 - PRESENCE OF UNSPECIFIED ARTIFICIAL KNEE JOINT Qualifiers: (5) COVID-19 Code(s): U07.1 - COVID POSITIVE (6) Hypertension Code(s): I10 - ESSENTIAL (PRIMARY) HYPERTENSION (7) Inability to ambulate due to knee Code(s): R26.2 - DIFFICULTY IN WALKING, NOT ELSEWHERE CLASSIFIED (8) Yanet-prosthetic fracture around prosthetic knee Code(s): M97.8XXA - PERIPROSTH FRACTURE AROUND OTHER INTERNAL PROSTH JOINT, INIT; Z96.659 - PRESENCE OF UNSPECIFIED ARTIFICIAL KNEE JOINT (9) COPD (chronic obstructive pulmonary disease) Code(s): J44.9 - CHRONIC OBSTRUCTIVE PULMONARY DISEASE, UNSPECIFIED (10) History of revision of total knee arthroplasty Code(s): Z96.659 - PRESENCE OF UNSPECIFIED ARTIFICIAL KNEE JOINT Assessment/Plan 79 y.o. female with PMH of HTN, COPD, Rt pop DVT, COVID, s/p revision of RT TKR and debridements with tibial wound/hardware exposure and possible patellar rupture readmitted for further management Rt tibial wound infection s/p debridement +MRSA /wound vac Rt TKR s/p revisions Possible Rt patellar rupture shingles continue abx ceftriaxone 2g daily complete the course complete the abx course
--- NOTE | 2019-12-18 11:40 | DS ---
Physical Examination Vital Signs: Vital Signs Temperature 97.7 F 12/18/19 06:36 Pulse Rate 87 12/18/19 06:36 Respiratory Rate 18 12/18/19 06:36 Blood Pressure 121/69 12/18/19 06:36 O2 Sat by Pulse Oximetry (%) 98 12/16/19 21:00 Findings/Remarks: The patient is a 79 yo f w/ PMH HTN, COPD (no on home 02) recent DVT of right popliteal deonte (on eliquis), recent ortho surgeries (08/21 and 08/29), previous COVID 19 diagnosis presented to the ED right tibial tubercle wound and concern for hardware exposure/open wound, s/p complex revision right total knee replacement/reconstruction 08/30/19. She was brought to the ED from [facility] for further management of her chronic wound. Patient currently has no major complaints. (1) Right foot drop Assessment/Plan: -Kerlix over the foot for pt to be able to flex and extend her foot 10 x Q1H -Nursing staff educated to stimulate the ankle by flexing and extending it during their visits in patients room. -Offload B/L heels w/rolled towels under ankles to minimize risk of heel ulcer formation. Problems reviewed: Yes Code(s): M21.371 - FOOT DROP, RIGHT FOOT (2) Surgical wound infection Assessment/Plan: -Last cultures + MRSA -ID consult appreciated -IV Rocephin -Wound vac-to facilitate granulation tissue, changed by plastic surgery -Skin flap with plastic surgery on 12/06/19 -WBAT on RLE -No ROM, pt must have knee immobilizer on at all times -HBO 2 treatments done so far. 1 more session of HBO today -Will need 30 sessions of HBO treatment -, no holidays, no weekends -Furosemide 40 mg po daily for RLE swelling Problems reviewed: Yes Code(s): T81.49XA - INFECTION FOLLOWING A PROCEDURE, OTHER SURGICAL SITE, INIT (3) S/P total knee replacement Assessment/Plan: -Seen by orthopedic surgery -Right knee immobilizer -Pain management with tylenol 1g Q6H PRN -NO ROM Right knee (due to patellar ligament rupture). -Increased Neurontin to 600 mg po tid -Increase Tramadol to 100 mg Q6H PRN -Vac changes +/- bedside debridements q48-72 hours by plastics team only. -DVT ppx Problems reviewed: Yes Code(s): Z96.659 - PRESENCE OF UNSPECIFIED ARTIFICIAL KNEE JOINT Qualifiers: (4) History of DVT (deep vein thrombosis) Assessment/Plan: -In right popliteal and posterior tibial vein -Eliquis Problems reviewed: Yes Code(s): Z86.718 - PERSONAL HISTORY OF OTHER VENOUS THROMBOSIS AND EMBOLISM (5) VRE (vancomycin resistant enterococcus) culture positive Assessment/Plan: -Completed Unasyn -ID consult appreciated Problems reviewed: Yes Code(s): Z22.39 - CARRIER OF OTHER SPECIFIED BACTERIAL DISEASES (6) Skin graft (allograft) (autograft) failure Assessment/Plan: -Followed by Plastic surgery -Wound Vac dressing changes Q72H -HBO treatment x 3 while in patient and then o/p -Follow up with Plastic surgery o/p on Wednesdays,, first appt scheduled for 12/19/19 at 9:30 am -Pt will need 30 visits, no weekends or holidays for HBO treatment -Pre-certification form started and faxed by [facility] at F# , Reference # [id number] Problems reviewed: Yes Code(s): T86.821 - SKIN GRAFT (ALLOGRAFT) (AUTOGRAFT) FAILURE Assessment/Plan Repeat COVID 19 PCR Negative. Spoke to son Masoud, who is in agreement of d/c to [facility]. Constitutional: Yes: Well Nourished, No Distress, Calm Cardiovascular: Yes: Regular Rate and Rhythm Respiratory: Yes: Regular, CTA Bilaterally Gastrointestinal: Yes: Normal Bowel Sounds, Soft Renal/: Yes: Incontinence Musculoskeletal: Yes: Muscle Weakness Extremities: Yes: Other (Right knee immobilizer) Edema: Yes Edema: RLE: 2+ Peripheral Pulses WNL: Yes Wound/Incision: Yes: Dressing Dry and Intact (Right knee,attached to wound vac) Neurological: Yes: Alert, Oriented Psychiatric: Yes: Alert, Oriented Labs: CBC, BMP 12/14/19 06:55 12/14/19 06:55 Discharge Summary Problems reviewed: Yes Reason For Visit: POST OP WOUND INFECTION STATUS POST TOTAL KNEE REP Current Active Problems Anxiety about health (Acute) History of DVT (deep vein thrombosis) (Acute) Infection and inflammatory reaction due to internal right knee prosthesis, subsequent encounter (Acute) Mild depression (Acute) Preop cardiovascular exam (Acute) Right foot drop (Acute) Shingles (Acute) Skin graft (allograft) (autograft) failure (Acute) Surgical wound infection (Acute) VRE (vancomycin resistant enterococcus) culture positive (Acute) S/P total knee replacement (Chronic) Condition: Stable - Instructions Diet, Activity, Other Instructions: -Follow up with Dr Red Craft MD- Plastic surgery ON 12/19/19 AT 9:30 AM. -Dr Craft Office contact: [phone] -Hyperbaric treatment center # [phone] -Follow up with Dr Barron Pardo MD- Orthopedic surgery within 2 weeks, Office number below to make the appointment. In case of emergency his Cell # is [phone] -Check Right heel BID to make sure pt does not form right heel ulcer -Right ankle motion 2 x day -Inspect and document right ankle 2 x day -Wound Vac setting at 125 mm Hg, dressing to be changed Q72H with black foam dressing -If using Veraflo: Settings: Soak time: 2 mins Volume: 8mL Frequency: Every 2 hours -ABSOLUTELY NO ROM ON RIGHT KNEE -RIGHT KNEE IMMOBILIZER AT ALL TIMES -WBAT ON RLE -Ceftriaxone 2 gm IVPB daily for total of 5 weeks, till 01/11/20. -Please draw weekly ESR CRP Referrals: Sukumar Garcia MD [Primary Care Provider] - Vanessa Craft MD [Staff Physician] - Barron Pardo MD [Staff Physician] - Disposition: ALF FACILITY - Home Medications Comprehensive Discharge Medication List: Ambulatory Orders Ascorbic Acid [Vitamin C] 1,000 mg PO DAILY 08/20/19 Apixaban [Eliquis -] 5 mg PO BID tablet 09/03/19 Clotrimazole/Betamet Diprop [Lotrisone -] 1 applic TP BID tube 11/09/19 Amino Acids/Protein Hydrolys [Pro-Stat Awc Liquid Packet] 30 ml PO BID 11/12/19 Atorvastatin Calcium 10 mg PO HS 11/12/19 Ergocalciferol [Vitamin D2] 50,000 unit PO MONTHLY 11/12/19 Melatonin 3 mg PO HS PRN 11/12/19 Acetaminophen [Tylenol .Extra-Strength -] 1,000 mg PO Q6H PRN tablet 12/17/19 Amino Acids/Protein Hydrolys [Prosource No Carb Liquid Pkt] 30 ml PO BID@0800,1730 packet 12/17/19 Apixaban [Eliquis -] 5 mg PO BID tablet 12/17/19 Ceftriaxone [Rocephin -] 2 gm IVPB DAILY #24 vial 12/17/19 Furosemide [Lasix -] 40 mg PO DAILY #30 tablet 12/17/19 Gabapentin [Neurontin -] 600 mg PO TID capsule 12/17/19 Lactobacillus Acidophilus [Bacid -] 1 tab PO DAILY tab 12/17/19 Mineral Oil/Pet Hy-Phl [Aquaphor -] 1 applic TP BID jar 12/17/19 Nystatin Powder [Nystop Powder -] 1 applic TP BID applic 12/17/19 Potassium Chloride [K-Dur -] 20 meq PO DAILY tablet.er 12/17/19 Sertraline HCl [Zoloft -] 25 mg PO DAILY tablet 12/17/19 Vancomycin Oral Solution 125 mg PO Q6HPO 2 Days ml 12/17/19 traMADol HCL [Ultram -] 50 mg PO Q6H PRN tablet 12/17/19 Prescription Drug Monitoring Program (I-STOP) results: I-STOP reviewed and no issues identified
--- NOTE | 2019-12-18 11:45 | PN ---
Progress Note, ENGINEERING DRAWINGS CHECKER - Note Progress Note: Selected Entries 12/16/19 12/16/19 12/16/19 06:00 09:00 09:55 Breakfast Diet Tolerated Lunch Skin Risk Level Moderate Risk Supper Total Score - 13 Skin Risk Assessment Temperature 98.1 F 997.8 F H Blood Pressure 161/90 130/80 12/16/19 12/16/19 12/16/19 15:00 17:11 20:13 Breakfast 50% Diet Tolerated Fair Fair Lunch 50% Skin Risk Level Supper 50% Total Score - Skin Risk Assessment Temperature 98.3 F Blood Pressure 140/62 12/16/19 12/16/19 12/17/19 22:00 22:20 06:00 Breakfast Diet Tolerated Lunch Skin Risk Level Moderate Risk Supper Total Score - 13 Skin Risk Assessment Temperature 98.6 F 98.8 F Blood Pressure 147/76 134/72 Laboratory Tests 12/14/19 06:55 WBC 4.9 Selected Entries 12/17/19 12/17/19 12/17/19 06:00 08:40 17:55 Supper Temperature 98.8 F 98 F 97.6 F Pulse Rate 76 86 Blood Pressure 134/72 149/70 148/81 12/17/19 12/17/19 12/18/19 21:00 22:54 06:36 Supper 75% Temperature 98.2 F 97.7 F Pulse Rate 101 H Blood Pressure 138/77 soft diet/thin liquids Dysphagia resolved
--- NOTE | 2019-12-18 11:53 | PN ---
Progress Note (short form) - Note Progress Note: 79F s/p right knee I&D, removal of hardware, polyethylene liner exchange (orthopaedics) and medial gastrocnemius flap wound coverage (plastics) POD #14. Pain well controlled at present. No acute events overnight. Pt. denies overnight history of headaches, chest pain, shortness of breath, nausea, vomiting, chills, & sweats. (+) Voiding; (+) Flatus; (+) BM. Pt. is receiving PROM R ankle (d/t to foot drop) to mitigate risk for Achilles contracture. (+) R heel offloaded on rolled towel. Custom function AFO & offloading night time AFO splints at bedside. (+) RLE knee immobilizer in place locked in extension. All labs and vitals reviewed. PE: AAO x 3, NAD. R Knee: Wound vac intact & in place. Wounds otherwise clean, dry, & healing. RLE M: HF/KF/KE/ADF 5/5; ADF/GTE 1/5 (I.E. foot drop). RLE S: Femoral, Saphenous, Lateral Sural, Tibial Nerves 2/2; Superficial Peroneal Nerve 1/2; Deep Peroneal Nerve 0/2. 79F s/p right knee I&D, removal of hardware, polyethylene liner exchange (orthopaedics) and medial gastrocnemius flap wound coverage (plastics) POD #14. -Pain control. -DVT PPx: -Chemical: Eliquis 5mg PO qD. -Mechanical: LLE SORAYA's, SCD's. -Incentive spirometry. -PT/OT/Rehab, OOBTC at least twice daily. -WBAT RLE in Cotton brace locked in extension; NO RIGHT KNEE RANGE OF MOTION. -Offload B/L heels w/rolled towels under ankles to minimize risk of heel ulcer formation. -RLE AFO splint at all times; offloading R AFO splint to minimize heel ulcer formation risk. -Continue antibiotics and anti-viral medication as per Dr. Mcclure (ID team). -Care as per primary medical & plastics teams. -Discharge planning: Rehab facility w/strict attention to right heel mobilization (TID ankle PROM) to minimize risk of Achilles contracture; pt. will need co-cordinate hyperbaric therapy to maximize success of flap incorporation and wound healing as outlined by plastic surgery team (Dr. Craft); pt. to follow-up in [facility] outpatient clinic in 2-3 weeks, call for appointment: . Fitz Pardo MD (Orthopaedic Surgery).
--- NOTE | 2019-12-18 14:38 | PN ---
Progress Note (short form) - Note Progress Note: Patient was in less pain due to the analgesic that was increased per patient. We reviewed the treatments given to her-Mindfulness Based Stress Reduction to distract her from the painful limb and relaxation exercise to induce general relaxation and pain reduction. It is recommended upon discharge that she continue to receive treatments from a participating provider in her t Medicare plan. The patient was appreciative for the sessions. Thank you for the kind referral. Problem List - Problems (1) Mild depression Code(s): F32.0 - MAJOR DEPRESSIVE DISORDER, SINGLE EPISODE, MILD (2) Anxiety about health Code(s): F41.8 - OTHER SPECIFIED ANXIETY DISORDERS
[2019-12-18] MEDS: ATORVASTATIN CA 10 MG TABLET (FP) PO SCH (21:51)
[2019-12-18] MEDS: MELATONIN 1 MG TABLET PO PRN (23:04)
[2019-12-19] MEDS ORDERED: PT OWN MED DRAWER 7, Y5N ONE ×2 (05:28→09:31)
[2019-12-19] MEDS: GABAPENTIN 300 MG CAPSULE PO SCH ×2 (05:32→14:57)
[2019-12-19] MEDS: valACYclovir HCL 500 MG TABLET (FP) PO SCH (05:32)
[2019-12-19] MEDS: VANCOMYCIN 250 MG/5 ML ORAL SOLUTION PO SCH ×3 (05:32→18:07)
[2019-12-19] MEDS ORDERED: DEXTROSE 5%-WATER 100 ML IVPB ONE (09:31)
[2019-12-19] MEDS: FUROSEMIDE 40 MG/4 ML INJECTABLE VIAL IVPUSH SCH (09:36)
[2019-12-19] MEDS: APIXABAN 5 MG TABLET PO SCH (09:36)
[2019-12-19] MEDS: CEFTRIAXONE 2 GM in DEXTROSE 5%-WATER 100 ML IVPB SCH (09:36)
[2019-12-19] MEDS: POTASSIUM CHLORIDE TABS 20 MEQ TABLET.ER (FP) PO SCH (09:36)
[2019-12-19] MEDS: CLOTRIMAZOLE/BETAMET DIPROP 15 GM TUBE TP SCH (09:37)
[2019-12-19] MEDS: MINERAL OIL/PET HY-PHL TOPICAL OINTMENT 454 GM JAR TP SCH (09:37)
[2019-12-19] MEDS: AMINO ACIDS/PROTEIN HYDROLYS 30 ML LIQUID.PKT PO SCH ×2 (09:37→18:06)
[2019-12-19] MEDS: LACTOBACILLUS ACIDOPHILUS 1 TABLET PO SCH (09:37)
[2019-12-19] MEDS: SERTRALINE HCL 25 MG TABLET (FP) PO SCH (09:37)
[2019-12-19] MEDS: NYSTATIN POWDER 100,000 UNITS/GM - 15 GM TOPICAL POWDER TP SCH (09:37)
[2019-12-19] MEDS: traMADol HCL 50 MG TABLET PO PRN (09:45)
--- NOTE | 2019-12-19 10:41 | PN ---
Progress Note, RECREATION PROGRAM SPECIALIST - Note Progress Note: Selected Entries 12/18/19 12/18/19 12/18/19 06:36 10:00 14:00 Breakfast Lunch Temperature 97.7 F 97.6 F 97.9 F Pulse Rate Blood Pressure 121/69 110/60 124/64 12/18/19 12/18/19 12/18/19 15:00 17:19 22:00 Breakfast 75% Lunch 75% Temperature 99 F 99.0 F Pulse Rate Blood Pressure 124/84 128/71 12/19/19 05:32 Breakfast Lunch Temperature Pulse Rate 82 Blood Pressure 117/70 Pt tolerating soft diet/thin liquids Dysphagia resolved HH GERD precautions No further f/u indicated
--- NOTE | 2019-12-19 10:41 | DS ---
Physical Examination Vital Signs: Vital Signs Temperature 98.8 F 12/19/19 05:32 Pulse Rate 82 12/19/19 05:32 Respiratory Rate 18 12/19/19 05:32 Blood Pressure 117/70 12/19/19 05:32 O2 Sat by Pulse Oximetry (%) 96 12/18/19 21:00 Findings/Remarks: (1) Right foot drop Assessment/Plan: -Kerlix over the foot taped over her toes over the socks for pt to be able to flex and extend her foot 10 x Q1H -Nursing staff educated to stimulate the ankle by flexing and extending it during their visits in patients room. -Offload B/L heels w/rolled towels under ankles to minimize risk of heel ulcer formation. Problems reviewed: Yes Code(s): M21.371 - FOOT DROP, RIGHT FOOT (2) Surgical wound infection Assessment/Plan: -Last cultures + MRSA -ID consult appreciated -IV Rocephin in total of 5 weeks, ending on 01/11/20 -Weekly ESR/CRP check -Wound vac-to facilitate granulation tissue, changed by plastic surgery -Skin flap with plastic surgery was done on 12/06/19 -WBAT on RLE -No knee ROM, pt must have knee immobilizer on at all times -HBO 3 treatments done in patients -30 sessions of HBO treatment -, no holidays, no weekends- approved by Medicare [employer] -Furosemide 40 mg po daily for RLE swelling Problems reviewed: Yes Code(s): T81.49XA - INFECTION FOLLOWING A PROCEDURE, OTHER SURGICAL SITE, INIT (3) S/P total knee replacement Assessment/Plan: -Seen by orthopedic surgery -Right knee immobilizer at ALL TIMES. -Pain management with tylenol 1g Q6H PRN -Increased Neurontin to 600 mg po tid -Increase Tramadol to 100 mg Q6H PRN -NO ROM Right knee (due to patellar ligament rupture). -Vac changes +/- bedside Q72 hours with black foam dressing -No need for DVT ppx, pt on Eliquis Problems reviewed: Yes Code(s): Z96.659 - PRESENCE OF UNSPECIFIED ARTIFICIAL KNEE JOINT Qualifiers: (4) History of DVT (deep vein thrombosis) Assessment/Plan: -In right popliteal and posterior tibial vein -Continue Eliquis 5 mg po bid Problems reviewed: Yes Code(s): Z86.718 - PERSONAL HISTORY OF OTHER VENOUS THROMBOSIS AND EMBOLISM (5) VRE (vancomycin resistant enterococcus) culture positive Assessment/Plan: -Completed Unasyn -ID consult appreciated Problems reviewed: Yes Code(s): Z22.39 - CARRIER OF OTHER SPECIFIED BACTERIAL DISEASES (6) Skin graft (allograft) (autograft) failure Assessment/Plan: -Followed by Plastic surgery -Wound Vac dressing changes Q72H -HBO treatment x 3 while inpatient and 30 SESSIONS OUTPATIENT, FIRST APPT FOR 12/20/19 AT 1:30 PM -Follow up with Plastic surgery o/p on Wednesdays, FIRST APPT ON 12/26/19 AT 11 AM -Pt will need 30 visits, no weekends or holidays for HBO treatment -Pre-certification form started and faxed by [facility] at F# , Reference # [id number] Problems reviewed: Yes Code(s): T86.821 - SKIN GRAFT (ALLOGRAFT) (AUTOGRAFT) FAILURE (7) Cdiff Antigen + Pt was treated with vancomycin 125 mg po q6h x 9 days, needs it for 1 more day (4 doses) (8) Right thigh Shingles: Pt was treated with valacyclovir 1 g tid x 7 days Assessment/Plan Repeat COVID 19 PCR Negative done on 12/15/19 Spoke to son Masoud, who is in agreement of d/c to [facility]. Constitutional: Yes: Well Nourished, No Distress, Calm Cardiovascular: Yes: Regular Rate and Rhythm Respiratory: Yes: Regular, CTA Bilaterally Gastrointestinal: Yes: Normal Bowel Sounds, Soft Renal/: Yes: Incontinence Musculoskeletal: Yes: Muscle Weakness Extremities: Yes: Other (RIGHT KNEE IMMOBILIZER) Edema: Yes (RIGHT FOOT +1 [place]) Peripheral Pulses WNL: Yes Wound/Incision: Yes: Dressing Dry and Intact (ATTACHED TO WOUND VAC) Neurological: Yes: Alert, Oriented Psychiatric: Yes: Alert, Oriented Labs: CBC, BMP 12/14/19 06:55 12/14/19 06:55 Discharge Summary Problems reviewed: Yes Reason For Visit: POST OP WOUND INFECTION STATUS POST TOTAL KNEE REP Current Active Problems Anxiety about health (Acute) History of DVT (deep vein thrombosis) (Acute) Infection and inflammatory reaction due to internal right knee prosthesis, subsequent encounter (Acute) Mild depression (Acute) Preop cardiovascular exam (Acute) Right foot drop (Acute) Shingles (Acute) Skin graft (allograft) (autograft) failure (Acute) Surgical wound infection (Acute) VRE (vancomycin resistant enterococcus) culture positive (Acute) S/P total knee replacement (Chronic) Condition: Stable - Instructions Diet, Activity, Other Instructions: -Follow up with Dr Red Craft MD-Plastic surgery o/p on Wednesdays AT [facility], FIRST APPT ON 12/26/19 AT 11 AM -Dr Craft Office contact: [phone] -Pt will need 30 visits, no weekends or holidays for HBO treatment -Received HBO treatment x 3 while inpatient and 30 SESSIONS OUTPATIENT, FIRST APPT FOR 12/20/19 AT 1:30 PM -[place]ic treatment [place] # [phone] -Follow up with Dr Barron Pardo MD- Orthopedic surgery within 2 weeks, Please call the office number below to make the appointment. In case of emergency his Cell # is [phone] -Kerlix over the foot taped over her toes over the socks for pt to be able to flex and extend her foot 10 x Q1H -Check Right heel BID to make sure pt does not form right heel ulcer -Inspect and document right ankle 2 x day -Wound Vac setting at 125 mm Hg, dressing to be changed Q72H with black foam dressing, last dressing change on 12/19/19 -If using Veraflo: Settings: Soak time: 2 mins Volume: 8mL Frequency: Every 2 hours -ABSOLUTELY NO ROM ON RIGHT KNEE -RIGHT KNEE IMMOBILIZER AT ALL TIMES -WBAT ON RLE -Ceftriaxone 2 gm IVPB daily for total of 5 weeks, till 01/11/20. -Please draw weekly ESR CRP Referrals: Sukumar Garcia MD [Primary Care Provider] - Vanessa Craft MD [Staff Physician] - Barron Pardo MD [Staff Physician] - [facility]position[facility] - Home Medications Comprehensive Discharge Medication List: Ambulatory Orders Ascorbic Acid [Vitamin C] 1,000 mg PO DAILY 08/20/19 Apixaban [Eliquis -] 5 mg PO BID tablet 09/03/19 Clotrimazole/Betamet Diprop [Lotrisone -] 1 applic TP BID tube 11/09/19 Amino Acids/Protein Hydrolys [Pro-Stat Awc Liquid Packet] 30 ml PO BID 11/12/19 Atorvastatin Calcium 10 mg PO HS 11/12/19 Ergocalciferol [Vitamin D2] 50,000 unit PO MONTHLY 11/12/19 Melatonin 3 mg PO HS PRN 11/12/19 Acetaminophen [Tylenol .Extra-Strength -] 1,000 mg PO Q6H PRN tablet 12/17/19 Amino Acids/Protein Hydrolys [Prosource No Carb Liquid Pkt] 30 ml PO BID@0800,1730 packet 12/17/19 Apixaban [Eliquis -] 5 mg PO BID tablet 12/17/19 Ceftriaxone [Rocephin -] 2 gm IVPB DAILY #24 vial 12/17/19 Furosemide [Lasix -] 40 mg PO DAILY #30 tablet 12/17/19 Gabapentin [Neurontin -] 600 mg PO TID capsule 12/17/19 Lactobacillus Acidophilus [Bacid -] 1 tab PO DAILY tab 12/17/19 Mineral Oil/Pet Hy-Phl [Aquaphor -] 1 applic TP BID jar 12/17/19 Nystatin Powder [Nystop Powder -] 1 applic TP BID applic 12/17/19 Potassium Chloride [K-Dur -] 20 meq PO DAILY tablet.er 12/17/19 Sertraline HCl [Zoloft -] 25 mg PO DAILY tablet 12/17/19 Vancomycin Oral Solution 125 mg PO Q6HPO 2 Days ml 12/17/19 traMADol HCL [Ultram -] 50 mg PO Q6H PRN tablet 12/17/19
--- NOTE | 2019-12-19 11:06 | PN ---
Progress Note, Physician History of Present Illness: stable no new issues - Current Medication List Current Medications: Active Medications Acetaminophen (Tylenol -) 1,000 mg PO Q6H PRN PRN Reason: PAIN 1-3 Last Admin: 12/18/19 04:01 Dose: 1,000 mg Documented by: Albuterol Sulfate (Ventolin Hfa Inhaler -) 2 puff IH Q4H PRN PRN Reason: SHORT OF BREATH/WHEEZING Amino Acids (Prosource No Carb Liquid Pkt) 30 ml PO BID@0800,1730 [facility] Last Admin: 12/19/19 09:37 Dose: 30 ml Documented by: Apixaban (Eliquis -) 5 mg PO BID [facility] Last Admin: 12/19/19 09:36 Dose: 5 mg Documented by: Atorvastatin Calcium (Lipitor -) 10 mg PO HS [facility] Last Admin: 12/18/19 21:51 Dose: 10 mg Documented by: Clotrimazole (Lotrisone Cream (Small Tube)) 1 applic TP BID [facility] Last Admin: 12/19/19 09:37 Dose: 1 applic Documented by: Emollient Ointment (Aquaphor -) 1 applic TP BID [facility] Last Admin: 12/19/19 09:37 Dose: 1 applic Documented by: Furosemide (Lasix Injection -) 40 mg IVPUSH DAILY [facility] Last Admin: 12/19/19 09:36 Dose: 40 mg Documented by: Gabapentin (Neurontin -) 600 mg PO TID [facility] Last Admin: 12/19/19 05:32 Dose: 600 mg Documented by: Ceftriaxone Sodium 2 gm/ (Dextrose) 100 mls @ 200 mls/hr IVPB DAILY [facility]; Protocol Last Admin: 12/19/19 09:36 Dose: 200 mls/hr Documented by: Lactobacillus Acidophilus (Bacid -) 1 tab PO DAILY [facility] Last Admin: 12/19/19 09:37 Dose: 1 tab Documented by: Melatonin (Melatonin) 3 mg PO HS PRN PRN Reason: INSOMNIA Last Admin: 12/18/19 23:04 Dose: 3 mg Documented by: Nystatin (Nystop Powder -) 1 applic TP BID [facility] Last Admin: 12/19/19 09:37 Dose: 1 applic Documented by: Ondansetron HCl (Zofran Injection) 4 mg IVPUSH Q6H PRN PRN Reason: NAUSEA Polyethylene Glycol (Miralax (For Daily Use) -) 17 gm PO DAILY PRN PRN Reason: CONSTIPATION Last Admin: 12/08/19 10:01 Dose: 17 grams Documented by: Potassium Chloride (K-Dur -) 20 meq PO DAILY [facility] Last Admin: 12/19/19 09:36 Dose: 20 meq Documented by: Sertraline HCl (Zoloft -) 25 mg PO DAILY [facility] Last Admin: 12/19/19 09:37 Dose: 25 mg Documented by: Tramadol HCl (Ultram -) 100 mg PO Q8H PRN PRN Reason: PAIN LEVEL 6-10 Last Admin: 12/19/19 09:45 Dose: 100 mg Documented by: Vancomycin HCl (Vancomycin Oral Solution) 125 mg PO Q6HPO [facility] Last Admin: 12/19/19 05:32 Dose: 125 mg Documented by: - Objective Vital Signs: Vital Signs Temperature 98.8 F 12/19/19 05:32 Pulse Rate 82 12/19/19 05:32 Respiratory Rate 18 12/19/19 05:32 Blood Pressure 117/70 12/19/19 05:32 O2 Sat by Pulse Oximetry (%) 96 12/18/19 21:00 Constitutional: Yes: No Distress, Calm Cardiovascular: Yes: S1, S2 Respiratory: Yes: Regular, CTA Bilaterally Gastrointestinal: Yes: Normal Bowel Sounds, Soft Musculoskeletal: Yes: WNL Extremities: Yes: Other Wound/Incision: Yes: Dressing Dry and Intact Neurological: Yes: Alert, Oriented Psychiatric: Yes: Alert, Oriented Labs: CBC, BMP 12/14/19 06:55 12/14/19 06:55 INR, PTT INR 0.97 (0.83-1.09) 12/04/19 07:10 Assessment/Plan Problem List - Problems (1) History of DVT (deep vein thrombosis) Code(s): Z86.718 - PERSONAL HISTORY OF OTHER VENOUS THROMBOSIS AND EMBOLISM (2) Right foot drop Code(s): M21.371 - FOOT DROP, RIGHT FOOT (3) Surgical wound infection Code(s): T81.49XA - INFECTION FOLLOWING A PROCEDURE, OTHER SURGICAL SITE, INIT (4) S/P total knee replacement Code(s): Z96.659 - PRESENCE OF UNSPECIFIED ARTIFICIAL KNEE JOINT Qualifiers: (5) COVID-19 Code(s): U07.1 - COVID POSITIVE (6) Hypertension Code(s): I10 - ESSENTIAL (PRIMARY) HYPERTENSION (7) Inability to ambulate due to knee Code(s): R26.2 - DIFFICULTY IN WALKING, NOT ELSEWHERE CLASSIFIED (8) Yanet-prosthetic fracture around prosthetic knee Code(s): M97.8XXA - PERIPROSTH FRACTURE AROUND OTHER INTERNAL PROSTH JOINT, INIT; Z96.659 - PRESENCE OF UNSPECIFIED ARTIFICIAL KNEE JOINT (9) COPD (chronic obstructive pulmonary disease) Code(s): J44.9 - CHRONIC OBSTRUCTIVE PULMONARY DISEASE, UNSPECIFIED (10) History of revision of total knee arthroplasty Code(s): Z96.659 - PRESENCE OF UNSPECIFIED ARTIFICIAL KNEE JOINT Assessment/Plan 79 y.o. female with PMH of HTN, COPD, Rt pop DVT, COVID, s/p revision of RT TKR and debridements with tibial wound/hardware exposure and possible patellar rupture readmitted for further management Rt tibial wound infection s/p debridement +MRSA /wound vac Rt TKR s/p revisions Possible Rt patellar rupture shingles continue abx ceftriaxone 2g daily complete the course complete the abx course
--- NOTE | 2019-12-19 13:51 | SURG ---
Surgery Grommet Machine Operator Note Grommet Machine Operator: Manjula Peguero PA-C (Suzy) Date of Service: 12/04/19 Diagnosis: Right knee wound dehiscence, exposure of hardware Procedure: Operation: Right gastrocnemius muscle flap, stsg I was present for the entirety of the operative procedure. For further detail, please refer to operative report. Visit type - Case Type Case Type: Scheduled - Emergency Emergency Visit: No - New patient This patient is new to me today: No - Critical Care Critical Care patient: No
[2019-12-19 15:14] VITALS: BMI 28.1
[2019-12-19 17:38] VITALS: BP 130/70; PULSE 84; TEMP 98.9
== END 2019-12-19 20:09 | DRG 857 ==
LOC: JER 12:35 → JERBED 13:13 → J8W 17:50
PROVIDERS: ADMIT Internal Medicine; ATTEND Family Medicine
PROC: 0LBQ0ZZ Excision of Right Knee Tendon, Open Approach (ICD-10-PCS; 2019-12-04)
PROC: 0SPC0JZ Removal of Synthetic Substitute from Right Knee Joint, Open Approach (ICD-10-PCS; 2019-12-04)
PROC: 0SRC0J9 Replacement of Right Knee Joint with Synthetic Substitute, Cemented, Open Approach (ICD-10-PCS; 2019-12-04)
PROC: 0S9C00Z Drainage of Right Knee Joint with Drainage Device, Open Approach (ICD-10-PCS; 2019-12-04)
PROC: 30233N1 Transfusion of Nonautologous Red Blood Cells into Peripheral Vein, Percutaneous Approach (ICD-10-PCS; 2019-12-04)
PROC: 0HRKX74 Replacement of Right Lower Leg Skin with Autologous Tissue Substitute, Partial Thickness, External Approach (ICD-10-PCS; principal; 2019-12-04 08:00)
PROC: 0JBN0ZZ Excision of Right Lower Leg Subcutaneous Tissue and Fascia, Open Approach (ICD-10-PCS; 2019-12-04 08:00)
PROC: 0Y3H0ZZ Control Bleeding in Right Lower Leg, Open Approach (ICD-10-PCS; 2019-12-04 08:00)
PROC: 2W1LX6Z Compression of Right Lower Extremity using Pressure Dressing (ICD-10-PCS; 2019-12-12)
PROC: 2W1 Placement, Anatomical Regions, Compression (ICD-10-PCS; 2019-12-14)
PROC: 2W1LX6Z Compression of Right Lower Extremity using Pressure Dressing (ICD-10-PCS; 2019-12-17)
DX: T81.49XA Infection following a procedure, other surgical site, initial encounter (principal); M97.8XXA Periprosthetic fracture around other internal prosthetic joint, initial encounter; F05 Delirium due to known physiological condition; R71.0 Precipitous drop in hematocrit; A04.72 Enterocolitis due to Clostridium difficile, not specified as recurrent; F32.0 Major depressive disorder, single episode, mild; T86.821 Skin graft (allograft) (autograft) failure; N39.0 Urinary tract infection, site not specified; I10 Essential (primary) hypertension; J44.9 Chronic obstructive pulmonary disease, unspecified; E78.00 Pure hypercholesterolemia, unspecified; Y83.9 Surgical procedure, unspecified as the cause of abnormal reaction of the patient, or of later complication, without mention of misadventure at the time of the procedure; M21.371 Foot drop, right foot; R11.0 Nausea; Z96.659 Presence of unspecified artificial knee joint; K59.00 Constipation, unspecified; K64.9 Unspecified hemorrhoids; F41.8 Other specified anxiety disorders; L89.151 Pressure ulcer of sacral region, stage 1; B02.9 Zoster without complications; K21.9 Gastro-esophageal reflux disease without esophagitis; R13.10 Dysphagia, unspecified
CPT/HCPCS: 36415; 36430; 36511; 74019-TC-FY; 74230-TC-FY; 80048; 80053; 81003; 82962; 83735; 84100; 85025; 85027; 85610; 85730; 86850; 86900; 86901; 86922; 87070; 87077; 87086; 87102; 87186; 87205; 87210; 87324; 87449; 88300-TC; 92611-GN; 93005; 93010; 94760; 97116-GP; 97162-GP; 99285-25; G0277; G0480; P9038; P9058; U0003

== ENCOUNTER 2020-09-07 14:39 | Inpatient (IN) | payer OTHER ==
[2020-09-07] MEDS ORDERED: MELATONIN 1 MG TABLET PO ONE (17:03)
[2020-09-07] MEDS ORDERED: ACETAMINOPHEN 325 MG TABLET (FP) PO PRN (17:03)
[2020-09-07 17:08] LABS: BASO % 0.9 % (0-2.0); EOS % 2.8 % (0-4.5); HEMATOCRIT 33.5 % (32.4-45.2); LYMPH % 21.8 % (8-40); MCH 28.5 pg (25.7-33.7); MCHC 32.7 g/dl (32.0-36.0); MEAN CELL VOLUME 86.9 fl (80-96); MEAN PLT VOLUME 7.5 fl (7.5-11.1); MONO % 9.4 % (3.8-10.2); NEUT % 65.1 % (42.8-82.8); PLATELET COUNT 314 K/MM3 (134-434); RBC 3.86 M/mm3 (3.60-5.2); RDW 15.5 % (11.6-15.6); WHITE BLOOD COUNT 6.3 K/mm3 (4.0-10.0)
[2020-09-07] MEDS ORDERED: VANCOMYCIN 1 GM in D5W (PRE-DOCKED) 1,000 MG/250 ML IVPB ONE (17:08)
[2020-09-07] MEDS ORDERED: PIPERACILLIN/TAZOB 3.375 GM 3.375 GM in DEXTROSE 5%-WATER - 50 ML IVPB ONE (17:08)
[2020-09-07] MEDS ORDERED: VANCOMYCIN 1 GRAM (PRE-DOCKED) 1,000 MG/250 ML BAG IVPB ONE (17:12)
[2020-09-07] MEDS ORDERED: PIPERACILLIN/TAZOB 3.375 GM 3.375 GM/50 ML BAG IVPB ONE ×2 (17:13→21:11)
[2020-09-07] MEDS ORDERED: VANCOMYCIN PREMIX 1.5 GM 1,500 MG/300 ML BAG IVPB ONE (17:20)
[2020-09-07] MEDS ORDERED: VANCOMYCIN 500 MG VIAL (RESTRICTED TO ID ONLY) ONE (17:20)
[2020-09-07 17:35] LABS: CALCIUM 10.8 mg/dL (8.5-10.1)
[2020-09-07 17:36] LABS: BLOOD UREA NITROGEN 35.7 mg/dL (7-18)
[2020-09-07 17:39] LABS: CREATININE 0.9 mg/dL (0.55-1.3)
[2020-09-07 17:41] LABS: BILIRUBIN,TOTAL 0.5 mg/dL (0.2-1); TOT PROT 7.1 g/dl (6.4-8.2)
[2020-09-07] MEDS ORDERED: traMADol HCL 50 MG TABLET ONE (21:10)
[2020-09-07] MEDS: PIPERACILLIN/TAZOB 3.375 GM 3.375 GM in DEXTROSE 5%-WATER - 50 ML IVPB SCH (21:16)
[2020-09-07] MEDS: traMADol HCL 50 MG TABLET PO PRN (21:17)
[2020-09-07] MEDS ORDERED: FAMOTIDINE 10 MG TABLET ONE (23:03)
[2020-09-07] MEDS ORDERED: GABAPENTIN 100 MG CAPSULE ONE (23:03)
[2020-09-07] MEDS ORDERED: ATORVASTATIN CA 20 MG TABLET (FP) ONE (23:03)
[2020-09-07] MEDS: GABAPENTIN 300 MG CAPSULE PO SCH (23:07)
[2020-09-07] MEDS: ATORVASTATIN CA 20 MG TABLET (FP) PO SCH (23:07)
[2020-09-07] MEDS: FAMOTIDINE 10 MG TABLET PO SCH (23:07)
[2020-09-07] MEDS: LACTULOSE 20 GM/30 ML UDC (FOR ORAL USE ONLY) PO SCH (23:08)
[2020-09-08] MEDS ORDERED: VANCOMYCIN 1,000 MG in DEXTROSE 5%-WATER - 250 ML IVPB SCH (01:00)
[2020-09-08] MEDS ORDERED: PIPERACILLIN/TAZOB 3.375 GM 3.375 GM/50 ML BAG IVPB ONE ×3 (03:33→15:42)
[2020-09-08] MEDS: PIPERACILLIN/TAZOB 3.375 GM 3.375 GM in DEXTROSE 5%-WATER - 50 ML IVPB SCH ×4 (03:34→21:00)
[2020-09-08] MEDS ORDERED: VANCOMYCIN 1 GRAM (PRE-DOCKED) 1,000 MG/250 ML BAG IVPB ONE ×2 (06:10→18:52)
[2020-09-08] MEDS: VANCOMYCIN 1 GRAM (PRE-DOCKED) 1,000 MG/250 ML BAG IVPB SCH ×2 (06:13→18:58)
[2020-09-08] MEDS: GABAPENTIN 300 MG CAPSULE PO SCH ×4 (06:23→21:10)
[2020-09-08 06:45] LABS: HEMATOCRIT 33.6 % (32.4-45.2); HEMOGLOBIN 11.4 GM/dL (10.7-15.3); MCHC 33.8 g/dl (32.0-36.0); MEAN CELL VOLUME 85.8 fl (80-96); MEAN PLT VOLUME 7.2 fl (7.5-11.1); PLATELET COUNT 311 K/MM3 (134-434); RBC 3.92 M/mm3 (3.60-5.2); RDW 15.6 % (11.6-15.6)
[2020-09-08] MEDS ORDERED: LACTULOSE 20 GM/30 ML UDC (FOR ORAL USE ONLY) ONE (09:10)
[2020-09-08] MEDS ORDERED: FUROSEMIDE 40 MG TABLET (FP) ONE (09:11)
[2020-09-08] MEDS ORDERED: FAMOTIDINE 10 MG TABLET ONE (09:11)
[2020-09-08] MEDS ORDERED: SERTRALINE HCL 50 MG TABLET (FP) ONE (09:11)
[2020-09-08] MEDS: FAMOTIDINE 10 MG TABLET PO SCH ×2 (09:24→21:05)
[2020-09-08] MEDS: LACTULOSE 20 GM/30 ML UDC (FOR ORAL USE ONLY) PO SCH ×2 (09:25→21:15)
[2020-09-08] MEDS: SERTRALINE HCL 25 MG TABLET (FP) PO SCH (09:25)
[2020-09-08] MEDS: FUROSEMIDE 40 MG TABLET (FP) PO SCH (09:25)
[2020-09-08] MEDS ORDERED: LACTOBACILLUS ACIDOPHILUS PO SCH (10:00)
[2020-09-08] MEDS ORDERED: ENOXAPARIN NA (PORCINE) 80 MG/0.8 ML DISP.SYRIN SQ ONE (11:25)
[2020-09-08] MEDS: ENOXAPARIN NA (PORCINE) 80 MG/0.8 ML DISP.SYRIN SQ SCH ×2 (11:29→21:15)
[2020-09-08] MEDS ORDERED: PATIENT'S OWN MEDICATION (NON-FORMULARY) (Gabapentin [Gabapentin] 600 MG Tablet) PO SCH (14:00)
[2020-09-08] MEDS: LACTOBACILLUS ACIDOPHILUS 1 TABLET PO SCH (15:40)
[2020-09-08] MEDS ORDERED: DEXTROSE 5%-WATER - 50 ML IVPB ONE (20:56)
[2020-09-08] MEDS ORDERED: PIPERACILLIN/TAZOBACTAM 3.375 GM VIAL IVPB ONE (20:56)
[2020-09-08] MEDS: MELATONIN 1 MG TABLET PO SCH (21:10)
[2020-09-08] MEDS: ATORVASTATIN CA 20 MG TABLET (FP) PO SCH (21:15)
[2020-09-08] MEDS ORDERED: PATIENT'S OWN MEDICATION (NON-FORMULARY) (Melatonin [Melatonin] 3 MG Capsule) PO SCH (22:00)
[2020-09-09 02:30] LABS: ALBUMIN 2.8 g/dl (3.4-5.0); BLOOD UREA NITROGEN 33.6 mg/dL (7-18); CALCIUM 10.6 mg/dL (8.5-10.1)
[2020-09-09] MEDS ORDERED: PIPERACILLIN/TAZOBACTAM 3.375 GM VIAL IVPB ONE ×4 (02:32→21:38)
[2020-09-09] MEDS ORDERED: DEXTROSE 5%-WATER - 50 ML IVPB ONE ×4 (02:33→21:38)
[2020-09-09 02:35] LABS: BILIRUBIN,TOTAL 0.8 mg/dL (0.2-1); TOT PROT 6.7 g/dl (6.4-8.2)
[2020-09-09] MEDS: PIPERACILLIN/TAZOB 3.375 GM 3.375 GM in DEXTROSE 5%-WATER - 50 ML IVPB SCH ×4 (02:35→21:45)
[2020-09-09] MEDS: VANCOMYCIN 1 GRAM (PRE-DOCKED) 1,000 MG/250 ML BAG IVPB SCH (05:25)
[2020-09-09] MEDS: GABAPENTIN 300 MG CAPSULE PO SCH ×3 (05:31→21:47)
[2020-09-09 09:15] LABS: EOS % 5.3 % (0-4.5); HEMOGLOBIN 11.7 GM/dL (10.7-15.3); WHITE BLOOD COUNT 4.7 K/mm3 (4.0-10.0)
[2020-09-09 09:20] LABS: BASO % 0.7 % (0-2.0); HEMATOCRIT 34.9 % (32.4-45.2); LYMPH % 21.2 % (8-40); MCH 28.8 pg (25.7-33.7); MCHC 33.4 g/dl (32.0-36.0); MEAN CELL VOLUME 86.3 fl (80-96); MEAN PLT VOLUME 7.7 fl (7.5-11.1); MONO % 8.2 % (3.8-10.2); NEUT % 64.6 % (42.8-82.8); PLATELET COUNT 295 K/MM3 (134-434); RBC 4.04 M/mm3 (3.60-5.2); RDW 15.5 % (11.6-15.6)
[2020-09-09] MEDS: ENOXAPARIN NA (PORCINE) 80 MG/0.8 ML DISP.SYRIN SQ SCH ×2 (09:35→21:47)
[2020-09-09] MEDS: traMADol HCL 50 MG TABLET PO PRN (09:35)
[2020-09-09] MEDS: FUROSEMIDE 40 MG TABLET (FP) PO SCH (09:36)
[2020-09-09] MEDS: LACTOBACILLUS ACIDOPHILUS 1 TABLET PO SCH (09:36)
[2020-09-09] MEDS: LACTULOSE 20 GM/30 ML UDC (FOR ORAL USE ONLY) PO SCH ×2 (09:36→21:49)
[2020-09-09] MEDS: SERTRALINE HCL 25 MG TABLET (FP) PO SCH (09:36)
[2020-09-09] MEDS: FAMOTIDINE 10 MG TABLET PO SCH ×2 (09:36→21:48)
[2020-09-09 10:06] LABS: ALBUMIN 2.8 g/dl (3.4-5.0); BLOOD UREA NITROGEN 27.1 mg/dL (7-18); CALCIUM 10.9 mg/dL (8.5-10.1)
[2020-09-09 10:11] LABS: BILIRUBIN,TOTAL 0.9 mg/dL (0.2-1); TOT PROT 6.8 g/dl (6.4-8.2)
[2020-09-09] MEDS: ATORVASTATIN CA 20 MG TABLET (FP) PO SCH (21:47)
[2020-09-09] MEDS: MELATONIN 1 MG TABLET PO SCH (21:48)
[2020-09-10] MEDS ORDERED: DEXTROSE 5%-WATER - 50 ML IVPB ONE ×3 (02:24→21:08)
[2020-09-10] MEDS ORDERED: PIPERACILLIN/TAZOBACTAM 3.375 GM VIAL IVPB ONE ×3 (02:24→21:08)
[2020-09-10] MEDS: PIPERACILLIN/TAZOB 3.375 GM 3.375 GM in DEXTROSE 5%-WATER - 50 ML IVPB SCH ×4 (02:40→21:24)
[2020-09-10] MEDS: GABAPENTIN 300 MG CAPSULE PO SCH ×3 (05:15→21:24)
[2020-09-10] MEDS: LACTULOSE 20 GM/30 ML UDC (FOR ORAL USE ONLY) PO SCH ×2 (09:08→21:29)
[2020-09-10] MEDS: LACTOBACILLUS ACIDOPHILUS 1 TABLET PO SCH (09:08)
[2020-09-10] MEDS: FAMOTIDINE 10 MG TABLET PO SCH ×2 (09:08→21:25)
[2020-09-10] MEDS: SERTRALINE HCL 25 MG TABLET (FP) PO SCH (09:09)
[2020-09-10] MEDS: FUROSEMIDE 40 MG TABLET (FP) PO SCH (09:09)
[2020-09-10] MEDS ORDERED: VANCOMYCIN 1,000 MG VIAL (RESTRICTED TO ID ONLY) ONE (14:45)
[2020-09-10] MEDS ORDERED: ACETAMINOPHEN 1000 MG/100 ML VIAL (NON FORMULARY) IVPB ONE (17:15)
[2020-09-10] MEDS ORDERED: ACETAMINOPHEN INJECTION 100 ML IVPB ONE (17:36)
[2020-09-10] MEDS: LACTATED RINGERS SOLUTION 1,000 ML IV SCH (21:23)
[2020-09-10] MEDS: ATORVASTATIN CA 20 MG TABLET (FP) PO SCH (21:24)
[2020-09-10] MEDS: MELATONIN 1 MG TABLET PO SCH (21:25)
[2020-09-11] MEDS ORDERED: PIPERACILLIN/TAZOBACTAM 3.375 GM VIAL IVPB ONE ×4 (01:29→21:10)
[2020-09-11] MEDS ORDERED: DEXTROSE 5%-WATER - 50 ML IVPB ONE ×4 (01:30→21:10)
[2020-09-11] MEDS: PIPERACILLIN/TAZOB 3.375 GM 3.375 GM in DEXTROSE 5%-WATER - 50 ML IVPB SCH ×4 (02:40→21:48)
[2020-09-11] MEDS: GABAPENTIN 300 MG CAPSULE PO SCH ×3 (06:32→21:49)
[2020-09-11] MEDS ORDERED: PT OWN MED DRAWER 7, Y5N ONE (09:01)
[2020-09-11 09:57] LABS: BASO % 0.9 % (0-2.0); EOS % 4.5 % (0-4.5); HEMATOCRIT 31.8 % (32.4-45.2); HEMOGLOBIN 10.5 GM/dL (10.7-15.3); LYMPH % 19.3 % (8-40); MCH 28.6 pg (25.7-33.7); MEAN CELL VOLUME 86.5 fl (80-96); MEAN PLT VOLUME 7.8 fl (7.5-11.1); MONO % 10.8 % (3.8-10.2); NEUT % 64.5 % (42.8-82.8); PLATELET COUNT 278 K/MM3 (134-434); RBC 3.67 M/mm3 (3.60-5.2); RDW 15.5 % (11.6-15.6); WHITE BLOOD COUNT 4.6 K/mm3 (4.0-10.0)
[2020-09-11] MEDS: FUROSEMIDE 40 MG TABLET (FP) PO SCH (10:00)
[2020-09-11] MEDS: SERTRALINE HCL 25 MG TABLET (FP) PO SCH (10:00)
[2020-09-11] MEDS: LACTOBACILLUS ACIDOPHILUS 1 TABLET PO SCH (10:01)
[2020-09-11] MEDS: LACTULOSE 20 GM/30 ML UDC (FOR ORAL USE ONLY) PO SCH ×2 (10:01→21:49)
[2020-09-11] MEDS: FAMOTIDINE 10 MG TABLET PO SCH ×2 (10:01→21:56)
[2020-09-11 10:18] LABS: CALCIUM 10.5 mg/dL (8.5-10.1)
[2020-09-11 10:19] LABS: ALBUMIN 2.5 g/dl (3.4-5.0); BLOOD UREA NITROGEN 19.6 mg/dL (7-18)
[2020-09-11] MEDS: ENOXAPARIN NA (PORCINE) 80 MG/0.8 ML DISP.SYRIN SQ SCH ×2 (10:21→21:49)
[2020-09-11 10:22] LABS: CREATININE 0.9 mg/dL (0.55-1.3)
[2020-09-11 10:24] LABS: BILIRUBIN,TOTAL 0.4 mg/dL (0.2-1); TOT PROT 6.2 g/dl (6.4-8.2)
[2020-09-11] MEDS: DOXYCYCLINE HYCLATE 100 MG CAPSULE PO SCH (18:07)
[2020-09-11] MEDS: LACTATED RINGERS SOLUTION 1,000 ML IV SCH (20:05)
[2020-09-11] MEDS: ATORVASTATIN CA 20 MG TABLET (FP) PO SCH (21:49)
[2020-09-11] MEDS: MELATONIN 1 MG TABLET PO SCH (21:49)
[2020-09-12] MEDS ORDERED: PIPERACILLIN/TAZOBACTAM 3.375 GM VIAL IVPB ONE ×4 (01:47→21:29)
[2020-09-12] MEDS ORDERED: DEXTROSE 5%-WATER - 50 ML IVPB ONE ×4 (01:47→21:29)
[2020-09-12] MEDS: PIPERACILLIN/TAZOB 3.375 GM 3.375 GM in DEXTROSE 5%-WATER - 50 ML IVPB SCH ×4 (02:04→21:42)
[2020-09-12] MEDS: GABAPENTIN 300 MG CAPSULE PO SCH ×3 (05:39→21:44)
[2020-09-12] MEDS: FUROSEMIDE 40 MG TABLET (FP) PO SCH (09:04)
[2020-09-12] MEDS: DOXYCYCLINE HYCLATE 100 MG CAPSULE PO SCH ×2 (09:04→17:34)
[2020-09-12] MEDS: LACTOBACILLUS ACIDOPHILUS 1 TABLET PO SCH (09:04)
[2020-09-12] MEDS: LACTULOSE 20 GM/30 ML UDC (FOR ORAL USE ONLY) PO SCH ×2 (09:04→21:44)
[2020-09-12] MEDS: ENOXAPARIN NA (PORCINE) 80 MG/0.8 ML DISP.SYRIN SQ SCH ×2 (09:04→21:45)
[2020-09-12] MEDS: FAMOTIDINE 10 MG TABLET PO SCH ×2 (09:04→21:44)
[2020-09-12] MEDS: SERTRALINE HCL 25 MG TABLET (FP) PO SCH (09:04)
[2020-09-12] MEDS: LACTATED RINGERS SOLUTION 1,000 ML IV SCH (21:43)
[2020-09-12] MEDS: ATORVASTATIN CA 20 MG TABLET (FP) PO SCH (21:43)
[2020-09-12] MEDS: MELATONIN 1 MG TABLET PO SCH (21:44)
[2020-09-13] MEDS ORDERED: PIPERACILLIN/TAZOBACTAM 3.375 GM VIAL IVPB ONE ×4 (01:45→22:02)
[2020-09-13] MEDS ORDERED: DEXTROSE 5%-WATER - 50 ML IVPB ONE ×4 (01:45→22:02)
[2020-09-13] MEDS: PIPERACILLIN/TAZOB 3.375 GM 3.375 GM in DEXTROSE 5%-WATER - 50 ML IVPB SCH ×4 (03:51→22:04)
[2020-09-13] MEDS: GABAPENTIN 300 MG CAPSULE PO SCH ×3 (05:40→22:04)
[2020-09-13] MEDS: LACTOBACILLUS ACIDOPHILUS 1 TABLET PO SCH (09:39)
[2020-09-13] MEDS: DOXYCYCLINE HYCLATE 100 MG CAPSULE PO SCH ×2 (09:39→17:14)
[2020-09-13] MEDS: LACTULOSE 20 GM/30 ML UDC (FOR ORAL USE ONLY) PO SCH ×2 (09:39→22:05)
[2020-09-13] MEDS: FAMOTIDINE 10 MG TABLET PO SCH ×2 (09:39→22:05)
[2020-09-13] MEDS: ENOXAPARIN NA (PORCINE) 80 MG/0.8 ML DISP.SYRIN SQ SCH ×2 (09:40→22:06)
[2020-09-13] MEDS: SERTRALINE HCL 25 MG TABLET (FP) PO SCH (09:40)
[2020-09-13] MEDS: FUROSEMIDE 40 MG TABLET (FP) PO SCH (09:40)
[2020-09-13] MEDS: ACETAMINOPHEN 500 MG TABLET (FP) PO PRN (17:17)
[2020-09-13] MEDS: MELATONIN 1 MG TABLET PO SCH (22:04)
[2020-09-13] MEDS: ATORVASTATIN CA 20 MG TABLET (FP) PO SCH (22:04)
[2020-09-13] MEDS: LACTATED RINGERS SOLUTION 1,000 ML IV SCH (22:19)
[2020-09-14] MEDS: LACTATED RINGERS SOLUTION 1,000 ML IV SCH ×3 (01:42→21:09)
[2020-09-14] MEDS ORDERED: DEXTROSE 5%-WATER - 50 ML IVPB ONE ×4 (02:59→15:20)
[2020-09-14] MEDS ORDERED: PIPERACILLIN/TAZOBACTAM 3.375 GM VIAL IVPB ONE ×3 (02:59→14:10)
[2020-09-14] MEDS: PIPERACILLIN/TAZOB 3.375 GM 3.375 GM in DEXTROSE 5%-WATER - 50 ML IVPB SCH ×3 (03:04→14:32)
[2020-09-14] MEDS: GABAPENTIN 300 MG CAPSULE PO SCH ×3 (06:59→21:07)
[2020-09-14] MEDS ORDERED: PT OWN MED DRAWER 7, Y5N ONE (09:07)
[2020-09-14] MEDS: LACTOBACILLUS ACIDOPHILUS 1 TABLET PO SCH (09:27)
[2020-09-14] MEDS: FAMOTIDINE 10 MG TABLET PO SCH ×2 (09:27→21:08)
[2020-09-14] MEDS: ENOXAPARIN NA (PORCINE) 80 MG/0.8 ML DISP.SYRIN SQ SCH ×2 (09:28→21:10)
[2020-09-14] MEDS: DOXYCYCLINE HYCLATE 100 MG CAPSULE PO SCH (09:28)
[2020-09-14] MEDS: FUROSEMIDE 40 MG TABLET (FP) PO SCH (09:28)
[2020-09-14] MEDS: SERTRALINE HCL 25 MG TABLET (FP) PO SCH (09:29)
[2020-09-14] MEDS: LACTULOSE 20 GM/30 ML UDC (FOR ORAL USE ONLY) PO SCH ×2 (09:33→21:09)
[2020-09-14] MEDS ORDERED: cefTRIAXone SODIUM 1 GM VIAL ONE (15:20)
[2020-09-14] MEDS: CEFTRIAXONE 1 GM in DEXTROSE 5%-WATER - 50 ML IVPB SCH (15:27)
[2020-09-14] MEDS: DAPTOMYCIN 500 MG in SODIUM CHLORIDE 50 ML IVPB SCH (15:28)
[2020-09-14] MEDS: MELATONIN 1 MG TABLET PO SCH (21:08)
[2020-09-14] MEDS ORDERED: CEFTAROLINE FOSAMIL ACETATE 600 MG in DEXTROSE 5%-WATER - 100 ML IVPB SCH (22:00)
[2020-09-15] MEDS: GABAPENTIN 300 MG CAPSULE PO SCH ×3 (05:39→22:17)
[2020-09-15] MEDS ORDERED: cefTRIAXone SODIUM 1 GM VIAL ONE (08:56)
[2020-09-15] MEDS ORDERED: DEXTROSE 5%-WATER - 50 ML IVPB ONE (08:57)
[2020-09-15] MEDS: FUROSEMIDE 40 MG TABLET (FP) PO SCH (09:00)
[2020-09-15] MEDS: CEFTRIAXONE 1 GM in DEXTROSE 5%-WATER - 50 ML IVPB SCH (09:00)
[2020-09-15] MEDS: LACTULOSE 20 GM/30 ML UDC (FOR ORAL USE ONLY) PO SCH ×2 (09:00→22:17)
[2020-09-15] MEDS: FAMOTIDINE 10 MG TABLET PO SCH ×2 (09:01→22:14)
[2020-09-15] MEDS: LACTOBACILLUS ACIDOPHILUS 1 TABLET PO SCH (09:01)
[2020-09-15] MEDS: ENOXAPARIN NA (PORCINE) 80 MG/0.8 ML DISP.SYRIN SQ SCH ×2 (09:02→22:17)
[2020-09-15] MEDS: SERTRALINE HCL 25 MG TABLET (FP) PO SCH (09:09)
[2020-09-15 09:26] LABS: BASO % 0.9 % (0-2.0); EOS % 5.1 % (0-4.5); HEMATOCRIT 34.2 % (32.4-45.2); HEMOGLOBIN 11.5 GM/dL (10.7-15.3); LYMPH % 30.4 % (8-40); MCH 28.8 pg (25.7-33.7); MCHC 33.6 g/dl (32.0-36.0); MEAN CELL VOLUME 85.7 fl (80-96); MEAN PLT VOLUME 7.5 fl (7.5-11.1); MONO % 6.6 % (3.8-10.2); PLATELET COUNT 258 K/MM3 (134-434); RBC 3.99 M/mm3 (3.60-5.2); RDW 15.3 % (11.6-15.6); WHITE BLOOD COUNT 4.5 K/mm3 (4.0-10.0)
[2020-09-15 09:28] LABS: CALCIUM 10.5 mg/dL (8.5-10.1)
[2020-09-15 09:29] LABS: ALBUMIN 2.6 g/dl (3.4-5.0); BLOOD UREA NITROGEN 20.3 mg/dL (7-18)
[2020-09-15 09:32] LABS: CREATININE 0.9 mg/dL (0.55-1.3)
[2020-09-15 09:33] LABS: BILIRUBIN,TOTAL 0.4 mg/dL (0.2-1)
[2020-09-15 09:34] LABS: TOT PROT 6.3 g/dl (6.4-8.2)
[2020-09-15] MEDS: LACTATED RINGERS SOLUTION 1,000 ML IV SCH ×2 (11:45→22:45)
[2020-09-15 13:21] VITALS: BMI 27.1
[2020-09-15] MEDS: DAPTOMYCIN 500 MG in SODIUM CHLORIDE 50 ML IVPB SCH (16:45)
[2020-09-15] MEDS: ACETAMINOPHEN 500 MG TABLET (FP) PO PRN (20:09)
[2020-09-15] MEDS: MELATONIN 1 MG TABLET PO SCH (22:16)
[2020-09-16] MEDS: GABAPENTIN 300 MG CAPSULE PO SCH ×3 (05:27→22:07)
[2020-09-16] MEDS: MULTIVITAMINS THER W-MINERALS COMBO TABLET (FP) PO SCH (09:10)
[2020-09-16] MEDS: APIXABAN 5 MG TABLET PO SCH ×2 (09:10→22:06)
[2020-09-16] MEDS ORDERED: cefTRIAXone SODIUM 1 GM VIAL ONE (09:10)
[2020-09-16] MEDS ORDERED: DEXTROSE 5%-WATER - 50 ML IVPB ONE (09:10)
[2020-09-16] MEDS: SERTRALINE HCL 25 MG TABLET (FP) PO SCH (09:10)
[2020-09-16] MEDS: traMADol HCL 50 MG TABLET PO PRN ×2 (09:10→22:08)
[2020-09-16] MEDS: FAMOTIDINE 10 MG TABLET PO SCH ×2 (09:14→22:07)
[2020-09-16] MEDS: LACTOBACILLUS ACIDOPHILUS 1 TABLET PO SCH (09:14)
[2020-09-16] MEDS: CEFTRIAXONE 1 GM in DEXTROSE 5%-WATER - 50 ML IVPB SCH (09:14)
[2020-09-16] MEDS: FUROSEMIDE 40 MG TABLET (FP) PO SCH (09:16)
[2020-09-16] MEDS: LACTULOSE 20 GM/30 ML UDC (FOR ORAL USE ONLY) PO SCH ×2 (09:16→22:08)
[2020-09-16] MEDS: DAPTOMYCIN 500 MG in SODIUM CHLORIDE 50 ML IVPB SCH (14:59)
[2020-09-16] MEDS ORDERED: MELATONIN 1 MG TABLET PO SCH (22:00)
[2020-09-16] MEDS: MELATONIN 1 MG TABLET PO SCH (22:45)
[2020-09-17] MEDS: GABAPENTIN 300 MG CAPSULE PO SCH ×3 (06:20→21:51)
[2020-09-17] MEDS ORDERED: cefTRIAXone SODIUM 1 GM VIAL ONE (10:17)
[2020-09-17] MEDS ORDERED: DEXTROSE 5%-WATER - 50 ML IVPB ONE (10:18)
[2020-09-17] MEDS: CEFTRIAXONE 1 GM in DEXTROSE 5%-WATER - 50 ML IVPB SCH (10:25)
[2020-09-17] MEDS: MULTIVITAMINS THER W-MINERALS COMBO TABLET (FP) PO SCH (10:26)
[2020-09-17] MEDS: APIXABAN 5 MG TABLET PO SCH ×2 (10:26→21:51)
[2020-09-17] MEDS: LACTULOSE 20 GM/30 ML UDC (FOR ORAL USE ONLY) PO SCH ×2 (10:27→21:51)
[2020-09-17] MEDS: FAMOTIDINE 10 MG TABLET PO SCH ×2 (10:27→21:38)
[2020-09-17] MEDS: FUROSEMIDE 40 MG TABLET (FP) PO SCH (10:27)
[2020-09-17] MEDS: SERTRALINE HCL 25 MG TABLET (FP) PO SCH (10:27)
[2020-09-17] MEDS: LACTOBACILLUS ACIDOPHILUS 1 TABLET PO SCH (10:27)
[2020-09-17] MEDS: DAPTOMYCIN 500 MG in SODIUM CHLORIDE 50 ML IVPB SCH (17:58)
[2020-09-17] MEDS: MELATONIN 1 MG TABLET PO SCH (21:52)
[2020-09-18] MEDS: GABAPENTIN 300 MG CAPSULE PO SCH ×2 (06:17→15:28)
[2020-09-18] MEDS ORDERED: DEXTROSE 5%-WATER - 50 ML IVPB ONE (09:50)
[2020-09-18] MEDS ORDERED: cefTRIAXone SODIUM 1 GM VIAL ONE (09:50)
[2020-09-18] MEDS: MULTIVITAMINS THER W-MINERALS COMBO TABLET (FP) PO SCH (10:00)
[2020-09-18] MEDS: APIXABAN 5 MG TABLET PO SCH (10:00)
[2020-09-18] MEDS: LACTULOSE 20 GM/30 ML UDC (FOR ORAL USE ONLY) PO SCH (10:00)
[2020-09-18] MEDS: FUROSEMIDE 40 MG TABLET (FP) PO SCH (10:01)
[2020-09-18] MEDS: FAMOTIDINE 10 MG TABLET PO SCH (10:01)
[2020-09-18] MEDS: SERTRALINE HCL 25 MG TABLET (FP) PO SCH (10:01)
[2020-09-18] MEDS: CEFTRIAXONE 1 GM in DEXTROSE 5%-WATER - 50 ML IVPB SCH (10:02)
[2020-09-18] MEDS: LACTOBACILLUS ACIDOPHILUS 1 TABLET PO SCH (10:02)
[2020-09-18] MEDS: DAPTOMYCIN 500 MG in SODIUM CHLORIDE 50 ML IVPB SCH (16:15)
[2020-09-18 17:34] VITALS: BP 110/60; PULSE 76; TEMP 98.7
== END 2020-09-18 18:02 | DRG 464 ==
LOC: JER 14:39 → JERBED 17:19 → J6S 09-08 20:04
PROVIDERS: ADMIT Family Medicine; ATTEND Family Medicine
PROC: 0SQ Lower Joints, Repair (ICD-10-PCS; 2020-09-10)
PROC: 0JBN0ZZ Excision of Right Lower Leg Subcutaneous Tissue and Fascia, Open Approach (ICD-10-PCS; principal; 2020-09-10 14:00)
PROC: 0QBG0ZZ Excision of Right Tibia, Open Approach (ICD-10-PCS; 2020-09-10 14:00)
PROC: 02HV33Z Insertion of Infusion Device into Superior Vena Cava, Percutaneous Approach (ICD-10-PCS; 2020-09-18)
DX: T84.53XA Infection and inflammatory reaction due to internal right knee prosthesis, initial encounter (principal); M86.161 Other acute osteomyelitis, right tibia and fibula; M86.661 Other chronic osteomyelitis, right tibia and fibula; I10 Essential (primary) hypertension; Z86.718 Personal history of other venous thrombosis and embolism; Y83.9 Surgical procedure, unspecified as the cause of abnormal reaction of the patient, or of later complication, without mention of misadventure at the time of the procedure; K21.9 Gastro-esophageal reflux disease without esophagitis; S81.001A Unspecified open wound, right knee, initial encounter; X58.XXXA Exposure to other specified factors, initial encounter; Y93.89 Activity, other specified; Y92.89 Other specified places as the place of occurrence of the external cause; Y99.9 Unspecified external cause status
CPT/HCPCS: 36415; 36569; 71045-TC-FY; 73552-TC-RT-FY; 73560-TC-RT-FY; 73590-TC-RT-FY; 80053; 80061; 83036; 83721; 84443; 85025; 85027; 85651; 86140; 86850; 86900; 86901; 87040; 87070; 87075; 87186; 87205; 88305-TC; 88311-TC; 93005; 93010; 94760; 97116-GP; 97162-GP; 99285-25; C9803; G0480; J0131; J0878; U0003; U0005

== ENCOUNTER 2021-01-28 15:00 | Inpatient (IN) | payer OTHER ==
[2021-01-28] MEDS ORDERED: VANCOMYCIN 1 GM in D5W (PRE-DOCKED) 1,000 MG/250 ML IVPB ONE (15:54)
[2021-01-28] MEDS ORDERED: PIPERACILLIN/TAZOB 3.375 GM 3.375 GM in DEXTROSE 5%-WATER - 50 ML IVPB ONE (15:56)
[2021-01-28] MEDS ORDERED: VANCOMYCIN 1 GRAM (PRE-DOCKED) 1,000 MG/250 ML BAG IVPB ONE (16:30)
[2021-01-28] MEDS ORDERED: PIPERACILLIN/TAZOB 3.375 GM 3.375 GM/50 ML BAG IVPB ONE (16:30)
[2021-01-28 18:36] LABS: BASO % 0.5 % (0-2.0); EOS % 2.2 % (0-4.5); HEMATOCRIT 30.8 % (32.4-45.2); HEMOGLOBIN 10.2 GM/dL (10.7-15.3); LYMPH % 21.5 % (8-40); MCH 28.3 pg (25.7-33.7); MEAN CELL VOLUME 85.7 fl (80-96); MEAN PLT VOLUME 7.3 fl (7.5-11.1); MONO % 6.5 % (3.8-10.2); NEUT % 69.3 % (42.8-82.8); PLATELET COUNT 402 10^3/uL (134-434); RBC 3.59 M/mm3 (3.60-5.2); RDW 15.2 % (11.6-15.6); WHITE BLOOD COUNT 7.5 K/mm3 (4.0-10.0)
[2021-01-28 19:05] LABS: CALCIUM 9.9 mg/dL (8.5-10.1)
[2021-01-28 19:06] LABS: ALBUMIN 2.6 g/dl (3.4-5.0); BLOOD UREA NITROGEN 25.4 mg/dL (7-18)
[2021-01-28 19:10] LABS: BILIRUBIN,TOTAL 0.3 mg/dL (0.2-1); TOT PROT 7.1 g/dl (6.4-8.2)
[2021-01-28] MEDS ORDERED: ACETAMINOPHEN 1000 MG/100 ML VIAL (NON FORMULARY) IVPB ONE (20:15)
[2021-01-28] MEDS ORDERED: SODIUM CHLORIDE 0.9% 500 ML INFUS.BAG IV ONE (20:22)
[2021-01-28] MEDS ORDERED: ACETAMINOPHEN INJECTION 100 ML IVPB ONE (20:32)
[2021-01-28] MEDS ORDERED: VANCOMYCIN/WATER FOR INJ (PEG) 750 MG/150 ML BAG IVPB SCH (21:45)
[2021-01-29] MEDS ORDERED: PIPERACILLIN/TAZOB 3.375 GM 3.375 GM in DEXTROSE 5%-WATER - 50 ML IVPB SCH (02:00)
[2021-01-29 02:37] LABS: EPI CELLS >36 /uL (0-25.1); HYALINE CASTS 3 /uL (0-3.1); PH,URINE 5.5 (5.0-8.0); URINE APPEARANCE TURBID; URINE BACTERIA >9,000 /uL (0-1359); URINE BILIRUBIN NEGATIVE (NEGATIVE); URINE COLOR YELLOW; URINE GLUCOSE (UA) NEGATIVE (NEGATIVE); URINE KETONE NEGATIVE (NEGATIVE); URINE LEUK ESTERASE 3+ (NEGATIVE); URINE NITRITE POSITIVE (NEGATIVE); URINE PROTEIN 1+ (NEGATIVE); URINE UROBILINOGEN 0.2 mg/dL (0.2-1.0); URINE WBC 19880 /uL (0-25.8)
[2021-01-29] MEDS: PIPERACILLIN/TAZOB 3.375 GM 3.375 GM in DEXTROSE 5%-WATER - 50 ML IVPB SCH ×3 (04:40→09:07)
[2021-01-29 06:00] LABS: YEAST NONE SEEN (NEGATIVE)
[2021-01-29] MEDS ORDERED: traMADol HCL 50 MG TABLET PO PRN (07:39)
[2021-01-29] MEDS: GABAPENTIN 300 MG CAPSULE PO SCH ×3 (09:00→21:31)
[2021-01-29] MEDS ORDERED: DEXTROSE 5%-WATER - 50 ML IVPB ONE ×2 (09:06→12:54)
[2021-01-29] MEDS: ZINC SULFATE 220 MG CAPSULE (FP) PO SCH (09:06)
[2021-01-29] MEDS ORDERED: PIPERACILLIN/TAZOBACTAM 3.375 GM VIAL IVPB ONE (09:06)
[2021-01-29] MEDS: APIXABAN 5 MG TABLET PO SCH ×2 (09:07→21:31)
[2021-01-29] MEDS: FAMOTIDINE 20 MG TABLET PO SCH (09:07)
[2021-01-29] MEDS: MULTIVITAMINS (DAILY MVI) TABLET (FP) PO SCH (09:07)
[2021-01-29] MEDS: LACTOBACILLUS ACIDOPHILUS 1 TABLET PO SCH (09:07)
[2021-01-29] MEDS: SERTRALINE HCL 25 MG TABLET (FP) PO SCH (09:07)
[2021-01-29] MEDS: ASCORBIC ACID 500 MG TABLET (FP) PO SCH ×2 (09:07→21:31)
[2021-01-29] MEDS: FUROSEMIDE 40 MG TABLET (FP) PO SCH (09:07)
[2021-01-29 09:43] LABS: BASO % 0.6 % (0-2.0); EOS % 2.5 % (0-4.5); HEMATOCRIT 29.1 % (32.4-45.2); HEMOGLOBIN 9.6 GM/dL (10.7-15.3); MCH 28.6 pg (25.7-33.7); MCHC 33.2 g/dl (32.0-36.0); MEAN CELL VOLUME 86.3 fl (80-96); MEAN PLT VOLUME 7.4 fl (7.5-11.1); MONO % 4.6 % (3.8-10.2); NEUT % 78.3 % (42.8-82.8); PLATELET COUNT 380 10^3/uL (134-434); RBC 3.37 M/mm3 (3.60-5.2); RDW 15.6 % (11.6-15.6); WHITE BLOOD COUNT 7.9 K/mm3 (4.0-10.0)
[2021-01-29 10:11] LABS: ALBUMIN 2.2 g/dl (3.4-5.0); BLOOD UREA NITROGEN 21.4 mg/dL (7-18)
[2021-01-29 10:14] LABS: CREATININE 0.9 mg/dL (0.55-1.3)
[2021-01-29 10:16] LABS: BILIRUBIN,TOTAL 0.9 mg/dL (0.2-1); TOT PROT 6.2 g/dl (6.4-8.2)
[2021-01-29] MEDS ORDERED: cefTRIAXone SODIUM 1 GM VIAL ONE (12:54)
[2021-01-29] MEDS: CEFTRIAXONE 1 GM in DEXTROSE 5%-WATER - 50 ML IVPB SCH (12:55)
[2021-01-29] MEDS ORDERED: VANCOMYCIN/WATER BAGS 1,250 MG/250 ML BAG IVPB SCH (17:00)
[2021-01-29] MEDS ORDERED: VANCOMYCIN/WATER FOR INJ (PEG) 750 MG/150 ML BAG IVPB SCH (17:00)
[2021-01-29] MEDS: MELATONIN 1 MG TABLET PO SCH (21:31)
[2021-01-29] MEDS: ATORVASTATIN CA 10 MG TABLET (FP) PO SCH (21:31)
[2021-01-30] MEDS: GABAPENTIN 300 MG CAPSULE PO SCH ×3 (06:38→21:23)
[2021-01-30] MEDS ORDERED: DEXTROSE 5%-WATER - 50 ML IVPB ONE (10:21)
[2021-01-30] MEDS ORDERED: cefTRIAXone SODIUM 1 GM VIAL ONE (10:21)
[2021-01-30] MEDS: ZINC SULFATE 220 MG CAPSULE (FP) PO SCH (10:22)
[2021-01-30] MEDS: LACTOBACILLUS ACIDOPHILUS 1 TABLET PO SCH (10:22)
[2021-01-30] MEDS: MULTIVITAMINS (DAILY MVI) TABLET (FP) PO SCH (10:22)
[2021-01-30] MEDS: SERTRALINE HCL 25 MG TABLET (FP) PO SCH (10:22)
[2021-01-30] MEDS: APIXABAN 5 MG TABLET PO SCH ×2 (10:22→21:23)
[2021-01-30] MEDS: ASCORBIC ACID 500 MG TABLET (FP) PO SCH ×2 (10:22→21:23)
[2021-01-30] MEDS: FAMOTIDINE 20 MG TABLET PO SCH (10:22)
[2021-01-30] MEDS: FUROSEMIDE 40 MG TABLET (FP) PO SCH (10:22)
[2021-01-30] MEDS ORDERED: diphenhydrAMINE HCL 25 MG CAPSULE (FP) PO ONE (11:00)
[2021-01-30] MEDS: CEFTRIAXONE 1 GM in DEXTROSE 5%-WATER - 50 ML IVPB SCH (11:01)
[2021-01-30] MEDS: ATORVASTATIN CA 10 MG TABLET (FP) PO SCH (21:23)
[2021-01-30] MEDS: diphenhydrAMINE HCL 25 MG CAPSULE (FP) PO PRN (21:23)
[2021-01-30] MEDS: MELATONIN 1 MG TABLET PO SCH (21:23)
[2021-01-31] MEDS: GABAPENTIN 300 MG CAPSULE PO SCH ×3 (06:39→21:33)
[2021-01-31] MEDS: diphenhydrAMINE HCL 25 MG CAPSULE (FP) PO PRN ×2 (07:37→17:56)
[2021-01-31] MEDS: FUROSEMIDE 40 MG TABLET (FP) PO SCH (09:42)
[2021-01-31] MEDS: SERTRALINE HCL 25 MG TABLET (FP) PO SCH (09:42)
[2021-01-31] MEDS: FAMOTIDINE 20 MG TABLET PO SCH (09:42)
[2021-01-31] MEDS: ZINC SULFATE 220 MG CAPSULE (FP) PO SCH (09:42)
[2021-01-31] MEDS: APIXABAN 5 MG TABLET PO SCH ×2 (09:42→21:33)
[2021-01-31] MEDS: LACTOBACILLUS ACIDOPHILUS 1 TABLET PO SCH (09:42)
[2021-01-31] MEDS: ASCORBIC ACID 500 MG TABLET (FP) PO SCH ×2 (09:42→21:33)
[2021-01-31] MEDS: MULTIVITAMINS (DAILY MVI) TABLET (FP) PO SCH (09:43)
[2021-01-31] MEDS: HYDROCORTISONE 2.5% TOPICAL CREAM 30 GM TUBE TP SCH ×2 (12:16→21:34)
[2021-01-31] MEDS: ATORVASTATIN CA 10 MG TABLET (FP) PO SCH (21:33)
[2021-01-31] MEDS: MELATONIN 1 MG TABLET PO SCH (21:34)
[2021-02-01] MEDS: GABAPENTIN 300 MG CAPSULE PO SCH ×3 (05:04→21:55)
[2021-02-01 08:58] LABS: BASO % 0.5 % (0-2.0); EOS % 6.3 % (0-4.5); HEMATOCRIT 32.2 % (32.4-45.2); HEMOGLOBIN 10.7 GM/dL (10.7-15.3); LYMPH % 16.7 % (8-40); MCH 28.6 pg (25.7-33.7); MCHC 33.3 g/dl (32.0-36.0); MEAN CELL VOLUME 85.8 fl (80-96); MEAN PLT VOLUME 7.1 fl (7.5-11.1); MONO % 5.1 % (3.8-10.2); NEUT % 71.4 % (42.8-82.8); PLATELET COUNT 451 10^3/uL (134-434); RBC 3.75 M/mm3 (3.60-5.2); RDW 15.1 % (11.6-15.6); WHITE BLOOD COUNT 9.6 K/mm3 (4.0-10.0)
[2021-02-01] MEDS: FUROSEMIDE 40 MG TABLET (FP) PO SCH (09:09)
[2021-02-01] MEDS: FAMOTIDINE 20 MG TABLET PO SCH (09:09)
[2021-02-01] MEDS: MULTIVITAMINS (DAILY MVI) TABLET (FP) PO SCH (09:10)
[2021-02-01] MEDS: LACTOBACILLUS ACIDOPHILUS 1 TABLET PO SCH (09:10)
[2021-02-01] MEDS: SERTRALINE HCL 25 MG TABLET (FP) PO SCH (09:10)
[2021-02-01] MEDS: ASCORBIC ACID 500 MG TABLET (FP) PO SCH ×2 (09:10→21:55)
[2021-02-01] MEDS: APIXABAN 5 MG TABLET PO SCH ×2 (09:10→21:54)
[2021-02-01] MEDS: ZINC SULFATE 220 MG CAPSULE (FP) PO SCH (09:10)
[2021-02-01] MEDS: HYDROCORTISONE 2.5% TOPICAL CREAM 30 GM TUBE TP SCH ×2 (09:12→21:55)
[2021-02-01 09:14] LABS: ALBUMIN 2.2 g/dl (3.4-5.0); BLOOD UREA NITROGEN 14.4 mg/dL (7-18)
[2021-02-01 09:17] LABS: CREATININE 0.8 mg/dL (0.55-1.3)
[2021-02-01 09:19] LABS: BILIRUBIN,TOTAL 0.4 mg/dL (0.2-1)
[2021-02-01] MEDS: diphenhydrAMINE HCL 25 MG CAPSULE (FP) PO PRN (14:12)
[2021-02-01] MEDS ORDERED: PT OWN MED DRAWER 7, Y5N ONE ×2 (14:55→21:46)
[2021-02-01] MEDS: DAPTOMYCIN 540 MG in SODIUM CHLORIDE 50 ML IVPB SCH (15:02)
[2021-02-01] MEDS: ERTAPENEM SODIUM 1 GM in SODIUM CHLORIDE 50 ML IVPB SCH (16:43)
[2021-02-01] MEDS: MELATONIN 1 MG TABLET PO SCH (21:55)
[2021-02-01] MEDS: LIDOCAINE PATCH REMOVAL MC SCH (21:55)
[2021-02-01] MEDS: ACETAMINOPHEN 325 MG TABLET (FP) PO PRN (22:37)
[2021-02-02] MEDS: GABAPENTIN 300 MG CAPSULE PO SCH ×3 (06:08→22:09)
[2021-02-02] MEDS: ZINC SULFATE 220 MG CAPSULE (FP) PO SCH (10:36)
[2021-02-02] MEDS: APIXABAN 5 MG TABLET PO SCH ×2 (10:36→22:08)
[2021-02-02] MEDS: MULTIVITAMINS (DAILY MVI) TABLET (FP) PO SCH (10:36)
[2021-02-02] MEDS: FUROSEMIDE 40 MG TABLET (FP) PO SCH (10:36)
[2021-02-02] MEDS: ASCORBIC ACID 500 MG TABLET (FP) PO SCH ×2 (10:36→22:09)
[2021-02-02] MEDS: FAMOTIDINE 20 MG TABLET PO SCH (10:36)
[2021-02-02] MEDS: LACTOBACILLUS ACIDOPHILUS 1 TABLET PO SCH (10:36)
[2021-02-02] MEDS: SERTRALINE HCL 25 MG TABLET (FP) PO SCH (10:36)
[2021-02-02] MEDS: LIDOCAINE 5% TOPICAL PATCH TP SCH (10:37)
[2021-02-02] MEDS: HYDROCORTISONE 2.5% TOPICAL CREAM 30 GM TUBE TP SCH ×2 (10:38→22:09)
[2021-02-02] MEDS ORDERED: PT OWN MED DRAWER 7, Y5N ONE (10:57)
[2021-02-02] MEDS: ERTAPENEM SODIUM 1 GM in SODIUM CHLORIDE 50 ML IVPB SCH (11:09)
[2021-02-02] MEDS: DAPTOMYCIN 540 MG in SODIUM CHLORIDE 50 ML IVPB SCH (14:03)
[2021-02-02] MEDS: ACETAMINOPHEN 325 MG TABLET (FP) PO PRN (18:20)
[2021-02-02] MEDS: MELATONIN 1 MG TABLET PO SCH (22:09)
[2021-02-02] MEDS: diphenhydrAMINE HCL 25 MG CAPSULE (FP) PO PRN (22:09)
[2021-02-02] MEDS: LIDOCAINE PATCH REMOVAL MC SCH (22:13)
[2021-02-03] MEDS: GABAPENTIN 300 MG CAPSULE PO SCH ×3 (06:00→22:14)
[2021-02-03] MEDS ORDERED: PT OWN MED DRAWER 7, Y5N ONE (11:01)
[2021-02-03] MEDS: FAMOTIDINE 20 MG TABLET PO SCH (11:07)
[2021-02-03] MEDS: ASCORBIC ACID 500 MG TABLET (FP) PO SCH ×2 (11:07→22:15)
[2021-02-03] MEDS: LACTOBACILLUS ACIDOPHILUS 1 TABLET PO SCH (11:07)
[2021-02-03] MEDS: APIXABAN 5 MG TABLET PO SCH ×2 (11:07→22:14)
[2021-02-03] MEDS: MULTIVITAMINS (DAILY MVI) TABLET (FP) PO SCH (11:07)
[2021-02-03] MEDS: HYDROCORTISONE 2.5% TOPICAL CREAM 30 GM TUBE TP SCH ×2 (11:07→22:14)
[2021-02-03] MEDS: ZINC SULFATE 220 MG CAPSULE (FP) PO SCH (11:07)
[2021-02-03] MEDS: FUROSEMIDE 40 MG TABLET (FP) PO SCH (11:07)
[2021-02-03] MEDS: SERTRALINE HCL 25 MG TABLET (FP) PO SCH (11:07)
[2021-02-03] MEDS: LIDOCAINE 5% TOPICAL PATCH TP SCH (11:08)
[2021-02-03] MEDS: ERTAPENEM SODIUM 1 GM in SODIUM CHLORIDE 50 ML IVPB SCH (11:08)
[2021-02-03] MEDS: DAPTOMYCIN 540 MG in SODIUM CHLORIDE 50 ML IVPB SCH (13:15)
[2021-02-03] MEDS: MELATONIN 1 MG TABLET PO SCH (22:14)
[2021-02-03] MEDS: LIDOCAINE PATCH REMOVAL MC SCH (22:16)
[2021-02-04] MEDS: GABAPENTIN 300 MG CAPSULE PO SCH ×3 (06:05→23:39)
[2021-02-04] MEDS: HYDROCORTISONE 2.5% TOPICAL CREAM 30 GM TUBE TP SCH ×2 (10:40→23:39)
[2021-02-04] MEDS: MULTIVITAMINS (DAILY MVI) TABLET (FP) PO SCH (10:40)
[2021-02-04] MEDS: LACTOBACILLUS ACIDOPHILUS 1 TABLET PO SCH (10:40)
[2021-02-04] MEDS: FUROSEMIDE 40 MG TABLET (FP) PO SCH (10:40)
[2021-02-04] MEDS: LIDOCAINE 5% TOPICAL PATCH TP SCH (10:41)
[2021-02-04] MEDS: APIXABAN 5 MG TABLET PO SCH ×2 (10:41→23:37)
[2021-02-04] MEDS: SERTRALINE HCL 25 MG TABLET (FP) PO SCH (10:41)
[2021-02-04] MEDS: ZINC SULFATE 220 MG CAPSULE (FP) PO SCH (10:41)
[2021-02-04] MEDS: FAMOTIDINE 20 MG TABLET PO SCH (10:41)
[2021-02-04] MEDS: ERTAPENEM SODIUM 1 GM in SODIUM CHLORIDE 50 ML IVPB SCH (10:41)
[2021-02-04] MEDS: ASCORBIC ACID 500 MG TABLET (FP) PO SCH ×2 (10:41→23:37)
[2021-02-04] MEDS: DAPTOMYCIN 540 MG in SODIUM CHLORIDE 50 ML IVPB SCH (14:33)
[2021-02-04] MEDS: MELATONIN 1 MG TABLET PO SCH (23:37)
[2021-02-04] MEDS: LIDOCAINE PATCH REMOVAL MC SCH (23:39)
[2021-02-05] MEDS: GABAPENTIN 300 MG CAPSULE PO SCH ×3 (06:26→21:20)
[2021-02-05] MEDS ORDERED: PT OWN MED DRAWER 7, Y5N ONE (09:16)
[2021-02-05] MEDS: ERTAPENEM SODIUM 1 GM in SODIUM CHLORIDE 50 ML IVPB SCH (09:34)
[2021-02-05] MEDS: SERTRALINE HCL 25 MG TABLET (FP) PO SCH (09:35)
[2021-02-05] MEDS: LACTOBACILLUS ACIDOPHILUS 1 TABLET PO SCH (09:35)
[2021-02-05] MEDS: APIXABAN 5 MG TABLET PO SCH ×2 (09:35→21:20)
[2021-02-05] MEDS: FAMOTIDINE 20 MG TABLET PO SCH (09:35)
[2021-02-05] MEDS: ASCORBIC ACID 500 MG TABLET (FP) PO SCH ×2 (09:35→21:20)
[2021-02-05] MEDS: ZINC SULFATE 220 MG CAPSULE (FP) PO SCH (09:36)
[2021-02-05] MEDS: MULTIVITAMINS (DAILY MVI) TABLET (FP) PO SCH (09:36)
[2021-02-05] MEDS: FUROSEMIDE 40 MG TABLET (FP) PO SCH (09:38)
[2021-02-05] MEDS: LIDOCAINE 5% TOPICAL PATCH TP SCH (09:38)
[2021-02-05] MEDS: HYDROCORTISONE 2.5% TOPICAL CREAM 30 GM TUBE TP SCH ×2 (09:38→21:20)
[2021-02-05] MEDS: DAPTOMYCIN 540 MG in SODIUM CHLORIDE 50 ML IVPB SCH (14:33)
[2021-02-05 17:35] VITALS: BMI 27.7
[2021-02-05] MEDS: LIDOCAINE PATCH REMOVAL MC SCH (21:20)
[2021-02-05] MEDS: diphenhydrAMINE HCL 25 MG CAPSULE (FP) PO PRN (21:20)
[2021-02-05] MEDS: MELATONIN 1 MG TABLET PO SCH (21:20)
[2021-02-06] MEDS: GABAPENTIN 300 MG CAPSULE PO SCH ×3 (06:18→21:35)
[2021-02-06] MEDS: AMINO ACIDS/PROTEIN HYDROLYS 30 ML LIQUID.PKT PO SCH (08:25)
[2021-02-06] MEDS: ZINC SULFATE 220 MG CAPSULE (FP) PO SCH (10:23)
[2021-02-06] MEDS: SERTRALINE HCL 25 MG TABLET (FP) PO SCH (10:23)
[2021-02-06] MEDS: FUROSEMIDE 40 MG TABLET (FP) PO SCH (10:23)
[2021-02-06] MEDS: MULTIVITAMINS (DAILY MVI) TABLET (FP) PO SCH (10:23)
[2021-02-06] MEDS: APIXABAN 5 MG TABLET PO SCH ×2 (10:23→21:35)
[2021-02-06] MEDS: LIDOCAINE 5% TOPICAL PATCH TP SCH (10:23)
[2021-02-06] MEDS: ASCORBIC ACID 500 MG TABLET (FP) PO SCH ×2 (10:23→21:35)
[2021-02-06] MEDS: FAMOTIDINE 20 MG TABLET PO SCH (10:23)
[2021-02-06] MEDS: LACTOBACILLUS ACIDOPHILUS 1 TABLET PO SCH (10:23)
[2021-02-06] MEDS: ERTAPENEM SODIUM 1 GM in SODIUM CHLORIDE 50 ML IVPB SCH (10:24)
[2021-02-06] MEDS: HYDROCORTISONE 2.5% TOPICAL CREAM 30 GM TUBE TP SCH ×2 (10:24→21:35)
[2021-02-06] MEDS: DAPTOMYCIN 540 MG in SODIUM CHLORIDE 50 ML IVPB SCH (14:22)
[2021-02-06] MEDS: MELATONIN 1 MG TABLET PO SCH (21:36)
[2021-02-06] MEDS: diphenhydrAMINE HCL 25 MG CAPSULE (FP) PO PRN (21:37)
[2021-02-06] MEDS: LIDOCAINE PATCH REMOVAL MC SCH (21:39)
[2021-02-07] MEDS: GABAPENTIN 300 MG CAPSULE PO SCH ×3 (06:41→22:09)
[2021-02-07] MEDS: AMINO ACIDS/PROTEIN HYDROLYS 30 ML LIQUID.PKT PO SCH (08:57)
[2021-02-07] MEDS ORDERED: PT OWN MED DRAWER 7, Y5N ONE ×2 (09:04→09:42)
[2021-02-07] MEDS: MULTIVITAMINS (DAILY MVI) TABLET (FP) PO SCH (09:51)
[2021-02-07] MEDS: FUROSEMIDE 40 MG TABLET (FP) PO SCH (09:51)
[2021-02-07] MEDS: ASCORBIC ACID 500 MG TABLET (FP) PO SCH ×2 (09:51→22:09)
[2021-02-07] MEDS: LACTOBACILLUS ACIDOPHILUS 1 TABLET PO SCH (09:51)
[2021-02-07] MEDS: APIXABAN 5 MG TABLET PO SCH ×2 (09:51→22:09)
[2021-02-07] MEDS: ZINC SULFATE 220 MG CAPSULE (FP) PO SCH (09:51)
[2021-02-07] MEDS: SERTRALINE HCL 25 MG TABLET (FP) PO SCH (09:51)
[2021-02-07] MEDS: FAMOTIDINE 20 MG TABLET PO SCH (09:51)
[2021-02-07] MEDS: ERTAPENEM SODIUM 1 GM in SODIUM CHLORIDE 50 ML IVPB SCH (09:52)
[2021-02-07] MEDS: HYDROCORTISONE 2.5% TOPICAL CREAM 30 GM TUBE TP SCH ×2 (09:52→22:09)
[2021-02-07] MEDS: LIDOCAINE 5% TOPICAL PATCH TP SCH (09:52)
[2021-02-07] MEDS: DAPTOMYCIN 540 MG in SODIUM CHLORIDE 50 ML IVPB SCH (13:36)
[2021-02-07 14:25] VITALS: BP 116/60; PULSE 79; TEMP 98.8
[2021-02-07] MEDS: MELATONIN 1 MG TABLET PO SCH (22:09)
[2021-02-07] MEDS: LIDOCAINE PATCH REMOVAL MC SCH (22:10)
== END 2021-02-07 23:00 | DRG 863 ==
LOC: JER 15:00 → JERBED 20:16 → J6S 01-29 04:13
PROVIDERS: ADMIT Internal Medicine; ATTEND Family Medicine
PROC: 0J9N0ZX Drainage of Right Lower Leg Subcutaneous Tissue and Fascia, Open Approach, Diagnostic (ICD-10-PCS; principal; 2021-02-04)
PROC: 02HV33Z Insertion of Infusion Device into Superior Vena Cava, Percutaneous Approach (ICD-10-PCS; 2021-02-05)
PROC: B518ZZA Fluoroscopy of Superior Vena Cava, Guidance (ICD-10-PCS; 2021-02-05)
DX: T81.49XA Infection following a procedure, other surgical site, initial encounter (principal); N39.0 Urinary tract infection, site not specified; L02.415 Cutaneous abscess of right lower limb; L03.115 Cellulitis of right lower limb; Z16.12 Extended spectrum beta lactamase (ESBL) resistance; E78.5 Hyperlipidemia, unspecified; I11.0 Hypertensive heart disease with heart failure; J44.9 Chronic obstructive pulmonary disease, unspecified; K21.9 Gastro-esophageal reflux disease without esophagitis; B95.62 Methicillin resistant Staphylococcus aureus infection as the cause of diseases classified elsewhere; I50.9 Heart failure, unspecified; Y83.9 Surgical procedure, unspecified as the cause of abnormal reaction of the patient, or of later complication, without mention of misadventure at the time of the procedure
CPT/HCPCS: 36415; 36569; 73590-TC-RT-FY; 80053; 81003; 83605; 85025; 87040; 87070; 87086; 87186; 87205; 99285-25; C9803; J0131; J0878; U0003; U0005

== ENCOUNTER 2021-10-29 14:09 | Inpatient (IN) | payer OTHER ==
[2021-10-29] MEDS ORDERED: VANCOMYCIN 1 GM in D5W (PRE-DOCKED) 1,000 MG/250 ML IVPB ONE (14:50)
[2021-10-29] MEDS ORDERED: PIPERACILLIN/TAZOB 4.5 GM 4.5 GM in DEXTROSE 5%-WATER 100 ML IVPB ONE (14:51)
[2021-10-29] MEDS ORDERED: ACETAMINOPHEN 1000 MG/100 ML BAG IVPB ONE (14:51)
[2021-10-29 15:28] LABS: BASO % 0.7 % (0-2.0); EOS % 2.5 % (0-4.5); HEMATOCRIT 31.3 % (32.4-45.2); HEMOGLOBIN 10.1 GM/dL (10.7-15.3); LYMPH % 23.3 % (8-40); MCH 26.1 pg (25.7-33.7); MCHC 32.2 g/dl (32.0-36.0); MEAN CELL VOLUME 81.3 fl (80-96); MONO % 9.4 % (3.8-10.2); NEUT % 64.1 % (42.8-82.8); PLATELET COUNT 365 10^3/uL (134-434); RBC 3.85 M/mm3 (3.60-5.2); RDW 16.6 % (11.6-15.6); WHITE BLOOD COUNT 5.6 K/mm3 (4.0-10.0)
[2021-10-29 15:34] LABS: INR 1.21 (0.83-1.09)
[2021-10-29 15:36] LABS: ACTIVATED PTT 27.9 SECONDS (25.2-36.5)
[2021-10-29 15:42] LABS: ALBUMIN 2.8 g/dl (3.4-5.0); CALCIUM 10.1 mg/dL (8.5-10.1)
[2021-10-29 15:44] LABS: BLOOD UREA NITROGEN 23.6 mg/dL (7-18)
[2021-10-29] MEDS ORDERED: VANCOMYCIN 1 GRAM (PRE-DOCKED) 1,000 MG/250 ML BAG IVPB ONE (15:44)
[2021-10-29] MEDS ORDERED: ACETAMINOPHEN INJECTION 100 ML IVPB ONE (15:44)
[2021-10-29] MEDS ORDERED: PIPERACILLIN/TAZOB 4.5 GM 4.5 GM/100 ML BAG IVPB ONE (15:44)
[2021-10-29 15:45] LABS: CREATININE 0.6 mg/dL (0.55-1.3)
[2021-10-29 15:47] LABS: BILIRUBIN,TOTAL 0.4 mg/dL (0.2-1); TOT PROT 7.1 g/dl (6.4-8.2)
[2021-10-29] MEDS ORDERED: ACETAMINOPHEN 500 MG TABLET (FP) PO PRN (17:22)
[2021-10-29] MEDS ORDERED: traMADol HCL 50 MG TABLET PO PRN (17:22)
[2021-10-29] MEDS: DOCUSATE SODIUM 100 MG CAPSULE (FP) PO SCH (20:02)
[2021-10-29] MEDS: ENOXAPARIN NA (PORCINE) 80 MG/0.8 ML DISP.SYRIN SQ SCH (23:00)
[2021-10-29] MEDS ORDERED: ATORVASTATIN CA 10 MG TABLET (FP) ONE (23:03)
[2021-10-29] MEDS: MELATONIN 1 MG TABLET PO SCH (23:03)
[2021-10-29] MEDS ORDERED: GABAPENTIN 300 MG CAPSULE ONE (23:04)
[2021-10-29] MEDS: ATORVASTATIN CA 10 MG TABLET (FP) PO SCH (23:09)
[2021-10-29] MEDS: GABAPENTIN 300 MG CAPSULE PO SCH (23:09)
[2021-10-30] MEDS ORDERED: GABAPENTIN 300 MG CAPSULE ONE (06:06)
[2021-10-30] MEDS ORDERED: ENOXAPARIN NA (PORCINE) 80 MG/0.8 ML DISP.SYRIN SQ ONE (06:06)
[2021-10-30] MEDS: ENOXAPARIN NA (PORCINE) 80 MG/0.8 ML DISP.SYRIN SQ SCH ×2 (06:12→18:02)
[2021-10-30] MEDS: GABAPENTIN 300 MG CAPSULE PO SCH ×3 (06:12→22:00)
[2021-10-30 06:42] LABS: BASO % 0.6 % (0-2.0); EOS % 2.8 % (0-4.5); HEMATOCRIT 31.2 % (32.4-45.2); LYMPH % 14.6 % (8-40); MCH 26.2 pg (25.7-33.7); MCHC 32.2 g/dl (32.0-36.0); MEAN CELL VOLUME 81.3 fl (80-96); MEAN PLT VOLUME 6.9 fl (7.5-11.1); MONO % 5.9 % (3.8-10.2); NEUT % 76.1 % (42.8-82.8); PLATELET COUNT 356 10^3/uL (134-434); RBC 3.83 M/mm3 (3.60-5.2); RDW 16.7 % (11.6-15.6); WHITE BLOOD COUNT 5.7 K/mm3 (4.0-10.0)
[2021-10-30 06:53] LABS: INR 1.23 (0.83-1.09); PROTHROMBIN TIME (PATIENT) 14.2 SEC (9.7-13.0)
[2021-10-30 06:56] LABS: ACTIVATED PTT 34.4 SECONDS (25.2-36.5)
[2021-10-30 07:02] LABS: CALCIUM 9.6 mg/dL (8.5-10.1)
[2021-10-30 07:03] LABS: ALBUMIN 2.5 g/dl (3.4-5.0); BLOOD UREA NITROGEN 24.4 mg/dL (7-18); MAGNESIUM 2.1 mg/dL (1.8-2.4)
[2021-10-30 07:06] LABS: CREATININE 0.7 mg/dL (0.55-1.3)
[2021-10-30 07:07] LABS: TOT PROT 6.4 g/dl (6.4-8.2)
[2021-10-30 07:08] LABS: BILIRUBIN,TOTAL 0.4 mg/dL (0.2-1)
[2021-10-30] MEDS: FUROSEMIDE 40 MG TABLET (FP) PO SCH (11:00)
[2021-10-30] MEDS: SERTRALINE HCL 25 MG TABLET (FP) PO SCH (11:00)
[2021-10-30] MEDS: MULTIVITAMINS (DAILY MVI) TABLET (FP) PO SCH (11:00)
[2021-10-30] MEDS: FAMOTIDINE 20 MG TABLET PO SCH (11:00)
[2021-10-30] MEDS: LACTOBACILLUS ACIDOPHILUS 1 TABLET PO SCH (11:00)
[2021-10-30] MEDS ORDERED: FUROSEMIDE 40 MG TABLET (FP) ONE (11:30)
[2021-10-30] MEDS ORDERED: FAMOTIDINE 20 MG TABLET ONE (11:30)
[2021-10-30] MEDS ORDERED: MULTIVITAMINS (DAILY MVI) TABLET (FP) ONE (11:30)
[2021-10-30] MEDS: VANCOMYCIN/WATER 1250 MG 1,250 MG/250 ML BAG IVPB SCH (16:15)
[2021-10-30] MEDS ORDERED: PIPERACILLIN/TAZOBACTAM 3.375 GM VIAL IVPB ONE (17:55)
[2021-10-30] MEDS ORDERED: DEXTROSE 5%-WATER - 50 ML IVPB ONE (17:57)
[2021-10-30] MEDS: PIPERACILLIN/TAZOB 3.375 GM 3.375 GM in DEXTROSE 5%-WATER - 50 ML IVPB SCH (18:04)
[2021-10-30] MEDS: DOCUSATE SODIUM 100 MG CAPSULE (FP) PO SCH (21:59)
[2021-10-30] MEDS: MELATONIN 1 MG TABLET PO SCH (22:00)
[2021-10-30] MEDS: ATORVASTATIN CA 10 MG TABLET (FP) PO SCH (22:00)
[2021-10-31] MEDS ORDERED: PIPERACILLIN/TAZOBACTAM 3.375 GM VIAL IVPB ONE ×3 (01:07→13:15)
[2021-10-31] MEDS ORDERED: DEXTROSE 5%-WATER - 50 ML IVPB ONE ×3 (01:08→13:15)
[2021-10-31] MEDS: PIPERACILLIN/TAZOB 3.375 GM 3.375 GM in DEXTROSE 5%-WATER - 50 ML IVPB SCH ×3 (01:48→17:18)
[2021-10-31] MEDS: ENOXAPARIN NA (PORCINE) 80 MG/0.8 ML DISP.SYRIN SQ SCH ×2 (05:21→17:17)
[2021-10-31] MEDS: GABAPENTIN 300 MG CAPSULE PO SCH ×3 (05:21→21:18)
[2021-10-31] MEDS: VANCOMYCIN/WATER 1250 MG 1,250 MG/250 ML BAG IVPB SCH ×2 (06:12→15:21)
[2021-10-31] MEDS: FUROSEMIDE 40 MG TABLET (FP) PO SCH (09:30)
[2021-10-31] MEDS: SERTRALINE HCL 25 MG TABLET (FP) PO SCH (09:31)
[2021-10-31] MEDS: LACTOBACILLUS ACIDOPHILUS 1 TABLET PO SCH (09:31)
[2021-10-31] MEDS: FAMOTIDINE 20 MG TABLET PO SCH (09:31)
[2021-10-31] MEDS: MULTIVITAMINS (DAILY MVI) TABLET (FP) PO SCH (09:31)
[2021-10-31] MEDS: MELATONIN 1 MG TABLET PO SCH (21:18)
[2021-10-31] MEDS: ATORVASTATIN CA 10 MG TABLET (FP) PO SCH (21:18)
[2021-10-31] MEDS: DOCUSATE SODIUM 100 MG CAPSULE (FP) PO SCH (21:18)
[2021-11-01] MEDS ORDERED: PIPERACILLIN/TAZOBACTAM 3.375 GM VIAL IVPB ONE ×3 (00:21→16:35)
[2021-11-01] MEDS ORDERED: DEXTROSE 5%-WATER - 50 ML IVPB ONE ×3 (00:21→16:36)
[2021-11-01] MEDS: PIPERACILLIN/TAZOB 3.375 GM 3.375 GM in DEXTROSE 5%-WATER - 50 ML IVPB SCH ×3 (01:24→18:17)
[2021-11-01] MEDS: VANCOMYCIN/WATER 1250 MG 1,250 MG/250 ML BAG IVPB SCH ×2 (04:06→16:28)
[2021-11-01] MEDS: ENOXAPARIN NA (PORCINE) 80 MG/0.8 ML DISP.SYRIN SQ SCH ×2 (05:38→18:14)
[2021-11-01] MEDS: GABAPENTIN 300 MG CAPSULE PO SCH ×3 (05:38→21:24)
[2021-11-01] MEDS: SERTRALINE HCL 25 MG TABLET (FP) PO SCH (09:42)
[2021-11-01] MEDS: FUROSEMIDE 40 MG TABLET (FP) PO SCH (09:42)
[2021-11-01] MEDS: FAMOTIDINE 20 MG TABLET PO SCH (09:42)
[2021-11-01] MEDS: LACTOBACILLUS ACIDOPHILUS 1 TABLET PO SCH (09:42)
[2021-11-01] MEDS: MULTIVITAMINS (DAILY MVI) TABLET (FP) PO SCH (09:42)
[2021-11-01] MEDS: ATORVASTATIN CA 10 MG TABLET (FP) PO SCH (21:23)
[2021-11-01] MEDS: MELATONIN 1 MG TABLET PO SCH (21:23)
[2021-11-01] MEDS: DOCUSATE SODIUM 100 MG CAPSULE (FP) PO SCH (21:23)
[2021-11-02] MEDS ORDERED: DEXTROSE 5%-WATER - 50 ML IVPB ONE ×3 (01:01→17:06)
[2021-11-02] MEDS ORDERED: PIPERACILLIN/TAZOBACTAM 3.375 GM VIAL IVPB ONE ×3 (01:01→17:06)
[2021-11-02] MEDS: PIPERACILLIN/TAZOB 3.375 GM 3.375 GM in DEXTROSE 5%-WATER - 50 ML IVPB SCH ×3 (01:19→17:17)
[2021-11-02] MEDS: VANCOMYCIN/WATER 1250 MG 1,250 MG/250 ML BAG IVPB SCH ×2 (03:48→15:15)
[2021-11-02] MEDS: ENOXAPARIN NA (PORCINE) 80 MG/0.8 ML DISP.SYRIN SQ SCH ×2 (05:38→17:17)
[2021-11-02] MEDS: GABAPENTIN 300 MG CAPSULE PO SCH ×3 (05:38→23:22)
[2021-11-02 09:08] LABS: BASO % 1.2 % (0-2.0); EOS % 3.4 % (0-4.5); HEMATOCRIT 31.6 % (32.4-45.2); HEMOGLOBIN 10.5 GM/dL (10.7-15.3); LYMPH % 23.5 % (8-40); MCHC 33.2 g/dl (32.0-36.0); MEAN CELL VOLUME 81.2 fl (80-96); MONO % 9.1 % (3.8-10.2); NEUT % 62.8 % (42.8-82.8); PLATELET COUNT 340 10^3/uL (134-434); RBC 3.89 M/mm3 (3.60-5.2); RDW 16.6 % (11.6-15.6)
[2021-11-02] MEDS: MULTIVITAMINS (DAILY MVI) TABLET (FP) PO SCH (09:25)
[2021-11-02] MEDS: FAMOTIDINE 20 MG TABLET PO SCH (09:25)
[2021-11-02] MEDS: SERTRALINE HCL 25 MG TABLET (FP) PO SCH (09:25)
[2021-11-02] MEDS: FUROSEMIDE 40 MG TABLET (FP) PO SCH (09:25)
[2021-11-02] MEDS: LACTOBACILLUS ACIDOPHILUS 1 TABLET PO SCH (09:25)
[2021-11-02 10:07] LABS: CALCIUM 10.2 mg/dL (8.5-10.1)
[2021-11-02 10:22] LABS: CREATININE 0.8 mg/dL (0.55-1.3)
[2021-11-02] MEDS: ATORVASTATIN CA 10 MG TABLET (FP) PO SCH (23:22)
[2021-11-02] MEDS: DOCUSATE SODIUM 100 MG CAPSULE (FP) PO SCH (23:22)
[2021-11-02] MEDS: MELATONIN 1 MG TABLET PO SCH (23:22)
[2021-11-03] MEDS ORDERED: PIPERACILLIN/TAZOBACTAM 3.375 GM VIAL IVPB ONE ×3 (02:11→17:02)
[2021-11-03] MEDS ORDERED: DEXTROSE 5%-WATER - 50 ML IVPB ONE ×3 (02:11→17:02)
[2021-11-03] MEDS: PIPERACILLIN/TAZOB 3.375 GM 3.375 GM in DEXTROSE 5%-WATER - 50 ML IVPB SCH ×3 (02:26→17:06)
[2021-11-03] MEDS: VANCOMYCIN/WATER 1250 MG 1,250 MG/250 ML BAG IVPB SCH (04:59)
[2021-11-03] MEDS: GABAPENTIN 300 MG CAPSULE PO SCH ×3 (05:29→21:33)
[2021-11-03 08:54] LABS: ACTIVATED PTT 38.8 SECONDS (25.2-36.5); INR 1.08 (0.83-1.09); PROTHROMBIN TIME (PATIENT) 12.4 SEC (9.7-13.0)
[2021-11-03] MEDS: FUROSEMIDE 40 MG TABLET (FP) PO SCH (09:32)
[2021-11-03] MEDS: MULTIVITAMINS (DAILY MVI) TABLET (FP) PO SCH (09:33)
[2021-11-03] MEDS: LACTOBACILLUS ACIDOPHILUS 1 TABLET PO SCH (09:33)
[2021-11-03] MEDS: SERTRALINE HCL 25 MG TABLET (FP) PO SCH (09:33)
[2021-11-03] MEDS: FAMOTIDINE 20 MG TABLET PO SCH (09:33)
[2021-11-03] MEDS ORDERED: FERRIC CARBOXYMALTOSE 750 MG in SODIUM CHLORIDE 250 ML IVPB ONE (19:52)
[2021-11-03] MEDS ORDERED: DEXAMETHASONE SOD PHOSPHATE 10 MG/1 ML VIAL IVPB ONE (19:56)
[2021-11-03] MEDS: MELATONIN 1 MG TABLET PO SCH (21:33)
[2021-11-03] MEDS: ATORVASTATIN CA 10 MG TABLET (FP) PO SCH (21:33)
[2021-11-03] MEDS: DOCUSATE SODIUM 100 MG CAPSULE (FP) PO SCH (21:33)
[2021-11-04] MEDS ORDERED: DEXTROSE 5%-WATER - 50 ML IVPB ONE ×3 (01:07→23:06)
[2021-11-04] MEDS ORDERED: PIPERACILLIN/TAZOBACTAM 3.375 GM VIAL IVPB ONE ×3 (01:07→23:06)
[2021-11-04] MEDS: PIPERACILLIN/TAZOB 3.375 GM 3.375 GM in DEXTROSE 5%-WATER - 50 ML IVPB SCH ×4 (01:31→23:09)
[2021-11-04] MEDS: GABAPENTIN 300 MG CAPSULE PO SCH ×2 (06:11→15:12)
[2021-11-04 09:11] LABS: HEMATOCRIT 31.9 % (32.4-45.2); HEMOGLOBIN 10.6 GM/dL (10.7-15.3); INR 1.01 (0.83-1.09); MCH 26.7 pg (25.7-33.7); MCHC 33.2 g/dl (32.0-36.0); MEAN CELL VOLUME 80.3 fl (80-96); PLATELET COUNT 373 10^3/uL (134-434); PROTHROMBIN TIME (PATIENT) 11.6 SEC (9.7-13.0); RBC 3.98 M/mm3 (3.60-5.2); RDW 16.7 % (11.6-15.6); WHITE BLOOD COUNT 4.5 K/mm3 (4.0-10.0)
[2021-11-04 09:14] LABS: ACTIVATED PTT 35.3 SECONDS (25.2-36.5)
[2021-11-04] MEDS ORDERED: DEXTROSE 5%-NORMAL SALINE 1,000 ML IV SCH ×2 (10:00→22:23)
[2021-11-04 10:06] LABS: ALBUMIN 2.7 g/dl (3.4-5.0); BLOOD UREA NITROGEN 21.3 mg/dL (7-18); CALCIUM 10.8 mg/dL (8.5-10.1)
[2021-11-04 10:09] LABS: CREATININE 0.7 mg/dL (0.55-1.3)
[2021-11-04 10:10] LABS: TOT PROT 6.8 g/dl (6.4-8.2)
[2021-11-04 10:11] LABS: BILIRUBIN,TOTAL 0.4 mg/dL (0.2-1)
[2021-11-04] MEDS: LACTOBACILLUS ACIDOPHILUS 1 TABLET PO SCH (10:19)
[2021-11-04] MEDS: SERTRALINE HCL 25 MG TABLET (FP) PO SCH (10:20)
[2021-11-04] MEDS: FAMOTIDINE 20 MG TABLET PO SCH (10:20)
[2021-11-04] MEDS: FUROSEMIDE 40 MG TABLET (FP) PO SCH (10:20)
[2021-11-04] MEDS: MULTIVITAMINS (DAILY MVI) TABLET (FP) PO SCH (10:20)
[2021-11-04] MEDS ORDERED: LIDOCAINE HCL/PF 1% SDV 5ML VIAL ONE (16:24)
[2021-11-04] MEDS ORDERED: ROPIVACAINE HCL 0.5% 30ML VIAL ONE (16:24)
[2021-11-04] MEDS ORDERED: ONDANSETRON 4 MG/2 ML VIAL IVPUSH PRN ×3 (16:44→22:23)
[2021-11-04] MEDS ORDERED: ROCURONIUM BROMIDE 50 MG/5 ML SYRINGE ONE (17:12)
[2021-11-04] MEDS ORDERED: PROPOFOL 20 ML ONE (17:12)
[2021-11-04] MEDS ORDERED: FENTANYL CITRATE/PF 50 MCG/ML VIAL ONE ×3 (17:12→21:58)
[2021-11-04] MEDS ORDERED: VANCOMYCIN 1,000 MG VIAL (RESTRICTED TO ID ONLY) IVPB ONE (17:25)
[2021-11-04] MEDS ORDERED: ONDANSETRON 4 MG/2 ML VIAL ONE (17:38)
[2021-11-04] MEDS ORDERED: DEXAMETHASONE SOD PHOSPHATE 4 MG/1 ML VIAL ONE (17:38)
[2021-11-04] MEDS ORDERED: VANCOMYCIN 1,000 MG VIAL (RESTRICTED TO ID ONLY) ONE ×3 (17:39→19:00)
[2021-11-04] MEDS ORDERED: HYDROmorphone HCl 2 MG/ML VIAL ONE (18:33)
[2021-11-04] MEDS ORDERED: GENTAMICIN SO4 80 MG/2 ML VIAL ONE (18:50)
[2021-11-04] MEDS ORDERED: LIDOCAINE HCL/PF 2% SDV 5ML VIAL ONE (18:55)
[2021-11-04] MEDS ORDERED: KETAMINE HCL 200 MG/20 ML VIAL ONE (19:28)
[2021-11-04] MEDS ORDERED: THROMBIN (BOVINE) 5,000 UNIT VIAL TP ONE (19:46)
[2021-11-04] MEDS ORDERED: MAGNESIUM HYDROX 2400MG/30ML ORAL SUSPENSION 30 ML CUP PO PRN (22:15)
[2021-11-04] MEDS ORDERED: MAG HYDROX/AL HYDROX/SIMETH 30 ML UNIT-DOSE CUP PO PRN (22:15)
[2021-11-04 23:43] LABS: BASO % 0.1 % (0-2.0); HEMATOCRIT 35.8 % (32.4-45.2); HEMOGLOBIN 11.7 GM/dL (10.7-15.3); LYMPH % 5.6 % (8-40); MCH 27.1 pg (25.7-33.7); MCHC 32.7 g/dl (32.0-36.0); MEAN CELL VOLUME 82.9 fl (80-96); MEAN PLT VOLUME 6.8 fl (7.5-11.1); MONO % 4.1 % (3.8-10.2); NEUT % 90.2 % (42.8-82.8); PLATELET COUNT 325 10^3/uL (134-434); RBC 4.33 M/mm3 (3.60-5.2); RDW 16.1 % (11.6-15.6); WHITE BLOOD COUNT 20.4 K/mm3 (4.0-10.0)
[2021-11-05] MEDS: VASOPRESSIN 40 UNITS/100 ML BAG IV SCH (02:00)
[2021-11-05 02:26] LABS: ANISOCYTOSIS 1+; MACROCYTOSIS 0; TEAR DROP CELLS 1+
[2021-11-05] MEDS: MUPIROCIN 2% TOPICAL OINTMENT FOR DECOLONIZATION NS SCH ×3 (02:26→22:56)
[2021-11-05] MEDS ORDERED: LACTATED RINGERS SOLUTION 1000 ML INFUS.BAG IV ONE (04:39)
[2021-11-05] MEDS ORDERED: DEXTROSE 5%-WATER - 50 ML IVPB ONE ×3 (05:32→23:32)
[2021-11-05] MEDS ORDERED: PIPERACILLIN/TAZOBACTAM 3.375 GM VIAL IVPB ONE ×3 (05:32→23:32)
[2021-11-05] MEDS: GABAPENTIN 300 MG CAPSULE PO SCH ×4 (05:42→23:34)
[2021-11-05] MEDS: PIPERACILLIN/TAZOB 3.375 GM 3.375 GM in DEXTROSE 5%-WATER - 50 ML IVPB SCH ×3 (06:01→23:34)
[2021-11-05 07:31] LABS: HEMATOCRIT 32.7 % (32.4-45.2); HEMOGLOBIN 10.8 GM/dL (10.7-15.3); MCH 27.4 pg (25.7-33.7); MCHC 33.1 g/dl (32.0-36.0); MEAN CELL VOLUME 82.7 fl (80-96); MEAN PLT VOLUME 7.1 fl (7.5-11.1); PLATELET COUNT 321 10^3/uL (134-434); RBC 3.95 M/mm3 (3.60-5.2); WHITE BLOOD COUNT 12.6 K/mm3 (4.0-10.0)
[2021-11-05 07:38] LABS: INR 1.03 (0.83-1.09); PROTHROMBIN TIME (PATIENT) 11.9 SEC (9.7-13.0)
[2021-11-05 07:41] LABS: ACTIVATED PTT 28.5 SECONDS (25.2-36.5)
[2021-11-05 07:55] LABS: BLOOD UREA NITROGEN 20.3 mg/dL (7-18); CALCIUM 9.7 mg/dL (8.5-10.1)
[2021-11-05 07:56] LABS: MAGNESIUM 2.1 mg/dL (1.8-2.4)
[2021-11-05 07:59] LABS: CREATININE 0.9 mg/dL (0.55-1.3); PHOSPHOROUS 3.6 mg/dL (2.5-4.9)
[2021-11-05] MEDS: LACTOBACILLUS ACIDOPHILUS 1 TABLET PO SCH (09:28)
[2021-11-05] MEDS: SERTRALINE HCL 25 MG TABLET (FP) PO SCH (09:28)
[2021-11-05] MEDS: SENNOSIDES/DOCUSATE COMBO (SENNA PLUS) TABLET (UD) PO SCH ×2 (09:28→23:26)
[2021-11-05] MEDS: FAMOTIDINE 20 MG TABLET PO SCH (09:29)
[2021-11-05] MEDS: LACTATED RINGERS SOLUTION 1,000 ML/1,000 ML INFUS.BAG IV SCH (09:29)
[2021-11-05] MEDS: ASPIRIN COATED 81 MG TABLET.EC PO SCH ×2 (09:29→23:34)
[2021-11-05] MEDS: MULTIVITAMINS (DAILY MVI) TABLET (FP) PO SCH (09:29)
[2021-11-05] MEDS: oxyCODONE HCL 5 MG TABLET PO PRN (09:31)
[2021-11-05] MEDS ORDERED: PANTOPRAZOLE 40 MG TABLET PO SCH (10:00)
[2021-11-05] MEDS ORDERED: MUPIROCIN 2% TOPICAL OINTMENT FOR DECOLONIZATION NS SCH (10:00)
[2021-11-05] MEDS: ATORVASTATIN CA 10 MG TABLET (FP) PO SCH ×2 (16:13→23:34)
[2021-11-05] MEDS: DOCUSATE SODIUM 100 MG CAPSULE (FP) PO SCH ×2 (16:13→23:25)
[2021-11-05] MEDS: MELATONIN 1 MG TABLET PO SCH ×2 (16:13→23:34)
[2021-11-05] MEDS ORDERED: CHLORHEXIDINE GLUCONATE 4% CLEANSER FOR DECOLONIZATION TP SCH (22:00)
[2021-11-05] MEDS: CHLORHEXIDINE GLUCONATE 4% CLEANSER FOR DECOLONIZATION TP SCH (23:26)
[2021-11-06 07:17] LABS: HEMATOCRIT 23.8 % (32.4-45.2); MCH 27.9 pg (25.7-33.7); MCHC 33.7 g/dl (32.0-36.0); MEAN CELL VOLUME 82.6 fl (80-96); MEAN PLT VOLUME 7.4 fl (7.5-11.1); PLATELET COUNT 213 10^3/uL (134-434); RBC 2.88 M/mm3 (3.60-5.2); WHITE BLOOD COUNT 6.2 K/mm3 (4.0-10.0)
[2021-11-06] MEDS: GABAPENTIN 300 MG CAPSULE PO SCH ×3 (07:29→21:43)
[2021-11-06] MEDS: PIPERACILLIN/TAZOB 3.375 GM 3.375 GM in DEXTROSE 5%-WATER - 50 ML IVPB SCH ×3 (07:29→23:24)
[2021-11-06 07:31] LABS: CALCIUM 9.5 mg/dL (8.5-10.1)
[2021-11-06] MEDS ORDERED: DEXTROSE 5%-WATER - 50 ML IVPB ONE ×3 (07:31→21:07)
[2021-11-06] MEDS ORDERED: PIPERACILLIN/TAZOBACTAM 3.375 GM VIAL IVPB ONE ×3 (07:31→21:07)
[2021-11-06 07:32] LABS: BLOOD UREA NITROGEN 14.8 mg/dL (7-18); MAGNESIUM 1.9 mg/dL (1.8-2.4)
[2021-11-06 07:35] LABS: CREATININE 0.7 mg/dL (0.55-1.3); PHOSPHOROUS 1.8 mg/dL (2.5-4.9)
[2021-11-06 07:36] LABS: BILIRUBIN,TOTAL 0.3 mg/dL (0.2-1); TOT PROT 4.9 g/dl (6.4-8.2)
[2021-11-06] MEDS: LACTOBACILLUS ACIDOPHILUS 1 TABLET PO SCH (10:50)
[2021-11-06] MEDS: VASOPRESSIN 40 UNITS/100 ML BAG IV SCH (10:50)
[2021-11-06] MEDS: FAMOTIDINE 20 MG TABLET PO SCH (10:50)
[2021-11-06] MEDS: ASPIRIN COATED 81 MG TABLET.EC PO SCH ×2 (10:50→21:42)
[2021-11-06] MEDS: MUPIROCIN 2% TOPICAL OINTMENT FOR DECOLONIZATION NS SCH ×2 (10:50→21:42)
[2021-11-06] MEDS: SERTRALINE HCL 25 MG TABLET (FP) PO SCH (10:50)
[2021-11-06] MEDS: LACTATED RINGERS SOLUTION 1,000 ML/1,000 ML INFUS.BAG IV SCH (10:51)
[2021-11-06] MEDS: SENNOSIDES/DOCUSATE COMBO (SENNA PLUS) TABLET (UD) PO SCH ×2 (10:51→21:43)
[2021-11-06] MEDS: MULTIVITAMINS (DAILY MVI) TABLET (FP) PO SCH (10:51)
[2021-11-06] MEDS: FUROSEMIDE 40 MG TABLET (FP) PO SCH (10:52)
[2021-11-06] MEDS: oxyCODONE HCL 5 MG TABLET PO PRN (17:20)
[2021-11-06 19:06] LABS: HEMATOCRIT 29.3 % (32.4-45.2); HEMOGLOBIN 9.9 GM/dL (10.7-15.3); MCH 27.8 pg (25.7-33.7); MCHC 33.8 g/dl (32.0-36.0); MEAN CELL VOLUME 82.2 fl (80-96); MEAN PLT VOLUME 7.2 fl (7.5-11.1); PLATELET COUNT 251 10^3/uL (134-434); RBC 3.56 M/mm3 (3.60-5.2); RDW 16.3 % (11.6-15.6); WHITE BLOOD COUNT 8.4 K/mm3 (4.0-10.0)
[2021-11-06] MEDS: MELATONIN 1 MG TABLET PO SCH (21:42)
[2021-11-06] MEDS: ATORVASTATIN CA 10 MG TABLET (FP) PO SCH (21:42)
[2021-11-06] MEDS: CHLORHEXIDINE GLUCONATE 4% CLEANSER FOR DECOLONIZATION TP SCH (21:42)
[2021-11-06] MEDS: DOCUSATE SODIUM 100 MG CAPSULE (FP) PO SCH (21:43)
[2021-11-07] MEDS: oxyCODONE HCL 5 MG TABLET PO PRN ×3 (06:35→21:11)
[2021-11-07] MEDS ORDERED: PIPERACILLIN/TAZOBACTAM 3.375 GM VIAL IVPB ONE (06:36)
[2021-11-07] MEDS ORDERED: DEXTROSE 5%-WATER - 50 ML IVPB ONE (06:36)
[2021-11-07] MEDS: GABAPENTIN 300 MG CAPSULE PO SCH ×3 (06:38→21:12)
[2021-11-07] MEDS: PIPERACILLIN/TAZOB 3.375 GM 3.375 GM in DEXTROSE 5%-WATER - 50 ML IVPB SCH (06:38)
[2021-11-07] MEDS: VASOPRESSIN 40 UNITS/100 ML BAG IV SCH (06:38)
[2021-11-07] MEDS: FAMOTIDINE 20 MG TABLET PO SCH (09:12)
[2021-11-07] MEDS: SERTRALINE HCL 25 MG TABLET (FP) PO SCH (09:12)
[2021-11-07] MEDS: LACTOBACILLUS ACIDOPHILUS 1 TABLET PO SCH (09:12)
[2021-11-07] MEDS: ASPIRIN COATED 81 MG TABLET.EC PO SCH ×2 (09:12→21:12)
[2021-11-07] MEDS: FUROSEMIDE 40 MG TABLET (FP) PO SCH (09:13)
[2021-11-07] MEDS: MUPIROCIN 2% TOPICAL OINTMENT FOR DECOLONIZATION NS SCH ×2 (09:13→21:12)
[2021-11-07] MEDS: MULTIVITAMINS (DAILY MVI) TABLET (FP) PO SCH (09:13)
[2021-11-07] MEDS: SENNOSIDES/DOCUSATE COMBO (SENNA PLUS) TABLET (UD) PO SCH ×2 (09:26→21:13)
[2021-11-07 10:29] LABS: HEMATOCRIT 27.8 % (32.4-45.2); HEMOGLOBIN 9.3 GM/dL (10.7-15.3); MCH 27.7 pg (25.7-33.7); MCHC 33.4 g/dl (32.0-36.0); MEAN CELL VOLUME 82.9 fl (80-96); MEAN PLT VOLUME 7.5 fl (7.5-11.1); PLATELET COUNT 227 10^3/uL (134-434); RBC 3.36 M/mm3 (3.60-5.2); RDW 16.4 % (11.6-15.6); WHITE BLOOD COUNT 6.5 K/mm3 (4.0-10.0)
[2021-11-07] MEDS: ACETAMINOPHEN 500 MG TABLET (FP) PO PRN (12:11)
[2021-11-07] MEDS ORDERED: VANCOMYCIN/WATER 1250 MG 1,250 MG/250 ML BAG IVPB SCH (14:00)
[2021-11-07] MEDS: LACTATED RINGERS SOLUTION 1,000 ML/1,000 ML INFUS.BAG IV SCH (18:31)
[2021-11-07] MEDS: ATORVASTATIN CA 10 MG TABLET (FP) PO SCH (21:12)
[2021-11-07] MEDS: CHLORHEXIDINE GLUCONATE 4% CLEANSER FOR DECOLONIZATION TP SCH (21:12)
[2021-11-07] MEDS: DOCUSATE SODIUM 100 MG CAPSULE (FP) PO SCH (21:12)
[2021-11-07] MEDS: MELATONIN 1 MG TABLET PO SCH (21:12)
[2021-11-07] MEDS ORDERED: SENNOSIDES/DOCUSATE COMBO (SENNA PLUS) TABLET (UD) PO PRN (23:19)
[2021-11-07] MEDS ORDERED: DOCUSATE SODIUM 100 MG CAPSULE (FP) PO PRN (23:19)
[2021-11-08 07:14] LABS: HEMATOCRIT 26.6 % (32.4-45.2); HEMOGLOBIN 8.9 GM/dL (10.7-15.3); MCH 27.8 pg (25.7-33.7); MCHC 33.4 g/dl (32.0-36.0); MEAN CELL VOLUME 83.1 fl (80-96); MEAN PLT VOLUME 7.1 fl (7.5-11.1); PLATELET COUNT 219 10^3/uL (134-434); WHITE BLOOD COUNT 5.6 K/mm3 (4.0-10.0)
[2021-11-08 07:28] LABS: BLOOD UREA NITROGEN 13.6 mg/dL (7-18); CALCIUM 9.8 mg/dL (8.5-10.1); MAGNESIUM 1.7 mg/dL (1.8-2.4)
[2021-11-08 07:31] LABS: CREATININE 0.6 mg/dL (0.55-1.3); PHOSPHOROUS 2.3 mg/dL (2.5-4.9)
[2021-11-08] MEDS: LACTATED RINGERS SOLUTION 1,000 ML/1,000 ML INFUS.BAG IV SCH (10:52)
[2021-11-08] MEDS: ASPIRIN COATED 81 MG TABLET.EC PO SCH ×2 (10:53→21:34)
[2021-11-08] MEDS: LACTOBACILLUS ACIDOPHILUS 1 TABLET PO SCH (10:53)
[2021-11-08] MEDS: FAMOTIDINE 20 MG TABLET PO SCH (10:53)
[2021-11-08] MEDS: SERTRALINE HCL 25 MG TABLET (FP) PO SCH (10:53)
[2021-11-08] MEDS: MULTIVITAMINS (DAILY MVI) TABLET (FP) PO SCH (10:53)
[2021-11-08] MEDS: FUROSEMIDE 40 MG TABLET (FP) PO SCH (10:53)
[2021-11-08] MEDS: VANCOMYCIN/WATER FOR INJ (PEG) 1,000 MG/200 ML BAG IVPB SCH (10:53)
[2021-11-08] MEDS: MUPIROCIN 2% TOPICAL OINTMENT FOR DECOLONIZATION NS SCH ×2 (10:54→21:36)
[2021-11-08 12:32] VITALS: BMI 33.0
[2021-11-08] MEDS: GABAPENTIN 300 MG CAPSULE PO SCH ×2 (14:41→21:35)
[2021-11-08] MEDS: ACETAMINOPHEN 500 MG TABLET (FP) PO PRN (21:33)
[2021-11-08] MEDS: ATORVASTATIN CA 10 MG TABLET (FP) PO SCH (21:34)
[2021-11-08] MEDS: MELATONIN 1 MG TABLET PO SCH (21:34)
[2021-11-08] MEDS: CHLORHEXIDINE GLUCONATE 4% CLEANSER FOR DECOLONIZATION TP SCH (21:36)
[2021-11-09] MEDS: GABAPENTIN 300 MG CAPSULE PO SCH ×4 (05:14→21:07)
[2021-11-09] MEDS: VANCOMYCIN/WATER FOR INJ (PEG) 1,000 MG/200 ML BAG IVPB SCH (09:51)
[2021-11-09] MEDS: ASPIRIN COATED 81 MG TABLET.EC PO SCH ×2 (09:51→21:08)
[2021-11-09] MEDS: MULTIVITAMINS (DAILY MVI) TABLET (FP) PO SCH (09:51)
[2021-11-09] MEDS: SERTRALINE HCL 25 MG TABLET (FP) PO SCH (09:51)
[2021-11-09] MEDS: LACTOBACILLUS ACIDOPHILUS 1 TABLET PO SCH (09:51)
[2021-11-09] MEDS: FUROSEMIDE 40 MG TABLET (FP) PO SCH (09:51)
[2021-11-09] MEDS: MUPIROCIN 2% TOPICAL OINTMENT FOR DECOLONIZATION NS SCH ×2 (09:51→21:07)
[2021-11-09] MEDS: FAMOTIDINE 20 MG TABLET PO SCH (09:51)
[2021-11-09 16:49] LABS: BASO % 0.7 % (0-2.0); EOS % 3.3 % (0-4.5); HEMATOCRIT 27.8 % (32.4-45.2); HEMOGLOBIN 9.4 GM/dL (10.7-15.3); LYMPH % 17.8 % (8-40); MCH 28.5 pg (25.7-33.7); MCHC 33.9 g/dl (32.0-36.0); MEAN CELL VOLUME 83.9 fl (80-96); MEAN PLT VOLUME 7.2 fl (7.5-11.1); NEUT % 69.2 % (42.8-82.8); PLATELET COUNT 266 10^3/uL (134-434); RBC 3.31 M/mm3 (3.60-5.2); RDW 16.3 % (11.6-15.6); WHITE BLOOD COUNT 7.4 K/mm3 (4.0-10.0)
[2021-11-09 17:41] LABS: ALBUMIN 1.9 g/dl (3.4-5.0); BILIRUBIN,TOTAL 0.3 mg/dL (0.2-1); BLOOD UREA NITROGEN 16.1 mg/dL (7-18); CALCIUM 9.8 mg/dL (8.5-10.1); CREATININE 0.6 mg/dL (0.55-1.3); TOT PROT 5.2 g/dl (6.4-8.2)
[2021-11-09] MEDS: ATORVASTATIN CA 10 MG TABLET (FP) PO SCH (21:06)
[2021-11-09] MEDS: LACTATED RINGERS SOLUTION 1,000 ML/1,000 ML INFUS.BAG IV SCH (21:07)
[2021-11-09] MEDS: CHLORHEXIDINE GLUCONATE 4% CLEANSER FOR DECOLONIZATION TP SCH (21:08)
[2021-11-09] MEDS: MELATONIN 1 MG TABLET PO SCH (21:08)
[2021-11-10] MEDS: GABAPENTIN 300 MG CAPSULE PO SCH ×3 (05:42→22:03)
[2021-11-10] MEDS ORDERED: DOCUSATE SODIUM 100 MG CAPSULE (FP) PO PRN (09:15)
[2021-11-10] MEDS ORDERED: ONDANSETRON 4 MG/2 ML VIAL IVPUSH PRN (09:15)
[2021-11-10] MEDS ORDERED: MAG HYDROX/AL HYDROX/SIMETH 30 ML UNIT-DOSE CUP PO PRN (09:15)
[2021-11-10] MEDS ORDERED: MAGNESIUM HYDROX 2400MG/30ML ORAL SUSPENSION 30 ML CUP PO PRN (09:15)
[2021-11-10] MEDS: SERTRALINE HCL 25 MG TABLET (FP) PO SCH (10:35)
[2021-11-10] MEDS: FAMOTIDINE 20 MG TABLET PO SCH (10:35)
[2021-11-10] MEDS: LACTOBACILLUS ACIDOPHILUS 1 TABLET PO SCH (10:35)
[2021-11-10] MEDS: ASPIRIN COATED 81 MG TABLET.EC PO SCH ×2 (10:35→22:03)
[2021-11-10] MEDS: MULTIVITAMINS (DAILY MVI) TABLET (FP) PO SCH (10:35)
[2021-11-10] MEDS: VANCOMYCIN/WATER FOR INJ (PEG) 1,000 MG/200 ML BAG IVPB SCH (10:35)
[2021-11-10] MEDS: FUROSEMIDE 40 MG TABLET (FP) PO SCH (10:36)
[2021-11-10] MEDS: LACTATED RINGERS SOLUTION 1,000 ML/1,000 ML INFUS.BAG IV SCH ×2 (10:42→17:43)
[2021-11-10] MEDS: oxyCODONE HCL 5 MG TABLET PO PRN ×2 (13:20→22:03)
[2021-11-10] MEDS ORDERED: CHLORHEXIDINE GLUCONATE 4% CLEANSER FOR DECOLONIZATION TP SCH (22:00)
[2021-11-10] MEDS: MELATONIN 1 MG TABLET PO SCH (22:03)
[2021-11-10] MEDS: ATORVASTATIN CA 10 MG TABLET (FP) PO SCH (22:03)
[2021-11-11] MEDS: GABAPENTIN 300 MG CAPSULE PO SCH ×3 (06:30→22:00)
[2021-11-11] MEDS: ASPIRIN COATED 81 MG TABLET.EC PO SCH ×2 (09:43→21:59)
[2021-11-11] MEDS: MULTIVITAMINS (DAILY MVI) TABLET (FP) PO SCH (09:43)
[2021-11-11] MEDS: LACTOBACILLUS ACIDOPHILUS 1 TABLET PO SCH (09:43)
[2021-11-11] MEDS: VANCOMYCIN/WATER FOR INJ (PEG) 1,000 MG/200 ML BAG IVPB SCH (09:43)
[2021-11-11] MEDS: FUROSEMIDE 40 MG TABLET (FP) PO SCH (09:43)
[2021-11-11] MEDS: SERTRALINE HCL 25 MG TABLET (FP) PO SCH (09:44)
[2021-11-11] MEDS: FAMOTIDINE 20 MG TABLET PO SCH (09:44)
[2021-11-11] MEDS: LACTATED RINGERS SOLUTION 1,000 ML/1,000 ML INFUS.BAG IV SCH (09:44)
[2021-11-11] MEDS: MELATONIN 1 MG TABLET PO SCH (21:55)
[2021-11-11] MEDS: oxyCODONE HCL 5 MG TABLET PO PRN (21:56)
[2021-11-11] MEDS: ACETAMINOPHEN 500 MG TABLET (FP) PO PRN (21:58)
[2021-11-11] MEDS: ATORVASTATIN CA 10 MG TABLET (FP) PO SCH (22:00)
[2021-11-12] MEDS: GABAPENTIN 300 MG CAPSULE PO SCH ×3 (06:18→21:27)
[2021-11-12] MEDS: AMINO ACIDS/PROTEIN HYDROLYS 30 ML LIQUID.PKT PO SCH (08:42)
[2021-11-12] MEDS: FUROSEMIDE 40 MG TABLET (FP) PO SCH (10:52)
[2021-11-12] MEDS: FAMOTIDINE 20 MG TABLET PO SCH (10:53)
[2021-11-12] MEDS: VANCOMYCIN/WATER FOR INJ (PEG) 1,000 MG/200 ML BAG IVPB SCH (10:53)
[2021-11-12] MEDS: LACTOBACILLUS ACIDOPHILUS 1 TABLET PO SCH (10:53)
[2021-11-12] MEDS: ASPIRIN COATED 81 MG TABLET.EC PO SCH ×2 (10:53→21:27)
[2021-11-12] MEDS: SERTRALINE HCL 25 MG TABLET (FP) PO SCH (10:53)
[2021-11-12] MEDS: MULTIVITAMINS (DAILY MVI) TABLET (FP) PO SCH (10:53)
[2021-11-12] MEDS: LACTATED RINGERS SOLUTION 1,000 ML/1,000 ML INFUS.BAG IV SCH (11:01)
[2021-11-12] MEDS: MELATONIN 1 MG TABLET PO SCH (21:27)
[2021-11-12] MEDS: ATORVASTATIN CA 10 MG TABLET (FP) PO SCH (21:27)
[2021-11-13] MEDS: GABAPENTIN 300 MG CAPSULE PO SCH ×3 (05:35→20:59)
[2021-11-13] MEDS: AMINO ACIDS/PROTEIN HYDROLYS 30 ML LIQUID.PKT PO SCH (10:18)
[2021-11-13] MEDS: VANCOMYCIN/WATER FOR INJ (PEG) 1,000 MG/200 ML BAG IVPB SCH (10:19)
[2021-11-13] MEDS: MULTIVITAMINS (DAILY MVI) TABLET (FP) PO SCH (10:21)
[2021-11-13] MEDS: SENNOSIDES/DOCUSATE COMBO (SENNA PLUS) TABLET (UD) PO PRN (10:21)
[2021-11-13] MEDS: FUROSEMIDE 40 MG TABLET (FP) PO SCH (10:21)
[2021-11-13] MEDS: SERTRALINE HCL 25 MG TABLET (FP) PO SCH (10:21)
[2021-11-13] MEDS: ACETAMINOPHEN 500 MG TABLET (FP) PO PRN ×2 (10:22→20:59)
[2021-11-13] MEDS: LACTOBACILLUS ACIDOPHILUS 1 TABLET PO SCH (10:22)
[2021-11-13] MEDS: FAMOTIDINE 20 MG TABLET PO SCH (10:22)
[2021-11-13] MEDS: ASPIRIN COATED 81 MG TABLET.EC PO SCH ×2 (10:22→21:00)
[2021-11-13] MEDS: ATORVASTATIN CA 10 MG TABLET (FP) PO SCH (20:59)
[2021-11-13] MEDS: MELATONIN 1 MG TABLET PO SCH (21:00)
[2021-11-14] MEDS: GABAPENTIN 300 MG CAPSULE PO SCH ×3 (05:27→21:24)
[2021-11-14] MEDS: AMINO ACIDS/PROTEIN HYDROLYS 30 ML LIQUID.PKT PO SCH (08:38)
[2021-11-14] MEDS: ACETAMINOPHEN 500 MG TABLET (FP) PO PRN ×2 (08:39→21:24)
[2021-11-14] MEDS: SENNOSIDES/DOCUSATE COMBO (SENNA PLUS) TABLET (UD) PO PRN (08:40)
[2021-11-14] MEDS: MULTIVITAMINS (DAILY MVI) TABLET (FP) PO SCH (09:52)
[2021-11-14] MEDS: FAMOTIDINE 20 MG TABLET PO SCH (09:52)
[2021-11-14] MEDS: SERTRALINE HCL 25 MG TABLET (FP) PO SCH (09:52)
[2021-11-14] MEDS: VANCOMYCIN/WATER FOR INJ (PEG) 1,000 MG/200 ML BAG IVPB SCH (09:52)
[2021-11-14] MEDS: FUROSEMIDE 40 MG TABLET (FP) PO SCH (09:52)
[2021-11-14] MEDS: ASPIRIN COATED 81 MG TABLET.EC PO SCH ×2 (09:53→21:20)
[2021-11-14] MEDS: LACTOBACILLUS ACIDOPHILUS 1 TABLET PO SCH (09:53)
[2021-11-14] MEDS: ATORVASTATIN CA 10 MG TABLET (FP) PO SCH (21:20)
[2021-11-14] MEDS: MELATONIN 1 MG TABLET PO SCH (21:24)
[2021-11-15] MEDS: GABAPENTIN 300 MG CAPSULE PO SCH ×3 (05:35→21:20)
[2021-11-15 08:12] LABS: BASO % 1.1 % (0-2.0); EOS % 4.4 % (0-4.5); HEMATOCRIT 26.3 % (32.4-45.2); HEMOGLOBIN 8.7 GM/dL (10.7-15.3); LYMPH % 17.8 % (8-40); MCH 28.5 pg (25.7-33.7); MCHC 33.2 g/dl (32.0-36.0); MEAN CELL VOLUME 85.9 fl (80-96); MEAN PLT VOLUME 7.3 fl (7.5-11.1); MONO % 8.7 % (3.8-10.2); PLATELET COUNT 282 10^3/uL (134-434); RBC 3.06 M/mm3 (3.60-5.2); RDW 18.8 % (11.6-15.6); WHITE BLOOD COUNT 5.2 K/mm3 (4.0-10.0)
[2021-11-15 08:52] LABS: CALCIUM 9.6 mg/dL (8.5-10.1)
[2021-11-15 08:53] LABS: ALBUMIN 2.1 g/dl (3.4-5.0); BLOOD UREA NITROGEN 22.1 mg/dL (7-18)
[2021-11-15 08:56] LABS: CREATININE 0.7 mg/dL (0.55-1.3)
[2021-11-15 08:57] LABS: TOT PROT 5.5 g/dl (6.4-8.2)
[2021-11-15 08:59] LABS: BILIRUBIN,TOTAL 0.4 mg/dL (0.2-1)
[2021-11-15] MEDS: AMINO ACIDS/PROTEIN HYDROLYS 30 ML LIQUID.PKT PO SCH (09:07)
[2021-11-15] MEDS: ASPIRIN COATED 81 MG TABLET.EC PO SCH ×2 (09:08→21:15)
[2021-11-15] MEDS: MULTIVITAMINS (DAILY MVI) TABLET (FP) PO SCH (09:08)
[2021-11-15] MEDS: VANCOMYCIN/WATER FOR INJ (PEG) 1,000 MG/200 ML BAG IVPB SCH (09:08)
[2021-11-15] MEDS: FAMOTIDINE 20 MG TABLET PO SCH (09:08)
[2021-11-15] MEDS: LACTOBACILLUS ACIDOPHILUS 1 TABLET PO SCH (09:08)
[2021-11-15] MEDS: SERTRALINE HCL 25 MG TABLET (FP) PO SCH (09:08)
[2021-11-15] MEDS: FUROSEMIDE 40 MG TABLET (FP) PO SCH (09:08)
[2021-11-15] MEDS ORDERED: FERRIC CARBOXYMALTOSE 750 MG in SODIUM CHLORIDE 250 ML IVPB ONE (10:00)
[2021-11-15] MEDS: ACETAMINOPHEN 500 MG TABLET (FP) PO PRN ×2 (15:28→21:20)
[2021-11-15] MEDS: ATORVASTATIN CA 10 MG TABLET (FP) PO SCH (21:15)
[2021-11-15] MEDS: MELATONIN 1 MG TABLET PO SCH (21:16)
[2021-11-16] MEDS: GABAPENTIN 300 MG CAPSULE PO SCH ×3 (05:34→22:16)
[2021-11-16] MEDS: AMINO ACIDS/PROTEIN HYDROLYS 30 ML LIQUID.PKT PO SCH (09:23)
[2021-11-16] MEDS: FAMOTIDINE 20 MG TABLET PO SCH (10:28)
[2021-11-16] MEDS: ASPIRIN COATED 81 MG TABLET.EC PO SCH ×2 (10:28→22:16)
[2021-11-16] MEDS: VANCOMYCIN/WATER FOR INJ (PEG) 1,000 MG/200 ML BAG IVPB SCH (10:28)
[2021-11-16] MEDS: MULTIVITAMINS (DAILY MVI) TABLET (FP) PO SCH (10:28)
[2021-11-16] MEDS: LACTOBACILLUS ACIDOPHILUS 1 TABLET PO SCH (10:28)
[2021-11-16] MEDS: FUROSEMIDE 40 MG TABLET (FP) PO SCH (10:28)
[2021-11-16] MEDS: SERTRALINE HCL 25 MG TABLET (FP) PO SCH (10:28)
[2021-11-16] MEDS: ACETAMINOPHEN 500 MG TABLET (FP) PO PRN (22:15)
[2021-11-16] MEDS: ATORVASTATIN CA 10 MG TABLET (FP) PO SCH (22:16)
[2021-11-16] MEDS: MELATONIN 1 MG TABLET PO SCH (22:16)
[2021-11-17] MEDS: GABAPENTIN 300 MG CAPSULE PO SCH ×3 (05:17→21:11)
[2021-11-17] MEDS: AMINO ACIDS/PROTEIN HYDROLYS 30 ML LIQUID.PKT PO SCH (08:50)
[2021-11-17] MEDS: FUROSEMIDE 40 MG TABLET (FP) PO SCH (09:24)
[2021-11-17] MEDS: ASPIRIN COATED 81 MG TABLET.EC PO SCH ×2 (09:24→21:11)
[2021-11-17] MEDS: SERTRALINE HCL 25 MG TABLET (FP) PO SCH (09:24)
[2021-11-17] MEDS: FAMOTIDINE 20 MG TABLET PO SCH (09:24)
[2021-11-17] MEDS: MULTIVITAMINS (DAILY MVI) TABLET (FP) PO SCH (09:24)
[2021-11-17] MEDS: LACTOBACILLUS ACIDOPHILUS 1 TABLET PO SCH (09:24)
[2021-11-17] MEDS: ACETAMINOPHEN 500 MG TABLET (FP) PO PRN (13:53)
[2021-11-17] MEDS: ATORVASTATIN CA 10 MG TABLET (FP) PO SCH (21:11)
[2021-11-17] MEDS: MELATONIN 1 MG TABLET PO SCH (21:11)
[2021-11-18] MEDS: GABAPENTIN 300 MG CAPSULE PO SCH ×3 (05:59→22:09)
[2021-11-18] MEDS: AMINO ACIDS/PROTEIN HYDROLYS 30 ML LIQUID.PKT PO SCH (07:43)
[2021-11-18] MEDS: SERTRALINE HCL 25 MG TABLET (FP) PO SCH (10:48)
[2021-11-18] MEDS: ASPIRIN COATED 81 MG TABLET.EC PO SCH ×2 (10:48→22:09)
[2021-11-18] MEDS: LACTOBACILLUS ACIDOPHILUS 1 TABLET PO SCH (10:48)
[2021-11-18] MEDS: MULTIVITAMINS (DAILY MVI) TABLET (FP) PO SCH (10:48)
[2021-11-18] MEDS: FAMOTIDINE 20 MG TABLET PO SCH (10:49)
[2021-11-18] MEDS: FUROSEMIDE 40 MG TABLET (FP) PO SCH (10:49)
[2021-11-18] MEDS: VANCOMYCIN/WATER FOR INJ (PEG) 1,000 MG/200 ML BAG IVPB SCH (12:07)
[2021-11-18] MEDS: ACETAMINOPHEN 500 MG TABLET (FP) PO PRN (22:08)
[2021-11-18] MEDS: MELATONIN 1 MG TABLET PO SCH (22:09)
[2021-11-18] MEDS: ATORVASTATIN CA 10 MG TABLET (FP) PO SCH (22:09)
[2021-11-19] MEDS: GABAPENTIN 300 MG CAPSULE PO SCH ×3 (05:26→21:42)
[2021-11-19] MEDS: AMINO ACIDS/PROTEIN HYDROLYS 30 ML LIQUID.PKT PO SCH (10:08)
[2021-11-19] MEDS: FAMOTIDINE 20 MG TABLET PO SCH (10:52)
[2021-11-19] MEDS: ASPIRIN COATED 81 MG TABLET.EC PO SCH ×2 (10:52→21:42)
[2021-11-19] MEDS: FUROSEMIDE 40 MG TABLET (FP) PO SCH (10:52)
[2021-11-19] MEDS: SERTRALINE HCL 25 MG TABLET (FP) PO SCH (10:52)
[2021-11-19] MEDS: LACTOBACILLUS ACIDOPHILUS 1 TABLET PO SCH (10:52)
[2021-11-19] MEDS: VANCOMYCIN/WATER FOR INJ (PEG) 1,000 MG/200 ML BAG IVPB SCH (10:52)
[2021-11-19] MEDS: MULTIVITAMINS (DAILY MVI) TABLET (FP) PO SCH (10:52)
[2021-11-19] MEDS: ACETAMINOPHEN 500 MG TABLET (FP) PO PRN (14:02)
[2021-11-19] MEDS: MELATONIN 1 MG TABLET PO SCH (21:42)
[2021-11-19] MEDS: ATORVASTATIN CA 10 MG TABLET (FP) PO SCH (21:42)
[2021-11-20] MEDS: GABAPENTIN 300 MG CAPSULE PO SCH ×3 (06:16→21:48)
[2021-11-20] MEDS: FUROSEMIDE 40 MG TABLET (FP) PO SCH (10:38)
[2021-11-20] MEDS: ASPIRIN COATED 81 MG TABLET.EC PO SCH ×2 (10:39→21:48)
[2021-11-20] MEDS: LACTOBACILLUS ACIDOPHILUS 1 TABLET PO SCH (10:39)
[2021-11-20] MEDS: FAMOTIDINE 20 MG TABLET PO SCH (10:39)
[2021-11-20] MEDS: MULTIVITAMINS (DAILY MVI) TABLET (FP) PO SCH (10:39)
[2021-11-20] MEDS: AMINO ACIDS/PROTEIN HYDROLYS 30 ML LIQUID.PKT PO SCH (10:39)
[2021-11-20] MEDS: SERTRALINE HCL 25 MG TABLET (FP) PO SCH (10:39)
[2021-11-20] MEDS: ACETAMINOPHEN 500 MG TABLET (FP) PO PRN (11:03)
[2021-11-20] MEDS: VANCOMYCIN/WATER FOR INJ (PEG) 1,000 MG/200 ML BAG IVPB SCH (12:54)
[2021-11-20] MEDS: MELATONIN 1 MG TABLET PO SCH (21:48)
[2021-11-20] MEDS: ATORVASTATIN CA 10 MG TABLET (FP) PO SCH (21:48)
[2021-11-21] MEDS: GABAPENTIN 300 MG CAPSULE PO SCH ×3 (07:17→23:20)
[2021-11-21] MEDS: ASPIRIN COATED 81 MG TABLET.EC PO SCH ×2 (10:13→23:20)
[2021-11-21] MEDS: AMINO ACIDS/PROTEIN HYDROLYS 30 ML LIQUID.PKT PO SCH (10:13)
[2021-11-21] MEDS: SERTRALINE HCL 25 MG TABLET (FP) PO SCH (10:13)
[2021-11-21] MEDS: FAMOTIDINE 20 MG TABLET PO SCH (10:13)
[2021-11-21] MEDS: LACTOBACILLUS ACIDOPHILUS 1 TABLET PO SCH (10:13)
[2021-11-21] MEDS: FUROSEMIDE 40 MG TABLET (FP) PO SCH (10:13)
[2021-11-21] MEDS: MULTIVITAMINS (DAILY MVI) TABLET (FP) PO SCH (10:13)
[2021-11-21] MEDS: VANCOMYCIN/WATER FOR INJ (PEG) 1,000 MG/200 ML BAG IVPB SCH (11:33)
[2021-11-21] MEDS: ACETAMINOPHEN 500 MG TABLET (FP) PO PRN (18:43)
[2021-11-21] MEDS: MELATONIN 1 MG TABLET PO SCH (23:20)
[2021-11-21] MEDS: ATORVASTATIN CA 10 MG TABLET (FP) PO SCH (23:20)
[2021-11-22] MEDS: GABAPENTIN 300 MG CAPSULE PO SCH ×3 (05:45→22:03)
[2021-11-22 08:22] LABS: BASO % 0.7 % (0-2.0); EOS % 4.9 % (0-4.5); HEMATOCRIT 31.8 % (32.4-45.2); HEMOGLOBIN 10.7 GM/dL (10.7-15.3); LYMPH % 21.5 % (8-40); MCH 29.9 pg (25.7-33.7); MCHC 33.7 g/dl (32.0-36.0); MEAN CELL VOLUME 88.9 fl (80-96); MEAN PLT VOLUME 6.9 fl (7.5-11.1); MONO % 8.5 % (3.8-10.2); NEUT % 64.4 % (42.8-82.8); PLATELET COUNT 322 10^3/uL (134-434); RBC 3.58 M/mm3 (3.60-5.2); RDW 21.6 % (11.6-15.6); WHITE BLOOD COUNT 5.9 K/mm3 (4.0-10.0)
[2021-11-22 08:29] LABS: CALCIUM 9.8 mg/dL (8.5-10.1)
[2021-11-22 08:30] LABS: BLOOD UREA NITROGEN 28.3 mg/dL (7-18)
[2021-11-22 08:33] LABS: CREATININE 0.8 mg/dL (0.55-1.3)
[2021-11-22 08:34] LABS: BILIRUBIN,TOTAL 0.5 mg/dL (0.2-1); TOT PROT 6.2 g/dl (6.4-8.2)
[2021-11-22 08:40] LABS: ALBUMIN 2.8 g/dl (3.4-5.0)
[2021-11-22] MEDS: LACTOBACILLUS ACIDOPHILUS 1 TABLET PO SCH (09:38)
[2021-11-22] MEDS: SERTRALINE HCL 25 MG TABLET (FP) PO SCH (09:38)
[2021-11-22] MEDS: ASPIRIN COATED 81 MG TABLET.EC PO SCH ×2 (09:38→22:03)
[2021-11-22] MEDS: MULTIVITAMINS (DAILY MVI) TABLET (FP) PO SCH (09:38)
[2021-11-22] MEDS: FUROSEMIDE 40 MG TABLET (FP) PO SCH (09:38)
[2021-11-22] MEDS: FAMOTIDINE 20 MG TABLET PO SCH (09:39)
[2021-11-22] MEDS: AMINO ACIDS/PROTEIN HYDROLYS 30 ML LIQUID.PKT PO SCH (09:39)
[2021-11-22 10:13] LABS: ANISOCYTOSIS 1+; MACROCYTOSIS 1+
[2021-11-22] MEDS: VANCOMYCIN/WATER FOR INJ (PEG) 1,000 MG/200 ML BAG IVPB SCH (11:14)
[2021-11-22] MEDS: MELATONIN 1 MG TABLET PO SCH (22:03)
[2021-11-22] MEDS: ATORVASTATIN CA 10 MG TABLET (FP) PO SCH (22:03)
[2021-11-23] MEDS: GABAPENTIN 300 MG CAPSULE PO SCH ×3 (06:58→22:53)
[2021-11-23] MEDS: SERTRALINE HCL 25 MG TABLET (FP) PO SCH (09:33)
[2021-11-23] MEDS: FAMOTIDINE 20 MG TABLET PO SCH (09:33)
[2021-11-23] MEDS: FUROSEMIDE 40 MG TABLET (FP) PO SCH (09:33)
[2021-11-23] MEDS: ASPIRIN COATED 81 MG TABLET.EC PO SCH ×2 (09:33→22:53)
[2021-11-23] MEDS: AMINO ACIDS/PROTEIN HYDROLYS 30 ML LIQUID.PKT PO SCH (09:33)
[2021-11-23] MEDS: MULTIVITAMINS (DAILY MVI) TABLET (FP) PO SCH (09:33)
[2021-11-23] MEDS: LACTOBACILLUS ACIDOPHILUS 1 TABLET PO SCH (09:33)
[2021-11-23 13:58] LABS: ALBUMIN 2.9 g/dl (3.4-5.0); CALCIUM 9.9 mg/dL (8.5-10.1)
[2021-11-23 14:01] LABS: CREATININE 0.6 mg/dL (0.55-1.3)
[2021-11-23 14:03] LABS: BILIRUBIN,TOTAL 0.5 mg/dL (0.2-1); TOT PROT 6.7 g/dl (6.4-8.2)
[2021-11-23] MEDS: VANCOMYCIN/WATER FOR INJ (PEG) 1,000 MG/200 ML BAG IVPB SCH (14:34)
[2021-11-23] MEDS: NYSTATIN POWDER 100,000 UNITS/GM - 15 GM TOPICAL POWDER TP SCH ×2 (14:36→22:53)
[2021-11-23] MEDS: ACETAMINOPHEN 500 MG TABLET (FP) PO PRN (14:40)
[2021-11-23 17:48] LABS: EPI CELLS >36 /uL (0-25.1); HYALINE CASTS 8 /uL (0-3.1); PH,URINE 5.5 (5.0-8.0); URINE APPEARANCE TURBID; URINE BACTERIA 897 /uL (0-1359); URINE BILIRUBIN NEGATIVE (NEGATIVE); URINE COLOR YELLOW; URINE GLUCOSE (UA) NEGATIVE (NEGATIVE); URINE KETONE NEGATIVE (NEGATIVE); URINE LEUK ESTERASE 3+ (NEGATIVE); URINE NITRITE NEGATIVE (NEGATIVE); URINE PROTEIN TRACE (NEGATIVE); URINE RBC 101 /uL (0-23.9); URINE UROBILINOGEN 0.2 mg/dL (0.2-1.0); URINE WBC 11401 /uL (0-25.8)
[2021-11-23] MEDS: ATORVASTATIN CA 10 MG TABLET (FP) PO SCH (22:53)
[2021-11-23] MEDS: MELATONIN 1 MG TABLET PO SCH (22:53)
[2021-11-24] MEDS: NYSTATIN POWDER 100,000 UNITS/GM - 15 GM TOPICAL POWDER TP SCH ×3 (06:04→23:02)
[2021-11-24] MEDS: GABAPENTIN 300 MG CAPSULE PO SCH ×3 (06:04→23:02)
[2021-11-24] MEDS: AMINO ACIDS/PROTEIN HYDROLYS 30 ML LIQUID.PKT PO SCH (08:10)
[2021-11-24 08:19] LABS: BASO % 0.8 % (0-2.0); EOS % 4.7 % (0-4.5); HEMATOCRIT 33.1 % (32.4-45.2); HEMOGLOBIN 10.9 GM/dL (10.7-15.3); LYMPH % 21.2 % (8-40); MCH 29.5 pg (25.7-33.7); MCHC 33.1 g/dl (32.0-36.0); MEAN CELL VOLUME 89.1 fl (80-96); MONO % 9.7 % (3.8-10.2); NEUT % 63.6 % (42.8-82.8); PLATELET COUNT 303 10^3/uL (134-434); RBC 3.71 M/mm3 (3.60-5.2); RDW 21.7 % (11.6-15.6); WHITE BLOOD COUNT 5.4 K/mm3 (4.0-10.0)
[2021-11-24 08:40] LABS: ALBUMIN 2.6 g/dl (3.4-5.0); BLOOD UREA NITROGEN 25.8 mg/dL (7-18); CALCIUM 9.4 mg/dL (8.5-10.1)
[2021-11-24 08:43] LABS: CREATININE 0.6 mg/dL (0.55-1.3)
[2021-11-24 08:45] LABS: BILIRUBIN,TOTAL 0.6 mg/dL (0.2-1); TOT PROT 6.2 g/dl (6.4-8.2)
[2021-11-24] MEDS: MULTIVITAMINS (DAILY MVI) TABLET (FP) PO SCH (10:34)
[2021-11-24] MEDS: FAMOTIDINE 20 MG TABLET PO SCH (10:34)
[2021-11-24] MEDS: FUROSEMIDE 40 MG TABLET (FP) PO SCH (10:34)
[2021-11-24] MEDS: ASPIRIN COATED 81 MG TABLET.EC PO SCH ×2 (10:34→23:01)
[2021-11-24] MEDS: SERTRALINE HCL 25 MG TABLET (FP) PO SCH (10:34)
[2021-11-24] MEDS: LACTOBACILLUS ACIDOPHILUS 1 TABLET PO SCH (10:34)
[2021-11-24] MEDS: VANCOMYCIN/WATER FOR INJ (PEG) 1,000 MG/200 ML BAG IVPB SCH ×2 (10:36→13:44)
[2021-11-24] MEDS: MELATONIN 1 MG TABLET PO SCH (23:01)
[2021-11-24] MEDS: ATORVASTATIN CA 10 MG TABLET (FP) PO SCH (23:02)
[2021-11-25] MEDS: GABAPENTIN 300 MG CAPSULE PO SCH ×3 (05:36→22:27)
[2021-11-25] MEDS: NYSTATIN POWDER 100,000 UNITS/GM - 15 GM TOPICAL POWDER TP SCH ×3 (05:36→22:27)
[2021-11-25] MEDS: AMINO ACIDS/PROTEIN HYDROLYS 30 ML LIQUID.PKT PO SCH (08:20)
[2021-11-25] MEDS: FUROSEMIDE 40 MG TABLET (FP) PO SCH (11:08)
[2021-11-25] MEDS: FAMOTIDINE 20 MG TABLET PO SCH (11:08)
[2021-11-25] MEDS: ASPIRIN COATED 81 MG TABLET.EC PO SCH ×2 (11:08→22:26)
[2021-11-25] MEDS: LACTOBACILLUS ACIDOPHILUS 1 TABLET PO SCH (11:08)
[2021-11-25] MEDS: MULTIVITAMINS (DAILY MVI) TABLET (FP) PO SCH (11:09)
[2021-11-25] MEDS: SERTRALINE HCL 25 MG TABLET (FP) PO SCH (11:09)
[2021-11-25] MEDS: VANCOMYCIN/WATER FOR INJ (PEG) 1,000 MG/200 ML BAG IVPB SCH ×2 (11:10)
[2021-11-25] MEDS: ATORVASTATIN CA 10 MG TABLET (FP) PO SCH (22:27)
[2021-11-25] MEDS: MELATONIN 1 MG TABLET PO SCH (22:28)
[2021-11-25] MEDS: ACETAMINOPHEN 500 MG TABLET (FP) PO PRN (22:29)
[2021-11-26] MEDS: NYSTATIN POWDER 100,000 UNITS/GM - 15 GM TOPICAL POWDER TP SCH ×3 (05:10→21:26)
[2021-11-26] MEDS: GABAPENTIN 300 MG CAPSULE PO SCH ×3 (05:10→21:15)
[2021-11-26] MEDS: AMINO ACIDS/PROTEIN HYDROLYS 30 ML LIQUID.PKT PO SCH (10:52)
[2021-11-26] MEDS: FUROSEMIDE 40 MG TABLET (FP) PO SCH (10:52)
[2021-11-26] MEDS: ASPIRIN COATED 81 MG TABLET.EC PO SCH ×2 (10:52→21:17)
[2021-11-26] MEDS: LACTOBACILLUS ACIDOPHILUS 1 TABLET PO SCH (10:52)
[2021-11-26] MEDS: SERTRALINE HCL 25 MG TABLET (FP) PO SCH (10:53)
[2021-11-26] MEDS: FAMOTIDINE 20 MG TABLET PO SCH (10:53)
[2021-11-26] MEDS: MULTIVITAMINS (DAILY MVI) TABLET (FP) PO SCH (10:53)
[2021-11-26] MEDS: VANCOMYCIN/WATER FOR INJ (PEG) 1,000 MG/200 ML BAG IVPB SCH (10:55)
[2021-11-26] MEDS: traMADol HCL 50 MG TABLET PO SCH ×2 (16:57→21:16)
[2021-11-26] MEDS: MELATONIN 1 MG TABLET PO SCH (21:15)
[2021-11-26] MEDS: ATORVASTATIN CA 10 MG TABLET (FP) PO SCH (21:17)
[2021-11-26] MEDS ORDERED: traMADol HCL 50 MG TABLET PO SCH (22:00)
[2021-11-26] MEDS: ACETAMINOPHEN 500 MG TABLET (FP) PO PRN (22:36)
[2021-11-27] MEDS: GABAPENTIN 300 MG CAPSULE PO SCH ×3 (06:49→22:24)
[2021-11-27] MEDS: NYSTATIN POWDER 100,000 UNITS/GM - 15 GM TOPICAL POWDER TP SCH ×3 (06:49→22:26)
[2021-11-27] MEDS: traMADol HCL 50 MG TABLET PO SCH ×2 (10:41→22:25)
[2021-11-27] MEDS: MULTIVITAMINS (DAILY MVI) TABLET (FP) PO SCH (10:41)
[2021-11-27] MEDS: SERTRALINE HCL 25 MG TABLET (FP) PO SCH (10:42)
[2021-11-27] MEDS: FUROSEMIDE 40 MG TABLET (FP) PO SCH (10:42)
[2021-11-27] MEDS: AMINO ACIDS/PROTEIN HYDROLYS 30 ML LIQUID.PKT PO SCH (10:42)
[2021-11-27] MEDS: FAMOTIDINE 20 MG TABLET PO SCH (10:42)
[2021-11-27] MEDS: ASPIRIN COATED 81 MG TABLET.EC PO SCH ×2 (10:42→22:24)
[2021-11-27] MEDS: VANCOMYCIN/WATER FOR INJ (PEG) 1,000 MG/200 ML BAG IVPB SCH (10:42)
[2021-11-27] MEDS: LACTOBACILLUS ACIDOPHILUS 1 TABLET PO SCH (10:42)
[2021-11-27] MEDS: MELATONIN 1 MG TABLET PO SCH (22:24)
[2021-11-27] MEDS: ATORVASTATIN CA 10 MG TABLET (FP) PO SCH (22:25)
[2021-11-28] MEDS: GABAPENTIN 300 MG CAPSULE PO SCH ×3 (05:55→21:21)
[2021-11-28] MEDS: NYSTATIN POWDER 100,000 UNITS/GM - 15 GM TOPICAL POWDER TP SCH ×3 (05:55→21:21)
[2021-11-28] MEDS: ACETAMINOPHEN 500 MG TABLET (FP) PO PRN ×2 (08:01→15:41)
[2021-11-28] MEDS: AMINO ACIDS/PROTEIN HYDROLYS 30 ML LIQUID.PKT PO SCH (08:03)
[2021-11-28] MEDS: ASPIRIN COATED 81 MG TABLET.EC PO SCH ×2 (10:35→21:19)
[2021-11-28] MEDS: MULTIVITAMINS (DAILY MVI) TABLET (FP) PO SCH (10:35)
[2021-11-28] MEDS: LACTOBACILLUS ACIDOPHILUS 1 TABLET PO SCH (10:35)
[2021-11-28] MEDS: traMADol HCL 50 MG TABLET PO SCH ×2 (10:35→21:19)
[2021-11-28] MEDS: SERTRALINE HCL 50 MG TABLET (FP) PO SCH (10:37)
[2021-11-28] MEDS: FAMOTIDINE 20 MG TABLET PO SCH (10:38)
[2021-11-28] MEDS: FUROSEMIDE 40 MG TABLET (FP) PO SCH (10:38)
[2021-11-28] MEDS: VANCOMYCIN/WATER FOR INJ (PEG) 1,000 MG/200 ML BAG IVPB SCH (17:31)
[2021-11-28] MEDS: MELATONIN 1 MG TABLET PO SCH (21:19)
[2021-11-28] MEDS: ATORVASTATIN CA 10 MG TABLET (FP) PO SCH (21:19)
[2021-11-29] MEDS: NYSTATIN POWDER 100,000 UNITS/GM - 15 GM TOPICAL POWDER TP SCH ×3 (06:14→21:03)
[2021-11-29] MEDS: GABAPENTIN 300 MG CAPSULE PO SCH ×3 (06:14→21:03)
[2021-11-29] MEDS: ACETAMINOPHEN 500 MG TABLET (FP) PO PRN (07:52)
[2021-11-29] MEDS: AMINO ACIDS/PROTEIN HYDROLYS 30 ML LIQUID.PKT PO SCH (07:53)
[2021-11-29] MEDS ORDERED: HYDROmorphone HCl 2 MG/ML VIAL IVPB PRN (09:35)
[2021-11-29 09:41] LABS: HEMATOCRIT 33.5 % (32.4-45.2); HEMOGLOBIN 11.2 GM/dL (10.7-15.3); MCH 30.1 pg (25.7-33.7); MCHC 33.5 g/dl (32.0-36.0); MEAN CELL VOLUME 89.9 fl (80-96); MEAN PLT VOLUME 7.2 fl (7.5-11.1); PLATELET COUNT 245 10^3/uL (134-434); RBC 3.73 M/mm3 (3.60-5.2); RDW 21.1 % (11.6-15.6); WHITE BLOOD COUNT 5.8 K/mm3 (4.0-10.0)
[2021-11-29] MEDS: ASPIRIN COATED 81 MG TABLET.EC PO SCH ×2 (10:05→21:03)
[2021-11-29] MEDS: LACTOBACILLUS ACIDOPHILUS 1 TABLET PO SCH (10:05)
[2021-11-29] MEDS: FUROSEMIDE 40 MG TABLET (FP) PO SCH (10:05)
[2021-11-29] MEDS: FAMOTIDINE 20 MG TABLET PO SCH (10:05)
[2021-11-29] MEDS: MULTIVITAMINS (DAILY MVI) TABLET (FP) PO SCH (10:06)
[2021-11-29] MEDS: traMADol HCL 50 MG TABLET PO SCH ×2 (10:06→21:03)
[2021-11-29] MEDS: SERTRALINE HCL 50 MG TABLET (FP) PO SCH (10:07)
[2021-11-29 10:13] LABS: ALBUMIN 2.8 g/dl (3.4-5.0); BLOOD UREA NITROGEN 28.2 mg/dL (7-18); CALCIUM 10.1 mg/dL (8.5-10.1); MAGNESIUM 2.1 mg/dL (1.8-2.4)
[2021-11-29 10:17] LABS: CREATININE 0.6 mg/dL (0.55-1.3)
[2021-11-29 10:18] LABS: BILIRUBIN,TOTAL 0.5 mg/dL (0.2-1); TOT PROT 6.6 g/dl (6.4-8.2)
[2021-11-29] MEDS: VANCOMYCIN/WATER FOR INJ (PEG) 1,000 MG/200 ML BAG IVPB SCH (15:49)
[2021-11-29] MEDS: ATORVASTATIN CA 10 MG TABLET (FP) PO SCH (21:03)
[2021-11-29] MEDS: MELATONIN 1 MG TABLET PO SCH (21:03)
[2021-11-30] MEDS: NYSTATIN POWDER 100,000 UNITS/GM - 15 GM TOPICAL POWDER TP SCH ×3 (05:20→21:24)
[2021-11-30] MEDS: GABAPENTIN 300 MG CAPSULE PO SCH ×3 (05:20→21:24)
[2021-11-30] MEDS: FUROSEMIDE 40 MG TABLET (FP) PO SCH (09:25)
[2021-11-30] MEDS: AMINO ACIDS/PROTEIN HYDROLYS 30 ML LIQUID.PKT PO SCH (09:25)
[2021-11-30] MEDS: traMADol HCL 50 MG TABLET PO SCH ×2 (09:25→21:24)
[2021-11-30] MEDS: SERTRALINE HCL 50 MG TABLET (FP) PO SCH (09:25)
[2021-11-30] MEDS: ASPIRIN COATED 81 MG TABLET.EC PO SCH ×2 (09:42→21:24)
[2021-11-30] MEDS: FAMOTIDINE 20 MG TABLET PO SCH (09:42)
[2021-11-30] MEDS: MULTIVITAMINS (DAILY MVI) TABLET (FP) PO SCH (09:42)
[2021-11-30] MEDS: LACTOBACILLUS ACIDOPHILUS 1 TABLET PO SCH (09:47)
[2021-11-30] MEDS: VANCOMYCIN/WATER FOR INJ (PEG) 1,000 MG/200 ML BAG IVPB SCH (15:40)
[2021-11-30] MEDS: MELATONIN 1 MG TABLET PO SCH (21:24)
[2021-11-30] MEDS: ATORVASTATIN CA 10 MG TABLET (FP) PO SCH (21:24)
[2021-11-30] MEDS: ASCORBIC ACID 500 MG TABLET (FP) PO SCH (21:24)
[2021-12-01] MEDS: NYSTATIN POWDER 100,000 UNITS/GM - 15 GM TOPICAL POWDER TP SCH ×3 (05:59→21:44)
[2021-12-01] MEDS: GABAPENTIN 300 MG CAPSULE PO SCH ×3 (05:59→21:45)
[2021-12-01] MEDS: CALCIUM 250MG/VIT-D 125 UNITS 1 COMBO TABLET PO SCH (09:49)
[2021-12-01] MEDS: FUROSEMIDE 40 MG TABLET (FP) PO SCH (09:49)
[2021-12-01] MEDS: LACTOBACILLUS ACIDOPHILUS 1 TABLET PO SCH (09:50)
[2021-12-01] MEDS: FAMOTIDINE 20 MG TABLET PO SCH (09:50)
[2021-12-01] MEDS: ASCORBIC ACID 500 MG TABLET (FP) PO SCH ×2 (09:50→21:45)
[2021-12-01] MEDS: ASPIRIN COATED 81 MG TABLET.EC PO SCH ×2 (09:50→21:43)
[2021-12-01] MEDS: SERTRALINE HCL 50 MG TABLET (FP) PO SCH (09:50)
[2021-12-01] MEDS: traMADol HCL 50 MG TABLET PO SCH ×2 (09:50→21:45)
[2021-12-01] MEDS: MULTIVITAMINS (DAILY MVI) TABLET (FP) PO SCH (09:51)
[2021-12-01] MEDS: AMINO ACIDS/PROTEIN HYDROLYS 30 ML LIQUID.PKT PO SCH (09:51)
[2021-12-01] MEDS: VANCOMYCIN/WATER FOR INJ (PEG) 1,000 MG/200 ML BAG IVPB SCH (16:13)
[2021-12-01] MEDS: ACETAMINOPHEN 500 MG TABLET (FP) PO PRN (17:45)
[2021-12-01] MEDS: ATORVASTATIN CA 10 MG TABLET (FP) PO SCH (21:43)
[2021-12-01] MEDS: MELATONIN 1 MG TABLET PO SCH (21:43)
[2021-12-02] MEDS: GABAPENTIN 300 MG CAPSULE PO SCH ×3 (05:35→21:55)
[2021-12-02] MEDS: NYSTATIN POWDER 100,000 UNITS/GM - 15 GM TOPICAL POWDER TP SCH ×3 (05:36→21:57)
[2021-12-02] MEDS: CALCIUM 250MG/VIT-D 125 UNITS 1 COMBO TABLET PO SCH (10:23)
[2021-12-02] MEDS: MULTIVITAMINS (DAILY MVI) TABLET (FP) PO SCH (10:23)
[2021-12-02] MEDS: SERTRALINE HCL 50 MG TABLET (FP) PO SCH (10:23)
[2021-12-02] MEDS: AMINO ACIDS/PROTEIN HYDROLYS 30 ML LIQUID.PKT PO SCH (10:23)
[2021-12-02] MEDS: FUROSEMIDE 40 MG TABLET (FP) PO SCH (10:23)
[2021-12-02] MEDS: ASPIRIN COATED 81 MG TABLET.EC PO SCH ×2 (10:23→21:55)
[2021-12-02] MEDS: ASCORBIC ACID 500 MG TABLET (FP) PO SCH ×2 (10:23→21:55)
[2021-12-02] MEDS: LACTOBACILLUS ACIDOPHILUS 1 TABLET PO SCH (10:23)
[2021-12-02] MEDS: FAMOTIDINE 20 MG TABLET PO SCH (10:23)
[2021-12-02] MEDS: traMADol HCL 50 MG TABLET PO SCH ×2 (10:24→21:56)
[2021-12-02] MEDS: VANCOMYCIN/WATER FOR INJ (PEG) 1,000 MG/200 ML BAG IVPB SCH (17:29)
[2021-12-02] MEDS: ATORVASTATIN CA 10 MG TABLET (FP) PO SCH (21:55)
[2021-12-02] MEDS: MELATONIN 1 MG TABLET PO SCH (21:55)
[2021-12-03] MEDS: NYSTATIN POWDER 100,000 UNITS/GM - 15 GM TOPICAL POWDER TP SCH ×2 (05:53→13:48)
[2021-12-03] MEDS: GABAPENTIN 300 MG CAPSULE PO SCH ×2 (05:53→13:47)
[2021-12-03] MEDS: AMINO ACIDS/PROTEIN HYDROLYS 30 ML LIQUID.PKT PO SCH (08:30)
[2021-12-03] MEDS: ASPIRIN COATED 81 MG TABLET.EC PO SCH (10:50)
[2021-12-03] MEDS: MULTIVITAMINS (DAILY MVI) TABLET (FP) PO SCH (10:50)
[2021-12-03] MEDS: FAMOTIDINE 20 MG TABLET PO SCH (10:50)
[2021-12-03] MEDS: ASCORBIC ACID 500 MG TABLET (FP) PO SCH (10:51)
[2021-12-03] MEDS: traMADol HCL 50 MG TABLET PO SCH (10:51)
[2021-12-03] MEDS: SERTRALINE HCL 50 MG TABLET (FP) PO SCH (10:51)
[2021-12-03] MEDS: LACTOBACILLUS ACIDOPHILUS 1 TABLET PO SCH (10:51)
[2021-12-03] MEDS: FUROSEMIDE 40 MG TABLET (FP) PO SCH (10:51)
[2021-12-03] MEDS: CALCIUM 250MG/VIT-D 125 UNITS 1 COMBO TABLET PO SCH (10:52)
[2021-12-03 15:16] VITALS: BP 115/69; PULSE 80; TEMP 98.5
== END 2021-12-03 17:55 | DRG 486 ==
LOC: JER 14:09 → JERBED 14:52 → J8W 10-30 11:56 → JICU 11-04 22:45 → J8W 11-10 06:40
PROVIDERS: ADMIT Family Medicine; ATTEND Family Medicine
PROC: 0QD Lower Bones, Extraction (ICD-10-PCS; 2021-11-04)
PROC: 0QDG0ZZ Extraction of Right Tibia, Open Approach (ICD-10-PCS; 2021-11-04)
PROC: 0SHC08Z Insertion of Spacer into Right Knee Joint, Open Approach (ICD-10-PCS; 2021-11-04)
PROC: 30233N1 Transfusion of Nonautologous Red Blood Cells into Peripheral Vein, Percutaneous Approach (ICD-10-PCS; 2021-11-04)
PROC: 0QTD0ZZ Resection of Right Patella, Open Approach (ICD-10-PCS; principal; 2021-11-04 14:00)
PROC: 05HB33Z Insertion of Infusion Device into Right Basilic Vein, Percutaneous Approach (ICD-10-PCS; 2021-12-03)
PROC: B51MZZA Fluoroscopy of Right Upper Extremity Veins, Guidance (ICD-10-PCS; 2021-12-03)
DX: T84.53XA Infection and inflammatory reaction due to internal right knee prosthesis, initial encounter (principal); T81.31XA Disruption of external operation (surgical) wound, not elsewhere classified, initial encounter; I96 Gangrene, not elsewhere classified; J44.9 Chronic obstructive pulmonary disease, unspecified; I50.9 Heart failure, unspecified; I11.0 Hypertensive heart disease with heart failure; E78.5 Hyperlipidemia, unspecified; A49.02 Methicillin resistant Staphylococcus aureus infection, unspecified site; D64.9 Anemia, unspecified; E83.52 Hypercalcemia; Y83.9 Surgical procedure, unspecified as the cause of abnormal reaction of the patient, or of later complication, without mention of misadventure at the time of the procedure
CPT/HCPCS: 0241U-QW; 36415; 36430; 36569; 71045-TC-FY; 73502-TC-RT-FY; 73552-TC-RT-FY; 73560-TC-RT-FY; 73590-TC-RT-FY; 77001-TC-FY; 80048; 80053; 81003; 82607; 82728; 82747; 82962; 83540; 83550; 83605; 83735; 84100; 84439; 84443; 85014; 85025; 85027; 85379; 85610; 85730; 86850; 86900; 86901; 86922; 87040; 87070; 87075; 87077; 87102; 87116; 87186; 87205; 87206; 87210; 88304-TC; 88311-TC; 93005; 93010; 93970-TC; 94010; 94760; 99285-25; C1751; C9803-CS; G0480; J1100; J1439; J3490; P9058; U0003; U0005

== ENCOUNTER 2022-01-27 13:00 | Inpatient (IN) | payer OTHER ==
[2022-02-03] MEDS ORDERED: MIDAZOLAM HCL 2 MG/2 ML SINGLE DOSE VIAL ONE (14:18)
[2022-02-03] MEDS ORDERED: PROPOFOL 40 ML ONE (14:18)
[2022-02-03] MEDS ORDERED: ROPIVACAINE HCL 0.5% 30ML VIAL ONE (16:03)
[2022-02-03] MEDS ORDERED: LIDOCAINE HCL 1%, 10 MG/ML (20ML VIAL) ONE (16:03)
[2022-02-03] MEDS ORDERED: ROCURONIUM BROMIDE 50 MG/5 ML SYRINGE ONE (16:41)
[2022-02-03] MEDS ORDERED: VANCOMYCIN 1,000 MG VIAL (RESTRICTED TO ID ONLY) ONE (16:49)
[2022-02-03] MEDS ORDERED: ceFAZolin SODIUM 1 GM VIAL ONE (16:49)
[2022-02-03] MEDS ORDERED: TRANEXAMIC ACID 1000 MG/10 ML VIAL ONE (16:49)
[2022-02-03] MEDS ORDERED: VANCOMYCIN 1,000 MG VIAL (RESTRICTED TO ID ONLY) IVPB ONE (16:50)
[2022-02-03] MEDS ORDERED: ceFAZolin SODIUM 1 GM VIAL IVPB ONE (17:10)
[2022-02-03] MEDS ORDERED: DEXAMETHASONE SOD PHOSPHATE 4 MG/1 ML VIAL ONE (17:17)
[2022-02-03] MEDS ORDERED: ONDANSETRON 4 MG/2 ML VIAL ONE ×2 (17:17→21:17)
[2022-02-03] MEDS ORDERED: PHENYLEPHRINE HCL 10 MG/1 ML SINGLE DOSE VIAL ONE (17:41)
[2022-02-03] MEDS ORDERED: LIDOCAINE HCL/PF 2% SDV 5ML VIAL ONE (17:41)
[2022-02-03] MEDS ORDERED: HYDROmorphone HCl 2 MG/ML VIAL ONE (17:49)
[2022-02-03] MEDS ORDERED: ONDANSETRON 4 MG/2 ML VIAL IVPUSH PRN ×2 (19:21→20:02)
[2022-02-03] MEDS ORDERED: NEOSTIGMINE METHYLSULFATE 0.5 MG/1 ML - 10 ML MDV ONE (19:28)
[2022-02-03] MEDS ORDERED: GLYCOPYRROLATE 0.2 MG/1 ML VIAL ONE (19:28)
[2022-02-03] MEDS ORDERED: LACTATED RINGERS SOLUTION 1,000 ML IV SCH (19:30)
[2022-02-03] MEDS ORDERED: MAG HYDROX/AL HYDROX/SIMETH 30 ML UNIT-DOSE CUP PO PRN (20:02)
[2022-02-03] MEDS ORDERED: MAGNESIUM HYDROX 2400MG/30ML ORAL SUSPENSION 30 ML CUP PO PRN (20:02)
[2022-02-03] MEDS ORDERED: ONDANSETRON 4 MG/2 ML VIAL IVPUSH ONE (21:18)
[2022-02-03] MEDS ORDERED: CELECOXIB 200 MG CAPSULE PO SCH (22:00)
[2022-02-03] MEDS: ASPIRIN COATED 81 MG TABLET.EC PO SCH (23:14)
[2022-02-03] MEDS: ATORVASTATIN CA 10 MG TABLET (FP) PO SCH (23:14)
[2022-02-03] MEDS: SENNOSIDES 8.6MG TABLET (FP) PO SCH (23:14)
[2022-02-03] MEDS: LACTOBACILLUS ACIDOPHILUS 1 TABLET PO SCH (23:14)
[2022-02-03] MEDS: MELATONIN 1 MG TABLET PO SCH (23:14)
[2022-02-03] MEDS: DOCUSATE SODIUM 100 MG CAPSULE (FP) PO SCH (23:14)
[2022-02-03] MEDS: GABAPENTIN 300 MG CAPSULE PO SCH (23:15)
[2022-02-03] MEDS: LACTATED RINGERS SOLUTION 1,000 ML IV SCH (23:15)
[2022-02-03] MEDS: CEFAZOLIN SODIUM 2 GM in DEXTROSE 5%-WATER 100 ML IVPB SCH (23:16)
[2022-02-04] MEDS: ACETAMINOPHEN 1000 MG/100 ML BAG IVPB PRN (00:34)
[2022-02-04] MEDS: LACTATED RINGERS SOLUTION 1,000 ML IV SCH (03:49)
[2022-02-04] MEDS: CEFAZOLIN SODIUM 2 GM in DEXTROSE 5%-WATER 100 ML IVPB SCH ×2 (05:55→10:21)
[2022-02-04] MEDS: GABAPENTIN 300 MG CAPSULE PO SCH ×3 (05:56→21:04)
[2022-02-04] MEDS: ASPIRIN COATED 81 MG TABLET.EC PO SCH ×2 (10:19→21:04)
[2022-02-04] MEDS: LACTOBACILLUS ACIDOPHILUS 1 TABLET PO SCH ×2 (10:19→21:04)
[2022-02-04] MEDS: FUROSEMIDE 40 MG TABLET (FP) PO SCH (10:19)
[2022-02-04] MEDS: PANTOPRAZOLE 40 MG TABLET PO SCH (10:20)
[2022-02-04] MEDS: SENNOSIDES 8.6MG TABLET (FP) PO SCH ×2 (10:20→21:04)
[2022-02-04] MEDS: SERTRALINE HCL 25 MG TABLET (FP) PO SCH (10:20)
[2022-02-04] MEDS: FAMOTIDINE 20 MG TABLET PO SCH (10:20)
[2022-02-04 12:18] LABS: HEMATOCRIT 31.9 % (32.4-45.2); HEMOGLOBIN 10.9 GM/dL (10.7-15.3); MCHC 34.3 g/dl (32.0-36.0); MEAN CELL VOLUME 93.4 fl (80-96); MEAN PLT VOLUME 8.1 fl (7.5-11.1); PLATELET COUNT 168 10^3/uL (134-434); RBC 3.42 M/mm3 (3.60-5.2); RDW 14.5 % (11.6-15.6); WHITE BLOOD COUNT 8.9 K/mm3 (4.0-10.0)
[2022-02-04 12:50] LABS: CALCIUM 10.1 mg/dL (8.5-10.1)
[2022-02-04 12:53] LABS: CREATININE 0.9 mg/dL (0.55-1.3)
[2022-02-04] MEDS: VANCOMYCIN/WATER FOR INJ (PEG) 1,000 MG/200 ML BAG IVPB SCH (19:37)
[2022-02-04] MEDS: MELATONIN 1 MG TABLET PO SCH (21:04)
[2022-02-04] MEDS: ATORVASTATIN CA 10 MG TABLET (FP) PO SCH (21:04)
[2022-02-04] MEDS: DOCUSATE SODIUM 100 MG CAPSULE (FP) PO SCH (21:04)
[2022-02-05] MEDS: GABAPENTIN 300 MG CAPSULE PO SCH ×3 (05:57→21:04)
[2022-02-05 08:43] LABS: HEMATOCRIT 31.9 % (32.4-45.2); HEMOGLOBIN 10.5 GM/dL (10.7-15.3); MCH 30.9 pg (25.7-33.7); MCHC 32.8 g/dl (32.0-36.0); MEAN CELL VOLUME 94.1 fl (80-96); MEAN PLT VOLUME 7.9 fl (7.5-11.1); PLATELET COUNT 148 10^3/uL (134-434); RBC 3.39 M/mm3 (3.60-5.2); RDW 14.5 % (11.6-15.6); WHITE BLOOD COUNT 6.7 K/mm3 (4.0-10.0)
[2022-02-05 09:16] LABS: ALBUMIN 2.7 g/dl (3.4-5.0); BLOOD UREA NITROGEN 23.5 mg/dL (7-18); CALCIUM 9.8 mg/dL (8.5-10.1); MAGNESIUM 2.1 mg/dL (1.8-2.4)
[2022-02-05 09:19] LABS: IRON SERUM 24 ug/dL (50-175); TOTAL IRON BINDING CAPACITY 189 ug/dL (250-450)
[2022-02-05 09:21] LABS: CREATININE 0.7 mg/dL (0.55-1.3); TOT PROT 5.7 g/dl (6.4-8.2)
[2022-02-05 09:22] LABS: BILIRUBIN,TOTAL 0.8 mg/dL (0.2-1)
[2022-02-05] MEDS ORDERED: IRON SUCROSE INJECTION 200 MG in SODIUM CHLORIDE 90 ML IVPB ONE (10:28)
[2022-02-05] MEDS: FUROSEMIDE 40 MG TABLET (FP) PO SCH (10:40)
[2022-02-05] MEDS: PANTOPRAZOLE 40 MG TABLET PO SCH (10:41)
[2022-02-05] MEDS: SENNOSIDES 8.6MG TABLET (FP) PO SCH ×2 (10:41→21:06)
[2022-02-05] MEDS: ASPIRIN COATED 81 MG TABLET.EC PO SCH ×2 (10:41→21:04)
[2022-02-05] MEDS: SERTRALINE HCL 25 MG TABLET (FP) PO SCH (10:41)
[2022-02-05] MEDS: FAMOTIDINE 20 MG TABLET PO SCH (10:41)
[2022-02-05] MEDS: LACTOBACILLUS ACIDOPHILUS 1 TABLET PO SCH ×2 (10:41→21:04)
[2022-02-05 11:31] VITALS: BMI 29.5
[2022-02-05] MEDS: VANCOMYCIN/WATER FOR INJ (PEG) 1,000 MG/200 ML BAG IVPB SCH (20:42)
[2022-02-05] MEDS: DOCUSATE SODIUM 100 MG CAPSULE (FP) PO SCH (21:04)
[2022-02-05] MEDS: ATORVASTATIN CA 10 MG TABLET (FP) PO SCH (21:04)
[2022-02-05] MEDS: MELATONIN 1 MG TABLET PO SCH (21:05)
[2022-02-06] MEDS: GABAPENTIN 300 MG CAPSULE PO SCH ×3 (06:05→21:37)
[2022-02-06 09:31] LABS: CHLORIDE 102 mmol/L (98-107); SODIUM 138 mmol/L (136-145)
[2022-02-06 09:38] LABS: EPI CELLS 8 /uL (0-25.1); HYALINE CASTS 1 /uL (0-3.1); URINE APPEARANCE CLOUDY; URINE BACTERIA 68 /uL (0-1359); URINE BILIRUBIN NEGATIVE (NEGATIVE); URINE COLOR YELLOW; URINE GLUCOSE (UA) NEGATIVE (NEGATIVE); URINE KETONE NEGATIVE (NEGATIVE); URINE LEUK ESTERASE 3+ (NEGATIVE); URINE NITRITE NEGATIVE (NEGATIVE); URINE PROTEIN TRACE (NEGATIVE); URINE RBC 4 /uL (0-23.9); URINE UROBILINOGEN 0.2 mg/dL (0.2-1.0); URINE WBC 1203 /uL (0-25.8)
[2022-02-06 09:39] LABS: BILIRUBIN,TOTAL 0.7 mg/dL (0.2-1)
[2022-02-06 09:41] LABS: ALBUMIN 2.4 g/dl (3.4-5.0)
[2022-02-06 09:42] LABS: CREATININE 0.6 mg/dL (0.55-1.3); TOT PROT 5.5 g/dl (6.4-8.2)
[2022-02-06 09:43] LABS: ALK PHOS 89 U/L (45-117); GLUCOSE,RANDOM 149 mg/dL (74-106)
[2022-02-06 09:44] LABS: ANION GAP 8 MMOL/L (8-16); BLOOD UREA NITROGEN 18.2 mg/dL (7-18); CALCIUM 9.5 mg/dL (8.5-10.1); CO2 28 mmol/L (21-32)
[2022-02-06 09:46] LABS: SGOT/AST 11 U/L (15-37); SGPT/ALT < 6 U/L (13-61)
[2022-02-06] MEDS: SENNOSIDES 8.6MG TABLET (FP) PO SCH ×2 (09:53→21:37)
[2022-02-06] MEDS: FUROSEMIDE 40 MG TABLET (FP) PO SCH (09:53)
[2022-02-06] MEDS: ASPIRIN COATED 81 MG TABLET.EC PO SCH ×2 (09:53→21:38)
[2022-02-06] MEDS: SERTRALINE HCL 25 MG TABLET (FP) PO SCH (09:53)
[2022-02-06] MEDS: FAMOTIDINE 20 MG TABLET PO SCH (09:53)
[2022-02-06] MEDS: LACTOBACILLUS ACIDOPHILUS 1 TABLET PO SCH ×2 (09:53→21:38)
[2022-02-06] MEDS: PANTOPRAZOLE 40 MG TABLET PO SCH (09:53)
[2022-02-06] MEDS: ACETAMINOPHEN 1000 MG/100 ML BAG IVPB PRN (10:15)
[2022-02-06 10:17] LABS: URINE CRYSTALS NEGATIVE /hpf
[2022-02-06] MEDS: VANCOMYCIN/WATER FOR INJ (PEG) 1,000 MG/200 ML BAG IVPB SCH (18:43)
[2022-02-06] MEDS: DOCUSATE SODIUM 100 MG CAPSULE (FP) PO SCH (21:37)
[2022-02-06] MEDS: ATORVASTATIN CA 10 MG TABLET (FP) PO SCH (21:38)
[2022-02-06] MEDS: MELATONIN 1 MG TABLET PO SCH (21:38)
[2022-02-07] MEDS: GABAPENTIN 300 MG CAPSULE PO SCH ×3 (06:18→21:49)
[2022-02-07] MEDS: PANTOPRAZOLE 40 MG TABLET PO SCH (10:06)
[2022-02-07] MEDS: APIXABAN 5 MG TABLET PO SCH ×3 (10:06→21:49)
[2022-02-07] MEDS: LACTOBACILLUS ACIDOPHILUS 1 TABLET PO SCH ×2 (10:06→21:49)
[2022-02-07] MEDS: ASPIRIN COATED 81 MG TABLET.EC PO SCH ×2 (10:06→21:49)
[2022-02-07] MEDS: FAMOTIDINE 20 MG TABLET PO SCH (10:06)
[2022-02-07] MEDS: FUROSEMIDE 40 MG TABLET (FP) PO SCH (10:06)
[2022-02-07] MEDS: SENNOSIDES 8.6MG TABLET (FP) PO SCH ×2 (10:06→21:48)
[2022-02-07] MEDS: SERTRALINE HCL 25 MG TABLET (FP) PO SCH (10:06)
[2022-02-07 14:47] VITALS: RESP 18
[2022-02-07] MEDS: VANCOMYCIN/WATER FOR INJ (PEG) 1,000 MG/200 ML BAG IVPB SCH (18:06)
[2022-02-07] MEDS: MELATONIN 1 MG TABLET PO SCH (21:48)
[2022-02-07] MEDS: ATORVASTATIN CA 10 MG TABLET (FP) PO SCH (21:49)
[2022-02-07] MEDS: DOCUSATE SODIUM 100 MG CAPSULE (FP) PO SCH (21:49)
[2022-02-08] MEDS: GABAPENTIN 300 MG CAPSULE PO SCH ×3 (05:05→21:35)
[2022-02-08 09:13] LABS: HEMATOCRIT 27.5 % (32.4-45.2); HEMOGLOBIN 9.4 GM/dL (10.7-15.3); MCHC 34.1 g/dl (32.0-36.0); MEAN CELL VOLUME 93.8 fl (80-96); MEAN PLT VOLUME 7.3 fl (7.5-11.1); PLATELET COUNT 172 10^3/uL (134-434); RBC 2.93 M/mm3 (3.60-5.2); WHITE BLOOD COUNT 4.1 K/mm3 (4.0-10.0)
[2022-02-08 09:41] LABS: ALBUMIN 2.3 g/dl (3.4-5.0); BLOOD UREA NITROGEN 12.4 mg/dL (7-18); MAGNESIUM 1.9 mg/dL (1.8-2.4)
[2022-02-08 09:43] LABS: CREATININE 0.6 mg/dL (0.55-1.3)
[2022-02-08 09:45] LABS: BILIRUBIN,TOTAL 0.4 mg/dL (0.2-1); TOT PROT 5.2 g/dl (6.4-8.2)
[2022-02-08] MEDS: PANTOPRAZOLE 40 MG TABLET PO SCH (10:18)
[2022-02-08] MEDS: SERTRALINE HCL 25 MG TABLET (FP) PO SCH (10:18)
[2022-02-08] MEDS: APIXABAN 5 MG TABLET PO SCH ×2 (10:18→21:34)
[2022-02-08] MEDS: LACTOBACILLUS ACIDOPHILUS 1 TABLET PO SCH ×2 (10:18→21:35)
[2022-02-08] MEDS: FUROSEMIDE 40 MG TABLET (FP) PO SCH (10:18)
[2022-02-08] MEDS: ASPIRIN COATED 81 MG TABLET.EC PO SCH ×2 (10:18→21:35)
[2022-02-08] MEDS: FAMOTIDINE 20 MG TABLET PO SCH (10:18)
[2022-02-08] MEDS: SENNOSIDES 8.6MG TABLET (FP) PO SCH ×2 (10:19→21:35)
[2022-02-08] MEDS: MELATONIN 1 MG TABLET PO SCH (21:34)
[2022-02-08] MEDS: ATORVASTATIN CA 10 MG TABLET (FP) PO SCH (21:34)
[2022-02-08] MEDS: DOCUSATE SODIUM 100 MG CAPSULE (FP) PO SCH (21:34)
[2022-02-09] MEDS: GABAPENTIN 300 MG CAPSULE PO SCH ×3 (05:57→21:16)
[2022-02-09 09:10] LABS: BLOOD UREA NITROGEN 12.2 mg/dL (7-18); CALCIUM 9.7 mg/dL (8.5-10.1)
[2022-02-09 09:13] LABS: CREATININE 0.6 mg/dL (0.55-1.3)
[2022-02-09] MEDS: PANTOPRAZOLE 40 MG TABLET PO SCH (09:19)
[2022-02-09] MEDS: SERTRALINE HCL 25 MG TABLET (FP) PO SCH (09:19)
[2022-02-09] MEDS: LACTOBACILLUS ACIDOPHILUS 1 TABLET PO SCH ×2 (09:19→21:16)
[2022-02-09] MEDS: FAMOTIDINE 20 MG TABLET PO SCH (09:19)
[2022-02-09] MEDS: APIXABAN 5 MG TABLET PO SCH ×2 (09:19→21:16)
[2022-02-09] MEDS: ASPIRIN COATED 81 MG TABLET.EC PO SCH ×2 (09:19→21:16)
[2022-02-09] MEDS: FUROSEMIDE 40 MG TABLET (FP) PO SCH (09:19)
[2022-02-09] MEDS: SENNOSIDES 8.6MG TABLET (FP) PO SCH ×2 (09:19→21:17)
[2022-02-09] MEDS ORDERED: ACETAMINOPHEN 1000 MG/100 ML BAG IVPB PRN (15:30)
[2022-02-09] MEDS ORDERED: KETOROLAC TROMETHAMINE 15 MG/ML VIAL IVPUSH PRN (15:30)
[2022-02-09] MEDS: DOCUSATE SODIUM 100 MG CAPSULE (FP) PO SCH (21:16)
[2022-02-09] MEDS: ATORVASTATIN CA 10 MG TABLET (FP) PO SCH (21:16)
[2022-02-09] MEDS: MELATONIN 1 MG TABLET PO SCH (21:16)
[2022-02-10] MEDS: GABAPENTIN 300 MG CAPSULE PO SCH ×2 (06:16→12:59)
[2022-02-10] MEDS: PANTOPRAZOLE 40 MG TABLET PO SCH (09:34)
[2022-02-10] MEDS: SERTRALINE HCL 25 MG TABLET (FP) PO SCH (09:34)
[2022-02-10] MEDS: FAMOTIDINE 20 MG TABLET PO SCH (09:34)
[2022-02-10] MEDS: APIXABAN 5 MG TABLET PO SCH (09:34)
[2022-02-10] MEDS: ASPIRIN COATED 81 MG TABLET.EC PO SCH (09:34)
[2022-02-10] MEDS: LACTOBACILLUS ACIDOPHILUS 1 TABLET PO SCH (09:34)
[2022-02-10] MEDS: FUROSEMIDE 40 MG TABLET (FP) PO SCH (09:34)
[2022-02-10] MEDS: SENNOSIDES 8.6MG TABLET (FP) PO SCH (09:34)
[2022-02-10 12:19] LABS: ALBUMIN 2.6 g/dl (3.4-5.0); BILIRUBIN,TOTAL 0.2 mg/dL (0.2-1); CALCIUM 10.3 mg/dL (8.5-10.1); CREATININE 0.6 mg/dL (0.55-1.3); TOT PROT 5.7 g/dl (6.4-8.2)
[2022-02-10 14:38] VITALS: BP 128/56; PULSE 75; TEMP 98.7
== END 2022-02-10 14:51 | DRG 475 ==
LOC: J2C 02-03 04:05 → J6S 02-03 22:07
PROVIDERS: ADMIT Orthopaedic Surgery Orthopaedic Surgery of the Spine; ATTEND Orthopaedic Surgery Orthopaedic Surgery of the Spine
PROC: 0SPC08Z Removal of Spacer from Right Knee Joint, Open Approach (ICD-10-PCS; 2022-02-03)
PROC: 0Y6C0Z2 Detachment at Right Upper Leg, Mid, Open Approach (ICD-10-PCS; principal; 2022-02-03 16:30)
DX: T84.53XA Infection and inflammatory reaction due to internal right knee prosthesis, initial encounter (principal); J98.11 Atelectasis; N39.0 Urinary tract infection, site not specified; E78.5 Hyperlipidemia, unspecified; D64.9 Anemia, unspecified; E83.52 Hypercalcemia; M89.9 Disorder of bone, unspecified; B96.5 Pseudomonas (aeruginosa) (mallei) (pseudomallei) as the cause of diseases classified elsewhere; J44.9 Chronic obstructive pulmonary disease, unspecified; I11.0 Hypertensive heart disease with heart failure; I50.9 Heart failure, unspecified; Z86.718 Personal history of other venous thrombosis and embolism; Y83.8 Other surgical procedures as the cause of abnormal reaction of the patient, or of later complication, without mention of misadventure at the time of the procedure
CPT/HCPCS: 36415; 71045-TC-FY; 80048; 80053; 81003; 83540; 83550; 83735; 83970; 85027; 86850; 86900; 86901; 86922; 87086; 87186; 88307-TC; 88311-TC; 93005; 93010; 94760; 97116-GP; 97162-GP; C9803-CS; J1756; U0003; U0005

== ENCOUNTER 2022-03-08 20:16 | Inpatient (IN) | payer OTHER ==
[2022-03-08] MEDS ORDERED: VANCOMYCIN 1 GM in D5W (PRE-DOCKED) 1,000 MG/250 ML IVPB ONE (20:48)
[2022-03-08] MEDS ORDERED: PIPERACILLIN/TAZOB 3.375 GM 3.375 GM in DEXTROSE 5%-WATER - 50 ML IVPB ONE (20:48)
[2022-03-08] MEDS ORDERED: ACETAMINOPHEN 1000 MG/100 ML BAG IVPB ONE (20:50)
[2022-03-08] MEDS ORDERED: ACETAMINOPHEN INJECTION 100 ML IVPB ONE (21:26)
[2022-03-08] MEDS ORDERED: PIPERACILLIN/TAZOB 3.375 GM 3.375 GM/50 ML BAG IVPB ONE (21:26)
[2022-03-08] MEDS ORDERED: VANCOMYCIN/WATER FOR INJ (PEG) 1,000 MG/200 ML BAG IVPB ONE (21:44)
[2022-03-08 22:09] LABS: BASO % 0.3 % (0-2.0); EOS % 2.9 % (0-4.5); HEMATOCRIT 28.9 % (32.4-45.2); HEMOGLOBIN 9.3 GM/dL (10.7-15.3); MCH 31.1 pg (25.7-33.7); MCHC 32.4 g/dl (32.0-36.0); MEAN CELL VOLUME 96.2 fl (80-96); MEAN PLT VOLUME 7.7 fl (7.5-11.1); MONO % 7.1 % (3.8-10.2); NEUT % 82.7 % (42.8-82.8); PLATELET COUNT 373 10^3/uL (134-434); RDW 14.1 % (11.6-15.6); WHITE BLOOD COUNT 12.7 K/mm3 (4.0-10.0)
[2022-03-08 22:29] LABS: CALCIUM 10.8 mg/dL (8.5-10.1)
[2022-03-08 22:30] LABS: ALBUMIN 1.9 g/dl (3.4-5.0); BLOOD UREA NITROGEN 19.4 mg/dL (7-18)
[2022-03-08 22:33] LABS: CREATININE 0.6 mg/dL (0.55-1.3)
[2022-03-08 22:34] LABS: BILIRUBIN,TOTAL 0.3 mg/dL (0.2-1); TOT PROT 5.6 g/dl (6.4-8.2)
[2022-03-09] MEDS ORDERED: ALBUTEROL SO4 2.5/IPRATROPIUM 0.5 INH SOL 3 ML VIAL.NEB. NEB ONE (00:43)
[2022-03-09 05:43] LABS: URINE APPEARANCE CLEAR; URINE BILIRUBIN NEGATIVE (NEGATIVE); URINE COLOR YELLOW; URINE GLUCOSE (UA) NEGATIVE (NEGATIVE); URINE KETONE NEGATIVE (NEGATIVE); URINE LEUK ESTERASE NEGATIVE (NEGATIVE); URINE NITRITE NEGATIVE (NEGATIVE); URINE PROTEIN TRACE (NEGATIVE); URINE UROBILINOGEN 0.2 mg/dL (0.2-1.0)
[2022-03-09 07:06] LABS: BASO % 0.3 % (0-2.0); EOS % 3.2 % (0-4.5); HEMATOCRIT 26.8 % (32.4-45.2); HEMOGLOBIN 8.5 GM/dL (10.7-15.3); LYMPH % 6.1 % (8-40); MCH 31.1 pg (25.7-33.7); MCHC 31.9 g/dl (32.0-36.0); MEAN CELL VOLUME 97.7 fl (80-96); MEAN PLT VOLUME 7.9 fl (7.5-11.1); MONO % 5.5 % (3.8-10.2); NEUT % 84.9 % (42.8-82.8); PLATELET COUNT 308 10^3/uL (134-434); RBC 2.75 M/mm3 (3.60-5.2); WHITE BLOOD COUNT 12.6 K/mm3 (4.0-10.0)
[2022-03-09 07:29] LABS: BLOOD UREA NITROGEN 19.8 mg/dL (7-18); CALCIUM 10.7 mg/dL (8.5-10.1)
[2022-03-09 07:32] LABS: CREATININE 0.6 mg/dL (0.55-1.3)
[2022-03-09] MEDS ORDERED: ACETAMINOPHEN 500 MG TABLET (FP) PO PRN (11:58)
[2022-03-09] MEDS ORDERED: traMADol HCL 50 MG TABLET PO PRN (11:58)
[2022-03-09] MEDS ORDERED: PIPERACILLIN/TAZOB 3.375 GM 3.375 GM in DEXTROSE 5%-WATER - 50 ML IVPB SCH ×2 (12:00→12:15)
[2022-03-09] MEDS ORDERED: PIPERACILLIN/TAZOB 3.375 GM 3.375 GM/50 ML BAG IVPB ONE ×2 (12:14→17:48)
[2022-03-09] MEDS ORDERED: GABAPENTIN 300 MG CAPSULE ONE ×3 (15:39→18:51)
[2022-03-09] MEDS: GABAPENTIN 300 MG CAPSULE PO SCH ×2 (17:36→22:49)
[2022-03-09] MEDS: PIPERACILLIN/TAZOB 3.375 GM 3.375 GM in DEXTROSE 5%-WATER - 50 ML IVPB SCH (18:01)
[2022-03-09] MEDS ORDERED: APIXABAN 5 MG TABLET ONE (18:50)
[2022-03-09] MEDS ORDERED: ATORVASTATIN CA 10 MG TABLET (FP) ONE (18:50)
[2022-03-09] MEDS ORDERED: traMADol HCL 50 MG TABLET ONE (19:18)
[2022-03-09] MEDS ORDERED: ATORVASTATIN CA 10 MG TABLET (FP) PO SCH (22:00)
[2022-03-09] MEDS ORDERED: APIXABAN 5 MG TABLET PO SCH (22:00)
[2022-03-09] MEDS: LACTOBACILLUS ACIDOPHILUS 1 TABLET PO SCH (22:49)
[2022-03-10] MEDS: PIPERACILLIN/TAZOB 3.375 GM 3.375 GM in DEXTROSE 5%-WATER - 50 ML IVPB SCH ×3 (02:04→17:13)
[2022-03-10] MEDS: GABAPENTIN 300 MG CAPSULE PO SCH ×3 (06:42→22:09)
[2022-03-10] MEDS: LACTOBACILLUS ACIDOPHILUS 1 TABLET PO SCH ×2 (09:22→22:09)
[2022-03-10] MEDS ORDERED: VANCOMYCIN 1 GM in D5W (PRE-DOCKED) 1,000 MG/250 ML IVPB SCH (10:00)
[2022-03-10] MEDS ORDERED: PANTOPRAZOLE 40 MG TABLET PO SCH (10:00)
[2022-03-10] MEDS ORDERED: SERTRALINE HCL 25 MG TABLET (FP) PO SCH (10:00)
[2022-03-10] MEDS ORDERED: FUROSEMIDE 40 MG TABLET (FP) PO SCH (10:00)
[2022-03-10] MEDS ORDERED: ENOXAPARIN NA (PORCINE) 80 MG/0.8 ML DISP.SYRIN SQ SCH (14:00)
[2022-03-10] MEDS: ENOXAPARIN NA (PORCINE) 80 MG/0.8 ML DISP.SYRIN SQ SCH ×2 (14:34→22:09)
[2022-03-10] MEDS: VANCOMYCIN/WATER FOR INJ (PEG) 1,000 MG/200 ML BAG IVPB SCH (14:34)
[2022-03-10] MEDS: ATORVASTATIN CA 10 MG TABLET (FP) PO SCH (22:09)
[2022-03-11] MEDS: PIPERACILLIN/TAZOB 3.375 GM 3.375 GM in DEXTROSE 5%-WATER - 50 ML IVPB SCH ×3 (01:55→18:13)
[2022-03-11] MEDS: GABAPENTIN 300 MG CAPSULE PO SCH ×3 (05:48→22:17)
[2022-03-11] MEDS: FUROSEMIDE 40 MG TABLET (FP) PO SCH (09:48)
[2022-03-11] MEDS: PANTOPRAZOLE 40 MG TABLET PO SCH (09:49)
[2022-03-11] MEDS: LACTOBACILLUS ACIDOPHILUS 1 TABLET PO SCH ×2 (09:49→22:16)
[2022-03-11] MEDS: ENOXAPARIN NA (PORCINE) 80 MG/0.8 ML DISP.SYRIN SQ SCH ×2 (09:50→22:17)
[2022-03-11] MEDS: SERTRALINE HCL 25 MG TABLET (FP) PO SCH (09:50)
[2022-03-11] MEDS ORDERED: VANCOMYCIN 1 GM in D5W (PRE-DOCKED) 1,000 MG/250 ML IVPB SCH (10:00)
[2022-03-11 10:36] LABS: HEMATOCRIT 26.3 % (32.4-45.2); HEMOGLOBIN 8.7 GM/dL (10.7-15.3); MCH 31.7 pg (25.7-33.7); MEAN PLT VOLUME 6.5 fl (7.5-11.1); PLATELET COUNT 434 10^3/uL (134-434); RBC 2.74 M/mm3 (3.60-5.2); RDW 13.8 % (11.6-15.6); WHITE BLOOD COUNT 6.1 K/mm3 (4.0-10.0)
[2022-03-11 10:57] LABS: ANISOCYTOSIS 0; HELMET CELLS 0; HOWELL-JOLLY BODIES 0; MACROCYTOSIS 0; OVALOCYTE 0; ROULEAU 0; SICKELED CELLS 0; TARGET CELLS 0; TEAR DROP CELLS 0; TOXIC GRANULATION 0
[2022-03-11 11:25] LABS: CALCIUM 11.6 mg/dL (8.5-10.1)
[2022-03-11 11:26] LABS: BLOOD UREA NITROGEN 16.4 mg/dL (7-18)
[2022-03-11 11:28] LABS: ALBUMIN 1.9 g/dl (3.4-5.0)
[2022-03-11 11:29] LABS: CREATININE 0.5 mg/dL (0.55-1.3)
[2022-03-11 11:31] LABS: TOT PROT 5.4 g/dl (6.4-8.2)
[2022-03-11 11:35] LABS: BILIRUBIN,TOTAL 1.1 mg/dL (0.2-1)
[2022-03-11] MEDS: traMADol HCL 50 MG TABLET PO PRN (13:21)
[2022-03-11] MEDS: VANCOMYCIN/WATER FOR INJ (PEG) 1,000 MG/200 ML BAG IVPB SCH (14:40)
[2022-03-11] MEDS: ATORVASTATIN CA 10 MG TABLET (FP) PO SCH (22:17)
[2022-03-12] MEDS: PIPERACILLIN/TAZOB 3.375 GM 3.375 GM in DEXTROSE 5%-WATER - 50 ML IVPB SCH (01:26)
[2022-03-12] MEDS: GABAPENTIN 300 MG CAPSULE PO SCH ×3 (06:37→23:39)
[2022-03-12] MEDS: AMINO ACIDS/PROTEIN HYDROLYS 30 ML LIQUID.PKT PO SCH (08:11)
[2022-03-12] MEDS: MULTIVITAMINS THER W-MINERALS COMBO TABLET (FP) PO SCH (09:31)
[2022-03-12] MEDS: LACTOBACILLUS ACIDOPHILUS 1 TABLET PO SCH ×2 (09:31→23:39)
[2022-03-12] MEDS: FUROSEMIDE 40 MG TABLET (FP) PO SCH (09:31)
[2022-03-12] MEDS: ASCORBIC ACID 250 MG TABLET (FP) PO SCH (09:31)
[2022-03-12] MEDS: ZINC SULFATE 220 MG CAPSULE (FP) PO SCH (09:31)
[2022-03-12] MEDS: ENOXAPARIN NA (PORCINE) 80 MG/0.8 ML DISP.SYRIN SQ SCH ×2 (09:31→23:40)
[2022-03-12] MEDS: PANTOPRAZOLE 40 MG TABLET PO SCH (09:31)
[2022-03-12] MEDS: SERTRALINE HCL 25 MG TABLET (FP) PO SCH (09:31)
[2022-03-12] MEDS: VANCOMYCIN/WATER FOR INJ (PEG) 1,000 MG/200 ML BAG IVPB SCH (14:16)
[2022-03-12] MEDS: MUPIROCIN CA 2% TOPICAL CREAM 15 GM TUBE TP SCH (23:39)
[2022-03-12] MEDS: ATORVASTATIN CA 10 MG TABLET (FP) PO SCH (23:39)
[2022-03-13] MEDS: GABAPENTIN 300 MG CAPSULE PO SCH ×3 (06:56→22:28)
[2022-03-13] MEDS: AMINO ACIDS/PROTEIN HYDROLYS 30 ML LIQUID.PKT PO SCH ×2 (08:32→08:43)
[2022-03-13] MEDS: ZINC SULFATE 220 MG CAPSULE (FP) PO SCH (09:31)
[2022-03-13] MEDS: ENOXAPARIN NA (PORCINE) 80 MG/0.8 ML DISP.SYRIN SQ SCH ×2 (09:31→22:32)
[2022-03-13] MEDS: PANTOPRAZOLE 40 MG TABLET PO SCH (09:31)
[2022-03-13] MEDS: SERTRALINE HCL 25 MG TABLET (FP) PO SCH (09:31)
[2022-03-13] MEDS: MULTIVITAMINS THER W-MINERALS COMBO TABLET (FP) PO SCH (09:31)
[2022-03-13] MEDS: ASCORBIC ACID 250 MG TABLET (FP) PO SCH (09:31)
[2022-03-13] MEDS: LACTOBACILLUS ACIDOPHILUS 1 TABLET PO SCH ×2 (09:31→22:28)
[2022-03-13] MEDS: MUPIROCIN CA 2% TOPICAL CREAM 15 GM TUBE TP SCH ×2 (09:32→23:22)
[2022-03-13] MEDS: FUROSEMIDE 40 MG TABLET (FP) PO SCH (09:32)
[2022-03-13] MEDS: traMADol HCL 50 MG TABLET PO PRN (13:11)
[2022-03-13] MEDS: VANCOMYCIN/WATER FOR INJ (PEG) 1,000 MG/200 ML BAG IVPB SCH (14:44)
[2022-03-13] MEDS: ATORVASTATIN CA 10 MG TABLET (FP) PO SCH (22:28)
[2022-03-13] MEDS: ACETAMINOPHEN 500 MG TABLET (FP) PO PRN (22:30)
[2022-03-14] MEDS: GABAPENTIN 300 MG CAPSULE PO SCH ×3 (07:17→21:33)
[2022-03-14] MEDS: AMINO ACIDS/PROTEIN HYDROLYS 30 ML LIQUID.PKT PO SCH (09:32)
[2022-03-14 10:13] LABS: BASO % 0.9 % (0-2.0); EOS % 3.4 % (0-4.5); HEMATOCRIT 28.1 % (32.4-45.2); HEMOGLOBIN 9.3 GM/dL (10.7-15.3); LYMPH % 10.5 % (8-40); MCH 31.4 pg (25.7-33.7); MCHC 33.2 g/dl (32.0-36.0); MEAN CELL VOLUME 94.6 fl (80-96); MEAN PLT VOLUME 6.5 fl (7.5-11.1); MONO % 8.5 % (3.8-10.2); NEUT % 76.7 % (42.8-82.8); PLATELET COUNT 408 10^3/uL (134-434); RBC 2.97 M/mm3 (3.60-5.2); RDW 13.7 % (11.6-15.6); WHITE BLOOD COUNT 5.5 K/mm3 (4.0-10.0)
[2022-03-14] MEDS: ENOXAPARIN NA (PORCINE) 80 MG/0.8 ML DISP.SYRIN SQ SCH ×2 (10:29→21:33)
[2022-03-14] MEDS: ASCORBIC ACID 250 MG TABLET (FP) PO SCH (10:29)
[2022-03-14] MEDS: PANTOPRAZOLE 40 MG TABLET PO SCH (10:29)
[2022-03-14] MEDS: SERTRALINE HCL 25 MG TABLET (FP) PO SCH (10:29)
[2022-03-14] MEDS: MULTIVITAMINS THER W-MINERALS COMBO TABLET (FP) PO SCH (10:29)
[2022-03-14] MEDS: FUROSEMIDE 40 MG TABLET (FP) PO SCH (10:29)
[2022-03-14] MEDS: LACTOBACILLUS ACIDOPHILUS 1 TABLET PO SCH ×2 (10:29→21:33)
[2022-03-14] MEDS: ZINC SULFATE 220 MG CAPSULE (FP) PO SCH (10:29)
[2022-03-14] MEDS: MUPIROCIN CA 2% TOPICAL CREAM 15 GM TUBE TP SCH ×2 (10:30→21:33)
[2022-03-14 11:10] LABS: ALBUMIN 2.1 g/dl (3.4-5.0); BILIRUBIN,TOTAL 0.3 mg/dL (0.2-1); BLOOD UREA NITROGEN 14.8 mg/dL (7-18); CALCIUM 12.3 mg/dL (8.5-10.1); CREATININE 0.5 mg/dL (0.55-1.3); TOT PROT 5.9 g/dl (6.4-8.2)
[2022-03-14] MEDS: ACETAMINOPHEN 500 MG TABLET (FP) PO PRN (14:32)
[2022-03-14] MEDS: VANCOMYCIN/WATER FOR INJ (PEG) 1,000 MG/200 ML BAG IVPB SCH (14:32)
[2022-03-14] MEDS: ATORVASTATIN CA 10 MG TABLET (FP) PO SCH (21:33)
[2022-03-15] MEDS: GABAPENTIN 300 MG CAPSULE PO SCH ×3 (05:55→21:31)
[2022-03-15] MEDS: AMINO ACIDS/PROTEIN HYDROLYS 30 ML LIQUID.PKT PO SCH (08:22)
[2022-03-15] MEDS: FUROSEMIDE 40 MG TABLET (FP) PO SCH (09:22)
[2022-03-15] MEDS: SERTRALINE HCL 25 MG TABLET (FP) PO SCH (09:22)
[2022-03-15] MEDS: ZINC SULFATE 220 MG CAPSULE (FP) PO SCH (09:22)
[2022-03-15] MEDS: LACTOBACILLUS ACIDOPHILUS 1 TABLET PO SCH ×2 (09:22→21:32)
[2022-03-15] MEDS: ASCORBIC ACID 250 MG TABLET (FP) PO SCH (09:22)
[2022-03-15] MEDS: PANTOPRAZOLE 40 MG TABLET PO SCH (09:22)
[2022-03-15] MEDS: MULTIVITAMINS THER W-MINERALS COMBO TABLET (FP) PO SCH (09:22)
[2022-03-15] MEDS: ENOXAPARIN NA (PORCINE) 80 MG/0.8 ML DISP.SYRIN SQ SCH ×2 (09:22→21:32)
[2022-03-15] MEDS: MUPIROCIN CA 2% TOPICAL CREAM 15 GM TUBE TP SCH ×2 (09:23→21:32)
[2022-03-15] MEDS: ACETAMINOPHEN 500 MG TABLET (FP) PO PRN (09:23)
[2022-03-15] MEDS: VANCOMYCIN/WATER FOR INJ (PEG) 1,000 MG/200 ML BAG IVPB SCH (13:48)
[2022-03-15] MEDS: MAG HYDROX/ALH/SMC/DPHA/LIDO 240 ML MOUTHWASH MM SCH (17:07)
[2022-03-15] MEDS: ATORVASTATIN CA 10 MG TABLET (FP) PO SCH (21:31)
[2022-03-16] MEDS: MAG HYDROX/ALH/SMC/DPHA/LIDO 240 ML MOUTHWASH MM SCH ×4 (00:30→18:02)
[2022-03-16] MEDS: GABAPENTIN 300 MG CAPSULE PO SCH ×3 (06:27→21:09)
[2022-03-16] MEDS: ZINC SULFATE 220 MG CAPSULE (FP) PO SCH (09:14)
[2022-03-16] MEDS: LACTOBACILLUS ACIDOPHILUS 1 TABLET PO SCH ×2 (09:14→21:09)
[2022-03-16] MEDS: AMINO ACIDS/PROTEIN HYDROLYS 30 ML LIQUID.PKT PO SCH (09:14)
[2022-03-16] MEDS: FUROSEMIDE 40 MG TABLET (FP) PO SCH (09:14)
[2022-03-16] MEDS: PANTOPRAZOLE 40 MG TABLET PO SCH (09:14)
[2022-03-16] MEDS: ENOXAPARIN NA (PORCINE) 80 MG/0.8 ML DISP.SYRIN SQ SCH ×2 (09:14→21:12)
[2022-03-16] MEDS: SERTRALINE HCL 25 MG TABLET (FP) PO SCH (09:14)
[2022-03-16] MEDS: MUPIROCIN CA 2% TOPICAL CREAM 15 GM TUBE TP SCH ×2 (09:15→21:11)
[2022-03-16] MEDS: ACETAMINOPHEN 500 MG TABLET (FP) PO PRN (09:15)
[2022-03-16] MEDS: ASCORBIC ACID 250 MG TABLET (FP) PO SCH (09:15)
[2022-03-16] MEDS: MULTIVITAMINS THER W-MINERALS COMBO TABLET (FP) PO SCH (09:15)
[2022-03-16 12:10] LABS: HEMATOCRIT 27.7 % (32.4-45.2); HEMOGLOBIN 9.4 GM/dL (10.7-15.3); MCH 32.1 pg (25.7-33.7); MEAN CELL VOLUME 94.5 fl (80-96); MEAN PLT VOLUME 6.9 fl (7.5-11.1); PLATELET COUNT 381 10^3/uL (134-434); RBC 2.93 M/mm3 (3.60-5.2); RDW 13.9 % (11.6-15.6)
[2022-03-16 12:41] LABS: ALBUMIN 2.2 g/dl (3.4-5.0); BLOOD UREA NITROGEN 22.8 mg/dL (7-18); CALCIUM 11.8 mg/dL (8.5-10.1)
[2022-03-16 12:42] LABS: MAGNESIUM 2.3 mg/dL (1.8-2.4)
[2022-03-16 12:44] LABS: CREATININE 0.6 mg/dL (0.55-1.3)
[2022-03-16 12:46] LABS: BILIRUBIN,TOTAL 0.2 mg/dL (0.2-1)
[2022-03-16 13:55] LABS: EPI CELLS 12 /uL (0-25.1); HYALINE CASTS 0 /uL (0-3.1); PH,URINE 6.5 (5.0-8.0); URINE APPEARANCE CLEAR; URINE BACTERIA 11 /uL (0-1359); URINE BILIRUBIN NEGATIVE (NEGATIVE); URINE COLOR YELLOW; URINE GLUCOSE (UA) NEGATIVE (NEGATIVE); URINE KETONE NEGATIVE (NEGATIVE); URINE LEUK ESTERASE 1+ (NEGATIVE); URINE NITRITE NEGATIVE (NEGATIVE); URINE PROTEIN NEGATIVE (NEGATIVE); URINE RBC 15 /uL (0-23.9); URINE UROBILINOGEN 0.2 mg/dL (0.2-1.0); URINE WBC 23 /uL (0-25.8)
[2022-03-16 14:09] LABS: URINE CRYSTALS CA OXALATE FEW /hpf
[2022-03-16] MEDS: VANCOMYCIN/WATER FOR INJ (PEG) 1,000 MG/200 ML BAG IVPB SCH (17:14)
[2022-03-16] MEDS: ATORVASTATIN CA 10 MG TABLET (FP) PO SCH (21:09)
[2022-03-16] MEDS: RIFAXIMIN 550 MG TABLET PO SCH (21:09)
[2022-03-17] MEDS: MAG HYDROX/ALH/SMC/DPHA/LIDO 240 ML MOUTHWASH MM SCH ×4 (01:29→17:31)
[2022-03-17] MEDS: GABAPENTIN 300 MG CAPSULE PO SCH ×3 (06:47→22:46)
[2022-03-17] MEDS: AMINO ACIDS/PROTEIN HYDROLYS 30 ML LIQUID.PKT PO SCH (08:24)
[2022-03-17] MEDS: PANTOPRAZOLE 40 MG TABLET PO SCH (09:46)
[2022-03-17] MEDS: ENOXAPARIN NA (PORCINE) 80 MG/0.8 ML DISP.SYRIN SQ SCH ×2 (09:46→21:56)
[2022-03-17] MEDS: FUROSEMIDE 40 MG TABLET (FP) PO SCH (09:46)
[2022-03-17] MEDS: LACTOBACILLUS ACIDOPHILUS 1 TABLET PO SCH ×2 (09:46→22:46)
[2022-03-17] MEDS: RIFAXIMIN 550 MG TABLET PO SCH ×2 (09:46→22:46)
[2022-03-17] MEDS: SERTRALINE HCL 25 MG TABLET (FP) PO SCH (09:46)
[2022-03-17] MEDS: MULTIVITAMINS THER W-MINERALS COMBO TABLET (FP) PO SCH (09:46)
[2022-03-17] MEDS: ASCORBIC ACID 250 MG TABLET (FP) PO SCH (09:46)
[2022-03-17] MEDS: ZINC SULFATE 220 MG CAPSULE (FP) PO SCH (09:46)
[2022-03-17] MEDS: MUPIROCIN CA 2% TOPICAL CREAM 15 GM TUBE TP SCH ×2 (10:00→22:46)
[2022-03-17] MEDS: VANCOMYCIN/WATER FOR INJ (PEG) 1,000 MG/200 ML BAG IVPB SCH ×2 (13:56→14:02)
[2022-03-17] MEDS: valACYclovir HCL 500 MG TABLET (FP) PO SCH (22:46)
[2022-03-17] MEDS: ATORVASTATIN CA 10 MG TABLET (FP) PO SCH (22:46)
[2022-03-17] MEDS: ACETAMINOPHEN 500 MG TABLET (FP) PO PRN (22:50)
[2022-03-17] MEDS: CALAMINE 8% TOPICAL LOTION 177 ML BOTTLE TP PRN (22:57)
[2022-03-18] MEDS: MAG HYDROX/ALH/SMC/DPHA/LIDO 240 ML MOUTHWASH MM SCH ×5 (01:10→23:33)
[2022-03-18] MEDS: GABAPENTIN 300 MG CAPSULE PO SCH ×3 (06:58→21:30)
[2022-03-18] MEDS: valACYclovir HCL 500 MG TABLET (FP) PO SCH ×2 (09:01→21:30)
[2022-03-18] MEDS: ZINC SULFATE 220 MG CAPSULE (FP) PO SCH (09:01)
[2022-03-18] MEDS: SERTRALINE HCL 25 MG TABLET (FP) PO SCH (09:01)
[2022-03-18] MEDS: MULTIVITAMINS THER W-MINERALS COMBO TABLET (FP) PO SCH (09:01)
[2022-03-18] MEDS: ASCORBIC ACID 250 MG TABLET (FP) PO SCH (09:01)
[2022-03-18] MEDS: ACETAMINOPHEN 500 MG TABLET (FP) PO PRN (09:01)
[2022-03-18] MEDS: LACTOBACILLUS ACIDOPHILUS 1 TABLET PO SCH ×2 (09:01→21:29)
[2022-03-18] MEDS: AMINO ACIDS/PROTEIN HYDROLYS 30 ML LIQUID.PKT PO SCH (09:01)
[2022-03-18] MEDS: PANTOPRAZOLE 40 MG TABLET PO SCH (09:01)
[2022-03-18] MEDS: RIFAXIMIN 550 MG TABLET PO SCH ×2 (09:01→21:30)
[2022-03-18] MEDS: FUROSEMIDE 40 MG TABLET (FP) PO SCH (09:01)
[2022-03-18] MEDS: MUPIROCIN CA 2% TOPICAL CREAM 15 GM TUBE TP SCH ×2 (09:02→21:46)
[2022-03-18] MEDS: ENOXAPARIN NA (PORCINE) 80 MG/0.8 ML DISP.SYRIN SQ SCH ×2 (09:03→21:29)
[2022-03-18] MEDS: VANCOMYCIN/WATER FOR INJ (PEG) 750 MG/150 ML BAG IVPB SCH (13:08)
[2022-03-18] MEDS: VANCOMYCIN/WATER FOR INJ (PEG) 1,000 MG/200 ML BAG IVPB SCH (14:03)
[2022-03-18] MEDS: ATORVASTATIN CA 10 MG TABLET (FP) PO SCH (21:29)
[2022-03-19] MEDS: GABAPENTIN 300 MG CAPSULE PO SCH ×3 (06:08→21:15)
[2022-03-19] MEDS: MAG HYDROX/ALH/SMC/DPHA/LIDO 240 ML MOUTHWASH MM SCH ×3 (06:08→17:39)
[2022-03-19] MEDS: valACYclovir HCL 500 MG TABLET (FP) PO SCH ×2 (09:13→21:16)
[2022-03-19] MEDS: AMINO ACIDS/PROTEIN HYDROLYS 30 ML LIQUID.PKT PO SCH (09:13)
[2022-03-19] MEDS: ASCORBIC ACID 250 MG TABLET (FP) PO SCH (09:13)
[2022-03-19] MEDS: RIFAXIMIN 550 MG TABLET PO SCH ×2 (09:13→21:15)
[2022-03-19] MEDS: ACETAMINOPHEN 500 MG TABLET (FP) PO PRN ×2 (09:13→21:24)
[2022-03-19] MEDS: SERTRALINE HCL 25 MG TABLET (FP) PO SCH (09:13)
[2022-03-19] MEDS: LACTOBACILLUS ACIDOPHILUS 1 TABLET PO SCH ×2 (09:13→21:15)
[2022-03-19] MEDS: ENOXAPARIN NA (PORCINE) 80 MG/0.8 ML DISP.SYRIN SQ SCH ×2 (09:14→21:16)
[2022-03-19] MEDS: PANTOPRAZOLE 40 MG TABLET PO SCH (09:14)
[2022-03-19] MEDS: MUPIROCIN CA 2% TOPICAL CREAM 15 GM TUBE TP SCH ×2 (09:14→21:15)
[2022-03-19] MEDS: FUROSEMIDE 40 MG TABLET (FP) PO SCH (09:14)
[2022-03-19] MEDS: MULTIVITAMINS THER W-MINERALS COMBO TABLET (FP) PO SCH (09:14)
[2022-03-19] MEDS: ZINC SULFATE 220 MG CAPSULE (FP) PO SCH (09:14)
[2022-03-19 09:30] LABS: HEMATOCRIT 28.3 % (32.4-45.2); HEMOGLOBIN 9.4 GM/dL (10.7-15.3); MCH 31.6 pg (25.7-33.7); MCHC 33.4 g/dl (32.0-36.0); MEAN CELL VOLUME 94.5 fl (80-96); PLATELET COUNT 321 10^3/uL (134-434); RBC 2.99 M/mm3 (3.60-5.2); RDW 14.4 % (11.6-15.6); WHITE BLOOD COUNT 4.2 K/mm3 (4.0-10.0)
[2022-03-19 09:58] LABS: ALBUMIN 2.4 g/dl (3.4-5.0); CALCIUM 10.9 mg/dL (8.5-10.1)
[2022-03-19 10:01] LABS: BLOOD UREA NITROGEN 22.7 mg/dL (7-18)
[2022-03-19 10:02] LABS: CREATININE 0.6 mg/dL (0.55-1.3)
[2022-03-19 10:04] LABS: BILIRUBIN,TOTAL 0.2 mg/dL (0.2-1)
[2022-03-19] MEDS: VANCOMYCIN/WATER FOR INJ (PEG) 750 MG/150 ML BAG IVPB SCH (12:24)
[2022-03-19] MEDS: VANCOMYCIN/WATER FOR INJ (PEG) 1,000 MG/200 ML BAG IVPB SCH (14:26)
[2022-03-19] MEDS: ATORVASTATIN CA 10 MG TABLET (FP) PO SCH (21:15)
[2022-03-20] MEDS: MAG HYDROX/ALH/SMC/DPHA/LIDO 240 ML MOUTHWASH MM SCH ×4 (00:12→17:02)
[2022-03-20] MEDS: GABAPENTIN 300 MG CAPSULE PO SCH ×3 (05:41→21:17)
[2022-03-20] MEDS: AMINO ACIDS/PROTEIN HYDROLYS 30 ML LIQUID.PKT PO SCH (08:44)
[2022-03-20] MEDS: FUROSEMIDE 40 MG TABLET (FP) PO SCH (10:10)
[2022-03-20] MEDS: SERTRALINE HCL 25 MG TABLET (FP) PO SCH (10:10)
[2022-03-20] MEDS: ZINC SULFATE 220 MG CAPSULE (FP) PO SCH (10:10)
[2022-03-20] MEDS: ASCORBIC ACID 250 MG TABLET (FP) PO SCH (10:10)
[2022-03-20] MEDS: PANTOPRAZOLE 40 MG TABLET PO SCH (10:10)
[2022-03-20] MEDS: LACTOBACILLUS ACIDOPHILUS 1 TABLET PO SCH ×2 (10:10→21:17)
[2022-03-20] MEDS: valACYclovir HCL 500 MG TABLET (FP) PO SCH ×2 (10:11→21:17)
[2022-03-20] MEDS: ENOXAPARIN NA (PORCINE) 80 MG/0.8 ML DISP.SYRIN SQ SCH ×2 (10:11→21:17)
[2022-03-20] MEDS: MULTIVITAMINS THER W-MINERALS COMBO TABLET (FP) PO SCH (10:11)
[2022-03-20] MEDS: MUPIROCIN CA 2% TOPICAL CREAM 15 GM TUBE TP SCH ×2 (10:11→21:32)
[2022-03-20] MEDS: RIFAXIMIN 550 MG TABLET PO SCH ×2 (10:11→21:17)
[2022-03-20] MEDS: VANCOMYCIN/WATER FOR INJ (PEG) 750 MG/150 ML BAG IVPB SCH (12:02)
[2022-03-20] MEDS: ATORVASTATIN CA 10 MG TABLET (FP) PO SCH (21:17)
[2022-03-21] MEDS: MAG HYDROX/ALH/SMC/DPHA/LIDO 240 ML MOUTHWASH MM SCH ×4 (00:03→17:45)
[2022-03-21] MEDS: GABAPENTIN 300 MG CAPSULE PO SCH ×3 (06:03→21:25)
[2022-03-21] MEDS: AMINO ACIDS/PROTEIN HYDROLYS 30 ML LIQUID.PKT PO SCH (08:41)
[2022-03-21] MEDS: PANTOPRAZOLE 40 MG TABLET PO SCH (09:33)
[2022-03-21] MEDS: SERTRALINE HCL 25 MG TABLET (FP) PO SCH (09:33)
[2022-03-21] MEDS: FUROSEMIDE 40 MG TABLET (FP) PO SCH (09:33)
[2022-03-21] MEDS: RIFAXIMIN 550 MG TABLET PO SCH ×2 (09:33→21:26)
[2022-03-21] MEDS: MULTIVITAMINS THER W-MINERALS COMBO TABLET (FP) PO SCH (09:33)
[2022-03-21] MEDS: ZINC SULFATE 220 MG CAPSULE (FP) PO SCH (09:33)
[2022-03-21] MEDS: ENOXAPARIN NA (PORCINE) 80 MG/0.8 ML DISP.SYRIN SQ SCH ×2 (09:33→21:25)
[2022-03-21] MEDS: ASCORBIC ACID 250 MG TABLET (FP) PO SCH (09:33)
[2022-03-21] MEDS: valACYclovir HCL 500 MG TABLET (FP) PO SCH ×2 (09:33→21:26)
[2022-03-21] MEDS: LACTOBACILLUS ACIDOPHILUS 1 TABLET PO SCH ×2 (09:33→21:26)
[2022-03-21] MEDS: MUPIROCIN CA 2% TOPICAL CREAM 15 GM TUBE TP SCH ×2 (09:34→21:26)
[2022-03-21 10:07] LABS: HEMATOCRIT 27.8 % (32.4-45.2); HEMOGLOBIN 9.3 GM/dL (10.7-15.3); MCHC 33.5 g/dl (32.0-36.0); MEAN CELL VOLUME 95.3 fl (80-96); MEAN PLT VOLUME 7.6 fl (7.5-11.1); PLATELET COUNT 302 10^3/uL (134-434); RBC 2.92 M/mm3 (3.60-5.2); RDW 14.8 % (11.6-15.6); WHITE BLOOD COUNT 4.1 K/mm3 (4.0-10.0)
[2022-03-21 10:33] LABS: BLOOD UREA NITROGEN 25.2 mg/dL (7-18); CALCIUM 10.6 mg/dL (8.5-10.1)
[2022-03-21 10:37] LABS: CREATININE 0.6 mg/dL (0.55-1.3)
[2022-03-21] MEDS: VANCOMYCIN/WATER FOR INJ (PEG) 750 MG/150 ML BAG IVPB SCH (12:02)
[2022-03-21] MEDS: ATORVASTATIN CA 10 MG TABLET (FP) PO SCH (21:26)
[2022-03-22] MEDS: MAG HYDROX/ALH/SMC/DPHA/LIDO 240 ML MOUTHWASH MM SCH ×4 (00:04→18:02)
[2022-03-22] MEDS: GABAPENTIN 300 MG CAPSULE PO SCH ×3 (05:54→21:20)
[2022-03-22] MEDS: LACTOBACILLUS ACIDOPHILUS 1 TABLET PO SCH ×2 (09:24→21:20)
[2022-03-22] MEDS: valACYclovir HCL 500 MG TABLET (FP) PO SCH ×2 (09:24→21:20)
[2022-03-22] MEDS: ASCORBIC ACID 250 MG TABLET (FP) PO SCH (09:24)
[2022-03-22] MEDS: RIFAXIMIN 550 MG TABLET PO SCH ×2 (09:24→21:20)
[2022-03-22] MEDS: MULTIVITAMINS THER W-MINERALS COMBO TABLET (FP) PO SCH (09:24)
[2022-03-22] MEDS: FUROSEMIDE 40 MG TABLET (FP) PO SCH (09:24)
[2022-03-22] MEDS: ENOXAPARIN NA (PORCINE) 80 MG/0.8 ML DISP.SYRIN SQ SCH ×2 (09:25→21:20)
[2022-03-22] MEDS: MUPIROCIN CA 2% TOPICAL CREAM 15 GM TUBE TP SCH ×2 (09:25→21:20)
[2022-03-22] MEDS: PANTOPRAZOLE 40 MG TABLET PO SCH (09:25)
[2022-03-22] MEDS: AMINO ACIDS/PROTEIN HYDROLYS 30 ML LIQUID.PKT PO SCH (09:25)
[2022-03-22] MEDS: ZINC SULFATE 220 MG CAPSULE (FP) PO SCH (09:26)
[2022-03-22] MEDS: SERTRALINE HCL 25 MG TABLET (FP) PO SCH (09:27)
[2022-03-22] MEDS: VANCOMYCIN/WATER FOR INJ (PEG) 750 MG/150 ML BAG IVPB SCH (11:29)
[2022-03-22] MEDS: ATORVASTATIN CA 10 MG TABLET (FP) PO SCH (21:20)
[2022-03-23] MEDS: MAG HYDROX/ALH/SMC/DPHA/LIDO 240 ML MOUTHWASH MM SCH ×4 (00:50→17:22)
[2022-03-23] MEDS: GABAPENTIN 300 MG CAPSULE PO SCH ×3 (06:09→21:01)
[2022-03-23] MEDS: AMINO ACIDS/PROTEIN HYDROLYS 30 ML LIQUID.PKT PO SCH (08:44)
[2022-03-23] MEDS: SERTRALINE HCL 25 MG TABLET (FP) PO SCH (09:45)
[2022-03-23] MEDS: MULTIVITAMINS THER W-MINERALS COMBO TABLET (FP) PO SCH (09:45)
[2022-03-23] MEDS: FUROSEMIDE 40 MG TABLET (FP) PO SCH (09:45)
[2022-03-23] MEDS: valACYclovir HCL 500 MG TABLET (FP) PO SCH ×2 (09:45→21:01)
[2022-03-23] MEDS: ZINC SULFATE 220 MG CAPSULE (FP) PO SCH (09:45)
[2022-03-23] MEDS: PANTOPRAZOLE 40 MG TABLET PO SCH (09:45)
[2022-03-23] MEDS: ASCORBIC ACID 250 MG TABLET (FP) PO SCH (09:45)
[2022-03-23] MEDS: LACTOBACILLUS ACIDOPHILUS 1 TABLET PO SCH ×2 (09:45→21:01)
[2022-03-23] MEDS: RIFAXIMIN 550 MG TABLET PO SCH ×2 (09:45→21:01)
[2022-03-23] MEDS: MUPIROCIN CA 2% TOPICAL CREAM 15 GM TUBE TP SCH ×2 (09:46→21:01)
[2022-03-23] MEDS: VANCOMYCIN/WATER FOR INJ (PEG) 750 MG/150 ML BAG IVPB SCH (12:32)
[2022-03-23] MEDS: CALAMINE 8% TOPICAL LOTION 177 ML BOTTLE TP PRN (14:46)
[2022-03-23] MEDS: ATORVASTATIN CA 10 MG TABLET (FP) PO SCH (21:01)
[2022-03-24] MEDS: MAG HYDROX/ALH/SMC/DPHA/LIDO 240 ML MOUTHWASH MM SCH ×4 (00:30→17:09)
[2022-03-24] MEDS: GABAPENTIN 300 MG CAPSULE PO SCH ×3 (06:17→21:43)
[2022-03-24] MEDS: AMINO ACIDS/PROTEIN HYDROLYS 30 ML LIQUID.PKT PO SCH (08:27)
[2022-03-24] MEDS: RIFAXIMIN 550 MG TABLET PO SCH ×2 (09:06→21:43)
[2022-03-24] MEDS: MULTIVITAMINS THER W-MINERALS COMBO TABLET (FP) PO SCH (09:07)
[2022-03-24] MEDS: valACYclovir HCL 500 MG TABLET (FP) PO SCH ×2 (09:07→21:43)
[2022-03-24] MEDS: PANTOPRAZOLE 40 MG TABLET PO SCH (09:07)
[2022-03-24] MEDS: FUROSEMIDE 40 MG TABLET (FP) PO SCH (09:07)
[2022-03-24] MEDS: ASCORBIC ACID 250 MG TABLET (FP) PO SCH (09:07)
[2022-03-24] MEDS: ZINC SULFATE 220 MG CAPSULE (FP) PO SCH (09:07)
[2022-03-24] MEDS: LACTOBACILLUS ACIDOPHILUS 1 TABLET PO SCH ×2 (09:07→21:43)
[2022-03-24] MEDS: SERTRALINE HCL 25 MG TABLET (FP) PO SCH (09:07)
[2022-03-24] MEDS: MUPIROCIN CA 2% TOPICAL CREAM 15 GM TUBE TP SCH ×2 (09:13→21:43)
[2022-03-24 10:09] LABS: HEMATOCRIT 30.8 % (32.4-45.2); HEMOGLOBIN 10.2 GM/dL (10.7-15.3); MCH 32.1 pg (25.7-33.7); MEAN CELL VOLUME 97.3 fl (80-96); MEAN PLT VOLUME 7.5 fl (7.5-11.1); PLATELET COUNT 297 10^3/uL (134-434); RBC 3.17 M/mm3 (3.60-5.2); RDW 15.9 % (11.6-15.6); WHITE BLOOD COUNT 3.4 K/mm3 (4.0-10.0)
[2022-03-24 10:41] LABS: ALBUMIN 2.6 g/dl (3.4-5.0); BLOOD UREA NITROGEN 23.8 mg/dL (7-18); CALCIUM 10.7 mg/dL (8.5-10.1)
[2022-03-24 10:44] LABS: CREATININE 0.7 mg/dL (0.55-1.3)
[2022-03-24 10:46] LABS: BILIRUBIN,TOTAL 0.3 mg/dL (0.2-1); TOT PROT 6.3 g/dl (6.4-8.2)
[2022-03-24 11:04] LABS: ERYTHROCYTE SEDIMENTATION RATE 43 mm/hr (0-30)
[2022-03-24] MEDS: VANCOMYCIN/WATER FOR INJ (PEG) 750 MG/150 ML BAG IVPB SCH (12:22)
[2022-03-24] MEDS: ATORVASTATIN CA 10 MG TABLET (FP) PO SCH (21:43)
[2022-03-25] MEDS: MAG HYDROX/ALH/SMC/DPHA/LIDO 240 ML MOUTHWASH MM SCH ×4 (00:03→17:27)
[2022-03-25] MEDS: GABAPENTIN 300 MG CAPSULE PO SCH ×3 (06:24→21:15)
[2022-03-25] MEDS: AMINO ACIDS/PROTEIN HYDROLYS 30 ML LIQUID.PKT PO SCH (08:18)
[2022-03-25] MEDS: ZINC SULFATE 220 MG CAPSULE (FP) PO SCH (09:45)
[2022-03-25] MEDS: MULTIVITAMINS THER W-MINERALS COMBO TABLET (FP) PO SCH (09:45)
[2022-03-25] MEDS: RIFAXIMIN 550 MG TABLET PO SCH ×2 (09:45→21:16)
[2022-03-25] MEDS: PANTOPRAZOLE 40 MG TABLET PO SCH (09:45)
[2022-03-25] MEDS: valACYclovir HCL 500 MG TABLET (FP) PO SCH ×2 (09:45→21:15)
[2022-03-25] MEDS: LACTOBACILLUS ACIDOPHILUS 1 TABLET PO SCH ×2 (09:45→21:16)
[2022-03-25] MEDS: SERTRALINE HCL 25 MG TABLET (FP) PO SCH (09:45)
[2022-03-25] MEDS: ASCORBIC ACID 250 MG TABLET (FP) PO SCH (09:45)
[2022-03-25] MEDS: MUPIROCIN CA 2% TOPICAL CREAM 15 GM TUBE TP SCH ×2 (09:46→21:16)
[2022-03-25] MEDS: FUROSEMIDE 40 MG TABLET (FP) PO SCH (10:14)
[2022-03-25 11:41] LABS: HEMATOCRIT 30.6 % (32.4-45.2); HEMOGLOBIN 10.4 GM/dL (10.7-15.3); MCH 32.7 pg (25.7-33.7); MEAN CELL VOLUME 96.1 fl (80-96); MEAN PLT VOLUME 7.3 fl (7.5-11.1); PLATELET COUNT 338 10^3/uL (134-434); RBC 3.18 M/mm3 (3.60-5.2); RDW 15.9 % (11.6-15.6); WHITE BLOOD COUNT 4.4 K/mm3 (4.0-10.0)
[2022-03-25 12:20] LABS: ALBUMIN 2.7 g/dl (3.4-5.0)
[2022-03-25 12:21] LABS: CALCIUM 10.9 mg/dL (8.5-10.1)
[2022-03-25 12:22] LABS: BLOOD UREA NITROGEN 20.8 mg/dL (7-18)
[2022-03-25 12:24] LABS: CREATININE 0.6 mg/dL (0.55-1.3)
[2022-03-25 12:26] LABS: BILIRUBIN,TOTAL 0.6 mg/dL (0.2-1); TOT PROT 6.5 g/dl (6.4-8.2)
[2022-03-25] MEDS: CALAMINE 8% TOPICAL LOTION 177 ML BOTTLE TP PRN (14:16)
[2022-03-25] MEDS: ATORVASTATIN CA 10 MG TABLET (FP) PO SCH (21:16)
[2022-03-26] MEDS: MAG HYDROX/ALH/SMC/DPHA/LIDO 240 ML MOUTHWASH MM SCH ×4 (00:29→16:59)
[2022-03-26] MEDS: GABAPENTIN 300 MG CAPSULE PO SCH ×3 (06:16→21:43)
[2022-03-26] MEDS: AMINO ACIDS/PROTEIN HYDROLYS 30 ML LIQUID.PKT PO SCH (08:14)
[2022-03-26] MEDS: RIFAXIMIN 550 MG TABLET PO SCH ×2 (09:31→21:43)
[2022-03-26] MEDS: SERTRALINE HCL 25 MG TABLET (FP) PO SCH (09:31)
[2022-03-26] MEDS: ZINC SULFATE 220 MG CAPSULE (FP) PO SCH (09:31)
[2022-03-26] MEDS: FUROSEMIDE 40 MG TABLET (FP) PO SCH (09:32)
[2022-03-26] MEDS: MULTIVITAMINS THER W-MINERALS COMBO TABLET (FP) PO SCH (09:32)
[2022-03-26] MEDS: ASCORBIC ACID 250 MG TABLET (FP) PO SCH (09:32)
[2022-03-26] MEDS: PANTOPRAZOLE 40 MG TABLET PO SCH (09:32)
[2022-03-26] MEDS: LACTOBACILLUS ACIDOPHILUS 1 TABLET PO SCH ×2 (09:32→21:43)
[2022-03-26] MEDS: valACYclovir HCL 500 MG TABLET (FP) PO SCH ×2 (09:32→21:43)
[2022-03-26] MEDS: MUPIROCIN CA 2% TOPICAL CREAM 15 GM TUBE TP SCH ×2 (10:07→21:43)
[2022-03-26] MEDS: CALAMINE 8% TOPICAL LOTION 177 ML BOTTLE TP PRN (16:59)
[2022-03-26] MEDS: ATORVASTATIN CA 10 MG TABLET (FP) PO SCH (21:43)
[2022-03-27] MEDS: MAG HYDROX/ALH/SMC/DPHA/LIDO 240 ML MOUTHWASH MM SCH ×5 (00:12→23:57)
[2022-03-27] MEDS: GABAPENTIN 300 MG CAPSULE PO SCH ×3 (06:02→21:19)
[2022-03-27] MEDS: AMINO ACIDS/PROTEIN HYDROLYS 30 ML LIQUID.PKT PO SCH (08:42)
[2022-03-27] MEDS: RIFAXIMIN 550 MG TABLET PO SCH ×2 (09:33→21:19)
[2022-03-27] MEDS: LACTOBACILLUS ACIDOPHILUS 1 TABLET PO SCH ×2 (09:33→21:19)
[2022-03-27] MEDS: PANTOPRAZOLE 40 MG TABLET PO SCH (09:33)
[2022-03-27] MEDS: ZINC SULFATE 220 MG CAPSULE (FP) PO SCH (09:33)
[2022-03-27] MEDS: FUROSEMIDE 40 MG TABLET (FP) PO SCH (09:33)
[2022-03-27] MEDS: ASCORBIC ACID 250 MG TABLET (FP) PO SCH (09:33)
[2022-03-27] MEDS: SERTRALINE HCL 25 MG TABLET (FP) PO SCH (09:33)
[2022-03-27] MEDS: MULTIVITAMINS THER W-MINERALS COMBO TABLET (FP) PO SCH (09:33)
[2022-03-27] MEDS: MUPIROCIN CA 2% TOPICAL CREAM 15 GM TUBE TP SCH ×2 (09:33→21:19)
[2022-03-27] MEDS: valACYclovir HCL 500 MG TABLET (FP) PO SCH ×2 (09:33→21:19)
[2022-03-27] MEDS: VANCOMYCIN/WATER FOR INJ (PEG) 750 MG/150 ML BAG IVPB SCH (17:33)
[2022-03-27] MEDS: ATORVASTATIN CA 10 MG TABLET (FP) PO SCH (21:19)
[2022-03-28] MEDS: GABAPENTIN 300 MG CAPSULE PO SCH ×3 (06:22→21:23)
[2022-03-28] MEDS: MAG HYDROX/ALH/SMC/DPHA/LIDO 240 ML MOUTHWASH MM SCH ×3 (06:22→18:08)
[2022-03-28] MEDS: AMINO ACIDS/PROTEIN HYDROLYS 30 ML LIQUID.PKT PO SCH (09:00)
[2022-03-28] MEDS: FUROSEMIDE 40 MG TABLET (FP) PO SCH (10:54)
[2022-03-28] MEDS: SERTRALINE HCL 25 MG TABLET (FP) PO SCH (10:54)
[2022-03-28] MEDS: valACYclovir HCL 500 MG TABLET (FP) PO SCH ×2 (10:54→21:23)
[2022-03-28] MEDS: RIFAXIMIN 550 MG TABLET PO SCH ×2 (10:54→21:23)
[2022-03-28] MEDS: ASCORBIC ACID 250 MG TABLET (FP) PO SCH (10:54)
[2022-03-28] MEDS: MULTIVITAMINS THER W-MINERALS COMBO TABLET (FP) PO SCH (10:54)
[2022-03-28] MEDS: PANTOPRAZOLE 40 MG TABLET PO SCH (10:54)
[2022-03-28] MEDS: LACTOBACILLUS ACIDOPHILUS 1 TABLET PO SCH ×2 (10:54→21:23)
[2022-03-28] MEDS: ZINC SULFATE 220 MG CAPSULE (FP) PO SCH (10:54)
[2022-03-28] MEDS: MUPIROCIN CA 2% TOPICAL CREAM 15 GM TUBE TP SCH ×2 (10:55→21:23)
[2022-03-28 11:00] LABS: BASO % 0.9 % (0-2.0); EOS % 6.7 % (0-4.5); HEMATOCRIT 32.6 % (32.4-45.2); HEMOGLOBIN 10.6 GM/dL (10.7-15.3); LYMPH % 23.1 % (8-40); MCH 31.5 pg (25.7-33.7); MCHC 32.6 g/dl (32.0-36.0); MEAN CELL VOLUME 96.6 fl (80-96); MEAN PLT VOLUME 7.3 fl (7.5-11.1); MONO % 10.2 % (3.8-10.2); NEUT % 59.1 % (42.8-82.8); PLATELET COUNT 356 10^3/uL (134-434); RBC 3.38 M/mm3 (3.60-5.2); RDW 16.7 % (11.6-15.6); WHITE BLOOD COUNT 5.1 K/mm3 (4.0-10.0)
[2022-03-28 11:29] LABS: CALCIUM 10.4 mg/dL (8.5-10.1)
[2022-03-28 11:30] LABS: ALBUMIN 2.7 g/dl (3.4-5.0); BLOOD UREA NITROGEN 17.3 mg/dL (7-18)
[2022-03-28 11:31] LABS: CREATININE 0.6 mg/dL (0.55-1.3)
[2022-03-28 11:33] LABS: BILIRUBIN,TOTAL 0.4 mg/dL (0.2-1); TOT PROT 6.3 g/dl (6.4-8.2)
[2022-03-28] MEDS: ENOXAPARIN NA (PORCINE) 80 MG/0.8 ML DISP.SYRIN SQ SCH ×2 (15:23→21:23)
[2022-03-28] MEDS: VANCOMYCIN/WATER FOR INJ (PEG) 750 MG/150 ML BAG IVPB SCH (17:35)
[2022-03-28] MEDS: ATORVASTATIN CA 10 MG TABLET (FP) PO SCH (21:23)
[2022-03-29] MEDS: MAG HYDROX/ALH/SMC/DPHA/LIDO 240 ML MOUTHWASH MM SCH ×4 (00:02→17:00)
[2022-03-29] MEDS: GABAPENTIN 300 MG CAPSULE PO SCH ×3 (05:49→22:44)
[2022-03-29] MEDS: AMINO ACIDS/PROTEIN HYDROLYS 30 ML LIQUID.PKT PO SCH (08:58)
[2022-03-29] MEDS: ENOXAPARIN NA (PORCINE) 80 MG/0.8 ML DISP.SYRIN SQ SCH ×2 (10:16→22:44)
[2022-03-29] MEDS: FUROSEMIDE 40 MG TABLET (FP) PO SCH (10:18)
[2022-03-29] MEDS: ASCORBIC ACID 250 MG TABLET (FP) PO SCH (10:18)
[2022-03-29] MEDS: PANTOPRAZOLE 40 MG TABLET PO SCH (10:18)
[2022-03-29] MEDS: MUPIROCIN CA 2% TOPICAL CREAM 15 GM TUBE TP SCH ×2 (10:18→22:44)
[2022-03-29] MEDS: MULTIVITAMINS THER W-MINERALS COMBO TABLET (FP) PO SCH (10:18)
[2022-03-29] MEDS: RIFAXIMIN 550 MG TABLET PO SCH ×2 (10:18→22:44)
[2022-03-29] MEDS: ZINC SULFATE 220 MG CAPSULE (FP) PO SCH (10:18)
[2022-03-29] MEDS: SERTRALINE HCL 25 MG TABLET (FP) PO SCH (10:18)
[2022-03-29] MEDS: LACTOBACILLUS ACIDOPHILUS 1 TABLET PO SCH ×2 (10:18→22:44)
[2022-03-29] MEDS: valACYclovir HCL 500 MG TABLET (FP) PO SCH ×2 (10:18→22:44)
[2022-03-29 12:01] LABS: BASO % 1.2 % (0-2.0); EOS % 8.5 % (0-4.5); HEMATOCRIT 33.7 % (32.4-45.2); LYMPH % 19.5 % (8-40); MCH 31.7 pg (25.7-33.7); MCHC 32.5 g/dl (32.0-36.0); MEAN CELL VOLUME 97.5 fl (80-96); MEAN PLT VOLUME 7.8 fl (7.5-11.1); MONO % 10.1 % (3.8-10.2); NEUT % 60.7 % (42.8-82.8); PLATELET COUNT 342 10^3/uL (134-434); RBC 3.45 M/mm3 (3.60-5.2); RDW 17.5 % (11.6-15.6)
[2022-03-29 12:18] LABS: CALCIUM 10.9 mg/dL (8.5-10.1)
[2022-03-29 12:19] LABS: BLOOD UREA NITROGEN 18.2 mg/dL (7-18)
[2022-03-29 12:22] LABS: CREATININE 0.6 mg/dL (0.55-1.3)
[2022-03-29] MEDS: VANCOMYCIN/WATER FOR INJ (PEG) 750 MG/150 ML BAG IVPB SCH ×2 (16:32→17:00)
[2022-03-29] MEDS: ATORVASTATIN CA 10 MG TABLET (FP) PO SCH (22:44)
[2022-03-30] MEDS: MAG HYDROX/ALH/SMC/DPHA/LIDO 240 ML MOUTHWASH MM SCH ×5 (01:00→23:37)
[2022-03-30] MEDS: GABAPENTIN 300 MG CAPSULE PO SCH ×3 (07:28→23:37)
[2022-03-30] MEDS: SERTRALINE HCL 25 MG TABLET (FP) PO SCH (09:51)
[2022-03-30] MEDS: AMINO ACIDS/PROTEIN HYDROLYS 30 ML LIQUID.PKT PO SCH (09:51)
[2022-03-30] MEDS: MULTIVITAMINS THER W-MINERALS COMBO TABLET (FP) PO SCH (09:51)
[2022-03-30] MEDS: RIFAXIMIN 550 MG TABLET PO SCH (09:51)
[2022-03-30] MEDS: FUROSEMIDE 40 MG TABLET (FP) PO SCH (09:52)
[2022-03-30] MEDS: LACTOBACILLUS ACIDOPHILUS 1 TABLET PO SCH ×2 (09:52→23:37)
[2022-03-30] MEDS: ENOXAPARIN NA (PORCINE) 80 MG/0.8 ML DISP.SYRIN SQ SCH ×2 (09:52→23:37)
[2022-03-30] MEDS: ASCORBIC ACID 250 MG TABLET (FP) PO SCH (09:52)
[2022-03-30] MEDS: ZINC SULFATE 220 MG CAPSULE (FP) PO SCH (09:52)
[2022-03-30] MEDS: PANTOPRAZOLE 40 MG TABLET PO SCH (09:52)
[2022-03-30] MEDS: valACYclovir HCL 500 MG TABLET (FP) PO SCH ×2 (09:52→23:37)
[2022-03-30] MEDS: MUPIROCIN CA 2% TOPICAL CREAM 15 GM TUBE TP SCH ×2 (11:23→23:38)
[2022-03-30] MEDS: VANCOMYCIN/WATER FOR INJ (PEG) 750 MG/150 ML BAG IVPB SCH (17:57)
[2022-03-30] MEDS: ATORVASTATIN CA 10 MG TABLET (FP) PO SCH (23:37)
[2022-03-31] MEDS: GABAPENTIN 300 MG CAPSULE PO SCH ×3 (07:14→21:07)
[2022-03-31] MEDS: MAG HYDROX/ALH/SMC/DPHA/LIDO 240 ML MOUTHWASH MM SCH ×4 (07:14→23:32)
[2022-03-31] MEDS: CALAMINE 8% TOPICAL LOTION 177 ML BOTTLE TP PRN (07:15)
[2022-03-31] MEDS: AMINO ACIDS/PROTEIN HYDROLYS 30 ML LIQUID.PKT PO SCH (08:27)
[2022-03-31] MEDS: MULTIVITAMINS THER W-MINERALS COMBO TABLET (FP) PO SCH (09:14)
[2022-03-31] MEDS: LACTOBACILLUS ACIDOPHILUS 1 TABLET PO SCH ×2 (09:14→21:07)
[2022-03-31] MEDS: ZINC SULFATE 220 MG CAPSULE (FP) PO SCH (09:14)
[2022-03-31] MEDS: FUROSEMIDE 40 MG TABLET (FP) PO SCH (09:14)
[2022-03-31] MEDS: PANTOPRAZOLE 40 MG TABLET PO SCH (09:14)
[2022-03-31] MEDS: SERTRALINE HCL 25 MG TABLET (FP) PO SCH (09:15)
[2022-03-31] MEDS: ASCORBIC ACID 250 MG TABLET (FP) PO SCH (09:15)
[2022-03-31] MEDS: valACYclovir HCL 500 MG TABLET (FP) PO SCH ×2 (09:15→21:07)
[2022-03-31] MEDS: ENOXAPARIN NA (PORCINE) 80 MG/0.8 ML DISP.SYRIN SQ SCH (09:15)
[2022-03-31] MEDS: MUPIROCIN CA 2% TOPICAL CREAM 15 GM TUBE TP SCH ×2 (09:22→21:07)
[2022-03-31] MEDS ORDERED: VANCOMYCIN 1,000 MG VIAL (RESTRICTED TO ID ONLY) ONE (15:22)
[2022-03-31] MEDS ORDERED: MIDAZOLAM HCL 2 MG/2 ML SINGLE DOSE VIAL ONE (15:25)
[2022-03-31] MEDS ORDERED: PROPOFOL 40 ML ONE (15:26)
[2022-03-31] MEDS ORDERED: LIDOCAINE HCL/PF 2% SDV 5ML VIAL ONE (15:29)
[2022-03-31] MEDS ORDERED: PHENYLEPHRINE HCL 10 MG/1 ML SINGLE DOSE VIAL ONE (15:29)
[2022-03-31] MEDS ORDERED: ETOMIDATE 20 MG/10 ML VIAL IVPUSH ONE (15:29)
[2022-03-31] MEDS ORDERED: ceFAZolin SODIUM 1 GM VIAL IVPB ONE (18:40)
[2022-03-31] MEDS: VANCOMYCIN/WATER FOR INJ (PEG) 750 MG/150 ML BAG IVPB SCH (18:57)
[2022-03-31] MEDS ORDERED: CALAMINE 8% TOPICAL LOTION 177 ML BOTTLE TP PRN (19:34)
[2022-03-31] MEDS: ATORVASTATIN CA 10 MG TABLET (FP) PO SCH (21:07)
[2022-03-31] MEDS ORDERED: LABETALOL HCL 5 MG/1 ML (100MG/20 ML VIAL) IVPUSH ONE (21:15)
[2022-03-31] MEDS ORDERED: ONDANSETRON 4 MG/2 ML VIAL IVPUSH PRN (21:15)
[2022-03-31] MEDS: LACTATED RINGERS SOLUTION 1,000 ML IV SCH (23:31)
[2022-04-01] MEDS: MAG HYDROX/ALH/SMC/DPHA/LIDO 240 ML MOUTHWASH MM SCH ×3 (05:10→17:06)
[2022-04-01] MEDS: GABAPENTIN 300 MG CAPSULE PO SCH ×3 (05:10→21:23)
[2022-04-01] MEDS: AMINO ACIDS/PROTEIN HYDROLYS 30 ML LIQUID.PKT PO SCH (08:01)
[2022-04-01] MEDS: SERTRALINE HCL 25 MG TABLET (FP) PO SCH (09:04)
[2022-04-01] MEDS: MULTIVITAMINS THER W-MINERALS COMBO TABLET (FP) PO SCH (09:04)
[2022-04-01] MEDS: LACTOBACILLUS ACIDOPHILUS 1 TABLET PO SCH ×2 (09:04→21:22)
[2022-04-01] MEDS: ASCORBIC ACID 250 MG TABLET (FP) PO SCH (09:05)
[2022-04-01] MEDS: FUROSEMIDE 40 MG TABLET (FP) PO SCH (09:05)
[2022-04-01] MEDS: MUPIROCIN CA 2% TOPICAL CREAM 15 GM TUBE TP SCH ×2 (09:05→21:24)
[2022-04-01] MEDS: PANTOPRAZOLE 40 MG TABLET PO SCH (09:05)
[2022-04-01] MEDS: valACYclovir HCL 500 MG TABLET (FP) PO SCH ×2 (09:05→21:23)
[2022-04-01 09:34] LABS: HEMATOCRIT 32.4 % (32.4-45.2); HEMOGLOBIN 11.2 GM/dL (10.7-15.3); MCH 33.7 pg (25.7-33.7); MCHC 34.7 g/dl (32.0-36.0); MEAN CELL VOLUME 97.2 fl (80-96); MEAN PLT VOLUME 6.9 fl (7.5-11.1); PLATELET COUNT 288 10^3/uL (134-434); RBC 3.33 M/mm3 (3.60-5.2); RDW 17.7 % (11.6-15.6); WHITE BLOOD COUNT 4.9 K/mm3 (4.0-10.0)
[2022-04-01 10:19] LABS: CALCIUM 10.9 mg/dL (8.5-10.1)
[2022-04-01 10:20] LABS: ALBUMIN 2.8 g/dl (3.4-5.0); BLOOD UREA NITROGEN 19.2 mg/dL (7-18)
[2022-04-01 10:23] LABS: CREATININE 0.7 mg/dL (0.55-1.3)
[2022-04-01 10:25] LABS: BILIRUBIN,TOTAL 1.2 mg/dL (0.2-1); TOT PROT 6.4 g/dl (6.4-8.2)
[2022-04-01] MEDS: VANCOMYCIN/WATER FOR INJ (PEG) 750 MG/150 ML BAG IVPB SCH (16:09)
[2022-04-01] MEDS: ATORVASTATIN CA 10 MG TABLET (FP) PO SCH (21:23)
[2022-04-02] MEDS: MAG HYDROX/ALH/SMC/DPHA/LIDO 240 ML MOUTHWASH MM SCH ×4 (02:33→18:12)
[2022-04-02] MEDS: LACTATED RINGERS SOLUTION 1,000 ML IV SCH ×2 (03:22→21:34)
[2022-04-02] MEDS: GABAPENTIN 300 MG CAPSULE PO SCH ×3 (05:53→21:34)
[2022-04-02] MEDS: AMINO ACIDS/PROTEIN HYDROLYS 30 ML LIQUID.PKT PO SCH (08:45)
[2022-04-02] MEDS: MULTIVITAMINS THER W-MINERALS COMBO TABLET (FP) PO SCH (11:01)
[2022-04-02] MEDS: ASCORBIC ACID 250 MG TABLET (FP) PO SCH (11:01)
[2022-04-02] MEDS: FUROSEMIDE 40 MG TABLET (FP) PO SCH (11:01)
[2022-04-02] MEDS: valACYclovir HCL 500 MG TABLET (FP) PO SCH ×2 (11:01→21:34)
[2022-04-02] MEDS: LACTOBACILLUS ACIDOPHILUS 1 TABLET PO SCH ×2 (11:01→21:34)
[2022-04-02] MEDS: PANTOPRAZOLE 40 MG TABLET PO SCH (11:01)
[2022-04-02] MEDS: SERTRALINE HCL 25 MG TABLET (FP) PO SCH (11:02)
[2022-04-02] MEDS: MUPIROCIN CA 2% TOPICAL CREAM 15 GM TUBE TP SCH ×2 (11:02→21:35)
[2022-04-02] MEDS: VANCOMYCIN/WATER FOR INJ (PEG) 750 MG/150 ML BAG IVPB SCH (19:02)
[2022-04-02] MEDS ORDERED: ACETAMINOPHEN 1000 MG/100 ML BAG IVPB ONE (20:32)
[2022-04-02] MEDS: ATORVASTATIN CA 10 MG TABLET (FP) PO SCH (21:34)
[2022-04-03] MEDS: MAG HYDROX/ALH/SMC/DPHA/LIDO 240 ML MOUTHWASH MM SCH ×4 (00:45→17:40)
[2022-04-03] MEDS: GABAPENTIN 300 MG CAPSULE PO SCH ×3 (06:41→22:39)
[2022-04-03] MEDS: AMINO ACIDS/PROTEIN HYDROLYS 30 ML LIQUID.PKT PO SCH (08:31)
[2022-04-03 09:44] LABS: HEMATOCRIT 33.9 % (32.4-45.2); HEMOGLOBIN 11.2 GM/dL (10.7-15.3); MCH 32.2 pg (25.7-33.7); MEAN CELL VOLUME 97.6 fl (80-96); MEAN PLT VOLUME 7.5 fl (7.5-11.1); PLATELET COUNT 297 10^3/uL (134-434); RBC 3.47 M/mm3 (3.60-5.2); RDW 17.5 % (11.6-15.6); WHITE BLOOD COUNT 5.9 K/mm3 (4.0-10.0)
[2022-04-03] MEDS: SERTRALINE HCL 25 MG TABLET (FP) PO SCH (09:46)
[2022-04-03] MEDS: PANTOPRAZOLE 40 MG TABLET PO SCH (09:46)
[2022-04-03] MEDS: LACTOBACILLUS ACIDOPHILUS 1 TABLET PO SCH ×2 (09:46→22:39)
[2022-04-03] MEDS: valACYclovir HCL 500 MG TABLET (FP) PO SCH ×2 (09:46→22:39)
[2022-04-03] MEDS: ASCORBIC ACID 250 MG TABLET (FP) PO SCH (09:46)
[2022-04-03] MEDS: FUROSEMIDE 40 MG TABLET (FP) PO SCH (09:46)
[2022-04-03] MEDS: MULTIVITAMINS THER W-MINERALS COMBO TABLET (FP) PO SCH (09:47)
[2022-04-03] MEDS: MUPIROCIN CA 2% TOPICAL CREAM 15 GM TUBE TP SCH (09:47)
[2022-04-03 10:13] LABS: BLOOD UREA NITROGEN 23.8 mg/dL (7-18); CALCIUM 10.6 mg/dL (8.5-10.1)
[2022-04-03 10:17] LABS: CREATININE 0.5 mg/dL (0.55-1.3)
[2022-04-03] MEDS: VANCOMYCIN/WATER FOR INJ (PEG) 750 MG/150 ML BAG IVPB SCH (17:41)
[2022-04-03] MEDS: ATORVASTATIN CA 10 MG TABLET (FP) PO SCH (22:39)
[2022-04-03] MEDS: ACETAMINOPHEN 500 MG TABLET (FP) PO PRN (22:39)
[2022-04-04] MEDS: MAG HYDROX/ALH/SMC/DPHA/LIDO 240 ML MOUTHWASH MM SCH ×4 (00:22→17:41)
[2022-04-04] MEDS: GABAPENTIN 300 MG CAPSULE PO SCH ×3 (05:18→22:40)
[2022-04-04] MEDS: AMINO ACIDS/PROTEIN HYDROLYS 30 ML LIQUID.PKT PO SCH (08:31)
[2022-04-04] MEDS: PANTOPRAZOLE 40 MG TABLET PO SCH (09:49)
[2022-04-04] MEDS: LACTOBACILLUS ACIDOPHILUS 1 TABLET PO SCH ×2 (09:49→22:40)
[2022-04-04] MEDS: FUROSEMIDE 40 MG TABLET (FP) PO SCH (09:49)
[2022-04-04] MEDS: MULTIVITAMINS THER W-MINERALS COMBO TABLET (FP) PO SCH (09:49)
[2022-04-04] MEDS: ASCORBIC ACID 250 MG TABLET (FP) PO SCH (09:49)
[2022-04-04] MEDS: valACYclovir HCL 500 MG TABLET (FP) PO SCH ×2 (09:49→22:41)
[2022-04-04] MEDS: SERTRALINE HCL 25 MG TABLET (FP) PO SCH (09:49)
[2022-04-04] MEDS: VANCOMYCIN/WATER FOR INJ (PEG) 750 MG/150 ML BAG IVPB SCH (17:40)
[2022-04-04] MEDS: ATORVASTATIN CA 10 MG TABLET (FP) PO SCH (22:40)
[2022-04-05] MEDS: MAG HYDROX/ALH/SMC/DPHA/LIDO 240 ML MOUTHWASH MM SCH ×4 (01:48→17:37)
[2022-04-05] MEDS: GABAPENTIN 300 MG CAPSULE PO SCH ×3 (06:07→21:12)
[2022-04-05] MEDS: ACETAMINOPHEN 500 MG TABLET (FP) PO PRN ×2 (06:07→15:20)
[2022-04-05] MEDS: MULTIVITAMINS THER W-MINERALS COMBO TABLET (FP) PO SCH (09:12)
[2022-04-05] MEDS: AMINO ACIDS/PROTEIN HYDROLYS 30 ML LIQUID.PKT PO SCH (09:12)
[2022-04-05] MEDS: valACYclovir HCL 500 MG TABLET (FP) PO SCH ×2 (09:13→21:13)
[2022-04-05] MEDS: ASCORBIC ACID 250 MG TABLET (FP) PO SCH (09:14)
[2022-04-05] MEDS: LACTOBACILLUS ACIDOPHILUS 1 TABLET PO SCH ×2 (09:14→21:13)
[2022-04-05] MEDS: SERTRALINE HCL 25 MG TABLET (FP) PO SCH (09:14)
[2022-04-05] MEDS: PANTOPRAZOLE 40 MG TABLET PO SCH (09:14)
[2022-04-05] MEDS: FUROSEMIDE 40 MG TABLET (FP) PO SCH (09:14)
[2022-04-05] MEDS: VANCOMYCIN 500 MG in DEXTROSE 5%-WATER 100 ML IVPB SCH (17:36)
[2022-04-05] MEDS: ATORVASTATIN CA 10 MG TABLET (FP) PO SCH (21:13)
[2022-04-06] MEDS: MAG HYDROX/ALH/SMC/DPHA/LIDO 240 ML MOUTHWASH MM SCH ×5 (00:28→18:30)
[2022-04-06] MEDS: GABAPENTIN 300 MG CAPSULE PO SCH ×3 (06:22→21:17)
[2022-04-06] MEDS: AMINO ACIDS/PROTEIN HYDROLYS 30 ML LIQUID.PKT PO SCH (07:56)
[2022-04-06] MEDS: ASCORBIC ACID 250 MG TABLET (FP) PO SCH (09:38)
[2022-04-06] MEDS: MULTIVITAMINS THER W-MINERALS COMBO TABLET (FP) PO SCH (09:38)
[2022-04-06] MEDS: LACTOBACILLUS ACIDOPHILUS 1 TABLET PO SCH ×2 (09:38→21:17)
[2022-04-06] MEDS: valACYclovir HCL 500 MG TABLET (FP) PO SCH ×2 (09:38→21:17)
[2022-04-06] MEDS: FUROSEMIDE 40 MG TABLET (FP) PO SCH (09:38)
[2022-04-06] MEDS: PANTOPRAZOLE 40 MG TABLET PO SCH (09:38)
[2022-04-06] MEDS: SERTRALINE HCL 25 MG TABLET (FP) PO SCH (09:40)
[2022-04-06 10:21] LABS: BASO % 0.9 % (0-2.0); EOS % 6.4 % (0-4.5); HEMATOCRIT 34.1 % (32.4-45.2); HEMOGLOBIN 11.1 GM/dL (10.7-15.3); LYMPH % 22.1 % (8-40); MCH 32.4 pg (25.7-33.7); MCHC 32.5 g/dl (32.0-36.0); MEAN CELL VOLUME 99.8 fl (80-96); MEAN PLT VOLUME 7.9 fl (7.5-11.1); MONO % 9.8 % (3.8-10.2); NEUT % 60.8 % (42.8-82.8); PLATELET COUNT 255 10^3/uL (134-434); RBC 3.42 M/mm3 (3.60-5.2); RDW 17.1 % (11.6-15.6); WHITE BLOOD COUNT 5.4 K/mm3 (4.0-10.0)
[2022-04-06 10:57] LABS: ALBUMIN 2.7 g/dl (3.4-5.0); BLOOD UREA NITROGEN 28.4 mg/dL (7-18); CALCIUM 10.7 mg/dL (8.5-10.1)
[2022-04-06 11:00] LABS: CREATININE 0.5 mg/dL (0.55-1.3); PHOSPHOROUS 2.8 mg/dL (2.5-4.9)
[2022-04-06 11:01] LABS: BILIRUBIN,TOTAL 0.3 mg/dL (0.2-1)
[2022-04-06] MEDS: VANCOMYCIN 500 MG in DEXTROSE 5%-WATER 100 ML IVPB SCH (17:04)
[2022-04-06] MEDS: ATORVASTATIN CA 10 MG TABLET (FP) PO SCH (21:17)
[2022-04-07] MEDS: GABAPENTIN 300 MG CAPSULE PO SCH ×3 (05:32→21:34)
[2022-04-07] MEDS: MAG HYDROX/ALH/SMC/DPHA/LIDO 240 ML MOUTHWASH MM SCH ×2 (06:27→12:04)
[2022-04-07] MEDS: AMINO ACIDS/PROTEIN HYDROLYS 30 ML LIQUID.PKT PO SCH (08:30)
[2022-04-07] MEDS: MULTIVITAMINS THER W-MINERALS COMBO TABLET (FP) PO SCH (09:09)
[2022-04-07] MEDS: LACTOBACILLUS ACIDOPHILUS 1 TABLET PO SCH ×2 (09:09→21:33)
[2022-04-07] MEDS: valACYclovir HCL 500 MG TABLET (FP) PO SCH (09:09)
[2022-04-07] MEDS: FUROSEMIDE 40 MG TABLET (FP) PO SCH (09:09)
[2022-04-07] MEDS: ASCORBIC ACID 250 MG TABLET (FP) PO SCH (09:09)
[2022-04-07] MEDS: SERTRALINE HCL 25 MG TABLET (FP) PO SCH (09:09)
[2022-04-07] MEDS: PANTOPRAZOLE 40 MG TABLET PO SCH (09:09)
[2022-04-07] MEDS ORDERED: PROPOFOL 20 ML ONE (10:41)
[2022-04-07] MEDS ORDERED: LIDOCAINE HCL 2% 100 MG/5 ML DISP.SYRIN ONE (10:41)
[2022-04-07] MEDS ORDERED: MIDAZOLAM HCL 2 MG/2 ML SINGLE DOSE VIAL ONE (10:42)
[2022-04-07] MEDS ORDERED: ceFAZolin SODIUM 1 GM VIAL ONE (11:41)
[2022-04-07] MEDS ORDERED: KETOROLAC TROMETHAMINE 30 MG/1 ML VIAL ONE (12:51)
[2022-04-07] MEDS ORDERED: ONDANSETRON 4 MG/2 ML VIAL ONE (12:51)
[2022-04-07] MEDS ORDERED: PROMETHAZINE HCL 25 MG/1 ML VIAL IVPUSH PRN (13:20)
[2022-04-07] MEDS ORDERED: ONDANSETRON 4 MG/2 ML VIAL IVPUSH PRN (13:20)
[2022-04-07] MEDS ORDERED: LACTATED RINGERS SOLUTION 1,000 ML IV SCH (13:30)
[2022-04-07] MEDS ORDERED: MAG HYDROX/AL HYDROX/SIMETH 30 ML UNIT-DOSE CUP PO PRN (13:55)
[2022-04-07] MEDS: VANCOMYCIN 500 MG in DEXTROSE 5%-WATER - 100 ML IVPB SCH (16:56)
[2022-04-07] MEDS: ATORVASTATIN CA 10 MG TABLET (FP) PO SCH (21:34)
[2022-04-07] MEDS ORDERED: valACYclovir HCL 500 MG TABLET (FP) PO SCH (22:00)
[2022-04-08] MEDS: GABAPENTIN 300 MG CAPSULE PO SCH ×3 (06:00→21:37)
[2022-04-08] MEDS: MULTIVITAMINS THER W-MINERALS COMBO TABLET (FP) PO SCH (09:10)
[2022-04-08] MEDS: LACTOBACILLUS ACIDOPHILUS 1 TABLET PO SCH ×2 (09:10→21:37)
[2022-04-08] MEDS: AMINO ACIDS/PROTEIN HYDROLYS 30 ML LIQUID.PKT PO SCH (09:10)
[2022-04-08] MEDS: ASCORBIC ACID 250 MG TABLET (FP) PO SCH (09:11)
[2022-04-08] MEDS: PANTOPRAZOLE 40 MG TABLET PO SCH (09:24)
[2022-04-08] MEDS: FUROSEMIDE 40 MG TABLET (FP) PO SCH (09:24)
[2022-04-08] MEDS ORDERED: traMADol HCL 50 MG TABLET PO PRN (09:53)
[2022-04-08 13:26] LABS: HEMATOCRIT 27.2 % (32.4-45.2); HEMOGLOBIN 9.3 GM/dL (10.7-15.3); MCH 33.7 pg (25.7-33.7); MEAN CELL VOLUME 99.2 fl (80-96); MEAN PLT VOLUME 8.3 fl (7.5-11.1); PLATELET COUNT 246 10^3/uL (134-434); RBC 2.75 M/mm3 (3.60-5.2); RDW 17.2 % (11.6-15.6); WHITE BLOOD COUNT 6.3 K/mm3 (4.0-10.0)
[2022-04-08 13:51] LABS: ALBUMIN 2.4 g/dl (3.4-5.0); BLOOD UREA NITROGEN 26.8 mg/dL (7-18)
[2022-04-08 13:55] LABS: CREATININE 0.6 mg/dL (0.55-1.3)
[2022-04-08 13:56] LABS: BILIRUBIN,TOTAL 0.3 mg/dL (0.2-1); TOT PROT 5.6 g/dl (6.4-8.2)
[2022-04-08] MEDS: VANCOMYCIN 500 MG in DEXTROSE 5%-WATER - 100 ML IVPB SCH (17:05)
[2022-04-08] MEDS: ATORVASTATIN CA 10 MG TABLET (FP) PO SCH (21:38)
[2022-04-09] MEDS: GABAPENTIN 300 MG CAPSULE PO SCH ×3 (05:32→21:11)
[2022-04-09 08:42] LABS: HEMATOCRIT 24.3 % (32.4-45.2); HEMOGLOBIN 8.5 GM/dL (10.7-15.3); MCH 34.3 pg (25.7-33.7); MEAN CELL VOLUME 98.2 fl (80-96); MEAN PLT VOLUME 7.7 fl (7.5-11.1); PLATELET COUNT 197 10^3/uL (134-434); RBC 2.48 M/mm3 (3.60-5.2); RDW 16.8 % (11.6-15.6); WHITE BLOOD COUNT 4.9 K/mm3 (4.0-10.0)
[2022-04-09 09:14] LABS: CALCIUM 10.1 mg/dL (8.5-10.1)
[2022-04-09 09:15] LABS: ALBUMIN 2.3 g/dl (3.4-5.0); BLOOD UREA NITROGEN 24.9 mg/dL (7-18)
[2022-04-09 09:18] LABS: CREATININE 0.7 mg/dL (0.55-1.3)
[2022-04-09 09:19] LABS: TOT PROT 5.2 g/dl (6.4-8.2)
[2022-04-09 09:20] LABS: BILIRUBIN,TOTAL 0.3 mg/dL (0.2-1)
[2022-04-09] MEDS: FUROSEMIDE 40 MG TABLET (FP) PO SCH (09:32)
[2022-04-09] MEDS: PANTOPRAZOLE 40 MG TABLET PO SCH (09:32)
[2022-04-09] MEDS: LACTOBACILLUS ACIDOPHILUS 1 TABLET PO SCH ×2 (09:32→21:12)
[2022-04-09] MEDS: MULTIVITAMINS THER W-MINERALS COMBO TABLET (FP) PO SCH (09:32)
[2022-04-09] MEDS: ASCORBIC ACID 250 MG TABLET (FP) PO SCH (09:32)
[2022-04-09] MEDS: AMINO ACIDS/PROTEIN HYDROLYS 30 ML LIQUID.PKT PO SCH (10:49)
[2022-04-09] MEDS ORDERED: SODIUM CHLORIDE 1,000 ML IV SCH (15:00)
[2022-04-09] MEDS: VANCOMYCIN 500 MG in DEXTROSE 5%-WATER - 100 ML IVPB SCH (18:07)
[2022-04-09] MEDS: ATORVASTATIN CA 10 MG TABLET (FP) PO SCH (21:12)
[2022-04-09] MEDS: ACETAMINOPHEN 1000 MG/100 ML BAG IVPB PRN ×2 (21:15)
[2022-04-10] MEDS: GABAPENTIN 300 MG CAPSULE PO SCH ×3 (06:37→21:40)
[2022-04-10] MEDS: AMINO ACIDS/PROTEIN HYDROLYS 30 ML LIQUID.PKT PO SCH (09:00)
[2022-04-10] MEDS: LACTOBACILLUS ACIDOPHILUS 1 TABLET PO SCH ×2 (09:07→21:40)
[2022-04-10] MEDS: PANTOPRAZOLE 40 MG TABLET PO SCH (09:07)
[2022-04-10] MEDS: FUROSEMIDE 40 MG TABLET (FP) PO SCH (09:07)
[2022-04-10] MEDS: MULTIVITAMINS THER W-MINERALS COMBO TABLET (FP) PO SCH (09:07)
[2022-04-10] MEDS: ASCORBIC ACID 250 MG TABLET (FP) PO SCH (09:08)
[2022-04-10] MEDS: VANCOMYCIN 500 MG in DEXTROSE 5%-WATER - 100 ML IVPB SCH (17:18)
[2022-04-10] MEDS: ATORVASTATIN CA 10 MG TABLET (FP) PO SCH (21:40)
[2022-04-11] MEDS: GABAPENTIN 300 MG CAPSULE PO SCH ×3 (06:02→21:27)
[2022-04-11] MEDS: AMINO ACIDS/PROTEIN HYDROLYS 30 ML LIQUID.PKT PO SCH (09:00)
[2022-04-11] MEDS: FUROSEMIDE 40 MG TABLET (FP) PO SCH (09:25)
[2022-04-11] MEDS: LACTOBACILLUS ACIDOPHILUS 1 TABLET PO SCH ×2 (09:25→21:28)
[2022-04-11] MEDS: ASCORBIC ACID 250 MG TABLET (FP) PO SCH (09:25)
[2022-04-11] MEDS: PANTOPRAZOLE 40 MG TABLET PO SCH (09:25)
[2022-04-11] MEDS: MULTIVITAMINS THER W-MINERALS COMBO TABLET (FP) PO SCH (09:25)
[2022-04-11 10:13] LABS: BASO % 1.1 % (0-2.0); HEMATOCRIT 26.5 % (32.4-45.2); HEMOGLOBIN 9.2 GM/dL (10.7-15.3); MCH 34.2 pg (25.7-33.7); MCHC 34.6 g/dl (32.0-36.0); MEAN CELL VOLUME 98.6 fl (80-96); MEAN PLT VOLUME 7.9 fl (7.5-11.1); MONO % 8.2 % (3.8-10.2); NEUT % 57.7 % (42.8-82.8); PLATELET COUNT 227 10^3/uL (134-434); RBC 2.68 M/mm3 (3.60-5.2); RDW 17.1 % (11.6-15.6); WHITE BLOOD COUNT 4.3 K/mm3 (4.0-10.0)
[2022-04-11 10:26] LABS: ALBUMIN 2.4 g/dl (3.4-5.0); CALCIUM 9.9 mg/dL (8.5-10.1)
[2022-04-11 10:30] LABS: CREATININE 0.5 mg/dL (0.55-1.3)
[2022-04-11 10:31] LABS: BILIRUBIN,TOTAL 0.3 mg/dL (0.2-1); TOT PROT 5.7 g/dl (6.4-8.2)
[2022-04-11] MEDS: VANCOMYCIN 500 MG in DEXTROSE 5%-WATER - 100 ML IVPB SCH (16:43)
[2022-04-11] MEDS: APIXABAN 5 MG TABLET PO SCH (21:27)
[2022-04-11] MEDS: ATORVASTATIN CA 10 MG TABLET (FP) PO SCH (21:27)
[2022-04-12] MEDS: GABAPENTIN 300 MG CAPSULE PO SCH ×3 (06:02→21:28)
[2022-04-12] MEDS: AMINO ACIDS/PROTEIN HYDROLYS 30 ML LIQUID.PKT PO SCH (08:30)
[2022-04-12] MEDS: MULTIVITAMINS THER W-MINERALS COMBO TABLET (FP) PO SCH (10:03)
[2022-04-12] MEDS: LACTOBACILLUS ACIDOPHILUS 1 TABLET PO SCH ×2 (10:03→21:28)
[2022-04-12] MEDS: ASCORBIC ACID 250 MG TABLET (FP) PO SCH (10:03)
[2022-04-12] MEDS: PANTOPRAZOLE 40 MG TABLET PO SCH (10:03)
[2022-04-12] MEDS: FUROSEMIDE 40 MG TABLET (FP) PO SCH (10:03)
[2022-04-12] MEDS: APIXABAN 5 MG TABLET PO SCH ×2 (10:03→21:28)
[2022-04-12 12:17] LABS: BASO % 0.7 % (0-2.0); EOS % 5.4 % (0-4.5); HEMATOCRIT 27.5 % (32.4-45.2); HEMOGLOBIN 9.3 GM/dL (10.7-15.3); LYMPH % 21.4 % (8-40); MCH 33.2 pg (25.7-33.7); MCHC 33.6 g/dl (32.0-36.0); MEAN CELL VOLUME 98.8 fl (80-96); MEAN PLT VOLUME 7.6 fl (7.5-11.1); MONO % 7.9 % (3.8-10.2); NEUT % 64.6 % (42.8-82.8); PLATELET COUNT 276 10^3/uL (134-434); RBC 2.79 M/mm3 (3.60-5.2); RDW 16.8 % (11.6-15.6); WHITE BLOOD COUNT 5.5 K/mm3 (4.0-10.0)
[2022-04-12 12:36] LABS: CALCIUM 10.1 mg/dL (8.5-10.1)
[2022-04-12 12:37] LABS: ALBUMIN 2.5 g/dl (3.4-5.0); BLOOD UREA NITROGEN 22.8 mg/dL (7-18)
[2022-04-12 12:40] LABS: CREATININE 0.6 mg/dL (0.55-1.3)
[2022-04-12 12:41] LABS: TOT PROT 5.6 g/dl (6.4-8.2)
[2022-04-12 12:42] LABS: BILIRUBIN,TOTAL 0.4 mg/dL (0.2-1)
[2022-04-12] MEDS: VANCOMYCIN 500 MG in DEXTROSE 5%-WATER - 100 ML IVPB SCH (18:03)
[2022-04-12] MEDS: ATORVASTATIN CA 10 MG TABLET (FP) PO SCH (21:28)
[2022-04-12] MEDS ORDERED: IRON SUCROSE INJECTION 100 MG in SODIUM CHLORIDE 95 ML IVPB ONE (22:10)
[2022-04-12] MEDS ORDERED: IRON SUCROSE INJECTION 200 MG in SODIUM CHLORIDE 90 ML IVPB ONE (22:12)
[2022-04-13] MEDS: GABAPENTIN 300 MG CAPSULE PO SCH ×3 (05:50→21:12)
[2022-04-13] MEDS: AMINO ACIDS/PROTEIN HYDROLYS 30 ML LIQUID.PKT PO SCH (08:44)
[2022-04-13] MEDS: PANTOPRAZOLE 40 MG TABLET PO SCH (10:05)
[2022-04-13] MEDS: MULTIVITAMINS THER W-MINERALS COMBO TABLET (FP) PO SCH (10:05)
[2022-04-13] MEDS: APIXABAN 5 MG TABLET PO SCH ×2 (10:05→21:12)
[2022-04-13] MEDS: FUROSEMIDE 40 MG TABLET (FP) PO SCH (10:05)
[2022-04-13] MEDS: ASCORBIC ACID 250 MG TABLET (FP) PO SCH (10:05)
[2022-04-13] MEDS: LACTOBACILLUS ACIDOPHILUS 1 TABLET PO SCH ×2 (10:05→21:12)
[2022-04-13] MEDS: VANCOMYCIN 500 MG in DEXTROSE 5%-WATER - 100 ML IVPB SCH (17:28)
[2022-04-13] MEDS: ATORVASTATIN CA 10 MG TABLET (FP) PO SCH (21:12)
[2022-04-14] MEDS: GABAPENTIN 300 MG CAPSULE PO SCH ×3 (05:14→21:04)
[2022-04-14] MEDS: AMINO ACIDS/PROTEIN HYDROLYS 30 ML LIQUID.PKT PO SCH (08:09)
[2022-04-14] MEDS: ASCORBIC ACID 250 MG TABLET (FP) PO SCH (09:39)
[2022-04-14] MEDS: CINACALCET HCL 30 MG TAB (FP) PO SCH (09:39)
[2022-04-14] MEDS: PANTOPRAZOLE 40 MG TABLET PO SCH (09:39)
[2022-04-14] MEDS: LACTOBACILLUS ACIDOPHILUS 1 TABLET PO SCH ×2 (09:39→21:04)
[2022-04-14] MEDS: MULTIVITAMINS THER W-MINERALS COMBO TABLET (FP) PO SCH (09:39)
[2022-04-14] MEDS: APIXABAN 5 MG TABLET PO SCH ×2 (09:39→21:03)
[2022-04-14] MEDS: FUROSEMIDE 40 MG TABLET (FP) PO SCH (09:39)
[2022-04-14 10:56] LABS: HEMATOCRIT 27.3 % (32.4-45.2); HEMOGLOBIN 9.3 GM/dL (10.7-15.3); MCH 33.5 pg (25.7-33.7); MEAN CELL VOLUME 98.6 fl (80-96); MEAN PLT VOLUME 7.6 fl (7.5-11.1); PLATELET COUNT 285 10^3/uL (134-434); RBC 2.77 M/mm3 (3.60-5.2); RDW 16.7 % (11.6-15.6); WHITE BLOOD COUNT 5.1 K/mm3 (4.0-10.0)
[2022-04-14 11:13] LABS: ALBUMIN 2.5 g/dl (3.4-5.0); BLOOD UREA NITROGEN 20.2 mg/dL (7-18)
[2022-04-14 11:16] LABS: CREATININE 0.5 mg/dL (0.55-1.3)
[2022-04-14 11:17] LABS: BILIRUBIN,TOTAL 0.4 mg/dL (0.2-1)
[2022-04-14 11:18] LABS: TOT PROT 5.6 g/dl (6.4-8.2)
[2022-04-14] MEDS: VANCOMYCIN 500 MG in DEXTROSE 5%-WATER - 100 ML IVPB SCH (17:00)
[2022-04-14] MEDS: ATORVASTATIN CA 10 MG TABLET (FP) PO SCH (21:04)
[2022-04-15] MEDS: GABAPENTIN 300 MG CAPSULE PO SCH ×3 (05:40→21:09)
[2022-04-15] MEDS: APIXABAN 5 MG TABLET PO SCH ×2 (10:05→21:09)
[2022-04-15] MEDS: AMINO ACIDS/PROTEIN HYDROLYS 30 ML LIQUID.PKT PO SCH (10:05)
[2022-04-15] MEDS: CINACALCET HCL 30 MG TAB (FP) PO SCH (10:06)
[2022-04-15] MEDS: LACTOBACILLUS ACIDOPHILUS 1 TABLET PO SCH ×2 (10:06→21:09)
[2022-04-15] MEDS: FUROSEMIDE 40 MG TABLET (FP) PO SCH (10:06)
[2022-04-15] MEDS: ASCORBIC ACID 250 MG TABLET (FP) PO SCH (10:06)
[2022-04-15] MEDS: MULTIVITAMINS THER W-MINERALS COMBO TABLET (FP) PO SCH (10:06)
[2022-04-15] MEDS: PANTOPRAZOLE 40 MG TABLET PO SCH (10:06)
[2022-04-15] MEDS: ATORVASTATIN CA 10 MG TABLET (FP) PO SCH (21:09)
[2022-04-16] MEDS: GABAPENTIN 300 MG CAPSULE PO SCH ×2 (07:30→22:11)
[2022-04-16] MEDS: AMINO ACIDS/PROTEIN HYDROLYS 30 ML LIQUID.PKT PO SCH (08:00)
[2022-04-16] MEDS: LACTOBACILLUS ACIDOPHILUS 1 TABLET PO SCH ×2 (10:00→22:11)
[2022-04-16] MEDS ORDERED: LIDOCAINE HCL/PF 2% SDV 5ML VIAL ONE (13:38)
[2022-04-16] MEDS ORDERED: ONDANSETRON 4 MG/2 ML VIAL ONE (13:38)
[2022-04-16] MEDS ORDERED: PROPOFOL 20 ML ONE (13:38)
[2022-04-16] MEDS ORDERED: SUCCINYLCHOLINE CHLORIDE 200 MG/10 ML SYRINGE ONE (13:38)
[2022-04-16] MEDS ORDERED: DEXAMETHASONE SOD PHOSPHATE 4 MG/1 ML VIAL ONE (13:38)
[2022-04-16] MEDS ORDERED: ceFAZolin SODIUM 1 GM VIAL IVPB ONE (14:07)
[2022-04-16] MEDS ORDERED: ACETAMINOPHEN 1000 MG/100 ML BAG IVPB ONE (14:52)
[2022-04-16] MEDS ORDERED: ONDANSETRON 4 MG/2 ML VIAL IVPUSH PRN (14:52)
[2022-04-16] MEDS ORDERED: ACETAMINOPHEN 1000 MG/100 ML BAG IVPB PRN (14:57)
[2022-04-16] MEDS ORDERED: MAG HYDROX/AL HYDROX/SIMETH 30 ML UNIT-DOSE CUP PO PRN (14:57)
[2022-04-16] MEDS ORDERED: LACTATED RINGERS SOLUTION 1,000 ML IV SCH (15:00)
[2022-04-16] MEDS ORDERED: oxyCODONE HCL 5 MG TABLET PO ONE (20:01)
[2022-04-16] MEDS: APIXABAN 5 MG TABLET PO SCH (22:11)
[2022-04-16] MEDS: ATORVASTATIN CA 10 MG TABLET (FP) PO SCH (22:11)
[2022-04-17] MEDS ORDERED: ACETAMINOPHEN 1000 MG/100 ML BAG IVPB ONE (01:49)
[2022-04-17] MEDS: GABAPENTIN 300 MG CAPSULE PO SCH ×3 (06:41→21:01)
[2022-04-17] MEDS: MULTIVITAMINS THER W-MINERALS COMBO TABLET (FP) PO SCH (09:34)
[2022-04-17] MEDS: LACTOBACILLUS ACIDOPHILUS 1 TABLET PO SCH ×2 (09:34→21:01)
[2022-04-17] MEDS: AMINO ACIDS/PROTEIN HYDROLYS 30 ML LIQUID.PKT PO SCH (09:34)
[2022-04-17] MEDS: PANTOPRAZOLE 40 MG TABLET PO SCH (09:34)
[2022-04-17] MEDS: FUROSEMIDE 40 MG TABLET (FP) PO SCH (09:34)
[2022-04-17] MEDS: APIXABAN 5 MG TABLET PO SCH ×2 (09:34→21:01)
[2022-04-17] MEDS: CINACALCET HCL 30 MG TAB (FP) PO SCH (09:34)
[2022-04-17] MEDS: ASCORBIC ACID 250 MG TABLET (FP) PO SCH (09:34)
[2022-04-17] MEDS ORDERED: ACETAMINOPHEN 325 MG TABLET (FP) ONE (13:20)
[2022-04-17 15:00] LABS: CALCIUM 10.6 mg/dL (8.5-10.1)
[2022-04-17 15:01] LABS: ALBUMIN 2.8 g/dl (3.4-5.0)
[2022-04-17 15:06] LABS: BILIRUBIN,TOTAL 0.4 mg/dL (0.2-1); TOT PROT 6.1 g/dl (6.4-8.2)
[2022-04-17 15:08] LABS: BLOOD UREA NITROGEN 21.3 mg/dL (7-18); CREATININE 0.7 mg/dL (0.55-1.3)
[2022-04-17] MEDS: VANCOMYCIN 500 MG in DEXTROSE 5%-WATER 100 ML IVPB SCH (16:48)
[2022-04-17] MEDS: ATORVASTATIN CA 10 MG TABLET (FP) PO SCH (21:01)
[2022-04-18] MEDS: GABAPENTIN 300 MG CAPSULE PO SCH ×3 (06:02→21:00)
[2022-04-18 09:41] LABS: ALBUMIN 2.7 g/dl (3.4-5.0); CALCIUM 10.2 mg/dL (8.5-10.1)
[2022-04-18 09:42] LABS: BLOOD UREA NITROGEN 16.3 mg/dL (7-18)
[2022-04-18 09:45] LABS: CREATININE 0.6 mg/dL (0.55-1.3)
[2022-04-18 09:46] LABS: BILIRUBIN,TOTAL 0.4 mg/dL (0.2-1); TOT PROT 5.6 g/dl (6.4-8.2)
[2022-04-18] MEDS: AMINO ACIDS/PROTEIN HYDROLYS 30 ML LIQUID.PKT PO SCH (10:38)
[2022-04-18] MEDS: APIXABAN 5 MG TABLET PO SCH ×2 (10:40→20:59)
[2022-04-18] MEDS: MULTIVITAMINS THER W-MINERALS COMBO TABLET (FP) PO SCH (10:40)
[2022-04-18] MEDS: PANTOPRAZOLE 40 MG TABLET PO SCH (10:40)
[2022-04-18] MEDS: LACTOBACILLUS ACIDOPHILUS 1 TABLET PO SCH ×2 (10:40→20:59)
[2022-04-18] MEDS: FUROSEMIDE 40 MG TABLET (FP) PO SCH (10:40)
[2022-04-18] MEDS: CINACALCET HCL 30 MG TAB (FP) PO SCH (10:40)
[2022-04-18] MEDS: ASCORBIC ACID 250 MG TABLET (FP) PO SCH (10:40)
[2022-04-18] MEDS: oxyCODONE HCL 5 MG TABLET PO PRN (13:30)
[2022-04-18] MEDS: VANCOMYCIN 500 MG in DEXTROSE 5%-WATER 100 ML IVPB SCH (16:36)
[2022-04-18] MEDS: ATORVASTATIN CA 10 MG TABLET (FP) PO SCH (20:59)
[2022-04-19] MEDS: GABAPENTIN 300 MG CAPSULE PO SCH ×3 (05:43→22:05)
[2022-04-19] MEDS: AMINO ACIDS/PROTEIN HYDROLYS 30 ML LIQUID.PKT PO SCH (08:16)
[2022-04-19] MEDS: PANTOPRAZOLE 40 MG TABLET PO SCH (09:17)
[2022-04-19] MEDS: oxyCODONE HCL 5 MG TABLET PO PRN ×2 (09:17→20:16)
[2022-04-19] MEDS: LACTOBACILLUS ACIDOPHILUS 1 TABLET PO SCH ×2 (09:17→22:05)
[2022-04-19] MEDS: ASCORBIC ACID 250 MG TABLET (FP) PO SCH (09:17)
[2022-04-19] MEDS: FUROSEMIDE 40 MG TABLET (FP) PO SCH (09:17)
[2022-04-19] MEDS: APIXABAN 5 MG TABLET PO SCH ×2 (09:18→22:05)
[2022-04-19] MEDS: CINACALCET HCL 30 MG TAB (FP) PO SCH (09:18)
[2022-04-19] MEDS: MULTIVITAMINS THER W-MINERALS COMBO TABLET (FP) PO SCH (09:18)
[2022-04-19 10:49] LABS: BASO % 0.8 % (0-2.0); EOS % 3.8 % (0-4.5); HEMATOCRIT 28.9 % (32.4-45.2); HEMOGLOBIN 9.6 GM/dL (10.7-15.3); LYMPH % 15.9 % (8-40); MCH 32.9 pg (25.7-33.7); MCHC 33.2 g/dl (32.0-36.0); MEAN CELL VOLUME 99.1 fl (80-96); MEAN PLT VOLUME 7.9 fl (7.5-11.1); MONO % 6.7 % (3.8-10.2); NEUT % 72.8 % (42.8-82.8); PLATELET COUNT 352 10^3/uL (134-434); RBC 2.92 M/mm3 (3.60-5.2); RDW 15.9 % (11.6-15.6)
[2022-04-19 11:22] LABS: CALCIUM 9.8 mg/dL (8.5-10.1)
[2022-04-19 11:23] LABS: ALBUMIN 2.6 g/dl (3.4-5.0); BLOOD UREA NITROGEN 15.7 mg/dL (7-18)
[2022-04-19 11:26] LABS: CREATININE 0.7 mg/dL (0.55-1.3)
[2022-04-19 11:28] LABS: BILIRUBIN,TOTAL 0.5 mg/dL (0.2-1); TOT PROT 5.7 g/dl (6.4-8.2)
[2022-04-19] MEDS: VANCOMYCIN 500 MG in DEXTROSE 5%-WATER 100 ML IVPB SCH (15:48)
[2022-04-19] MEDS: ATORVASTATIN CA 10 MG TABLET (FP) PO SCH (22:05)
[2022-04-20] MEDS: GABAPENTIN 300 MG CAPSULE PO SCH ×3 (06:40→21:45)
[2022-04-20] MEDS: AMINO ACIDS/PROTEIN HYDROLYS 30 ML LIQUID.PKT PO SCH (09:00)
[2022-04-20] MEDS: oxyCODONE HCL 5 MG TABLET PO PRN ×2 (09:00→17:42)
[2022-04-20] MEDS: PANTOPRAZOLE 40 MG TABLET PO SCH (09:01)
[2022-04-20] MEDS: ASCORBIC ACID 250 MG TABLET (FP) PO SCH (09:01)
[2022-04-20] MEDS: FUROSEMIDE 40 MG TABLET (FP) PO SCH (09:01)
[2022-04-20] MEDS: MULTIVITAMINS THER W-MINERALS COMBO TABLET (FP) PO SCH (09:01)
[2022-04-20] MEDS: LACTOBACILLUS ACIDOPHILUS 1 TABLET PO SCH ×2 (09:01→21:45)
[2022-04-20] MEDS: CINACALCET HCL 30 MG TAB (FP) PO SCH (09:01)
[2022-04-20] MEDS: APIXABAN 5 MG TABLET PO SCH ×2 (10:49→21:45)
[2022-04-20] MEDS: VANCOMYCIN 500 MG in DEXTROSE 5%-WATER 100 ML IVPB SCH (15:45)
[2022-04-20] MEDS: ATORVASTATIN CA 10 MG TABLET (FP) PO SCH (21:45)
[2022-04-21] MEDS: GABAPENTIN 300 MG CAPSULE PO SCH ×3 (06:46→21:03)
[2022-04-21] MEDS: AMINO ACIDS/PROTEIN HYDROLYS 30 ML LIQUID.PKT PO SCH (08:23)
[2022-04-21] MEDS: CINACALCET HCL 30 MG TAB (FP) PO SCH (09:07)
[2022-04-21] MEDS: MULTIVITAMINS THER W-MINERALS COMBO TABLET (FP) PO SCH (09:07)
[2022-04-21] MEDS: PANTOPRAZOLE 40 MG TABLET PO SCH (09:07)
[2022-04-21] MEDS: ASCORBIC ACID 250 MG TABLET (FP) PO SCH (09:07)
[2022-04-21] MEDS: APIXABAN 5 MG TABLET PO SCH ×2 (09:07→21:03)
[2022-04-21] MEDS: oxyCODONE HCL 5 MG TABLET PO PRN ×2 (09:07→20:47)
[2022-04-21] MEDS: LACTOBACILLUS ACIDOPHILUS 1 TABLET PO SCH ×2 (09:07→21:03)
[2022-04-21] MEDS: FUROSEMIDE 40 MG TABLET (FP) PO SCH (09:07)
[2022-04-21] MEDS: traMADol HCL 50 MG TABLET PO PRN (14:55)
[2022-04-21] MEDS: VANCOMYCIN 500 MG in DEXTROSE 5%-WATER 100 ML IVPB SCH (16:26)
[2022-04-21] MEDS: ATORVASTATIN CA 10 MG TABLET (FP) PO SCH (21:03)
[2022-04-22] MEDS: GABAPENTIN 300 MG CAPSULE PO SCH ×3 (02:23→21:03)
[2022-04-22] MEDS: traMADol HCL 50 MG TABLET PO PRN ×2 (05:29→20:54)
[2022-04-22] MEDS: FUROSEMIDE 40 MG TABLET (FP) PO SCH (09:30)
[2022-04-22] MEDS: LACTOBACILLUS ACIDOPHILUS 1 TABLET PO SCH ×2 (09:30→21:03)
[2022-04-22] MEDS: CINACALCET HCL 30 MG TAB (FP) PO SCH (09:30)
[2022-04-22] MEDS: MULTIVITAMINS THER W-MINERALS COMBO TABLET (FP) PO SCH (09:30)
[2022-04-22] MEDS: PANTOPRAZOLE 40 MG TABLET PO SCH (09:30)
[2022-04-22] MEDS: AMINO ACIDS/PROTEIN HYDROLYS 30 ML LIQUID.PKT PO SCH (09:30)
[2022-04-22] MEDS: APIXABAN 5 MG TABLET PO SCH ×2 (09:30→21:03)
[2022-04-22] MEDS: ASCORBIC ACID 250 MG TABLET (FP) PO SCH (09:31)
[2022-04-22 12:21] LABS: ALBUMIN 2.6 g/dl (3.4-5.0); CALCIUM 9.8 mg/dL (8.5-10.1)
[2022-04-22 12:23] LABS: BLOOD UREA NITROGEN 22.3 mg/dL (7-18)
[2022-04-22 12:25] LABS: CREATININE 0.6 mg/dL (0.55-1.3)
[2022-04-22 12:26] LABS: BILIRUBIN,TOTAL 0.5 mg/dL (0.2-1); TOT PROT 5.9 g/dl (6.4-8.2)
[2022-04-22] MEDS: VANCOMYCIN 500 MG in DEXTROSE 5%-WATER 100 ML IVPB SCH (16:48)
[2022-04-22] MEDS: ATORVASTATIN CA 10 MG TABLET (FP) PO SCH (21:03)
[2022-04-23] MEDS: GABAPENTIN 300 MG CAPSULE PO SCH ×3 (06:08→21:21)
[2022-04-23] MEDS: AMINO ACIDS/PROTEIN HYDROLYS 30 ML LIQUID.PKT PO SCH (09:19)
[2022-04-23] MEDS: LACTOBACILLUS ACIDOPHILUS 1 TABLET PO SCH ×2 (09:19→21:21)
[2022-04-23] MEDS: ASCORBIC ACID 250 MG TABLET (FP) PO SCH (09:19)
[2022-04-23] MEDS: traMADol HCL 50 MG TABLET PO PRN ×2 (09:19→18:05)
[2022-04-23] MEDS: PANTOPRAZOLE 40 MG TABLET PO SCH (09:20)
[2022-04-23] MEDS: CINACALCET HCL 30 MG TAB (FP) PO SCH (09:20)
[2022-04-23] MEDS: MULTIVITAMINS THER W-MINERALS COMBO TABLET (FP) PO SCH (09:20)
[2022-04-23] MEDS: APIXABAN 5 MG TABLET PO SCH ×2 (09:20→21:22)
[2022-04-23] MEDS: FUROSEMIDE 20 MG TABLET (FP) PO SCH (09:20)
[2022-04-23 10:42] LABS: BLOOD UREA NITROGEN 21.6 mg/dL (7-18); CALCIUM 9.9 mg/dL (8.5-10.1)
[2022-04-23 10:46] LABS: CREATININE 0.7 mg/dL (0.55-1.3)
[2022-04-23] MEDS: VANCOMYCIN 500 MG in DEXTROSE 5%-WATER 100 ML IVPB SCH (18:05)
[2022-04-23] MEDS: ATORVASTATIN CA 10 MG TABLET (FP) PO SCH (21:22)
[2022-04-24] MEDS: GABAPENTIN 300 MG CAPSULE PO SCH ×3 (06:23→21:44)
[2022-04-24] MEDS: traMADol HCL 50 MG TABLET PO PRN (06:48)
[2022-04-24] MEDS: LACTOBACILLUS ACIDOPHILUS 1 TABLET PO SCH ×2 (08:59→21:44)
[2022-04-24] MEDS: PANTOPRAZOLE 40 MG TABLET PO SCH (08:59)
[2022-04-24] MEDS: APIXABAN 5 MG TABLET PO SCH ×2 (08:59→21:44)
[2022-04-24] MEDS: FUROSEMIDE 20 MG TABLET (FP) PO SCH (08:59)
[2022-04-24] MEDS: CINACALCET HCL 30 MG TAB (FP) PO SCH (08:59)
[2022-04-24] MEDS: AMINO ACIDS/PROTEIN HYDROLYS 30 ML LIQUID.PKT PO SCH (08:59)
[2022-04-24] MEDS: ASCORBIC ACID 250 MG TABLET (FP) PO SCH (08:59)
[2022-04-24] MEDS: MULTIVITAMINS THER W-MINERALS COMBO TABLET (FP) PO SCH (08:59)
[2022-04-24] MEDS ORDERED: traMADol HCL 50 MG TABLET PO PRN (13:31)
[2022-04-24] MEDS: oxyCODONE HCL 5 MG TABLET PO PRN (13:34)
[2022-04-24] MEDS: VANCOMYCIN 500 MG in DEXTROSE 5%-WATER 100 ML IVPB SCH (16:34)
[2022-04-24] MEDS: ATORVASTATIN CA 10 MG TABLET (FP) PO SCH (21:44)
[2022-04-25] MEDS: GABAPENTIN 300 MG CAPSULE PO SCH ×3 (05:51→21:25)
[2022-04-25] MEDS: AMINO ACIDS/PROTEIN HYDROLYS 30 ML LIQUID.PKT PO SCH (09:00)
[2022-04-25] MEDS: ASCORBIC ACID 250 MG TABLET (FP) PO SCH (09:19)
[2022-04-25] MEDS: CINACALCET HCL 30 MG TAB (FP) PO SCH (09:19)
[2022-04-25] MEDS: FUROSEMIDE 20 MG TABLET (FP) PO SCH (09:19)
[2022-04-25] MEDS: oxyCODONE HCL 5 MG TABLET PO PRN (09:19)
[2022-04-25] MEDS: PANTOPRAZOLE 40 MG TABLET PO SCH (09:19)
[2022-04-25] MEDS: LACTOBACILLUS ACIDOPHILUS 1 TABLET PO SCH ×2 (09:19→21:25)
[2022-04-25] MEDS: MULTIVITAMINS THER W-MINERALS COMBO TABLET (FP) PO SCH (09:20)
[2022-04-25] MEDS: APIXABAN 5 MG TABLET PO SCH ×2 (09:20→21:25)
[2022-04-25] MEDS: VANCOMYCIN 500 MG in DEXTROSE 5%-WATER 100 ML IVPB SCH (16:31)
[2022-04-25] MEDS: ATORVASTATIN CA 10 MG TABLET (FP) PO SCH (21:25)
[2022-04-26] MEDS: GABAPENTIN 300 MG CAPSULE PO SCH ×3 (05:44→21:11)
[2022-04-26] MEDS: AMINO ACIDS/PROTEIN HYDROLYS 30 ML LIQUID.PKT PO SCH (09:46)
[2022-04-26] MEDS: ASCORBIC ACID 250 MG TABLET (FP) PO SCH (09:47)
[2022-04-26] MEDS: LACTOBACILLUS ACIDOPHILUS 1 TABLET PO SCH ×2 (09:47→21:14)
[2022-04-26] MEDS: CINACALCET HCL 30 MG TAB (FP) PO SCH (09:47)
[2022-04-26] MEDS: MULTIVITAMINS THER W-MINERALS COMBO TABLET (FP) PO SCH (09:47)
[2022-04-26] MEDS: PANTOPRAZOLE 40 MG TABLET PO SCH (09:47)
[2022-04-26] MEDS: FUROSEMIDE 20 MG TABLET (FP) PO SCH (09:47)
[2022-04-26] MEDS: APIXABAN 5 MG TABLET PO SCH ×2 (09:47→21:15)
[2022-04-26 10:37] LABS: ALBUMIN 2.8 g/dl (3.4-5.0); BLOOD UREA NITROGEN 20.6 mg/dL (7-18); CALCIUM 10.1 mg/dL (8.5-10.1)
[2022-04-26 10:40] LABS: CREATININE 0.7 mg/dL (0.55-1.3)
[2022-04-26 10:42] LABS: BILIRUBIN,TOTAL 0.4 mg/dL (0.2-1); TOT PROT 6.4 g/dl (6.4-8.2)
[2022-04-26] MEDS: VANCOMYCIN 500 MG in DEXTROSE 5%-WATER 100 ML IVPB SCH (16:52)
[2022-04-26] MEDS: ATORVASTATIN CA 10 MG TABLET (FP) PO SCH (21:15)
[2022-04-27] MEDS: GABAPENTIN 300 MG CAPSULE PO SCH ×3 (06:01→22:24)
[2022-04-27] MEDS: AMINO ACIDS/PROTEIN HYDROLYS 30 ML LIQUID.PKT PO SCH (08:57)
[2022-04-27] MEDS: ASCORBIC ACID 250 MG TABLET (FP) PO SCH (08:59)
[2022-04-27] MEDS: PANTOPRAZOLE 40 MG TABLET PO SCH (08:59)
[2022-04-27] MEDS: CINACALCET HCL 30 MG TAB (FP) PO SCH (08:59)
[2022-04-27] MEDS: APIXABAN 5 MG TABLET PO SCH ×2 (08:59→22:24)
[2022-04-27] MEDS: FUROSEMIDE 20 MG TABLET (FP) PO SCH (08:59)
[2022-04-27] MEDS: LACTOBACILLUS ACIDOPHILUS 1 TABLET PO SCH ×2 (08:59→22:24)
[2022-04-27] MEDS: MULTIVITAMINS THER W-MINERALS COMBO TABLET (FP) PO SCH (10:04)
[2022-04-27 10:06] LABS: BASO % 1.2 % (0-2.0); EOS % 6.6 % (0-4.5); HEMATOCRIT 31.6 % (32.4-45.2); HEMOGLOBIN 10.6 GM/dL (10.7-15.3); LYMPH % 22.9 % (8-40); MCH 32.2 pg (25.7-33.7); MCHC 33.5 g/dl (32.0-36.0); MEAN CELL VOLUME 96.1 fl (80-96); MEAN PLT VOLUME 7.4 fl (7.5-11.1); MONO % 7.5 % (3.8-10.2); NEUT % 61.8 % (42.8-82.8); PLATELET COUNT 390 10^3/uL (134-434); RBC 3.29 M/mm3 (3.60-5.2); RDW 15.3 % (11.6-15.6); WHITE BLOOD COUNT 4.9 K/mm3 (4.0-10.0)
[2022-04-27] MEDS: oxyCODONE HCL 5 MG TABLET PO PRN (11:48)
[2022-04-27] MEDS: VANCOMYCIN 500 MG in DEXTROSE 5%-WATER 100 ML IVPB SCH (16:53)
[2022-04-27] MEDS: ATORVASTATIN CA 10 MG TABLET (FP) PO SCH (22:24)
[2022-04-28 00:32] VITALS: RESP 18
[2022-04-28] MEDS: GABAPENTIN 300 MG CAPSULE PO SCH ×3 (06:37→22:06)
[2022-04-28] MEDS: AMINO ACIDS/PROTEIN HYDROLYS 30 ML LIQUID.PKT PO SCH (09:00)
[2022-04-28] MEDS: MULTIVITAMINS THER W-MINERALS COMBO TABLET (FP) PO SCH (10:23)
[2022-04-28] MEDS: APIXABAN 5 MG TABLET PO SCH ×2 (10:23→22:07)
[2022-04-28] MEDS: ASCORBIC ACID 250 MG TABLET (FP) PO SCH (10:24)
[2022-04-28] MEDS: PANTOPRAZOLE 40 MG TABLET PO SCH (10:24)
[2022-04-28] MEDS: LACTOBACILLUS ACIDOPHILUS 1 TABLET PO SCH ×2 (10:24→22:06)
[2022-04-28] MEDS: FUROSEMIDE 20 MG TABLET (FP) PO SCH (10:24)
[2022-04-28] MEDS: CINACALCET HCL 30 MG TAB (FP) PO SCH (10:28)
[2022-04-28] MEDS: oxyCODONE HCL 5 MG TABLET PO PRN (12:07)
[2022-04-28] MEDS: VANCOMYCIN 500 MG in DEXTROSE 5%-WATER 100 ML IVPB SCH (16:57)
[2022-04-28] MEDS: ATORVASTATIN CA 10 MG TABLET (FP) PO SCH (22:06)
[2022-04-29] MEDS: oxyCODONE HCL 5 MG TABLET PO PRN ×2 (00:53→10:26)
[2022-04-29] MEDS: GABAPENTIN 300 MG CAPSULE PO SCH ×3 (06:06→21:30)
[2022-04-29] MEDS: AMINO ACIDS/PROTEIN HYDROLYS 30 ML LIQUID.PKT PO SCH (08:31)
[2022-04-29] MEDS: LACTOBACILLUS ACIDOPHILUS 1 TABLET PO SCH ×2 (09:40→21:30)
[2022-04-29] MEDS: FUROSEMIDE 20 MG TABLET (FP) PO SCH (09:40)
[2022-04-29] MEDS: MULTIVITAMINS THER W-MINERALS COMBO TABLET (FP) PO SCH (09:40)
[2022-04-29] MEDS: PANTOPRAZOLE 40 MG TABLET PO SCH (09:41)
[2022-04-29] MEDS: CINACALCET HCL 30 MG TAB (FP) PO SCH (09:41)
[2022-04-29] MEDS: APIXABAN 5 MG TABLET PO SCH ×2 (09:41→21:30)
[2022-04-29] MEDS: ASCORBIC ACID 250 MG TABLET (FP) PO SCH (09:41)
[2022-04-29] MEDS: VANCOMYCIN 500 MG in DEXTROSE 5%-WATER 100 ML IVPB SCH (16:31)
[2022-04-29] MEDS: ATORVASTATIN CA 10 MG TABLET (FP) PO SCH (21:30)
[2022-04-29 22:32] VITALS: BMI 28.7
[2022-04-30] MEDS: GABAPENTIN 300 MG CAPSULE PO SCH ×3 (05:29→21:20)
[2022-04-30] MEDS ORDERED: AMINO ACIDS/PROTEIN HYDROLYS 30 ML LIQUID.PKT PO SCH ×2 (08:00)
[2022-04-30] MEDS: AMINO ACIDS/PROTEIN HYDROLYS 30 ML LIQUID.PKT PO SCH ×2 (08:52→17:25)
[2022-04-30 10:31] LABS: ALBUMIN 2.6 g/dl (3.4-5.0); BLOOD UREA NITROGEN 16.2 mg/dL (7-18); CALCIUM 8.9 mg/dL (8.5-10.1)
[2022-04-30 10:35] LABS: BILIRUBIN,TOTAL 0.3 mg/dL (0.2-1); TOT PROT 5.8 g/dl (6.4-8.2)
[2022-04-30 10:47] LABS: CREATININE 0.6 mg/dL (0.55-1.3)
[2022-04-30] MEDS: ASCORBIC ACID 250 MG TABLET (FP) PO SCH (10:47)
[2022-04-30] MEDS: CINACALCET HCL 30 MG TAB (FP) PO SCH (10:47)
[2022-04-30] MEDS: PANTOPRAZOLE 40 MG TABLET PO SCH (10:47)
[2022-04-30] MEDS: LACTOBACILLUS ACIDOPHILUS 1 TABLET PO SCH ×2 (10:47→21:21)
[2022-04-30] MEDS: FUROSEMIDE 20 MG TABLET (FP) PO SCH (10:47)
[2022-04-30] MEDS: MULTIVITAMINS THER W-MINERALS COMBO TABLET (FP) PO SCH (10:47)
[2022-04-30] MEDS: ZINC SULFATE 220 MG CAPSULE (FP) PO SCH (10:47)
[2022-04-30] MEDS: APIXABAN 5 MG TABLET PO SCH ×2 (10:47→21:21)
[2022-04-30] MEDS: oxyCODONE HCL 5 MG TABLET PO PRN (10:51)
[2022-04-30] MEDS ORDERED: ONDANSETRON 4 MG/2 ML VIAL IVPUSH PRN (13:21)
[2022-04-30] MEDS: VANCOMYCIN 500 MG in DEXTROSE 5%-WATER 100 ML IVPB SCH (16:37)
[2022-04-30] MEDS: ATORVASTATIN CA 10 MG TABLET (FP) PO SCH (21:21)
[2022-05-01] MEDS: GABAPENTIN 300 MG CAPSULE PO SCH ×3 (06:13→21:31)
[2022-05-01] MEDS: AMINO ACIDS/PROTEIN HYDROLYS 30 ML LIQUID.PKT PO SCH ×2 (08:11→17:24)
[2022-05-01] MEDS: ASCORBIC ACID 250 MG TABLET (FP) PO SCH (09:30)
[2022-05-01] MEDS: ZINC SULFATE 220 MG CAPSULE (FP) PO SCH (09:30)
[2022-05-01] MEDS: CINACALCET HCL 30 MG TAB (FP) PO SCH (09:30)
[2022-05-01] MEDS: PANTOPRAZOLE 40 MG TABLET PO SCH (09:30)
[2022-05-01] MEDS: MULTIVITAMINS THER W-MINERALS COMBO TABLET (FP) PO SCH (09:30)
[2022-05-01] MEDS: LACTOBACILLUS ACIDOPHILUS 1 TABLET PO SCH ×2 (09:31→21:30)
[2022-05-01] MEDS: APIXABAN 5 MG TABLET PO SCH ×2 (09:31→21:31)
[2022-05-01] MEDS: FUROSEMIDE 20 MG TABLET (FP) PO SCH (09:31)
[2022-05-01 09:51] LABS: BASO % 1.4 % (0-2.0); EOS % 8.8 % (0-4.5); HEMATOCRIT 31.5 % (32.4-45.2); HEMOGLOBIN 10.4 GM/dL (10.7-15.3); LYMPH % 23.2 % (8-40); MCH 31.7 pg (25.7-33.7); MEAN PLT VOLUME 7.3 fl (7.5-11.1); NEUT % 59.6 % (42.8-82.8); PLATELET COUNT 333 10^3/uL (134-434); RBC 3.28 M/mm3 (3.60-5.2); RDW 15.3 % (11.6-15.6)
[2022-05-01 10:13] LABS: ALBUMIN 2.6 g/dl (3.4-5.0); CALCIUM 9.2 mg/dL (8.5-10.1)
[2022-05-01 10:15] LABS: BLOOD UREA NITROGEN 18.3 mg/dL (7-18)
[2022-05-01 10:17] LABS: CREATININE 0.6 mg/dL (0.55-1.3)
[2022-05-01 10:19] LABS: BILIRUBIN,TOTAL 0.3 mg/dL (0.2-1)
[2022-05-01] MEDS: ATORVASTATIN CA 10 MG TABLET (FP) PO SCH (21:30)
[2022-05-02] MEDS: GABAPENTIN 300 MG CAPSULE PO SCH ×3 (06:25→21:14)
[2022-05-02] MEDS: traMADol HCL 50 MG TABLET PO PRN (09:14)
[2022-05-02] MEDS: ASCORBIC ACID 250 MG TABLET (FP) PO SCH (09:15)
[2022-05-02] MEDS: FUROSEMIDE 20 MG TABLET (FP) PO SCH (09:15)
[2022-05-02] MEDS: MULTIVITAMINS THER W-MINERALS COMBO TABLET (FP) PO SCH (09:15)
[2022-05-02] MEDS: AMINO ACIDS/PROTEIN HYDROLYS 30 ML LIQUID.PKT PO SCH ×2 (09:15→16:45)
[2022-05-02] MEDS: APIXABAN 5 MG TABLET PO SCH ×2 (09:15→21:14)
[2022-05-02] MEDS: LACTOBACILLUS ACIDOPHILUS 1 TABLET PO SCH ×2 (09:15→21:14)
[2022-05-02] MEDS: ZINC SULFATE 220 MG CAPSULE (FP) PO SCH (09:15)
[2022-05-02] MEDS: CINACALCET HCL 30 MG TAB (FP) PO SCH (09:15)
[2022-05-02] MEDS: PANTOPRAZOLE 40 MG TABLET PO SCH (09:16)
[2022-05-02] MEDS: VANCOMYCIN 500 MG in DEXTROSE 5%-WATER 100 ML IVPB SCH (16:45)
[2022-05-02] MEDS: ATORVASTATIN CA 10 MG TABLET (FP) PO SCH (21:14)
[2022-05-03] MEDS: GABAPENTIN 300 MG CAPSULE PO SCH ×3 (06:16→21:00)
[2022-05-03] MEDS: AMINO ACIDS/PROTEIN HYDROLYS 30 ML LIQUID.PKT PO SCH ×2 (09:00→16:32)
[2022-05-03] MEDS: CINACALCET HCL 30 MG TAB (FP) PO SCH (10:13)
[2022-05-03] MEDS: FUROSEMIDE 20 MG TABLET (FP) PO SCH (10:13)
[2022-05-03] MEDS: PANTOPRAZOLE 40 MG TABLET PO SCH (10:13)
[2022-05-03] MEDS: APIXABAN 5 MG TABLET PO SCH ×2 (10:13→21:02)
[2022-05-03] MEDS: LACTOBACILLUS ACIDOPHILUS 1 TABLET PO SCH ×2 (10:13→21:02)
[2022-05-03] MEDS: MULTIVITAMINS THER W-MINERALS COMBO TABLET (FP) PO SCH (10:13)
[2022-05-03] MEDS: ZINC SULFATE 220 MG CAPSULE (FP) PO SCH (10:13)
[2022-05-03] MEDS: traMADol HCL 50 MG TABLET PO PRN ×2 (10:14→21:01)
[2022-05-03] MEDS: ASCORBIC ACID 250 MG TABLET (FP) PO SCH (10:19)
[2022-05-03] MEDS: VANCOMYCIN 500 MG in DEXTROSE 5%-WATER 100 ML IVPB SCH (16:07)
[2022-05-03] MEDS ORDERED: oxyCODONE HCL 5 MG TABLET PO PRN (17:30)
[2022-05-03] MEDS: ATORVASTATIN CA 10 MG TABLET (FP) PO SCH (21:00)
[2022-05-04] MEDS: GABAPENTIN 300 MG CAPSULE PO SCH ×2 (05:48→14:18)
[2022-05-04] MEDS: AMINO ACIDS/PROTEIN HYDROLYS 30 ML LIQUID.PKT PO SCH ×2 (08:55→17:07)
[2022-05-04] MEDS: traMADol HCL 50 MG TABLET PO PRN (10:08)
[2022-05-04] MEDS: ZINC SULFATE 220 MG CAPSULE (FP) PO SCH (10:09)
[2022-05-04] MEDS: APIXABAN 5 MG TABLET PO SCH (10:09)
[2022-05-04] MEDS: FUROSEMIDE 20 MG TABLET (FP) PO SCH (10:09)
[2022-05-04] MEDS: CINACALCET HCL 30 MG TAB (FP) PO SCH (10:09)
[2022-05-04] MEDS: LACTOBACILLUS ACIDOPHILUS 1 TABLET PO SCH (10:09)
[2022-05-04] MEDS: PANTOPRAZOLE 40 MG TABLET PO SCH (10:09)
[2022-05-04] MEDS: MULTIVITAMINS THER W-MINERALS COMBO TABLET (FP) PO SCH (10:09)
[2022-05-04] MEDS: ASCORBIC ACID 250 MG TABLET (FP) PO SCH (10:09)
[2022-05-04 12:57] LABS: ALBUMIN 2.7 g/dl (3.4-5.0); BLOOD UREA NITROGEN 21.1 mg/dL (7-18)
[2022-05-04 13:00] LABS: CREATININE 0.5 mg/dL (0.55-1.3)
[2022-05-04 13:01] LABS: BILIRUBIN,TOTAL 0.5 mg/dL (0.2-1); TOT PROT 6.2 g/dl (6.4-8.2)
[2022-05-04 14:21] VITALS: TEMP 98.2
[2022-05-04] MEDS: VANCOMYCIN 500 MG in DEXTROSE 5%-WATER 100 ML IVPB SCH (17:06)
[2022-05-04 19:06] VITALS: BP 138/70; PULSE 74
== END 2022-05-04 20:29 | disposition still patient (30) | DRG 498 ==
LOC: JER 20:16 → JERBED 20:49 → J4W 03-09 22:29 → J6S 03-10 13:55
PROVIDERS: ADMIT Internal Medicine; ATTEND Family Medicine
PROC: 0JDL0ZZ Extraction of Right Upper Leg Subcutaneous Tissue and Fascia, Open Approach (ICD-10-PCS; 2022-03-31)
PROC: 2W1NX6Z Compression of Right Upper Leg using Pressure Dressing (ICD-10-PCS; 2022-03-31)
PROC: 0QBB0ZZ Excision of Right Lower Femur, Open Approach (ICD-10-PCS; 2022-04-07)
PROC: 0KN Muscles, Release (ICD-10-PCS; 2022-04-07)
PROC: 2W1NX6Z Compression of Right Upper Leg using Pressure Dressing (ICD-10-PCS; 2022-04-07)
PROC: 0J9L0ZZ Drainage of Right Upper Leg Subcutaneous Tissue and Fascia, Open Approach (ICD-10-PCS; principal; 2022-04-07 10:00)
PROC: 2W5 Placement, Anatomical Regions, Removal (ICD-10-PCS; 2022-04-16)
PROC: 0J9L0ZZ Drainage of Right Upper Leg Subcutaneous Tissue and Fascia, Open Approach (ICD-10-PCS; 2022-04-16)
DX: T87.43 Infection of amputation stump, right lower extremity (principal); G93.41 Metabolic encephalopathy; L03.115 Cellulitis of right lower limb; L97.118 Non-pressure chronic ulcer of right thigh with other specified severity; T81.49XA Infection following a procedure, other surgical site, initial encounter; L02.415 Cutaneous abscess of right lower limb; E87.1 Hypo-osmolality and hyponatremia; E83.52 Hypercalcemia; K21.9 Gastro-esophageal reflux disease without esophagitis; E78.00 Pure hypercholesterolemia, unspecified; J44.9 Chronic obstructive pulmonary disease, unspecified; I11.0 Hypertensive heart disease with heart failure; I50.9 Heart failure, unspecified; R53.83 Other fatigue; F41.8 Other specified anxiety disorders; B02.9 Zoster without complications; R41.0 Disorientation, unspecified; D64.9 Anemia, unspecified; Y83.8 Other surgical procedures as the cause of abnormal reaction of the patient, or of later complication, without mention of misadventure at the time of the procedure; B95.62 Methicillin resistant Staphylococcus aureus infection as the cause of diseases classified elsewhere; Z89.611 Acquired absence of right leg above knee; Z86.718 Personal history of other venous thrombosis and embolism; Z96.652 Presence of left artificial knee joint
CPT/HCPCS: 36415; 70450-TC; 71045-TC-FY; 73552-TC-RT-FY; 73721-RT-TC; 74018-TC-FY; 80048; 80053; 81003; 82140; 82310; 82607; 82728; 82746; 83540; 83550; 83735; 83970; 84100; 84443; 84466; 84484; 85025; 85027; 85045; 85651; 86140; 86850; 86900; 86901; 87040; 87070; 87086; 87186; 87205; 88307-TC; 88311-TC; 93005; 93010; 94760; 97162-GP; 99285-25; C9803-CS; G0480; J1756; U0003; U0005

== ENCOUNTER 2023-05-13 09:53 | Inpatient (IN) | payer OTHER ==
[2023-05-13 10:10] VITALS: BMI 28.3
[2023-05-13] MEDS ORDERED: FUROSEMIDE 40 MG/4 ML INJECTABLE VIAL IVPUSH ONE (11:05)
[2023-05-13] MEDS ORDERED: FUROSEMIDE 40 MG/4 ML INJECTABLE VIAL ONE (11:43)
[2023-05-13 11:47] LABS: VENOUS BASE EXCESS -0.6 mmol/L (-2-2); VENOUS O2 SATURATION 20.7 % (70-80); VENOUS PH 7.368 (7.310-7.410)
[2023-05-13 11:57] LABS: INR 1.22 (0.83-1.09); PROTHROMBIN TIME (PATIENT) 14.1 SEC (9.7-13.0)
[2023-05-13 12:00] LABS: ACTIVATED PTT 29.8 SECONDS (25.2-36.5)
[2023-05-13 12:06] LABS: BASO % 0.5 % (0-2.0); EOS % 0.4 % (0-4.5); HEMATOCRIT 16.7 % (32.4-45.2); LYMPH % 8.9 % (8-40); MCH 23.5 pg (25.7-33.7); MCHC 31.7 g/dl (32.0-36.0); MEAN CELL VOLUME 74.1 fl (80-96); MEAN PLT VOLUME 7.8 fl (7.5-11.1); MONO % 8.1 % (3.8-10.2); NEUT % 82.1 % (42.8-82.8); PLATELET COUNT 275 10^3/uL (134-434); RBC 2.26 M/mm3 (3.60-5.2); RDW 16.1 % (11.6-15.6)
[2023-05-13 12:09] LABS: POTASSIUM 4.8 mmol/L (3.5-5.1)
[2023-05-13 12:10] LABS: CALCIUM 8.3 mg/dL (8.5-10.1)
[2023-05-13 12:11] LABS: ALBUMIN 3.1 g/dl (3.4-5.0); BLOOD UREA NITROGEN 13.7 mg/dL (7-18)
[2023-05-13 12:12] LABS: HEMOGLOBIN 5.3 GM/dL (10.7-15.3)
[2023-05-13 12:14] LABS: BILIRUBIN,DIRECT 0.1 mg/dL (0.0-0.2)
[2023-05-13 12:16] LABS: BILIRUBIN,TOTAL 0.4 mg/dL (0.2-1); CREATININE 0.8 mg/dL (0.55-1.3)
[2023-05-13 12:17] LABS: TOT PROT 6.4 g/dl (6.4-8.2)
[2023-05-13 13:08] LABS: EPI CELLS 3 /uL (0-25.1); HYALINE CASTS 0 /uL (0-3.1); PH,URINE 7.5 (5.0-8.0); URINE APPEARANCE CLEAR; URINE BACTERIA 309 /uL (0-1359); URINE BILIRUBIN NEGATIVE (NEGATIVE); URINE COLOR YELLOW; URINE GLUCOSE (UA) NEGATIVE (NEGATIVE); URINE KETONE NEGATIVE (NEGATIVE); URINE LEUK ESTERASE 3+ (NEGATIVE); URINE NITRITE NEGATIVE (NEGATIVE); URINE PROTEIN NEGATIVE (NEGATIVE); URINE RBC 9 /uL (0-23.9); URINE UROBILINOGEN 0.2 mg/dL (0.2-1.0); URINE WBC 51 /uL (0-25.8)
[2023-05-13 13:53] LABS: RETICULOCYTES 2.95 % (0.5-1.5)
[2023-05-13 15:18] LABS: URINE UREA NITROGEN 105 MG/DL (350-1000)
[2023-05-13 15:26] LABS: CREATININE, URINE RANDOM < 13.0 mg/dL (30-150)
[2023-05-13] MEDS ORDERED: ALBUTEROL SO4 HFA INHALER IH PRN (15:38)
[2023-05-13] MEDS ORDERED: MAG HYDROX/AL HYDROX/SIMETH 30 ML UNIT-DOSE CUP PO PRN (15:38)
[2023-05-13 20:20] LABS: BASO % 0.5 % (0-2.0); EOS % 0.6 % (0-4.5); HEMATOCRIT 22.4 % (32.4-45.2); HEMOGLOBIN 7.1 GM/dL (10.7-15.3); LYMPH % 12.8 % (8-40); MCH 24.1 pg (25.7-33.7); MCHC 31.5 g/dl (32.0-36.0); MEAN CELL VOLUME 76.4 fl (80-96); MEAN PLT VOLUME 7.5 fl (7.5-11.1); MONO % 14.2 % (3.8-10.2); NEUT % 71.9 % (42.8-82.8); PLATELET COUNT 303 10^3/uL (134-434); RBC 2.93 M/mm3 (3.60-5.2); RDW 17.1 % (11.6-15.6); WHITE BLOOD COUNT 4.1 K/mm3 (4.0-10.0)
[2023-05-13 20:39] LABS: POTASSIUM 3.8 mmol/L (3.5-5.1)
[2023-05-13 20:41] LABS: CALCIUM 8.2 mg/dL (8.5-10.1)
[2023-05-13 20:42] LABS: ALBUMIN 3.1 g/dl (3.4-5.0); BLOOD UREA NITROGEN 12.2 mg/dL (7-18)
[2023-05-13 20:45] LABS: CREATININE 0.8 mg/dL (0.55-1.3)
[2023-05-13 20:47] LABS: BILIRUBIN,TOTAL 0.8 mg/dL (0.2-1); TOT PROT 6.3 g/dl (6.4-8.2)
[2023-05-13] MEDS ORDERED: FAMOTIDINE 20 MG TABLET PO SCH (22:00)
[2023-05-13] MEDS: LACTULOSE 20 GM/30 ML UDC (FOR ORAL USE ONLY) PO SCH (22:41)
[2023-05-13] MEDS: GABAPENTIN 400 MG CAPSULE PO SCH (22:41)
[2023-05-13] MEDS: LACTOBACILLUS ACIDOPHILUS 1 TABLET PO SCH (22:41)
[2023-05-13] MEDS: ASCORBIC ACID 250 MG TABLET (FP) PO SCH (22:41)
[2023-05-13] MEDS: MELATONIN 1 MG TABLET PO SCH (22:41)
[2023-05-13] MEDS: ATORVASTATIN CA 10 MG TABLET (FP) PO SCH (22:41)
[2023-05-13] MEDS: GABAPENTIN 100 MG CAPSULE PO SCH (22:41)
[2023-05-13] MEDS: LIDOCAINE PATCH REMOVAL MC SCH (22:42)
[2023-05-14 01:54] LABS: HEMATOCRIT 25.6 % (32.4-45.2); HEMOGLOBIN 8.5 GM/dL (10.7-15.3); MCH 26.1 pg (25.7-33.7); MEAN CELL VOLUME 79.2 fl (80-96); MEAN PLT VOLUME 7.4 fl (7.5-11.1); PLATELET COUNT 304 10^3/uL (134-434); RBC 3.24 M/mm3 (3.60-5.2); WHITE BLOOD COUNT 4.9 K/mm3 (4.0-10.0)
[2023-05-14] MEDS ORDERED: ACETAMINOPHEN 1000 MG/100 ML BAG IVPB ONE ×2 (04:57→23:14)
[2023-05-14] MEDS: GABAPENTIN 400 MG CAPSULE PO SCH ×3 (05:06→21:30)
[2023-05-14] MEDS: GABAPENTIN 100 MG CAPSULE PO SCH ×3 (05:06→21:29)
[2023-05-14 08:51] LABS: EOS % 0.9 % (0-4.5); HEMATOCRIT 23.9 % (32.4-45.2); LYMPH % 12.3 % (8-40); MCH 26.5 pg (25.7-33.7); MCHC 33.4 g/dl (32.0-36.0); MEAN CELL VOLUME 79.5 fl (80-96); MEAN PLT VOLUME 7.6 fl (7.5-11.1); MONO % 12.4 % (3.8-10.2); NEUT % 73.4 % (42.8-82.8); PLATELET COUNT 284 10^3/uL (134-434); RBC 3.01 M/mm3 (3.60-5.2); RDW 19.1 % (11.6-15.6); WHITE BLOOD COUNT 4.9 K/mm3 (4.0-10.0)
[2023-05-14 09:22] LABS: POTASSIUM 3.7 mmol/L (3.5-5.1)
[2023-05-14] MEDS: ASCORBIC ACID 250 MG TABLET (FP) PO SCH ×2 (09:25→21:29)
[2023-05-14] MEDS: LIDOCAINE 4% PATCH TP SCH (09:25)
[2023-05-14] MEDS: PANTOPRAZOLE 40 MG TABLET PO SCH (09:26)
[2023-05-14] MEDS: CINACALCET HCL 30 MG TAB (FP) PO SCH (09:26)
[2023-05-14] MEDS: LACTOBACILLUS ACIDOPHILUS 1 TABLET PO SCH ×2 (09:26→21:30)
[2023-05-14 09:28] LABS: BLOOD UREA NITROGEN 9.4 mg/dL (7-18); CALCIUM 8.3 mg/dL (8.5-10.1); MAGNESIUM 1.7 mg/dL (1.8-2.4)
[2023-05-14 09:31] LABS: CREATININE 0.8 mg/dL (0.55-1.3); PHOSPHOROUS 3.4 mg/dL (2.5-4.9)
[2023-05-14 09:32] LABS: BILIRUBIN,TOTAL 1.3 mg/dL (0.2-1)
[2023-05-14] MEDS: CIPROFLOXACIN 500 MG TABLET (RESTRICTED TO ID) PO SCH ×2 (09:33→22:28)
[2023-05-14] MEDS ORDERED: DOCUSATE SODIUM 100 MG CAPSULE (FP) PO SCH (10:00)
[2023-05-14] MEDS ORDERED: CIPROFLOXACIN 500 MG TABLET (RESTRICTED TO ID) PO SCH (10:00)
[2023-05-14] MEDS ORDERED: IRON SUCROSE INJECTION 200 MG in SODIUM CHLORIDE 90 ML IVPB ONE (10:00)
[2023-05-14] MEDS ORDERED: MAGNESIUM SULF 50% (8.12 MEQ/2 ML-1 GM VIAL) IVPB ONE (10:20)
[2023-05-14] MEDS: LACTULOSE 20 GM/30 ML UDC (FOR ORAL USE ONLY) PO SCH ×2 (11:12→21:27)
[2023-05-14] MEDS: ATORVASTATIN CA 10 MG TABLET (FP) PO SCH (21:29)
[2023-05-14] MEDS: MELATONIN 1 MG TABLET PO SCH (21:30)
[2023-05-14] MEDS: LIDOCAINE PATCH REMOVAL MC SCH (21:46)
[2023-05-15] MEDS: GABAPENTIN 100 MG CAPSULE PO SCH ×3 (05:46→22:24)
[2023-05-15] MEDS: GABAPENTIN 400 MG CAPSULE PO SCH ×3 (05:46→22:24)
[2023-05-15] MEDS: LACTULOSE 20 GM/30 ML UDC (FOR ORAL USE ONLY) PO SCH ×2 (09:51→22:25)
[2023-05-15] MEDS: LIDOCAINE 4% PATCH TP SCH (09:52)
[2023-05-15] MEDS: ASCORBIC ACID 250 MG TABLET (FP) PO SCH ×2 (09:52→22:24)
[2023-05-15] MEDS: LACTOBACILLUS ACIDOPHILUS 1 TABLET PO SCH ×2 (09:52→22:24)
[2023-05-15] MEDS: CINACALCET HCL 30 MG TAB (FP) PO SCH (09:52)
[2023-05-15] MEDS: PANTOPRAZOLE 40 MG TABLET PO SCH (09:52)
[2023-05-15] MEDS ORDERED: IRON SUCROSE INJECTION 200 MG in SODIUM CHLORIDE 90 ML IVPB ONE (10:00)
[2023-05-15 10:32] LABS: POTASSIUM 3.9 mmol/L (3.5-5.1)
[2023-05-15 10:35] LABS: ALBUMIN 2.6 g/dl (3.4-5.0); CALCIUM 7.8 mg/dL (8.5-10.1)
[2023-05-15 10:36] LABS: BLOOD UREA NITROGEN 8.8 mg/dL (7-18)
[2023-05-15 10:39] LABS: CREATININE 0.8 mg/dL (0.55-1.3)
[2023-05-15 10:40] LABS: BILIRUBIN,TOTAL 0.5 mg/dL (0.2-1); TOT PROT 5.4 g/dl (6.4-8.2)
[2023-05-15] MEDS ORDERED: traMADol HCL 50 MG TABLET PO PRN (14:04)
[2023-05-15] MEDS ORDERED: ACETAMINOPHEN 1000 MG/100 ML BAG IVPB ONE (19:40)
[2023-05-15] MEDS: ATORVASTATIN CA 10 MG TABLET (FP) PO SCH (22:24)
[2023-05-15] MEDS: MELATONIN 1 MG TABLET PO SCH (22:24)
[2023-05-15] MEDS: LIDOCAINE PATCH REMOVAL MC SCH (22:25)
[2023-05-16] MEDS: GABAPENTIN 400 MG CAPSULE PO SCH ×3 (05:33→21:32)
[2023-05-16] MEDS: GABAPENTIN 100 MG CAPSULE PO SCH ×3 (05:33→21:31)
[2023-05-16] MEDS ORDERED: IRON SUCROSE INJECTION 200 MG in SODIUM CHLORIDE 90 ML IVPB ONE (10:00)
[2023-05-16] MEDS: LACTULOSE 20 GM/30 ML UDC (FOR ORAL USE ONLY) PO SCH ×2 (10:02→21:33)
[2023-05-16] MEDS: ASCORBIC ACID 250 MG TABLET (FP) PO SCH ×2 (10:03→21:31)
[2023-05-16] MEDS: PANTOPRAZOLE 40 MG TABLET PO SCH (10:03)
[2023-05-16] MEDS: CINACALCET HCL 30 MG TAB (FP) PO SCH (10:03)
[2023-05-16] MEDS: LACTOBACILLUS ACIDOPHILUS 1 TABLET PO SCH ×2 (10:03→21:32)
[2023-05-16] MEDS: LIDOCAINE 4% PATCH TP SCH (10:03)
[2023-05-16 10:45] LABS: BASO % 1.1 % (0-2.0); EOS % 1.5 % (0-4.5); HEMATOCRIT 25.3 % (32.4-45.2); HEMOGLOBIN 8.2 GM/dL (10.7-15.3); LYMPH % 12.4 % (8-40); MCH 26.3 pg (25.7-33.7); MCHC 32.4 g/dl (32.0-36.0); MEAN CELL VOLUME 81.2 fl (80-96); MEAN PLT VOLUME 7.7 fl (7.5-11.1); MONO % 13.2 % (3.8-10.2); NEUT % 71.8 % (42.8-82.8); PLATELET COUNT 276 10^3/uL (134-434); RBC 3.12 M/mm3 (3.60-5.2); RDW 19.9 % (11.6-15.6); WHITE BLOOD COUNT 4.7 K/mm3 (4.0-10.0)
[2023-05-16] MEDS: MINERAL OIL/PET HY-PHL TOPICAL OINTMENT 454 GM JAR TP SCH (12:48)
[2023-05-16] MEDS ORDERED: guaiFENesin 200 MG/10 ML 10 ML UNIT-DOSE CUPS PO PRN (18:22)
[2023-05-16] MEDS: MELATONIN 1 MG TABLET PO SCH (21:31)
[2023-05-16] MEDS: ATORVASTATIN CA 10 MG TABLET (FP) PO SCH (21:32)
[2023-05-16] MEDS: LIDOCAINE PATCH REMOVAL MC SCH (21:33)
[2023-05-17] MEDS: GABAPENTIN 100 MG CAPSULE PO SCH ×3 (05:43→22:21)
[2023-05-17] MEDS: GABAPENTIN 400 MG CAPSULE PO SCH ×3 (05:43→22:20)
[2023-05-17 08:31] LABS: BASO % 0.9 % (0-2.0); EOS % 1.8 % (0-4.5); HEMATOCRIT 23.7 % (32.4-45.2); HEMOGLOBIN 7.7 GM/dL (10.7-15.3); LYMPH % 15.5 % (8-40); MCH 26.3 pg (25.7-33.7); MCHC 32.5 g/dl (32.0-36.0); MEAN PLT VOLUME 7.2 fl (7.5-11.1); MONO % 15.9 % (3.8-10.2); NEUT % 65.9 % (42.8-82.8); PLATELET COUNT 258 10^3/uL (134-434); RBC 2.92 M/mm3 (3.60-5.2); RDW 20.3 % (11.6-15.6); WHITE BLOOD COUNT 4.1 K/mm3 (4.0-10.0)
[2023-05-17 08:35] LABS: INR 1.27 (0.83-1.09); PROTHROMBIN TIME (PATIENT) 14.7 SEC (9.7-13.0)
[2023-05-17 08:51] LABS: POTASSIUM 4.1 mmol/L (3.5-5.1)
[2023-05-17 08:53] LABS: CALCIUM 8.7 mg/dL (8.5-10.1)
[2023-05-17 08:54] LABS: ALBUMIN 2.6 g/dl (3.4-5.0); BLOOD UREA NITROGEN 7.9 mg/dL (7-18); MAGNESIUM 1.8 mg/dL (1.8-2.4)
[2023-05-17 08:57] LABS: CREATININE 0.7 mg/dL (0.55-1.3)
[2023-05-17 08:59] LABS: BILIRUBIN,TOTAL 0.9 mg/dL (0.2-1); TOT PROT 5.4 g/dl (6.4-8.2)
[2023-05-17] MEDS ORDERED: PEG 3350/NA SULF BICARB CL/KCL 4000 ML SOLN.RECON PO ONE (10:00)
[2023-05-17] MEDS: LACTULOSE 20 GM/30 ML UDC (FOR ORAL USE ONLY) PO SCH ×2 (10:33→22:19)
[2023-05-17] MEDS: LIDOCAINE 4% PATCH TP SCH (10:34)
[2023-05-17] MEDS: MINERAL OIL/PET HY-PHL TOPICAL OINTMENT 454 GM JAR TP SCH (10:34)
[2023-05-17] MEDS: PANTOPRAZOLE 40 MG TABLET PO SCH (10:34)
[2023-05-17] MEDS: ASCORBIC ACID 250 MG TABLET (FP) PO SCH ×2 (10:34→22:21)
[2023-05-17] MEDS: CINACALCET HCL 30 MG TAB (FP) PO SCH (10:34)
[2023-05-17] MEDS: LACTOBACILLUS ACIDOPHILUS 1 TABLET PO SCH ×2 (10:34→22:21)
[2023-05-17] MEDS ORDERED: BISACODYL 5 MG TABLET.DR (FP) PO ONE (20:00)
[2023-05-17] MEDS: MELATONIN 1 MG TABLET PO SCH (22:20)
[2023-05-17] MEDS: ATORVASTATIN CA 10 MG TABLET (FP) PO SCH (22:20)
[2023-05-17] MEDS: LIDOCAINE PATCH REMOVAL MC SCH (22:21)
[2023-05-18] MEDS: GABAPENTIN 100 MG CAPSULE PO SCH ×3 (06:36→22:02)
[2023-05-18] MEDS: GABAPENTIN 400 MG CAPSULE PO SCH ×3 (06:36→22:01)
[2023-05-18 09:10] LABS: BASO % 0.9 % (0-2.0); EOS % 3.2 % (0-4.5); HEMATOCRIT 25.9 % (32.4-45.2); HEMOGLOBIN 8.2 GM/dL (10.7-15.3); INR 1.19 (0.83-1.09); MCHC 31.5 g/dl (32.0-36.0); MEAN CELL VOLUME 82.5 fl (80-96); MEAN PLT VOLUME 7.4 fl (7.5-11.1); MONO % 17.8 % (3.8-10.2); NEUT % 51.1 % (42.8-82.8); PLATELET COUNT 282 10^3/uL (134-434); PROTHROMBIN TIME (PATIENT) 13.8 SEC (9.7-13.0); RBC 3.14 M/mm3 (3.60-5.2); WHITE BLOOD COUNT 2.7 K/mm3 (4.0-10.0)
[2023-05-18 09:22] LABS: POTASSIUM 3.9 mmol/L (3.5-5.1)
[2023-05-18 09:30] LABS: CALCIUM 8.6 mg/dL (8.5-10.1)
[2023-05-18 09:31] LABS: ALBUMIN 2.7 g/dl (3.4-5.0); BLOOD UREA NITROGEN 6.8 mg/dL (7-18); MAGNESIUM 1.8 mg/dL (1.8-2.4)
[2023-05-18 09:34] LABS: CREATININE 0.8 mg/dL (0.55-1.3)
[2023-05-18 09:36] LABS: BILIRUBIN,TOTAL 0.9 mg/dL (0.2-1); TOT PROT 5.6 g/dl (6.4-8.2)
[2023-05-18 10:16] LABS: ANISOCYTOSIS 2+; MACROCYTOSIS 1+
[2023-05-18] MEDS ORDERED: KETAMINE HCL 200 MG/20 ML VIAL ONE (11:07)
[2023-05-18] MEDS: CINACALCET HCL 30 MG TAB (FP) PO SCH (14:55)
[2023-05-18] MEDS: LACTULOSE 20 GM/30 ML UDC (FOR ORAL USE ONLY) PO SCH ×2 (14:55→22:01)
[2023-05-18] MEDS: LACTOBACILLUS ACIDOPHILUS 1 TABLET PO SCH ×2 (14:55→22:01)
[2023-05-18] MEDS: PANTOPRAZOLE 40 MG TABLET PO SCH (14:55)
[2023-05-18] MEDS: ASCORBIC ACID 250 MG TABLET (FP) PO SCH ×2 (14:55→22:02)
[2023-05-18] MEDS: MINERAL OIL/PET HY-PHL TOPICAL OINTMENT 454 GM JAR TP SCH (14:56)
[2023-05-18] MEDS: LIDOCAINE 4% PATCH TP SCH (20:09)
[2023-05-18] MEDS: ATORVASTATIN CA 10 MG TABLET (FP) PO SCH (22:01)
[2023-05-18] MEDS: MELATONIN 1 MG TABLET PO SCH (22:02)
[2023-05-18] MEDS: LIDOCAINE PATCH REMOVAL MC SCH (22:02)
[2023-05-19] MEDS: GABAPENTIN 400 MG CAPSULE PO SCH ×2 (06:22→13:44)
[2023-05-19] MEDS: GABAPENTIN 100 MG CAPSULE PO SCH ×2 (06:22→13:44)
[2023-05-19 08:04] LABS: EOS % 3.1 % (0-4.5); HEMATOCRIT 26.7 % (32.4-45.2); HEMOGLOBIN 8.6 GM/dL (10.7-15.3); LYMPH % 25.8 % (8-40); MCH 26.7 pg (25.7-33.7); MCHC 32.1 g/dl (32.0-36.0); MEAN CELL VOLUME 83.1 fl (80-96); MEAN PLT VOLUME 7.2 fl (7.5-11.1); MONO % 11.8 % (3.8-10.2); NEUT % 58.3 % (42.8-82.8); PLATELET COUNT 272 10^3/uL (134-434); RBC 3.21 M/mm3 (3.60-5.2); RDW 22.5 % (11.6-15.6); WHITE BLOOD COUNT 3.2 K/mm3 (4.0-10.0)
[2023-05-19 08:25] LABS: ALBUMIN 2.7 g/dl (3.4-5.0); BLOOD UREA NITROGEN 8.2 mg/dL (7-18); MAGNESIUM 1.8 mg/dL (1.8-2.4)
[2023-05-19 08:28] LABS: CREATININE 0.8 mg/dL (0.55-1.3)
[2023-05-19 08:29] LABS: BILIRUBIN,TOTAL 0.5 mg/dL (0.2-1); TOT PROT 5.7 g/dl (6.4-8.2)
[2023-05-19] MEDS: PANTOPRAZOLE 40 MG TABLET PO SCH (10:19)
[2023-05-19] MEDS: LACTOBACILLUS ACIDOPHILUS 1 TABLET PO SCH (10:19)
[2023-05-19] MEDS: ASCORBIC ACID 250 MG TABLET (FP) PO SCH (10:19)
[2023-05-19] MEDS: LACTULOSE 20 GM/30 ML UDC (FOR ORAL USE ONLY) PO SCH (10:19)
[2023-05-19] MEDS: MINERAL OIL/PET HY-PHL TOPICAL OINTMENT 454 GM JAR TP SCH (10:19)
[2023-05-19] MEDS: CINACALCET HCL 30 MG TAB (FP) PO SCH (10:19)
[2023-05-19] MEDS: LIDOCAINE 4% PATCH TP SCH (10:19)
[2023-05-19 13:17] VITALS: RESP 18
[2023-05-19 18:12] VITALS: BP 144/51; PULSE 70; TEMP 98.4
== END 2023-05-19 20:25 | DRG 811 ==
LOC: JER 09:53 → JERBED 14:06 → OBSVTOIN 15:22 → J7W 19:00
PROVIDERS: ADMIT Internal Medicine; ATTEND Nurse Practitioner Family
PROC: 30233N1 Transfusion of Nonautologous Red Blood Cells into Peripheral Vein, Percutaneous Approach (ICD-10-PCS; principal; 2023-05-13)
PROC: 0DB98ZX Excision of Duodenum, Via Natural or Artificial Opening Endoscopic, Diagnostic (ICD-10-PCS; 2023-05-18)
PROC: 0DB68ZX Excision of Stomach, Via Natural or Artificial Opening Endoscopic, Diagnostic (ICD-10-PCS; 2023-05-18)
PROC: 0DJD8ZZ Inspection of Lower Intestinal Tract, Via Natural or Artificial Opening Endoscopic (ICD-10-PCS; 2023-05-18)
DX: D50.9 Iron deficiency anemia, unspecified (principal); K56.2 Volvulus; E87.1 Hypo-osmolality and hyponatremia; N39.0 Urinary tract infection, site not specified; J84.9 Interstitial pulmonary disease, unspecified; C90.01 Multiple myeloma in remission; I82.431 Acute embolism and thrombosis of right popliteal vein; R10.12 Left upper quadrant pain; J44.9 Chronic obstructive pulmonary disease, unspecified; K21.9 Gastro-esophageal reflux disease without esophagitis; E78.5 Hyperlipidemia, unspecified; K44.9 Diaphragmatic hernia without obstruction or gangrene; K29.60 Other gastritis without bleeding; K57.30 Diverticulosis of large intestine without perforation or abscess without bleeding; I11.0 Hypertensive heart disease with heart failure; I50.9 Heart failure, unspecified; Z89.611 Acquired absence of right leg above knee
CPT/HCPCS: 0241U-QW; 36415; 36430; 71045-TC-FY; 71260-TC; 74177-TC; 74240-TC-FY; 80053; 81003; 82248; 82272; 82550; 82553; 82570; 82607; 82728; 82746; 82803; 83010; 83540; 83550; 83605; 83615; 83735; 83880; 83930; 83935; 84100; 84300; 84484; 85025; 85027; 85045; 85610; 85730; 86850; 86900; 86901; 86922; 87040; 93005; 93010; 93306-TC; 97162-GP; 99285-25; G0378; J1756; P9058; Q9967

== ENCOUNTER 2023-07-20 10:21 | Inpatient (IN) | payer OTHER ==
[2023-07-20] MEDS ORDERED: predniSONE 20 MG TABLET (UD) ONE (11:25)
[2023-07-20] MEDS ORDERED: AZITHROMYCIN 500 MG TABLET ONE (11:25)
[2023-07-20] MEDS: AZITHROMYCIN 250 MG TABLET PO ONE (11:26)
[2023-07-20] MEDS: predniSONE 20 MG TABLET (UD) PO ONE (11:26)
[2023-07-20] MEDS: ALBUTEROL SO4 2.5/IPRATROPIUM 0.5 INH SOL 3 ML VIAL.NEB. NEB SCH ×2 (11:56→18:54)
[2023-07-20] MEDS ORDERED: ALBUTEROL SO4 2.5/IPRATROPIUM 0.5 INH SOL 3 ML VIAL.NEB. NEB ONE ×4 (11:57→21:30)
[2023-07-20] MEDS ORDERED: ALBUTEROL SO4 HFA INHALER IH PRN (17:08)
[2023-07-20] MEDS ORDERED: MAG HYDROX/AL HYDROX/SIMETH 30 ML UNIT-DOSE CUP PO PRN (17:08)
[2023-07-20] MEDS ORDERED: ACETAMINOPHEN 325 MG TABLET (FP) PO PRN (17:08)
[2023-07-20 17:25] LABS: HEMOGLOBIN 12.3 GM/dL (10.7-15.3); LYMPH % 2.8 % (8-40); MCH 30.5 pg (25.7-33.7); MCHC 34.1 g/dl (32.0-36.0); MEAN CELL VOLUME 89.5 fl (80-96); MONO % 2.9 % (3.8-10.2); NEUT % 94.3 % (42.8-82.8); PLATELET COUNT 166 10^3/uL (134-434); RBC 4.02 M/mm3 (3.60-5.2); RDW 15.9 % (11.6-15.6); WHITE BLOOD COUNT 3.3 K/mm3 (4.0-10.0)
[2023-07-20] MEDS: DEXTROSE 5%-LACTATED RINGERS 1,000 ML IV SCH (17:47)
[2023-07-20 17:53] LABS: ALBUMIN 3.4 g/dl (3.4-5.0); BLOOD UREA NITROGEN 19.8 mg/dL (7-18)
[2023-07-20 17:56] LABS: CREATININE 1.1 mg/dL (0.55-1.3)
[2023-07-20 17:57] LABS: BILIRUBIN,TOTAL 0.4 mg/dL (0.2-1); TOT PROT 7.2 g/dl (6.4-8.2)
[2023-07-20 18:03] LABS: ANISOCYTOSIS 1+; MACROCYTOSIS 0; OVALOCYTE 1+
[2023-07-20] MEDS: oxyCODONE HCL 5 MG TABLET PO SCH (18:52)
[2023-07-20] MEDS: GABAPENTIN 400 MG CAPSULE PO SCH (18:53)
[2023-07-20] MEDS: LACTOBACILLUS ACIDOPHILUS 1 TABLET PO SCH (21:28)
[2023-07-20] MEDS ORDERED: FAMOTIDINE 20 MG TABLET ONE (21:30)
[2023-07-20] MEDS ORDERED: APIXABAN 5 MG TABLET ONE (21:30)
[2023-07-20] MEDS ORDERED: ATORVASTATIN CA 10 MG TABLET (FP) ONE (21:30)
[2023-07-20] MEDS ORDERED: LACTULOSE 20 GM/30 ML UDC (FOR ORAL USE ONLY) ONE (21:30)
[2023-07-20] MEDS ORDERED: ASCORBIC ACID 250 MG TABLET (FP) ONE (21:30)
[2023-07-20] MEDS: ATORVASTATIN CA 10 MG TABLET (FP) PO SCH (21:31)
[2023-07-20] MEDS: LACTULOSE 20 GM/30 ML UDC (FOR ORAL USE ONLY) PO SCH (21:31)
[2023-07-20] MEDS: LIDOCAINE PATCH REMOVAL MC SCH (21:31)
[2023-07-20] MEDS: APIXABAN 5 MG TABLET PO SCH (21:31)
[2023-07-20] MEDS: ASCORBIC ACID 250 MG TABLET (FP) PO SCH (21:32)
[2023-07-20] MEDS: FAMOTIDINE 20 MG TABLET PO SCH (21:32)
[2023-07-20] MEDS: MELATONIN 1 MG TABLET PO SCH (22:20)
[2023-07-21] MEDS ORDERED: GABAPENTIN 400 MG CAPSULE ONE (03:56)
[2023-07-21 07:56] LABS: BASO % 0.2 % (0-2.0); HEMATOCRIT 33.1 % (32.4-45.2); HEMOGLOBIN 11.5 GM/dL (10.7-15.3); MCHC 34.7 g/dl (32.0-36.0); MEAN CELL VOLUME 89.6 fl (80-96); MEAN PLT VOLUME 7.4 fl (7.5-11.1); MONO % 9.6 % (3.8-10.2); NEUT % 80.2 % (42.8-82.8); PLATELET COUNT 161 10^3/uL (134-434); RBC 3.69 M/mm3 (3.60-5.2); RDW 15.7 % (11.6-15.6); WHITE BLOOD COUNT 4.9 K/mm3 (4.0-10.0)
[2023-07-21 08:28] LABS: POTASSIUM 4.2 mmol/L (3.5-5.1)
[2023-07-21 08:31] LABS: CALCIUM 9.3 mg/dL (8.5-10.1)
[2023-07-21 08:32] LABS: ALBUMIN 3.1 g/dl (3.4-5.0); BLOOD UREA NITROGEN 25.3 mg/dL (7-18); MAGNESIUM 1.9 mg/dL (1.8-2.4)
[2023-07-21 08:35] LABS: CREATININE 0.9 mg/dL (0.55-1.3)
[2023-07-21 08:36] LABS: BILIRUBIN,TOTAL 0.3 mg/dL (0.2-1)
[2023-07-21 08:37] LABS: TOT PROT 6.3 g/dl (6.4-8.2)
[2023-07-21] MEDS: LIDOCAINE 4% PATCH TP SCH (08:57)
[2023-07-21] MEDS: PANTOPRAZOLE 40 MG TABLET PO SCH (08:57)
[2023-07-21] MEDS: DOCUSATE SODIUM 100 MG CAPSULE (FP) PO SCH (08:58)
[2023-07-21] MEDS: ASPIRIN COATED 81 MG TABLET.EC PO SCH (08:58)
[2023-07-21] MEDS: FUROSEMIDE 20 MG TABLET (FP) PO SCH (08:58)
[2023-07-21] MEDS: FERROUS SO4 325 MG TABLET (FP) PO SCH (08:59)
[2023-07-21] MEDS: CINACALCET HCL 30 MG TAB (FP) PO SCH (09:00)
[2023-07-21] MEDS ORDERED: AZITHROMYCIN IVPB 500 MG/250 ML BAG IVPB ONE (09:01)
[2023-07-21] MEDS ORDERED: ENOXAPARIN NA (PORCINE) 40 MG/0.4 ML DISP.SYRIN SQ SCH (10:00)
[2023-07-21] MEDS: AZITHROMYCIN IVPB 250 MG in DEXTROSE 5%-WATER - 250 ML IVPB SCH (10:13)
[2023-07-21] MEDS ORDERED: oxyCODONE HCL 5 MG TABLET ONE ×2 (13:01→17:36)
[2023-07-21] MEDS ORDERED: ALBUTEROL SO4 2.5/IPRATROPIUM 0.5 INH SOL 3 ML VIAL.NEB. NEB ONE (13:01)
[2023-07-21] MEDS ORDERED: DEXTROMETHORPHAN/PROMETHAZINE 15 MG/6.25 MG/5 ML SYRUP PO PRN (15:24)
[2023-07-21] MEDS ORDERED: CEFEPIME 1 GM/100 ML BAG IVPB ONE ×2 (17:35→21:17)
[2023-07-21] MEDS: CEFEPIME 1 GM in DEXTROSE 5%-WATER - 50 ML IVPB SCH (17:46)
[2023-07-21] MEDS ORDERED: OSELTAMIVIR PHOSPHATE 75 MG CAPSULE ONE (19:20)
[2023-07-21] MEDS: OSELTAMIVIR PHOSPHATE 30 MG CAPSULE PO SCH (19:23)
[2023-07-21] MEDS ORDERED: OSELTAMIVIR PHOSPHATE 30 MG CAPSULE ONE (19:23)
[2023-07-21] MEDS ORDERED: APIXABAN 5 MG TABLET ONE (21:15)
[2023-07-21] MEDS ORDERED: FAMOTIDINE 20 MG TABLET ONE (21:15)
[2023-07-21] MEDS ORDERED: ASCORBIC ACID 250 MG TABLET (FP) ONE (21:15)
[2023-07-21] MEDS ORDERED: LACTULOSE 20 GM/30 ML UDC (FOR ORAL USE ONLY) ONE (21:16)
[2023-07-21] MEDS ORDERED: ATORVASTATIN CA 10 MG TABLET (FP) ONE (21:16)
[2023-07-22] MEDS ORDERED: oxyCODONE HCL 5 MG TABLET ONE ×3 (00:01→16:49)
[2023-07-22] MEDS ORDERED: GABAPENTIN 400 MG CAPSULE ONE (01:25)
[2023-07-22] MEDS ORDERED: PANTOPRAZOLE 40 MG TABLET PO ONE (06:40)
[2023-07-22 08:56] LABS: BASO % 0.3 % (0-2.0); EOS % 0.3 % (0-4.5); HEMATOCRIT 37.2 % (32.4-45.2); HEMOGLOBIN 12.2 GM/dL (10.7-15.3); LYMPH % 10.9 % (8-40); MCH 29.8 pg (25.7-33.7); MCHC 32.7 g/dl (32.0-36.0); MEAN CELL VOLUME 91.1 fl (80-96); MEAN PLT VOLUME 7.2 fl (7.5-11.1); MONO % 6.4 % (3.8-10.2); NEUT % 82.1 % (42.8-82.8); PLATELET COUNT 165 10^3/uL (134-434); RBC 4.08 M/mm3 (3.60-5.2); RDW 15.5 % (11.6-15.6); WHITE BLOOD COUNT 4.1 K/mm3 (4.0-10.0)
[2023-07-22] MEDS ORDERED: LIDOCAINE 4% PATCH TP ONE (09:07)
[2023-07-22 09:13] LABS: POTASSIUM 4.8 mmol/L (3.5-5.1)
[2023-07-22 09:16] LABS: ALBUMIN 3.1 g/dl (3.4-5.0); BLOOD UREA NITROGEN 17.2 mg/dL (7-18); CALCIUM 9.7 mg/dL (8.5-10.1)
[2023-07-22 09:19] LABS: CREATININE 0.9 mg/dL (0.55-1.3)
[2023-07-22 09:21] LABS: BILIRUBIN,TOTAL 0.4 mg/dL (0.2-1); TOT PROT 6.3 g/dl (6.4-8.2)
[2023-07-22] MEDS ORDERED: FUROSEMIDE 20 MG TABLET (FP) ONE (09:24)
[2023-07-22] MEDS ORDERED: CEFEPIME 1 GM/100 ML BAG IVPB ONE ×2 (10:46→21:11)
[2023-07-22] MEDS ORDERED: LEVALBUTEROL HCL 0.63 MG/3 ML VIAL.NEB. IH ONE ×2 (15:14→19:55)
[2023-07-22] MEDS: LEVALBUTEROL HCL 0.63 MG/3 ML VIAL.NEB. IH SCH (16:48)
[2023-07-22] MEDS ORDERED: GABAPENTIN 100 MG CAPSULE ONE (16:49)
[2023-07-22] MEDS ORDERED: APIXABAN 5 MG TABLET ONE (21:09)
[2023-07-22] MEDS ORDERED: MELATONIN 5 MG TABLETS ONE (21:10)
[2023-07-22] MEDS ORDERED: ATORVASTATIN CA 10 MG TABLET (FP) ONE (21:10)
[2023-07-22] MEDS ORDERED: LACTULOSE 20 GM/30 ML UDC (FOR ORAL USE ONLY) ONE (21:10)
[2023-07-22] MEDS ORDERED: FAMOTIDINE 20 MG TABLET ONE (21:10)
[2023-07-22] MEDS ORDERED: ASCORBIC ACID 250 MG TABLET (FP) ONE (21:10)
[2023-07-23] MEDS: methylPREDNISolone NA SUCC 40 MG/1 ML VIAL IVPUSH SCH (13:01)
[2023-07-23 14:59] VITALS: BMI 17.1
[2023-07-24 09:20] LABS: POTASSIUM 4.5 mmol/L (3.5-5.1)
[2023-07-24 09:23] LABS: ALBUMIN 2.8 g/dl (3.4-5.0); CALCIUM 9.7 mg/dL (8.5-10.1)
[2023-07-24 09:24] LABS: BLOOD UREA NITROGEN 23.9 mg/dL (7-18)
[2023-07-24 09:26] LABS: CREATININE 0.8 mg/dL (0.55-1.3)
[2023-07-24 09:28] LABS: BILIRUBIN,TOTAL 0.4 mg/dL (0.2-1); TOT PROT 6.2 g/dl (6.4-8.2)
[2023-07-25 15:09] VITALS: RESP 18
[2023-07-25 22:10] VITALS: BP 138/86; PULSE 85; TEMP 98.8
== END 2023-07-25 22:53 | DRG 194 ==
LOC: JER 10:21 → JERBED 17:55 → OBSVTOIN 21:59 → J8W 07-22 23:38
PROVIDERS: ADMIT Internal Medicine
DX: J10.1 Influenza due to other identified influenza virus with other respiratory manifestations (principal); C90.01 Multiple myeloma in remission; J44.1 Chronic obstructive pulmonary disease with (acute) exacerbation; J98.11 Atelectasis; E87.1 Hypo-osmolality and hyponatremia; J84.9 Interstitial pulmonary disease, unspecified; E78.5 Hyperlipidemia, unspecified; K21.9 Gastro-esophageal reflux disease without esophagitis; K44.9 Diaphragmatic hernia without obstruction or gangrene; I11.0 Hypertensive heart disease with heart failure; I50.9 Heart failure, unspecified; K57.90 Diverticulosis of intestine, part unspecified, without perforation or abscess without bleeding; K72.90 Hepatic failure, unspecified without coma; R21 Rash and other nonspecific skin eruption; Z89.611 Acquired absence of right leg above knee; Z86.718 Personal history of other venous thrombosis and embolism
CPT/HCPCS: 0241U-QW; 36415; 71045-TC-FY; 80053; 83735; 83880; 84100; 84439; 84443; 84480; 84481; 84482; 84484; 85025; 87040; 87635; 93005; 93010; 94640; 99285-25; G0378

== ENCOUNTER 2023-11-18 17:34 | Inpatient (IN) | payer OTHER ==
[2023-11-18 19:19] LABS: BASO % 0.6 % (0-2.0); EOS % 2.7 % (0-4.5); HEMATOCRIT 39.6 % (32.4-45.2); HEMOGLOBIN 13.5 GM/dL (10.7-15.3); LYMPH % 18.2 % (8-40); MCH 30.7 pg (25.7-33.7); MEAN CELL VOLUME 90.3 fl (80-96); MEAN PLT VOLUME 7.4 fl (7.5-11.1); MONO % 11.3 % (3.8-10.2); NEUT % 67.2 % (42.8-82.8); PLATELET COUNT 277 10^3/uL (134-434); RBC 4.38 M/mm3 (3.60-5.2); RDW 13.1 % (11.6-15.6)
[2023-11-18 19:32] LABS: ACTIVATED PTT 42.2 SECONDS (25.2-36.5); INR 1.62 (0.83-1.09); PROTHROMBIN TIME (PATIENT) 18.1 SEC (9.7-13.0)
[2023-11-18 19:42] LABS: ALBUMIN 3.6 g/dl (3.4-5.0); BLOOD UREA NITROGEN 15.9 mg/dL (7-18); CALCIUM 8.7 mg/dL (8.5-10.1)
[2023-11-18 19:45] LABS: CREATININE 0.8 mg/dL (0.55-1.3)
[2023-11-18 19:47] LABS: BILIRUBIN,TOTAL 0.9 mg/dL (0.2-1)
[2023-11-18 19:48] LABS: VENOUS BASE EXCESS 2.9 mmol/L (-2-2); VENOUS O2 SATURATION 84.3 % (70-80); VENOUS PCO2 57.4 mmHg (38-52); VENOUS PH 7.339 (7.310-7.410)
[2023-11-18 20:16] LABS: EPI CELLS 17 /uL (0-25.1); HYALINE CASTS 5 /uL (0-3.1); URINE APPEARANCE TURBID; URINE BACTERIA >9,000 /uL (0-1359); URINE BILIRUBIN NEGATIVE (NEGATIVE); URINE COLOR YELLOW; URINE GLUCOSE (UA) NEGATIVE (NEGATIVE); URINE KETONE NEGATIVE (NEGATIVE); URINE LEUK ESTERASE 3+ (NEGATIVE); URINE NITRITE NEGATIVE (NEGATIVE); URINE PROTEIN 2+ (NEGATIVE); URINE RBC 201 /uL (0-23.9); URINE UROBILINOGEN 0.2 mg/dL (0.2-1.0); URINE WBC 10845 /uL (0-25.8)
[2023-11-18] MEDS: SODIUM CHLORIDE 0.9% 500 ML INFUS.BAG IV ONE (21:04)
[2023-11-18] MEDS: LINEZOLID 600 MG PREMIX BAG 600 MG in PREMIX 300 IVPB ONE (21:41)
[2023-11-19 03:14] VITALS: BMI 30.9
[2023-11-19] MEDS ORDERED: ALBUTEROL SO4 HFA INHALER IH PRN (06:00)
[2023-11-19] MEDS: CINACALCET HCL 30 MG TAB (FP) PO SCH ×2 (06:25→10:46)
[2023-11-19] MEDS: propRANOLol HCL 10 MG TABLET PO SCH (06:25)
[2023-11-19 08:32] LABS: BASO % 0.6 % (0-2.0); HEMATOCRIT 37.8 % (32.4-45.2); HEMOGLOBIN 12.9 GM/dL (10.7-15.3); LYMPH % 14.4 % (8-40); MCH 30.8 pg (25.7-33.7); MEAN CELL VOLUME 90.6 fl (80-96); MEAN PLT VOLUME 7.4 fl (7.5-11.1); MONO % 11.5 % (3.8-10.2); NEUT % 70.5 % (42.8-82.8); PLATELET COUNT 233 10^3/uL (134-434); RBC 4.17 M/mm3 (3.60-5.2); RDW 13.2 % (11.6-15.6); WHITE BLOOD COUNT 6.3 K/mm3 (4.0-10.0)
[2023-11-19 08:42] LABS: POTASSIUM 3.7 mmol/L (3.5-5.1)
[2023-11-19 08:46] LABS: ALBUMIN 3.3 g/dl (3.4-5.0); BLOOD UREA NITROGEN 14.4 mg/dL (7-18); MAGNESIUM 1.6 mg/dL (1.8-2.4)
[2023-11-19 08:49] LABS: CREATININE 0.7 mg/dL (0.55-1.3)
[2023-11-19 08:50] LABS: BILIRUBIN,TOTAL 0.8 mg/dL (0.2-1); TOT PROT 6.5 g/dl (6.4-8.2)
[2023-11-19] MEDS: ASPIRIN COATED 81 MG TABLET.EC PO SCH (10:44)
[2023-11-19] MEDS: APIXABAN 5 MG TABLET PO SCH (10:45)
[2023-11-19] MEDS: MAGNESIUM OXIDE 400 MG TABLET (FP) PO ONE (16:00)
[2023-11-19] MEDS: GABAPENTIN 400 MG CAPSULE PO SCH (22:57)
[2023-11-19] MEDS: GABAPENTIN 100 MG CAPSULE PO SCH (22:57)
[2023-11-19] MEDS: ATORVASTATIN CA 10 MG TABLET (FP) PO SCH (22:57)
[2023-11-20 08:10] LABS: POTASSIUM 3.8 mmol/L (3.5-5.1)
[2023-11-20 08:20] LABS: ALBUMIN 3.2 g/dl (3.4-5.0); BLOOD UREA NITROGEN 13.1 mg/dL (7-18); CREATININE 0.6 mg/dL (0.55-1.3)
[2023-11-20 08:21] LABS: CALCIUM 8.8 mg/dL (8.5-10.1)
[2023-11-20 08:22] LABS: TOT PROT 5.8 g/dl (6.4-8.2)
[2023-11-20 08:37] LABS: BASO % 0.4 % (0-2.0); EOS % 1.6 % (0-4.5); HEMATOCRIT 35.7 % (32.4-45.2); HEMOGLOBIN 12.2 GM/dL (10.7-15.3); LYMPH % 14.6 % (8-40); MCH 30.7 pg (25.7-33.7); MCHC 34.3 g/dl (32.0-36.0); MEAN CELL VOLUME 89.5 fl (80-96); MEAN PLT VOLUME 7.4 fl (7.5-11.1); MONO % 9.5 % (3.8-10.2); NEUT % 73.9 % (42.8-82.8); PLATELET COUNT 221 10^3/uL (134-434); RBC 3.99 M/mm3 (3.60-5.2); RDW 13.2 % (11.6-15.6); WHITE BLOOD COUNT 6.2 K/mm3 (4.0-10.0)
[2023-11-20] MEDS: SODIUM CHLORIDE 1,000 ML IV SCH (10:51)
[2023-11-21 09:01] LABS: BASO % 0.6 % (0-2.0); EOS % 2.5 % (0-4.5); HEMATOCRIT 39.2 % (32.4-45.2); HEMOGLOBIN 13.1 GM/dL (10.7-15.3); MCH 30.5 pg (25.7-33.7); MCHC 33.3 g/dl (32.0-36.0); MEAN CELL VOLUME 91.6 fl (80-96); MEAN PLT VOLUME 7.3 fl (7.5-11.1); MONO % 10.5 % (3.8-10.2); NEUT % 70.4 % (42.8-82.8); PLATELET COUNT 202 10^3/uL (134-434); RBC 4.27 M/mm3 (3.60-5.2); WHITE BLOOD COUNT 5.7 K/mm3 (4.0-10.0)
[2023-11-21 09:23] LABS: POTASSIUM 3.8 mmol/L (3.5-5.1)
[2023-11-21 09:30] LABS: ALBUMIN 3.2 g/dl (3.4-5.0); BLOOD UREA NITROGEN 8.7 mg/dL (7-18); CALCIUM 8.8 mg/dL (8.5-10.1); MAGNESIUM 1.9 mg/dL (1.8-2.4)
[2023-11-21 09:33] LABS: CREATININE 0.6 mg/dL (0.55-1.3)
[2023-11-21 09:35] LABS: BILIRUBIN,TOTAL 1.2 mg/dL (0.2-1); TOT PROT 6.1 g/dl (6.4-8.2)
[2023-11-21] MEDS: MEROPENEM 1 GM in DEXTROSE 5%-WATER 100 ML IVPB SCH (11:11)
[2023-11-22 07:39] LABS: BASO % 0.7 % (0-2.0); EOS % 3.1 % (0-4.5); HEMATOCRIT 35.4 % (32.4-45.2); HEMOGLOBIN 11.9 GM/dL (10.7-15.3); LYMPH % 18.1 % (8-40); MCH 30.9 pg (25.7-33.7); MCHC 33.6 g/dl (32.0-36.0); MEAN CELL VOLUME 92.1 fl (80-96); MEAN PLT VOLUME 7.3 fl (7.5-11.1); NEUT % 66.1 % (42.8-82.8); PLATELET COUNT 178 10^3/uL (134-434); RBC 3.84 M/mm3 (3.60-5.2); RDW 13.2 % (11.6-15.6); WHITE BLOOD COUNT 4.8 K/mm3 (4.0-10.0)
[2023-11-22 07:49] LABS: POTASSIUM 3.8 mmol/L (3.5-5.1)
[2023-11-22 07:57] LABS: CALCIUM 8.7 mg/dL (8.5-10.1)
[2023-11-22 07:58] LABS: ALBUMIN 2.9 g/dl (3.4-5.0); BLOOD UREA NITROGEN 6.9 mg/dL (7-18); MAGNESIUM 1.8 mg/dL (1.8-2.4)
[2023-11-22 08:01] LABS: CREATININE 0.6 mg/dL (0.55-1.3)
[2023-11-22 08:02] LABS: BILIRUBIN,TOTAL 0.6 mg/dL (0.2-1); TOT PROT 5.6 g/dl (6.4-8.2)
[2023-11-22] MEDS: MAGNESIUM OXIDE 400 MG TABLET (FP) PO ONE (10:01)
[2023-11-23 08:22] LABS: BASO % 0.8 % (0-2.0); EOS % 3.7 % (0-4.5); HEMATOCRIT 35.1 % (32.4-45.2); HEMOGLOBIN 11.7 GM/dL (10.7-15.3); LYMPH % 15.8 % (8-40); MCH 30.6 pg (25.7-33.7); MCHC 33.3 g/dl (32.0-36.0); MEAN CELL VOLUME 91.8 fl (80-96); MEAN PLT VOLUME 7.1 fl (7.5-11.1); MONO % 12.1 % (3.8-10.2); NEUT % 67.6 % (42.8-82.8); PLATELET COUNT 195 10^3/uL (134-434); RBC 3.82 M/mm3 (3.60-5.2); WHITE BLOOD COUNT 4.9 K/mm3 (4.0-10.0)
[2023-11-23 08:46] LABS: POTASSIUM 3.8 mmol/L (3.5-5.1)
[2023-11-23 08:52] LABS: CALCIUM 8.9 mg/dL (8.5-10.1)
[2023-11-23 08:53] LABS: ALBUMIN 3.2 g/dl (3.4-5.0)
[2023-11-23 08:55] LABS: BLOOD UREA NITROGEN 5.5 mg/dL (7-18)
[2023-11-23 08:56] LABS: CREATININE 0.4 mg/dL (0.55-1.3)
[2023-11-23 08:57] LABS: TOT PROT 6.3 g/dl (6.4-8.2)
[2023-11-23 09:03] LABS: BILIRUBIN,TOTAL 0.8 mg/dL (0.2-1)
[2023-11-23 15:16] VITALS: BP 125/67; PULSE 92; RESP 18; TEMP 98.6
[2023-11-24] MEDS ORDERED: ERTAPENEM SODIUM 1 GM in SODIUM CHLORIDE 50 ML IVPB SCH (10:00)
== END 2023-11-23 19:59 | DRG 689 ==
LOC: JER 17:34 → JERBED 20:37 → J8W 22:57
PROVIDERS: ADMIT Internal Medicine; ATTEND Nurse Practitioner Acute Care
DX: N39.0 Urinary tract infection, site not specified (principal); G93.41 Metabolic encephalopathy; I50.32 Chronic diastolic (congestive) heart failure; C90.00 Multiple myeloma not having achieved remission; E87.1 Hypo-osmolality and hyponatremia; I10 Essential (primary) hypertension; E78.5 Hyperlipidemia, unspecified; I11.0 Hypertensive heart disease with heart failure; I25.10 Atherosclerotic heart disease of native coronary artery without angina pectoris; J44.9 Chronic obstructive pulmonary disease, unspecified; K21.9 Gastro-esophageal reflux disease without esophagitis; I16.0 Hypertensive urgency; G25.0 Essential tremor; I48.91 Unspecified atrial fibrillation; R94.31 Abnormal electrocardiogram [ECG] [EKG]; E05.90 Thyrotoxicosis, unspecified without thyrotoxic crisis or storm
CPT/HCPCS: 0241U-QW; 36415; 70450-TC; 71045-TC-FY; 80053; 81003; 82570; 82803; 83605; 83735; 83935; 84100; 84300; 84439; 84443; 84484; 85025; 85610; 85730; 87081; 87086; 87186; 87635; 93005; 93010; 97116-GP; 97161-GP; 99285-25

== ENCOUNTER 2023-11-25 13:12 | Inpatient (IN) | payer OTHER ==
[2023-11-25 16:07] LABS: EPI CELLS 8 /uL (0-25.1); HYALINE CASTS 0 /uL (0-3.1); URINE APPEARANCE CLOUDY; URINE BACTERIA 46 /uL (0-1359); URINE BILIRUBIN NEGATIVE (NEGATIVE); URINE COLOR YELLOW; URINE GLUCOSE (UA) NEGATIVE (NEGATIVE); URINE KETONE NEGATIVE (NEGATIVE); URINE LEUK ESTERASE 3+ (NEGATIVE); URINE NITRITE NEGATIVE (NEGATIVE); URINE PROTEIN NEGATIVE (NEGATIVE); URINE RBC 12 /uL (0-23.9); URINE UROBILINOGEN 0.2 mg/dL (0.2-1.0); URINE WBC 1064 /uL (0-25.8)
[2023-11-25] MEDS: FUROSEMIDE 40 MG/4 ML INJECTABLE VIAL IVPUSH ONE (16:40)
[2023-11-25 17:31] LABS: VENOUS O2 SATURATION 49.8 % (70-80); VENOUS PH 7.285 (7.310-7.410)
[2023-11-25 17:32] LABS: VENOUS PCO2 84.3 mmHg (38-52)
[2023-11-25] MEDS ORDERED: FUROSEMIDE 40 MG/4 ML INJECTABLE VIAL ONE (17:43)
[2023-11-25 17:51] LABS: BASO % 0.5 % (0-2.0); EOS % 1.6 % (0-4.5); HEMATOCRIT 36.6 % (32.4-45.2); LYMPH % 19.2 % (8-40); MCH 30.3 pg (25.7-33.7); MCHC 32.9 g/dl (32.0-36.0); MEAN CELL VOLUME 92.2 fl (80-96); MEAN PLT VOLUME 9.2 fl (7.5-11.1); MONO % 12.4 % (3.8-10.2); NEUT % 66.3 % (42.8-82.8); RBC 3.97 M/mm3 (3.60-5.2); RDW 13.1 % (11.6-15.6); WHITE BLOOD COUNT 5.6 K/mm3 (4.0-10.0)
[2023-11-25 17:59] LABS: POTASSIUM 4.5 mmol/L (3.5-5.1)
[2023-11-25 18:01] LABS: CALCIUM 9.6 mg/dL (8.5-10.1)
[2023-11-25 18:02] LABS: ALBUMIN 3.2 g/dl (3.4-5.0); BLOOD UREA NITROGEN 6.7 mg/dL (7-18)
[2023-11-25 18:05] LABS: CREATININE 0.5 mg/dL (0.55-1.3)
[2023-11-25 18:07] LABS: BILIRUBIN,TOTAL 0.8 mg/dL (0.2-1); TOT PROT 6.5 g/dl (6.4-8.2)
[2023-11-25 18:10] LABS: N-TERMINAL BNP 9511.6 pg/ml (5-450)
[2023-11-25] MEDS ORDERED: ERTAPENEM SODIUM 1 GM VIAL ONE (18:25)
[2023-11-25 18:52] LABS: PLATELET COUNT 282 10^3/uL (134-434)
[2023-11-25] MEDS: ERTAPENEM SODIUM 1 GM in SODIUM CHLORIDE 50 ML IVPB ONE (18:54)
[2023-11-25 19:11] LABS: VENOUS BASE EXCESS 10.3 mmol/L (-2-2); VENOUS O2 SATURATION 87.8 % (70-80); VENOUS PCO2 63.6 mmHg (38-52); VENOUS PH 7.389 (7.310-7.410)
[2023-11-25 22:53] LABS: BLOOD UREA NITROGEN 7.3 mg/dL (7-18); CALCIUM 9.3 mg/dL (8.5-10.1)
[2023-11-25 22:57] LABS: CREATININE 0.6 mg/dL (0.55-1.3)
[2023-11-26 00:37] LABS: ARTERIAL BLD GAS O2 SATURATION 98.6 % (95-98); ARTERIAL BLOOD GAS BASE EXCESS 12.4 mmol/L (-2-2); ARTERIAL BLOOD GAS PO2 140.1 mmHg (80-100); ARTERIAL BLOOD GAS pH 7.363 (7.350-7.450)
[2023-11-26 00:39] LABS: ALLENS TEST POSITIVE; VENT MODE S/T; VENT RATE 16
[2023-11-26] MEDS ORDERED: methylPREDNISolone NA SUCC 40 MG/1 ML VIAL IVPUSH SCH (01:00)
[2023-11-26] MEDS ORDERED: methylPREDNISolone NA SUCC 40 MG/1 ML VIAL ONE (01:05)
[2023-11-26] MEDS: methylPREDNISolone NA SUCC 40 MG/1 ML VIAL IVPUSH SCH ×2 (01:45→17:12)
[2023-11-26] MEDS ORDERED: METOPROLOL TARTRATE 5 MG/5 ML VIAL IVPUSH PRN (06:01)
[2023-11-26] MEDS: METOPROLOL TARTRATE 5 MG/5 ML VIAL IVPUSH ONE (06:09)
[2023-11-26] MEDS: FUROSEMIDE 40 MG/4 ML INJECTABLE VIAL IVPUSH SCH (06:10)
[2023-11-26] MEDS: LEVALBUTEROL HCL 0.63 MG/3 ML VIAL.NEB. IH SCH (07:27)
[2023-11-26 07:56] LABS: ARTERIAL BLD GAS O2 SATURATION 99.5 % (95-98); ARTERIAL BLOOD GAS BASE EXCESS 10.5 mmol/L (-2-2); ARTERIAL BLOOD GAS PO2 224.4 mmHg (80-100); ARTERIAL BLOOD GAS pH 7.425 (7.350-7.450)
[2023-11-26 08:03] LABS: ALLENS TEST POSITIVE
[2023-11-26 08:04] LABS: VENT MODE S/T; VENT RATE 16
[2023-11-26 08:13] LABS: POTASSIUM 3.9 mmol/L (3.5-5.1)
[2023-11-26 08:16] LABS: HEMATOCRIT 37.2 % (32.4-45.2); HEMOGLOBIN 12.5 GM/dL (10.7-15.3); MCH 30.6 pg (25.7-33.7); MCHC 33.5 g/dl (32.0-36.0); MEAN CELL VOLUME 91.1 fl (80-96); MEAN PLT VOLUME 7.4 fl (7.5-11.1); PLATELET COUNT 187 10^3/uL (134-434); RBC 4.08 M/mm3 (3.60-5.2); RDW 13.2 % (11.6-15.6); WHITE BLOOD COUNT 5.2 K/mm3 (4.0-10.0)
[2023-11-26 08:19] LABS: ALBUMIN 3.1 g/dl (3.4-5.0); BLOOD UREA NITROGEN 8.9 mg/dL (7-18); CALCIUM 9.6 mg/dL (8.5-10.1); MAGNESIUM 1.8 mg/dL (1.8-2.4)
[2023-11-26 08:23] LABS: CREATININE 0.5 mg/dL (0.55-1.3); PHOSPHOROUS 2.3 mg/dL (2.5-4.9)
[2023-11-26 08:24] LABS: BILIRUBIN,TOTAL 0.8 mg/dL (0.2-1); TOT PROT 6.4 g/dl (6.4-8.2)
[2023-11-26] MEDS: APIXABAN 5 MG TABLET PO SCH (09:10)
[2023-11-26] MEDS: propRANOLol HCL 10 MG TABLET PO SCH (09:11)
[2023-11-26] MEDS: BUDESONIDE/FORMETEROL FUMARATE 160/4.5 mcg INHALER IH SCH (10:02)
[2023-11-26] MEDS: METOPROLOL TARTRATE 25 MG TABLET (FP) PO SCH (10:02)
[2023-11-26] MEDS: FUROSEMIDE 40 MG/4 ML INJECTABLE VIAL IVPUSH ONE (16:41)
[2023-11-26] MEDS ORDERED: ERTAPENEM SODIUM 0.5 GM in SODIUM CHLORIDE 50 ML IVPB SCH (18:00)
[2023-11-26] MEDS: ERTAPENEM SODIUM 1 GM in SODIUM CHLORIDE 50 ML IVPB SCH (18:20)
[2023-11-26] MEDS: LACTOBACILLUS ACIDOPHILUS 1 TABLET PO SCH (21:19)
[2023-11-26] MEDS: ATORVASTATIN CA 10 MG TABLET (FP) PO SCH (21:20)
[2023-11-27 08:04] LABS: POTASSIUM 3.6 mmol/L (3.5-5.1)
[2023-11-27 08:08] LABS: CALCIUM 9.7 mg/dL (8.5-10.1)
[2023-11-27 08:09] LABS: ALBUMIN 3.1 g/dl (3.4-5.0); MAGNESIUM 1.8 mg/dL (1.8-2.4)
[2023-11-27 08:12] LABS: CREATININE 0.6 mg/dL (0.55-1.3); PHOSPHOROUS 2.7 mg/dL (2.5-4.9)
[2023-11-27 08:14] LABS: BILIRUBIN,TOTAL 0.8 mg/dL (0.2-1); TOT PROT 6.2 g/dl (6.4-8.2)
[2023-11-27 08:23] LABS: HEMATOCRIT 34.5 % (32.4-45.2); HEMOGLOBIN 11.9 GM/dL (10.7-15.3); LYMPH % 12.6 % (8-40); MCH 30.9 pg (25.7-33.7); MCHC 34.6 g/dl (32.0-36.0); MEAN CELL VOLUME 89.4 fl (80-96); MEAN PLT VOLUME 7.2 fl (7.5-11.1); MONO % 3.7 % (3.8-10.2); NEUT % 83.7 % (42.8-82.8); PLATELET COUNT 210 10^3/uL (134-434); RBC 3.86 M/mm3 (3.60-5.2); RDW 12.8 % (11.6-15.6); WHITE BLOOD COUNT 3.6 K/mm3 (4.0-10.0)
[2023-11-27] MEDS: methylPREDNISolone NA SUCC 40 MG/1 ML VIAL IVPUSH SCH (10:51)
[2023-11-27] MEDS ORDERED: MAGNESIUM SULF 50% (8.12 MEQ/2 ML-1 GM VIAL) IVPB ONE (11:47)
[2023-11-27] MEDS ORDERED: NAPH,MB-DB/K PH,MBDB POWDER PACKET PO ONE (11:47)
[2023-11-27 14:39] VITALS: BMI 28.7
[2023-11-27] MEDS: NAPH,MB-DB/K PH,MBDB POWDER PACKET PO ONE (14:53)
[2023-11-27] MEDS: MAGNESIUM SULF 50% (8.12 MEQ/2 ML-1 GM VIAL) IVPB ONE (14:53)
[2023-11-27] MEDS: METOPROLOL TARTRATE 50 MG TABLET (FP) PO SCH (21:26)
[2023-11-28] MEDS: FUROSEMIDE 40 MG TABLET (FP) PO SCH (10:40)
[2023-11-28 12:40] LABS: BASO % 0.1 % (0-2.0); EOS % 0.2 % (0-4.5); HEMATOCRIT 37.4 % (32.4-45.2); HEMOGLOBIN 12.6 GM/dL (10.7-15.3); LYMPH % 11.1 % (8-40); MCH 30.3 pg (25.7-33.7); MCHC 33.6 g/dl (32.0-36.0); MEAN CELL VOLUME 90.1 fl (80-96); MEAN PLT VOLUME 7.1 fl (7.5-11.1); MONO % 9.1 % (3.8-10.2); NEUT % 79.5 % (42.8-82.8); PLATELET COUNT 233 10^3/uL (134-434); RBC 4.15 M/mm3 (3.60-5.2); RDW 13.2 % (11.6-15.6); WHITE BLOOD COUNT 6.6 K/mm3 (4.0-10.0)
[2023-11-28 12:58] LABS: POTASSIUM 3.3 mmol/L (3.5-5.1)
[2023-11-28 13:02] LABS: CALCIUM 10.6 mg/dL (8.5-10.1)
[2023-11-28 13:04] LABS: ALBUMIN 3.4 g/dl (3.4-5.0); BLOOD UREA NITROGEN 24.6 mg/dL (7-18); MAGNESIUM 2.6 mg/dL (1.8-2.4)
[2023-11-28 13:07] LABS: BILIRUBIN,TOTAL 0.8 mg/dL (0.2-1); CREATININE 0.6 mg/dL (0.55-1.3); PHOSPHOROUS 2.9 mg/dL (2.5-4.9)
[2023-11-28 13:11] LABS: TOT PROT 6.5 g/dl (6.4-8.2)
[2023-11-28] MEDS: POTASSIUM CHLORIDE ORAL LIQUID 20 MEQ/15 ML PO ONE (18:34)
[2023-11-28] MEDS: METOPROLOL TARTRATE 50 MG TABLET (FP) PO SCH (21:49)
[2023-11-29 07:09] LABS: BASO % 0.3 % (0-2.0); EOS % 0.3 % (0-4.5); HEMATOCRIT 39.1 % (32.4-45.2); HEMOGLOBIN 12.8 GM/dL (10.7-15.3); LYMPH % 20.1 % (8-40); MCH 29.7 pg (25.7-33.7); MCHC 32.7 g/dl (32.0-36.0); MEAN CELL VOLUME 90.8 fl (80-96); MEAN PLT VOLUME 6.9 fl (7.5-11.1); MONO % 11.7 % (3.8-10.2); NEUT % 67.6 % (42.8-82.8); PLATELET COUNT 242 10^3/uL (134-434); RBC 4.31 M/mm3 (3.60-5.2); RDW 13.3 % (11.6-15.6); WHITE BLOOD COUNT 7.1 K/mm3 (4.0-10.0)
[2023-11-29 07:27] LABS: POTASSIUM 3.6 mmol/L (3.5-5.1)
[2023-11-29 07:29] LABS: ALBUMIN 3.3 g/dl (3.4-5.0); BLOOD UREA NITROGEN 25.8 mg/dL (7-18); CALCIUM 10.1 mg/dL (8.5-10.1); MAGNESIUM 2.4 mg/dL (1.8-2.4)
[2023-11-29 07:32] LABS: CREATININE 0.6 mg/dL (0.55-1.3)
[2023-11-29 07:33] LABS: PHOSPHOROUS 3.1 mg/dL (2.5-4.9)
[2023-11-29 07:34] LABS: BILIRUBIN,TOTAL 0.9 mg/dL (0.2-1); TOT PROT 6.4 g/dl (6.4-8.2)
[2023-11-29] MEDS: predniSONE 20 MG TABLET (UD) PO SCH (10:16)
[2023-11-29] MEDS: POLYETHYLENE GLYCOL (HEALTHYLAX) 3350 17 GM PACKET PO SCH (10:18)
[2023-11-29 19:24] VITALS: RESP 18
[2023-11-30 07:59] LABS: HEMATOCRIT 37.5 % (32.4-45.2); HEMOGLOBIN 12.4 GM/dL (10.7-15.3); MCH 30.1 pg (25.7-33.7); MEAN CELL VOLUME 91.3 fl (80-96); MEAN PLT VOLUME 7.1 fl (7.5-11.1); PLATELET COUNT 214 10^3/uL (134-434); RBC 4.11 M/mm3 (3.60-5.2); RDW 13.1 % (11.6-15.6); WHITE BLOOD COUNT 5.3 K/mm3 (4.0-10.0)
[2023-11-30 08:15] LABS: POTASSIUM 3.7 mmol/L (3.5-5.1)
[2023-11-30 08:18] LABS: ALBUMIN 3.1 g/dl (3.4-5.0); BLOOD UREA NITROGEN 26.4 mg/dL (7-18); CALCIUM 9.9 mg/dL (8.5-10.1); MAGNESIUM 2.3 mg/dL (1.8-2.4)
[2023-11-30 08:21] LABS: CREATININE 0.5 mg/dL (0.55-1.3); PHOSPHOROUS 3.1 mg/dL (2.5-4.9)
[2023-11-30 08:23] LABS: TOT PROT 5.9 g/dl (6.4-8.2)
[2023-11-30 08:26] VITALS: PULSE 95
[2023-11-30] MEDS: ASPIRIN COATED 81 MG TABLET.EC PO SCH (09:22)
[2023-11-30 11:42] VITALS: BP 112/64; TEMP 98.2
== END 2023-11-30 11:46 | DRG 291 ==
LOC: JER 13:12 → JERBED 19:42 → J4W 11-26 03:05
PROVIDERS: ADMIT Internal Medicine; ATTEND Internal Medicine
DX: I11.0 Hypertensive heart disease with heart failure (principal); I50.33 Acute on chronic diastolic (congestive) heart failure; J96.21 Acute and chronic respiratory failure with hypoxia; J96.22 Acute and chronic respiratory failure with hypercapnia; J44.1 Chronic obstructive pulmonary disease with (acute) exacerbation; C90.00 Multiple myeloma not having achieved remission; I48.19 Other persistent atrial fibrillation; I24.89 Other forms of acute ischemic heart disease; N39.0 Urinary tract infection, site not specified; E78.5 Hyperlipidemia, unspecified; I25.10 Atherosclerotic heart disease of native coronary artery without angina pectoris; K57.90 Diverticulosis of intestine, part unspecified, without perforation or abscess without bleeding; B96.20 Unspecified Escherichia coli [E. coli] as the cause of diseases classified elsewhere; K21.9 Gastro-esophageal reflux disease without esophagitis; Z96.642 Presence of left artificial hip joint; Z95.5 Presence of coronary angioplasty implant and graft; Z89.611 Acquired absence of right leg above knee
CPT/HCPCS: 36415; 36600; 71045-TC-FY; 80048; 80053; 81003; 82803; 83605; 83735; 83880; 84100; 84439; 84443; 84481; 84484; 85025; 85027; 85379; 85610; 85730; 87040; 87086; 87633; 87899; 93005; 93010; 94660; 97116-GP; 97162-GP; 99285-25